=== PATIENT | male | born 1955 | race Caucasian/White ===

== ENCOUNTER 2020-01-26 12:43 | Inpatient (IN) | payer BC, MEDICARE ==
[2020-01-26] MEDS ORDERED: FUROSEMIDE 10 MG/ML 4 ML VIAL IV STA ×2 (13:06→18:27)
--- NOTE | 2020-01-26 13:12 | ED ---
General Adult HPI - General Chief complaint: Weakness Stated complaint: SOB Time Seen by Provider: 01/26/20 12:53 Source: patient, RN notes reviewed Mode of arrival: ambulatory Limitations: no limitations - History of Present Illness Initial comments: Patient is a pleasant 64-year-old male presenting to the emergency Department with complaints of fatigue. Symptoms have been present for the past month. Patient does have some leg edema. Patient does have some mild dyspnea. Patient feels somewhat generally weak throughout, no isolated area of weakness. No confusion. Patient did see his doctor today and was advised come the emergency department. Her pressure has been high at home, as high as 210/110 - Related Data Home Medications Medication Instructions Recorded Confirmed Cholecalciferol (Vitamin D3) 125 mcg PO DAILY 01/26/20 01/26/20 [Vitamin D3] Lisinopril [Zestril] 30 mg PO DAILY 01/26/20 01/26/20 Magnesium Oxide 400 mg PO DAILY 01/26/20 01/26/20 Tamsulosin HCl [Flomax] 0.4 mg PO HS 01/26/20 01/26/20 metFORMIN HCL ER [Glucophage Xr] 500 mg PO HS 01/26/20 01/26/20 Allergies Allergy/AdvReac Type Severity Reaction Status Date / Time Penicillins Allergy Rash/Hives Verified 01/26/20 14:10 Review of Systems ROS Statement: Those systems with pertinent positive or pertinent negative responses have been documented in the HPI. ROS Other: All systems not noted in ROS Statement are negative. Constitutional: Denies: fever Eyes: Denies: eye pain ENT: Denies: ear pain Respiratory: Reports: cough (Chest feels congested), dyspnea Cardiovascular: Denies: chest pain Endocrine: Reports: fatigue Gastrointestinal: Denies: abdominal pain Genitourinary: Denies: dysuria Musculoskeletal: Denies: back pain Skin: Denies: rash Neurological: Denies: weakness Past Medical History Past Medical History: Diabetes Mellitus, Hypertension History of Any Multi-Drug Resistant Organisms: None Reported Past Surgical History: No Surgical Hx Reported Past Psychological History: No Psychological Hx Reported Smoking Status: Former smoker Past Alcohol Use History: None Reported Past Drug Use History: None Reported General Exam Limitations: no limitations General appearance: alert, in no apparent distress Head exam: Present: normocephalic Eye exam: Present: normal appearance, PERRL Neck exam: Present: normal inspection Respiratory exam: Present: normal lung sounds bilaterally Cardiovascular Exam: Present: regular rate, normal rhythm GI/Abdominal exam: Present: soft. Absent: tenderness Extremities exam: Present: normal inspection, pedal edema (+1 bilateral). Absent: calf tenderness Back exam: Present: normal inspection Neurological exam: Present: alert Psychiatric exam: Present: normal affect, normal mood Skin exam: Present: normal color Course Vital Signs 01/26/20 01/26/20 12:45 14:14 Temperature 98.5 F Pulse Rate 92 65 Respiratory 16 16 Rate Blood Pressure 231/103 183/113 O2 Sat by Pulse 96 94 L Oximetry - Reevaluation(s) Reevaluation #1: 01/26/20 14:24 Chest x-ray is questionable for pneumonia. Patient does have mild elevation of white blood cell count and heart rate and therefore meets sepsis criteria. Blood culture and lactic acid will be ordered. IV antibiotics will be ordered. EKG Findings - EKG Comments: EKG Findings:: Sinus rhythm at 68. RI 126. QRS 136. QT 444. QTC 472. Normal axis. Right bundle branch block. No acute ST change. Medical Decision Making - Medical Decision Making Patient reevaluated and updated. Case discussed in detail Dr. Snowden, who will admit. He requests pro calcitonin level and cardiology consult. - Lab Data Result diagrams: 01/26/20 13:12 01/26/20 13:12 Lab Results 01/26/20 01/26/20 01/26/20 Range/Units 13:12 13:12 13:12 WBC 12.7 H (3.8-10.6) k/uL RBC 4.90 (4.30-5.90) m/uL Hgb 15.1 (13.0-17.5) gm/dL Hct 46.3 (39.0-53.0) % MCV 94.4 (80.0-100.0) fL MCH 30.8 (25.0-35.0) pg MCHC 32.7 (31.0-37.0) g/dL RDW 13.9 (11.5-15.5) % Plt Count 200 (150-450) k/uL Neutrophils % 89 % Lymphocytes % 5 % Monocytes % 5 % Eosinophils % 0 % Basophils % 0 % Neutrophils # 11.2 H (1.3-7.7) k/uL Lymphocytes # 0.6 L (1.0-4.8) k/uL Monocytes # 0.7 (0-1.0) k/uL Eosinophils # 0.0 (0-0.7) k/uL Basophils # 0.0 (0-0.2) k/uL PT 10.2 (9.0-12.0) sec INR 1.0 (<1.2) APTT 20.0 L (22.0-30.0) sec Sodium 138 (137-145) mmol/L Potassium 3.5 (3.5-5.1) mmol/L Chloride 103 (98-107) mmol/L Carbon Dioxide 26 (22-30) mmol/L Anion Gap 9 mmol/L BUN 23 H (9-20) mg/dL Creatinine 0.74 (0.66-1.25) mg/dL Est GFR (CKD-EPI)AfAm >90 (>60 ml/min/1.73 sqM) Est GFR (CKD-EPI)NonAf >90 (>60 ml/min/1.73 sqM) Glucose 381 H (74-99) mg/dL Calcium 9.2 (8.4-10.2) mg/dL Total Bilirubin 0.8 (0.2-1.3) mg/dL AST 26 (17-59) U/L ALT 33 (4-49) U/L Alkaline Phosphatase 53 (38-126) U/L Creatine Kinase 70 (55-170) U/L Troponin I (0.000-0.034) ng/mL NT-Pro-B Natriuret Pep pg/mL Total Protein 6.1 L (6.3-8.2) g/dL Albumin 3.9 (3.5-5.0) g/dL Urine Color Urine Appearance (Clear) Urine pH (5.0-8.0) Ur Specific Atlas (1.001-1.035) Urine Protein (Negative) Urine Glucose (UA) (Negative) Urine Ketones (Negative) Urine Blood (Negative) Urine Nitrite (Negative) Urine Bilirubin (Negative) Urine Urobilinogen (<2.0) mg/dL Ur Leukocyte Esterase (Negative) Urine RBC (0-5) /hpf Urine WBC (0-5) /hpf 07/16/20 07/16/20 07/16/20 Range/Units 13:12 13:12 13:32 WBC (3.8-10.6) k/uL RBC (4.30-5.90) m/uL Hgb (13.0-17.5) gm/dL Hct (39.0-53.0) % MCV (80.0-100.0) fL MCH (25.0-35.0) pg MCHC (31.0-37.0) g/dL RDW (11.5-15.5) % Plt Count (150-450) k/uL Neutrophils % % Lymphocytes % % Monocytes % % Eosinophils % % Basophils % % Neutrophils # (1.3-7.7) k/uL Lymphocytes # (1.0-4.8) k/uL Monocytes # (0-1.0) k/uL Eosinophils # (0-0.7) k/uL Basophils # (0-0.2) k/uL PT (9.0-12.0) sec INR (<1.2) APTT (22.0-30.0) sec Sodium (137-145) mmol/L Potassium (3.5-5.1) mmol/L Chloride (98-107) mmol/L Carbon Dioxide (22-30) mmol/L Anion Gap mmol/L BUN (9-20) mg/dL Creatinine (0.66-1.25) mg/dL Est GFR (CKD-EPI)AfAm (>60 ml/min/1.73 sqM) Est GFR (CKD-EPI)NonAf (>60 ml/min/1.73 sqM) Glucose (74-99) mg/dL Calcium (8.4-10.2) mg/dL Total Bilirubin (0.2-1.3) mg/dL AST (17-59) U/L ALT (4-49) U/L Alkaline Phosphatase (38-126) U/L Creatine Kinase (55-170) U/L Troponin I 0.031 (0.000-0.034) ng/mL NT-Pro-B Natriuret Pep 955 pg/mL Total Protein (6.3-8.2) g/dL Albumin (3.5-5.0) g/dL Urine Color Light Yellow Urine Appearance Clear (Clear) Urine pH 7.0 (5.0-8.0) Ur Specific Atlas 1.023 (1.001-1.035) Urine Protein 2+ H (Negative) Urine Glucose (UA) 4+ H (Negative) Urine Ketones Negative (Negative) Urine Blood Small H (Negative) Urine Nitrite Negative (Negative) Urine Bilirubin Negative (Negative) Urine Urobilinogen <2.0 (<2.0) mg/dL Ur Leukocyte Esterase Negative (Negative) Urine RBC 1 (0-5) /hpf Urine WBC 1 (0-5) /hpf - Radiology Data Radiology results: image reviewed (Chest x-ray shows questionable infiltrate) Critical Care Time Critical Care Time: Yes Total Critical Care Time: 32 Disposition Clinical Impression: Hypertensive urgency, Hyperglycemia, Pneumonia, Sepsis Disposition: ADMITTED IP TO THIS HOSP Is patient prescribed a controlled substance at d/c from ED?: No Referrals: Arely Snowden DO [Primary Care Provider] - 1-2 days Decision Time: 14:24
[2020-01-26 13:36] LABS: Basophils % (A) 0 %; Eosinophils % (A) 0 %; HCT 46.3 % (39.0-53.0); HGB 15.1 gm/dL (13.0-17.5); Lymphocytes # (A) 0.6 k/uL (1.0-4.8); Lymphocytes % (A) 5 %; MCH 30.8 pg (25.0-35.0); MCHC 32.7 g/dL (31.0-37.0); MCV 94.4 fL (80.0-100.0); Mean Platelet Volume 7.4; Monocytes # (A) 0.7 k/uL (0-1.0); Monocytes % (A) 5 %; Neutrophils # (A) 11.2 k/uL (1.3-7.7); Neutrophils % (A) 89 %; Platelet Count 200 k/uL (150-450); RDW 13.9 % (11.5-15.5); WBC 12.7 k/uL (3.8-10.6)
[2020-01-26] MEDS ORDERED: NITROGLYCERIN OINT 1 INCH/GM PACKET TOPICAL STA (13:44)
[2020-01-26 13:50] LABS: Prothrombin Time 10.2 sec (9.0-12.0)
[2020-01-26 13:56] LABS: ALT 33 U/L (4-49); AST 26 U/L (17-59); African American GFR (CKD) >90 (>60 ml/min/1.73 sqM); Albumin 3.9 g/dL (3.5-5.0); Alkaline Phosphatase 53 U/L (38-126); Anion Gap 9 mmol/L; Blood Urea Nitrogen 23 mg/dL (9-20); Calcium 9.2 mg/dL (8.4-10.2); Carbon Dioxide 26 mmol/L (22-30); Chloride 103 mmol/L (98-107); Creatine Kinase 70 U/L (55-170); Glucose 381 mg/dL (74-99); Non-African American GFR(CKD) >90 (>60 ml/min/1.73 sqM); Potassium 3.5 mmol/L (3.5-5.1); Sodium 138 mmol/L (137-145); Total Bilirubin 0.8 mg/dL (0.2-1.3); Total Protein 6.1 g/dL (6.3-8.2)
[2020-01-26 14:04] LABS: Appearance,Urine Clear (Clear); Bilirubin,Urine Negative (Negative); Blood,Urine Small (Negative); Color,Urine Light Yellow; Glucose,Urine (UA) 4+ (Negative); Ketones,Urine Negative (Negative); Leukocyte Esterase,Urine Negative (Negative); Nitrite,Urine Negative (Negative); Protein,Urine 2+ (Negative); RBC,Urine 1 /hpf (0-5); Specific Gravity,Urine 1.023 (1.001-1.035); Urobilinogen,Urine <2.0 mg/dL (<2.0); WBC,Urine 1 /hpf (0-5)
--- NOTE | 2020-01-26 14:09 | XR ---
EXAMINATION TYPE: XR chest 2V DATE OF EXAM: 01/26/2020 COMPARISON: NONE HISTORY: Difficulty breathing, shortness of breath TECHNIQUE: Frontal and lateral views of the chest are obtained. FINDINGS: There is questionable minimal patchy bilateral density, pleural effusion, or pneumothorax seen. The cardiac silhouette size is within normal limits. The osseous structures are intact. Aort a is dense. IMPRESSION: Correlate for pneumonia
[2020-01-26] MEDS ORDERED: ENALAPRILAT 1.25 MG/ML 1 ML VIAL IVP STA (14:33)
[2020-01-26] MEDS ORDERED: PNEUMONIA PROTOCOL UTILIZED 1 EACH MISC PO PRN (14:34)
[2020-01-26] MEDS ORDERED: AZITHROMYCIN 500 MG in SODIUM CHLORIDE 0.9% 250 ML IVPB STA (14:34)
[2020-01-26 15:10] LABS: Glucose,Whole Blood 342 mg/dL (75-99)
[2020-01-26] MEDS: INSULIN ASPART (NovoLOG) 100 UNIT/ML VIAL SQ SCH ×2 (16:25→21:42)
[2020-01-26 16:30] LABS: Glucose,Whole Blood 373 mg/dL (75-99)
[2020-01-26] MEDS: ENALAPRILAT 1.25 MG/ML 1 ML VIAL IVP PRN (16:35)
[2020-01-26] MEDS ORDERED: hydrALAZINE HCL 20 MG/ML 1 ML VIAL IVP STA (18:27)
[2020-01-26 20:27] LABS: Glucose,Whole Blood 214 mg/dL (75-99)
[2020-01-27] MEDS: ENALAPRILAT 1.25 MG/ML 1 ML VIAL IVP PRN ×2 (00:30→20:46)
[2020-01-27 06:01] LABS: Glucose,Whole Blood 224 mg/dL (75-99)
[2020-01-27] MEDS: INSULIN ASPART (NovoLOG) 100 UNIT/ML VIAL SQ SCH ×4 (06:59→19:49)
--- NOTE | 2020-01-27 08:04 | XR ---
EXAMINATION TYPE: XR chest 2V DATE OF EXAM: 01/27/2020 COMPARISON: 01/26/2020 INDICATION: Pneumonia TECHNIQUE: Frontal and lateral views of the chest are obtained. FINDINGS: The heart size is normal. The pulmonary vasculature is normal. Minimal increased lung markings are in the lower lung bonner. Suspicious focal consolidations are no t evident. IMPRESSION: 1. Minimal stable nonspecific lung markings 2. Exam appears stable from comparison.
[2020-01-27] MEDS ORDERED: METOPROLOL TARTRATE 25 MG TAB PO SCH (09:00)
[2020-01-27 09:17] LABS: Basophils % (A) 0 %; Eosinophils % (A) 0 %; HGB 15.5 gm/dL (13.0-17.5); Lymphocytes # (A) 0.8 k/uL (1.0-4.8); Lymphocytes % (A) 6 %; MCH 30.6 pg (25.0-35.0); MCV 92.7 fL (80.0-100.0); Mean Platelet Volume 7.3; Monocytes # (A) 0.8 k/uL (0-1.0); Monocytes % (A) 6 %; Neutrophils # (A) 11.9 k/uL (1.3-7.7); Neutrophils % (A) 87 %; Platelet Count 221 k/uL (150-450); RBC 5.07 m/uL (4.30-5.90); RDW 13.7 % (11.5-15.5); WBC 13.6 k/uL (3.8-10.6)
[2020-01-27 09:25] LABS: African American GFR (CKD) >90 (>60 ml/min/1.73 sqM); Anion Gap 12 mmol/L; Blood Urea Nitrogen 23 mg/dL (9-20); Calcium 8.7 mg/dL (8.4-10.2); Carbon Dioxide 29 mmol/L (22-30); Chloride 98 mmol/L (98-107); Glucose 310 mg/dL (74-99); Non-African American GFR(CKD) >90 (>60 ml/min/1.73 sqM); Sodium 139 mmol/L (137-145)
[2020-01-27 09:32] LABS: Potassium 2.5 mmol/L (3.5-5.1)
[2020-01-27] MEDS ORDERED: Potassium Replacement Protocol 1 EACH MISC MISCELLANE PRN (09:50)
[2020-01-27] MEDS: hydrALAZINE HCL 50 MG TAB PO SCH ×3 (09:52→21:49)
[2020-01-27] MEDS: lisinopriL 20 MG TAB PO SCH ×2 (09:52→19:47)
[2020-01-27] MEDS: amLODIPine 5 MG TAB PO SCH ×2 (09:52→19:47)
[2020-01-27] MEDS: AZITHROMYCIN 500 MG TAB PO SCH (09:52)
[2020-01-27] MEDS ORDERED: POTASSIUM CHLORIDE 20 MEQ in WATER FOR INJECTION 1 100ML.BAG IVPB SCH (10:00)
[2020-01-27] MEDS: POTASSIUM CHLORIDE ER 20 MEQ TAB.ER PO SCH ×8 (10:17→21:49)
[2020-01-27 11:34] VITALS: BMI 27.3
[2020-01-27 12:07] LABS: Glucose,Whole Blood 281 mg/dL (75-99)
--- NOTE | 2020-01-27 13:45 | ECHOF ---
Referral Reason:hypertension MEASUREMENTS -------- HEIGHT: 180.3 cm WEIGHT: 88.5 kg BP: 180/97 RVIDd: 3.3 cm (< 3.3) IVSd: 1.6 cm (0.6 - 1.1) LVIDd: 4.0 cm (3.9 - 5.3) LVPWd: 1.3 cm (0.6 - 1.1) IVSs: 2.0 cm LVIDs: 2.5 cm LVPWs: 2.1 cm LAESV Index (A-L): 23.95 ml/m Ao Diam: 3.7 cm (2.0 - 3.7) AV Cusp: 2.3 cm (1.5 - 2.6) MV EXCURSION: 13.189 mm (> 18.000) MV EF SLOPE: 69 mm/s (70 - 150) EPSS: 1.2 cm MV E Roger: 0.95 m/s MV DecT: 248 ms MV A Roger: 1.30 m/s MV E/A Ratio: 0.73 RAP: 5.00 mmHg RVSP: 22.32 mmHg FINDINGS -------- Sinus rhythm. This was a technically difficult study with suboptimal views. The left ventricular size is normal. There is moderate concentric left ventricular hypertrophy. O verall left ventricular systolic function is normal with, an EF between 55 - 60 %. The diastolic fi lling pattern is normal for the age of the patient 12.75. The right ventricle is normal in size. Normal LA size by volume 22+/-6 ml/m2. The right atrial size is normal. xx ml of Lumason was utilized for enhancement of images. Interatrial and interventricular septum intact. There is mild aortic valve sclerosis. There is no evidence of aortic regurgitation. There is no e vidence of aortic stenosis. The mitral valve is normal. Mild mitral regurgitation is present. The tricuspid valve appears structurally normal. Mild tricuspid regurgitation present. Right vent ricular systolic pressure is normal at < 35 mmHg. The right ventricular systolic pressure, as measu red by Doppler, is 22.32mmHg. There is no pulmonic regurgitation present. The aortic root size is normal. IVC Not well visulized. There is no pericardial effusion. CONCLUSIONS -------- 1. There is moderate concentric left ventricular hypertrophy. 2. Overall left ventricular systolic function is normal with, an EF between 55 - 60 %. 3. The diastolic filling pattern is normal for the age of the patient 12.75 4. Normal LA size by volume 22+/-6 ml/m2. 5. There is mild aortic valve sclerosis. 6. Mild mitral regurgitation is present. 7. Mild tricuspid regurgitation present. SMOKING PIPE MOUNTER: Awa Kurtz RDCS
[2020-01-27 16:48] LABS: Glucose,Whole Blood 281 mg/dL (75-99)
[2020-01-27 18:21] LABS: Hemoglobin A1C 7.8 % (4.0-6.0)
--- NOTE | 2020-01-27 18:50 | CONS ---
CONSULTATION This is a 64-year-old gentleman, a patient of Dr. Arely Snowden, who has been admitted to the hospital with accelerated hypertension. Apparently this gentleman has type 2 diabetes and also hypertension, but of late his blood pressure control has been suboptimal. He also has benign prostatic hypertrophy. He came into the emergency room with complaints of fatigue, lack of energy, some shortness of breath, and he was found to have accelerated blood pressure of 210/110. He saw his primary care physician, who advised him to go to the emergency room. At the time of my evaluation, his blood pressure is still elevated but definitely better. He is resting comfortably. Does not have any headache, chest pain, shortness of breath or palpitations. He tells me that his blood sugar control has also been suboptimal. He is not able to exercise much. He does not have much energy and has fatigue. PAST MEDICAL HISTORY: 1. Hypertension. 2. Type 2 diabetes. 3. No evidence of any prior surgeries. 4. No evidence of any prior myocardial infarction, CVA or any stress testing. ALLERGIES: PENICILLIN. MEDICATIONS: Vitamin D supplement, Zestril 30 mg daily, magnesium supplements, Flomax 0.4 mg daily, and metformin 500 mg daily. PHYSICAL EXAMINATION: On examination, blood pressure was 170/80. Pulse rate was about 70 per minute, regular. HEENT unremarkable. Fundus was not examined by me. Neck is supple. There is no JVD. I do not hear a carotid bruit. Heart exam reveals S1, S2. There is a short systolic murmur. Lungs reveal decent air entry. Abdomen is soft, nontender. Lower extremities reveal diminished pulses. Central nervous system is normal. EKG revealed sinus mechanism, right bundle. No other acute changes. LABORATORY DATA: Laboratory data revealed that his potassium was low this morning. His initial troponin level was unremarkable. IMPRESSION: 1. Accelerated hypertension. 2. Uncontrolled diabetes. 3. No evidence of any documented coronary artery disease in the past. RECOMMENDATIONS: I am recommending that we optimize his blood pressure first. I will check a hemoglobin A1c also. Amlodipine 5 mg b.i.d., metoprolol 25 mg daily, hydralazine 50 mg t.i.d., and also try lisinopril 20 mg daily. Obtain echocardiogram to assess LV function. Based on these findings, I will make further recommendations. We will also correct the potassium level. I discussed my thoughts in detail with the patient. Thank you very much for the consult. ERICK / CARON: [id number] /
[2020-01-27 19:46] LABS: Glucose,Whole Blood 324 mg/dL (75-99)
[2020-01-27] MEDS: traZODone HCL 50 MG TAB PO PRN (21:49)
--- NOTE | 2020-01-27 23:39 | P.HPIM ---
History of Present Illness H&P Date: 01/27/20 Chief Complaint: malaise, fatigue Eitan Quezada is a 64 yo M with PMH of HTN, T2DM who presented to the ED on the recommendation of his PCP with hypertensive emergency. He notes he has been feeling increasing fatigued and malaised over the past few days, not like himself and less exercise tolerance. Pt has been noting shortness of breath with ambulation. He denies any chest pain, palpitations or orthopnea. He was seen at PCP office with these concerns and found to have accelerated hypertension and was recommended to come to the hospital. On presentation his BP was 231/103, WBC 12k, lactic 3.3, renal function normal. EKG and trop normal. CXR with bilateral infiltrate. Pt was started on abx and given hydralazine and lasix with some improvement in his BP. Review of Systems All systems: negative Constitutional: Reports malaise, Reports weakness, Denies chills, Denies fever Eyes: denies blurred vision, denies pain Ears, nose, mouth and throat: Denies headache, Denies sore throat Cardiovascular: Denies chest pain, Denies shortness of breath Respiratory: Reports as per HPI, Reports cough, Reports dyspnea Gastrointestinal: Denies abdominal pain, Denies diarrhea, Denies nausea, Denies vomiting Musculoskeletal: Denies myalgias Integumentary: Denies pruritus, Denies rash Neurological: Denies numbness, Denies weakness Psychiatric: Denies anxiety, Denies depression Endocrine: Denies fatigue, Denies weight change Past Medical History Past Medical History: Diabetes Mellitus, Hypertension Additional Past Medical History / Comment(s): Enlarged prostate History of Any Multi-Drug Resistant Organisms: None Reported Past Surgical History: No Surgical Hx Reported Past Anesthesia/Blood Transfusion Reactions: No Reported Reaction Past Psychological History: No Psychological Hx Reported Smoking Status: Former smoker Past Alcohol Use History: None Reported Past Drug Use History: None Reported Medications and Allergies Home Medications Medication Instructions Recorded Confirmed Type Cholecalciferol (Vitamin D3) 125 mcg PO DAILY 01/26/20 01/26/20 History [Vitamin D3] Lisinopril [Zestril] 30 mg PO DAILY 01/26/20 01/26/20 History Magnesium Oxide 400 mg PO DAILY 01/26/20 01/26/20 History Tamsulosin HCl [Flomax] 0.4 mg PO HS 01/26/20 01/26/20 History metFORMIN HCL ER [Glucophage Xr] 500 mg PO HS 01/26/20 01/26/20 History Allergies Allergy/AdvReac Type Severity Reaction Status Date / Time Penicillins Allergy Rash/Hives Verified 01/26/20 14:10 Physical Exam Vitals: Vital Signs Temp Pulse Resp BP Pulse Ox 01/27/20 23:09 61 16 01/27/20 23:08 98.1 F 61 16 180/88 94 L 01/27/20 20:44 201/96 01/27/20 20:00 67 18 01/27/20 19:42 98.3 F 67 18 206/93 96 01/27/20 15:43 70 18 01/27/20 15:16 98.6 F 70 18 200/93 92 L 01/27/20 11:52 62 16 01/27/20 11:26 62 16 173/85 90 L 01/27/20 08:00 98.4 F 85 16 219/91 95 01/27/20 04:00 55 L 18 180/97 94 L 01/27/20 00:00 64 18 185/86 94 L Intake and Output 01/27/20 01/27/20 01/28/20 14:59 22:59 06:59 Intake Total 480 240 Output Total 450 1400 Balance 30 -1160 Intake: Oral 480 240 Output: Urine 450 1400 Other: Voiding Method Toilet Toilet Toilet Urinal Urinal Urinal Weight 88.9 kg General: well nourished, well developed, NAD. Vitals reviewed Eyes: PERRL, EOMI, conjunctiva normal HENT: normocephalic, mucus membranes moist Neck: supple, no JVD Lungs: normal respiratory effort, no wheezes or rales CV: Regular rate and rhythm, no murmur. Peripheral pulses 2+ Abdomen: soft, nondistended, no organomegaly Lymph: no cervical or axillary LAD Skin: warm and dry. Neuro: A&Ox3, normal mood and affect Results CBC & Chem 7: 01/27/20 08:26 01/27/20 18:22 Labs: Abnormal Lab Results - Last 24 Hours (Table) 01/27/20 01/27/20 01/27/20 Range/Units 06:00 08:26 08:26 WBC 13.6 H (3.8-10.6) k/uL Neutrophils # 11.9 H (1.3-7.7) k/uL Lymphocytes # 0.8 L (1.0-4.8) k/uL Potassium 2.5 L* (3.5-5.1) mmol/L BUN 23 H (9-20) mg/dL Glucose 310 H (74-99) mg/dL POC Glucose (mg/dL) 224 H (75-99) mg/dL Hemoglobin A1c (4.0-6.0) % 01/27/20 01/27/20 01/27/20 Range/Units 08:26 12:06 16:47 WBC (3.8-10.6) k/uL Neutrophils # (1.3-7.7) k/uL Lymphocytes # (1.0-4.8) k/uL Potassium (3.5-5.1) mmol/L BUN (9-20) mg/dL Glucose (74-99) mg/dL POC Glucose (mg/dL) 281 H 281 H (75-99) mg/dL Hemoglobin A1c 7.8 H (4.0-6.0) % 01/27/20 01/27/20 Range/Units 18:22 19:44 WBC (3.8-10.6) k/uL Neutrophils # (1.3-7.7) k/uL Lymphocytes # (1.0-4.8) k/uL Potassium 2.8 L (3.5-5.1) mmol/L BUN (9-20) mg/dL Glucose (74-99) mg/dL POC Glucose (mg/dL) 324 H (75-99) mg/dL Hemoglobin A1c (4.0-6.0) % Microbiology - Last 24 Hours (Table) 01/26/20 14:55 Blood Culture - Preliminary Blood No Growth after 24 hours Thrombosis Risk Factor Assmnt - Choose All That Apply Each Risk Factor Represents 2 Points: Age 61-74 years Thrombosis Risk Factor Assessment Total Risk Factor Score: 2 Thrombosis Risk Factor Assessment Level: Low Risk Assessment and Plan (1) Hypertensive emergency Current Visit: Yes Status: Acute Code(s): I16.1 - HYPERTENSIVE EMERGENCY SNOMED Code(s): 671026814310252 (2) Essential hypertension Current Visit: Yes Status: Acute Code(s): I10 - ESSENTIAL (PRIMARY) HYPERTENSION SNOMED Code(s): 64653630 (3) Community acquired pneumonia Current Visit: Yes Status: Acute Code(s): J18.9 - PNEUMONIA, UNSPECIFIED ORGANISM SNOMED Code(s): 548477687 (4) Type 2 diabetes mellitus Current Visit: Yes Status: Acute Code(s): E11.9 - TYPE 2 DIABETES MELLITUS WITHOUT COMPLICATIONS SNOMED Code(s): 91382796 Plan: 1. Hypertensive emergency. Likely exacerbated by pneumonia. Cardiology consult, start norvasc, lasix, hydralazine. Echo scheduled 2. CAP. Rocephin and azithromycin 3. T2DM. Obtain A1c. Accucheck, sliding scale
[2020-01-28 06:27] LABS: Glucose,Whole Blood 217 mg/dL (75-99)
[2020-01-28] MEDS: INSULIN ASPART (NovoLOG) 100 UNIT/ML VIAL SQ SCH ×4 (06:35→20:53)
[2020-01-28 08:08] LABS: African American GFR (CKD) >90 (>60 ml/min/1.73 sqM); Anion Gap 9 mmol/L; Blood Urea Nitrogen 24 mg/dL (9-20); Calcium 9.2 mg/dL (8.4-10.2); Carbon Dioxide 27 mmol/L (22-30); Chloride 103 mmol/L (98-107); Glucose 211 mg/dL (74-99); Non-African American GFR(CKD) >90 (>60 ml/min/1.73 sqM); Potassium 3.4 mmol/L (3.5-5.1); Sodium 139 mmol/L (137-145)
[2020-01-28] MEDS: METOPROLOL TARTRATE 25 MG TAB PO SCH ×3 (09:11→21:58)
[2020-01-28] MEDS: AZITHROMYCIN 500 MG TAB PO SCH (09:11)
[2020-01-28] MEDS: lisinopriL 20 MG TAB PO SCH (09:11)
[2020-01-28] MEDS: hydroCHLOROthiazide 25 MG TAB PO SCH (09:11)
[2020-01-28] MEDS: hydrALAZINE HCL 50 MG TAB PO SCH ×3 (09:12→21:58)
[2020-01-28] MEDS: amLODIPine 5 MG TAB PO SCH ×2 (09:12→19:51)
[2020-01-28] MEDS: POTASSIUM CHLORIDE ER 20 MEQ TAB.ER PO SCH ×2 (09:25→10:17)
[2020-01-28 11:43] LABS: Glucose,Whole Blood 285 mg/dL (75-99)
[2020-01-28] MEDS: ENALAPRILAT 1.25 MG/ML 1 ML VIAL IVP PRN (12:36)
--- NOTE | 2020-01-28 16:12 | PN ---
PROGRESS NOTE This gentleman has history of type 2 diabetes, uncontrolled hypertension. His blood pressure is better controlled but not quite optimal. He is hypokalemic. We are supplementing potassium. I am recommending we increase lisinopril to 40 mg daily, add hydrochlorothiazide 25 mg daily and metoprolol tartrate 25 mg t.i.d. and see how he does with this combination. Prognosis remains guarded. S1-S2 heard normally. Heart sounds are distant. The lungs are clear. Abdomen and lower extremity exam unchanged. Prognosis remains guarded. We will continue blood pressure control. Echocardiogram revealed fairly well preserved left ventricular systolic function and this was reviewed with the patient. At some point in time after he recovers and gets stronger and BP control is optimized, we should perform a stress test as an outpatient. Echo revealed ejection fraction of 55% with moderate concentric LVH and there is no evidence of any significant pulmonary hypertension. MMODL / IJN: [id number] /
[2020-01-28 16:49] LABS: Glucose,Whole Blood 225 mg/dL (75-99)
[2020-01-28 20:36] LABS: Glucose,Whole Blood 149 mg/dL (75-99)
[2020-01-28] MEDS: traZODone HCL 50 MG TAB PO PRN (21:58)
--- NOTE | 2020-01-29 00:05 | P.PN ---
Subjective Progress Note Date: 01/28/20 Principal diagnosis: HTN urgency and CAP Mr. Quezada is a 64-year-old male with a past medical history of hypertension, diabetes mellitus sent in by his PCP for concerns of hypertensive emergency. Patient has been feeling increasingly fatigued along with mild difficulty in breathing so he is sent to the ED for further management. In the emergency room patient was found to have a blood pressure of 231/103. He also had chest x-ray done showing bilateral patchy densities and so being treated for committee acquired pneumonia as well. On 01/28/2020 -patient is lying in bed appears to be resting comfortably. Patient states that he still continues to feel tired and that he does not have much energy. He complains of mild difficulty in breathing. Patient denies having any chest pain or palpitations. No abdominal pain nausea vomiting or diarrhea. No dysuria or hematuria. Currently his blood pressure is under better control, cardiology adjusting his medications. On reviewing his labs sodium 139, potassium 3.4, creatinine 0.74, HbA1c 7.8. Active Medications Amlodipine Besylate (Norvasc) 5 mg PO BID [facility] Last Admin: 01/28/20 19:51 Dose: 5 mg Documented by: Azithromycin (Zithromax) 500 mg PO DAILY [facility] Last Admin: 01/28/20 09:11 Dose: 500 mg Documented by: Enalaprilat (Vasotec) 1.25 mg IVP Q4HR PRN PRN Reason: Blood Pressure - High Last Admin: 01/28/20 12:36 Dose: 1.25 mg Documented by: Hydralazine HCl (Apresoline) 50 mg PO TID [facility] Last Admin: 01/28/20 21:58 Dose: 50 mg Documented by: Hydrochlorothiazide (Hydrodiuril) 25 mg PO QAM [facility] Last Admin: 01/28/20 09:11 Dose: 25 mg Documented by: Ceftriaxone Sodium 1 gm/ (Sodium Chloride) 50 mls @ 100 mls/hr IVPB Q24HR [facility] Stop: 01/30/20 09:01 Last Admin: 01/28/20 09:10 Dose: 100 mls/hr Documented by: Insulin Aspart (Novolog) 0 unit SQ ACHS [facility]; Protocol Last Admin: 01/28/20 20:53 Dose: 1 unit Documented by: Lisinopril (Zestril) 40 mg PO DAILY [facility] Last Admin: 01/28/20 09:11 Dose: 40 mg Documented by: Metoprolol Tartrate (Lopressor) 25 mg PO TID [facility] Last Admin: 01/28/20 21:58 Dose: 25 mg Documented by: Miscellaneous Information (Pneumonia Protocol Utilized) 1 each PO ONCE PRN PRN Reason: Per Protocol Miscellaneous Information (Potassium Per Protocol) 1 each MISCELLANE DAILY PRN; Protocol PRN Reason: Per Protocol Sodium Chloride (Saline Flush) 10 ml IV BID [facility] Last Admin: 01/28/20 19:51 Dose: 10 ml Documented by: Trazodone HCl (Desyrel) 50 mg PO HS PRN PRN Reason: Insomnia Last Admin: 01/28/20 21:58 Dose: 50 mg Documented by: Objective - Vital Signs Vital signs: Vital Signs Temp 98 F 01/28/20 16:00 Pulse 96 01/28/20 16:00 Resp 18 01/28/20 16:00 BP 195/92 01/28/20 16:00 Pulse Ox 96 01/28/20 16:00 Intake & Output 01/27/20 01/28/20 01/28/20 18:59 06:59 18:59 Intake Total 720 600 840 Output Total 1850 900 Balance -1130 600 -60 Weight 88.9 kg 89.1 kg Intake: Oral 720 600 840 Output: Urine 1850 900 Other: Voiding Method Toilet Toilet Toilet Urinal Urinal Urinal # Voids 2 - Exam General: well nourished, well developed. Eyes: PERRL, EOMI, conjunctiva normal HENT: normocephalic, mucus membranes moist Neck: supple, no JVD Lungs: Bilateral ronchi, no wheezing or crackles. CVS: Regular rate and rhythm, no murmur. Peripheral pulses 2+ Abdomen: soft, nondistended, no organomegaly Skin: warm and dry. Neuro: A&Ox3, normal mood and affect - Labs CBC & Chem 7: 01/27/20 08:26 01/28/20 07:37 Labs: Abnormal Lab Results - Last 24 Hours (Table) 01/27/20 01/27/20 01/27/20 Range/Units 08:26 18:22 19:44 Potassium 2.8 L (3.5-5.1) mmol/L BUN (9-20) mg/dL Glucose (74-99) mg/dL POC Glucose (mg/dL) 324 H (75-99) mg/dL Hemoglobin A1c 7.8 H (4.0-6.0) % 01/28/20 01/28/20 01/28/20 Range/Units 06:25 07:37 11:41 Potassium 3.4 L (3.5-5.1) mmol/L BUN 24 H (9-20) mg/dL Glucose 211 H (74-99) mg/dL POC Glucose (mg/dL) 217 H 285 H (75-99) mg/dL Hemoglobin A1c (4.0-6.0) % 01/28/20 Range/Units 16:48 Potassium (3.5-5.1) mmol/L BUN (9-20) mg/dL Glucose (74-99) mg/dL POC Glucose (mg/dL) 225 H (75-99) mg/dL Hemoglobin A1c (4.0-6.0) % Microbiology - Last 24 Hours (Table) 01/26/20 14:55 Blood Culture - Preliminary Blood No Growth after 48 hours Assessment and Plan Assessment: ASSESSMENT Hypertensive emergency Committee acquired pneumonia Type 2 diabetes mellitus Enlarged prostate Former smoker PLAN: Patient's blood pressure is under much better control with the current medication regimen, cardiology on board and adjusting his blood pressure medications. Continue with ceftriaxone and Zithromax for community-acquired pneumonia. Will adjust the dose of insulin depending upon his blood sugars. Continue with the current medication regimen. Further recommendations to follow depending on the progress of the patient.
[2020-01-29 06:13] LABS: Glucose,Whole Blood 168 mg/dL (75-99)
[2020-01-29] MEDS: INSULIN ASPART (NovoLOG) 100 UNIT/ML VIAL SQ SCH ×4 (06:24→20:43)
[2020-01-29 08:15] LABS: African American GFR (CKD) >90 (>60 ml/min/1.73 sqM); Anion Gap 10 mmol/L; Blood Urea Nitrogen 27 mg/dL (9-20); Calcium 9.3 mg/dL (8.4-10.2); Carbon Dioxide 26 mmol/L (22-30); Chloride 100 mmol/L (98-107); Glucose 185 mg/dL (74-99); Non-African American GFR(CKD) >90 (>60 ml/min/1.73 sqM); Sodium 136 mmol/L (137-145)
[2020-01-29] MEDS: amLODIPine 5 MG TAB PO SCH ×2 (08:19→20:43)
[2020-01-29] MEDS: METOPROLOL TARTRATE 25 MG TAB PO SCH ×3 (08:19→20:43)
[2020-01-29] MEDS: ENOXAPARIN 40 MG/0.4 ML SYRINGE SQ SCH ×2 (08:19→09:27)
[2020-01-29] MEDS: hydrALAZINE HCL 50 MG TAB PO SCH ×3 (08:19→23:07)
[2020-01-29] MEDS: lisinopriL 20 MG TAB PO SCH (08:19)
[2020-01-29] MEDS: AZITHROMYCIN 500 MG TAB PO SCH (08:19)
[2020-01-29] MEDS: hydroCHLOROthiazide 25 MG TAB PO SCH (08:19)
[2020-01-29 09:20] LABS: Basophils % (A) 0 %; Eosinophils % (A) 0 %; HCT 48.8 % (39.0-53.0); HGB 16.9 gm/dL (13.0-17.5); Lymphocytes % (A) 6 %; MCH 32.3 pg (25.0-35.0); MCHC 34.6 g/dL (31.0-37.0); MCV 93.4 fL (80.0-100.0); Mean Platelet Volume 7.5; Monocytes # (A) 0.8 k/uL (0-1.0); Monocytes % (A) 5 %; Neutrophils # (A) 14.5 k/uL (1.3-7.7); Neutrophils % (A) 88 %; Platelet Count 258 k/uL (150-450); RBC 5.23 m/uL (4.30-5.90); RDW 13.9 % (11.5-15.5); WBC 16.5 k/uL (3.8-10.6)
[2020-01-29] MEDS ORDERED: Potassium Replacement Protocol 1 EACH MISC MISCELLANE PRN ×2 (10:11→15:32)
[2020-01-29 11:19] LABS: Glucose,Whole Blood 259 mg/dL (75-99)
[2020-01-29] MEDS: POTASSIUM CHLORIDE ER 20 MEQ TAB.ER PO SCH ×5 (11:33→17:41)
--- NOTE | 2020-01-29 13:32 | PN ---
PROGRESS NOTE Mr. Quezada feels better ambulating. No chest pain. Blood pressure control is improved. Sugar control is also improving. I am advising that we continue current medical regimen, increase activity and he can be discharged and I will see him in the office in 2 weeks. Advised to get into a walking program to improve his condition and optimize blood sugar control as well. Blood pressure seems to be under reasonable control. We will continue the same. MMODL / IJN: [id number] /
--- NOTE | 2020-01-29 15:07 | P.DS ---
Providers Date of admission: 01/26/20 14:34 Expected date of discharge: 01/29/20 Attending physician: Matt Snowden MD Consults: 01/26/20 14:34 Consult Physician Routine Consulting Provider: Deirdre Jorgensen Consult Reason/Comments: htn urgency, Do you want consulting provider notified?: Yes Primary care physician: [facility] Hospital Course: Mr. Quezada is a 64-year-old male with a past medical history of hypertension, diabetes mellitus sent in by his PCP for concerns of hypertensive emergency. Patient has been feeling increasingly fatigued along with mild difficulty in breathing so he is sent to the ED for further management. In the emergency room patient was found to have a blood pressure of 231/103. He also had chest x-ray done showing bilateral patchy densities and so being treated for community acquired pneumonia as well. Hospital course - as the patient's blood pressure was too high, cardiology services have been consulted and the patient has been started on Lopressor, hydrochlorothiazide, Norvasc and his dose of lisinopril has been increased to 40 mg daily. With these medications patient's blood pressure remained within normal limits. He was cleared by cardiology to be discharged home. Patient responded to ceftriaxone and Zithromax, his breathing has improved and he is not feeling fatigued anymore. Patient states that his energy levels are back to normal. He denies having any difficulty in breathing or chest pain or cough. He has been tested negative for valles virus. Patient's labs from this morning have been reviewed. He has a low potassium at 3. Replace his potassium. Vital Signs - 8 hr 01/29/20 01/29/20 08:00 12:30 Temperature 98.3 F Pulse Rate [ 66 62 Pulse Oximetery ] Respiratory 18 18 Rate Blood Pressure 144/66 153/73 [Left Arm] O2 Sat by Pulse 96 94 L Oximetry - Exam General: well nourished, well developed. Eyes: PERRL, EOMI, conjunctiva normal HENT: normocephalic, mucus membranes moist Neck: supple, no JVD Lungs: Bilateral breath sounds normal, no wheezing or crackles. CVS: Regular rate and rhythm, no murmur. Peripheral pulses 2+ Abdomen: soft, nondistended, no organomegaly Skin: warm and dry. Neuro: A&Ox3, normal mood and affect DISCHARGE DIAGNOSIS Hypertensive emergency - resolved Community acquired pneumonia Hypokalemia Type 2 diabetes mellitus Enlarged prostate Former smoker PLAN: Patient is advised to complete his antibiotic course for 3 more days with Ceftin. He is being discharged on new blood pressure medications. Advised compliance with low salt diet. Advised to follow-up with his PCP in 2-3 days. More than 35 minutes spent towards the discharge of the patient. Patient Condition at Discharge: Fair Plan - Discharge Summary Discharge Rx Participant: Yes New Discharge Prescriptions: New hydrALAZINE HCL [Apresoline] 50 mg PO TID 30 Days #90 tab Hydrochlorothiazide [Hydrodiuril] 25 mg PO QAM 30 Days #30 tab Metoprolol Tartrate [Lopressor] 25 mg PO BID 30 Days #60 tab amLODIPine [Norvasc] 5 mg PO BID 30 Days #60 tab Lisinopril [Zestril] 40 mg PO DAILY 30 Days #60 tab Cefuroxime Axetil [Ceftin] 500 mg PO BID 3 Days #6 tab Continue Cholecalciferol (Vitamin D3) [Vitamin D3] 125 mcg PO DAILY metFORMIN HCL ER [Glucophage Xr] 500 mg PO HS Tamsulosin HCl [Flomax] 0.4 mg PO HS Magnesium Oxide 400 mg PO DAILY Discontinued Lisinopril [Zestril] 30 mg PO DAILY Discharge Medication List Cholecalciferol (Vitamin D3) [Vitamin D3] 125 mcg PO DAILY 01/26/20 [History] Magnesium Oxide 400 mg PO DAILY 01/26/20 [History] Tamsulosin HCl [Flomax] 0.4 mg PO HS 01/26/20 [History] metFORMIN HCL ER [Glucophage Xr] 500 mg PO HS 01/26/20 [History] Cefuroxime Axetil [Ceftin] 500 mg PO BID 3 Days #6 tab 01/29/20 [Rx] Hydrochlorothiazide [Hydrodiuril] 25 mg PO QAM 30 Days #30 tab 01/29/20 [Rx] Lisinopril [Zestril] 40 mg PO DAILY 30 Days #60 tab 01/29/20 [Rx] Metoprolol Tartrate [Lopressor] 25 mg PO BID 30 Days #60 tab 01/29/20 [Rx] amLODIPine [Norvasc] 5 mg PO BID 30 Days #60 tab 01/29/20 [Rx] hydrALAZINE HCL [Apresoline] 50 mg PO TID 30 Days #90 tab 01/29/20 [Rx] Follow up Appointment(s)/Referral(s): Arely Snowden DO [Primary Care Provider] - 1-2 days Discharge Disposition: HOME SELF-CARE
[2020-01-29 16:51] LABS: Glucose,Whole Blood 233 mg/dL (75-99)
[2020-01-29 20:08] LABS: Glucose,Whole Blood 281 mg/dL (75-99)
[2020-01-29] MEDS: POTASSIUM CHLORIDE 10 MEQ in WATER FOR INJECTION 1 100ML.BAG IVPB SCH ×3 (21:02→23:08)
[2020-01-29] MEDS: traZODone HCL 50 MG TAB PO PRN (23:08)
[2020-01-30] MEDS: POTASSIUM CHLORIDE 10 MEQ in WATER FOR INJECTION 1 100ML.BAG IVPB SCH ×3 (00:11→02:22)
[2020-01-30 06:17] LABS: Glucose,Whole Blood 204 mg/dL (75-99)
[2020-01-30] MEDS: INSULIN ASPART (NovoLOG) 100 UNIT/ML VIAL SQ SCH ×2 (06:24→12:23)
[2020-01-30 06:40] LABS: African American GFR (CKD) >90 (>60 ml/min/1.73 sqM); Anion Gap 5 mmol/L; Blood Urea Nitrogen 24 mg/dL (9-20); Calcium 8.3 mg/dL (8.4-10.2); Carbon Dioxide 27 mmol/L (22-30); Chloride 103 mmol/L (98-107); Glucose 190 mg/dL (74-99); Non-African American GFR(CKD) >90 (>60 ml/min/1.73 sqM); Sodium 135 mmol/L (137-145)
[2020-01-30] MEDS: POTASSIUM CHLORIDE ER 20 MEQ TAB.ER PO SCH ×4 (07:07→12:22)
[2020-01-30 08:24] VITALS: RESP 16; TEMP 97.9
[2020-01-30] MEDS: amLODIPine 5 MG TAB PO SCH (08:24)
[2020-01-30] MEDS: lisinopriL 20 MG TAB PO SCH (08:24)
[2020-01-30] MEDS: hydrALAZINE HCL 50 MG TAB PO SCH (08:24)
[2020-01-30] MEDS: AZITHROMYCIN 500 MG TAB PO SCH (08:25)
[2020-01-30] MEDS: METOPROLOL TARTRATE 25 MG TAB PO SCH (08:25)
[2020-01-30] MEDS: ENOXAPARIN 40 MG/0.4 ML SYRINGE SQ SCH (08:25)
[2020-01-30 10:40] LABS: Potassium 3.2 mmol/L (3.5-5.1)
[2020-01-30 11:12] VITALS: BP 177/80; PULSE 73
[2020-01-30 11:46] LABS: Glucose,Whole Blood 238 mg/dL (75-99)
[2020-01-30] MEDS ORDERED: POTASSIUM CHLORIDE ER 20 MEQ TAB.ER PO STA (12:01)
--- NOTE | 2020-01-30 12:11 | P.PN ---
Subjective This is Alison Ramirez PA-C scribing on behalf of Dr. Gilliland The patient was interviewed and examined by Dr. Gilliland HPI/interval history Patient is a 64-year-old male with a history of hypertension and diabetes who presented with complaints of fatigue and shortness of breath. He was recently on steroids. His blood pressure was in the 200s over 100s. He was also found to be hypokalemic. His antihypertensive medications have been adjusted. Blood pressure remains elevated in the 160s and 170s systolic. Potassium is still low at 3.2. Patient was seen and examined by Dr. Gilliland. He denies any symptoms of chest pain, no shortness of breath no dizziness. EXAMINATION Patient is afebrile, pulse in the 70s, respirations 16, blood pressure 177/80, oxygen saturation 96% on room air Patient seen and examined by Dr. Gilliland Lungs clear to auscultation bilaterally, no wheezing rhonchi or crackles Heart is regular, no audible murmurs No elevated JVD No carotid bruits Abdomen soft and nontender to palpation extremities warm no edema REVIEW OF LABS, ECG Echocardiogram showed EF 55-60%, moderate concentric LVH WBC 16.5, hemoglobin 16.9, platelets 258, potassium 3.2, BUN 24, creatinine 0.68 IMPRESSION / ASSESSMENT: #1 Accelerated hypertension, blood pressure remains elevated #2 hypokalemia #3 diabetes PLAN: Rule out Conn syndrome, check renin and aldosterone After drawing labs, will add spironolactone Increase hydralazine to 100 mg 3 times a day Objective - Vital Signs Vital signs: Vital Signs Temp 97.9 F 01/30/20 08:20 Pulse 73 01/30/20 11:00 Resp 16 01/30/20 11:00 BP 177/80 01/30/20 11:00 Pulse Ox 96 01/30/20 11:00 Intake & Output 01/29/20 01/30/20 01/30/20 18:59 06:59 18:59 Intake Total 1550 1260 240 Output Total 950 700 Balance 600 560 240 Weight 89.5 kg Intake: Intake, IV Titration 50 60 Amount Potassium Chloride 10 meq 60 In Water For Injection 1 100ml.bag @ 100 mls/hr IVPB Q1HR [facility] Rx#: [id number] cefTRIAXone 1 gm In 50 Sodium Chloride 0.9% 50 ml @ 100 mls/hr IVPB Q24HR [facility] Rx#:[id number] Oral 1500 1200 240 Output: Urine 950 700 Other: Voiding Method Toilet Toilet Urinal Urinal # Voids 1 - Labs CBC & Chem 7: 01/29/20 07:47 01/30/20 10:11 Labs: Abnormal Lab Results - Last 24 Hours (Table) 01/29/20 01/29/20 01/29/20 Range/Units 14:49 16:50 18:37 Sodium (137-145) mmol/L Potassium 2.6 L* 2.4 L* (3.5-5.1) mmol/L BUN (9-20) mg/dL Glucose (74-99) mg/dL POC Glucose (mg/dL) 233 H (75-99) mg/dL Calcium (8.4-10.2) mg/dL 01/29/20 01/30/20 01/30/20 Range/Units 20:05 06:12 06:16 Sodium 135 L (137-145) mmol/L Potassium 3.0 L (3.5-5.1) mmol/L BUN 24 H (9-20) mg/dL Glucose 190 H (74-99) mg/dL POC Glucose (mg/dL) 281 H 204 H (75-99) mg/dL Calcium 8.3 L (8.4-10.2) mg/dL 01/30/20 01/30/20 Range/Units 10:11 11:45 Sodium (137-145) mmol/L Potassium 3.2 L (3.5-5.1) mmol/L BUN (9-20) mg/dL Glucose (74-99) mg/dL POC Glucose (mg/dL) 238 H (75-99) mg/dL Calcium (8.4-10.2) mg/dL Microbiology - Last 24 Hours (Table) 01/26/20 14:55 Blood Culture - Preliminary Blood No Growth after 72 hours
--- NOTE | 2020-01-30 15:44 | P.DS ---
Providers Date of admission: 01/26/20 14:34 Expected date of discharge: 01/30/20 Attending physician: Matt Snowden MD Consults: 01/26/20 14:34 Consult Physician Routine Consulting Provider: Deirdre Jorgensen Consult Reason/Comments: htn urgency, Do you want consulting provider notified?: Yes Primary care physician: [facility] Course: Final diagnoses (1) Hypertensive emergency, possibly exacerbated by pneumonia Current Visit: Yes Status: Acute Code(s): I16.1 - HYPERTENSIVE EMERGENCY SNOMED Code(s): 639683116403127 (2) Essential hypertension Current Visit: Yes Status: Acute Code(s): I10 - ESSENTIAL (PRIMARY) HYPERTENSION SNOMED Code(s): 38576764 (3) Community acquired pneumonia Current Visit: Yes Status: Acute Code(s): J18.9 - PNEUMONIA, UNSPECIFIED ORGANISM SNOMED Code(s): 993315552 (4) Type 2 diabetes mellitus Current Visit: Yes Status: Acute Code(s): E11.9 - TYPE 2 DIABETES MELLITUS WITHOUT COMPLICATIONS SNOMED Code(s): 94037550 (5) former smoker Hospital course:Eitan Quezada is a 64 yo M with PMH of HTN, T2DM who presented to the ED on the recommendation of his PCP with hypertensive emergency. He notes he has been feeling increasing fatigued and malaised over the past few days, not like himself and less exercise tolerance. Pt has been noting shortness of breath with ambulation. He denies any chest pain, palpitations or orthopnea. He was seen at PCP office with these concerns and found to have accelerated hypertension and was recommended to come to the hospital. On presentation his BP was 231/103, WBC 12k, lactic 3.3, renal function normal. EKG and trop normal. CXR with bilateral infiltrate. Pt was started on abx and given hydralazine and lasix with some improvement in his BP. Hydrochlorothiazide discontinued, hypokalemic, received supplementation. Hypertensive, hydralazine increased. Patient will be DC'd home pending final DC recommendations and clearance from cardiology. The impression and plan of care has been dictated as directed. : I performed a history and examination of this patient, discussed the same with the dictator. I agree with the dictator's note ,documented as a scribe. Any additional findings or plans will be noted. Patient Condition at Discharge: Stable Plan - Discharge Summary Discharge Rx Participant: Yes New Discharge Prescriptions: New Metoprolol Tartrate [Lopressor] 25 mg PO BID 30 Days #60 tab amLODIPine [Norvasc] 5 mg PO BID 30 Days #60 tab Lisinopril [Zestril] 40 mg PO DAILY 30 Days #60 tab Cefuroxime Axetil [Ceftin] 500 mg PO BID 3 Days #6 tab Potassium Chloride ER [K-Dur 20] 40 meq PO DAILY #60 tab hydrALAZINE HCL [Apresoline] 100 mg PO TID #180 tab Continue Cholecalciferol (Vitamin D3) [Vitamin D3] 125 mcg PO DAILY metFORMIN HCL ER [Glucophage Xr] 500 mg PO HS Tamsulosin HCl [Flomax] 0.4 mg PO HS Magnesium Oxide 400 mg PO DAILY Discontinued Lisinopril [Zestril] 30 mg PO DAILY Discharge Medication List Cholecalciferol (Vitamin D3) [Vitamin D3] 125 mcg PO DAILY 01/26/20 [History] Magnesium Oxide 400 mg PO DAILY 01/26/20 [History] Tamsulosin HCl [Flomax] 0.4 mg PO HS 01/26/20 [History] metFORMIN HCL ER [Glucophage Xr] 500 mg PO HS 01/26/20 [History] Cefuroxime Axetil [Ceftin] 500 mg PO BID 3 Days #6 tab 01/29/20 [Rx] Lisinopril [Zestril] 40 mg PO DAILY 30 Days #60 tab 01/29/20 [Rx] Metoprolol Tartrate [Lopressor] 25 mg PO BID 30 Days #60 tab 01/29/20 [Rx] amLODIPine [Norvasc] 5 mg PO BID 30 Days #60 tab 01/29/20 [Rx] Potassium Chloride ER [K-Dur 20] 40 meq PO DAILY #60 tab 01/30/20 [Rx] hydrALAZINE HCL [Apresoline] 100 mg PO TID #180 tab 01/30/20 [Rx] Follow up Appointment(s)/Referral(s): Arely Snowden DO [Primary Care Provider] - 02/03/20 10:00 am Ambulatory/Diagnostic Orders: Complete Blood Count w/diff [LAB.AMB] Time Frame: 3 Days, Location: None Selected Patient Instructions/Handouts: Sepsis (GEN), Community Acquired Pneumonia (DC), Hypertensive Crisis (DC) Discharge Disposition: HOME SELF-CARE
[2020-01-30] MEDS ORDERED: hydrALAZINE HCL 50 MG TAB PO SCH (16:00)
== END 2020-01-30 16:12 | disposition home or self-care (01) | DRG 194 ==
LOC: EC 12:43 → 3SCARD 14:34
PROVIDERS: ADMIT Family Medicine; ATTEND Family Medicine
DX: J18.9 Pneumonia, unspecified organism (principal); I16.1 Hypertensive emergency; N40.0 Benign prostatic hyperplasia without lower urinary tract symptoms; I10 Essential (primary) hypertension; E11.65 Type 2 diabetes mellitus with hyperglycemia; E87.6 Hypokalemia; G47.00 Insomnia, unspecified; Z79.84 Long term (current) use of oral hypoglycemic drugs; Z79.899 Other long term (current) drug therapy; Z87.891 Personal history of nicotine dependence; Z88.0 Allergy status to penicillin; Z20.828 Contact with and (suspected) exposure to other viral communicable diseases
CPT/HCPCS: 36415; 71046; 80048; 80053; 81001; 82088; 82550; 83036; 83605; 83735; 83835; 83880; 84132; 84145; 84244; 84484; 85025; 85610; 85730; 87040; 93005; 93306; 96365; 96367; 96375; 96376; 99291

== ENCOUNTER 2020-02-18 11:26 | Inpatient (IN) | payer BC, MEDICARE ==
--- NOTE | 2020-02-18 11:58 | ED ---
General Adult HPI - General Chief complaint: Weakness Stated complaint: Weakness Time Seen by Provider: 02/18/20 11:32 Source: patient, RN notes reviewed Mode of arrival: wheelchair Limitations: no limitations - History of Present Illness Initial comments: Patient is a pleasant 64-year-old male presenting to the emergency department with weakness. Symptoms have progressed over the past several days. Patient was in the hospital a couple of weeks ago with hypertension and pneumonia. Patient did see his doctor today and was advised to come to emergency department. Patient states weakness seems to be equal between his legs and arms. Weakness does not seem to be worse in the proximal versus distal extremities. Weakness has progressively worsened. Patient needs to be assisted to stand up. Patient does need assistance with walking. No headache or confusion or speech problems. No history of similar symptoms previously. - Related Data Home Medications Medication Instructions Recorded Confirmed Cholecalciferol (Vitamin D3) 125 mcg PO DAILY 01/26/20 01/26/20 [Vitamin D3] Magnesium Oxide 400 mg PO DAILY 01/26/20 01/26/20 Tamsulosin HCl [Flomax] 0.4 mg PO HS 01/26/20 01/26/20 metFORMIN HCL ER [Glucophage Xr] 500 mg PO HS 01/26/20 01/26/20 Previous Rx's Medication Instructions Recorded Cefuroxime Axetil [Ceftin] 500 mg PO BID 3 Days #6 tab 01/29/20 Metoprolol Tartrate [Lopressor] 25 mg PO BID 30 Days #60 tab 01/29/20 amLODIPine [Norvasc] 5 mg PO BID 30 Days #60 tab 01/29/20 lisinopriL [Zestril] 40 mg PO DAILY 30 Days #60 tab 01/29/20 Potassium Chloride ER [K-Dur 20] 40 meq PO DAILY #60 tab 01/30/20 hydrALAZINE HCL [Apresoline] 100 mg PO TID #180 tab 01/30/20 Allergies Allergy/AdvReac Type Severity Reaction Status Date / Time Penicillins Allergy Rash/Hives Verified 02/18/20 11:42 Review of Systems ROS Statement: Those systems with pertinent positive or pertinent negative responses have been documented in the HPI. ROS Other: All systems not noted in ROS Statement are negative. Constitutional: Denies: fever Eyes: Denies: eye pain ENT: Denies: ear pain Respiratory: Denies: cough, dyspnea Cardiovascular: Denies: chest pain Endocrine: Denies: fatigue Gastrointestinal: Denies: abdominal pain Genitourinary: Denies: dysuria Musculoskeletal: Denies: back pain Skin: Denies: rash, lesions Neurological: Reports: as per HPI, weakness, abnormal gait. Denies: headache, paresthesias Past Medical History Past Medical History: Diabetes Mellitus, Hypertension Additional Past Medical History / Comment(s): Enlarged prostate History of Any Multi-Drug Resistant Organisms: None Reported Past Surgical History: No Surgical Hx Reported Past Anesthesia/Blood Transfusion Reactions: No Reported Reaction Past Psychological History: No Psychological Hx Reported Smoking Status: Former smoker Past Alcohol Use History: None Reported Past Drug Use History: None Reported General Exam Limitations: no limitations General appearance: alert, in no apparent distress Head exam: Present: atraumatic, normocephalic Eye exam: Present: normal appearance, PERRL, EOMI. Absent: nystagmus ENT exam: Present: normal oropharynx Neck exam: Present: normal inspection. Absent: tenderness Respiratory exam: Present: normal lung sounds bilaterally. Absent: respiratory distress Cardiovascular Exam: Present: regular rate, normal rhythm GI/Abdominal exam: Present: soft. Absent: tenderness Extremities exam: Present: normal inspection Neurological exam: Present: alert, oriented X3 Expanded Neurological exam: Present: protecting the airway Patient oriented to: Present: person, place, time Speech: Present: fluid speech Cranial nerves: EOM's Intact: Normal, Facial Sensation: Normal Sensory exam: Upper Extremity Light Touch: Normal, Lower Extremity Light Touch: Normal Motor strength exam: RUE: 3, LUE: 3, RLE: 3, LLE: 3 DTR: Patellar (R): 1+, Patellar (L): 1+ Eye Response: (4) open spontaneously Motor Response: (6) obeys commands Verbal Response: (5) oriented Psychiatric exam: Present: normal affect, normal mood Skin exam: Present: normal color Course Vital Signs 02/18/20 02/18/20 11:35 13:27 Temperature 98.3 F Pulse Rate 82 Respiratory 18 Rate Blood Pressure 164/84 167/102 O2 Sat by Pulse 97 Oximetry EKG Findings - EKG Comments: EKG Findings:: Sinus bradycardia 58. NE 128. QRS 132. QTC 437. QT 446. Normal axis. Right bundle branch block. Nonspecific ST-T. Medical Decision Making - Medical Decision Making Patient presented with symptoms concerning for possible Guillain-Rivas. Patient was found to be family hypokalemic which tensely could be the cause of weakness. Potassium is being replaced. Case was discussed in detail with neur ology, Dr. Tristan who is in agreement and will consult. Case also discussed with Dr. quarles, covering for Dr. Snowden, who will admit. Dr. Snowden was also updated. - Lab Data Result diagrams: 02/18/20 12:04 02/18/20 12:04 Lab Results 02/18/20 02/18/20 02/18/20 Range/Units 12:04 12:04 12:04 WBC 12.5 H (3.8-10.6) k/uL RBC 4.46 (4.30-5.90) m/uL Hgb 14.1 (13.0-17.5) gm/dL Hct 40.0 (39.0-53.0) % MCV 89.8 (80.0-100.0) fL MCH 31.6 (25.0-35.0) pg MCHC 35.2 (31.0-37.0) g/dL RDW 13.7 (11.5-15.5) % Plt Count 147 L (150-450) k/uL Neutrophils % 88 % Lymphocytes % 5 % Monocytes % 7 % Eosinophils % 0 % Basophils % 0 % Neutrophils # 11.0 H (1.3-7.7) k/uL Lymphocytes # 0.6 L (1.0-4.8) k/uL Monocytes # 0.8 (0-1.0) k/uL Eosinophils # 0.0 (0-0.7) k/uL Basophils # 0.0 (0-0.2) k/uL PT 10.6 (9.0-12.0) sec INR 1.0 (<1.2) APTT 19.4 L (22.0-30.0) sec Sodium 135 L (137-145) mmol/L Potassium 2.7 L* (3.5-5.1) mmol/L Chloride 99 (98-107) mmol/L Carbon Dioxide 27 (22-30) mmol/L Anion Gap 9 mmol/L BUN 32 H (9-20) mg/dL Creatinine 0.67 (0.66-1.25) mg/dL Est GFR (CKD-EPI)AfAm >90 (>60 ml/min/1.73 sqM) Est GFR (CKD-EPI)NonAf >90 (>60 ml/min/1.73 sqM) Glucose 262 H (74-99) mg/dL Calcium 8.8 (8.4-10.2) mg/dL Phosphorus 2.3 L (2.5-4.5) mg/dL Magnesium 1.8 (1.6-2.3) mg/dL Total Bilirubin 1.2 (0.2-1.3) mg/dL AST 40 (17-59) U/L ALT 34 (4-49) U/L Alkaline Phosphatase 37 L (38-126) U/L Creatine Kinase 54 L (55-170) U/L Total Protein 5.7 L (6.3-8.2) g/dL Albumin 3.6 (3.5-5.0) g/dL TSH 0.017 L (0.465-4.680) mIU/L Urine Color Urine Appearance (Clear) Urine pH (5.0-8.0) Ur Specific [place] (1.001-1.035) Urine Protein (Negative) Urine Glucose (UA) (Negative) Urine Ketones (Negative) Urine Blood (Negative) Urine Nitrite (Negative) Urine Bilirubin (Negative) Urine Urobilinogen (<2.0) mg/dL Ur Leukocyte Esterase (Negative) Urine RBC (0-5) /hpf Urine WBC (0-5) /hpf Hyaline Casts (0-2) /lpf Urine Mucus (None) /hpf 02/18/20 Range/Units 12:11 WBC (3.8-10.6) k/uL RBC (4.30-5.90) m/uL Hgb (13.0-17.5) gm/dL Hct (39.0-53.0) % MCV (80.0-100.0) fL MCH (25.0-35.0) pg MCHC (31.0-37.0) g/dL RDW (11.5-15.5) % Plt Count (150-450) k/uL Neutrophils % % Lymphocytes % % Monocytes % % Eosinophils % % Basophils % % Neutrophils # (1.3-7.7) k/uL Lymphocytes # (1.0-4.8) k/uL Monocytes # (0-1.0) k/uL Eosinophils # (0-0.7) k/uL Basophils # (0-0.2) k/uL PT (9.0-12.0) sec INR (<1.2) APTT (22.0-30.0) sec Sodium (137-145) mmol/L Potassium (3.5-5.1) mmol/L Chloride (98-107) mmol/L Carbon Dioxide (22-30) mmol/L Anion Gap mmol/L BUN (9-20) mg/dL Creatinine (0.66-1.25) mg/dL Est GFR (CKD-EPI)AfAm (>60 ml/min/1.73 sqM) Est GFR (CKD-EPI)NonAf (>60 ml/min/1.73 sqM) Glucose (74-99) mg/dL Calcium (8.4-10.2) mg/dL Phosphorus (2.5-4.5) mg/dL Magnesium (1.6-2.3) mg/dL Total Bilirubin (0.2-1.3) mg/dL AST (17-59) U/L ALT (4-49) U/L Alkaline Phosphatase (38-126) U/L Creatine Kinase (55-170) U/L Total Protein (6.3-8.2) g/dL Albumin (3.5-5.0) g/dL TSH (0.465-4.680) mIU/L Urine Color Yellow Urine Appearance Clear (Clear) Urine pH 6.5 (5.0-8.0) Ur Specific [place] 1.025 (1.001-1.035) Urine Protein 3+ H (Negative) Urine Glucose (UA) 4+ H (Negative) Urine Ketones Trace H (Negative) Urine Blood Moderate H (Negative) Urine Nitrite Negative (Negative) Urine Bilirubin Negative (Negative) Urine Urobilinogen <2.0 (<2.0) mg/dL Ur Leukocyte Esterase Negative (Negative) Urine RBC 2 (0-5) /hpf Urine WBC 2 (0-5) /hpf Hyaline Casts 5 H (0-2) /lpf Urine Mucus Rare H (None) /hpf - Radiology Data Radiology results: image reviewed (Two-view chest x-ray shows no acute process. Computed tomography scan of the brain shows somewhat limited assessment posterior fossa secondary to artifact. No obvious hemorrhage or mass effect. Degenerative and nonspecific white matter changes. Subcutaneous nodules likely sebaceous cysts.) Critical Care Time Critical Care Time: Yes Total Critical Care Time: 32 Disposition Clinical Impression: Muscle weakness, Hypokalemia Disposition: ADMITTED IP TO THIS [facility] Condition: Serious Is patient prescribed a controlled substance at d/c from ED?: No Referrals: Matt Snowden MD [Primary Care Provider] - 1-2 days Decision Time: 13:36
[2020-02-18 12:26] LABS: Appearance,Urine Clear (Clear); Bilirubin,Urine Negative (Negative); Blood,Urine Moderate (Negative); Color,Urine Yellow; Glucose,Urine (UA) 4+ (Negative); Hyaline Casts,Urine 5 /lpf (0-2); Ketones,Urine Trace (Negative); Leukocyte Esterase,Urine Negative (Negative); Mucus,Urine Rare /hpf; Nitrite,Urine Negative (Negative); PH, Urine 6.5 (5.0-8.0); Protein,Urine 3+ (Negative); RBC,Urine 2 /hpf (0-5); Specific Gravity,Urine 1.025 (1.001-1.035); Urobilinogen,Urine <2.0 mg/dL (<2.0); WBC,Urine 2 /hpf (0-5)
--- NOTE | 2020-02-18 12:33 | XR ---
EXAMINATION TYPE: XR chest 2V DATE OF EXAM: 02/18/2020 COMPARISON: 01/27/2020 TECHNIQUE: PA and lateral views submitted. HISTORY: Limb weakness FINDINGS: The lungs are clear and there is no pneumothorax, pleural effusion, or focal pneumonia. Arthropathy of the AC joints. No overt failure. Heart size normal. Hypertrophic and degenerative changes of the spine. IMPRESSION: 1. No acute process.
--- NOTE | 2020-02-18 12:35 | CT ---
EXAMINATION TYPE: CT brain wo con DATE OF EXAM: 02/18/2020 COMPARISON: HISTORY: Weakness CT DLP: 1176.4 mGycm Automated exposure control for dose reduction was used. FINDINGS: Exam severely limited with regard to the posterior fossa due to noted. Artifact. Remaining portion th e brain demonstrates mild generalized degenerative change. Low-attenuation the white matter is nonspe cific but most typical remote microvascular ischemia. There is no midline shift or mass effect. No ac samish hemorrhage within the visualized portions of the brain. Calvarium is intact. Numerous subcutaneou s nodules are seen and represent sebaceous cysts other etiologies not excluded correlate clinically. IMPRESSION: 1. LIMITED ASSESSMENT OF POSTERIOR ARE FOSSA DUE TO SEVERE ARTIFACT. NO OBVIOUS ACUTE INTRACRANIAL HE MORRHAGE OR MASS EFFECT. 2. DEGENERATIVE AND NONSPECIFIC WHITE MATTER CHANGES MOST TYPICAL REMOTE MICROVASCULAR ISCHEMIA. 3. NUMEROUS SUBCUTANEOUS SOFT TISSUE NODULES POSSIBLY RELATED TO SEBACEOUS CYST CORRELATE CLINICALLY.
[2020-02-18 12:44] LABS: Prothrombin Time 10.6 sec (9.0-12.0)
[2020-02-18 12:45] LABS: ALT 34 U/L (4-49); AST 40 U/L (17-59); African American GFR (CKD) >90 (>60 ml/min/1.73 sqM); Albumin 3.6 g/dL (3.5-5.0); Alkaline Phosphatase 37 U/L (38-126); Anion Gap 9 mmol/L; Blood Urea Nitrogen 32 mg/dL (9-20); Calcium 8.8 mg/dL (8.4-10.2); Carbon Dioxide 27 mmol/L (22-30); Chloride 99 mmol/L (98-107); Creatine Kinase 54 U/L (55-170); Glucose 262 mg/dL (74-99); Magnesium 1.8 mg/dL (1.6-2.3); Non-African American GFR(CKD) >90 (>60 ml/min/1.73 sqM); Phosphorus 2.3 mg/dL (2.5-4.5); Sodium 135 mmol/L (137-145); Total Bilirubin 1.2 mg/dL (0.2-1.3); Total Protein 5.7 g/dL (6.3-8.2)
[2020-02-18 12:46] LABS: Partial Thromboplastin Time 19.4 sec (22.0-30.0)
[2020-02-18 12:55] LABS: Potassium 2.7 mmol/L (3.5-5.1)
[2020-02-18] MEDS ORDERED: POTASSIUM CHLORIDE ER 20 MEQ TAB.ER PO STA (12:59)
[2020-02-18] MEDS ORDERED: POTASSIUM CHLORIDE 20 MEQ in WATER FOR INJECTION 1 100ML.BAG IVPB STA (12:59)
[2020-02-18 13:04] LABS: Basophils % (A) 0 %; Eosinophils % (A) 0 %; HGB 14.1 gm/dL (13.0-17.5); Lymphocytes # (A) 0.6 k/uL (1.0-4.8); Lymphocytes % (A) 5 %; MCH 31.6 pg (25.0-35.0); MCHC 35.2 g/dL (31.0-37.0); MCV 89.8 fL (80.0-100.0); Mean Platelet Volume 7.7; Monocytes # (A) 0.8 k/uL (0-1.0); Monocytes % (A) 7 %; Neutrophils % (A) 88 %; Platelet Count 147 k/uL (150-450); RBC 4.46 m/uL (4.30-5.90); RDW 13.7 % (11.5-15.5); WBC 12.5 k/uL (3.8-10.6)
[2020-02-18] MEDS ORDERED: METOPROLOL SUCCINATE (ER) 25 MG TAB.ER.24H PO STA (13:26)
[2020-02-18] MEDS ORDERED: hydrALAZINE HCL 50 MG TAB PO STA (13:26)
[2020-02-18] MEDS ORDERED: amLODIPine 5 MG TAB PO STA (13:26)
[2020-02-18] MEDS ORDERED: lisinopriL 20 MG TAB PO STA (13:26)
[2020-02-18] MEDS ORDERED: NALOXONE 0.4 MG/ML 1 ML VIAL IV PRN (13:37)
[2020-02-18] MEDS: 0.9% NACL WITH KCL 20 MEQ/L 1,000 ML IV SCH (15:30)
--- NOTE | 2020-02-18 15:33 | P.HPIM ---
History of Present Illness H&P Date: 02/18/20 Chief Complaint: Weakness of lower extremities Covering for Dr. Snowden over the weekend Mr. Quezada is a 64-year-old male with a past medical history of hypertension, diabetes mellitus, enlarged prostate, persistent hypokalemia 17 by his primary care physician Dr. Snowden for ongoing lower extremity weakness. Patient states that for the past 4-5 weeks he has been having lower extremity weakness that is progressively getting worse. Patient is hard of hearing, so the history is also supported by his was at the bedside. She mentions that the patient had pneumonia 4-5 he weeks back and since then started to have this hypokalemia and weakness. She mentions that it is more towards the end of the day. Patient denies having any difficulty in breathing. His weakness is mostly in his both lower extremities. He has a history of falls in the past and his right upper extremity is slightly weak than his left upper extremity. Patient denies having any headaches. No double vision reported. No difficulty in speech/swallowing. mentions that he had an episode of hematuria this morning. Patient denies having any orthopnea or PND. The lower extremity swelling has been worsening since being discharged from the hospital. Patient's mentions that she has been getting his potassium supplements as prescribed. In the emergency room patient, his blood pressure was 164 by ID for, heart rate of 82, saturating at 97% on room air. He had blood work done showing potassium level of 2.7., TSH of 0.017, phosphorus of 2.3. Urine analysis is showing 3+ pr otein with trace ketones and moderate blood. Negative for leukocyte esterase. He also had a computed tomography scan of the brain showing no obvious acute intra-cranial hemorrhage or mass effect along with remote microvascular ischemia. Review of Systems REVIEW OF SYSTEMS: PSYCH: No anxiety or depression NEURO: As per HPI VASCULAR: Lower extremity swelling HEMATOLOGIC: Recent history of pneumonia 5 weeks back RESPIRATORY: No cough, No SOB, No chest discomfort. INTEGUMENT: no rashes OPHTHALMOLOGIC: No blurry vision and no eye discharge : One episode of hematuria as per his CARDIAC: No chest pain , shortness of breath , paroxysmal nocturnal dyspnea MUSCULOSKELETAL : Generalized weakness GI: No abdominal pain, Nausea or vomiting. No constipation or diarrhea. Past Medical History Past Medical History: Diabetes Mellitus, Hypertension Additional Past Medical History / Comment(s): Enlarged prostate History of Any Multi-Drug Resistant Organisms: None Reported Past Surgical History: No Surgical Hx Reported Past Anesthesia/Blood Transfusion Reactions: No Reported Reaction Past Psychological History: No Psychological Hx Reported Smoking Status: Never smoker Past Alcohol Use History: None Reported Past Drug Use History: None Reported Medications and Allergies Home Medications Medication Instructions Recorded Confirmed Type Tamsulosin HCl [Flomax] 0.4 mg PO HS 01/26/20 02/18/20 History Metoprolol Tartrate [Lopressor] 25 mg PO BID 30 Days #60 tab 01/29/20 02/18/20 Rx amLODIPine [Norvasc] 5 mg PO BID 30 Days #60 tab 01/29/20 02/18/20 Rx Potassium Chloride ER [K-Dur 20] 40 meq PO DAILY #60 tab 01/30/20 02/18/20 Rx hydrALAZINE HCL [Apresoline] 100 mg PO TID #180 tab 01/30/20 02/18/20 Rx Magnesium Oxide 400 mg PO DAILY 02/18/20 02/18/20 History hydroCHLOROthiazide [Hydrodiuril] 25 mg PO DAILY 02/18/20 02/18/20 History lisinopriL [Zestril] 20 mg PO DAILY 02/18/20 02/18/20 History metFORMIN HCL [metFORMIN HCL ER] 500 mg PO BID 02/18/20 02/18/20 History traZODone HCL 50 mg PO HS PRN 02/18/20 02/18/20 History Allergies Allergy/AdvReac Type Severity Reaction Status Date / Time Penicillins Allergy Rash/Hives Verified 02/18/20 15:34 Physical Exam Vitals: Vital Signs Temp Pulse Pulse Resp BP BP Pulse Ox 02/18/20 14:22 98.2 F 67 18 151/67 97 02/18/20 14:17 177/86 02/18/20 13:46 61 18 188/92 98 02/18/20 13:27 167/102 02/18/20 11:35 98.3 F 82 18 164/84 97 Intake and Output 02/18/20 02/18/20 02/18/20 06:59 14:59 22:59 Output Total 150 Balance -150 Output: Urine 150 Other: # Voids 1 Weight 88.451 kg GENERAL EXAM GEN. APPEARANCE: alert, in no apparent distress HEAD EXAM: Atraumatic normocephalic. EYE EXAM: Pupils equal and reactive to light. No pallor. No icterus. ENT EXAM: normal exam, mucous membranes moist NECK EXAM: normal inspection. No thyromegaly. RESPIRATORY EXAM: Bilateral breath sounds are positive. Decreased at the lower lung bases. CARDIOVASCULAR EXAM: S1-S2 heard. GI/ABDOMINAL EXAM: Abdomen is soft nontender. Normal bowel sounds. No guarding or rigidity. EXTREMITIES EXAM: Bilateral pitting edema up to the knee joint NEUROLOGICAL EXAM: alert, oriented X3, strength is 2 out of 5 in his lower ext remities with pitting edema bilaterally. Upper extremity strength- right side 2 out of 5, left 3 out of 5 PSYCHIATRIC EXAM: normal affect, normal mood SKIN EXAM: No rashes Results CBC & Chem 7: 02/18/20 12:04 02/20/20 06:00 Labs: Abnormal Lab Results - Last 24 Hours (Table) 02/18/20 02/18/20 02/18/20 Range/Units 12:04 12:04 12:04 WBC 12.5 H (3.8-10.6) k/uL Plt Count 147 L (150-450) k/uL Neutrophils # 11.0 H (1.3-7.7) k/uL Lymphocytes # 0.6 L (1.0-4.8) k/uL APTT 19.4 L (22.0-30.0) sec Sodium 135 L (137-145) mmol/L Potassium 2.7 L* (3.5-5.1) mmol/L BUN 32 H (9-20) mg/dL Glucose 262 H (74-99) mg/dL Phosphorus 2.3 L (2.5-4.5) mg/dL Alkaline Phosphatase 37 L (38-126) U/L Creatine Kinase 54 L (55-170) U/L Total Protein 5.7 L (6.3-8.2) g/dL TSH 0.017 L (0.465-4.680) mIU/L Urine Protein (Negative) Urine Glucose (UA) (Negative) Urine Ketones (Negative) Urine Blood (Negative) Hyaline Casts (0-2) /lpf Urine Mucus (None) /hpf 02/18/20 Range/Units 12:11 WBC (3.8-10.6) k/uL Plt Count (150-450) k/uL Neutrophils # (1.3-7.7) k/uL Lymphocytes # (1.0-4.8) k/uL APTT (22.0-30.0) sec Sodium (137-145) mmol/L Potassium (3.5-5.1) mmol/L BUN (9-20) mg/dL Glucose (74-99) mg/dL Phosphorus (2.5-4.5) mg/dL Alkaline Phosphatase (38-126) U/L Creatine Kinase (55-170) U/L Total Protein (6.3-8.2) g/dL TSH (0.465-4.680) mIU/L Urine Protein 3+ H (Negative) Urine Glucose (UA) 4+ H (Negative) Urine Ketones Trace H (Negative) Urine Blood Moderate H (Negative) Hyaline Casts 5 H (0-2) /lpf Urine Mucus Rare H (None) /hpf Thrombosis Risk Factor Assmnt - Choose All That Apply Any of the Below Risk Factors Present?: Yes Each Factor Represents 1 point: Obesity (BMI >25), Swollen legs (current) Other Risk Factors: Yes Each Risk Factor Represents 2 Points: Age 61-74 years Other congenital or acquired thrombophilia - If yes, enter type in comment: No Thrombosis Risk Factor Assessment Total Risk Factor Score: 4 Thrombosis Risk Factor Assessment Level: Moderate Risk Assessment and Plan Assessment: ASSESSMENT Bilateral lower extremity weakness Hypokalemia Hypophosphatemia Hyperglycemia Hematuria Leukocytosis PLAN: Patient has ongoing lower extremity weakness with low potassium levels. Possible etiologies further lower extremity weaknesses are multiple like hypokalemia, hypophosphatemia,? Guillain-Rivas syndrome,? Myasthenia gravis. We will replace electrolytes. Neurology currently on board and having to telemedicine conversation now. Will consult nephrology for ongoing hypokalemia. In view of his hematuria will consult urology. Will order a 2-D echo for estimation ejection fraction of the patient has bilateral lower extremity weakness. Cardiology has been consulted. The treatment plan was discussed in detail with the patient and his at bedside. We'll continue with fall precautions. Further recommendations to follow depending on the progress of the patient.
[2020-02-18 16:57] LABS: Glucose,Whole Blood 293 mg/dL (75-99)
--- NOTE | 2020-02-18 18:18 | P.CNNES ---
History of Present Illness Consult date: 02/18/20 Reason for Consult: lower extremity weakness History of Present Illness: the patient is a 64-year-old male who is seen in neurologic co nsultation on February 18, 2020, via teleneurology. His is present at the bedside, at the time of the evaluation. The patient reports that he was in the hospital for approximately 3 weeks ago with pneumonia and hypokalemia. In addition, there were some slight weakness of extremities. The hypokalemia was corrected and the patient was discharged home. Since his discharge, the patient's weakness has been getting progressively worse. The weakness is predominantly proximal. The patient is unable to arise from the toilet. He is unable to get himself up from the bed. Once he is standing, with his knees locked, he is able to ambulate. The patient reports that he is able to roll over in the bed. He is unable to sit up from a supine position, without assistance. The patient denies muscle pain. He does report a tingly sensation in his feet. He denies loss of sensation. He denies difficulty with bowel and bladder control. Today, he has noticed mild constipation. The patient denies difficulty breathing, at rest. He is able to breathe while laying flat in the bed. The patient does report difficulty breathing when he is "moving around". The patient denies a history of similar symptoms. There is no difficulty with speech or swallowing. No headache. Past Medical History Past Medical History: Diabetes Mellitus, Hypertension Additional Past Medical History / Comment(s): Enlarged prostate History of Any Multi-Drug Resistant Organisms: None Reported Past Surgical History: No Surgical Hx Reported Past Anesthesia/Blood Transfusion Reactions: No Reported Reaction Past Psychological History: No Psychological Hx Reported Smoking Status: Never smoker Past Alcohol Use History: None Reported Past Drug Use History: None Reported Medications and Allergies Home Medications Medication Instructions Recorded Confirmed Type Tamsulosin HCl [Flomax] 0.4 mg PO HS 01/26/20 02/18/20 History Metoprolol Tartrate [Lopressor] 25 mg PO BID 30 Days #60 tab 01/29/20 02/18/20 Rx amLODIPine [Norvasc] 5 mg PO BID 30 Days #60 tab 01/29/20 02/18/20 Rx Potassium Chloride ER [K-Dur 20] 40 meq PO DAILY #60 tab 01/30/20 02/18/20 Rx hydrALAZINE HCL [Apresoline] 100 mg PO TID #180 tab 01/30/20 02/18/20 Rx Magnesium Oxide 400 mg PO DAILY 02/18/20 02/18/20 History hydroCHLOROthiazide [Hydrodiuril] 25 mg PO DAILY 02/18/20 02/18/20 History lisinopriL [Zestril] 20 mg PO DAILY 02/18/20 02/18/20 History metFORMIN HCL [metFORMIN HCL ER] 500 mg PO BID 02/18/20 02/18/20 History traZODone HCL 50 mg PO HS PRN 02/18/20 02/18/20 History Allergies Allergy/AdvReac Type Severity Reaction Status Date / Time Penicillins Allergy Rash/Hives Verified 02/18/20 15:34 Physical Examination - Vital Signs Vital Signs: Vital Signs Temp Pulse Pulse Resp BP BP Pulse Ox 02/18/20 15:00 67 18 02/18/20 14:22 98.2 F 67 18 151/67 97 02/18/20 14:17 177/86 02/18/20 13:46 61 18 188/92 98 02/18/20 13:27 167/102 02/18/20 11:35 98.3 F 82 18 164/84 97 Intake and Output 02/18/20 02/18/20 02/18/20 06:59 14:59 22:59 Output Total 150 150 Balance -150 -150 Output: Urine 150 150 Other: Voiding Method Urinal # Voids 1 1 Weight 88.451 kg Gen.: The patient is reclining in the bed. He is well-nourished, well-developed and in no acute distress. HEENT: Head is atraumatic, normocephalic. Fundus not visualized. There is no scleral icterus. Mucous membranes are moist. Neck: Patient is able to flex his head/neck without difficulty. Strength is full Extremities: There is 3+ pitting edema of the bilateral lower extremities. Neurological examination Mental status: The patient is awake, alert and oriented 3. His speech is clear. There is no dysarthria or aphasia. Cranial nerves: Pupils are equal, round and reactive to light. Visual bonner are full to confrontation. Extraocular movements are intact. There is no nystagmus. Facial sensation is intact. There is no facial asymmetry. Hearing is grossly intact. Shoulder shrug is symmetric. Tongue protrudes midline. Motor: [employer] strength is 5/5 bilaterally. Left deltoid, biceps and triceps strength 5/5. Right deltoid 0/5. Right biceps and triceps 2/5. Bilateral hip flexor strength 3/5. Bilateral ankle plantar and dorsiflexors 5/5. Sensation: Intact to light touch Coordination: Left finger to nose testing is intact. It cannot be performed on the right secondary to weakness. [id number] testing cannot be performed secondary to weakness. Deep tendon reflexes: Absent throughout Results - Laboratory Findings CBC and BMP: 02/18/20 12:04 02/18/20 12:04 Abnormal Lab Findings: Abnormal Labs 02/18/20 02/18/20 02/18/20 12:04 12:04 12:04 WBC 12.5 H Plt Count 147 L Neutrophils # 11.0 H Lymphocytes # 0.6 L APTT 19.4 L Sodium 135 L Potassium 2.7 L* BUN 32 H Glucose 262 H POC Glucose (mg/dL) Phosphorus 2.3 L Alkaline Phosphatase 37 L Creatine Kinase 54 L Total Protein 5.7 L TSH 0.017 L Urine Protein Urine Glucose (UA) Urine Ketones Urine Blood Hyaline Casts Urine Mucus 02/18/20 02/18/20 12:11 16:55 WBC Plt Count Neutrophils # Lymphocytes # APTT Sodium Potassium BUN Glucose POC Glucose (mg/dL) 293 H Phosphorus Alkaline Phosphatase Creatine Kinase Total Protein TSH Urine Protein 3+ H Urine Glucose (UA) 4+ H Urine Ketones Trace H Urine Blood Moderate H Hyaline Casts 5 H Urine Mucus Rare H Assessment and Plan Assessment: 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 Hypokalemia 3. Recent pneumonia 4. Leukocytosis Plan: 1. Agree with correction of hypokalemia 2. Will check labs for other etiologies of myopathy 3. Physical therapy consultation 4. Treatment of myopathy will depend in etiology Time with Patient: Greater than 30 (spent 45 minutes with patient via teleneurology)
[2020-02-18] MEDS ORDERED: traZODone HCL 50 MG TAB PO PRN (19:33)
[2020-02-18 19:58] LABS: Glucose,Whole Blood 340 mg/dL (75-99)
[2020-02-18] MEDS: METOPROLOL TARTRATE 25 MG TAB PO SCH (20:39)
[2020-02-18] MEDS: amLODIPine 5 MG TAB PO SCH (20:39)
[2020-02-18] MEDS: POTASSIUM CHLORIDE ER 20 MEQ TAB.ER PO SCH (20:39)
[2020-02-18] MEDS: TAMSULOSIN 0.4 MG CAP.ER.24H PO SCH (20:39)
[2020-02-18] MEDS: hydrALAZINE HCL 50 MG TAB PO SCH (22:52)
[2020-02-19 06:22] LABS: Glucose,Whole Blood 247 mg/dL (75-99)
[2020-02-19 06:57] LABS: ALT 91 U/L (4-49); AST 54 U/L (17-59); African American GFR (CKD) >90 (>60 ml/min/1.73 sqM); Albumin 2.7 g/dL (3.5-5.0); Alkaline Phosphatase 43 U/L (38-126); Anion Gap 3 mmol/L; Blood Urea Nitrogen 23 mg/dL (9-20); Calcium 7.9 mg/dL (8.4-10.2); Carbon Dioxide 30 mmol/L (22-30); Chloride 105 mmol/L (98-107); Creatine Kinase 31 U/L (55-170); Glucose 219 mg/dL (74-99); Non-African American GFR(CKD) >90 (>60 ml/min/1.73 sqM); Potassium 2.8 mmol/L (3.5-5.1); Sodium 138 mmol/L (137-145); Total Bilirubin 0.7 mg/dL (0.2-1.3); Total Protein 4.5 g/dL (6.3-8.2)
[2020-02-19] MEDS: PANTOPRAZOLE 40 MG/10 ML VIAL IV SCH (08:10)
[2020-02-19] MEDS: METOPROLOL TARTRATE 25 MG TAB PO SCH ×2 (08:11→21:29)
[2020-02-19] MEDS: ENOXAPARIN 40 MG/0.4 ML SYRINGE SQ SCH (08:11)
[2020-02-19] MEDS: hydrALAZINE HCL 50 MG TAB PO SCH ×3 (08:11→21:24)
[2020-02-19] MEDS: MAGNESIUM OXIDE 400 MG TAB PO SCH (08:11)
[2020-02-19] MEDS: POTASSIUM CHLORIDE ER 20 MEQ TAB.ER PO SCH ×2 (08:11→21:24)
[2020-02-19] MEDS: INSULIN ASPART (NovoLOG) 100 UNIT/ML VIAL SQ SCH ×4 (08:11→21:25)
[2020-02-19] MEDS: amLODIPine 5 MG TAB PO SCH ×2 (08:11→21:25)
--- NOTE | 2020-02-19 08:54 | P.CRDCN ---
History of Present Illness Consult date: 02/19/20 Chief complaint: Lower extremities weakness/swelling History of present illness: This is a pleasant 64-year-old gentleman who is known to her service from before with a past medical history significant for diabetes and hypertension presented to the hospital complaining of bilateral lower extremities weakness. The patient was seen by our service in January 2024 uncontrolled blood pressure. At that point an echocardiogram was performed and revealed normal left ventricle systolic function was evidence of hypertensive heart disease and moderate concentric left ventricular hypertrophy. At that point the patient also was discharged in stable medical condition. During that admission the patient was hypokalemic and the potassium was corrected before the patient was discharged home. This time the patient presented back to the hospital complaining of weakness in the lower extremities and also bilateral lower extremities edema. No symptoms of shortness of breath or chest pain or chest discomfort. No dizziness or lightheadedness or syncope. The potassium again was no and he is receiving potassium. The patient was seen already by the neurology service and he is in process of getting workup regarding the lower extremity weakness. On physical examination the patient does have mild bilateral lower except his edema. Otherwise he does of clear breathing sounds bilaterally and regular rate and rhythm. The EKG showed sinus rhythm with RBBB and nonspecific changes. Past Medical History Past Medical History: Diabetes Mellitus, Hypertension Additional Past Medical History / Comment(s): Enlarged prostate History of Any Multi-Drug Resistant Organisms: None Reported Past Surgical History: No Surgical Hx Reported Past Anesthesia/Blood Transfusion Reactions: No Reported Reaction Past Psychological History: No Psychological Hx Reported Smoking Status: Never smoker Past Alcohol Use History: None Reported Past Drug Use History: None Reported Medications and Allergies Home Medications Medication Instructions Recorded Confirmed Type Tamsulosin HCl [Flomax] 0.4 mg PO HS 01/26/20 02/18/20 History Metoprolol Tartrate [Lopressor] 25 mg PO BID 30 Days #60 tab 01/29/20 02/18/20 Rx amLODIPine [Norvasc] 5 mg PO BID 30 Days #60 tab 01/29/20 02/18/20 Rx Potassium Chloride ER [K-Dur 20] 40 meq PO DAILY #60 tab 01/30/20 02/18/20 Rx hydrALAZINE HCL [Apresoline] 100 mg PO TID #180 tab 01/30/20 02/18/20 Rx Magnesium Oxide 400 mg PO DAILY 02/18/20 02/18/20 History hydroCHLOROthiazide [Hydrodiuril] 25 mg PO DAILY 02/18/20 02/18/20 History lisinopriL [Zestril] 20 mg PO DAILY 02/18/20 02/18/20 History metFORMIN HCL [metFORMIN HCL ER] 500 mg PO BID 02/18/20 02/18/20 History traZODone HCL 50 mg PO HS PRN 02/18/20 02/18/20 History Allergies Allergy/AdvReac Type Severity Reaction Status Date / Time Penicillins Allergy Rash/Hives Verified 02/18/20 15:34 Physical Exam Vitals: Vital Signs Temp Pulse Pulse Resp BP BP Pulse Ox 02/19/20 08:00 98.4 F 59 L 18 165/73 95 02/19/20 04:00 98.6 F 52 L 18 126/69 96 02/19/20 00:00 98.1 F 55 L 20 138/81 96 02/18/20 21:28 98.6 F 60 18 154/79 96 02/18/20 15:00 67 18 02/18/20 14:22 98.2 F 67 18 151/67 97 02/18/20 14:17 177/86 02/18/20 13:46 61 18 188/92 98 02/18/20 13:27 167/102 02/18/20 11:35 98.3 F 82 18 164/84 97 Intake and Output 02/18/20 02/19/20 02/19/20 22:59 06:59 14:59 Output Total 650 250 Balance -650 -250 Output: Urine 650 250 Other: Voiding Method Urinal Urinal # Voids 2 - Constitutional General appearance: no acute distress - Respiratory Respiratory: bilateral: CTA - Cardiovascular Rhythm: regular Heart sounds: normal: S1, S2 Results 02/18/20 12:04 02/19/20 06:08 Cardiac Enzymes 02/18/20 02/19/20 Range/Units 12:04 06:08 AST 40 54 (17-59) U/L Coagulation 02/18/20 Range/Units 12:04 PT 10.6 (9.0-12.0) sec APTT 19.4 L (22.0-30.0) sec CBC 02/18/20 Range/Units 12:04 WBC 12.5 H (3.8-10.6) k/uL RBC 4.46 (4.30-5.90) m/uL Hgb 14.1 (13.0-17.5) gm/dL Hct 40.0 (39.0-53.0) % Plt Count 147 L (150-450) k/uL Comprehensive Metabolic Panel 02/18/20 02/19/20 Range/Units 12:04 06:08 Sodium 135 L 138 (137-145) mmol/L Potassium 2.7 L* 2.8 L (3.5-5.1) mmol/L Chloride 99 105 (98-107) mmol/L Carbon Dioxide 27 30 (22-30) mmol/L BUN 32 H 23 H (9-20) mg/dL Creatinine 0.67 0.60 L (0.66-1.25) mg/dL Glucose 262 H 219 H (74-99) mg/dL Calcium 8.8 7.9 L (8.4-10.2) mg/dL AST 40 54 (17-59) U/L ALT 34 91 H (4-49) U/L Alkaline Phosphatase 37 L 43 (38-126) U/L Total Protein 5.7 L 4.5 L (6.3-8.2) g/dL Albumin 3.6 2.7 L (3.5-5.0) g/dL Current Medications Generic Name Dose Route Start Last Admin Trade Name Freq PRN Reason Stop Dose Admin Amlodipine Besylate 5 mg 02/18/20 21:00 02/19/20 08:11 Norvasc PO 5 mg BID [facility] Administration Enoxaparin Sodium 40 mg 02/19/20 09:00 02/19/20 08:11 Lovenox SQ 40 mg DAILY [facility] Administration Hydralazine HCl 100 mg 02/18/20 22:00 02/19/20 08:11 Apresoline PO 100 mg TID [facility] Administration Potassium Chloride/Sodium Chloride 1,000 mls @ 50 mls/hr 02/18/20 14:00 02/18/20 15:30 Ns-Kcl 20 Meq/L Iv Solution IV 50 mls/hr .Q20H [facility] Administration Insulin Aspart 0 unit 02/19/20 07:30 02/19/20 08:11 Novolog SQ 4 unit ACHS CL[facility]ENCE Administration Protocol Lisinopril 30 mg 02/19/20 09:00 Zestril PO DAILY CL[facility] Magnesium Oxide 400 mg 02/19/20 09:00 02/19/20 08:11 Mag-Ox PO 400 mg DAILY CL[facility] Administration Metoprolol Tartrate 25 mg 02/18/20 21:00 02/19/20 08:11 Lopressor PO 25 mg BID [facility] Administration Naloxone HCl 0.2 mg 02/18/20 13:37 Narcan IV Q2M PRN Opioid Reversal Pantoprazole Sodium 40 mg 02/19/20 09:00 02/19/20 08:10 Protonix IV 40 mg DAILY [facility] Administration Potassium Chloride 20 meq 02/18/20 21:00 02/19/20 08:11 K-Dur 20 PO 20 meq BID CL[facility] Administration Tamsulosin HCl 0.4 mg 02/18/20 21:00 02/18/20 20:39 Flomax PO 0.4 mg HS [facility] Administration Trazodone HCl 50 mg 02/18/20 19:33 Desyrel PO HS PRN Insomnia Intake and Output 02/18/20 02/19/20 02/19/20 22:59 06:59 14:59 Output Total 650 250 Balance -650 -250 Output: Urine 650 250 Other: Voiding Method Urinal Urinal # Voids 2 02/18/20 12:04 02/19/20 06:08 Assessment and Plan Assessment: Assessment #1 hypokalemia of unknown etiology #2 lower extremities weakness could be secondary to hypokalemia #3 bilateral lower extremities edema #4 uncontrolled blood pressure #5 diabetes type 2 Plan #1 increase the dose of lisinopril to 30 mg by mouth daily #2 start the patient on Aldactone to manage the blood pressure as well as hypokalemia #3 recent echo showed normal LV function was moderate LVH and hypertensive heart disease #4 continue monitor the blood pressure as well as continue monitor the electroly milton #5 follow-up with the patient
[2020-02-19 08:58] LABS: C Reactive Protein <5.0 mg/L (<10.0)
[2020-02-19] MEDS ORDERED: lisinopriL 20 MG TAB PO SCH (09:00)
[2020-02-19] MEDS ORDERED: POTASSIUM CHLORIDE ER 20 MEQ TAB.ER PO SCH (09:00)
[2020-02-19] MEDS ORDERED: lisinopriL 10 MG TAB PO SCH (09:00)
[2020-02-19] MEDS ORDERED: lisinopriL 10 MG TAB PO ONE (09:15)
--- NOTE | 2020-02-19 09:43 | P.NPCON ---
History of Present Illness - Reason for Consult hypokalemia - History of Present Illness Reason for consultation: Hypokalemia History of present illness: Patient is a 64-year-old male seen in consultation for hypokalemia. Patient has long-standing history of high blood pressure. Patient says he was admitted here about 2 weeks ago for pneumonia. He presented to the hospital due to lower extremity as well as right upper extremity weakness. Patient states he can't even lift his legs up and also some part-time lifting his right arm up. Patient's potassium level was 2.7 on admission and is 2.8 this morning. Patient's blood pressure has been fairly controlled. His blood in the systolic 120s to 160s this admission. He does admit to swelling in his ankles. No vomiting or diarrhea. Oral intake is fair. No chest pain or shortness of breath. Denies family history of renal disease. Patient is unsure of the medications he was taking at home. He denies use of nonsteroidals. I do see hydrochlorothiazide as well as potassium supplementation his home medications. No headache. No syncopal episodes. No abdominal pain. Vital signs are stable. General: The patient appeared well nourished and normally developed. HEENT: Head exam is unremarkable. Neck is without jugular venous distension. LUNGS: Lungs are clear to auscultation and percussion. Breath sounds decreased. HEART: Rate and Rhythm are regular. First and second heart sounds normal. No murmurs, rubs or gallops. ABDOMEN: Soft, nontender. EXTREMITITES: 1+ edema in the ankles noted. Past Medical History Past Medical History: Diabetes Mellitus, Hypertension Additional Past Medical History / Comment(s): Enlarged prostate History of Any Multi-Drug Resistant Organisms: None Reported Past Surgical History: No Surgical Hx Reported Past Anesthesia/Blood Transfusion Reactions: No Reported Reaction Past Psychological History: No Psychological Hx Reported Smoking Status: Never smoker Past Alcohol Use History: None Reported Past Drug Use History: None Reported Medications and Allergies Home Medications Medication Instructions Recorded Confirmed Type Tamsulosin HCl [Flomax] 0.4 mg PO HS 01/26/20 02/18/20 History Metoprolol Tartrate [Lopressor] 25 mg PO BID 30 Days #60 tab 01/29/20 02/18/20 Rx amLODIPine [Norvasc] 5 mg PO BID 30 Days #60 tab 01/29/20 02/18/20 Rx Potassium Chloride ER [K-Dur 20] 40 meq PO DAILY #60 tab 01/30/20 02/18/20 Rx hydrALAZINE HCL [Apresoline] 100 mg PO TID #180 tab 01/30/20 02/18/20 Rx Magnesium Oxide 400 mg PO DAILY 02/18/20 02/18/20 History hydroCHLOROthiazide [Hydrodiuril] 25 mg PO DAILY 02/18/20 02/18/20 History lisinopriL [Zestril] 20 mg PO DAILY 02/18/20 02/18/20 History metFORMIN HCL [metFORMIN HCL ER] 500 mg PO BID 02/18/20 02/18/20 History traZODone HCL 50 mg PO HS PRN 02/18/20 02/18/20 History Allergies Allergy/AdvReac Type Severity Reaction Status Date / Time Penicillins Allergy Rash/Hives Verified 02/18/20 15:34 Physical Exam Vitals: Vital Signs Temp Pulse Pulse Resp BP BP Pulse Ox 02/19/20 08:00 98.4 F 59 L 18 165/73 95 02/19/20 04:00 98.6 F 52 L 18 126/69 96 02/19/20 00:00 98.1 F 55 L 20 138/81 96 02/18/20 21:28 98.6 F 60 18 154/79 96 02/18/20 15:00 67 18 02/18/20 14:22 98.2 F 67 18 151/67 97 02/18/20 14:17 177/86 02/18/20 13:46 61 18 188/92 98 02/18/20 13:27 167/102 02/18/20 11:35 98.3 F 82 18 164/84 97 Intake and Output 02/18/20 02/19/20 02/19/20 22:59 06:59 14:59 Output Total 650 250 Balance -650 -250 Output: Urine 650 250 Other: Voiding Method Urinal Urinal # Voids 2 Results - Lab Results Most recent lab results Calcium 7.9 mg/dL (8.4-10.2) L 02/19/20 06:08 Phosphorus 2.3 mg/dL (2.5-4.5) L 02/18/20 12:04 Magnesium 1.8 mg/dL (1.6-2.3) 02/18/20 12:04 02/18/20 12:04 02/19/20 06:08 Assessment and Plan Plan: Assessment: 1. Hypertension with hypokalemia. There is concern for underlying hyperaldosteronism. Blood pressure is stable on current medications. 2. 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 Magnesium normal. 3. Lower extremity weakness possibly due to hypokalemia. ? Underlying neurological illness. Plan: Check plasma renin and aldosterone levels. Check a.m. cortisol level. Replace potassium. 80 mEq today. Recheck potassium level this evening. Check plasma metanephrines. Dose of lisinopril increased and Aldactone added today. Thank you for the consultation. I will continue to follow the patient with you during his hospital stay.
[2020-02-19] MEDS ORDERED: POTASSIUM CHLORIDE ER 20 MEQ TAB.ER PO STA ×2 (09:44→18:44)
[2020-02-19] MEDS: SPIRONOLACTONE 25 MG TAB PO SCH (10:21)
[2020-02-19 12:15] LABS: Glucose,Whole Blood 151 mg/dL (75-99)
--- NOTE | 2020-02-19 12:33 | P.GSCN ---
History of Present Illness Consult date: 02/19/20 Reason for Consult: Hematuria Requesting physician: Priscilla Guerrero History of present illness: The patient is a 64-year-old white male admitted with a several week history of progressive lower extremity weakness. He takes tamsulosin for BPH, and states that with that he voids well. He denies any prior history of UTIs or urolithiasis. He denies dysuria and hematuria. Yesterday, he was voiding into a urinal and felt discomfort as the edge of the urinal against his urethral meatus. He noted 1-2 drops of blood following that. This bleeding has resolved and he states that he has not experienced hematuria at any time. Review of Systems - Constitutional Reports weakness - Cardiovascular Denies chest pain - Respiratory Denies dyspnea - Genitourinary Denies dysuria, Denies hematuria Past Medical History Past Medical History: Diabetes Mellitus, Hypertension Additional Past Medical History / Comment(s): Enlarged prostate History of Any Multi-Drug Resistant Organisms: None Reported Past Surgical History: No Surgical Hx Reported Past Anesthesia/Blood Transfusion Reactions: No Reported Reaction Past Psychological History: No Psychological Hx Reported Smoking Status: Never smoker Past Alcohol Use History: None Reported Past Drug Use History: None Reported Medications and Allergies Home Medications Medication Instructions Recorded Confirmed Type Tamsulosin HCl [Flomax] 0.4 mg PO HS 01/26/20 02/18/20 History Metoprolol Tartrate [Lopressor] 25 mg PO BID 30 Days #60 tab 01/29/20 02/18/20 Rx amLODIPine [Norvasc] 5 mg PO BID 30 Days #60 tab 01/29/20 02/18/20 Rx Potassium Chloride ER [K-Dur 20] 40 meq PO DAILY #60 tab 01/30/20 02/18/20 Rx hydrALAZINE HCL [Apresoline] 100 mg PO TID #180 tab 01/30/20 02/18/20 Rx Magnesium Oxide 400 mg PO DAILY 02/18/20 02/18/20 History hydroCHLOROthiazide [Hydrodiuril] 25 mg PO DAILY 02/18/20 02/18/20 History lisinopriL [Zestril] 20 mg PO DAILY 02/18/20 02/18/20 History metFORMIN HCL [metFORMIN HCL ER] 500 mg PO BID 02/18/20 02/18/20 History traZODone HCL 50 mg PO HS PRN 02/18/20 02/18/20 History Allergies Allergy/AdvReac Type Severity Reaction Status Date / Time Penicillins Allergy Rash/Hives Verified 02/18/20 15:34 Surgical - Exam Vital Signs Temp Pulse Resp BP Pulse Ox 98.3 F 82 18 164/84 97 02/18/20 11:35 02/18/20 11:35 02/18/20 11:35 02/18/20 11:35 02/18/20 11:35 - General well developed, well nourished, no distress - Respiratory normal respiratory effort - Abdomen Abdomen: soft, non tender, no guarding, no rigid, no rebound - Genitourinary other (The penis is uncircumcised. The foreskin appears normal. Slight inflammation is noted surrounding the urethral meatus. The testes are normal.) - Rectum Rectum: normal sphincter tone, no masses, other (The prostate is mildly enlarged and smooth.) - Psychiatric oriented to time, oriented to person, oriented to place, speech is normal, memory intact Results - Labs 02/18/20 12:04 02/19/20 06:08 Abnormal Lab Results - Last 24 Hours (Table) 02/18/20 02/18/20 02/18/20 Range/Units 12:04 12:04 12:04 WBC 12.5 H (3.8-10.6) k/uL Plt Count 147 L (150-450) k/uL Neutrophils # 11.0 H (1.3-7.7) k/uL Lymphocytes # 0.6 L (1.0-4.8) k/uL APTT 19.4 L (22.0-30.0) sec Sodium 135 L (137-145) mmol/L Potassium 2.7 L* (3.5-5.1) mmol/L BUN 32 H (9-20) mg/dL Glucose 262 H (74-99) mg/dL POC Glucose (mg/dL) (75-99) mg/dL Phosphorus 2.3 L (2.5-4.5) mg/dL Alkaline Phosphatase 37 L (38-126) U/L Creatine Kinase 54 L (55-170) U/L Total Protein 5.7 L (6.3-8.2) g/dL TSH 0.017 L (0.465-4.680) mIU/L Urine Protein (Negative) Urine Glucose (UA) (Negative) Urine Ketones (Negative) Urine Blood (Negative) Hyaline Casts (0-2) /lpf Urine Mucus (None) /hpf 02/18/20 02/18/20 02/18/20 Range/Units 12:11 16:55 19:57 WBC (3.8-10.6) k/uL Plt Count (150-450) k/uL Neutrophils # (1.3-7.7) k/uL Lymphocytes # (1.0-4.8) k/uL APTT (22.0-30.0) sec Sodium (137-145) mmol/L Potassium (3.5-5.1) mmol/L BUN (9-20) mg/dL Glucose (74-99) mg/dL POC Glucose (mg/dL) 293 H 340 H (75-99) mg/dL Phosphorus (2.5-4.5) mg/dL Alkaline Phosphatase (38-126) U/L Creatine Kinase (55-170) U/L Total Protein (6.3-8.2) g/dL TSH (0.465-4.680) mIU/L Urine Protein 3+ H (Negative) Urine Glucose (UA) 4+ H (Negative) Urine Ketones Trace H (Negative) Urine Blood Moderate H (Negative) Hyaline Casts 5 H (0-2) /lpf Urine Mucus Rare H (None) /hpf 02/19/20 Range/Units 06:20 WBC (3.8-10.6) k/uL Plt Count (150-450) k/uL Neutrophils # (1.3-7.7) k/uL Lymphocytes # (1.0-4.8) k/uL APTT (22.0-30.0) sec Sodium (137-145) mmol/L Potassium (3.5-5.1) mmol/L BUN (9-20) mg/dL Glucose (74-99) mg/dL POC Glucose (mg/dL) 247 H (75-99) mg/dL Phosphorus (2.5-4.5) mg/dL Alkaline Phosphatase (38-126) U/L Creatine Kinase (55-170) U/L Total Protein (6.3-8.2) g/dL TSH (0.465-4.680) mIU/L Urine Protein (Negative) Urine Glucose (UA) (Negative) Urine Ketones (Negative) Urine Blood (Negative) Hyaline Casts (0-2) /lpf Urine Mucus (None) /hpf Diabetes panel 02/18/20 Range/Units 12:04 Sodium 135 L (137-145) mmol/L Potassium 2.7 L* (3.5-5.1) mmol/L Chloride 99 (98-107) mmol/L Carbon Dioxide 27 (22-30) mmol/L BUN 32 H (9-20) mg/dL Creatinine 0.67 (0.66-1.25) mg/dL Glucose 262 H (74-99) mg/dL Calcium 8.8 (8.4-10.2) mg/dL AST 40 (17-59) U/L ALT 34 (4-49) U/L Alkaline Phosphatase 37 L (38-126) U/L Total Protein 5.7 L (6.3-8.2) g/dL Albumin 3.6 (3.5-5.0) g/dL Thyroid panel 02/18/20 Range/Units 12:04 TSH 0.017 L (0.465-4.680) mIU/L Calcium panel 02/18/20 Range/Units 12:04 Calcium 8.8 (8.4-10.2) mg/dL Phosphorus 2.3 L (2.5-4.5) mg/dL Albumin 3.6 (3.5-5.0) g/dL Pituitary panel 02/18/20 Range/Units 12:04 Sodium 135 L (137-145) mmol/L Potassium 2.7 L* (3.5-5.1) mmol/L Chloride 99 (98-107) mmol/L Carbon Dioxide 27 (22-30) mmol/L BUN 32 H (9-20) mg/dL Creatinine 0.67 (0.66-1.25) mg/dL Glucose 262 H (74-99) mg/dL Calcium 8.8 (8.4-10.2) mg/dL TSH 0.017 L (0.465-4.680) mIU/L Adrenal panel 02/18/20 Range/Units 12:04 Sodium 135 L (137-145) mmol/L Potassium 2.7 L* (3.5-5.1) mmol/L Chloride 99 (98-107) mmol/L Carbon Dioxide 27 (22-30) mmol/L BUN 32 H (9-20) mg/dL Creatinine 0.67 (0.66-1.25) mg/dL Glucose 262 H (74-99) mg/dL Calcium 8.8 (8.4-10.2) mg/dL Total Bilirubin 1.2 (0.2-1.3) mg/dL AST 40 (17-59) U/L ALT 34 (4-49) U/L Alkaline Phosphatase 37 L (38-126) U/L Total Protein 5.7 L (6.3-8.2) g/dL Albumin 3.6 (3.5-5.0) g/dL Assessment and Plan (1) Gross hematuria Current Visit: Yes Status: Acute Code(s): R31.0 - GROSS HEMATURIA SNOMED Code(s): 819529343 Plan: The patient's urologic history is significant only for BPH, for which he takes tamsulosin. The only time he has ever noted any urinary bleeding was from the urethral meatus yesterday after the meatus came into contact with the sharp edge of the urinal. This minor injury is self-limited and requires no further evaluation or treatment. Urinalysis yesterday showed 2 rbc's/hpf, and it is unclear whether this specimen was obtained before or after the injury. In any case, this is not a degree of hematuria that would prompt a formal evaluation, though he should be monitored for microhematuria in the future. Please notify me if I can be of any further assistance.
[2020-02-19] MEDS: 0.9% NACL WITH KCL 20 MEQ/L 1,000 ML IV SCH (13:02)
--- NOTE | 2020-02-19 14:43 | US ---
EXAMINATION TYPE: US venous doppler duplex LE BI DATE OF EXAM: 02/19/2020 7:45 AM COMPARISON: NONE CLINICAL HISTORY: Bilateral LE swelling . SIDE PERFORMED: Bilateral TECHNIQUE: The lower extremity deep venous system is examined utilizing real time linear array sonog keith with graded compression, doppler sonography and color-flow sonography. VESSELS IMAGED: External Iliac Vein (EIV) Common Femoral Vein Deep Femoral Vein Greater Saphenous Vein * Femoral Vein Popliteal Vein Small Saphenous Vein * Proximal Calf Veins (* superficial vessels) Right Leg: Negative for DVT. There is normal flow, compressibility, vascular waveforms. Left Leg: Negative for DVT. There is normal flow, compressibility, vascular waveforms. IMPRESSION: No DVT of the bilateral lower extremities.
--- NOTE | 2020-02-19 15:51 | P.PN ---
Subjective Progress Note Date: 02/19/20 Principal diagnosis: Persistent Hypokalemia Mr. Quezada is a 64-year-old male with a past medical history of hypertension, diabetes mellitus, enlarged prostate, persistent hypokalemia 17 by his primary care physician Dr. Snowden for ongoing lower extremity weakness. Patient states that for the past 4-5 weeks he has been having lower extremity weakness that is progressively getting worse. Patient is hard of hearing, so the history is also supported by his was at the bedside. She mentions that the patient had pneumonia 4-5 he weeks back and since then started to have this hypokalemia and weakness. She mentions that it is more towards the end of the day. Patient de nies having any difficulty in breathing. His weakness is mostly in his both lower extremities. He has a history of falls in the past and his right upper extremity is slightly weak than his left upper extremity. Patient denies having any headaches. No double vision reported. No difficulty in speech/swallowing. mentions that he had an episode of hematuria this morning. Patient denies having any orthopnea or PND. The lower extremity swelling has been worsening since being discharged from the hospital. Patient's mentions that she has been getting his potassium supplements as prescribed. In the emergency room patient, his blood pressure was 164 by ID for, heart rate of 82, saturating at 97% on room air. He had blood work done showing potassium level of 2.7., TSH of 0.017, phosphorus of 2.3. Urine analysis is showing 3+ protein with trace ketones and moderate blood. Negative for leukocyte esterase. He also had a computed tomography scan of the brain showing no obvious acute intra-cranial hemorrhage or mass effect along with remote microvascular ischemia. On 02/19/2020- patient is lying comfortably in the bed. He states that his weakness is slightly better compared to yesterday. Patient has been getting potassium replacements. He still has significant weakness in his lower extremities as compared to his upper extremities. Patient denies having any headaches or double vision. Denies having any difficulty in swallowing or choking sensation. Patient denies having any difficulty in breathing. He states he has small bouts of cough when he feels that he might be choking. Denies having any productive cough. No abdominal pain nausea vomiting or diarrhea. No dysuria or hematuria. Patient's labs from this morning showed potassium of 2.8, blood sugars have been running a little on the higher side. Active Medications Amlodipine Besylate (Norvasc) 5 mg PO BID [facility] Last Admin: 02/19/20 08:11 Dose: 5 mg Documented by: Enoxaparin Sodium (Lovenox) 40 mg SQ DAILY [facility] Last Admin: 02/19/20 08:11 Dose: 40 mg Documented by: Hydralazine HCl (Apresoline) 100 mg PO TID [facility] Last Admin: 02/19/20 15:39 Dose: 100 mg Documented by: Potassium Chloride/Sodium Chloride (Ns-Kcl 20 Meq/L Iv Solution) 1,000 mls @ 50 mls/hr IV .Q20H [facility] Last Admin: 02/19/20 13:02 Dose: 50 mls/hr Documented by: Insulin Aspart (Novolog) 0 unit SQ ACHS [facility]; Protocol Last Admin: 02/19/20 13:02 Dose: 1 unit Documented by: Lisinopril (Zestril) 30 mg PO DAILY [facility] Magnesium Oxide (Mag-Ox) 400 mg PO DAILY [facility] Last Admin: 02/19/20 08:11 Dose: 400 mg Documented by: Metoprolol Tartrate (Lopressor) 25 mg PO BID [facility] Last Admin: 02/19/20 08:11 Dose: 25 mg Documented by: Naloxone HCl (Narcan) 0.2 mg IV Q2M PRN PRN Reason: Opioid Reversal Pantoprazole Sodium (Protonix) 40 mg IV DAILY [facility] Last Admin: 02/19/20 08:10 Dose: 40 mg Documented by: Potassium Chloride (K-Dur 20) 20 meq PO BID [facility] Last Admin: 02/19/20 08:11 Dose: 20 meq Documented by: Spironolactone (Aldactone) 25 mg PO DAILY [facility] Last Admin: 02/19/20 10:21 Dose: 25 mg Documented by: Tamsulosin HCl (Flomax) 0.4 mg PO HS [facility] Last Admin: 02/18/20 20:39 Dose: 0.4 mg Documented by: Trazodone HCl (Desyrel) 50 mg PO HS PRN PRN Reason: Insomnia Objective - Vital Signs Vital signs: Vital Signs Temp 98.6 F 02/19/20 15:11 Pulse 78 02/19/20 15:11 Resp 16 02/19/20 15:11 BP 177/102 02/19/20 15:11 Pulse Ox 96 02/19/20 15:11 Intake & Output 02/18/20 02/19/20 02/19/20 18:59 06:59 18:59 Intake Total 720 Output Total 300 750 150 Balance -300 -750 570 Weight 88.451 kg Intake: Oral 720 Output: Urine 300 750 150 Other: Voiding Method Urinal Urinal Urinal # Voids 1 2 - Exam GEN. APPEARANCE: alert, in no apparent distress HEAD EXAM: Atraumatic normocephalic. EYE EXAM: Pupils equal and reactive to light. No pallor. No icterus. ENT EXAM: normal exam, mucous membranes moist NECK EXAM: normal inspection. No thyromegaly. RESPIRATORY EXAM: Bilateral breath sounds are positive. Decreased at the lower lung bases. CARDIOVASCULAR EXAM: S1-S2 heard. GI/ABDOMINAL EXAM: Abdomen is soft nontender. Normal bowel sounds. No guarding or rigidity. EXTREMITIES EXAM: Bilateral pitting edema up to the knee joint NEUROLOGICAL EXAM: alert, oriented X3, strength is 2 out of 5 in his lower extremities with pitting edema bilaterally. Upper extremity strength- right side 2 out of 5, left 3 out of 5 PSYCHIATRIC EXAM: normal affect, normal mood SKIN EXAM: No rashes - Labs CBC & Chem 7: 02/18/20 12:04 02/20/20 06:00 Labs: Abnormal Lab Results - Last 24 Hours (Table) 02/18/20 02/18/20 02/19/20 Range/Units 16:55 19:57 06:08 Potassium 2.8 L (3.5-5.1) mmol/L BUN 23 H (9-20) mg/dL Creatinine 0.60 L (0.66-1.25) mg/dL Glucose 219 H (74-99) mg/dL POC Glucose (mg/dL) 293 H 340 H (75-99) mg/dL Calcium 7.9 L (8.4-10.2) mg/dL ALT 91 H (4-49) U/L Creatine Kinase 31 L (55-170) U/L Total Protein 4.5 L (6.3-8.2) g/dL Albumin 2.7 L (3.5-5.0) g/dL 02/19/20 02/19/20 Range/Units 06:20 12:14 Potassium (3.5-5.1) mmol/L BUN (9-20) mg/dL Creatinine (0.66-1.25) mg/dL Glucose (74-99) mg/dL POC Glucose (mg/dL) 247 H 151 H (75-99) mg/dL Calcium (8.4-10.2) mg/dL ALT (4-49) U/L Creatine Kinase (55-170) U/L Total Protein (6.3-8.2) g/dL Albumin (3.5-5.0) g/dL Assessment and Plan Assessment: ASSESSMENT Bilateral lower extremity weakness Hypokalemia Hypophosphatemia Hyperglycemia Hematuria Leukocytosis PLAN: Patient has ongoing lower extremity weakness with low potassium levels. Possible etiologies further lower extremity weaknesses are multiple like hypokalemia, hypophosphatemia,? Guillain-Rivas syndrome,? Myasthenia gravis. We will replace electrolytes. Neurology currently on board and evaluated the patient via telemedicine- ordered DARLENE , CRP, CPK, HIV, Lyme, RF factor, Acetylcholine esterase binding antibodies. Nephrology, Dr. Blake has evaluated the patient and ordered aldosterone, metanephrine, renin levels. As per urology no acute urological intervention needed, could be traumatic hematuria. Venous Doppler of bilateral lower extremity is negative for DVT. Cardiology Dr. Piña evaluated the patient and following him for blood pressure management. The treatment plan was discussed in detail with the patient at bedside. We'll continue with fall precautions. Dr. Snowden to follow him from tomorrow.
--- NOTE | 2020-02-19 15:58 | P.PN ---
Subjective Progress Note Date: 02/19/20 The patient is seen in neurologic follow-up on February 19, 2020, via teleneurology. The patient is seated on the edge of the bed. He reports still being unable to lift his legs. He denies muscle pain. Objective - Vital Signs Vital signs: Vital Signs Temp 98.6 F 02/19/20 15:11 Pulse 78 02/19/20 15:11 Resp 16 02/19/20 15:11 BP 136/73 02/19/20 15:46 Pulse Ox 96 02/19/20 15:11 Intake & Output 02/18/20 02/19/20 02/19/20 18:59 06:59 18:59 Intake Total 960 Output Total 300 750 150 Balance -300 -750 810 Weight 88.451 kg Intake: Oral 960 Output: Urine 300 750 150 Other: Voiding Method Urinal Urinal Urinal # Voids 1 2 - Exam Gen.: The patient is seated on the edge of the bed. He is in no acute distress. Cranial nerves: 2-12 intact as tested Motor: Right quadriceps strength 3/5. Left quadriceps strength 5/5. Bilateral hamstring strength 5/5. Bilateral ankle plantar and dorsiflexors 5/5. Bilateral hip abductors and abductors 5/5. Right triceps 2/5. Left triceps 3/5. Right deltoid 0/5. Bilateral supervisor dog license officer strength 5/5. Bilateral biceps strength 3/5. Sensation: Grossly intact to light touch throughout. Deep tendon reflexes: 2+/4+ at the bilateral biceps. Right patellar reflex is absent. Left patellar reflex 2+/4+. Achilles reflexes are absent bilaterally. Plantar responses are flexor bilaterally. - Labs CBC & Chem 7: 02/18/20 12:04 02/19/20 06:08 Labs: Abnormal Lab Results - Last 24 Hours (Table) 02/18/20 02/18/20 02/19/20 Range/Units 16:55 19:57 06:08 Potassium 2.8 L (3.5-5.1) mmol/L BUN 23 H (9-20) mg/dL Creatinine 0.60 L (0.66-1.25) mg/dL Glucose 219 H (74-99) mg/dL POC Glucose (mg/dL) 293 H 340 H (75-99) mg/dL Calcium 7.9 L (8.4-10.2) mg/dL ALT 91 H (4-49) U/L Creatine Kinase 31 L (55-170) U/L Total Protein 4.5 L (6.3-8.2) g/dL Albumin 2.7 L (3.5-5.0) g/dL 02/19/20 02/19/20 Range/Units 06:20 12:14 Potassium (3.5-5.1) mmol/L BUN (9-20) mg/dL Creatinine (0.66-1.25) mg/dL Glucose (74-99) mg/dL POC Glucose (mg/dL) 247 H 151 H (75-99) mg/dL Calcium (8.4-10.2) mg/dL ALT (4-49) U/L Creatine Kinase (55-170) U/L Total Protein (6.3-8.2) g/dL Albumin (3.5-5.0) g/dL Assessment and Plan Assessment: 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 Hypokalemia 3. Recent pneumonia 4. Leukocytosis As of today, 02/29/2020: CPK is 31, TSH is low at 0.017. Sodium is 138. Potassium remains low at 2.8. Plan: 1. Agree with correction of hypokalemia 2. Will check labs for other etiologies of myopathy 3. Physical therapy consultation 4. Treatment of myopathy will depend in etiology Time with Patient: Less than 30 (spent 25 minutes with patient via teleneurology)
[2020-02-19 17:05] LABS: Glucose,Whole Blood 164 mg/dL (75-99)
[2020-02-19 20:34] LABS: Glucose,Whole Blood 218 mg/dL (75-99)
[2020-02-19] MEDS: TAMSULOSIN 0.4 MG CAP.ER.24H PO SCH (21:24)
[2020-02-20 01:54] LABS: African American GFR (CKD) >90 (>60 ml/min/1.73 sqM); Anion Gap 2 mmol/L; Blood Urea Nitrogen 19 mg/dL (9-20); Carbon Dioxide 26 mmol/L (22-30); Chloride 109 mmol/L (98-107); Glucose 132 mg/dL (74-99); Non-African American GFR(CKD) >90 (>60 ml/min/1.73 sqM); Potassium 3.6 mmol/L (3.5-5.1); Sodium 137 mmol/L (137-145)
[2020-02-20] MEDS: 0.9% NACL WITH KCL 20 MEQ/L 1,000 ML IV SCH (06:20)
[2020-02-20 06:30] LABS: Glucose,Whole Blood 141 mg/dL (75-99)
[2020-02-20 06:52] LABS: African American GFR (CKD) >90 (>60 ml/min/1.73 sqM); Anion Gap 1 mmol/L; Blood Urea Nitrogen 18 mg/dL (9-20); Calcium 7.8 mg/dL (8.4-10.2); Carbon Dioxide 26 mmol/L (22-30); Chloride 110 mmol/L (98-107); Glucose 134 mg/dL (74-99); Magnesium 1.7 mg/dL (1.6-2.3); Non-African American GFR(CKD) >90 (>60 ml/min/1.73 sqM); Potassium 3.7 mmol/L (3.5-5.1); Sodium 137 mmol/L (137-145)
[2020-02-20] MEDS: INSULIN ASPART (NovoLOG) 100 UNIT/ML VIAL SQ SCH ×4 (06:53→21:14)
[2020-02-20] MEDS: ENOXAPARIN 40 MG/0.4 ML SYRINGE SQ SCH (08:09)
[2020-02-20] MEDS: METOPROLOL TARTRATE 25 MG TAB PO SCH (08:10)
[2020-02-20] MEDS: hydrALAZINE HCL 50 MG TAB PO SCH ×3 (08:10→21:14)
[2020-02-20] MEDS: amLODIPine 5 MG TAB PO SCH (08:11)
[2020-02-20] MEDS: MAGNESIUM OXIDE 400 MG TAB PO SCH (08:11)
[2020-02-20] MEDS: PANTOPRAZOLE 40 MG/10 ML VIAL IV SCH (08:11)
[2020-02-20] MEDS: POTASSIUM CHLORIDE ER 20 MEQ TAB.ER PO SCH ×2 (08:11→19:59)
[2020-02-20] MEDS: SPIRONOLACTONE 25 MG TAB PO SCH (08:11)
[2020-02-20] MEDS ORDERED: lisinopriL 10 MG TAB PO SCH (09:00)
--- NOTE | 2020-02-20 11:00 | ECHOF ---
Referral Reason:lower extremities edema MEASUREMENTS -------- HEIGHT: 162.6 cm WEIGHT: 81.6 kg BP: FINDINGS -------- Sinus rhythm. Echo done 01/27/20: Limited Study for extremities edema. Overall left ventricular systolic function is normal with, an EF between 55 - 60 %. There is no pericardial effusion. CONCLUSIONS -------- 1. Echo done 01/27/20: Limited Study for extremities edema. 2. Overall left ventricular systolic function is normal with, an EF between 55 - 60 %. LOG SKIDDER: Sparkle Cornelius RDCS
--- NOTE | 2020-02-20 11:14 | P.PN ---
Subjective patient is seen in follow-up for hypertension and hypokalemia. Potassium level improved. Blood pressure also improved but still on the higher side. Continues to have weakness in his extremities. Vital signs are stable. General: The patient appeared well nourished and normally developed. HEENT: Head exam is unremarkable. Neck is without jugular venous distension. LUNGS: Lungs are clear to auscultation and percussion. Breath sounds decreased. HEART: Rate and Rhythm are regular. ABDOMEN: soft, nontender. EXTREMITITES: No edema. Objective - Vital Signs Vital signs: Vital Signs Temp 98.5 F 02/20/20 04:00 Pulse 88 02/20/20 08:00 Resp 18 02/20/20 08:00 BP 153/70 02/20/20 08:00 Pulse Ox 95 02/20/20 04:00 Intake & Output 02/19/20 02/20/20 02/20/20 18:59 06:59 18:59 Intake Total 960 850 240 Output Total 650 850 Balance 310 0 240 Intake: Intake, IV Titration 400 Amount 0.9% NaCl with KCl 20 Meq 400 /l 1,000 ml @ 50 mls/hr IV .Q20H [facility] Rx#: [id number] Oral 960 450 240 Output: Urine 650 850 Other: Voiding Method Urinal Urinal # Voids 1 - Labs CBC & Chem 7: 02/18/20 12:04 02/20/20 06:00 Labs: Abnormal Lab Results - Last 24 Hours (Table) 02/19/20 02/19/20 02/19/20 Range/Units 12:14 16:53 17:03 Potassium 3.3 L (3.5-5.1) mmol/L Chloride (98-107) mmol/L Creatinine (0.66-1.25) mg/dL Glucose (74-99) mg/dL POC Glucose (mg/dL) 151 H 164 H (75-99) mg/dL Calcium (8.4-10.2) mg/dL 02/19/20 02/20/20 02/20/20 Range/Units 20:32 01:40 06:00 Potassium (3.5-5.1) mmol/L Chloride 109 H 110 H (98-107) mmol/L Creatinine 0.60 L 0.57 L (0.66-1.25) mg/dL Glucose 132 H 134 H (74-99) mg/dL POC Glucose (mg/dL) 218 H (75-99) mg/dL Calcium 8.0 L 7.8 L (8.4-10.2) mg/dL 02/20/20 Range/Units 06:28 Potassium (3.5-5.1) mmol/L Chloride (98-107) mmol/L Creatinine (0.66-1.25) mg/dL Glucose (74-99) mg/dL POC Glucose (mg/dL) 141 H (75-99) mg/dL Calcium (8.4-10.2) mg/dL Assessment and Plan Plan: Assessment: 1. Hypertension with hypokalemia. There is concern for underlying hyperaldosteronism. morning cortisol level normal. 2. 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 Magnesium normal. better. 3. Lower extremity weakness possibly due to hypokalemia. ? Underlying neurological illness. Plan: follow-up plasma renin and aldosterone levels. follow-up plasma metanephrines. dose of lisinopril increased today. if blood pressure remains persistently above systolic 140, will increase amlodipine to 10 mg daily.
[2020-02-20 12:02] LABS: Rheumatoid Factor, Qnt 8 IU/mL (0-15)
[2020-02-20 12:06] LABS: Glucose,Whole Blood 272 mg/dL (75-99)
--- NOTE | 2020-02-20 12:24 | PN ---
PROGRESS NOTE Mr. Quezada is a 64-year-old male with known history of hypertension who presented with symptoms of progressive fatigue with lack of energy. He was hypertensive and hypokalemic on presentation. He has history of diabetes. He continues to be feeling fatigued with some lack of energy. He has a cough that appears to be an BIJAN inhibitor cough. He has continuous peripheral edema. He has no dizziness or palpitation. He underwent an echocardiogram today that showed normal systolic function. He has no PND, no orthopnea. He continued to be in sinus mechanism. He continues to be on amlodipine 5 mg twice a day, hydralazine 100 mg 3 times a day, lisinopril 30 mg daily, metoprolol tartrate 25 mg twice a day, spironolactone 25 mg daily. PHYSICAL EXAMINATION: Blood pressure 153/70 with a heart rate in the 80s. LUNGS: Clear. HEART: Regular rate and rhythm S1, S2. No S3 with a systolic murmur, no diastolic murmur, no rub. ABDOMEN: Soft, nontender positive bowel sounds. EXTREMITIES: +1 edema. LAB DATA: Revealed a potassium 3.7, BUN and creatinine of 18 and 0.57. Magnesium of 1.7. IMPRESSION: 1. Hypokalemia, improved. 2. Symptoms of fatigue with lack of energy, could be related to hypokalemia. 3. Hypertension. 4. Cough, appears to be BIJAN inhibitor cough. 5. Peripheral edema, could be related to amlodipine and apparently the patient had similar issues at home. RECOMMENDATION: I will stop the lisinopril, switch him to losartan. I will switch him to a carvedilol for better blood pressure control. Will decrease the amlodipine because of the peripheral edema and depending on his progress, further recommendation will be made. MMODL / IJN: [id number] /
[2020-02-20] MEDS: LOSARTAN 50 MG TAB PO SCH (12:37)
--- NOTE | 2020-02-20 15:37 | P.CONS ---
History of Present Illness - Chief Complaint Medical debility - History of Present Illness I had the opportunity see patient for inpatient rehab consultation with regard to medical debility. He was admitted to [facility] February 17 with lower extremity weakness of 4-5 weeks duration, hypokalemia. Seen by neurology, Dr. Thomas Alvarado. Seen by cardiology for LVH. Seen by Dr. Blake for hypokalemia. Seen by Dr. Stallings for BPH and difficulty passing urine. Venous Doppler negative for DVT right or left. Head CT with degenerative change and multiple subcutaneous nodules consistent with cysts. Chest x-ray negative. PT reports maximal assistance for bed mobility and moderate assistance to sit. OT reports moderate assistance for upper dressing to person total assistance for lower dressing and toileting and maximal to total assistance to person for bathing. Two-person assistance functional mobility and transfer. Previous functional history as elicited patient: 64 showed right-handed white male who is lives and 2 floor home with . Patient retired. Reports that they share the cooking, laundry, driving. He is independent with standing shower and gait without device. PMD Dr. Snowden. Denies tobacco or alcohol. Family history father with diabetes. Review of Systems Review of systems: ENT: Denies sneezes or discharge. Eyes: Denies discharge or photophobia. Cardiac: Denies chest pain or palpitation. Pulmonary: Denies cough or shortness of breath. Gastrointestinal: Denies nausea, emesis, constipation, diarrhea. Genitourinary: Some difficulty completely voiding urine. Musculoskeletal: Denies muscle or bone aches. Neurologic: At least mild generalized weakness. Endocrine: Denies shakes or sweats. Oncology: Denies cancers. Dermatologic: Denies rash, itching, pruritus. ALLERGY/immunology: Denies sneezes, rashes. Past Medical History Past Medical History: Diabetes Mellitus, Hypertension Additional Past Medical History / Comment(s): Enlarged prostate History of Any Multi-Drug Resistant Organisms: None Reported Past Surgical History: No Surgical Hx Reported Past Anesthesia/Blood Transfusion Reactions: No Reported Reaction Past Psychological History: No Psychological Hx Reported Smoking Status: Never smoker Past Alcohol Use History: None Reported Past Drug Use History: None Reported Medications and Allergies Home Medications Medication Instructions Recorded Confirmed Type Tamsulosin HCl [Flomax] 0.4 mg PO HS 01/26/20 02/18/20 History Metoprolol Tartrate [Lopressor] 25 mg PO BID 30 Days #60 tab 01/29/20 02/18/20 Rx amLODIPine [Norvasc] 5 mg PO BID 30 Days #60 tab 01/29/20 02/18/20 Rx Potassium Chloride ER [K-Dur 20] 40 meq PO DAILY #60 tab 01/30/20 02/18/20 Rx hydrALAZINE HCL [Apresoline] 100 mg PO TID #180 tab 01/30/20 02/18/20 Rx Magnesium Oxide 400 mg PO DAILY 02/18/20 02/18/20 History hydroCHLOROthiazide [Hydrodiuril] 25 mg PO DAILY 02/18/20 02/18/20 History lisinopriL [Zestril] 20 mg PO DAILY 02/18/20 02/18/20 History metFORMIN HCL [metFORMIN HCL ER] 500 mg PO BID 02/18/20 02/18/20 History traZODone HCL 50 mg PO HS PRN 02/18/20 02/18/20 History Allergies Allergy/AdvReac Type Severity Reaction Status Date / Time Penicillins Allergy Rash/Hives Verified 02/18/20 15:34 Physical Exam Vitals: Vital Signs Temp Pulse Resp BP Pulse Ox 02/20/20 12:00 75 139/75 96 02/20/20 08:00 88 18 153/70 02/20/20 04:00 98.5 F 70 16 163/93 95 02/19/20 23:42 98.4 F 69 16 141/80 96 02/19/20 20:00 98.2 F 71 16 178/80 95 02/19/20 15:46 136/73 Intake and Output 02/20/20 02/20/20 02/20/20 06:59 14:59 22:59 Intake Total 850 480 Output Total 700 200 Balance 150 280 Intake: Intake, IV Titration 400 Amount 0.9% NaCl with KCl 20 Meq 400 /l 1,000 ml @ 50 mls/hr IV .Q20H [facility] Rx#: [id number] Oral 450 480 Output: Urine 700 200 Other: Voiding Method Urinal # Voids 1 1 Skin: Atrophic, intact. General: Medium build and comfortable appearance. Head: Normocephalic, atraumatic. Eyes: Symmetric. Pupils equal round. Ears: Symmetric. Hearing within normal limits. Mouth: Clear. Neck: Supple. Carotid without bruit. Cardiac: Regular rate and rhythm. Lungs: Clear anteriorly and posteriorly. Abdomen: Soft active nontender. Extremities: Normal tone. Neurological: Mental status: Alert, cooperative, pleasant. Cranial nerves: Symmetric facial tone and trapezius. Motor: Demonstrated active movement arms at least but declined to elevate them or move legs. Sensation: Intact throughout. DTRs: Symmetric and equal throughout. Mobility: Patient resistant to exam as I interrupted micturition. Results CBC & Chem 7: 02/18/20 12:04 02/20/20 06:00 Labs: Abnormal Lab Results - Last 24 Hours (Table) 02/19/20 02/19/20 02/19/20 Range/Units 16:53 17:03 20:32 Potassium 3.3 L (3.5-5.1) mmol/L Chloride (98-107) mmol/L Creatinine (0.66-1.25) mg/dL Glucose (74-99) mg/dL POC Glucose (mg/dL) 164 H 218 H (75-99) mg/dL Calcium (8.4-10.2) mg/dL 02/20/20 02/20/20 02/20/20 Range/Units 01:40 06:00 06:28 Potassium (3.5-5.1) mmol/L Chloride 109 H 110 H (98-107) mmol/L Creatinine 0.60 L 0.57 L (0.66-1.25) mg/dL Glucose 132 H 134 H (74-99) mg/dL POC Glucose (mg/dL) 141 H (75-99) mg/dL Calcium 8.0 L 7.8 L (8.4-10.2) mg/dL 02/20/20 Range/Units 12:03 Potassium (3.5-5.1) mmol/L Chloride (98-107) mmol/L Creatinine (0.66-1.25) mg/dL Glucose (74-99) mg/dL POC Glucose (mg/dL) 272 H (75-99) mg/dL Calcium (8.4-10.2) mg/dL Assessment and Plan (1) Hypokalemia Current Visit: Yes Status: Acute Code(s): E87.6 - HYPOKALEMIA SNOMED Code(s): 01180410 (2) Muscle weakness Current Visit: Yes Status: Acute Code(s): M62.81 - MUSCLE WEAKNESS (GENERALIZED) SNOMED Code(s): 14570497 Plan: Impression: 1. Medical debility. 2. Lower extremity weakness. 3. Hypokalemia. 4. LVH. 5. Hypertension. 6. Diabetes. Comments and plan: At this time PT and OT are ongoing with patient currently two-person assist. Rehab prognosis guarded related to this.
[2020-02-20 15:55] LABS: HIV 2 AB Non-Reactive (Non-Reactive); HIV AB P24 Non-Reactive (Non-Reactive); HIV P24 AG Non-Reactive (Non-Reactive)
[2020-02-20] MEDS: carvediloL 12.5 MG TAB PO SCH (16:26)
[2020-02-20 17:19] LABS: Glucose,Whole Blood 255 mg/dL (75-99)
[2020-02-20 17:45] LABS: T4, Free (Free Thyroxine) 1.21 ng/dL (0.78-2.19)
--- NOTE | 2020-02-20 17:52 | XR ---
EXAMINATION TYPE: XR shoulder limited RT, XR humerus RT DATE OF EXAM: 02/20/2020 CLINICAL HISTORY: Pain after fall injury. TECHNIQUE: Single frontal view right shoulder and 2 views right humerus.. COMPARISON: None. FINDINGS: Osseous structures are demineralized. There is no acute fracture/dislocation evident in the right shoulder. Moderate narrowing with mild spurring acromioclavicular joint. The glenohumeral padilla nt maintained. Visualized ribs are intact and unremarkable. Right humerus images show no acute fracture mid to distal aspect. Overlying soft tissue is unremarkab le. IMPRESSION: There is no acute fracture or dislocation in the right humerus or shoulder.
--- NOTE | 2020-02-20 19:04 | P.PN ---
Subjective Progress Note Date: 02/20/20 Principal diagnosis: Myopathy Patient was seen at bedside and he stated that he has history of diabetes, hypertension and for the past 4 weeks he noticed that he's feeling tired, cough with clear sputum, shortness of breath with no fever. He also noticed he's having generalized weakness. He felt his weakness is throughout but mostly proximal than distal. He does not notice any worsening of the weakness or improvement with that the activity. He feels agitated in the morning he somewhat his strength is the best. He does have blurry vision out of both eyes. But no diplopia no ptosis. No dysphagia. No twitching of any of his muscles. The last 2 weeks he has been dependent on his . Recently the only medication that was which was amlodipine switched to was no pill since the patient was having swelling of his lower extremities. He went to his primary care physician's office and he had an CXR and was told he has some scar tissue. Objective - Vital Signs Vital signs: Vital Signs Temp 98.5 F 02/20/20 04:00 Pulse 88 02/20/20 08:00 Resp 18 02/20/20 08:00 BP 153/70 02/20/20 08:00 Pulse Ox 95 02/20/20 04:00 Intake & Output 02/19/20 02/20/20 02/20/20 18:59 06:59 18:59 Intake Total 960 850 240 Output Total 650 850 Balance 310 0 240 Intake: Intake, IV Titration 400 Amount 0.9% NaCl with KCl 20 Meq 400 /l 1,000 ml @ 50 mls/hr IV .Q20H [facility] Rx#: [id number] Oral 960 450 240 Output: Urine 650 850 Other: Voiding Method Urinal Urinal # Voids 1 - Exam Gen.: The patient is lying in bed in acute distress from right upper extremity pain. Higher mental Function: The patient is awake, alert, oriented to self, place and time. Follows commands. No aphasia or neglect. Cranial nerves: The pupils are round, equal (3mm bilaterally) and reactive to light. EOM intact and no nystagmus. No ptosis bilaterally. Visual filed are full to confrontation throughout. Normal facial sensation to touch. No facial weakness noted throughout. No dyarthria noted. Shoulder shrug and head turning strength is 5/5. Tongue is midline and moves side to side without difficulty. No tongue fasciulation. Motor: Gait is defered. Strength Left upper extremity: Arm abduction: 4+ to 5-, adduction 3+ to 4-, arm external rotation 4+ to 5-, arm internal rotation 4+/5-, forearm extension 5, forearm flexion 4+, wrist extension and flexion 4+. Hand muscles 2-3 Right upper extremity strength could not be assessed because of patient's pain. Bilateral lower extremities: hip flexion 3+ to 4-, hip extension: 4+ to 5-, hip abduction 4+, hip adduction 4-, knee extension 5-, knee flexion 4+, ankle dorsiflexion 4+, ankle plantarflexion 5- ankle eversion 4- and inversion 5. There is atrophy of first dorsal interosseous bilaterally. Sensation: Grossly intact to light touch throughout. Reflexes: Could not assess right upper extremity because of patient pain. Left upper extremity: Biceps and triceps are 0, brachioradialis 1+. Patellar: right 0, left 1+. Ankle 0 bilaterally. Plantar is mute bilaterally. - Labs CBC & Chem 7: 02/18/20 12:04 02/20/20 06:00 Labs: Abnormal Lab Results - Last 24 Hours (Table) 02/19/20 02/19/20 02/19/20 Range/Units 12:14 16:53 17:03 Potassium 3.3 L (3.5-5.1) mmol/L Chloride (98-107) mmol/L Creatinine (0.66-1.25) mg/dL Glucose (74-99) mg/dL POC Glucose (mg/dL) 151 H 164 H (75-99) mg/dL Calcium (8.4-10.2) mg/dL 02/19/20 02/20/20 02/20/20 Range/Units 20:32 01:40 06:00 Potassium (3.5-5.1) mmol/L Chloride 109 H 110 H (98-107) mmol/L Creatinine 0.60 L 0.57 L (0.66-1.25) mg/dL Glucose 132 H 134 H (74-99) mg/dL POC Glucose (mg/dL) 218 H (75-99) mg/dL Calcium 8.0 L 7.8 L (8.4-10.2) mg/dL 02/20/20 Range/Units 06:28 Potassium (3.5-5.1) mmol/L Chloride (98-107) mmol/L Creatinine (0.66-1.25) mg/dL Glucose (74-99) mg/dL POC Glucose (mg/dL) 141 H (75-99) mg/dL Calcium (8.4-10.2) mg/dL Assessment and Plan Assessment: 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 Hypokalemia 3. Recent pneumonia 4. Leukocytosis Plan: CK: Initially 54. On repeated was 31. Potassium initially was 2.7 on presentation on 02/18/2020 then the next day to repeat it was 2.8. With correction it's back to normal last was 3.7 on 02/20/20. TSH is 0.017 on 02/18/2020. I'll repeat the TSH with reflex. Calcium initially was 8.8 on presentation. Last repeated calcium 7.8 on 02/20/2020. Recommend getting ionized calcium. Albumin initially was 3.6. Repeated on 02/19/2000 2.7. Phosphorus on 02/18/2020 is 2.3 CRP is less than 5 Magnesium has been within normal range ranging between 1.7-1.8. Liver function tests are normal. White blood cell on 02/18/20 of 12.5 and the neutrophils is 11.0. Pending Acetylcholine receptor antibody, HIV 1 and 2 antibody, Lyme antibody, rheumatoid factor. Ordered X-ray of right shoulder and arm since patient said he had multiple episodes of falls and was in pain. Will check labs for other etiologies of myopathy Physical therapy consultation Treatment of myopathy will depend in etiology Primary team ordered the MRI lumbar spine as well as an 2D echo. Thomas Alvarado MD Neuro-hospitalist Time with Patient: Greater than 30
[2020-02-20] MEDS: TAMSULOSIN 0.4 MG CAP.ER.24H PO SCH (19:59)
[2020-02-20 20:52] LABS: Glucose,Whole Blood 206 mg/dL (75-99)
[2020-02-20] MEDS ORDERED: lisinopriL 20 MG TAB PO SCH (21:00)
--- NOTE | 2020-02-20 21:29 | P.PN ---
Subjective Progress Note Date: 02/20/20 Pt's hypokalemia is corrected this am and neuro workup has so far been negative. He continues to complain of generalized weakness worst in the bilateral proximal lower extremities that limits his ambulation. MRI pending. Objective - Vital Signs Vital signs: Vital Signs Temp 98.1 F 02/20/20 19:54 Pulse 67 02/20/20 19:54 Resp 16 02/20/20 19:54 BP 158/83 02/20/20 19:54 Pulse Ox 95 02/20/20 19:54 Intake & Output 02/20/20 02/20/20 02/21/20 06:59 18:59 06:59 Intake Total 850 720 Output Total 850 200 Balance 0 520 Intake: Intake, IV Titration 400 Amount 0.9% NaCl with KCl 20 Meq 400 /l 1,000 ml @ 50 mls/hr IV .Q20H [facility] Rx#: [id number] Oral 450 720 Output: Urine 850 200 Other: Voiding Method Urinal # Voids 1 1 - Exam Gen: well developed white male in NAD CV: RRR, no murmur Lungs: normal effort, clear throughout Abd: soft, nontender Neuro: alert and oriented x3. Str 3/5 bilateral LE. Str 4/5 bilateral UE. Reflexes 1+ patellar - Labs CBC & Chem 7: 02/18/20 12:04 02/20/20 06:00 Labs: Abnormal Lab Results - Last 24 Hours (Table) 02/20/20 02/20/20 02/20/20 Range/Units 01:40 01:40 06:00 Chloride 109 H 110 H (98-107) mmol/L Creatinine 0.60 L 0.57 L (0.66-1.25) mg/dL Glucose 132 H 134 H (74-99) mg/dL POC Glucose (mg/dL) (75-99) mg/dL Calcium 8.0 L 7.8 L (8.4-10.2) mg/dL TSH 0.143 L (0.465-4.680) mIU/L 02/20/20 02/20/20 02/20/20 Range/Units 06:28 12:03 17:07 Chloride (98-107) mmol/L Creatinine (0.66-1.25) mg/dL Glucose (74-99) mg/dL POC Glucose (mg/dL) 141 H 272 H 255 H (75-99) mg/dL Calcium (8.4-10.2) mg/dL TSH (0.465-4.680) mIU/L 02/20/20 Range/Units 20:51 Chloride (98-107) mmol/L Creatinine (0.66-1.25) mg/dL Glucose (74-99) mg/dL POC Glucose (mg/dL) 206 H (75-99) mg/dL Calcium (8.4-10.2) mg/dL TSH (0.465-4.680) mIU/L Assessment and Plan (1) Myopathy Current Visit: Yes Status: Acute Code(s): G72.9 - MYOPATHY, UNSPECIFIED SNOMED Code(s): 007091691 (2) Hypokalemia Current Visit: Yes Status: Acute Code(s): E87.6 - HYPOKALEMIA SNOMED Code(s): 57208903 (3) Muscle weakness Current Visit: Yes Status: Acute Code(s): M62.81 - MUSCLE WEAKNESS (GENERALIZED) SNOMED Code(s): 22702541 (4) Essential hypertension Current Visit: No Status: Acute Code(s): I10 - ESSENTIAL (PRIMARY) HYPE RTENSION SNOMED Code(s): 61197874 (5) Type 2 diabetes mellitus Current Visit: No Status: Acute Code(s): E11.9 - TYPE 2 DIABETES MELLITUS WITHOUT COMPLICATIONS SNOMED Code(s): 60509252 (6) Low TSH level Current Visit: Yes Status: Acute Code(s): R79.89 - OTHER SPECIFIED ABNORMAL FINDINGS OF BLOOD CHEMISTRY SNOMED Code(s): 378021729 Plan: Continue neuro workup. MRI lumbar spine pending. PT recommending IPR. PM&R consulted
[2020-02-21] MEDS: 0.9% NACL WITH KCL 20 MEQ/L 1,000 ML IV SCH (00:39)
[2020-02-21 06:24] LABS: Glucose,Whole Blood 155 mg/dL (75-99)
[2020-02-21] MEDS: carvediloL 12.5 MG TAB PO SCH ×2 (06:55→17:28)
[2020-02-21] MEDS: PANTOPRAZOLE 40 MG TABLET PO SCH (06:55)
[2020-02-21] MEDS: INSULIN ASPART (NovoLOG) 100 UNIT/ML VIAL SQ SCH ×4 (06:55→21:11)
[2020-02-21 07:54] LABS: Ionized Calcium 5.1 mg/dL (4.5-5.3)
[2020-02-21 08:02] LABS: African American GFR (CKD) >90 (>60 ml/min/1.73 sqM); Anion Gap 4 mmol/L; Blood Urea Nitrogen 15 mg/dL (9-20); Calcium 8.7 mg/dL (8.4-10.2); Carbon Dioxide 26 mmol/L (22-30); Chloride 111 mmol/L (98-107); Glucose 146 mg/dL (74-99); Magnesium 1.8 mg/dL (1.6-2.3); Non-African American GFR(CKD) >90 (>60 ml/min/1.73 sqM); Phosphorus 1.6 mg/dL (2.5-4.5); Potassium 4.3 mmol/L (3.5-5.1); Sodium 141 mmol/L (137-145)
[2020-02-21] MEDS ORDERED: amLODIPine 5 MG TAB PO SCH (09:00)
[2020-02-21] MEDS: ENOXAPARIN 40 MG/0.4 ML SYRINGE SQ SCH (09:03)
[2020-02-21] MEDS: LOSARTAN 50 MG TAB PO SCH (09:04)
[2020-02-21] MEDS: hydrALAZINE HCL 50 MG TAB PO SCH ×3 (09:04→21:10)
[2020-02-21] MEDS: MAGNESIUM OXIDE 400 MG TAB PO SCH (09:04)
[2020-02-21] MEDS: SPIRONOLACTONE 25 MG TAB PO SCH (09:04)
[2020-02-21] MEDS: POTASSIUM CHLORIDE ER 20 MEQ TAB.ER PO SCH (09:08)
--- NOTE | 2020-02-21 10:56 | P.PN ---
Subjective Progress Note Date: 02/21/20 The supplement 64-year-old gentleman with a history of hypertension who presented with symptoms progressive fatigue with lack of energy and weakness. For times multifocal Presentation. He does have a history of diabetes. He continues to feel fatigued with some lack of energy and complains of some dizzin ess when he is up walking. He complained of a dry cough that appeared to be BIJAN inhibitor related and he was switched to an ARB. Complaining of some peripheral edema and his amlodipine was decreased. Echocardiogram is admission showed normal systolic function. She is currently on amlodipine 5 mg by mouth daily, carvedilol 12.5 mg by mouth twice a day, hydralazine 100 mg by mouth 3 times a day, losartan 100 mg by mouth daily, potassium chloride for any milliequivalents by mouth twice a day and Aldactone 25 mg by mouth daily. Blood pressure remains elevated 170s to 180s/80s. Labs today show potassium 4.3, BUN 15, creatinine 0.71. He continues to feel quite weak with some dizziness. Overall he feels his cough is improving slightly. Continues have lower extremity edema and is unable to tell if this is improved. Objective - Vital Signs Vital signs: Vital Signs Temp 98.4 F 02/21/20 04:00 Pulse 72 02/21/20 06:48 Resp 18 02/21/20 04:00 BP 174/87 02/21/20 06:48 Pulse Ox 96 02/21/20 04:00 Intake & Output 02/20/20 02/21/20 02/21/20 18:59 06:59 18:59 Intake Total 720 240 Output Total 200 1500 500 Balance 520 -1500 -260 Intake: Oral 720 240 Output: Urine 200 1500 500 Other: Voiding Method Urinal # Voids 1 1 # Bowel Movements 1 - Exam PHYSICAL EXAMINATION: HEENT: Head is atraumatic, normocephalic. Pupils equal, round. Neck is supple. There is no elevated jugular venous pressure. HEART EXAMINATION: Heart sounds regular, S1 and S2 with a systolic murmur. CHEST EXAMINATION: Lungs are clear to auscultation and precussion. No chest wall tenderness is noted on palpation or with deep breathing. ABDOMEN: Soft, nontender. Bowel sounds are heard. No organomegaly noted. EXTREMITIES: 2+ peripheral pulses with evidence of 1+ peripheral edema and no calf tenderness noted. NEUROLOGIC patient is awake, alert and oriented x3. - Labs CBC & Chem 7: 02/18/20 12:04 02/21/20 07:24 Labs: Abnormal Lab Results - Last 24 Hours (Table) 02/20/20 02/20/20 02/20/20 Range/Units 01:40 12:03 17:07 Chloride (98-107) mmol/L Glucose (74-99) mg/dL POC Glucose (mg/dL) 272 H 255 H (75-99) mg/dL Phosphorus (2.5-4.5) mg/dL TSH 0.143 L (0.465-4.680) mIU/L 02/20/20 02/21/20 02/21/20 Range/Units 20:51 06:22 07:24 Chloride 111 H (98-107) mmol/L Glucose 146 H (74-99) mg/dL POC Glucose (mg/dL) 206 H 155 H (75-99) mg/dL Phosphorus 1.6 L (2.5-4.5) mg/dL TSH (0.465-4.680) mIU/L Assessment and Plan Assessment: #1 hypokalemia, improved #2 symptoms of fatigue with lack of energy, could be related to hypokalemia #3 hypertension #4 cough, appears to be BIJAN inhibitor cough, improving #5 peripheral edema, could be related to amlodipine, patient had similar issues in the past Plan: From cardiology's perspective, blood pressure remains suboptimally controlled we will increase carvedilol to 25 mg by mouth twice a day. Potassium is steadily climbing we will decrease patient's potassium supplementation. We will continue to monitor the blood pressure, electrolytes and renal function. Further recommendations to follow. ORTHO ASSISTANT note has been reviewed, I agree with a documented findings and plan of care. Patient was seen and examined.
[2020-02-21] MEDS ORDERED: Phosphorus Replacement Protoco 1 EACH MISC MISCELLANE PRN (11:09)
--- NOTE | 2020-02-21 12:19 | P.PN ---
Subjective Patient is seen in follow-up for hypertension and hypokalemia. Potassium level now normal. Blood pressure stable. Continues to have weakness in his extremities. Vital signs are stable. General: The patient appeared well nourished and normally developed. HEENT: Head exam is unremarkable. Neck is without jugular venous distension. LUNGS: Lungs are clear to auscultation and percussion. Breath sounds decreased. HEART: Rate and Rhythm are regular. ABDOMEN: soft, nontender. EXTREMITITES: No edema. Objective - Vital Signs Vital signs: Vital Signs Temp 98.2 F 02/21/20 08:25 Pulse 65 02/21/20 08:25 Resp 18 02/21/20 08:25 BP 149/78 02/21/20 08:25 Pulse Ox 96 02/21/20 08:25 Intake & Output 02/20/20 02/21/20 02/21/20 18:59 06:59 18:59 Intake Total 720 240 Output Total 200 1500 1300 Balance 520 -1500 -1060 Intake: Oral 720 240 Output: Urine 200 1500 1300 Other: Voiding Method Urinal # Voids 1 1 # Bowel Movements 1 - Labs CBC & Chem 7: 02/18/20 12:04 02/21/20 07:24 Labs: Abnormal Lab Results - Last 24 Hours (Table) 02/20/20 02/20/20 02/20/20 Range/Units 01:40 17:07 20:51 Chloride (98-107) mmol/L Glucose (74-99) mg/dL POC Glucose (mg/dL) 255 H 206 H (75-99) mg/dL Phosphorus (2.5-4.5) mg/dL TSH 0.143 L (0.465-4.680) mIU/L 02/21/20 02/21/20 Range/Units 06:22 07:24 Chloride 111 H (98-107) mmol/L Glucose 146 H (74-99) mg/dL POC Glucose (mg/dL) 155 H (75-99) mg/dL Phosphorus 1.6 L (2.5-4.5) mg/dL TSH (0.465-4.680) mIU/L Assessment and Plan Plan: Assessment: 1. Hypertension with hypokalemia. There is concern for underlying hyperaldosteronism. Morning cortisol level normal. 2. 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 Magnesium normal. better. 3. Lower extremity weakness possibly due to hypokalemia. ? Underlying neurolo gical illness. 4. Hypophosphatemia from poor intake. Plan: follow-up plasma renin and aldosterone levels. follow-up plasma metanephrines. Increase amlodipine to 5 mg twice daily. Replace phosphorus. Hep-Lock IV fluids.
[2020-02-21 12:33] LABS: Glucose,Whole Blood 156 mg/dL (75-99)
--- NOTE | 2020-02-21 13:37 | P.DS ---
Providers Date of admission: 02/20/20 13:40 Expected date of discharge: 02/21/20 Attending physician: Matt Snowden MD Consults: 02/18/20 11:58 Consult Physician Urgent Consulting Provider: Aixa Tristan Consult Reason/Comments: weakness, evaluate for guillain-barre Do you want consulting provider notified?: Yes 02/18/20 15:48 Consult Physician Urgent Consulting Provider: Asa Blake Consult Reason/Comments: low K+ Do you want consulting provider notified?: Yes 02/18/20 15:54 Consult Physician Stat Consulting Provider: Moris Bailey Consult Reason/Comments: Blood in the urine Do you want consulting provider notified?: Yes 02/19/20 07:47 Consult Physician Routine Consulting Provider: Eddi Malagon Consult Reason/Comments: known to cardiology Do you want consulting provider notified?: Yes 02/20/20 11:47 Consult Physician Routine Consulting Provider: Saul Bob Consult Reason/Comments: eval for inpatient rehab Do you want consulting provider notified?: Yes Primary care physician: Matt Snowden MD - Discharge Diagnosis(es) (1) Myopathy Current Visit: Yes Status: Acute (2) Hypokalemia Current Visit: Yes Status: Acute (3) Muscle weakness Current Visit: Yes Status: Acute (4) Essential hypertension Current Visit: No Status: Acute (5) Type 2 diabetes mellitus Current Visit: No Status: Acute (6) Low TSH level Current Visit: Yes Status: Acute Hospital Course: Mr. Quezada is a 64-year-old male with a past medical history of hypertension, diabetes mellitus, enlarged prostate, persistent hypokalemia sent by his primary care physician Dr. Snowden for ongoing lower extremity weakness. Patient states that for the past 4-5 weeks he has been having lower extremity weakness that is progressively getting worse. Patient is hard of hearing, so the history is also supported by his was at the bedside. He was admitted last month with community acquired pneumonia and hypertensive urgency, at that time he was seen by cardiology and treated with antibiotics and his blood pressure controlled. He was somewhat weak at that time but his symptoms have progressed since discharge now to the point that he is unable to stand or walk and has been spending all day in bed. Patient denies having any difficulty in breathing. His weakness is mostly in his both lower extremities. He does complain of some mild blurry vision. No difficulty in speech/swallowing. Patient denies having any orthopnea or PND. The lower extremity swelling has been worsening since being discharged from the hospital. Patient's mentions that she has been getting his potassium supplements as prescribed. On presentation he was hypertensive saturating at 97% on room air. He had blood work done showing potassium level of 2.7., TSH of 0.017 with normal T4, phosphorus of 2.3. Urine analysis is showing 3+ protein with trace ketones and moderate blood. Negative for leukocyte esterase. He also had a computed tomography scan of the brain showing no obvious acute intra-cranial hemorrhage or mass effect along with remote microvascular ischemia. Pt was admitted to medicine and evaluated by Neurology and Nephrology. His hypokalemia was corrected without any improvement in his symptoms. Neurology ordered cortisol and rheumatoid factor levels which were negative as well as anti-Ach receptor ab and HIV testing which are still pending. Per discussion with Neurology, recommending higher level of care to pursue further testing. Pt will be transferred to [facility] for further evaluation and management. Patient Condition at Discharge: Serious Plan - Discharge Summary New Discharge Prescriptions: New Spironolactone [Aldactone] 25 mg PO DAILY #30 tab carvediloL [Coreg*] 12.5 mg PO BID-W/MEALS #60 tab Losartan [Cozaar] 100 mg PO DAILY #30 tab Continue Tamsulosin HCl [Flomax] 0.4 mg PO HS amLODIPine [Norvasc] 5 mg PO BID 30 Days #60 tab hydrALAZINE HCL [Apresoline] 100 mg PO TID #180 tab metFORMIN HCL [metFORMIN HCL ER] 500 mg PO BID traZODone HCL 50 mg PO HS PRN PRN Reason: Insomnia Magnesium Oxide 400 mg PO DAILY Discontinued Metoprolol Tartrate [Lopressor] 25 mg PO BID 30 Days #60 tab Potassium Chloride ER [K-Dur 20] 40 meq PO DAILY #60 tab hydroCHLOROthiazide [Hydrodiuril] 25 mg PO DAILY lisinopriL [Zestril] 20 mg PO DAILY Discharge Medication List Tamsulosin HCl [Flomax] 0.4 mg PO HS 01/26/20 [History] amLODIPine [Norvasc] 5 mg PO BID 30 Days #60 tab 01/29/20 [Rx] hydrALAZINE HCL [Apresoline] 100 mg PO TID #180 tab 01/30/20 [Rx] Magnesium Oxide 400 mg PO DAILY 02/18/20 [History] metFORMIN HCL [metFORMIN HCL ER] 500 mg PO BID 02/18/20 [History] traZODone HCL 50 mg PO HS PRN 02/18/20 [History] Losartan [Cozaar] 100 mg PO DAILY #30 tab 02/21/20 [Rx] Spironolactone [Aldactone] 25 mg PO DAILY #30 tab 02/21/20 [Rx] carvediloL [Coreg*] 12.5 mg PO BID-W/MEALS #60 tab 02/21/20 [Rx] Follow up Appointment(s)/Referral(s): Matt Snowden MD [Primary Care Provider] - 1-2 days Discharge Disposition: OTHER INSTITUTION NOT DEFINED Plan of Treatment: to inpatient rehab Pending Studies Pending Results: anti-Ach receptor ab, HIV, lyme
--- NOTE | 2020-02-21 14:35 | MR ---
EXAMINATION TYPE: MR lumbar spine wo/w con DATE OF EXAM: 02/21/2020 COMPARISON: NONE HISTORY: Lower extremity weakness TECHNIQUE: Multiplanar, multisequence images of the lumbar spine is performed without and with IV contrast, util izing 9 mL intravenous Gadavist FINDINGS: Sagittal images of the lumbar spine show vertebral body height to appear satisfactory. Alig nment somewhat straightened with multilevel grade 1 retrolisthesis. Multilevel disc desiccation and d isc space narrowing with fairly moderate to advanced findings along with disc desiccation L3-L4 and L 4-L5 levels. Moderate multilevel anterior spurring. The conus medullaris is somewhat low in position in the mid L2 level without abnormal signal. The bone marrow signal intensity shows some heterogenei ty without suspicious enhancement. Annular tears with increased posterior signal L3-L4 and L5-S1 leve ls. Axial images at T12-L1 level show tiny left paracentral disc protrusion mildly effacing anterolateral thecal sac. Axial images at L1-L2 level mild broad disc bulge with left paracentral disc protrusion component mil dly effacing anterior thecal sac. Axial images at L2-L3 level show mild broad disc bulge without spinal canal is preserved. Axial images at L3-L4 level show moderate to severe broad disc bulge with focal central disc protrusi on effacing anterior thecal sac and [id number] facet degenerative changes bilaterally with liga mentum flavum hypertrophy effacing right greater than left posterolateral thecal sac. Findings most p rominent on axial image 18. There is [id number] bilateral anterior inferior neural foraminal na rrowing. Axial images at L4-L5 level show moderate right greater than left facet degenerative changes bilatera lly. There is 10 mm thin-walled cyst probable synovial cyst right aspect axial image 11. There is mod erate to advanced broad disc bulge with central disc protrusion component effacing the anterior and p osterior lateral thecal sac on axial image 10. There is severe right and moderate left-sided neural f oraminal narrowing. Encroachment along inferior right L4 nerve present sagittal image 13. Axial images at the L5-S1 level shows moderate to advanced facet degenerative changes encroaching agueda ng the left lateral spinal canal axial image 5. There is mild broad disc bulge with left foraminal di sc protrusion component. Bilateral neural foramina remain patent. There is 9 mm round T1 hyperintense and T2 hypointense renal lesion medially upper pole right kidney on axial image 35 consistent with hemorrhagic cyst. There is probable simple appearing thin-walled cy st lower pole left kidney. Paraspinal muscle bulk is preserved. Prominent retroperitoneal fat is note d bilaterally. Postcontrast images show nonspecific enhancement of a few lumbosacral nerve roots with out suspicious clumping. IMPRESSION: Multilevel degenerative changes in the lumbar spine as detailed above, most prominent spi nal canal effacement of stenosis is at L3-L4 and L4-L5 levels.
[2020-02-21 16:56] LABS: Glucose,Whole Blood 300 mg/dL (75-99)
--- NOTE | 2020-02-21 19:58 | P.PN ---
Subjective Principal diagnosis: Muscles weakness possibly myopathy Patient feels about the same today compared to yesterday. He denies any worse ihsan of his condition. States as long as he is in bed he is ok. Objective - Vital Signs Vital signs: Vital Signs Temp 98.1 F 02/21/20 15:40 Pulse 80 02/21/20 15:40 Resp 18 02/21/20 15:40 BP 146/77 02/21/20 15:40 Pulse Ox 94 L 02/21/20 15:40 Intake & Output 02/21/20 02/21/20 02/22/20 06:59 18:59 06:59 Intake Total 480 Output Total 1500 1850 Balance -1500 -1370 Intake: Oral 480 Output: Urine 1500 1850 Other: Voiding Method Urinal # Voids 1 # Bowel Movements 1 - Exam General.: The patient is lying in bed in mild acute distress from right upper extremity pain. Higher mental Function: The patient is awake, alert, oriented to self, place and time. Follows commands. No aphasia or neglect. Cranial nerves: The pupils are round, equal (3mm bilaterally) and reactive to light. EOM intact and no nystagmus. No ptosis bilaterally. Visual filed are full to confrontation throughout. Normal facial sensation to touch. No facial weakness noted throughout. No dyarthria noted. Shoulder shrug and head turning strength is 5/5. Tongue is midline and moves side to side without difficulty. No tongue fasciulation. Motor: Gait is defered. Strength Left upper extremity: Arm abduction: 4+ to 5-, adduction 3+ to 4-, arm external rotation 4+ to 5-, arm internal rotation 4+/5-, forearm extension 5, forearm flexion 4+, wrist extension and flexion 4+. Hand muscles 2-3 Right upper extremity strength could not be assessed because of patient's pain. Bilateral lower extremities: hip flexion 3+ to 4-, hip extension: 4+ to 5-, hip abduction 4+, hip adduction 4-, knee extension 5-, knee flexion 4+, ankle dorsi flexion 4+, ankle plantarflexion 5- ankle eversion 4- and inversion 5. There is atrophy of first dorsal interosseous bilaterally. Sensation: Grossly intact to light touch throughout. Reflexes: Could not assess right upper extremity because of patient pain. Left upper extremity: Biceps and triceps are 0, brachioradialis 1+. Patellar: right 0, left 1+. Ankle 0 bilaterally. Plantar is mute bilaterally. - Labs CBC & Chem 7: 02/18/20 12:04 02/21/20 07:24 Labs: Abnormal Lab Results - Last 24 Hours (Table) 02/20/20 02/21/20 02/21/20 Range/Units 20:51 06:22 07:24 Chloride 111 H (98-107) mmol/L Glucose 146 H (74-99) mg/dL POC Glucose (mg/dL) 206 H 155 H (75-99) mg/dL Phosphorus 1.6 L (2.5-4.5) mg/dL 02/21/20 02/21/20 Range/Units 12:14 16:45 Chloride (98-107) mmol/L Glucose (74-99) mg/dL POC Glucose (mg/dL) 156 H 300 H (75-99) mg/dL Phosphorus (2.5-4.5) mg/dL Assessment and Plan Assessment: Patient has 4 week history of weakness of bilateral upper and lower extremities and felt it was proximal > distal. Feels his weakness has progressively been worsening. He does not have ptosis or diplopia and not fatigueable. Denies any sensory changes. He had hypokalemia on two different admissions. 1. 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 Does not seem consistent with Guillain-Rivas syndrome. 2. Hypokalemia 3. Recent pneumonia 4. Leukocytosis Plan: CK: Initially 54. On repeated was 31. Potassium initially was 2.7 on presentation on 02/18/2020 then the next day to repeat it was 2.8. With correction it's back to normal last was 4.3 on 02/21/2020. TSH is 0.017 on 02/18/2020. Repeat is 0.143 with free T4: 1.21 (normal). Calcium initially was 8.8 on presentation. Last repeated calcium 7.8 on 02/20/2020. Ionized calcium:5.1 Albumin initially was 3.6. Repeated on 02/19/2000 2.7. Phosphorus on 02/18/2020 is 2.3 CRP is less than 5 Magnesium has been within normal range ranging between 1.7-1.8. Liver function tests are normal. White blood cell on 02/18/20 of 12.5 and the neutrophils is 11.0. DARLENE: Negative RF: 8 (normal). Pending Acetylcholine receptor antibody, HIV 1 and 2 antibody, Lyme antibody. MRI lumbar spine as well as an 2D echo Physical therapy. Treatment of myopathy will depend in etiology I recommend patient to be transfered to tertiary facility where patient can get EMG as inpatient which will help with his condition of whether its truly a myopathy Thomas Alvarado MD Neuro-hospitalist Time with Patient: Less than 30
[2020-02-21 20:03] LABS: Glucose,Whole Blood 217 mg/dL (75-99)
[2020-02-21] MEDS: amLODIPine 5 MG TAB PO SCH (21:11)
[2020-02-21] MEDS: TAMSULOSIN 0.4 MG CAP.ER.24H PO SCH (21:11)
[2020-02-22 06:12] LABS: Glucose,Whole Blood 152 mg/dL (75-99)
[2020-02-22] MEDS: carvediloL 12.5 MG TAB PO SCH ×2 (07:11→17:32)
[2020-02-22] MEDS: PANTOPRAZOLE 40 MG TABLET PO SCH (07:12)
[2020-02-22] MEDS: INSULIN ASPART (NovoLOG) 100 UNIT/ML VIAL SQ SCH ×3 (07:15→17:32)
[2020-02-22 07:20] LABS: African American GFR (CKD) >90 (>60 ml/min/1.73 sqM); Anion Gap 4 mmol/L; Blood Urea Nitrogen 18 mg/dL (9-20); Carbon Dioxide 25 mmol/L (22-30); Chloride 108 mmol/L (98-107); Glucose 136 mg/dL (74-99); Magnesium 1.8 mg/dL (1.6-2.3); Non-African American GFR(CKD) >90 (>60 ml/min/1.73 sqM); Potassium 4.4 mmol/L (3.5-5.1); Sodium 137 mmol/L (137-145)
[2020-02-22] MEDS ORDERED: POTASSIUM CHLORIDE ER 20 MEQ TAB.ER PO SCH (09:00)
[2020-02-22 09:14] VITALS: RESP 16
[2020-02-22] MEDS: LOSARTAN 50 MG TAB PO SCH (09:15)
[2020-02-22] MEDS: SPIRONOLACTONE 25 MG TAB PO SCH (09:15)
[2020-02-22] MEDS: hydrALAZINE HCL 50 MG TAB PO SCH ×2 (09:15→17:31)
[2020-02-22] MEDS: ENOXAPARIN 40 MG/0.4 ML SYRINGE SQ SCH (09:15)
[2020-02-22] MEDS: MAGNESIUM OXIDE 400 MG TAB PO SCH (09:15)
[2020-02-22] MEDS: amLODIPine 5 MG TAB PO SCH (09:15)
--- NOTE | 2020-02-22 11:42 | P.PN ---
Subjective Progress Note Date: 02/22/20 This is a pleasant 64-year-old gentleman with a history of hypertension who presented with symptoms progressive fatigue with lack of energy and weakness. For times multifocal Presentation. He does have a history of diabetes. He continues to feel fatigued with some lack of energy and complains of some di zziness when he is up walking. He complained of a dry cough that appeared to be BIJAN inhibitor related and he was switched to an ARB. Complaining of some peripheral edema and his amlodipine was decreased. Echocardiogram is admission showed normal systolic function. She is currently on amlodipine 5 mg by mouth daily, carvedilol 12.5 mg by mouth twice a day, hydralazine 100 mg by mouth 3 times a day, losartan 100 mg by mouth daily, potassium chloride for any milliequivalents by mouth twice a day and Aldactone 25 mg by mouth daily. Blood pressure remains elevated 170s to 180s/80s. Labs today show potassium 4.3, BUN 15, creatinine 0.71. He continues to feel quite weak with some dizziness. Overall he feels his cough is improving slightly. Continues have lower extremity edema and is unable to tell if this is improved. 02/22/2020 The patient was seen and examined resting comfortably in bed. He continues to feel significantly weak. Denies any dizziness but has not been up out of bed yet today. Blood pressure is much better controlled with a systolic blood pressure 130s to 140s and a diastolic blood pressure 70s to 80s. Potassium is stable at 4.4. We decreased his amlodipine to 5mg daily due to lower extremity edema. This has been increased again by nephrology. He continues on carvedilol 25 mg by mouth twice a day, hydralazine 100 mg by mouth 3 times a day, losartan 100 mg by mouth daily, and spironolactone 25 mg by mouth daily. He is anticipating transfer to [facility] sometime today for further neurological workup in regards to his weakness. Objective - Vital Signs Vital signs: Vital Signs Temp 98 F 02/22/20 09:10 Pulse 64 02/22/20 09:10 Resp 16 02/22/20 09:10 BP 138/70 02/22/20 09:10 Pulse Ox 95 02/22/20 09:10 Intake & Output 02/21/20 02/22/20 02/22/20 18:59 06:59 18:59 Intake Total 480 120 Output Total 1850 500 400 Balance -1370 -500 -280 Intake: Oral 480 120 Output: Urine 1850 500 400 Other: Voiding Method Urinal Urinal - Exam PHYSICAL EXAMINATION: HEENT: Head is atraumatic, normocephalic. Pupils equal, round. Neck is supple. There is no elevated jugular venous pressure. HEART EXAMINATION: Heart sounds regular, S1 and S2 with a systolic murmur. CHEST EXAMINATION: Lungs are clear to auscultation and precussion. No chest wall tenderness is noted on palpation or with deep breathing. ABDOMEN: Soft, nontender. Bowel sounds are heard. No organomegaly noted. EXTREMITIES: 2+ peripheral pulses with evidence of 1+ peripheral edema which appears to have improved since yesterday and no calf tenderness noted. Evidence of muscle wasting noted. NEUROLOGIC patient is awake, alert and oriented x3. Complains of significant generalized weakness. - Labs CBC & Chem 7: 02/18/20 12:04 02/22/20 06:22 Labs: Abnormal Lab Results - Last 24 Hours (Table) 02/21/20 02/21/20 02/21/20 Range/Units 12:14 16:45 20:01 Chloride (98-107) mmol/L Glucose (74-99) mg/dL POC Glucose (mg/dL) 156 H 300 H 217 H (75-99) mg/dL 02/22/20 02/22/20 Range/Units 06:10 06:22 Chloride 108 H (98-107) mmol/L Glucose 136 H (74-99) mg/dL POC Glucose (mg/dL) 152 H (75-99) mg/dL Assessment and Plan Assessment: #1 hypokalemia, improved #2 symptoms of fatigue with lack of energy, could be related to hypokalemia #3 hypertension #4 cough, appears to be BIJAN inhibitor cough, improving #5 peripheral edema, could be related to amlodipine, patient had similar issues in the past Plan: From cardiology's perspective, blood pressure is better controlled. We will plan for follow-up in the office once patient is discharged home from the [facility]. TRANSPORT OPERATIONS INSPECTOR note has been reviewed, I agree with a documented findings and plan of care. Patient was seen and examined.
[2020-02-22 12:03] LABS: Glucose,Whole Blood 170 mg/dL (75-99)
[2020-02-22 12:43] VITALS: PULSE 69
--- NOTE | 2020-02-22 14:45 | P.PN ---
Subjective Patient is seen in follow-up for hypertension and hypokalemia. Potassium level now normal. Blood pressure stable. Continues to have weakness in his extremities. No changes overnight. Vital signs are stable. General: The patient appeared well nourished and normally developed. HEENT: Head exam is unremarkable. Neck is without jugular venous distension. LUNGS: Lungs are clear to auscultation and percussion. Breath sounds decreased. HEART: Rate and Rhythm are regular. ABDOMEN: soft, nontender. EXTREMITITES: No edema. Objective - Vital Signs Vital signs: Vital Signs Temp 98 F 02/22/20 09:10 Pulse 69 02/22/20 12:10 Resp 16 02/22/20 12:10 BP 158/80 02/22/20 12:10 Pulse Ox 95 02/22/20 12:10 Intake & Output 02/21/20 02/22/20 02/22/20 18:59 06:59 18:59 Intake Total 480 240 Output Total 6325 512 7393 Balance -1370 500 1085 Intake: Oral 480 240 Output: Urine 5186 017 5947 Other: Voiding Method Urinal Urinal - Labs CBC & Chem 7: 02/18/20 12:04 02/22/20 06:22 Labs: Abnormal Lab Results - Last 24 Hours (Table) 02/21/20 02/21/20 02/22/20 Range/Units 16:45 20:01 06:10 Chloride (98-107) mmol/L Glucose (74-99) mg/dL POC Glucose (mg/dL) 300 H 217 H 152 H (75-99) mg/dL 02/22/20 02/22/20 Range/Units 06:22 11:50 Chloride 108 H (98-107) mmol/L Glucose 136 H (74-99) mg/dL POC Glucose (mg/dL) 170 H (75-99) mg/dL Assessment and Plan Plan: Assessment: 1. Hypertension with hypokalemia. There was concern for underlying hyperaldosteronism - serum aldosterone normal; PRA not elevated either. Morning cortisol level normal. 2. Hypokalemia secondary to diuretics. Magnesium normal. Resolved. 3. Lower extremity weakness possibly due to hypokalemia. ? Underlying neurological illness. 4. Hypophosphatemia from poor intake. S/p replacement. Plan: Follow-up plasma metanephrines. Maintain current anti-hypertensives. Check phosphorus level today. Potential transfer to tertiary care center for further neurological workup.
[2020-02-22 16:47] LABS: Glucose,Whole Blood 183 mg/dL (75-99)
[2020-02-22 16:53] VITALS: BP 145/78; TEMP 98.3
--- NOTE | 2020-02-22 17:38 | P.PN ---
Subjective Progress Note Date: 02/22/20 Principal diagnosis: Muscles weakness Again the patient was seen at bedside and he states that he feels about the same. He said as long as he is not on a bed he feels stable. Denies any difficulty swallowing. Denies any new neurological problems. Objective - Vital Signs Vital signs: Vital Signs Temp 98.3 F 02/22/20 16:20 Pulse 69 02/22/20 16:20 Resp 16 02/22/20 16:20 BP 145/78 02/22/20 16:20 Pulse Ox 97 02/22/20 16:20 Intake & Output 02/21/20 02/22/20 02/22/20 18:59 06:59 18:59 Intake Total 480 240 Output Total 3346 964 4235 Balance -1370 -500 -1085 Intake: Oral 480 240 Output: Urine 6383 759 9947 Other: Voiding Method Urinal Urinal - Exam General.: The patient is lying in bed in mild acute distress from right upper extremity pain. Higher mental Function: The patient is awake, alert, oriented to self, place and time. Follows commands. No aphasia or neglect. Cranial nerves: The pupils are round, equal (3mm bilaterally) and reactive to light. EOM intact and no nystagmus. No ptosis bilaterally. Visual filed are full to confrontation throughout. Normal facial sensation to touch. No facial weakness noted throughout. No dyarthria noted. Shoulder shrug and head turning strength is 5/5. Tongue is midline and moves side to side without difficulty. No tongue fasciulation. Motor: Gait is defered. Strength Left upper extremity: Arm abduction: 4+ to 5-, adduction 3+ to 4-, arm external rotation 4+ to 5-, arm internal rotation 4+/5-, forearm extension 5, forearm flexion 4+, wrist extension and flexion 4+. Hand muscles 2-3 Right upper extremity strength could not be assessed because of patient's pain. Bilateral lower extremities: hip flexion 3+ to 4-, hip extension: 4+ to 5-, hip abduction 4+, hip adduction 4-, knee extension 5-, knee flexion 4+, ankle dorsiflexion 4+, ankle plantarflexion 5- ankle eversion 4- and inversion 5. There is atrophy of first dorsal interosseous bilaterally. Sensation: Grossly intact to light touch throughout. Reflexes: Could not assess right upper extremity because of patient pain. Left upper extremity: Biceps and triceps are 0, brachioradialis 1+. Patellar: right 0, left 1+. Ankle 0 bilaterally. Plantar is mute bilaterally - Labs CBC & Chem 7: 02/18/20 12:04 02/22/20 06:22 Labs: Abnormal Lab Results - Last 24 Hours (Table) 02/21/20 02/22/20 02/22/20 Range/Units 20:01 06:10 06:22 Chloride 108 H (98-107) mmol/L Glucose 136 H (74-99) mg/dL POC Glucose (mg/dL) 217 H 152 H (75-99) mg/dL 02/22/20 02/22/20 Range/Units 11:50 16:40 Chloride (98-107) mmol/L Glucose (74-99) mg/dL POC Glucose (mg/dL) 170 H 183 H (75-99) mg/dL Assessment and Plan Assessment: Patient has 4 week history of weakness of bilateral upper and lower extremities and felt it was proximal > distal. Feels his weakness has progressively been worsening. He does not have ptosis or diplopia and not fatigueable. Denies any sensory changes. He had hypokalemia on two different admissions. 1. 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 2. Hypokalemia--resolved 3. Recent pneumonia 4. Leukocytosis Plan: CK: Initially 54. On repeated was 31. Potassium initially was 2.7 on presentation on 02/18/2020 then the next day to repeat it was 2.8. With correction it's back to normal last was 4.3 on 02/21/2020. TSH is 0.017 on 02/18/2020. Repeat is 0.143 with free T4: 1.21 (normal). Calcium initially was 8.8 on presentation. Last repeated calcium 7.8 on . Ionized calcium:5.1 Albumin initially was 3.6. Repeated on 02/19/2000 2.7. Phosphorus on 02/18/2020 is 2.3 CRP is less than 5 Magnesium has been within normal range ranging between 1.7-1.8. Liver function tests are normal. White blood cell on 02/18/20 of 12.5 and the neutrophils is 11.0. DARLENE: Negative RF: 8 (normal). HIV 1 and 2 antibody: non reactive. Lyme antibody: Negative Pending Acetylcholine receptor antibody MRI lumbar spine:Multilevel degenerative changes in the limbar spine, most prominent spinal canal effacement of stenosis is at L3-L4 and L4-L5 levels. 2D echo limited study: EG 55-60% Physical therapy. I recommend patient to be transfered to tertiary facility where patient can get EMG as inpatient which will help with his condition of whether its truly a myopathy vs polyradiculopathy Thomas Alvarado MD Neuro-hospitalist Time with Patient: Less than 30
[2020-02-24 13:31] LABS: Metanephrine, Free <25 pg/mL (< OR = 57); Normetanephrine, Free 83 pg/mL (< OR = 148); Total, Free (MN + NMN) 83 pg/mL (< OR = 205)
== END 2020-02-22 18:30 | disposition short-term general hospital (02) | DRG 641 ==
LOC: EC 11:26 → 1SOBS 13:37 → 3SCARD 16:27 → OBSVTOIN 02-20 13:40
PROVIDERS: ADMIT Family Medicine; ATTEND Family Medicine
DX: E87.6 Hypokalemia (principal); S37.39XA Other injury of urethra, initial encounter; E11.65 Type 2 diabetes mellitus with hyperglycemia; E83.39 Other disorders of phosphorus metabolism; G47.00 Insomnia, unspecified; H91.90 Unspecified hearing loss, unspecified ear; I11.9 Hypertensive heart disease without heart failure; I45.10 Unspecified right bundle-branch block; Z87.01 Personal history of pneumonia (recurrent); K59.00 Constipation, unspecified; N40.0 Benign prostatic hyperplasia without lower urinary tract symptoms; R31.0 Gross hematuria; T50.0X5A Adverse effect of mineralocorticoids and their antagonists, initial encounter; T50.2X5A Adverse effect of carbonic-anhydrase inhibitors, benzothiadiazides and other diuretics, initial encounter; G72.49 Other inflammatory and immune myopathies, not elsewhere classified; Z74.1 Need for assistance with personal care; Z88.0 Allergy status to penicillin; E26.9 Hyperaldosteronism, unspecified; E66.9 Obesity, unspecified; Z68.27 Body mass index [BMI] 27.0-27.9, adult; Z79.84 Long term (current) use of oral hypoglycemic drugs; Z79.899 Other long term (current) drug therapy; Z83.3 Family history of diabetes mellitus; Z87.891 Personal history of nicotine dependence; Z91.81 History of falling; R94.6 Abnormal results of thyroid function studies
CPT/HCPCS: 36415; 70450; 71046; 72158; 80048; 80053; 81001; 82088; 82330; 82533; 82550; 83519; 83735; 83835; 84100; 84132; 84244; 84439; 84443; 85025; 85610; 85652; 85730; 86038; 86140; 86431; 86618; 87390; 93005; 93308; 93970; 96365; 99291

== ENCOUNTER 2020-04-11 09:36 | Day surgery (SDC) | payer BC, MEDICARE ==
[2020-04-10 12:29] VITALS: BMI 26.0
[~2020-04-11 09:36] MED LIST: ALBUTEROL NEB (CONC) 2.5 MG/0.5 ML INHALATION ONE; ATROPINE SULFATE 0.4 MG/ML 1 ML VIAL IM ONE; LIDOCAINE 1% (10MG/ML) FOR IV START INTRADERMA PRN; LIDOCAINE 2% (PF) 20 MG/ML 5 ML VIAL INHALATION ONE; LIDOCAINE VISCOUS 300 MG/15 ML CUP MUCOUS MEM ONE; MIDAZOLAM 2 MG/2 ML VIAL IV PRN; SODIUM CHLORIDE 0.9% 1,000 ML IV SCH; fentaNYL (PF) 50 MCG/ML 2 ML AMP IV PRN
[2020-04-11 10:30] VITALS: RESP 16
[2020-04-11 10:40] LABS: Glucose,Whole Blood 162 mg/dL (75-99)
[2020-04-11] MEDS: LACTATED RINGERS 1,000 ML IV SCH ×2 (10:50→12:00)
--- NOTE | 2020-04-11 11:56 | CT ---
EXAMINATION TYPE: CT Chest paras Campos Protocol DATE OF EXAM: 04/11/2020 COMPARISON: Chest x-ray February 18, 2020. HISTORY: Preprocedural CT DLP: 528 mGycm Automated exposure control for dose reduction was used. CT thorax without contrast with full inspirat ion and expiration images. FINDINGS: Exam is for bronchoscopy planning and not for diagnostic purposes. [id number] linear scarring b ilaterally is redemonstrated. Right hilar fullness noted. Coronary artery calcifications seen. 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 Occasional colonic diverticula. Multilevel spurring in the spine. There is additional anterior inferior left upper lobe 1.5 cm nodule axial image 21. There is dermal-based low dense lesion anterior left chest axilla image 24 at nearly 2.0 cm long axis. IMPRESSION: As above.
[2020-04-11] MEDS ORDERED: GLYCOPYRROLATE 0.2 MG/ML 2 ML VIAL ONE (12:02)
[2020-04-11] MEDS ORDERED: LIDOCAINE 1% INJ 10MG/ML (20 ML MDV) ONE (12:02)
[2020-04-11] MEDS ORDERED: SUCCINYLCHOLINE CHLORIDE 100 MG/5 ML SYR IV ONE (12:02)
[2020-04-11] MEDS ORDERED: PROPOFOL 10 MG/ML 20 ML VIAL IV ONE (12:02)
[2020-04-11 13:21] VITALS: TEMP 97.4
[2020-04-11 13:39] LABS: Glucose,Whole Blood 143 mg/dL (75-99)
--- NOTE | 2020-04-11 13:49 | XR ---
EXAMINATION TYPE: XR chest 1V portable DATE OF EXAM: 04/11/2020 COMPARISON: Chest CT earlier today. Chest x-ray February 18, 2020. HISTORY: Postbronchoscopy. TECHNIQUE: Single AP portable frontal upright view of the chest is obtained. FINDINGS: There is no pneumothorax after recent bronchoscopy. Low lung volumes redemonstrated. Sligh tly more prominent left basilar opacity favors atelectatic change. Cardiac silhouette size is stabl e and within normal limits. The osseous structures are intact. IMPRESSION: As above.
[2020-04-11 14:29] VITALS: BP 159/84; PULSE 54
[2020-04-11 18:12] LABS: Appearance,BF Bloody; Color,BF Red; Nucleated Cells, Body Fluid 67 /uL
[2020-04-11 18:13] LABS: RBC, Body Fluid 115800 /uL
[2020-04-11 20:37] LABS: Mononuclear WBC,Body Fluid 42 %; Polynuclear WBC,Body Fluid 58 %; Total Cells Counted,Body Fluid 50
--- NOTE | 2020-04-12 04:21 | PCN ---
PROCEDURE NOTE PULMONARY/CRITICAL CARE PROCEDURE NOTE: PROCEDURE: Navigational bronchoscopy. PREOPERATIVE DIAGNOSIS: Rule out lung cancer. POSTOPERATIVE DIAGNOSIS: Rule out lung cancer. OPERATORS: Dr. Alvarado, Dr. Suggs and Leandra Cruz. DESCRIPTION OF PROCEDURE: The patient's procedure was done endoscopy suite #1 under general anesthesia. Anesthesia services provided general anesthesia with informed consent and universal timeout. The patient was sedated and anesthetized as per anesthesia protocol. Once the patient was properly anesthetized, the bronchoscope was inserted through the bronchoscope adapter connected to the endotracheal tube. There were 2 lesions noted of significance. One was in the right upper lobe and one was in the left upper lobe. We attempted under the [employer] navigational system to assess the lesion in the left upper lobe. Unfortunately, the equipment malfunctioned and we were not able to do biopsies of the left upper lobe lesion using the navigational system. Subsequent to that, we went after lesions in the right upper lobe. 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 We did brushes, endobronchial and transbronchial biopsies as well as washes in the right upper lobe. There was some minimal bleeding. The blood was probably less than 5 mL. The patient tolerated the procedure well. Once all the sampling had been performed and once we ensured hemostasis, the bronchoscope was withdrawn. There was no immediate complication. The patient will be recovered in the recovery area. Additional recommendations and suggestions are forthcoming. Specimens were sent to the laboratory for analysis. All the specimens were from the right upper lobe. No additional recommendations are made. MMODL / IJN: [id number] /
== END 2020-04-11 14:53 | disposition home or self-care (01) ==
LOC: ORWHC2ENDO 09:36
PROVIDERS: ATTEND Internal Medicine Critical Care Medicine
DX: C34.11 Malignant neoplasm of upper lobe, right bronchus or lung (principal); J18.9 Pneumonia, unspecified organism; I10 Essential (primary) hypertension; E11.42 Type 2 diabetes mellitus with diabetic polyneuropathy; M51.36 Other intervertebral disc degeneration, lumbar region; N40.0 Benign prostatic hyperplasia without lower urinary tract symptoms; M62.81 Muscle weakness (generalized); E66.9 Obesity, unspecified; Z68.25 Body mass index [BMI] 25.0-25.9, adult; Z99.3 Dependence on wheelchair; M50.10 Cervical disc disorder with radiculopathy, unspecified cervical region; G56.20 Lesion of ulnar nerve, unspecified upper limb; Z83.3 Family history of diabetes mellitus; Z82.49 Family history of ischemic heart disease and other diseases of the circulatory system; Z79.4 Long term (current) use of insulin; Z79.899 Other long term (current) drug therapy; Z88.0 Allergy status to penicillin
CPT/HCPCS: 31625; 88104; 88108; 88305; 89050; 71045; 71250; 31623; 31624; 31627; J2001; J0330; J2704; 88341; 88342

== ENCOUNTER 2020-04-25 13:27 | Inpatient (IN) | payer BC, MEDICARE ==
--- NOTE | 2020-04-25 14:34 | ED ---
General Adult HPI - General Source: patient, EMS, RN notes reviewed, old records reviewed Mode of arrival: EMS Limitations: no limitations <Sanjay Fan - Last Filed: 04/25/20 15:09> <Andres Dickerson - Last Filed: 04/25/20 16:14> - General Chief complaint: Recheck/Abnormal Lab/Rx Stated complaint: Abnormal Labs Time Seen by Provider: 04/25/20 13:35 - History of Present Illness Initial comments: This is a 64-year-old male who has a past medical history significant for metastatic lung cancer. Patient has left-sided weakness secondary to cancer per the . Patient comes in today because she's been feeling weak and lightheaded. Patient went in to see his oncologist and they charlette labs and told him that his potassium was critically low and sent him to the hospital. He did not have a value or the lab printout for the potassium. Patient denies any chest pain shortness of breath or difficulty breathing. Patient denies any recent fever chills per patient denies any headache. Patient denies any syncopal episode. Patient denies any abdominal pain patient denies nausea vomiting diarrhea. (Sanjay Fan) - Related Data Home Medications Medication Instructions Recorded Confirmed Tamsulosin HCl [Flomax] 0.4 mg PO HS 01/26/20 04/11/20 Insulin Glargine [Lantus] 20 unit SQ HS 04/10/20 04/11/20 Losartan [Cozaar] 100 mg PO QAM 04/10/20 04/11/20 Sennosides [Senna] 8.6 mg PO BID 04/10/20 04/11/20 Previous Rx's Medication Instructions Recorded amLODIPine [Norvasc] 5 mg PO BID 30 Days #60 tab 01/29/20 carvediloL [Coreg*] 12.5 mg PO BID-W/MEALS #60 tab 02/21/20 Allergies Allergy/AdvReac Type Severity Reaction Status Date / Time Penicillins Allergy Rash/Hives Verified 04/25/20 13:33 Review of Systems ROS Other: All systems not noted in ROS Statement are negative. <Sanjay Fan - Last Filed: 04/25/20 15:09> ROS Other: All systems not noted in ROS Statement are negative. <Andres Dickerson - Last Filed: 04/25/20 16:14> ROS Statement: Those systems with pertinent positive or pertinent negative responses have been documented in the HPI. Past Medical History Past Medical History: Diabetes Mellitus, Hearing Disorder / Deafness, Hyperlipidemia, Hypertension, Osteoarthritis (OA), Sleep Apnea/CPAP/BIPAP Additional Past Medical History / Comment(s): Enlarged prostate. I have a disease, not sure of the name but causes numbness, tingling and weakness in legs and arms, use a wheelcahir. No CPAP use. Tinnitus. History of Any Multi-Drug Resistant Organisms: None Reported Past Surgical History: No Surgical Hx Reported Additional Past Surgical History / Comment(s): "Had some muscle taken out of left thigh area for testing". Past Anesthesia/Blood Transfusion Reactions: No Reported Reaction Past Psychological History: No Psychological Hx Reported Smoking Status: Never smoker Past Alcohol Use History: None Reported Past Drug Use History: None Reported - Past Family History Mother Family Medical History: No Reported History <Sanjay Fan - Last Filed: 04/25/20 15:09> General Exam Limitations: no limitations <Sanjay Fan - Last Filed: 04/25/20 15:09> - General Exam Comments Initial Comments: GENERAL: Patient is well-developed and well-nourished. Patient is nontoxic and well- hydrated and is in mild distress. ENT: Neck is soft and supple. No significant lymphadenopathy is noted. Oropharynx is clear. Moist mucous membranes. Neck has full range of motion without eliciting any pain. EYES: The sclera were anicteric and conjunctiva were pink and moist. Extraocular mo vements were intact and pupils were equal round and reactive to light. Eyelids were unremarkable. PULMONARY: Unlabored respirations. Good breath sounds bilaterally. No audible rales rhonchi or wheezing was noted. CARDIOVASCULAR: There is a regular rate and rhythm without any murmurs gallops or rubs. ABDOMEN: Soft and nontender with normal bowel sounds. No palpable organomegaly was noted. There is no palpable pulsatile mass. SKIN: Skin is clear with no lesions or rashes and otherwise unremarkable. NEUROLOGIC: Patient is alert and oriented x3. Cranial nerves II through XII are grossly intact. Patient has significant left leg weakness patient's right leg is weak but not as significant as left. MUSCULOSKELETAL: Normal extremities with adequate strength and full range of motion. LYMPHATICS: No significant lymphadenopathy is noted PSYCHIATRIC: Normal psychiatric evaluation. (Sanjay Fan) Course Vital Signs 04/25/20 04/25/20 04/25/20 13:32 13:33 13:43 Temperature 98.1 F Pulse Rate 58 L Pulse Rate [ 54 L Apical] Respiratory 16 Rate Blood Pressure 162/76 O2 Sat by Pulse 96 95 Oximetry 04/25/20 04/25/20 04/25/20 14:00 14:30 16:02 Temperature Pulse Rate 55 L 60 51 L Pulse Rate [ Apical] Respiratory 17 17 16 Rate Blood Pressure 157/94 153/79 174/74 O2 Sat by Pulse 94 L 96 96 Oximetry Medical Decision Making - Lab Data Result diagrams: 04/25/20 14:33 <Sanjay Fan - Last Filed: 04/25/20 15:09> - Lab Data Result diagrams: 04/25/20 14:33 04/25/20 14:33 <Andres Dickerson - Last Filed: 04/25/20 16:14> - Medical Decision Making EKG shows sinus bradycardia at a rate of 54 bpm patient is having an occasional PAC WA interval is 142 QRS is 144 QT interval 558 QTC is 510. There is some slight ST segment depression in the precordial leads Dr. Dickerson be taking over the care of this patient at 3 PM (Sanjay Fan) Patient reexamined and reevaluated by myself, Dr. Dickerson. Patient resting com fortably in bed. Patient and family updated on results and plan. Case was less than detail with Dr. Newsome, who will admit his patient. (Andres Dickerson) - Lab Data Lab Results 04/25/20 04/25/20 04/25/20 Range/Units 14:33 14:33 14:33 WBC 14.9 H (3.8-10.6) k/uL RBC 4.46 (4.30-5.90) m/uL Hgb 14.1 (13.0-17.5) gm/dL Hct 41.9 (39.0-53.0) % MCV 94.0 (80.0-100.0) fL MCH 31.7 (25.0-35.0) pg MCHC 33.7 (31.0-37.0) g/dL RDW 14.3 (11.5-15.5) % Plt Count 111 L (150-450) k/uL Neutrophils % 91 % Lymphocytes % 3 % Monocytes % 5 % Eosinophils % 0 % Basophils % 0 % Neutrophils # 13.6 H (1.3-7.7) k/uL Lymphocytes # 0.5 L (1.0-4.8) k/uL Monocytes # 0.7 (0-1.0) k/uL Eosinophils # 0.1 (0-0.7) k/uL Basophils # 0.0 (0-0.2) k/uL Sodium 137 (137-145) mmol/L Potassium 1.8 L* (3.5-5.1) mmol/L Chloride 90 L (98-107) mmol/L Carbon Dioxide 41 H* (22-30) mmol/L Anion Gap 6 mmol/L BUN 36 H (9-20) mg/dL Creatinine 0.52 L (0.66-1.25) mg/dL Est GFR (CKD-EPI)AfAm >90 (>60 ml/min/1.73 sqM) Est GFR (CKD-EPI)NonAf >90 (>60 ml/min/1.73 sqM) Glucose 281 H (74-99) mg/dL Calcium 8.0 L (8.4-10.2) mg/dL Magnesium 1.7 (1.6-2.3) mg/dL Total Bilirubin 1.2 (0.2-1.3) mg/dL AST 39 (17-59) U/L ALT 67 H (4-49) U/L Alkaline Phosphatase 110 (38-126) U/L Troponin I 0.098 H* (0.000-0.034) ng/mL Total Protein 5.0 L (6.3-8.2) g/dL Albumin 2.8 L (3.5-5.0) g/dL Disposition <Sanjay Fan - Last Filed: 04/25/20 15:09> Is patient prescribed a controlled substance at d/c from ED?: No Decision Time: 16:14 <Andres Dickerson - Last Filed: 04/25/20 16:14> Clinical Impression: Hypokalemia Disposition: ADMITTED IP TO THIS HOSP Condition: Serious Referrals: Matt Snowden MD [Primary Care Provider] - 1-2 days
[2020-04-25 14:51] LABS: Basophils % (A) 0 %; Eosinophils # (A) 0.1 k/uL (0-0.7); Eosinophils % (A) 0 %; HCT 41.9 % (39.0-53.0); HGB 14.1 gm/dL (13.0-17.5); Lymphocytes # (A) 0.5 k/uL (1.0-4.8); Lymphocytes % (A) 3 %; MCH 31.7 pg (25.0-35.0); MCHC 33.7 g/dL (31.0-37.0); Mean Platelet Volume 8.7; Monocytes # (A) 0.7 k/uL (0-1.0); Monocytes % (A) 5 %; Neutrophils # (A) 13.6 k/uL (1.3-7.7); Neutrophils % (A) 91 %; Platelet Count 111 k/uL (150-450); RBC 4.46 m/uL (4.30-5.90); RDW 14.3 % (11.5-15.5); WBC 14.9 k/uL (3.8-10.6)
[2020-04-25 14:59] LABS: ALT 67 U/L (4-49); AST 39 U/L (17-59); African American GFR (CKD) >90 (>60 ml/min/1.73 sqM); Albumin 2.8 g/dL (3.5-5.0); Alkaline Phosphatase 110 U/L (38-126); Blood Urea Nitrogen 36 mg/dL (9-20); Chloride 90 mmol/L (98-107); Glucose 281 mg/dL (74-99); Magnesium 1.7 mg/dL (1.6-2.3); Non-African American GFR(CKD) >90 (>60 ml/min/1.73 sqM); Sodium 137 mmol/L (137-145); Total Bilirubin 1.2 mg/dL (0.2-1.3)
[2020-04-25 15:22] LABS: Anion Gap 6 mmol/L
[2020-04-25 15:28] LABS: Carbon Dioxide 41 mmol/L (22-30); Potassium 1.8 mmol/L (3.5-5.1)
[2020-04-25] MEDS ORDERED: POTASSIUM CHLORIDE ER 20 MEQ TAB.ER PO STA ×3 (15:32→23:04)
[2020-04-25] MEDS ORDERED: POTASSIUM CHLORIDE 20 MEQ in WATER FOR INJECTION 1 100ML.BAG IVPB STA (15:34)
[2020-04-25] MEDS ORDERED: Potassium Replacement Protocol 1 EACH MISC MISCELLANE PRN (16:09)
[2020-04-25] MEDS ORDERED: NALOXONE 0.4 MG/ML 1 ML VIAL IV PRN (16:16)
[2020-04-25] MEDS ORDERED: HYDROcodone/APAP 5-325MG 1 EACH TAB PO PRN (18:52)
[2020-04-25 20:22] LABS: Glucose,Whole Blood 386 mg/dL (75-99)
[2020-04-25] MEDS: carvediloL 12.5 MG TAB PO SCH (20:26)
[2020-04-25] MEDS: TAMSULOSIN 0.4 MG CAP.ER.24H PO SCH (20:26)
[2020-04-25] MEDS: 0.9% NACL WITH KCL 20 MEQ/L 1,000 ML IV SCH (20:26)
[2020-04-25] MEDS: INSULIN DETEMIR (LEVEMIR) 100 UNIT/ML SYR SQ SCH (20:27)
[2020-04-25] MEDS: INSULIN ASPART (NovoLOG) 100 UNIT/ML VIAL SQ SCH (20:27)
[2020-04-26] MEDS: POTASSIUM CHLORIDE ER 20 MEQ TAB.ER PO SCH ×5 (02:23→12:31)
[2020-04-26 06:03] LABS: Glucose,Whole Blood 209 mg/dL (75-99)
[2020-04-26] MEDS: SENNOSIDES 8.6 MG TAB PO SCH ×2 (06:42→17:06)
[2020-04-26] MEDS: carvediloL 12.5 MG TAB PO SCH ×2 (06:42→17:09)
[2020-04-26] MEDS: INSULIN ASPART (NovoLOG) 100 UNIT/ML VIAL SQ SCH ×4 (06:42→20:52)
[2020-04-26] MEDS ORDERED: carvediloL 12.5 MG TAB PO SCH (07:30)
[2020-04-26] MEDS: LOSARTAN 50 MG TAB PO SCH (08:04)
[2020-04-26] MEDS: amLODIPine 5 MG TAB PO SCH (08:04)
[2020-04-26 08:56] LABS: African American GFR (CKD) >90 (>60 ml/min/1.73 sqM); Blood Urea Nitrogen 29 mg/dL (9-20); Chloride 99 mmol/L (98-107); Glucose 101 mg/dL (74-99); Magnesium 1.8 mg/dL (1.6-2.3); Non-African American GFR(CKD) >90 (>60 ml/min/1.73 sqM); Potassium 2.8 mmol/L (3.5-5.1); Sodium 144 mmol/L (137-145)
[2020-04-26 09:06] LABS: Anion Gap 3 mmol/L
[2020-04-26 09:07] LABS: Carbon Dioxide 42 mmol/L (22-30)
[2020-04-26] MEDS: MAGNESIUM SULFATE-D5W PMX 1 GM in DEXTROSE/WATER 1 100ML.BAG IVPB SCH ×2 (09:30→10:27)
--- NOTE | 2020-04-26 09:33 | ECHOF ---
Referral Reason:Abnormal troponin MEASUREMENTS -------- HEIGHT: 180.3 cm WEIGHT: 71.2 kg BP: 151/78 IVSd: 1.4 cm (0.6 - 1.1) LVIDd: 4.7 cm (3.9 - 5.3) LVPWd: 1.3 cm (0.6 - 1.1) IVSs: 1.2 cm LVIDs: 2.7 cm LVPWs: 1.4 cm Ao Diam: 3.1 cm (2.0 - 3.7) AV Cusp: 2.0 cm (1.5 - 2.6) LA Diam: 3.8 cm (2.7 - 3.8) MV EXCURSION: 18.742 mm (> 18.000) MV EF SLOPE: 51 mm/s (70 - 150) EPSS: 1.8 cm MV E Roger: 0.86 m/s MV DecT: 285 ms MV A Roger: 0.83 m/s MV E/A Ratio: 1.05 RAP: 5.00 mmHg RVSP: 8.27 mmHg FINDINGS -------- Sinus rhythm. This was a technically difficult study with suboptimal views. The left ventricular size is normal. There is mild concentric left ventricular hypertrophy. Overa ll left ventricular systolic function is normal with, an EF between 55 - 60 %. The RV was not well visualized. The left atrial size is normal. The right atrium was not well visualized. Lumason used The aortic valve was not well visualized. The mitral valve was not well visualized. There is trace mitral regurgitation. The tricuspid valve was not well visualized. Trace tricuspid regurgitation present. Right ventric ular systolic pressure is normal at < 35 mmHg. The pulmonic valve was not well visualized. The aortic root size is normal. IVC Not well visulized. There is no pericardial effusion. CONCLUSIONS -------- 1. This was a technically difficult study with suboptimal views. 2. There is mild concentric left ventricular hypertrophy. 3. Overall left ventricular systolic function is normal with, an EF between 55 - 60 %. 4. There is trace mitral regurgitation. 5. Trace tricuspid regurgitation present. 6. There is no pericardial effusion. ALARM INSTALLER: Franchesca Klein RDCS
[2020-04-26] MEDS: SPIRONOLACTONE 25 MG TAB PO SCH (10:27)
--- NOTE | 2020-04-26 11:15 | P.CONS ---
History of Present Illness - Reason for Consult Consult date: 04/26/20 wound care - History of Present Illness this is a 64-year-old patient with a history of metastatic lung cancer with left-sided weakness secondary to cancer.diabetes mellitus, high cholesterol, hypertension, steoporosis arthritis, BPH. ppatient has been in and out of the hospital for the last few months. He has developed a stage II pressure injury to the right and left gluteus. He has been seen by home care who was giving him a special dressing that'll correctly 3 weeks to get. Patient is unsure of the name of the dressing that he was utilizing. Patient has tenderness to the site. He does not use any offloading devices such as a Roho cushion or an overlay for his hospital bed. Review of Systems Review Of Systems: Constitutional: No fever, no chills, no night sweats. No weight change. No weakness, fatigue or lethargy. No daytime sleepiness. Integumentary:reports wounds, no lesions. No rash or pruritus. No unusual bruising. No change in hair or nails. Past Medical History Past Medical History: Diabetes Mellitus, Hearing Disorder / Deafness, Hyperlipidemia, Hypertension, Osteoarthritis (OA) Additional Past Medical History / Comment(s): Enlarged prostate. I have a disease, not sure of the name but causes numbness, tingling and weakness in legs and arms, use a wheelcahir. No CPAP use. Tinnitus. History of Any Multi-Drug Resistant Organisms: None Reported Past Surgical History: No Surgical Hx Reported Additional Past Surgical History / Comment(s): "Had some muscle taken out of left thigh area for testing". Past Anesthesia/Blood Transfusion Reactions: No Reported Reaction Past Psychological History: No Psychological Hx Reported Smoking Status: Never smoker Past Alcohol Use History: None Reported Past Drug Use History: None Reported - Past Family History Mother Family Medical History: No Reported History Medications and Allergies Home Medications Medication Instructions Recorded Confirmed Type Tamsulosin HCl [Flomax] 0.4 mg PO HS 01/26/20 04/25/20 History Insulin Glargine [Lantus] 20 unit SQ HS 04/10/20 04/25/20 History Sennosides [Senna] 8.6 mg PO AC-BID 04/10/20 04/25/20 History Losartan Potassium 100 mg PO DAILY 04/25/20 04/25/20 History amLODIPine [Norvasc] 5 mg PO DAILY 04/25/20 04/25/20 History carvediloL [Coreg*] 12.5 mg PO AC-BID 04/25/20 04/25/20 History Allergies Allergy/AdvReac Type Severity Reaction Status Date / Time Penicillins Allergy Rash/Hives Verified 04/25/20 16:25 Physical Exam Vitals: Vital Signs Temp Pulse Pulse Pulse Resp BP BP 04/26/20 08:00 97.8 F 59 L 15 116/69 04/26/20 04:00 60 20 151/78 04/26/20 00:00 63 18 154/74 04/25/20 20:00 97.9 F 66 20 133/70 04/25/20 17:00 73 20 152/95 04/25/20 16:48 48 L 19 161/82 04/25/20 16:30 52 L 18 179/87 04/25/20 16:02 51 L 16 174/74 04/25/20 16:00 66 18 136/76 04/25/20 15:30 68 20 153/86 04/25/20 14:30 60 17 153/79 04/25/20 14:00 55 L 17 157/94 04/25/20 13:43 54 L 04/25/20 13:33 98.1 F 58 L 16 162/76 04/25/20 13:32 Pulse Ox 04/26/20 08:00 95 04/26/20 04:00 92 L 04/26/20 00:00 94 L 04/25/20 20:00 94 L 04/25/20 17:00 96 04/25/20 16:48 95 04/25/20 16:30 98 04/25/20 16:02 96 04/25/20 16:00 96 04/25/20 15:30 96 04/25/20 14:30 96 04/25/20 14:00 94 L 04/25/20 13:43 04/25/20 13:33 95 04/25/20 13:32 96 Intake and Output 04/25/20 04/26/20 04/26/20 22:59 06:59 14:59 Intake Total 400 100 Output Total 300 Balance 400 -300 100 Intake: Oral 400 100 Output: Urine 300 Other: Voiding Method Urinal Urinal Urinal # Voids 2 2 # Bowel Movements 1 Weight 90 kg 71.5 kg Physical exam: General Appearance: Alert, cooperative, no distress, appears stated age. Skin: lleft gluteus is a full-thickness pressure ulcer stage II with fat layer exposure measuring approximately 0.4 x 0.6 x 0.2 cm with granulation seen throughout wound bed, minimal slough, wound edge appears to be attached to the wound base. The periwound shows erythema and maceration, ight gluteus ulcerations of full-thickness pressure ulcer stage II with fat layer exposure measuring approximately 0.3 x 0.4 x 0.1 cm granulation seen within the wound bed. Minimal slough noted, wound edge appears attached to the wound base. Periwound shows erythema and maceration.all other Skin color, texture, tugor normal, no rashes or lesions. Neurologic: Alert oriented x3 Results CBC & Chem 7: 04/25/20 14:33 04/26/20 08:12 Labs: Abnormal Lab Results - Last 24 Hours (Table) 04/25/20 04/25/20 04/25/20 Range/Units 14:33 14:33 14:33 WBC 14.9 H (3.8-10.6) k/uL Plt Count 111 L (150-450) k/uL Neutrophils # 13.6 H (1.3-7.7) k/uL Lymphocytes # 0.5 L (1.0-4.8) k/uL Potassium 1.8 L* (3.5-5.1) mmol/L Chloride 90 L (98-107) mmol/L Carbon Dioxide 41 H* (22-30) mmol/L BUN 36 H (9-20) mg/dL Creatinine 0.52 L (0.66-1.25) mg/dL Glucose 281 H (74-99) mg/dL POC Glucose (mg/dL) (75-99) mg/dL Calcium 8.0 L (8.4-10.2) mg/dL ALT 67 H (4-49) U/L Troponin I 0.098 H* (0.000-0.034) ng/mL Total Protein 5.0 L (6.3-8.2) g/dL Albumin 2.8 L (3.5-5.0) g/dL 04/25/20 04/25/20 04/25/20 Range/Units 18:58 18:58 20:21 WBC (3.8-10.6) k/uL Plt Count (150-450) k/uL Neutrophils # (1.3-7.7) k/uL Lymphocytes # (1.0-4.8) k/uL Potassium 2.2 L* (3.5-5.1) mmol/L Chloride (98-107) mmol/L Carbon Dioxide (22-30) mmol/L BUN (9-20) mg/dL Creatinine (0.66-1.25) mg/dL Glucose (74-99) mg/dL POC Glucose (mg/dL) 386 H (75-99) mg/dL Calcium (8.4-10.2) mg/dL ALT (4-49) U/L Troponin I 0.090 H* (0.000-0.034) ng/mL Total Protein (6.3-8.2) g/dL Albumin (3.5-5.0) g/dL 04/25/20 04/25/20 04/26/20 Range/Units 22:04 22:04 06:02 WBC (3.8-10.6) k/uL Plt Count (150-450) k/uL Neutrophils # (1.3-7.7) k/uL Lymphocytes # (1.0-4.8) k/uL Potassium 2.2 L* (3.5-5.1) mmol/L Chloride (98-107) mmol/L Carbon Dioxide (22-30) mmol/L BUN (9-20) mg/dL Creatinine (0.66-1.25) mg/dL Glucose (74-99) mg/dL POC Glucose (mg/dL) 209 H (75-99) mg/dL Calcium (8.4-10.2) mg/dL ALT (4-49) U/L Troponin I 0.087 H* (0.000-0.034) ng/mL Total Protein (6.3-8.2) g/dL Albumin (3.5-5.0) g/dL 04/26/20 Range/Units 08:12 WBC (3.8-10.6) k/uL Plt Count (150-450) k/uL Neutrophils # (1.3-7.7) k/uL Lymphocytes # (1.0-4.8) k/uL Potassium 2.8 L (3.5-5.1) mmol/L Chloride (98-107) mmol/L Carbon Dioxide 42 H* (22-30) mmol/L BUN 29 H (9-20) mg/dL Creatinine 0.39 L (0.66-1.25) mg/dL Glucose 101 H (74-99) mg/dL POC Glucose (mg/dL) (75-99) mg/dL Calcium 8.0 L (8.4-10.2) mg/dL ALT (4-49) U/L Troponin I (0.000-0.034) ng/mL Total Protein (6.3-8.2) g/dL Albumin (3.5-5.0) g/dL Assessment and Plan (1) Pressure ulcer of sacral region, stage 2 Current Visit: Yes Status: Acute Code(s): L89.152 - PRESSURE ULCER OF SACRAL REGION, STAGE 2 SNOMED Code(s): 188847148 (2) Diabetes mellitus with skin ulcer Current Visit: Yes Status: Acute Code(s): E11.622 - TYPE 2 DIABETES MELLITUS WITH OTHER SKIN ULCER; L98.499 - NON-PRESSURE CHRONIC ULCER OF SKIN OF SITES W UNSP SEVERITY SNOMED Code(s): 51765287 Plan: apply honey alginate, family moistened gauze, foam border gauze. Change Thursday. Utilize [facility] for appropriate services. May consider a overlay mattress for at home. Patient would benefit from a Roho cushion.. Insurance may cover this since he is wheelchair-bound however if they do not he may purchase from [employer]. Discussed with patient outpatient wound care however at this time he is not ready for that. Information was given. Thank you kindly for the consultation any questions contact the wound care center DNP note has been reviewed and discussed with Dr. Shaffer and the impression and plan of care has been directed as dictated.
--- NOTE | 2020-04-26 11:29 | P.CRDCN ---
History of Present Illness Consult date: 04/26/20 History of present illness: CHIEF COMPLAINT: Hypokalemia HISTORY OF PRESENT ILLNESS: This is a 64-year old male with a past medical history significant for hypertension, hyperlipidemia, diabetes mellitus, and recently diagnosed lung cancer. Patient was supposed to have an appointment in the office with Dr. Zamora but states he is unable to make it to the office. We have been asked to see the patient in consultation for hypokalemia. Patient was previously seen by cardiology earlier in the year and had low potassium levels at that time. He was started on Aldactone. He states his PCP took him off this medication but is is unable to recall why. He currently denies chest pain or pressure. Denies shortness of breath. DIAGNOSTICS: EKG reveals sinus rhythm with T-wave inversions V1 through V3 similar to previous EKG. QT prolongation. Echocardiogram reveals EF 55-60%, trace mitral regurgitation, and trace tricuspid regurgitation. Laboratory data: WBC 14.9. Hemoglobin 14.1. Platelet count 111. Sodium 144. Potassium 2.8. BUN 29. Creatinine 0.39. Magnesium 1.8. Troponin 0.098. 0.090. 0.087. Current home cardiac medications include Coreg 12.5 mg twice a day, Norvasc 5 mg daily, losartan 100 mg daily REVIEW OF SYSTEMS: At the time of my exam: CONSTITUTIONAL: Denies fever or chills. HEENT: Denies blurred vision, vision changes, or eye pain. Denies hemoptysis CARDIOVASCULAR: Denies chest pain, orthopnea, PND or palpitations RESPIRATORY: No shortness of breath. GASTROINTESTINAL: Denies abdominal pain. Denies nausea or vomiting. HEMATOLOGIC: Denies bleeding disorders. GENITOURINARY: Denies any blood in urine. SKIN: Denies pruitis. Denies rash. PHYSICAL EXAM: VITAL SIGNS: Reviewed. GENERAL: Well-developed in no acute distress. HEENT: Head is normocephalic. Pupils are equal, round. Sclerae anicteric. Mucous membranes of the mouth are moist. Neck supple. No JVD or thyromegaly LUNGS: Respirations even and unlabored. Lungs essentially clear to auscultation bilaterally. HEART: Regular rate and rhythm. S1 and S2 heard. ABDOMEN: Soft. Nondistended. Nontender. EXTREMITIES: Normal range of motion. No clubbing or cyanosis. Peripheral pulses intact. No lower extremity edema NEUROLOGIC: Awake and alert. Oriented x 3. ASSESSMENT: Hypokalemia Abnormal troponin, no evidence of acute coronary syndrome Recent diagnosis of lung cancer Hypertension PLAN: Replace potassium per protocol IV magnesium x 2 grams Add aldactone 25mg daily Further recommendations pending patient course Nurse practitioner note has been reviewed by physician. Signing provider agrees with the documented findings, assessment, and plan of care. Past Medical History Past Medical History: Diabetes Mellitus, Hearing Disorder / Deafness, Hyperl ipidemia, Hypertension, Osteoarthritis (OA) Additional Past Medical History / Comment(s): Enlarged prostate. I have a disease, not sure of the name but causes numbness, tingling and weakness in legs and arms, use a wheelcahir. No CPAP use. Tinnitus. History of Any Multi-Drug Resistant Organisms: None Reported Past Surgical History: No Surgical Hx Reported Additional Past Surgical History / Comment(s): "Had some muscle taken out of left thigh area for testing". Past Anesthesia/Blood Transfusion Reactions: No Reported Reaction Past Psychological History: No Psychological Hx Reported Smoking Status: Never smoker Past Alcohol Use History: None Reported Past Drug Use History: None Reported - Past Family History Mother Family Medical History: No Reported History Medications and Allergies Home Medications Medication Instructions Recorded Confirmed Type Tamsulosin HCl [Flomax] 0.4 mg PO HS 01/26/20 04/25/20 History Insulin Glargine [Lantus] 20 unit SQ HS 04/10/20 04/25/20 History Sennosides [Senna] 8.6 mg PO AC-BID 04/10/20 04/25/20 History Losartan Potassium 100 mg PO DAILY 04/25/20 04/25/20 History amLODIPine [Norvasc] 5 mg PO DAILY 04/25/20 04/25/20 History carvediloL [Coreg*] 12.5 mg PO AC-BID 04/25/20 04/25/20 History Allergies Allergy/AdvReac Type Severity Reaction Status Date / Time Penicillins Allergy Rash/Hives Verified 04/25/20 16:25 Physical Exam Vitals: Vital Signs Temp Pulse Pulse Pulse Resp BP BP 04/26/20 08:00 97.8 F 59 L 15 116/69 04/26/20 04:00 60 20 151/78 04/26/20 00:00 63 18 154/74 04/25/20 20:00 97.9 F 66 20 133/70 04/25/20 17:00 73 20 152/95 04/25/20 16:48 48 L 19 161/82 04/25/20 16:30 52 L 18 179/87 04/25/20 16:02 51 L 16 174/74 04/25/20 16:00 66 18 136/76 04/25/20 15:30 68 20 153/86 04/25/20 14:30 60 17 153/79 04/25/20 14:00 55 L 17 157/94 04/25/20 13:43 54 L 04/25/20 13:33 98.1 F 58 L 16 162/76 04/25/20 13:32 Pulse Ox 04/26/20 08:00 95 04/26/20 04:00 92 L 04/26/20 00:00 94 L 04/25/20 20:00 94 L 04/25/20 17:00 96 04/25/20 16:48 95 04/25/20 16:30 98 04/25/20 16:02 96 04/25/20 16:00 96 04/25/20 15:30 96 04/25/20 14:30 96 04/25/20 14:00 94 L 04/25/20 13:43 04/25/20 13:33 95 04/25/20 13:32 96 Intake and Output 04/25/20 04/26/20 04/26/20 22:59 06:59 14:59 Intake Total 400 100 Output Total 300 Balance 400 -300 100 Intake: Oral 400 100 Output: Urine 300 Other: Voiding Method Urinal Urinal Urinal # Voids 2 2 # Bowel Movements 1 Weight 90 kg 71.5 kg Results 04/25/20 14:33 04/26/20 08:12 Cardiac Enzymes 04/25/20 04/25/20 04/25/20 Range/Units 14:33 14:33 18:58 AST 39 (17-59) U/L Troponin I 0.098 H* 0.090 H* (0.000-0.034) ng/mL 04/25/20 Range/Units 22:04 AST (17-59) U/L Troponin I 0.087 H* (0.000-0.034) ng/mL CBC 04/25/20 Range/Units 14:33 WBC 14.9 H (3.8-10.6) k/uL RBC 4.46 (4.30-5.90) m/uL Hgb 14.1 (13.0-17.5) gm/dL Hct 41.9 (39.0-53.0) % Plt Count 111 L (150-450) k/uL Comprehensive Metabolic Panel 04/25/20 04/25/20 04/25/20 Range/Units 14:33 18:58 22:04 Sodium 137 (137-145) mmol/L Potassium 1.8 L* 2.2 L* 2.2 L* (3.5-5.1) mmol/L Chloride 90 L (98-107) mmol/L Carbon Dioxide 41 H* (22-30) mmol/L BUN 36 H (9-20) mg/dL Creatinine 0.52 L (0.66-1.25) mg/dL Glucose 281 H (74-99) mg/dL Calcium 8.0 L (8.4-10.2) mg/dL AST 39 (17-59) U/L ALT 67 H (4-49) U/L Alkaline Phosphatase 110 (38-126) U/L Total Protein 5.0 L (6.3-8.2) g/dL Albumin 2.8 L (3.5-5.0) g/dL 04/26/20 Range/Units 08:12 Sodium 144 (137-145) mmol/L Potassium 2.8 L (3.5-5.1) mmol/L Chloride 99 (98-107) mmol/L Carbon Dioxide 42 H* (22-30) mmol/L BUN 29 H (9-20) mg/dL Creatinine 0.39 L (0.66-1.25) mg/dL Glucose 101 H (74-99) mg/dL Calcium 8.0 L (8.4-10.2) mg/dL AST (17-59) U/L ALT (4-49) U/L Alkaline Phosphatase (38-126) U/L Total Protein (6.3-8.2) g/dL Albumin (3.5-5.0) g/dL Current Medications Generic Name Dose Route Start Last Admin Trade Name Freq PRN Reason Stop Dose Admin Hydrocodone Bitart/Acetaminophen 1 each 04/25/20 18:52 Hydrocodone/Apap 5-325mg 1 Each Tab PO Q6HR PRN Pain Amlodipine Besylate 5 mg 04/26/20 09:00 04/26/20 08:04 Amlodipine 5 Mg Tab PO 5 mg DAILY CLARENCE Administration Carvedilol 12.5 mg 04/25/20 18:52 04/26/20 06:42 Carvedilol 12.5 Mg Tab PO 12.5 mg AC-BID CLARENCE Administration Potassium Chloride/Sodium Chloride 1,000 mls @ 50 mls/hr 04/25/20 17:00 04/25/20 20:26 Ns-Kcl 20 Meq/L Iv Solution IV 50 mls/hr .Q20H CLARENCE Administration Insulin Aspart 0 unit 04/25/20 21:00 04/26/20 06:42 Insulin Aspart (Novolog) 100 Unit/Ml Vial SQ 3 unit ACHS CLARENCE Administration Protocol Insulin Detemir 20 unit 04/25/20 21:00 04/25/20 20:27 Insulin Detemir (Levemir) 100 Unit/Ml Syr SQ 20 unit HS CLARENCE Administration Losartan Potassium 100 mg 04/26/20 09:00 04/26/20 08:04 Losartan 50 Mg Tab PO 100 mg DAILY CLARENCE Administration Miscellaneous Information 1 each 04/25/20 16:09 Potassium Replacement Protocol 1 Each Misc MISCELLANE DAILY PRN Per Protocol Protocol Naloxone HCl 0.2 mg 04/25/20 16:16 Naloxone 0.4 Mg/Ml 1 Ml Vial IV Q2M PRN Opioid Reversal Potassium Chloride 20 meq 04/26/20 10:00 04/26/20 10:27 Potassium Chloride Er 20 Meq Tab.Er PO 04/26/20 12:01 20 meq Q1HR CLARENCE Administration Protocol Senna 8.6 mg 04/26/20 07:30 04/26/20 06:42 Sennosides 8.6 Mg Tab PO 8.6 mg AC-BID CL[facility]ENCE Administration Spironolactone 25 mg 04/26/20 10:00 04/26/20 10:27 Spironolactone 25 Mg Tab PO 25 mg DAILY CLARENCE Administration Tamsulosin HCl 0.4 mg 04/25/20 21:00 04/25/20 20:26 Tamsulosin 0.4 Mg Cap.Er.24h PO 0.4 mg HS CLARENCE Administration Intake and Output 1004/26/20 04/26/20 22:59 06:59 14:59 Intake Total 400 100 Output Total 300 Balance 400 -300 100 Intake: Oral 400 100 Output: Urine 300 Other: Voiding Method Urinal Urinal Urinal # Voids 2 2 # Bowel Movements 1 Weight 90 kg 71.5 kg 04/25/20 14:33 04/26/20 08:12
[2020-04-26 12:07] LABS: Glucose,Whole Blood 163 mg/dL (75-99)
--- NOTE | 2020-04-26 13:37 | P.CNPUL ---
History of Present Illness Consult date: 04/26/20 Requesting physician: Matt Snowden Reason for consult: abnormal CXR/CT Chief complaint: Generalized weakness History of present illness: This a very pleasant 64-year-old gentleman with a known history of diabetes mellitus, hyperlipidemia, hypertension, obstructive sleep apnea utilizing CPAP in the outpatient setting, hearing disorder. He is a lifelong nonsmoker. 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 He has not started any treatment yet. He has been seen by medical and radiation oncology. He was seen yesterday at the oncology office and lab work revealed a critical low sodium and he was referred to the emergency room. He was having complaints of generalized weakness and fatigue. Potassium level here was 1.8. He is seen today in consultation on the selective care unit. He is currently sitting up at the bedside. Awake and alert in no acute distress. He is still complaining of generalized weakness and fatigue. Still some shortness of breath on exertion. His potassium has been corrected to 2.8 currently. He has some lower extremity edema. 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 He had previously had a muscle biopsy due to his weakness prior to his diagnosis of small cell lung cancer. Currently receiving 0.9 chasity l saline with 20 mEq of Jennifer Ciel at 50 MLS per hour. He is on Aldactone. Echocardiogram revealed preserved left ventricular systolic function. EKG revealed sinus bradycardia with a right bundle branch block. Denies any shortness of breath. Maintaining O2 saturations in the mid 90s on room air. Review of Systems REVIEW OF SYSTEMS: CONSTITUTIONAL: Increasing generalized weakness more so on the left side. Denies any recent significant weight loss or weight gain. EYES: Denies change in vision. EARS, NOSE, MOUTH, THROAT: Denies headaches, denies sore throat. CARDIOVASCULAR: Denies chest pain, palpitations or syncopal episodes. RESPIRATORY: Denies shortness of breath, cough, congestion or hemoptysis. GASTROINTESTINAL: Denies change in appetite, denies abdominal pain GENITOURINARY: Denies hematuria, denies infections. MUSKULOSKELETAL: Denies pain, denies swelling. INTEGUMENTARY: Denies rash, denies eczema. NEUROLOGICAL: Denies recent memory loss, no recent seizure activity. PSYCHIATRIC: Denies anxiety, denies depression. HEMATOLOGIC/LYMPHATIC: Denies anemia, denies enlarged lymph nodes. Past Medical History Past Medical History: Diabetes Mellitus, Hearing Disorder / Deafness, Hyperlipidemia, Hypertension, Osteoarthritis (OA) Additional Past Medical History / Comment(s): Enlarged prostate. I have a disease, not sure of the name but causes numbness, tingling and weakness in legs and arms, use a wheelcahir. No CPAP use. Tinnitus. History of Any Multi-Drug Resistant Organisms: None Reported Past Surgical History: No Surgical Hx Reported Additional Past Surgical History / Comment(s): "Had some muscle taken out of left thigh area for testing". Past Anesthesia/Blood Transfusion Reactions: No Reported Reaction Past Psychological History: No Psychological Hx Reported Smoking Status: Never smoker Past Alcohol Use History: None Reported Past Drug Use History: None Reported - Past Family History Mother Family Medical History: No Reported History Medications and Allergies Home Medications Medication Instructions Recorded Confirmed Type Tamsulosin HCl [Flomax] 0.4 mg PO HS 01/26/20 04/25/20 History Insulin Glargine [Lantus] 20 unit SQ HS 04/10/20 04/25/20 History Sennosides [Senna] 8.6 mg PO AC-BID 04/10/20 04/25/20 History Losartan Potassium 100 mg PO DAILY 04/25/20 04/25/20 History amLODIPine [Norvasc] 5 mg PO DAILY 04/25/20 04/25/20 History carvediloL [Coreg*] 12.5 mg PO AC-BID 04/25/20 04/25/20 History Allergies Allergy/AdvReac Type Severity Reaction Status Date / Time Penicillins Allergy Rash/Hives Verified 04/25/20 16:25 Physical Exam Vitals: Vital Signs Temp Pulse Pulse Pulse Resp BP BP 04/26/20 08:00 97.8 F 59 L 15 116/69 04/26/20 04:00 60 20 151/78 04/26/20 00:00 63 18 154/74 04/25/20 20:00 97.9 F 66 20 133/70 04/25/20 17:00 73 20 152/95 04/25/20 16:48 48 L 19 161/82 04/25/20 16:30 52 L 18 179/87 04/25/20 16:02 51 L 16 174/74 04/25/20 16:00 66 18 136/76 04/25/20 15:30 68 20 153/86 04/25/20 14:30 60 17 153/79 04/25/20 14:00 55 L 17 157/94 04/25/20 13:43 54 L 04/25/20 13:33 98.1 F 58 L 16 162/76 04/25/20 13:32 Pulse Ox 04/26/20 08:00 95 04/26/20 04:00 92 L 04/26/20 00:00 94 L 04/25/20 20:00 94 L 04/25/20 17:00 96 04/25/20 16:48 95 04/25/20 16:30 98 04/25/20 16:02 96 04/25/20 16:00 96 04/25/20 15:30 96 04/25/20 14:30 96 04/25/20 14:00 94 L 04/25/20 13:43 04/25/20 13:33 95 04/25/20 13:32 96 Intake and Output 04/25/20 04/26/20 04/26/20 22:59 06:59 14:59 Intake Total 400 100 Output Total 300 Balance 400 -300 100 Intake: Oral 400 100 Output: Urine 300 Other: Voiding Method Urinal Urinal Urinal # Voids 2 2 0 # Bowel Movements 0 Weight 90 kg 71.5 kg GENERAL EXAM: Alert, active, 64 showed gentleman, on room air, resting comfortably in bed. HEAD: Normocephalic. EYES: Normal reaction of pupils, equal size. NOSE: Clear with pink turbinates. THROAT: No erythema or exudates. NECK: No masses, no JVD. CHEST: No chest wall deformity. LUNGS: Equal air entry with no crackles, wheeze, rhonchi or dullness. CVS: S1 and S2 normal with no audible murmur, regular rhythm. ABDOMEN: No hepatosplenomegaly, normal bowel sounds, no guarding or rigidity. SPINE: No scoliosis or deformity SKIN: No rashes CENTRAL NERVOUS SYSTEM: No focal deficits, tone is normal in all 4 extremities. EXTREMITIES: There is no peripheral edema. No clubbing, no cyanosis. Dora pheral pulses are intact. Results - Laboratory Findings CBC and BMP: 04/25/20 14:33 04/26/20 08:12 Abnormal lab findings: Abnormal Labs 04/25/20 04/25/20 04/25/20 14:33 14:33 14:33 WBC 14.9 H Plt Count 111 L Neutrophils # 13.6 H Lymphocytes # 0.5 L Potassium 1.8 L* Chloride 90 L Carbon Dioxide 41 H* BUN 36 H Creatinine 0.52 L Glucose 281 H POC Glucose (mg/dL) Calcium 8.0 L ALT 67 H Troponin I 0.098 H* Total Protein 5.0 L Albumin 2.8 L 04/25/20 04/25/20 04/25/20 18:58 18:58 20:21 WBC Plt Count Neutrophils # Lymphocytes # Potassium 2.2 L* Chloride Carbon Dioxide BUN Creatinine Glucose POC Glucose (mg/dL) 386 H Calcium ALT Troponin I 0.090 H* Total Protein Albumin 04/25/20 04/25/20 04/26/20 22:04 22:04 06:02 WBC Plt Count Neutrophils # Lymphocytes # Potassium 2.2 L* Chloride Carbon Dioxide BUN Creatinine Glucose POC Glucose (mg/dL) 209 H Calcium ALT Troponin I 0.087 H* Total Protein Albumin 04/26/20 04/26/20 08:12 12:05 WBC Plt Count Neutrophils # Lymphocytes # Potassium 2.8 L Chloride Carbon Dioxide 42 H* BUN 29 H Creatinine 0.39 L Glucose 101 H POC Glucose (mg/dL) 163 H Calcium 8.0 L ALT Troponin I Total Protein Albumin Assessment and Plan Assessment: 1 Generalized weakness and fatigue secondary to recurrent hypokalemia 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 Rachel Green from the pulmonary standpoint Obtain a chest x-ray Replace potassium Nephrology consult Oncology is following We will continue to follow and make further recommendations based on his c linical status I, the cosigning physician, performed a history & physical examination of the patient. Lungs sounds are clear. Maintaining good O2 saturations in the 90s on room air. I discussed the assessment and plan of care with my nurse practitioner, Mikayla Suggs. I attest to the above consultation as dictated by her. Time with Patient: Greater than 30
[2020-04-26 14:26] VITALS: BMI 21.9
[2020-04-26] MEDS: 0.9% NACL WITH KCL 20 MEQ/L 1,000 ML IV SCH (17:09)
[2020-04-26 17:14] LABS: Glucose,Whole Blood 215 mg/dL (75-99)
--- NOTE | 2020-04-26 18:42 | P.CONS ---
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 He developed significant generalized weakness to the point where he could not move at all. He was transferred to [facility], diagnosed with paraneoplastic syndrome, Eaton-Lambert syndrome. Brain MRI was negative. CT of the chest 03/08/20 revealed a 3.6 cm right suprahilar mass, 2.2 cm right hilar node and a 2.2 cm right pretracheal node. Staging PET scan 03/13/20 showed suspicious uptake in all the aformentioned areas, left and right adrenal gland did show some thickening and slightly increased uptake. 04/11/20 navigational bronchoscopy with transbronchial biopsy was positive for small cell lung cancer, CT scan that same day revealed a new 1.5 cm left upper lobe lesion. Patient has adapted fairly well to not having use of his lower extremities, he states that he still maintains sensation for bowels and bladder. No difficulty breathing, hemoptysis, pain. Pending insurance approval to start treatment. Review of Systems 14 point review of systems is negative except as stated in HPI Past Medical History Past Medical History: Cancer, Diabetes Mellitus, Hearing Disorder / Deafness, Hyperlipidemia, Hypertension, Osteoarthritis (OA) Additional Past Medical History / Comment(s): Enlarged prostate. I have a disease, not sure of the name but causes numbness, tingling and weakness in legs and arms, use a wheelcahir. No CPAP use. Tinnitus. History of Any Multi-Drug Resistant Organisms: None Reported Past Surgical History: No Surgical Hx Reported Additional Past Surgical History / Comment(s): "Had some muscle taken out of left thigh area for testing". Past Anesthesia/Blood Transfusion Reactions: No Reported Reaction Past Psychological History: No Psychological Hx Reported Smoking Status: Never smoker Past Alcohol Use History: None Reported Past Drug Use History: None Reported - Past Family History Mother Family Medical History: No Reported History Medications and Allergies Home Medications Medication Instructions Recorded Confirmed Type Tamsulosin HCl [Flomax] 0.4 mg PO HS 01/26/20 04/25/20 History Insulin Glargine [Lantus] 20 unit SQ HS 04/10/20 04/25/20 History Sennosides [Senna] 8.6 mg PO AC-BID 04/10/20 04/25/20 History Losartan Potassium 100 mg PO DAILY 04/25/20 04/25/20 History amLODIPine [Norvasc] 5 mg PO DAILY 04/25/20 04/25/20 History carvediloL [Coreg*] 12.5 mg PO AC-BID 04/25/20 04/25/20 History Allergies Allergy/AdvReac Type Severity Reaction Status Date / Time Penicillins Allergy Rash/Hives Verified 04/25/20 16:25 Physical Exam Vitals: Vital Signs Temp Pulse Pulse Pulse Resp BP BP 04/26/20 04:00 60 20 151/78 04/26/20 00:00 63 18 154/74 04/25/20 20:00 97.9 F 66 20 133/70 04/25/20 17:00 73 20 152/95 04/25/20 16:48 48 L 19 161/82 04/25/20 16:30 52 L 18 179/87 04/25/20 16:02 51 L 16 174/74 04/25/20 16:00 66 18 136/76 04/25/20 15:30 68 20 153/86 04/25/20 14:30 60 17 153/79 04/25/20 14:00 55 L 17 157/94 04/25/20 13:43 54 L 04/25/20 13:33 98.1 F 58 L 16 162/76 04/25/20 13:32 Pulse Ox 04/26/20 04:00 92 L 04/26/20 00:00 94 L 04/25/20 20:00 94 L 04/25/20 17:00 96 04/25/20 16:48 95 04/25/20 16:30 98 04/25/20 16:02 96 04/25/20 16:00 96 04/25/20 15:30 96 04/25/20 14:30 96 04/25/20 14:00 94 L 04/25/20 13:43 04/25/20 13:33 95 04/25/20 13:32 96 Intake and Output 04/25/20 04/26/20 04/26/20 22:59 06:59 14:59 Intake Total 400 Output Total 300 Balance 400 -300 Intake: Oral 400 Output: Urine 300 Other: Voiding Method Urinal Urinal # Voids 2 2 Weight 90 kg 71.5 kg - Constitutional General appearance: cooperative, no acute distress, obese - EENT Eyes: anicteric sclerae, EOMI ENT: hearing grossly normal, normal oropharynx - Neck Neck: no lymphadenopathy - Respiratory Respiratory: bilateral: CTA - Cardiovascular Rhythm: regular Heart sounds: normal: S1, S2 Abnormal Heart Sounds: no systolic murmur, no diastolic murmur, no rub, no S3 Gallop, no S4 Gallop, no click, no other leg Peripheral Edema: bilateral: Trace - Gastrointestinal General gastrointestinal: no absent bowel sounds, no decreased bowel sounds, no distended, no hepatomegaly, no hyperactive bowel sounds, normal bowel sounds, no organomegaly, no rigid, no scaphoid, soft, no splenomegaly, no tenderness, no umbilical hernia, no ventral hernia - Integumentary Integumentary: normal - Neurologic BLE 0 strength Neurologic: CNII-XII intact - Musculoskeletal BLE weakness - Psychiatric Psychiatric: A&O x's 3, appropriate affect, intact judgment & insight Results CBC & Chem 7: 04/25/20 14:33 04/26/20 08:12 Labs: Abnormal Lab Results - Last 24 Hours (Table) 04/25/20 04/25/20 04/25/20 Range/Units 14:33 14:33 14:33 WBC 14.9 H (3.8-10.6) k/uL Plt Count 111 L (150-450) k/uL Neutrophils # 13.6 H (1.3-7.7) k/uL Lymphocytes # 0.5 L (1.0-4.8) k/uL Potassium 1.8 L* (3.5-5.1) mmol/L Chloride 90 L (98-107) mmol/L Carbon Dioxide 41 H* (22-30) mmol/L BUN 36 H (9-20) mg/dL Creatinine 0.52 L (0.66-1.25) mg/dL Glucose 281 H (74-99) mg/dL POC Glucose (mg/dL) (75-99) mg/dL Calcium 8.0 L (8.4-10.2) mg/dL ALT 67 H (4-49) U/L Troponin I 0.098 H* (0.000-0.034) ng/mL Total Protein 5.0 L (6.3-8.2) g/dL Albumin 2.8 L (3.5-5.0) g/dL 04/25/20 04/25/20 04/25/20 Range/Units 18:58 18:58 20:21 WBC (3.8-10.6) k/uL Plt Count (150-450) k/uL Neutrophils # (1.3-7.7) k/uL Lymphocytes # (1.0-4.8) k/uL Potassium 2.2 L* (3.5-5.1) mmol/L Chloride (98-107) mmol/L Carbon Dioxide (22-30) mmol/L BUN (9-20) mg/dL Creatinine (0.66-1.25) mg/dL Glucose (74-99) mg/dL POC Glucose (mg/dL) 386 H (75-99) mg/dL Calcium (8.4-10.2) mg/dL ALT (4-49) U/L Troponin I 0.090 H* (0.000-0.034) ng/mL Total Protein (6.3-8.2) g/dL Albumin (3.5-5.0) g/dL 04/25/20 04/25/20 04/26/20 Range/Units 22:04 22:04 06:02 WBC (3.8-10.6) k/uL Plt Count (150-450) k/uL Neutrophils # (1.3-7.7) k/uL Lymphocytes # (1.0-4.8) k/uL Potassium 2.2 L* (3.5-5.1) mmol/L Chloride (98-107) mmol/L Carbon Dioxide (22-30) mmol/L BUN (9-20) mg/dL Creatinine (0.66-1.25) mg/dL Glucose (74-99) mg/dL POC Glucose (mg/dL) 209 H (75-99) mg/dL Calcium (8.4-10.2) mg/dL ALT (4-49) U/L Troponin I 0.087 H* (0.000-0.034) ng/mL Total Protein (6.3-8.2) g/dL Albumin (3.5-5.0) g/dL Assessment and Plan (1) Hypokalemia Narrative/Plan: Paraneoplastic syndrome. Patient is being supplemented. Cardiology and Nephrology consulted. Current Visit: Yes Status: Acute Priority: High Code(s): E87.6 - HYPOKALEMIA SNOMED Code(s): 17235138 (2) Small cell lung cancer Narrative/Plan: Pending insurance approval to get patient started as soon as possible. He will be contacted with appointment date and time. Current Visit: Yes Status: Acute Priority: High Code(s): C34.90 - MA LIGNANT NEOPLASM OF UNSP PART OF UNSP BRONCHUS OR LUNG SNOMED Code(s): 25 9237212 Plan: Doctor attests: I performed a history and physical examination of this patient, developed impression and plan of care, discussed with dictator. I agree with dictators note, documented as a scribe.
[2020-04-26 20:43] LABS: Glucose,Whole Blood 295 mg/dL (75-99)
[2020-04-26] MEDS: TAMSULOSIN 0.4 MG CAP.ER.24H PO SCH (20:52)
[2020-04-26] MEDS: INSULIN DETEMIR (LEVEMIR) 100 UNIT/ML SYR SQ SCH (20:52)
--- NOTE | 2020-04-26 22:18 | P.HPIM ---
History of Present Illness H&P Date: 04/26/20 Chief Complaint: hypokalemia Eitan Quezada is a 64 yo M with PMH of recently diagnosed small cell lung cancer, HTN, CAD who presented to the ED on the recommendation of his Oncologist after outpatient labs were noted to show hypokalemia. He does feel has been more tired lately, weakness is stable and continues to have limited use of his lower extremities and requiring assistance around the house. He denies fever, chills, chest pain or shortness of breath. He is waiting on insurance auth to start chemotherapy and is eager to begin. On presentation his vitals were stable, labs with WBC 14k, potassium 1.8, bicarb 41, trop 0.098. Review of Systems All systems: negative Constitutional: Reports weakness, Denies chills, Denies fever Eyes: denies blurred vision, denies pain Ears, nose, mouth and throat: Denies headache, Denies sore throat Cardiovascular: Denies chest pain, Denies shortness of breath Respiratory: Denies cough Gastrointestinal: Denies abdominal pain, Denies diarrhea, Denies nausea, Denies vomiting Musculoskeletal: Denies myalgias Integumentary: Denies pruritus, Denies rash Neurological: Reports confusion, Denies numbness, Denies weakness Psychiatric: Denies anxiety, Denies depression Endocrine: Denies fatigue, Denies weight change Past Medical History Past Medical History: Cancer, Diabetes Mellitus, Hearing Disorder / Deafness, Hyperlipidemia, Hypertension, Osteoarthritis (OA) Additional Past Medical History / Comment(s): Enlarged prostate. I have a disease, not sure of the name but causes numbness, tingling and weakness in legs and arms, use a wheelcahir. No CPAP use. Tinnitus. History of Any Multi-Drug Resistant Organisms: None Reported Past Surgical History: No Surgical Hx Reported Additional Past Surgical History / Comment(s): "Had some muscle taken out of left thigh area for testing". Past Anesthesia/Blood Transfusion Reactions: No Reported Reaction Past Psychological History: No Psychological Hx Reported Smoking Status: Never smoker Past Alcohol Use History: None Reported Past Drug Use History: None Reported - Past Family History Mother Family Medical History: No Reported History Medications and Allergies Home Medications Medication Instructions Recorded Confirmed Type Tamsulosin HCl [Flomax] 0.4 mg PO HS 01/26/20 04/25/20 History Insulin Glargine [Lantus] 20 unit SQ HS 04/10/20 04/25/20 History Sennosides [Senna] 8.6 mg PO AC-BID 04/10/20 04/25/20 History Losartan Potassium 100 mg PO DAILY 04/25/20 04/25/20 History amLODIPine [Norvasc] 5 mg PO DAILY 04/25/20 04/25/20 History carvediloL [Coreg*] 12.5 mg PO AC-BID 04/25/20 04/25/20 History Allergies Allergy/AdvReac Type Severity Reaction Status Date / Time Penicillins Allergy Rash/Hives Verified 04/25/20 16:25 Physical Exam Vitals: Vital Signs Temp Pulse Resp BP Pulse Ox 04/26/20 16:00 98.2 F 64 18 131/71 94 L 04/26/20 12:00 98 F 53 L 16 147/75 97 04/26/20 08:00 97.8 F 59 L 15 116/69 95 04/26/20 04:00 60 20 151/78 92 L 04/26/20 00:00 63 18 154/74 94 L Intake and Output 04/26/20 04/26/20 04/26/20 06:59 14:59 22:59 Intake Total 100 120 Output Total 300 1210 Balance -300 100 -1090 Intake: Oral 100 120 Output: Urine 300 1210 Other: Voiding Method Urinal Urinal # Voids 2 0 1 # Bowel Movements 0 1 Weight 71.5 kg 71.5 kg General: well nourished, well developed, NAD. Vitals reviewed Eyes: PERRL, EOMI, conjunctiva normal HENT: normocephalic, mucus membranes moist Neck: supple, no JVD Lungs: normal respiratory effort, no wheezes or rales CV: Regular rate and rhythm, no murmur. Peripheral pulses 2+. No edema Abdomen: soft, nondistended, no organomegaly Lymph: no cervical or axillary LAD Skin: warm and dry. Neuro: A&Ox3, normal mood and affect. Str 4/5 to plantar flexion, 3/5 hip flexion Results CBC & Chem 7: 04/25/20 14:33 04/26/20 08:12 Labs: Abnormal Lab Results - Last 24 Hours (Table) 04/25/20 04/25/20 04/26/20 Range/Units 22:04 22:04 06:02 Potassium 2.2 L* (3.5-5.1) mmol/L Carbon Dioxide (22-30) mmol/L BUN (9-20) mg/dL Creatinine (0.66-1.25) mg/dL Glucose (74-99) mg/dL POC Glucose (mg/dL) 209 H (75-99) mg/dL Calcium (8.4-10.2) mg/dL Troponin I 0.087 H* (0.000-0.034) ng/mL 04/26/20 04/26/20 04/26/20 Range/Units 08:12 12:05 17:04 Potassium 2.8 L (3.5-5.1) mmol/L Carbon Dioxide 42 H* (22-30) mmol/L BUN 29 H (9-20) mg/dL Creatinine 0.39 L (0.66-1.25) mg/dL Glucose 101 H (74-99) mg/dL POC Glucose (mg/dL) 163 H 215 H (75-99) mg/dL Calcium 8.0 L (8.4-10.2) mg/dL Troponin I (0.000-0.034) ng/mL 04/26/20 Range/Units 20:39 Potassium (3.5-5.1) mmol/L Carbon Dioxide (22-30) mmol/L BUN (9-20) mg/dL Creatinine (0.66-1.25) mg/dL Glucose (74-99) mg/dL POC Glucose (mg/dL) 295 H (75-99) mg/dL Calcium (8.4-10.2) mg/dL Troponin I (0.000-0.034) ng/mL Assessment and Plan (1) Elevated troponin Current Visit: Yes Status: Acute Code(s): R77.8 - OTHER SPECIFIED ABNORMALITIES OF PLASMA PROTEINS SNOMED Code(s): 401947597 (2) Diabetes mellitus with skin ulcer Current Visit: Yes Status: Acute Code(s): E11.622 - TYPE 2 DIABETES MELLITUS WITH OTHER SKIN ULCER; L98.499 - NON-PRESSURE CHRONIC ULCER OF SKIN OF SITES W UNSP SEVERITY SNOMED Code(s): 50339640 (3) Pressure ulcer of sacral region, stage 2 Current Visit: Yes Status: Acute Code(s): L89.152 - PRESSURE ULCER OF SACRAL REGION, STAGE 2 SNOMED Code(s): 080420907 (4) Small cell lung cancer Current Visit: Yes Status: Acute Priority: High Code(s): C34.90 - MALIGNANT NEOPLASM OF UNSP PART OF UNSP BRONCHUS OR LUNG SNOMED Code(s): 827067057 (5) Essential hypertension Current Visit: No Status: Acute Code(s): I10 - ESSENTIAL (PRIMARY) HYPERTENSION SNOMED Code(s): 57761283 (6) Muscle weakness Current Visit: No Status: Acute Code(s): M62.81 - MUSCLE WEAKNESS (GENERALIZED) SNOMED Code(s): 72066501 (7) Myopathy Current Visit: No Status: Acute Code(s): G72.9 - MYOPATHY, UNSPECIFIED SNOMED Code(s): 413033302 Plan: 1. Severe hypokallemia. Secondary to lung cancer. Admit and treat with IV and PO potassium. Nephrology consult 2. Small cell carcinoma. Oncology consulted 3. Elevated troponin. Suspect demand ischemia. Continue to trend. Cardiology consult 4. HTN. Contineu coreg, norvasc, cozaar 5. T2DM with skin ulcer. Consult wound team. Continue lantus, sliding scale insulin
[2020-04-27] MEDS: amLODIPine 5 MG TAB PO SCH (03:49)
[2020-04-27 06:21] LABS: Glucose,Whole Blood 216 mg/dL (75-99)
[2020-04-27] MEDS: SENNOSIDES 8.6 MG TAB PO SCH ×2 (06:46→17:22)
[2020-04-27] MEDS: INSULIN ASPART (NovoLOG) 100 UNIT/ML VIAL SQ SCH ×4 (06:46→20:10)
[2020-04-27] MEDS: carvediloL 12.5 MG TAB PO SCH ×2 (06:46→17:22)
[2020-04-27 08:44] LABS: Potassium 3.1 mmol/L (3.5-5.1)
[2020-04-27] MEDS: SPIRONOLACTONE 25 MG TAB PO SCH (08:59)
[2020-04-27] MEDS: LOSARTAN 50 MG TAB PO SCH (08:59)
[2020-04-27] MEDS ORDERED: Potassium Replacement Protocol 1 EACH MISC MISCELLANE PRN (10:50)
--- NOTE | 2020-04-27 11:34 | P.DS ---
Providers Date of admission: 04/25/20 16:16 Expected date of discharge: 04/27/20 Attending physician: Matt Snowden MD Consults: 04/25/20 16:16 Consult Physician Urgent Consulting Provider: Ron Nevarez Consult Reason/Comments: Oncological care Do you want consulting provider notified?: Yes Consult Physician Urgent Consulting Provider: Deirdre Jorgensen Consult Reason/Comments: Cardiac evaluation and treatment Do you want consulting provider notified?: Yes 04/25/20 16:25 Consult Physician Urgent Consulting Provider: Lewis Alvarado Consult Reason/Comments: lung ca, hypokalemia Do you want consulting provider notified?: Yes Consult Physician Urgent Consulting Provider: Deirdre Jorgensen Consult Reason/Comments: Hypokalemia Do you want consulting provider notified?: Yes 04/26/20 11:23 Consult Physician Urgent Consulting Provider: Ness Quach Consult Reason/Comments: chronic hypokalemia Do you want consulting provider notified?: Yes Primary care physician: Matt Snowden MD Hospital Course: Final Diagnoses: Severe hypokalemia, possibly secondary to lung CA Small cell lung cancer, recent diagnosis Current Visit: Yes Status: Acute Priority: High Code(s): C34.90 - MALIGNANT NEOPLASM OF UNSP PART OF UNSP BRONCHUS OR LUNG SNOMED Code(s): 576664359 Elevated troponin Current Visit: Yes Status: Acute Code(s): R77.8 - OTHER SPECIFIED ABNORMALITIES OF PLASMA PROTEINS SNOMED Code(s): 161913008 Essential hypertension Current Visit: No Status: Acute Code(s): I10 - ESSENTIAL (PRIMARY) HYPERTENSION SNOMED Code(s): 49016094 Diabetes mellitus with skin ulcer Current Visit: Yes Status: Acute Code(s): E11.622 - TYPE 2 DIABETES MELLITUS WITH OTHER SKIN ULCER; L98.499 - NON-PRESSURE CHRONIC ULCER OF SKIN OF SITES W UNSP SEVERITY SNOMED Code(s): 07286861 Pressure ulcer of sacral region, stage 2 Current Visit: Yes Status: Acute Code(s): L89.152 - PRESSURE ULCER OF SACRAL REGION, STAGE 2 SNOMED Code(s): 501581851 Muscle weakness Current Visit: No Status: Acute Code(s): M62.81 - MUSCLE WEAKNESS (GE NERALIZED) SNOMED Code(s): 65124355 Myopathy Current Visit: No Status: Acute Code(s): G72.9 - MYOPATHY, UNSPECIFIED SNOMED Code(s): 291593507 stage II pressure ulcer of buttocks Hospital course:Eitan Quezada is a 64 yo M with PMH of recently diagnosed small cell lung cancer, HTN, CAD who presented to the ED on the recommendation of his Oncologist after outpatient labs were noted to show hypokalemia. He does feel has been more tired lately, weakness is stable and continues to have limited use of his lower extremities and requiring assistance around the house. He denies fever, chills, chest pain or shortness of breath. He is waiting on insurance auth to start chemotherapy and is eager to begin. On presentation his vitals were stable, labs with WBC 14k, potassium 1.8, bicarb 41, trop 0.098. Significant clinical improvement. Cleared by all consults for discharge. Patient states he has an appointment with oncology on Thursday. Currently receiving potassium supplementation per replacement protocol. Patient will be discharged home today in a stable condition with guarded prognosis pending normal potassium upon recheck. The impression and plan of care has been dictated as directed. : I performed a history and examination of this patient, discussed the same with the dictator. I agree with the dictator's note ,documented as a scribe. Any additional findings or plans will be noted. Patient Condition at Discharge: Stable Plan - Discharge Summary New Discharge Prescriptions: New Potassium Chloride ER [K-Dur 20] 20 meq PO BID #60 tab Spironolactone [Aldactone] 25 mg PO DAILY #30 tab Continue Tamsulosin HCl [Flomax] 0.4 mg PO HS Insulin Glargine [Lantus] 20 unit SQ HS Sennosides [Senna] 8.6 mg PO AC-BID carvediloL [Coreg*] 12.5 mg PO AC-BID amLODIPine [Norvasc] 5 mg PO DAILY Losartan Potassium 100 mg PO DAILY Discharge Medication List Tamsulosin HCl [Flomax] 0.4 mg PO HS 01/26/20 [History] Insulin Glargine [Lantus] 20 unit SQ HS 04/10/20 [History] Sennosides [Senna] 8.6 mg PO AC-BID 04/10/20 [History] Losartan Potassium 100 mg PO DAILY 10/14/20 [History] amLODIPine [Norvasc] 5 mg PO DAILY 04/25/20 [History] carvediloL [Coreg*] 12.5 mg PO AC-BID 04/25/20 [History] Potassium Chloride ER [K-Dur 20] 20 meq PO BID #60 tab 04/27/20 [Rx] Spironolactone [Aldactone] 25 mg PO DAILY #30 tab 04/27/20 [Rx] Follow up Appointment(s)/Referral(s): Ron Nevarez MD [STAFF PHYSICIAN] - 04/30/20 (As previously scheduled) Matt Snowden MD [Primary Care Provider] - 3 Days (Please schedule follow-up prior to discharge) [facility] [NON-STAFF] - As Needed Ambulatory/Diagnostic Orders: Complete Blood Count w/diff [LAB.AMB] Time Frame: 3 Days, Location: None Selected Activity/Diet/Wound Care/Special Instructions: Pending normal potassium after replacement. Roho cushion for siting in wheelchair. Insurance may cover otherwise purchase from [employer].
[2020-04-27] MEDS: POTASSIUM CHLORIDE ER 20 MEQ TAB.ER PO SCH ×5 (11:39→20:59)
--- NOTE | 2020-04-27 12:03 | P.PN ---
Subjective This is a pleasant 64-year-old male past medical history significant for hypertension, dyslipidemia, diabetes mellitus and carcinoma of the lung. He is seen and examined resting comfortably laying flat in bed in no acute distress. He states overall he feels generally weak. He has no chest pain, dizziness, shortness of breath or palpitations. Blood pressure 117/67 heart rate 66 afebrile maintaining oxygen saturation on room air. Laboratory data reviewed, potassium 3.1 and magnesium 2.0. Currently maintained on amlodipine 5 mg daily, carvedilol 12.5 mg twice a day, losartan 100 mg daily and Aldactone 25 mg daily. GENERAL: Well-appearing, well-nourished and in no acute distress. NECK: Supple without JVD or thyromegaly. LUNGS: Breath sounds clear to auscultation bilaterally. Respiration equal and unlabored. No wheezes, rales or rhonchi. HEART: Regular rate and rhythm without murmurs, rubs or gallops. S1 and S2 heard. EXTREMITIES: Normal range of motion, no edema. No clubbing or cyanosis. Peripheral pulses intact. ASSESSMENT Hypokalemia Hypertension Diabetes mellitus Recent diagnosis of lung cancer PLAN Continue to replace potassium per protocol. Otherwise stable for discharge from a cardiac perspective. Nurse Practitioner note has been reviewed, I agree with a documented findings and plan of care. Patient was seen and examined. Objective - Vital Signs Vital signs: Vital Signs Temp 96.2 F L 04/27/20 08:30 Pulse 66 04/27/20 08:30 Resp 18 04/27/20 08:30 BP 117/67 04/27/20 08:30 Pulse Ox 92 L 04/27/20 08:30 Intake & Output 04/26/20 04/27/20 04/27/20 18:59 06:59 18:59 Intake Total 220 Output Total 1000 1110 Balance -780 -1110 Weight 71.5 kg 70.5 kg Intake: Oral 220 Output: Urine 1000 1110 Other: Voiding Method Urinal Urinal Urinal # Voids 0 4 # Bowel Movements 1 - Labs CBC & Chem 7: 04/25/20 14:33 04/27/20 07:36 Labs: Abnormal Lab Results - Last 24 Hours (Table) 04/26/20 04/26/20 04/26/20 Range/Units 12:05 17:04 20:39 Potassium (3.5-5.1) mmol/L POC Glucose (mg/dL) 163 H 215 H 295 H (75-99) mg/dL 04/27/20 04/27/20 Range/Units 06:20 07:36 Potassium 3.1 L (3.5-5.1) mmol/L POC Glucose (mg/dL) 216 H (75-99) mg/dL
[2020-04-27 12:18] LABS: Glucose,Whole Blood 247 mg/dL (75-99)
--- NOTE | 2020-04-27 12:33 | P.PN ---
Subjective Progress Note Date: 04/27/20 Principal diagnosis: Hypokalemia, generalized weakness This a very pleasant 64-year-old gentleman with a known history of diabetes mellitus, hyperlipidemia, hypertension, obstructive sleep apnea utilizing CPAP in the outpatient setting, hearing disorder. He is a lifelong nonsmoker. 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 He has not started any treatment yet. He has been seen by medical and radiation oncology. He was seen yesterday at the oncology office and lab work revealed a critical low sodium and he was referred to the emergency room. He was having complaints of generalized weakness and fatigue. Potassium level here was 1.8. He is seen today in consultation on the selective care unit. He is currently sitting up at the bedside. Awake and alert in no acute distress. He is still complaining of generalized weakness and fatigue. Still some shortness of breath on exertion. His potassium has been corrected to 2.8 currently. He has some lower extremity edema. 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 He had previously had a muscle biopsy due to his weakness prior to his diagnosis of small cell lung cancer. Currently receiving 0.9 normal saline with 20 mEq of Jennifer Ciel at 50 MLS per hour. He is on Aldactone. Echocardiogram revealed preserved left ventricular systolic function. EKG revealed sinus bradycardia with a right bundle branch block. Denies any shortness of breath. Maintaining O2 saturations in the mid 90s on room air. The patient is seen today 04/27/2020 in follow-up on the selective care unit. He is currently awake and alert in no acute distress. Resting quite comfortably in bed. No worsening shortness of breath, cough or congestion. He is feeling a bit stronger today compared to yesterday. Maintaining good O2 saturations in the 90s on room air. He's afebrile. Maintaining sinus rhythm. Current potassium 3.1. Remains on potassium supplement. Objective - Vital Signs Vital signs: Vital Signs Temp 96.2 F L 04/27/20 08:30 Pulse 68 04/27/20 11:15 Resp 18 04/27/20 11:15 BP 185/89 04/27/20 11:15 Pulse Ox 93 L 04/27/20 11:15 Intake & Output 04/26/20 04/27/2020 18:59 06:59 18:59 Intake Total 220 240 Output Total 1000 1110 350 Balance -780 -1110 -110 Weight 71.5 kg 70.5 kg Intake: Oral 220 240 Output: Urine 1000 1110 350 Other: Voiding Method Urinal Urinal Urinal # Voids 0 4 # Bowel Movements 1 - Exam GENERAL EXAM: Alert, active, 64-year-old gentleman, on room air, resting comfort ably in bed. HEAD: Normocephalic. EYES: Normal reaction of pupils, equal size. NOSE: Clear with pink turbinates. THROAT: No erythema or exudates. NECK: No masses, no JVD. CHEST: No chest wall deformity. LUNGS: Equal air entry with no crackles, wheeze, rhonchi or dullness. CVS: S1 and S2 normal with no audible murmur, regular rhythm. ABDOMEN: No hepatosplenomegaly, normal bowel sounds, no guarding or rigidity. SPINE: No scoliosis or deformity SKIN: No rashes CENTRAL NERVOUS SYSTEM: No focal deficits, tone is normal in all 4 extremities. EXTREMITIES: There is no peripheral edema. No clubbing, no cyanosis. Peripheral pulses are intact. 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 Rachel Green from the pulmonary standpoint Replace potassium per nephrology Cleared for discharge once potassium corrected I, the cosigning physician, performed a history & physical examination of the patient. Lungs sounds are clear. Maintaining good O2 saturations in the 90s on room air. I discussed the assessment and plan of care with my nurse practitioner, Mikayla Suggs. I attest to the above consultation as dictated by her.
[2020-04-27] MEDS: 0.9% NACL WITH KCL 20 MEQ/L 1,000 ML IV SCH (16:16)
[2020-04-27 16:58] LABS: Glucose,Whole Blood 368 mg/dL (75-99)
[2020-04-27] MEDS ORDERED: cloNIDine HCL 0.1 MG TAB PO STA (17:16)
[2020-04-27 19:48] LABS: Glucose,Whole Blood 440 mg/dL (75-99)
[2020-04-27] MEDS: TAMSULOSIN 0.4 MG CAP.ER.24H PO SCH (20:09)
[2020-04-27] MEDS: INSULIN DETEMIR (LEVEMIR) 100 UNIT/ML SYR SQ SCH (20:10)
--- NOTE | 2020-04-27 22:01 | CONS ---
CONSULTATION REASON FOR CONSULT: Hypokalemia. HISTORY OF PRESENT ILLNESS: Patient is a 64-year-old male who has a history of small-cell lung cancer, recently diagnosed, and needs to start chemotherapy. He was admitted to the hospital, as he was noted to have abnormal labs as outpatient. His potassium was 1.8 and his serum bicarb was 41. The patient stated he has not had any diarrhea, nausea or vomiting. He has not started any chemotherapy yet. Home medications included Aldactone. I do not see any loop diuretics or thiazide diuretics. Patient was on potassium supplementation prior to admission. He states that he has had low potassium levels previously as well sometime in January. No history of increased intake of licorice. The patient has diabetes and blood sugars have been running high. His serum creatinine is 0.39. He has significant metabolic alkalosis. Previous bicarb was about 25 in February of 2020. Currently patient is maintained on angiotensin receptor blockers, Aldactone and potassium supplementation. PAST MEDICAL HISTORY: Past medical history is significant for recent diagnosis of lung cancer, history of diabetes, history of hypertension, coronary artery disease, hearing loss, hyperlipidemia, osteoarthritis and large prostate. SOCIAL HISTORY: Negative for smoking, drug abuse or alcohol abuse. MEDICATIONS: Medications prior to admission included Flomax, insulin, Senna, losartan, Norvasc, Coreg. ALLERGIES: ALLERGIES include PENICILLIN, which causes rash and hives. PHYSICAL EXAMINATION: Patient is comfortable, awake. He is not in any acute distress. Alert, oriented x3. Blood pressure is 117/67, heart rate 66 per minute. He is afebrile. EXAMINATION OF THE HEART: S1 and S2. EXAMINATION OF LUNGS: Bilateral breath sounds are heard. ABDOMEN: Soft, non-tender, obese. Examination of lower extremities shows no significant edema. [employer] exam is grossly intact. ASSESSMENT: 1. Severe hypokalemia without use of diuretics and no history of vomiting. No history of licorice intake. Blood pressure has been on the higher side. His potassium has improved post replacement. However, he has significant unprovoked hypokalemia. Need to rule out renal losses. I will check a random urine potassium and check aldosterone and renal levels as well, although this may be inaccurate, as patient is already on Aldactone. 2. Metabolic alkalosis associated with severe hypokalemia and possibly an element of contraction alkalosis. BUN was higher, currently. Patient did get IV fluids initially. 3. History of benign prostatic hypertrophy, maintained on Flomax. 4. Hypertension, maintained on Cozaar and Norvasc along with Aldactone. 5. Recent diagnosis of lung cancer, which needs chemotherapy. PLAN: Continue potassium replacement. Check random urine potassium. Check renal and aldosterone levels. I will increase the dose of Aldactone once the labs are drawn. Patient will need followup as outpatient. Thank you for this consultation. Will continue to follow the patient with you during his hospitalization. MMSTEFL / CARON: [id number] /
[2020-04-28] MEDS ORDERED: amLODIPine 5 MG TAB PO STA (00:07)
[2020-04-28 06:25] LABS: Glucose,Whole Blood 279 mg/dL (75-99)
[2020-04-28] MEDS: 0.9% NACL WITH KCL 20 MEQ/L 1,000 ML IV SCH (06:26)
[2020-04-28] MEDS: INSULIN ASPART (NovoLOG) 100 UNIT/ML VIAL SQ SCH ×2 (06:38→12:42)
[2020-04-28] MEDS: carvediloL 12.5 MG TAB PO SCH ×2 (06:38→17:03)
[2020-04-28] MEDS: SENNOSIDES 8.6 MG TAB PO SCH ×2 (06:43→17:03)
[2020-04-28] MEDS: LOSARTAN 50 MG TAB PO SCH (08:45)
[2020-04-28] MEDS: SPIRONOLACTONE 25 MG TAB PO SCH (08:45)
[2020-04-28] MEDS: POTASSIUM CHLORIDE ER 20 MEQ TAB.ER PO SCH ×2 (08:46→12:41)
[2020-04-28] MEDS: amLODIPine 5 MG TAB PO SCH (08:46)
--- NOTE | 2020-04-28 10:00 | P.PN ---
Subjective Progress Note Date: 04/28/20 Principal diagnosis: This is a 64-year-old male seen in consultation because of hypokalemia and metabolic alkalosis. The cause of hypokalemia not clear and this has been noted at least in February [address] Blake saw him at the time. The alkalosis though is new. Extensive workup at that time included serum cortisol, serum metanephrines, renin and aldosterone levels were normal. On this admission a urine potassium is 32, he was at the time on Aldactone, therefore suggesting losses in spite of Aldactone His metabolic alkalosis somewhat new. There is no history of taking any steroids or diuretics. He was recently diagnosed with lung cancer. No nausea vomiting. His blood sugar was somewhat high, in the 200-400 range This morning is feeling fine his potassium is improved, was 1.8 on 04/25/2020 and slowly has gone up to 3.4. His current medications include losartan, potassium chloride by mouth and spironolactone 25 mg Objective - Vital Signs Vital signs: Vital Signs Temp 97.0 F L 04/28/20 08:00 Pulse 76 04/28/20 08:00 Resp 16 04/28/20 08:00 BP 152/81 04/28/20 08:00 Pulse Ox 97 04/28/20 08:00 Intake & Output 04/27/20 04/28/20 04/28/20 18:59 06:59 18:59 Intake Total 780 Output Total 350 850 600 Balance 430 -850 -600 Weight 76.5 kg Intake: Oral 780 Output: Urine 350 850 600 Other: Voiding Method Urinal Urinal Urinal # Voids 2 On examination is awake alert oriented comfortable HEENT exam no JVP neck is supple no facial asymmetry Lungs are clear to auscultation good air entry bilaterally Heart sounds are unremarkable for any murmur rub gallop Abdomen soft nontender Extremity exam was significant for 1+ edema Neurologically awake alert oriented - Labs CBC & Chem 7: 04/25/20 14:33 04/28/20 07:49 Labs: Abnormal Lab Results - Last 24 Hours (Table) 04/27/20 04/27/20 04/27/20 Range/Units 12:07 16:05 16:50 Potassium 3.1 L (3.5-5.1) mmol/L POC Glucose (mg/dL) 247 H 368 H (75-99) mg/dL 04/27/20 04/28/20 04/28/20 Range/Units 19:46 06:23 07:49 Potassium 3.4 L (3.5-5.1) mmol/L POC Glucose (mg/dL) 440 H 279 H (75-99) mg/dL Assessment and Plan Assessment: Impression 1. Hypokalemia cause not very clear. Urinary leak suggested with the urine potassium of 30 to in spite of being on Aldactone. Previous workup in February 2020 was unremarkable with normal serum cortisol, serum metanephrines, plasma AND RENIN LEVEL. No diuretic screen available. Magnesium level is normal. Alkalosis somewhat new therefore Bartter's syndrome is unlikely as well as blood pressure is high. 2. Hypertension not controlled 3. Edema, possibly related to amlodipine, 3+ protein noted on 02/18/2020 rule out nephrotic syndrome. Echocardiogram shows ejection fraction 55% otherwise unremarkable right ventricular pressure is 35 4. Recent carcinoma of the lung Recommendation 1. Increase Aldactone to 50 twice a day. 2. Potassium replacement 20 twice a day orally. 3. Maintain losartan 4. If necessary we can use nonsteroidals but for right now will watch.
[2020-04-28 11:47] LABS: Glucose,Whole Blood 257 mg/dL (75-99)
--- NOTE | 2020-04-28 13:31 | P.PN ---
Subjective Progress Note Date: 04/28/20 Principal diagnosis: Hypokalemia, generalized weakness This a very pleasant 64-year-old gentleman with a known history of diabetes mellitus, hyperlipidemia, hypertension, obstructive sleep apnea utilizing CPAP in the outpatient setting, hearing disorder. He is a lifelong nonsmoker. 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 He has not started any treatment yet. He has been seen by medical and radiation oncology. He was seen yesterday at the oncology office and lab work revealed a critical low sodium and he was referred to the emergency room. He was having complaints of generalized weakness and fatigue. Potassium level here was 1.8. He is seen today in consultation on the selective care unit. He is currently sitting up at the bedside. Awake and alert in no acute distress. He is still complaining of generalized weakness and fatigue. Still some shortness of breath on exertion. His potassium has been corrected to 2.8 currently. He has some lower extremity edema. 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 He had previously had a muscle biopsy due to his weakness prior to his diagnosis of small cell lung cancer. Currently receiving 0.9 normal saline with 20 mEq of Jennifer Ciel at 50 MLS per hour. He is on Aldactone. Echocardiogram revealed preserved left ventricular systolic function. EKG revealed sinus bradycardia with a right bundle branch block. Denies any shortness of breath. Maintaining O2 saturations in the mid 90s on room air. The patient is seen today 04/27/2020 in follow-up on the selective care unit. He is currently awake and alert in no acute distress. Resting quite comfortably in bed. No worsening shortness of breath, cough or congestion. He is feeling a bit stronger today compared to yesterday. Maintaining good O2 saturations in the 90s on room air. He's afebrile. Maintaining sinus rhythm. Current potassium 3.1. Remains on potassium supplement. The patient is seen today 04/28/2020 in follow-up on the selective care unit. He is currently sitting up at the bedside. Awake and alert in no acute distress. Feeling quite a bit better today. Stronger. Maintaining good O2 saturations in the 90s on room air. He's afebrile. Hemodynamically stable. Potassium 3.3. Continued on Aldactone and potassium supplements. Objective - Vital Signs Vital signs: Vital Signs Temp 97.0 F L 04/28/20 08:00 Pulse 76 04/28/20 08:00 Resp 16 04/28/20 08:00 BP 152/81 04/28/20 08:00 Pulse Ox 97 04/28/20 08:00 Intake & Output 04/27/20 04/28/20 04/28/20 18:59 06:59 18:59 Intake Total 780 120 Output Total 350 850 600 Balance 430 -850 -480 Weight 76.5 kg Intake: Oral 780 120 Output: Urine 350 850 600 Other: Voiding Method Urinal Urinal Urinal # Voids 2 - Exam GENERAL EXAM: Alert, active, 64-year-old gentleman, on room air, resting comfortably in bed. HEAD: Normocephalic. EYES: Normal reaction of pupils, equal size. NOSE: Clear with pink turbinates. THROAT: No erythema or exudates. NECK: No masses, no JVD. CHEST: No chest wall deformity. LUNGS: Equal air entry with no crackles, wheeze, rhonchi or dullness. CVS: S1 and S2 normal with no audible murmur, regular rhythm. ABDOMEN: No hepatosplenomegaly, normal bowel sounds, no guarding or rigidity. SPINE: No scoliosis or deformity SKIN: No rashes CENTRAL NERVOUS SYSTEM: No focal deficits, tone is normal in all 4 extremities. EXTREMITIES: There is no peripheral edema. No clubbing, no cyanosis. Peripheral pulses are intact. 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 Rachel Green from the pulmonary standpoint Replace potassium, continue Aldactone, per nephrology Cleared for discharge once cleared medically I, the cosigning physician, performed a history & physical examination of the patient. Lungs sounds are clear. Maintaining good O2 saturations in the 90s on room air. I discussed the assessment and plan of care with my nurse practitioner, Mikayla Suggs. I attest to the above consultation as dictated by her.
[2020-04-28] MEDS ORDERED: POTASSIUM CHLORIDE ER 20 MEQ TAB.ER PO STA (16:18)
[2020-04-28 18:22] VITALS: BP 200/92; PULSE 68; RESP 16; TEMP 97
[2020-04-28] MEDS ORDERED: SPIRONOLACTONE 25 MG TAB PO SCH (21:00)
[2020-04-28] MEDS ORDERED: POTASSIUM CHLORIDE ER 20 MEQ TAB.ER PO SCH (21:00)
--- NOTE | 2020-04-28 23:21 | P.DS ---
Providers Date of admission: 04/25/20 16:16 Attending physician: Matt Snowden MD Consults: 04/25/20 16:16 Consult Physician Urgent Consulting Provider: Ron Nevarez Consult Reason/Comments: Oncological care Do you want consulting provider notified?: Yes Consult Physician Urgent Consulting Provider: Deirdre Jorgensen Consult Reason/Comments: Cardiac evaluation and treatment Do you want consulting provider notified?: Yes 04/25/20 16:25 Consult Physician Urgent Consulting Provider: Lewis Alvarado Consult Reason/Comments: lung ca, hypokalemia Do you want consulting provider notified?: Yes Consult Physician Urgent Consulting Provider: Deirdre Jorgensen Consult Reason/Comments: Hypokalemia Do you want consulting provider notified?: Yes 04/26/20 11:23 Consult Physician Urgent Consulting Provider: Ness Quach Consult Reason/Comments: chronic hypokalemia Do you want consulting provider notified?: Yes Primary care physician: Matt Snowden MD Hospital Course: On-call hospitalist covering for Dr. Snowden starting today 04/28 Diagnoses: Severe hypokalemia on admission, normal upon discharge Small cell lung cancer, follow-up with Dr. 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 Presents because his oncologist Dr. Farah found him to be hypokalemic and referred him to the hospital An on presentation his potassium was 1.8, his been corrected and currently is 3.4. Magnesium was 1.7 on admission and currently is 2.0. Also on the presentation he has high troponin, his been evaluated by puller over and cleared him for discharge. Patient currently no chest pain or dyspnea. Pulmonary team also were following the patient and also the phone who is stable from yesterday and cleared for discharge once his potassium is been corrected. Nephrology team evaluated the patient and today they placed him on potassium chloride 20 mEq twice a day. Today patient is fully awake and oriented, he denies any symptoms and he states and a little much better " I feel great" he denies any other symptoms no chest pain or dyspnea or headaches, no new weakness or numbness. No change in urine or bowel habits, no abdominal pain or nausea vomiting and he is tolerating diet well. These have weakness in his lower extremity for myopathy and his been going on for more than 5 months as per patient. Patient refused physical therapy evaluation and refused to go to rehab stating that whenever he goes to rehab he got weaker. Also he has sacral pressure ulcers and he says that his take care of him. Also his help with all his medication. Patient glucose was slightly elevated to 16-247 this morning, patient states he does not want to increase his home dose of Levemir 20 units at bedtime, he thinks his sugar is high because of the diet here but once he goes back home he'll be controlled, he says he checks his sugar 5 times a day and maneuvers high his , and with extra dose of insulin. Patient has an follow-up appointment with Dr. Farah on this thursday and he intends to follow up with that appointment where medical to decide whether to go for chemotherapy or radiotherapy. Also he has an appointment with his PCP Dr. Snowden on this 05/01 at 2 PM, he has all his appointments and his form . Patient was cleared for discharge by all consult is occluding cardiology, pulmonary and nephrology Patient will be discharged on potassium chloride 20 mEq twice a day and increase dose of spironolactone to 50 mg daily as per glove wrapper recommendation. The patient has close follow-up appointment with his PCP and oncologist and others, CT discharge instructions His potassium upon discharge was 3.3 and 3.4 and his been provided with supplements 2 Problems and management plan were discussed with the patient and he verbalized understanding and acceptance Patient was found stable and can be discharged home however he needs follow-up as an outpatient. Patient was instructed to follow up with PCP within one week and patient agrees. The patient has an appointment with his PCP Dr. Snowden on this thursday and his oncologist Dr. Farah on this thursday and he has the appointment information and he tends to follow-up Gen: patient is a AAOx3, no distress CVS: S1-S2, RRR, no murmur Lungs: B/L CTA, no wheezing Abdomen: soft, no distention, no tenderness, positive bowel sounds Extremity: no leg edema or induration Neuro: Fully awake and oriented 3, cranial nerves are grossly intact, motor and sensation examined in the upper extremity is normal. Patient has chronic paraplegia and is bedridden Time spent more than 35 minutes Patient Condition at Discharge: Stable Plan - Discharge Summary New Discharge Prescriptions: New Spironolactone [Aldactone] 50 mg PO BID #120 tab Potassium Chloride ER [K-Dur 20] 20 meq PO BID #60 tab.er.prt Continue Tamsulosin HCl [Flomax] 0.4 mg PO HS Insulin Glargine [Lantus] 20 unit SQ HS Sennosides [Senna] 8.6 mg PO AC-BID carvediloL [Coreg*] 12.5 mg PO AC-BID amLODIPine [Norvasc] 5 mg PO DAILY Losartan Potassium 100 mg PO DAILY Discharge Medication List Tamsulosin HCl [Flomax] 0.4 mg PO HS 01/26/20 [History] Insulin Glargine [Lantus] 20 unit SQ HS 04/10/20 [History] Sennosides [Senna] 8.6 mg PO AC-BID 04/10/20 [History] Losartan Potassium 100 mg PO DAILY 04/25/20 [History] amLODIPine [Norvasc] 5 mg PO DAILY 04/25/20 [History] carvediloL [Coreg*] 12.5 mg PO AC-BID 04/25/20 [History] Potassium Chloride ER [K-Dur 20] 20 meq PO BID #60 tab.er.prt 04/28/20 [Rx] Spironolactone [Aldactone] 50 mg PO BID #120 tab 04/28/20 [Rx] Follow up Appointment(s)/Referral(s): Ron Nevarez MD [STAFF PHYSICIAN] - 04/30/20 (As previously scheduled) Seema Zamora MD [STAFF PHYSICIAN] - 05/10/20 10:15 am Matt Snowden MD [Primary Care Provider] - 05/01/20 11:00 am (wwe recommend to check your potassium and magnesium level with your doctor ) Theron Martin MD [STAFF PHYSICIAN] - 05/08/20 (Call office to be seen by Thursday ) [facility] [NON-STAFF] - As Needed Ambulatory/Diagnostic Orders: Complete Blood Count w/diff [LAB.AMB] Time Frame: 3 Days, Location: None Selected Patient Instructions/Handouts: Hypokalemia (DC) Activity/Diet/Wound Care/Special Instructions: Roho cushion for siting in wheelchair. Insurance may cover otherwise purchase from [employer] resume previous diet , we encourage consuming more fruit and vegetable as they are rich in potassium and magnesium eg orange and banana activity is limited till you see your doctor Discharge Disposition: HOME SELF-CARE Plan of Treatment: HAVE BLOOD DRAWN ON THURSDAY, April BMP
[2020-04-29] MEDS ORDERED: SPIRONOLACTONE 25 MG TAB PO SCH (09:00)
== END 2020-04-28 17:32 | disposition home or self-care (01) | DRG 641 ==
LOC: EC 13:27 → 3SCARD 16:16
PROVIDERS: ADMIT Family Medicine; ATTEND Family Medicine
DX: E87.6 Hypokalemia (principal); C34.12 Malignant neoplasm of upper lobe, left bronchus or lung; G70.80 Lambert-Eaton syndrome, unspecified; G82.20 Paraplegia, unspecified; E11.65 Type 2 diabetes mellitus with hyperglycemia; E11.622 Type 2 diabetes mellitus with other skin ulcer; E78.00 Pure hypercholesterolemia, unspecified; E78.5 Hyperlipidemia, unspecified; E87.3 Alkalosis; G13.0 Paraneoplastic neuromyopathy and neuropathy; Z74.01 Bed confinement status; H91.90 Unspecified hearing loss, unspecified ear; I10 Essential (primary) hypertension; I25.10 Atherosclerotic heart disease of native coronary artery without angina pectoris; I45.10 Unspecified right bundle-branch block; L89.152 Pressure ulcer of sacral region, stage 2; L89.302 Pressure ulcer of unspecified buttock, stage 2; L98.499 Non-pressure chronic ulcer of skin of other sites with unspecified severity; N40.0 Benign prostatic hyperplasia without lower urinary tract symptoms; Z79.4 Long term (current) use of insulin; Z79.899 Other long term (current) drug therapy; Z87.01 Personal history of pneumonia (recurrent); R00.1 Bradycardia, unspecified; R79.89 Other specified abnormal findings of blood chemistry; G72.9 Myopathy, unspecified; N25.89 Other disorders resulting from impaired renal tubular function; H93.19 Tinnitus, unspecified ear; Z88.0 Allergy status to penicillin
CPT/HCPCS: 36415; 80048; 80053; 82088; 83735; 84132; 84133; 84244; 84484; 85025; 93005; 93306; 96365; 99285

== ENCOUNTER 2020-05-10 12:57 | Inpatient (IN) | payer BC, MEDICARE ==
--- NOTE | 2020-05-10 13:14 | ED ---
Weakness HPI - General Chief complaint: Weakness Stated complaint: cancer pt- weakness, DANISH Time Seen by Provider: 05/10/20 13:00 Source: patient Mode of arrival: wheelchair - History of Present Illness Initial comments: Patient is a 64-year-old male with past history of also lung cancer who presents emergency Department with reported weakness and difficulty breathing. The pat dieter was recently diagnosed and he received his first chemo treatment last Thursday. He is scheduled to receive chemo every third week. His oncologist is Dr. Farah. arrives majority of history. She states that since the patient's chemo injection he's gotten progressively worse. She has noted bruising to his upper extremities. He has had poor oral intake and as of today began having some increased respirations. Denies cough or no chest pain. Denies fevers or chills. No lower extremity edema. He denies headache or visual changes. Denies abdominal pain. He did have a Neulasta injection and was scheduled to have repeat laboratory studies today. - Related Data Home Medications Medication Instructions Recorded Confirmed Tamsulosin HCl [Flomax] 0.4 mg PO HS 01/26/20 05/10/20 Insulin Glargine [Lantus] 20 unit SQ HS 04/10/20 05/10/20 Sennosides [Senna] 8.6 mg PO AC-BID 04/10/20 05/10/20 Losartan Potassium 100 mg PO DAILY 04/25/20 05/10/20 amLODIPine [Norvasc] 5 mg PO DAILY 04/25/20 05/10/20 carvediloL [Coreg*] 12.5 mg PO AC-BID 04/25/20 05/10/20 Fluconazole [Diflucan] See Taper PO DIRECTED 05/10/20 05/10/20 Mouth Compound Mix 5 ml PO QID 05/10/20 05/10/20 Potassium Chloride ER [K-Dur 20] 40 meq PO BID 05/10/20 05/10/20 polyethylene glycoL 3350 [Miralax] 17 gm PO DAILY PRN 05/10/20 05/10/20 Previous Rx's Medication Instructions Recorded Spironolactone [Aldactone] 50 mg PO BID #120 tab 04/28/20 Allergies Allergy/AdvReac Type Severity Reaction Status Date / Time Penicillins Allergy Rash/Hives Verified 05/10/20 14:42 Review of Systems ROS Statement: Those systems with pertinent positive or pertinent negative responses have been documented in the HPI. ROS Other: All systems not noted in ROS Statement are negative. Past Medical History Past Medical History: Cancer, Diabetes Mellitus, Hearing Disorder / Deafness, Hyperlipidemia, Hypertension, Osteoarthritis (OA) Additional Past Medical History / Comment(s): Enlarged prostate. I have a disease, not sure of the name but causes numbness, tingling and weakness in legs and arms, use a wheelcahir. No CPAP use. Tinnitus. Lung CA 04/2020 History of Any Multi-Drug Resistant Organisms: None Reported Past Surgical History: No Surgical Hx Reported Additional Past Surgical History / Comment(s): "Had some muscle taken out of left thigh area for testing". Lung biopsy Past Anesthesia/Blood Transfusion Reactions: No Reported Reaction Past Psychological History: No Psychological Hx Reported Smoking Status: Never smoker Past Alcohol Use History: None Reported Past Drug Use History: None Reported - Past Family History Mother Family Medical History: No Reported History General Exam General appearance: alert, in no apparent distress Head exam: Present: atraumatic, normocephalic, normal inspection Eye exam: Present: normal appearance, PERRL, EOMI. Absent: scleral icterus, conjunctival injection, periorbital swelling ENT exam: Present: normal exam, mucous membranes moist Neck exam: Present: normal inspection. Absent: tenderness, meningismus, lymphadenopathy Respiratory exam: Present: normal lung sounds bilaterally. Absent: respiratory distress, wheezes, rales, rhonchi, stridor Cardiovascular Exam: Present: normal rhythm, tachycardia, normal heart sounds. Absent: systolic murmur, diastolic murmur, rubs, gallop, clicks GI/Abdominal exam: Present: soft, normal bowel sounds. Absent: distended, tenderness, guarding, rebound, rigid Extremities exam: Present: normal inspection, full ROM, normal capillary refill. Absent: tenderness, pedal edema, joint swelling, calf tenderness Back exam: Present: normal inspection Neurological exam: Present: alert, oriented X3, CN II-XII intact Psychiatric exam: Present: normal affect, normal mood Skin exam: Present: warm, dry, intact, normal color. Absent: rash Course Vital Signs 05/10/20 05/10/20 05/10/20 12:59 15:38 16:40 Temperature 100 F H Pulse Rate 109 H 101 H 99 Respiratory 20 18 18 Rate Blood Pressure 106/69 104/71 93/61 O2 Sat by Pulse 97 92 L 97 Oximetry 05/10/20 18:01 Temperature 99.5 F Pulse Rate 104 H Respiratory 18 Rate Blood Pressure 108/71 O2 Sat by Pulse 95 Oximetry EKG Findings - EKG Comments: EKG Findings:: EKG demonstrates sinus tachycardia with a rate of 102. RI interval 122. QRS 114. QTC of 450. No acute ST segment elevations or depressions Medical Decision Making - Medical Decision Making Upon arrival patient is placed into room 6. There are history and physical exam was performed. IV is established. Patient given 2 L bolus of normal saline. Laboratory studies were conducted. Lab studies are remarkable for a pancytopenia. Glucose is only 68. Lactic acid 2.2. CTA was performed of the patient's chest due to tachycardia and shortness of breath which demonstrates enlarging pulmonary mass with a new left suprahilar mass with areas cavitation. I recommended hospital admission. Patient was admitted to Dr. Candelario Hematology and pulmonology will be on consult. Patient remained in stable condition awaiting a bed on the floor - Lab Data Result diagrams: 05/14/20 08:29 05/14/20 14:27 Lab Results 05/10/20 05/10/20 05/10/20 Range/Units 13:51 13:51 13:51 WBC 0.8 L* (3.8-10.6) k/uL RBC 3.19 L (4.30-5.90) m/uL Hgb 10.5 L D (13.0-17.5) gm/dL Hct 31.6 L (39.0-53.0) % MCV 98.9 (80.0-100.0) fL MCH 32.9 (25.0-35.0) pg MCHC 33.3 (31.0-37.0) g/dL RDW 13.7 (11.5-15.5) % Plt Count 36 L D (150-450) k/uL Differential Comment Manual Slide Review Performed Large Platelets Present PT 10.8 (9.0-12.0) sec INR 1.1 (<1.2) APTT 22.6 (22.0-30.0) sec D-Dimer 2.44 H (<0.60) mg/L FEU Sodium (137-145) mmol/L Potassium (3.5-5.1) mmol/L Chloride (98-107) mmol/L Carbon Dioxide (22-30) mmol/L Anion Gap mmol/L BUN (9-20) mg/dL Creatinine (0.66-1.25) mg/dL Est GFR (CKD-EPI)AfAm (>60 ml/min/1.73 sqM) Est GFR (CKD-EPI)NonAf (>60 ml/min/1.73 sqM) Glucose (74-99) mg/dL POC Glucose (mg/dL) (75-99) mg/dL POC Glu Founder / Ceo ID Lactic Ac Sepsis Rflx Plasma Lactic Acid Paulo (0.7-2.0) mmol/L Calcium (8.4-10.2) mg/dL Phosphorus (2.5-4.5) mg/dL Magnesium (1.6-2.3) mg/dL Total Bilirubin (0.2-1.3) mg/dL AST (17-59) U/L ALT (4-49) U/L Alkaline Phosphatase (38-126) U/L Creatine Kinase (55-170) U/L Troponin I (0.000-0.034) ng/mL NT-Pro-B Natriuret Pep pg/mL Total Protein (6.3-8.2) g/dL Albumin (3.5-5.0) g/dL Urine Color Yellow Urine Appearance Cloudy (Clear) Urine pH 8.0 (5.0-8.0) Ur Specific Friendship 1.028 (1.001-1.035) Urine Protein 1+ H (Negative) Urine Glucose (UA) Negative (Negative) Urine Ketones Negative (Negative) Urine Blood Large H (Negative) Urine Nitrite Negative (Negative) Urine Bilirubin Negative (Negative) Urine Urobilinogen 2.0 (<2.0) mg/dL Ur Leukocyte Esterase Moderate H (Negative) Urine RBC 18 H (0-5) /hpf Urine WBC 38 H (0-5) /hpf Ur Squamous Epith Cells 1 (0-4) /hpf Amorphous Sediment Rare H (None) /hpf Urine Bacteria Moderate H (None) /hpf Urine Mucus Occasional H (None) /hpf 05/10/20 05/10/20 05/10/20 Range/Units 13:51 13:51 13:51 WBC (3.8-10.6) k/uL RBC (4.30-5.90) m/uL Hgb (13.0-17.5) gm/dL Hct (39.0-53.0) % MCV (80.0-100.0) fL MCH (25.0-35.0) pg MCHC (31.0-37.0) g/dL RDW (11.5-15.5) % Plt Count (150-450) k/uL Differential Comment Manual Slide Review Large Platelets PT (9.0-12.0) sec INR (<1.2) APTT (22.0-30.0) sec D-Dimer (<0.60) mg/L FEU Sodium 134 L (137-145) mmol/L Potassium 4.8 (3.5-5.1) mmol/L Chloride 101 (98-107) mmol/L Carbon Dioxide 25 (22-30) mmol/L Anion Gap 8 mmol/L BUN 25 H (9-20) mg/dL Creatinine 0.62 L (0.66-1.25) mg/dL Est GFR (CKD-EPI)AfAm >90 (>60 ml/min/1.73 sqM) Est GFR (CKD-EPI)NonAf >90 (>60 ml/min/1.73 sqM) Glucose 68 L (74-99) mg/dL POC Glucose (mg/dL) (75-99) mg/dL POC Glu Founder / Ceo ID Lactic Ac Sepsis Rflx Plasma Lactic Acid Paulo 2.2 H* (0.7-2.0) mmol/L Calcium 7.9 L (8.4-10.2) mg/dL Phosphorus 1.0 L* (2.5-4.5) mg/dL Magnesium 1.8 (1.6-2.3) mg/dL Total Bilirubin 0.7 (0.2-1.3) mg/dL AST 26 (17-59) U/L ALT 47 (4-49) U/L Alkaline Phosphatase 145 H (38-126) U/L Creatine Kinase 22 L (55-170) U/L Troponin I 0.016 (0.000-0.034) ng/mL NT-Pro-B Natriuret Pep pg/mL Total Protein 4.8 L (6.3-8.2) g/dL Albumin 2.4 L (3.5-5.0) g/dL Urine Color Urine Appearance (Clear) Urine pH (5.0-8.0) Ur Specific Friendship (1.001-1.035) Urine Protein (Negative) Urine Glucose (UA) (Negative) Urine Ketones (Negative) Urine Blood (Negative) Urine Nitrite (Negative) Urine Bilirubin (Negative) Urine Urobilinogen (<2.0) mg/dL Ur Leukocyte Esterase (Negative) Urine RBC (0-5) /hpf Urine WBC (0-5) /hpf Ur Squamous Epith Cells (0-4) /hpf Amorphous Sediment (None) /hpf Urine Bacteria (None) /hpf Urine Mucus (None) /hpf 05/10/20 05/10/20 05/10/20 Range/Units 13:51 14:25 15:53 WBC (3.8-10.6) k/uL RBC (4.30-5.90) m/uL Hgb (13.0-17.5) gm/dL Hct (39.0-53.0) % MCV (80.0-100.0) fL MCH (25.0-35.0) pg MCHC (31.0-37.0) g/dL RDW (11.5-15.5) % Plt Count (150-450) k/uL Differential Comment Manual Slide Review Large Platelets PT (9.0-12.0) sec INR (<1.2) APTT (22.0-30.0) sec D-Dimer (<0.60) mg/L FEU Sodium (137-145) mmol/L Potassium (3.5-5.1) mmol/L Chloride (98-107) mmol/L Carbon Dioxide (22-30) mmol/L Anion Gap mmol/L BUN (9-20) mg/dL Creatinine (0.66-1.25) mg/dL Est GFR (CKD-EPI)AfAm (>60 ml/min/1.73 sqM) Est GFR (CKD-EPI)NonAf (>60 ml/min/1.73 sqM) Glucose (74-99) mg/dL POC Glucose (mg/dL) 95 (75-99) mg/dL POC Glu Founder / Ceo ID Lauren Crane Lactic Ac Sepsis Rflx Y Plasma Lactic Acid Paulo (0.7-2.0) mmol/L Calcium (8.4-10.2) mg/dL Phosphorus (2.5-4.5) mg/dL Magnesium (1.6-2.3) mg/dL Total Bilirubin (0.2-1.3) mg/dL AST (17-59) U/L ALT (4-49) U/L Alkaline Phosphatase (38-126) U/L Creatine Kinase (55-170) U/L Troponin I (0.000-0.034) ng/mL NT-Pro-B Natriuret Pep 4530 pg/mL Total Protein (6.3-8.2) g/dL Albumin (3.5-5.0) g/dL Urine Color Urine Appearance (Clear) Urine pH (5.0-8.0) Ur Specific Friendship (1.001-1.035) Urine Protein (Negative) Urine Glucose (UA) (Negative) Urine Ketones (Negative) Urine Blood (Negative) Urine Nitrite (Negative) Urine Bilirubin (Negative) Urine Urobilinogen (<2.0) mg/dL Ur Leukocyte Esterase (Negative) Urine RBC (0-5) /hpf Urine WBC (0-5) /hpf Ur Squamous Epith Cells (0-4) /hpf Amorphous Sediment (None) /hpf Urine Bacteria (None) /hpf Urine Mucus (None) /hpf Disposition Clinical Impression: Weakness, Chemotherapy induced neutropenia, Cavitary lesion of lung, Pancytopenia, Small cell lung cancer Disposition: ADMITTED IP TO THIS [facility] Condition: Serious Is patient prescribed a controlled substance at d/c from ED?: No Decision to Admit Reason: Admit from EC Decision Date: 05/10/20 Decision Time: 16:09
[2020-05-10] MEDS ORDERED: SODIUM CHLORIDE 0.9% 1,000 ML IV STA (13:29)
[2020-05-10 14:04] LABS: HCT 31.6 % (39.0-53.0); MCH 32.9 pg (25.0-35.0); MCHC 33.3 g/dL (31.0-37.0); MCV 98.9 fL (80.0-100.0); Mean Platelet Volume 10.4; RBC 3.19 m/uL (4.30-5.90); RDW 13.7 % (11.5-15.5)
[2020-05-10 14:16] LABS: HGB 10.5 gm/dL (13.0-17.5); WBC 0.8 k/uL (3.8-10.6)
[2020-05-10 14:22] LABS: INR 1.1 (<1.2); Partial Thromboplastin Time 22.6 sec (22.0-30.0); Prothrombin Time 10.8 sec (9.0-12.0)
[2020-05-10 14:24] LABS: ALT 47 U/L (4-49); AST 26 U/L (17-59); African American GFR (CKD) >90 (>60 ml/min/1.73 sqM); Albumin 2.4 g/dL (3.5-5.0); Alkaline Phosphatase 145 U/L (38-126); Anion Gap 8 mmol/L; Blood Urea Nitrogen 25 mg/dL (9-20); Calcium 7.9 mg/dL (8.4-10.2); Carbon Dioxide 25 mmol/L (22-30); Chloride 101 mmol/L (98-107); Creatine Kinase 22 U/L (55-170); Glucose 68 mg/dL (74-99); Magnesium 1.8 mg/dL (1.6-2.3); Non-African American GFR(CKD) >90 (>60 ml/min/1.73 sqM); Potassium 4.8 mmol/L (3.5-5.1); Sodium 134 mmol/L (137-145); Total Bilirubin 0.7 mg/dL (0.2-1.3); Total Protein 4.8 g/dL (6.3-8.2)
[2020-05-10 14:31] LABS: Large Platelets Present
[2020-05-10 14:32] LABS: Platelet Count 36 k/uL (150-450)
[2020-05-10 14:34] LABS: D-Dimer 2.44 mg/L FEU (<0.60)
[2020-05-10] MEDS ORDERED: DEXTROSE 50% SYRINGE 50 ML IVP STA ×2 (14:41→14:42)
--- NOTE | 2020-05-10 14:41 | XR ---
EXAMINATION TYPE: XR chest 2V DATE OF EXAM: 05/10/2020 CLINICAL HISTORY: Weakness. TECHNIQUE: Frontal and lateral view of the chest. COMPARISON: 04/11/2020 chest radiograph FINDINGS: Low lung volumes. The cardiomediastinal silhouette is not significantly changed. There is subsegmental atelectasis of the left midlung. Small right pleural effusion. No pneumothorax. IMPRESSION: 1. Small right pleural effusion. 2. Left basilar subsegmental atelectasis.
--- NOTE | 2020-05-10 15:25 | CT ---
EXAMINATION TYPE: CT chest angio for PE DATE OF EXAM: 05/10/2020 COMPARISON: Radiograph same day and PET/CT 03/13/2020 HISTORY: Shortness of breath. History of lung cancer. TECHNIQUE: Contiguous axial scanning of the performed with IV Contrast, patient injected with 100 mL of Isovue 370. Delayed images through the kidneys were obtained. Coronal/sagittal reconstructions per formed. CT DLP: 456.7 mGycm Automated exposure control for dose reduction was used. FINDINGS: Heart upper limits of normal in size without pericardial effusion. No flattening of the interventricu lar septum or reflux of contrast into the hepatic veins. Ascending aorta ectatic at 3.6 cm. Conventional arch vessel branching anatomy. Right tracheobronchial angle mass slightly larger at 6.0 x 3.5 cm versus 5.5 x 3.4 cm on 03/13/2020. There has been development of new contiguous right hilar mass measuring 3.2 x 2.6 cm. Also new left suprahilar medial upper lobe masslike opacity measuring 6.9 x 2.0 cm with areas of inte rnal cavitation. Trace pleural effusions. Prominent posterior basilar atelectasis within the lower lobes. The patient is free breathing during the scan. No large central pulmonary embolus. Remaining pulmonar y arterial branches are nondiagnostic and emboli cannot be excluded elsewhere. Borderline enlarged ca liber to the main right and left pulmonary arteries measuring up to 2.6 cm and be seen with pulmonary arterial hypertension. Visualized upper abdomen shows no gross abnormality. Bones: Bridging anterior plate spondylosis could reflect DISH or ankylosing spondylitis and should be correlated clinically. IMPRESSION: 1. THE PATIENT WAS FREE BREATHING DURING THE SCAN. NO LARGE CENTRAL PULMONARY EMBOLUS. THE LOBAR AND REMAINING BRANCHES OF THE PULMONARY ARTERIES ARE NONDIAGNOSTIC AND EMBOLI CANNOT BE EXCLUDED HERE. 2. Further correlation with patient's oncologic history is recommended. Right tracheobronchial angle mass is larger at 6.0 cm versus 5.5 cm and there is new contiguous hilar extension measuring 3.2 cm. 3. Also new is a 6.9 x 2.0 cm left suprahilar mass/consolidation with areas of cavitation. Neoplastic progression is possible. However, given that the changes have developed over the last 2 months, cons ider cavitary pneumonia and atypical mycobacterial/fungal infections as possibilities. 4. Trace pleural effusions are new. Prominent dependent areas of atelectasis.
[2020-05-10 15:54] LABS: Glucose,Whole Blood 95 mg/dL (75-99)
[2020-05-10 15:57] LABS: Amorphous Sediment,Urine Rare /hpf; Appearance,Urine Cloudy (Clear); Bacteria,Urine Moderate /hpf; Bilirubin,Urine Negative (Negative); Blood,Urine Large (Negative); Color,Urine Yellow; Glucose,Urine (UA) Negative (Negative); Ketones,Urine Negative (Negative); Leukocyte Esterase,Urine Moderate (Negative); Mucus,Urine Occasional /hpf; Nitrite,Urine Negative (Negative); Protein,Urine 1+ (Negative); RBC,Urine 18 /hpf (0-5); Specific Gravity,Urine 1.028 (1.001-1.035); Squamous Epithelial Cell,Urine 1 /hpf (0-4); WBC,Urine 38 /hpf (0-5)
[2020-05-10] MEDS ORDERED: NALOXONE 0.4 MG/ML 1 ML VIAL IV PRN (16:10)
[2020-05-10] MEDS ORDERED: VANCOMYCIN IV PER PHARMACY 1 EACH MISC MISCELLANE PRN (16:17)
[2020-05-10] MEDS ORDERED: LEVOFLOXACIN 750MG-D5W PMX 750 MG in DEXTROSE/WATER 1 150ML.BAG IVPB STA (16:17)
[2020-05-10] MEDS ORDERED: SODIUM CHLORIDE 0.9% 1,000 ML IV ONE (16:49)
[2020-05-10] MEDS ORDERED: VANCOMYCIN 1,500 MG in SODIUM CHLORIDE 0.9% 250 ML IVPB ONE (17:00)
[2020-05-10] MEDS: SODIUM CHLORIDE 0.9% 1,000 ML IV SCH (17:51)
[2020-05-10 18:08] LABS: Glucose,Whole Blood 79 mg/dL (75-99)
[2020-05-10 18:53] LABS: Glucose,Whole Blood 98 mg/dL (75-99)
[2020-05-10] MEDS ORDERED: polyethylene glycoL 3350 17 GM POWD.PACK PO PRN (20:22)
[2020-05-10 20:32] LABS: Glucose,Whole Blood 132 mg/dL (75-99)
[2020-05-10] MEDS: TAMSULOSIN 0.4 MG CAP.ER.24H PO SCH (20:59)
[2020-05-10] MEDS: POTASSIUM CHLORIDE ER 20 MEQ TAB.ER PO SCH (20:59)
[2020-05-10] MEDS: SPIRONOLACTONE 25 MG TAB PO SCH (20:59)
[2020-05-10] MEDS: INSULIN ASPART (NovoLOG) 100 UNIT/ML VIAL SQ SCH (21:01)
[2020-05-11] MEDS: VANCOMYCIN 1,250 MG in SODIUM CHLORIDE 0.9% 250 ML IVPB SCH ×3 (03:40→20:09)
[2020-05-11] MEDS: SODIUM CHLORIDE 0.9% 1,000 ML IV SCH ×2 (03:42→14:50)
[2020-05-11] MEDS: carvediloL 12.5 MG TAB PO SCH ×2 (06:06→17:53)
[2020-05-11 06:17] LABS: Glucose,Whole Blood 86 mg/dL (75-99)
[2020-05-11] MEDS: INSULIN ASPART (NovoLOG) 100 UNIT/ML VIAL SQ SCH ×4 (06:18→22:10)
[2020-05-11 07:56] LABS: HCT 26.8 % (39.0-53.0); MCH 32.2 pg (25.0-35.0); MCHC 31.8 g/dL (31.0-37.0); MCV 101.1 fL (80.0-100.0); Macrocytosis Slight; Mean Platelet Volume 13.2; RBC 2.66 m/uL (4.30-5.90); RDW 14.2 % (11.5-15.5); WBC 2.1 k/uL (3.8-10.6)
[2020-05-11 07:57] LABS: HGB 8.5 gm/dL (13.0-17.5); Platelet Count 30 k/uL (150-450)
[2020-05-11 08:11] LABS: African American GFR (CKD) >90 (>60 ml/min/1.73 sqM); Anion Gap 4 mmol/L; Blood Urea Nitrogen 24 mg/dL (9-20); Calcium 7.1 mg/dL (8.4-10.2); Carbon Dioxide 20 mmol/L (22-30); Chloride 110 mmol/L (98-107); Glucose 89 mg/dL (74-99); Non-African American GFR(CKD) >90 (>60 ml/min/1.73 sqM); Potassium 4.6 mmol/L (3.5-5.1); Sodium 134 mmol/L (137-145)
[2020-05-11] MEDS: SPIRONOLACTONE 25 MG TAB PO SCH ×2 (08:33→20:06)
[2020-05-11] MEDS: POTASSIUM CHLORIDE ER 20 MEQ TAB.ER PO SCH ×2 (08:33→20:07)
[2020-05-11] MEDS ORDERED: ENOXAPARIN 40 MG/0.4 ML SYRINGE SQ SCH (09:00)
[2020-05-11 09:02] LABS: Band Neutrophils % 15 %; Lymphocytes # (M) 0.19 k/uL (1.0-4.8); Metamyelocytes # (M) 0.21 k/uL (0); Metamyelocytes % 10 %; Monocytes # (M) 0.13 k/uL (0-1.0); Myelocytes # (M) 0.15 k/uL (0); Myelocytes % 7 %; Neutrophils % (M) 54 %; Nucleated Red Blood Cells 0 /100 WBC (0-0); Promyelocytes # (M) 0.02 k/uL (0); Promyelocytes % 1 %; Total Cells Counted 200
[2020-05-11 09:03] LABS: Large Platelets Present; Poikilocytosis (M) Present
[2020-05-11] MEDS ORDERED: FUROSEMIDE 10 MG/ML 4 ML VIAL ONE (09:36)
[2020-05-11] MEDS: FUROSEMIDE 10 MG/ML 4 ML VIAL IV SCH ×2 (09:56→18:41)
--- NOTE | 2020-05-11 10:28 | XR ---
EXAMINATION TYPE: XR chest 1V DATE OF EXAM: 05/11/2020 CLINICAL HISTORY: Cough and edema. TECHNIQUE: Single AP portable upright view of the chest is obtained. COMPARISON: Chest x-ray and CTA chest from one day earlier FINDINGS: Persistent trace fluid in the right fissure with right lung atelectasis and/or infiltrate. Right hilar mass seen better on CT versus x-ray. There is left central mass or masslike consolidatio n silhouetting portion of thoracic aorta. Worsening left infrahilar consolidation is present. Persist ent low lung volumes. No pleural effusion or pneumothorax bilaterally. Cardiac silhouette size stable and upper limits of normal. High riding humeral head consistent with chronic rotator cuff tear noted . IMPRESSION: Low lung volumes redemonstrated. Persistent perihilar masses or masslike consolidation. P ersistent small right mid lung pleural fluid collection with associated atelectasis and/or infiltrate . Worsening left infrahilar acute infiltrate.
[2020-05-11] MEDS ORDERED: CEFEPIME 2 GM in SODIUM CHLORIDE 0.9% 100 ML IVPB ONE (10:45)
--- NOTE | 2020-05-11 11:38 | US ---
EXAMINATION TYPE: US venous doppler duplex LE BI DATE OF EXAM: 05/11/2020 11:27 AM COMPARISON: US bilateral February 19, 2020 CLINICAL HISTORY: rule out DVT. Bilateral LE swelling; HX of lung masses - on chemo. SIDE PERFORMED: Bilateral TECHNIQUE: The lower extremity deep venous system is examined utilizing real time linear array sonog keith with graded compression, doppler sonography and color-flow sonography. VESSELS IMAGED: Common Femoral Vein Deep Femoral Vein Greater Saphenous Vein * Femoral Vein Popliteal Vein Small Saphenous Vein * Proximal Calf Veins (* superficial vessels) Tech findings reported RNGlo, at exam's end. Right Leg: is Positive for non occluding DVT right CFV, upper Deep Femoral Vein, mid Femoral Vein. Left Leg: Thickened valve/wall echoes noted at upper Femoral Vein valve site, but left leg is patent with Color Flow and deep vein system compresses. Moderate subcutaneous edema noted distally in the right lower extremity on today's images. IMPRESSION: New partially occlusive acute DVT in the right lower extremity as detailed above.
--- NOTE | 2020-05-11 11:40 | P.CONS ---
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 CT scan of chest done on 03/08/2020 revealed 3.6 cm right suprahilar mass,2.2 cm right hilar node and 2.2 cm right pretracheal node. On 03/13/2020,PET scan revealed suspicious uptake in right suprahilar mass,right hilar and pretracheal node,left adrenal gland showed fat containing mass with symmetric uptake,SUV 6.3 and symmetric uptake of 5.3 in right adrenal gland thickening. On 04/11/2020,he underwent navigavitional bronchoscopy,transbronchial biopsy was positive for SCLCA,CT scan same day revealed a new 1.5 cm SAVANA lesion. He is very weak,significant generalized muscle weakness. He received Cycle one of Carboplatin and Etoposide with Neulasta on 04/30-05/02. He presented to the hospital on 05/10 with worsening weakness, lethargy. Overnight flash pulmonary edema. CTA negative for PE, Lower extremity doppler Urinalysis in office on 05/09 positive with culture and sensitivity resulted. On Abx with coverage Review of Systems ROS unobtainable: due to mental status Past Medical History Past Medical History: Cancer, Diabetes Mellitus, Hearing Disorder / Deafness, Hyperlipidemia, Hypertension, Osteoarthritis (OA) Additional Past Medical History / Comment(s): Enlarged prostate. I have a disease, not sure of the name but causes numbness, tingling and weakness in legs and arms, use a wheelcahir. No CPAP use. Tinnitus. Lung CA 04/2020 History of Any Multi-Drug Resistant Organisms: None Reported Past Surgical History: No Surgical Hx Reported Additional Past Surgical History / Comment(s): "Had some muscle taken out of left thigh area for testing". Lung biopsy Past Anesthesia/Blood Transfusion Reactions: No Reported Reaction Past Psychological History: No Psychological Hx Reported Smoking Status: Never smoker Past Alcohol Use History: None Reported Past Drug Use History: None Reported - Past Family History Mother Family Medical History: No Reported History Medications and Allergies Home Medications Medication Instructions Recorded Confirmed Type Tamsulosin HCl [Flomax] 0.4 mg PO HS 01/26/20 05/10/20 History Insulin Glargine [Lantus] 20 unit SQ HS 04/10/20 05/10/20 History Sennosides [Senna] 8.6 mg PO AC-BID 04/10/20 05/10/20 History Losartan Potassium 100 mg PO DAILY 04/25/20 05/10/20 History amLODIPine [Norvasc] 5 mg PO DAILY 04/25/20 05/10/20 History carvediloL [Coreg*] 12.5 mg PO AC-BID 04/25/20 05/10/20 History Spironolactone [Aldactone] 50 mg PO BID #120 tab 04/28/20 05/10/20 Rx Fluconazole [Diflucan] See Taper PO DIRECTED 05/10/20 05/10/20 History Mouth Compound Mix 5 ml PO QID 05/10/20 05/10/20 History Potassium Chloride ER [K-Dur 20] 40 meq PO BID 05/10/20 05/10/20 History polyethylene glycoL 3350 [Miralax] 17 gm PO DAILY PRN 05/10/20 05/10/20 History Allergies Allergy/AdvReac Type Severity Reaction Status Date / Time Penicillins Allergy Rash/Hives Verified 05/10/20 14:42 Physical Exam Vitals: Vital Signs Temp Pulse Pulse Resp BP BP Pulse Ox 05/11/20 10:24 93 L 05/11/20 08:37 93 L 05/11/20 08:30 98 F 99 20 111/65 92 L 05/11/20 04:00 98.2 F 92 18 98/58 93 L 05/10/20 23:55 91 18 05/10/20 23:53 98.0 F 91 18 90/52 97 05/10/20 20:00 98.3 F 97 18 88/54 93 L 05/10/20 19:00 98.2 F 108 H 22 114/66 93 L 05/10/20 18:01 99.5 F 104 H 18 108/71 95 05/10/20 16:40 99 18 93/61 97 05/10/20 15:38 101 H 18 104/71 92 L 05/10/20 12:59 100 F H 109 H 20 106/69 97 Intake and Output 05/10/20 05/11/20 05/11/20 22:59 06:59 14:59 Intake Total 800 Output Total 401 100 500 Balance -401 700 -500 Intake: IV 800 0.9 800 Output: Urine 400 100 500 Stool 1 Other: Voiding Method Urinal Urinal # Voids 1 1 Weight 79.379 kg 90 kg General: Lethargic weak, comfortable appearance. Head: Normocephalic, atraumatic. Eyes: Symmetric. Pupils equal round. Ears: Symmetric. EAGLE Mouth: Dry Neck: Supple. Cardiac: Tachy Lungs: Diminished Abdomen: Soft active nontender. Extremities: Atrophy to muscular tone. + BLE edema Neurological: Mental status: cooperative, pleasant. Cranial nerves: Symmetric facial Motor: does not elevate them or move legs. Mobility: Wheelchair at baseline Results CBC & Chem 7: 05/11/20 20:00 05/11/20 07:30 Labs: Abnormal Lab Results - Last 24 Hours (Table) 05/10/20 05/10/20 05/10/20 Range/Units 13:51 13:51 13:51 WBC 0.8 L* (3.8-10.6) k/uL RBC 3.19 L (4.30-5.90) m/uL Hgb 10.5 L D (13.0-17.5) gm/dL Hct 31.6 L (39.0-53.0) % MCV (80.0-100.0) fL Plt Count 36 L D (150-450) k/uL Lymphocytes # (Manual) (1.0-4.8) k/uL Metamyelocytes # (Man) (0) k/uL Myelocytes # (Manual) (0) k/uL Promyelocytes # (Man) (0) k/uL D-Dimer 2.44 H (<0.60) mg/L FEU Sodium (137-145) mmol/L Chloride (98-107) mmol/L Carbon Dioxide (22-30) mmol/L BUN (9-20) mg/dL Creatinine (0.66-1.25) mg/dL Glucose (74-99) mg/dL POC Glucose (mg/dL) (75-99) mg/dL Plasma Lactic Acid Paulo (0.7-2.0) mmol/L Calcium (8.4-10.2) mg/dL Phosphorus (2.5-4.5) mg/dL Alkaline Phosphatase (38-126) U/L Creatine Kinase (55-170) U/L Total Protein (6.3-8.2) g/dL Albumin (3.5-5.0) g/dL Urine Protein 1+ H (Negative) Urine Blood Large H (Negative) Ur Leukocyte Esterase Moderate H (Negative) Urine RBC 18 H (0-5) /hpf Urine WBC 38 H (0-5) /hpf Amorphous Sediment Rare H (None) /hpf Urine Bacteria Moderate H (None) /hpf Urine Mucus Occasional H (None) /hpf 05/10/20 05/10/20 05/10/20 Range/Units 13:51 13:51 20:30 WBC (3.8-10.6) k/uL RBC (4.30-5.90) m/uL Hgb (13.0-17.5) gm/dL Hct (39.0-53.0) % MCV (80.0-100.0) fL Plt Count (150-450) k/uL Lymphocytes # (Manual) (1.0-4.8) k/uL Metamyelocytes # (Man) (0) k/uL Myelocytes # (Manual) (0) k/uL Promyelocytes # (Man) (0) k/uL D-Dimer (<0.60) mg/L FEU Sodium 134 L (137-145) mmol/L Chloride (98-107) mmol/L Carbon Dioxide (22-30) mmol/L BUN 25 H (9-20) mg/dL Creatinine 0.62 L (0.66-1.25) mg/dL Glucose 68 L (74-99) mg/dL POC Glucose (mg/dL) 132 H (75-99) mg/dL Plasma Lactic Acid Paulo 2.2 H* (0.7-2.0) mmol/L Calcium 7.9 L (8.4-10.2) mg/dL Phosphorus 1.0 L* (2.5-4.5) mg/dL Alkaline Phosphatase 145 H (38-126) U/L Creatine Kinase 22 L (55-170) U/L Total Protein 4.8 L (6.3-8.2) g/dL Albumin 2.4 L (3.5-5.0) g/dL Urine Protein (Negative) Urine Blood (Negative) Ur Leukocyte Esterase (Negative) Urine RBC (0-5) /hpf Urine WBC (0-5) /hpf Amorphous Sediment (None) /hpf Urine Bacteria (None) /hpf Urine Mucus (None) /hpf 05/11/20 05/11/20 Range/Units 07:30 07:30 WBC 2.1 L (3.8-10.6) k/uL RBC 2.66 L (4.30-5.90) m/uL Hgb 8.5 L D (13.0-17.5) gm/dL Hct 26.8 L (39.0-53.0) % MCV 101.1 H (80.0-100.0) fL Plt Count 30 L (150-450) k/uL Lymphocytes # (Manual) 0.19 L (1.0-4.8) k/uL Metamyelocytes # (Man) 0.21 H (0) k/uL Myelocytes # (Manual) 0.15 H (0) k/uL Promyelocytes # (Man) 0.02 H (0) k/uL D-Dimer (<0.60) mg/L FEU Sodium 134 L (137-145) mmol/L Chloride 110 H (98-107) mmol/L Carbon Dioxide 20 L (22-30) mmol/L BUN 24 H (9-20) mg/dL Creatinine 0.61 L (0.66-1.25) mg/dL Glucose (74-99) mg/dL POC Glucose (mg/dL) (75-99) mg/dL Plasma Lactic Acid Paulo (0.7-2.0) mmol/L Calcium 7.1 L (8.4-10.2) mg/dL Phosphorus (2.5-4.5) mg/dL Alkaline Phosphatase (38-126) U/L Creatine Kinase (55-170) U/L Total Protein (6.3-8.2) g/dL Albumin (3.5-5.0) g/dL Urine Protein (Negative) Urine Blood (Negative) Ur Leukocyte Esterase (Negative) Urine RBC (0-5) /hpf Urine WBC (0-5) /hpf Amorphous Sediment (None) /hpf Urine Bacteria (None) /hpf Urine Mucus (None) /hpf Microbiology - Last 24 Hours (Table) 05/10/20 16:20 Blood Culture Gram Stain - Preliminary Blood 05/10/20 16:20 Blood Culture - Final Blood 05/10/20 13:51 Urine Culture - Preliminary Urine,Voided CT scan - chest: report reviewed Venous US: report reviewed Assessment and Plan (1) Right leg DVT Current Visit: Yes Status: Acute Code(s): I82.401 - ACUTE EMBOLISM AND THOMBOS UNSP DEEP VEINS OF R LOW EXTREM SNOMED Code(s): 450973827 (2) Pancytopenia Current Visit: Yes Status: Acute Code(s): D61.818 - OTHER PANCYTOPENIA SNOMED Code(s): 447096611 (3) Small cell lung cancer Current Visit: Yes Status: Acute Priority: High Code(s): C34.90 - MALIGNANT NEOPLASM OF UNSP PART OF UNSP BRONCHUS OR LUNG SNOMED Code(s): 433469870 (4) Weakness Current Visit: Yes Status: Acute Code(s): R53.1 - WEAKNESS SNOMED Code(s): 22576015 Plan: Assessment and recommendations: Limited Stage Small Cell Lung Cancer: - Status Post cycle one Carbo/ALIGNER-16 (04/30-05/02) with Neulasta - On Hold for acute issues below Acute Right Lower Extremity DVT: - With thrombocytopenia less than 50K we are unable to anti-coagulate at this time. - Platelet transfusion for temporary increase in platelet greater than 50K, plan IVC filter. May start heparin drip if greater than 50K, no bolus. - The problem lies after recovery of this hospitalization, patient will likely continue treatment and will fall below 50K possibly in future, a filter will be needed in anticipation of future thrombocytopenia. - He did have recent hospitalization as well, where heparin prophylaxis was given. Although unlikely must consider the low probability of heparin induced thrombocytopenia with acute DVTs. Most likely related to dev of chemo and consumption from sepsis. UTI/Bacteremia: - IV antibiotics Physician attest: I have completed the full history and physical and agree with above dictation, dictated as a scribe. Addendum: - Discussed with Pulmonary plan for IVC and one hour post platelets 45K, will transfuse one unit Plt
[2020-05-11 11:54] LABS: Glucose,Whole Blood 171 mg/dL (75-99)
--- NOTE | 2020-05-11 12:16 | P.CONS ---
History of Present Illness - Reason for Consult Consult date: 05/11/20 wound care - History of Present Illness this is a 64-year-old pleasant gentleman with a history of metastatic lung cancer left-sided weakness secondary to cancer diabetes mellitus cholesterol hypertension BPH. Patient has developed a stage II pressure ulcer to the right and left gluteus. He has been seen home care who has been providing dressings for the site. Patient was seen approximately 2 weeks ago in hospital were honey alginate was ordered. Patient was tolerating well without any difficulties. Review of Systems Review Of Systems: Constitutional: No fever, no chills, no night sweats. No weight change. No weakness, fatigue or lethargy. No daytime sleepiness. Integumentary:reports wounds, no lesions. No rash or pruritus. No unusual bruising. No change in hair or nails. Past Medical History Past Medical History: Cancer, Diabetes Mellitus, Hearing Disorder / Deafness, Hyperlipidemia, Hypertension, Osteoarthritis (OA) Additional Past Medical History / Comment(s): Enlarged prostate. I have a disease, not sure of the name but causes numbness, tingling and weakness in legs and arms, use a wheelcahir. No CPAP use. Tinnitus. Lung CA 04/2020 History of Any Multi-Drug Resistant Organisms: None Reported Past Surgical History: No Surgical Hx Reported Additional Past Surgical History / Comment(s): "Had some muscle taken out of left thigh area for testing". Lung biopsy Past Anesthesia/Blood Transfusion Reactions: No Reported Reaction Past Psychological History: No Psychological Hx Reported Smoking Status: Never smoker Past Alcohol Use History: None Reported Past Drug Use History: None Reported - Past Family History Mother Family Medical History: No Reported History Medications and Allergies Home Medications Medication Instructions Recorded Confirmed Type Tamsulosin HCl [Flomax] 0.4 mg PO HS 01/26/20 05/10/20 History Insulin Glargine [Lantus] 20 unit SQ HS 04/10/20 05/10/20 History Sennosides [Senna] 8.6 mg PO AC-BID 04/10/20 05/10/20 History Losartan Potassium 100 mg PO DAILY 04/25/20 05/10/20 History amLODIPine [Norvasc] 5 mg PO DAILY 04/25/20 05/10/20 History carvediloL [Coreg*] 12.5 mg PO AC-BID 04/25/20 05/10/20 History Spironolactone [Aldactone] 50 mg PO BID #120 tab 04/28/20 05/10/20 Rx Fluconazole [Diflucan] See Taper PO DIRECTED 05/10/20 05/10/20 History Mouth Compound Mix 5 ml PO QID 05/10/20 05/10/20 History Potassium Chloride ER [K-Dur 20] 40 meq PO BID 05/10/20 05/10/20 History polyethylene glycoL 3350 [Miralax] 17 gm PO DAILY PRN 05/10/20 05/10/20 History Allergies Allergy/AdvReac Type Severity Reaction Status Date / Time Penicillins Allergy Rash/Hives Verified 05/10/20 14:42 Physical Exam Vitals: Vital Signs Temp Pulse Pulse Resp BP BP Pulse Ox 05/11/20 11:46 98 F 96 17 104/66 97 05/11/20 10:24 93 L 05/11/20 08:37 93 L 05/11/20 08:30 98 F 99 20 111/65 92 L 05/11/20 04:00 98.2 F 92 18 98/58 93 L 05/10/20 23:55 91 18 05/10/20 23:53 98.0 F 91 18 90/52 97 05/10/20 20:00 98.3 F 97 18 88/54 93 L 05/10/20 19:00 98.2 F 108 H 22 114/66 93 L 05/10/20 18:01 99.5 F 104 H 18 108/71 95 05/10/20 16:40 99 18 93/61 97 05/10/20 15:38 101 H 18 104/71 92 L 05/10/20 12:59 100 F H 109 H 20 106/69 97 Intake and Output 05/10/20 05/11/20 05/11/20 22:59 06:59 14:59 Intake Total 800 240 Output Total 401 100 500 Balance -401 700 -260 Intake: IV 800 0.9 800 Oral 240 Output: Urine 400 100 500 Stool 1 Other: Voiding Method Urinal Urinal Indwelling Catheter # Voids 1 1 Weight 79.379 kg 90 kg Physical exam: General Appearance: Alert, cooperative, no distress, appears stated age. Skin: left gluteus ulceration full-thickness pressure ulcer stage II with fat layer exposure measuring approximately 0.4 x 0.6 x 0.2 cm with granulation seen throughout the wound bed. Minimal slough. Wound edges appears to be attached to the wound base. periwound Shows erythema and maceration right gluteus ulceration full-thickness pressure ulcer stage II with fat layer exposure measuring proximal 0.3 x 0.4 x 0.1 cm granulation seen within the wound bed minimal slough noted wound edges appear to be attached wound base. all other Skin color, texture, tugor normal, no rashes or lesions. Neurologic: Alert oriented x3 Results CBC & Chem 7: 05/11/20 07:30 05/11/20 07:30 Labs: Abnormal Lab Results - Last 24 Hours (Table) 05/10/20 05/10/20 05/10/20 Range/Units 13:51 13:51 13:51 WBC 0.8 L* (3.8-10.6) k/uL RBC 3.19 L (4.30-5.90) m/uL Hgb 10.5 L D (13.0-17.5) gm/dL Hct 31.6 L (39.0-53.0) % MCV (80.0-100.0) fL Plt Count 36 L D (150-450) k/uL Lymphocytes # (Manual) (1.0-4.8) k/uL Metamyelocytes # (Man) (0) k/uL Myelocytes # (Manual) (0) k/uL Promyelocytes # (Man) (0) k/uL D-Dimer 2.44 H (<0.60) mg/L FEU Sodium (137-145) mmol/L Chloride (98-107) mmol/L Carbon Dioxide (22-30) mmol/L BUN (9-20) mg/dL Creatinine (0.66-1.25) mg/dL Glucose (74-99) mg/dL POC Glucose (mg/dL) (75-99) mg/dL Plasma Lactic Acid Paulo (0.7-2.0) mmol/L Calcium (8.4-10.2) mg/dL Phosphorus (2.5-4.5) mg/dL Alkaline Phosphatase (38-126) U/L Creatine Kinase (55-170) U/L Total Protein (6.3-8.2) g/dL Albumin (3.5-5.0) g/dL Urine Protein 1+ H (Negative) Urine Blood Large H (Negative) Ur Leukocyte Esterase Moderate H (Negative) Urine RBC 18 H (0-5) /hpf Urine WBC 38 H (0-5) /hpf Amorphous Sediment Rare H (None) /hpf Urine Bacteria Moderate H (None) /hpf Urine Mucus Occasional H (None) /hpf 05/10/20 05/10/20 05/10/20 Range/Units 13:51 13:51 20:30 WBC (3.8-10.6) k/uL RBC (4.30-5.90) m/uL Hgb (13.0-17.5) gm/dL Hct (39.0-53.0) % MCV (80.0-100.0) fL Plt Count (150-450) k/uL Lymphocytes # (Manual) (1.0-4.8) k/uL Metamyelocytes # (Man) (0) k/uL Myelocytes # (Manual) (0) k/uL Promyelocytes # (Man) (0) k/uL D-Dimer (<0.60) mg/L FEU Sodium 134 L (137-145) mmol/L Chloride (98-107) mmol/L Carbon Dioxide (22-30) mmol/L BUN 25 H (9-20) mg/dL Creatinine 0.62 L (0.66-1.25) mg/dL Glucose 68 L (74-99) mg/dL POC Glucose (mg/dL) 132 H (75-99) mg/dL Plasma Lactic Acid Paulo 2.2 H* (0.7-2.0) mmol/L Calcium 7.9 L (8.4-10.2) mg/dL Phosphorus 1.0 L* (2.5-4.5) mg/dL Alkaline Phosphatase 145 H (38-126) U/L Creatine Kinase 22 L (55-170) U/L Total Protein 4.8 L (6.3-8.2) g/dL Albumin 2.4 L (3.5-5.0) g/dL Urine Protein (Negative) Urine Blood (Negative) Ur Leukocyte Esterase (Negative) Urine RBC (0-5) /hpf Urine WBC (0-5) /hpf Amorphous Sediment (None) /hpf Urine Bacteria (None) /hpf Urine Mucus (None) /hpf 05/11/20 05/11/20 05/11/20 Range/Units 07:30 07:30 11:51 WBC 2.1 L (3.8-10.6) k/uL RBC 2.66 L (4.30-5.90) m/uL Hgb 8.5 L D (13.0-17.5) gm/dL Hct 26.8 L (39.0-53.0) % MCV 101.1 H (80.0-100.0) fL Plt Count 30 L (150-450) k/uL Lymphocytes # (Manual) 0.19 L (1.0-4.8) k/uL Metamyelocytes # (Man) 0.21 H (0) k/uL Myelocytes # (Manual) 0.15 H (0) k/uL Promyelocytes # (Man) 0.02 H (0) k/uL D-Dimer (<0.60) mg/L FEU Sodium 134 L (137-145) mmol/L Chloride 110 H (98-107) mmol/L Carbon Dioxide 20 L (22-30) mmol/L BUN 24 H (9-20) mg/dL Creatinine 0.61 L (0.66-1.25) mg/dL Glucose (74-99) mg/dL POC Glucose (mg/dL) 171 H (75-99) mg/dL Plasma Lactic Acid Paulo (0.7-2.0) mmol/L Calcium 7.1 L (8.4-10.2) mg/dL Phosphorus (2.5-4.5) mg/dL Alkaline Phosphatase (38-126) U/L Creatine Kinase (55-170) U/L Total Protein (6.3-8.2) g/dL Albumin (3.5-5.0) g/dL Urine Protein (Negative) Urine Blood (Negative) Ur Leukocyte Esterase (Negative) Urine RBC (0-5) /hpf Urine WBC (0-5) /hpf Amorphous Sediment (None) /hpf Urine Bacteria (None) /hpf Urine Mucus (None) /hpf Microbiology - Last 24 Hours (Table) 05/10/20 16:20 Blood Culture Gram Stain - Preliminary Blood 05/10/20 16:20 Blood Culture - Final Blood 05/10/20 13:51 Urine Culture - Preliminary Urine,Voided Assessment and Plan (1) Type 2 diabetes mellitus with other skin ulcer Current Visit: Yes Status: Acute Code(s): E11.622 - TYPE 2 DIABETES MELLITUS WITH OTHER SKIN ULCER; L98.499 - NON-PRESSURE CHRONIC ULCER OF SKIN OF SITES W UNSP SEVERITY SNOMED Code(s): 052932205 (2) Pressure ulcer of sacral region, stage 2 Current Visit: No Status: Acute Code(s): L89.152 - PRESSURE ULCER OF SACRAL REGION, STAGE 2 SNOMED Code(s): 511233481 Plan: apply honey alginate, saline moistened gauze, foam border gauze. Change Thursday. utilize Citrucel given for appropriate surface. Consider overlay mattress for at home. Patient was instructed to utilize a Roho cushion. Thank you for the consultation any questions please contact [facility] note has been reviewed and discussed with Dr. Shaffer and the impression and plan of care has been directed as dictated.
[2020-05-11 12:30] LABS: Reticulocyte % 0.5 % (0.5-2.0)
[2020-05-11 12:44] LABS: Magnesium 1.7 mg/dL (1.6-2.3); Phosphorus 1.3 mg/dL (2.5-4.5)
[2020-05-11 13:01] LABS: INR 1.1 (<1.2); Prothrombin Time 11.6 sec (9.0-12.0)
[2020-05-11] MEDS: FILGRASTIM-SNDZ 300 MCG/0.5 ML SYRINGE SQ SCH (13:09)
[2020-05-11] MEDS ORDERED: HEPARIN SODIUM,PORCINE 5,000 UNIT/ML 1 ML VIAL IV PRN (14:25)
[2020-05-11] MEDS ORDERED: HEPARIN SOD,PORK IN 0.45% NACL 25,000 UNIT in 0.45% NACL 1 250ML.BAG IV SCH (14:30)
--- NOTE | 2020-05-11 14:59 | P.CNPUL ---
History of Present Illness Consult date: 05/11/20 Reason for consult: dyspnea History of present illness: This is a 64-year-old male patient with a recent diagnosis of small cell lung cancer who is currently on a combination of chemotherapy including carboplatin and MEAL COOK-16. Diagnosis established on 04/11/2020 and the patient underwent a navigational bronchoscopy of the left upper lobe mass that confirmed the diagnosis. PET scan revealed suspicious uptake in the right supra hilar area and the patient has a right suprahilar mass, right hilar mass, pretracheal lymph nodes, left adrenal gland showed a mass with increased uptake in addition to uptake within the right adrenal gland. 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 The patient came in yesterday to the hospital with further weakness, generalized body weakness post systemic chemotherapy and received his first cycle of systemic chemotherapy around 5 days ago. He had an outpatient urinalysis and urine culture that was done on 05/07/2020 and was positive for Klebsiella pneumoniae. His blood cultures also showing gram-negative bacillus. The patient had a white cell count of 0.8 at time of admission and this morning his white cell count is at 2.1 with an absolute neutrophil count of 1.4K. The patient was started on IV cefepime. Earlier this morning he was having some worsening shortness of breath. He was felt to be in fluid overload and he was given a dose of Lasix 40 mg and following that he producing adequate amount of urine output. He has increased lower extremity edema and Doppler of the lower extremity be obtained. CAT scan of the chest that was repeated in the emergency department was consistent with small cell lung cancer, metastatic. Review of Systems Constitutional: Reports fatigue, Reports lethargy, Reports poor appetite, Reports weakness, Reports weight loss Eyes: denies as per HPI, denies blurred vision, denies bulging eye, denies decreased vision, denies diplopia, denies discharge, denies dry eye, denies irritation, denies itching, denies pain, denies photophobia, denies loss of peripheral vision, denies loss of vision, denies tunnel vision/blind spots Ears: deny: decreased hearing, ear discharge, earache, tinnitus Ears, nose, mouth and throat: Denies headache, Denies sore throat Breasts: absent: as per HPI, gynecomastia Cardiovascular: Reports decreased exercise tolerance, Reports dyspnea on exertion Respiratory: Reports dyspnea Gastrointestinal: Reports as per HPI Genitourinary: Reports as per HPI Musculoskeletal: Reports as per HPI Musculoskeletal: bilateral: ankle swelling, absent: ankle pain, ankle stiffness Integumentary: Reports as per HPI Neurological: Reports motor disturbance, Reports weakness Psychiatric: Reports as per HPI Endocrine: Reports as per HPI Hematologic/Lymphatic: Reports as per HPI Allergic/Immunologic: Reports as per HPI Past Medical History Past Medical History: Cancer, Diabetes Mellitus, Hearing Disorder / Deafness, Hyperlipidemia, Hypertension, Osteoarthritis (OA) Additional Past Medical History / Comment(s): Small cell lung cancer, Eaton Lamert Syndrome, BPH , JAIME and he is not using CPAP History of Any Multi-Drug Resistant Organisms: None Reported Past Surgical History: No Surgical Hx Reported Additional Past Surgical History / Comment(s): "Had some muscle taken out of left thigh area for testing". Lung biopsy Past Anesthesia/Blood Transfusion Reactions: No Reported Reaction Past Psychological History: No Psychological Hx Reported Smoking Status: Never smoker Past Alcohol Use History: None Reported Past Drug Use History: None Reported - Past Family History Mother Family Medical History: No Reported History Medications and Allergies Home Medications Medication Instructions Recorded Confirmed Type Tamsulosin HCl [Flomax] 0.4 mg PO HS 01/26/20 05/10/20 History Insulin Glargine [Lantus] 20 unit SQ HS 04/10/20 05/10/20 History Sennosides [Senna] 8.6 mg PO AC-BID 04/10/20 05/10/20 History Losartan Potassium 100 mg PO DAILY 04/25/20 05/10/20 History amLODIPine [Norvasc] 5 mg PO DAILY 04/25/20 05/10/20 History carvediloL [Coreg*] 12.5 mg PO AC-BID 04/25/20 05/10/20 History Spironolactone [Aldactone] 50 mg PO BID #120 tab 04/28/20 05/10/20 Rx Fluconazole [Diflucan] See Taper PO DIRECTED 05/10/20 05/10/20 History Mouth Compound Mix 5 ml PO QID 05/10/20 05/10/20 History Potassium Chloride ER [K-Dur 20] 40 meq PO BID 05/10/20 05/10/20 History polyethylene glycoL 3350 [Miralax] 17 gm PO DAILY PRN 05/10/20 05/10/20 History Allergies Allergy/AdvReac Type Severity Reaction Status Date / Time Penicillins Allergy Rash/Hives Verified 05/10/20 14:42 Physical Exam Vitals: Vital Signs Temp Pulse Pulse Resp BP BP Pulse Ox 05/11/20 11:46 98 F 96 17 104/66 97 05/11/20 10:24 93 L 05/11/20 08:37 93 L 05/11/20 08:30 98 F 99 20 111/65 92 L 05/11/20 04:00 98.2 F 92 18 98/58 93 L 05/10/20 23:55 91 18 05/10/20 23:53 98.0 F 91 18 90/52 97 05/10/20 20:00 98.3 F 97 18 88/54 93 L 05/10/20 19:00 98.2 F 108 H 22 114/66 93 L 05/10/20 18:01 99.5 F 104 H 18 108/71 95 05/10/20 16:40 99 18 93/61 97 05/10/20 15:38 101 H 18 104/71 92 L Intake and Output 05/10/20 05/11/20 05/11/20 22:59 06:59 14:59 Intake Total 800 480 Output Total 401 100 500 Balance -401 700 -20 Intake: IV 800 0.9 800 Oral 480 Output: Urine 400 100 500 Stool 1 Other: Voiding Method Urinal Urinal Indwelling Catheter # Voids 1 1 # Bowel Movements 1 Weight 79.379 kg 90 kg General: Lethargic weak, comfortable appearance. Head: Normocephalic, atraumatic. Eyes: Symmetric. Pupils equal round. Ears: Symmetric. JAMUL Mouth: Dry Neck: Neck was supple and without jugular venous distension, thyromegaly, or carotid bruits. Carotids were easily palpable bilaterally. There was no adenopathy. Cardiac: Cardiac exam revealed the PMI to be normally situated and sized. The rhythm was regular and no extrasystoles were noted during several minutes of auscultation. The first and second heart sounds were normal and physiologic splitting of the second heart sound was noted. There were no murmurs, rubs, clicks, or gallops. Lungs: Lungs are diminished bilaterally without that is significant wheezes overall currently crackles. Abdomen:Abdominal exam revealed normal bowel sounds. The abdomen was soft, non- tender, and without masses, organomegaly, or appreciable enlargement of the abdominal aorta. Extremities: Atrophy to muscular tone. The patient is +1 pitting edema lower extremities bilaterally. No cyanosis or clubbing. Neurological: Mental status: cooperative, pleasant. Cranial nerves: Symmetric facial Motor: does not elevate them or move legs. Mobility: Wheelchair at baseline Results - Laboratory Findings CBC and BMP: 05/11/20 07:30 05/11/20 07:30 PT/INR, D-dimer PT 11.6 sec (9.0-12.0) 05/11/20 12:02 INR 1.1 (<1.2) 05/11/20 12:02 D-Dimer 2.44 mg/L FEU (<0.60) H 05/10/20 13:51 Abnormal lab findings: Abnormal Labs 05/10/20 05/10/20 05/10/20 13:51 13:51 13:51 WBC 0.8 L* RBC 3.19 L Hgb 10.5 L D Hct 31.6 L MCV Plt Count 36 L D Lymphocytes # (Manual) Metamyelocytes # (Man) Myelocytes # (Manual) Promyelocytes # (Man) Fibrinogen D-Dimer 2.44 H Sodium Chloride Carbon Dioxide BUN Creatinine Glucose POC Glucose (mg/dL) Plasma Lactic Acid Paulo Calcium Phosphorus Alkaline Phosphatase Lactate Dehydrogenase Creatine Kinase Total Protein Albumin Urine Protein 1+ H Urine Blood Large H Ur Leukocyte Esterase Moderate H Urine RBC 18 H Urine WBC 38 H Amorphous Sediment Rare H Urine Bacteria Moderate H Urine Mucus Occasional H 05/10/20 05/10/20 05/10/20 13:51 13:51 20:30 WBC RBC Hgb Hct MCV Plt Count Lymphocytes # (Manual) Metamyelocytes # (Man) Myelocytes # (Manual) Promyelocytes # (Man) Fibrinogen D-Dimer Sodium 134 L Chloride Carbon Dioxide BUN 25 H Creatinine 0.62 L Glucose 68 L POC Glucose (mg/dL) 132 H Plasma Lactic Acid Paulo 2.2 H* Calcium 7.9 L Phosphorus 1.0 L* Alkaline Phosphatase 145 H Lactate Dehydrogenase Creatine Kinase 22 L Total Protein 4.8 L Albumin 2.4 L Urine Protein Urine Blood Ur Leukocyte Esterase Urine RBC Urine WBC Amorphous Sediment Urine Bacteria Urine Mucus 05/11/20 05/11/20 05/11/20 07:30 07:30 11:51 WBC 2.1 L RBC 2.66 L Hgb 8.5 L D Hct 26.8 L MCV 101.1 H Plt Count 30 L Lymphocytes # (Manual) 0.19 L Metamyelocytes # (Man) 0.21 H Myelocytes # (Manual) 0.15 H Promyelocytes # (Man) 0.02 H Fibrinogen D-Dimer Sodium 134 L Chloride 110 H Carbon Dioxide 20 L BUN 24 H Creatinine 0.61 L Glucose POC Glucose (mg/dL) 171 H Plasma Lactic Acid Paulo Calcium 7.1 L Phosphorus Alkaline Phosphatase Lactate Dehydrogenase Creatine Kinase Total Protein Albumin Urine Protein Urine Blood Ur Leukocyte Esterase Urine RBC Urine WBC Amorphous Sediment Urine Bacteria Urine Mucus 05/11/20 05/11/20 12:02 12:02 WBC RBC Hgb Hct MCV Plt Count Lymphocytes # (Manual) Metamyelocytes # (Man) Myelocytes # (Manual) Promyelocytes # (Man) Fibrinogen 717 H D-Dimer Sodium Chloride Carbon Dioxide BUN Creatinine Glucose POC Glucose (mg/dL) Plasma Lactic Acid Paulo Calcium Phosphorus 1.3 L Alkaline Phosphatase Lactate Dehydrogenase 829 H Creatine Kinase Total Protein Albumin Urine Protein Urine Blood Ur Leukocyte Esterase Urine RBC Urine WBC Amorphous Sediment Urine Bacteria Urine Mucus - Diagnostic Findings Chest x-ray: image reviewed CT scan - chest: image reviewed Assessment and Plan Plan: 1 septic shock likely secondary to underlying UTI. The patient is has a Klebsiella pneumonia UTI and gram-negative bacillus in the blood awaiting final cultures. 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 Proceed with IV cefepime 2 g every 12 hours May discontinue the vancomycin Agree on gentle diuresis 40 mg every 12 hours of IV Lasix and this may be tapered off as of tomorrow Filgrastim regarding the neutropenia Prognosis poor baseline above-mentioned comorbidities and metastatic small cell lung cancer. We'll continue to follow.
[2020-05-11 17:16] LABS: Glucose,Whole Blood 199 mg/dL (75-99)
[2020-05-11] MEDS: TAMSULOSIN 0.4 MG CAP.ER.24H PO SCH (20:08)
[2020-05-11 20:25] LABS: HCT 26.2 % (39.0-53.0); HGB 8.5 gm/dL (13.0-17.5); MCHC 32.6 g/dL (31.0-37.0); MCV 101.3 fL (80.0-100.0); Macrocytosis Slight; Mean Platelet Volume 11.3; RBC 2.59 m/uL (4.30-5.90); WBC 4.1 k/uL (3.8-10.6)
[2020-05-11 20:27] LABS: Glucose,Whole Blood 275 mg/dL (75-99)
[2020-05-11 20:39] LABS: Platelet Count 45 k/uL (150-450)
[2020-05-11 20:53] LABS: % Iron Saturation 14.17 (15.00-50.00)
[2020-05-11] MEDS ORDERED: CEFEPIME 2 GM in SODIUM CHLORIDE 0.9% 100 ML IVPB SCH (21:00)
[2020-05-11 21:26] LABS: Ferritin 3935.2 ng/mL (22.0-322.0)
[2020-05-11] MEDS: FONDAPARINUX 2.5 MG/0.5 ML SYRINGE SQ SCH (23:19)
--- NOTE | 2020-05-11 23:44 | P.HPIM ---
History of Present Illness H&P Date: 05/11/20 Chief Complaint: weakness, shortness of breath Eitan Quezada is a 64 yo M with history of recently diagnosed small cell lung cancer with related lambert-eaton syndrome who presented to the hospital with worsening weakness, malaise and shortness of breath. He is approx 7 days s/p his first cycle of carboplatin and etoposide and feels his symptoms have worsened since that time. He has continued to experience severe weakness over the past few months. On presentation he was tachycardic and febrile, WBC 0.8k, Hgb 10.5, plt 36. CTA performed showed no PE and interval enlargement of his hilar mass to 6 cm. He was started on vancomycin and IV fluids, this morning pt complains of continued wet cough and shortness of breath. Review of Systems All systems: negative Constitutional: Reports malaise, Reports weakness, Denies chills, Denies fever Eyes: denies blurred vision, denies pain Ears, nose, mouth and throat: Denies headache, Denies sore throat Cardiovascular: Denies chest pain, Denies shortness of breath Respiratory: Reports cough, Reports cough with sputum, Reports dyspnea, Reports wheezing Gastrointestinal: Denies abdominal pain, Denies diarrhea, Denies nausea, Denies vomiting Musculoskeletal: Denies myalgias Integumentary: Denies pruritus, Denies rash Neurological: Reports numbness, Reports weakness Psychiatric: Denies anxiety, Denies depression Endocrine: Denies fatigue, Denies weight change Past Medical History Past Medical History: Cancer, Diabetes Mellitus, Hearing Disorder / Deafness, Hyperlipidemia, Hypertension, Osteoarthritis (OA) Additional Past Medical History / Comment(s): Enlarged prostate. I have a disease, not sure of the name but causes numbness, tingling and weakness in legs and arms, use a wheelcahir. No CPAP use. Tinnitus. Lung CA 04/2020 History of Any Multi-Drug Resistant Organisms: None Reported Past Surgical History: No Surgical Hx Reported Additional Past Surgical History / Comment(s): "Had some muscle taken out of left thigh area for testing". Lung biopsy Past Anesthesia/Blood Transfusion Reactions: No Reported Reaction Past Psychological History: No Psychological Hx Reported Smoking Status: Never smoker Past Alcohol Use History: None Reported Past Drug Use History: None Reported - Past Family History Mother Family Medical History: No Reported History Medications and Allergies Home Medications Medication Instructions Recorded Confirmed Type Tamsulosin HCl [Flomax] 0.4 mg PO HS 01/26/20 05/10/20 History Insulin Glargine [Lantus] 20 unit SQ HS 04/10/20 05/10/20 History Sennosides [Senna] 8.6 mg PO AC-BID 04/10/20 05/10/20 History Losartan Potassium 100 mg PO DAILY 04/25/20 05/10/20 History amLODIPine [Norvasc] 5 mg PO DAILY 04/25/20 05/10/20 History carvediloL [Coreg*] 12.5 mg PO AC-BID 04/25/20 05/10/20 History Spironolactone [Aldactone] 50 mg PO BID #120 tab 04/28/20 05/10/20 Rx Fluconazole [Diflucan] See Taper PO DIRECTED 05/10/20 05/10/20 History Mouth Compound Mix 5 ml PO QID 05/10/20 05/10/20 History Potassium Chloride ER [K-Dur 20] 40 meq PO BID 05/10/20 05/10/20 History polyethylene glycoL 3350 [Miralax] 17 gm PO DAILY PRN 05/10/20 05/10/20 History Allergies Allergy/AdvReac Type Severity Reaction Status Date / Time Penicillins Allergy Rash/Hives Verified 05/10/20 14:42 Physical Exam Vitals: Vital Signs Temp Pulse Pulse Resp BP BP Pulse Ox 05/11/20 19:39 98.3 F 92 17 107/60 94 L 05/11/20 18:23 98.5 F 110 H 20 135/79 95 05/11/20 17:53 98.5 F 102 H 18 126/72 05/11/20 17:43 98.3 F 18 127/74 94 L 05/11/20 16:35 18 05/11/20 16:32 98.5 F 98 18 103/56 94 L 05/11/20 11:46 98 F 96 17 104/66 97 05/11/20 10:24 93 L 05/11/20 08:37 93 L 05/11/20 08:30 98 F 99 20 111/65 92 L 05/11/20 04:00 98.2 F 92 18 98/58 93 L 05/10/20 23:55 91 18 05/10/20 23:53 98.0 F 91 18 90/52 97 Intake and Output 05/11/20 05/11/20 05/12/20 14:59 22:59 06:59 Intake Total 840 240 Output Total 500 1000 540 Balance 340 -760 -540 Intake: IV 360 0.9 10 Cefepime 2 gm In Sodium 100 Chloride 0.9% 100 ml @ 200 mls/hr IVPB ONCE ONE Rx#:[id number] Vancomycin 1,250 mg In 250 Sodium Chloride 0.9% 250 ml @ 125 mls/hr IVPB Q8H [facility] Rx#:[id number] Oral 480 240 Blood Product 0 Platelet Pheresis Pas 0 Psoralen Unit [id number] Output: Urine 500 1000 540 Other: Voiding Method Indwelling Catheter Indwelling Catheter # Bowel Movements 1 1 General: well nourished, well developed, NAD. Vitals reviewed Eyes: PERRL, EOMI, conjunctiva normal HENT: normocephalic, mucus membranes moist Neck: supple, no JVD Lungs: Increased respiratory effort, no wheezes. Rales at bases CV: Regular rate and rhythm, no murmur. Peripheral pulses 2+. Bilateral LE with 2+ edema Abdomen: soft, nondistended, no organomegaly Lymph: no cervical or axillary LAD Skin: warm and dry. Neuro: A&Ox3, normal mood and affect Results CBC & Chem 7: 05/11/20 20:00 05/11/20 07:30 Labs: Abnormal Lab Results - Last 24 Hours (Table) 05/11/20 05/11/20 05/11/20 Range/Units 07:30 07:30 11:51 WBC 2.1 L (3.8-10.6) k/uL RBC 2.66 L (4.30-5.90) m/uL Hgb 8.5 L D (13.0-17.5) gm/dL Hct 26.8 L (39.0-53.0) % MCV 101.1 H (80.0-100.0) fL Plt Count 30 L (150-450) k/uL Lymphocytes # (Manual) 0.19 L (1.0-4.8) k/uL Metamyelocytes # (Man) 0.21 H (0) k/uL Myelocytes # (Manual) 0.15 H (0) k/uL Promyelocytes # (Man) 0.02 H (0) k/uL Fibrinogen (200-500) mg/dL Sodium 134 L (137-145) mmol/L Chloride 110 H (98-107) mmol/L Carbon Dioxide 20 L (22-30) mmol/L BUN 24 H (9-20) mg/dL Creatinine 0.61 L (0.66-1.25) mg/dL POC Glucose (mg/dL) 171 H (75-99) mg/dL Calcium 7.1 L (8.4-10.2) mg/dL Phosphorus (2.5-4.5) mg/dL Iron (65-175) ug/dL TIBC (228-460) ug/dL % Saturation (15.00-50.00) Ferritin (22.0-322.0) ng/mL Lactate Dehydrogenase (313-618) U/L Vitamin B12 (200.0-944.0) pg/mL 05/11/20 05/11/20 05/11/20 Range/Units 12:02 12:02 17:10 WBC (3.8-10.6) k/uL RBC (4.30-5.90) m/uL Hgb (13.0-17.5) gm/dL Hct (39.0-53.0) % MCV (80.0-100.0) fL Plt Count (150-450) k/uL Lymphocytes # (Manual) (1.0-4.8) k/uL Metamyelocytes # (Man) (0) k/uL Myelocytes # (Manual) (0) k/uL Promyelocytes # (Man) (0) k/uL Fibrinogen 717 H (200-500) mg/dL Sodium (137-145) mmol/L Chloride (98-107) mmol/L Carbon Dioxide (22-30) mmol/L BUN (9-20) mg/dL Creatinine (0.66-1.25) mg/dL POC Glucose (mg/dL) 199 H (75-99) mg/dL Calcium (8.4-10.2) mg/dL Phosphorus 1.3 L (2.5-4.5) mg/dL Iron 18 L (65-175) ug/dL TIBC 127 L (228-460) ug/dL % Saturation 14.17 L (15.00-50.00) Ferritin 3935.2 H (22.0-322.0) ng/mL Lactate Dehydrogenase 829 H (313-618) U/L Vitamin B12 2765.0 H (200.0-944.0) pg/mL 05/11/20 05/11/20 Range/Units 20:00 20:26 WBC (3.8-10.6) k/uL RBC 2.59 L (4.30-5.90) m/uL Hgb 8.5 L (13.0-17.5) gm/dL Hct 26.2 L (39.0-53.0) % MCV 101.3 H (80.0-100.0) fL Plt Count 45 L (150-450) k/uL Lymphocytes # (Manual) (1.0-4.8) k/uL Metamyelocytes # (Man) (0) k/uL Myelocytes # (Manual) (0) k/uL Promyelocytes # (Man) (0) k/uL Fibrinogen (200-500) mg/dL Sodium (137-145) mmol/L Chloride (98-107) mmol/L Carbon Dioxide (22-30) mmol/L BUN (9-20) mg/dL Creatinine (0.66-1.25) mg/dL POC Glucose (mg/dL) 275 H (75-99) mg/dL Calcium (8.4-10.2) mg/dL Phosphorus (2.5-4.5) mg/dL Iron (65-175) ug/dL TIBC (228-460) ug/dL % Saturation (15.00-50.00) Ferritin (22.0-322.0) ng/mL Lactate Dehydrogenase (313-618) U/L Vitamin B12 (200.0-944.0) pg/mL Microbiology - Last 24 Hours (Table) 05/10/20 16:20 Blood Culture Gram Stain - Preliminary Blood Blood Culture - Preliminary Pseudomonas spec 05/10/20 16:20 Blood Culture - Final Blood 05/10/20 13:51 Urine Culture - Preliminary Urine,Voided Thrombosis Risk Factor Assmnt - Choose All That Apply Any of the Below Risk Factors Present?: No Other Risk Factors: Yes Each Risk Factor Represents 2 Points: Age 61-74 years Other congenital or acquired thrombophilia - If yes, enter type in comment: No Thrombosis Risk Factor Assessment Total Risk Factor Score: 2 Thrombosis Risk Factor Assessment Level: Low Risk Assessment and Plan (1) Severe sepsis with acute organ dysfunction due to Pseudomonas species Current Visit: Yes Status: Acute Code(s): A41.52 - SEPSIS DUE TO PSEUDOMONAS; R65.20 - SEVERE SEPSIS WITHOUT SEPTIC SHOCK SNOMED Code(s): 728633786473142 (2) Lambert-Eaton myasthenic syndrome Current Visit: Yes Status: Acute Code(s): G70.80 - LAMBERT-EATON SYNDROME, UNSPECIFIED SNOMED Code(s): 47591288 (3) Cavitary lesion of lung Current Visit: Yes Status: Acute Code(s): J98.4 - OTHER DISORDERS OF LUNG SNOMED Code(s): 460824819 (4) Chemotherapy induced neutropenia Current Visit: Yes Status: Acute Code(s): D70.1 - AGRANULOCYTOSIS SECONDARY TO CANCER CHEMOTHERAPY; T45.1X5A - ADVERSE EFFECT OF ANTINEOPLASTIC AND IMMUNOSUP DRUGS, INIT SNOMED Code(s): 632679849 (5) Pancytopenia Current Visit: Yes Status: Acute Code(s): D61.818 - OTHER PANCYTOPENIA SNOMED Code(s): 519231832 (6) Right leg DVT Current Visit: Yes Status: Acute Code(s): I82.401 - ACUTE EMBOLISM AND THOMBOS UNSP DEEP VEINS OF R LOW EXTREM SNOMED Code(s): 871056457 (7) Small cell lung cancer Current Visit: Yes Status: Acute Priority: High Code(s): C34.90 - MALIGNANT NEOPLASM OF UNSP PART OF UNSP BRONCHUS OR LUNG SNOMED Code(s): 753781816 (8) Pressure ulcer of sacral region, stage 2 Current Visit: No Status: Acute Code(s): L89.152 - PRESSURE ULCER OF SACRAL REGION, STAGE 2 SNOMED Code(s): 983926458 (9) Type 2 diabetes mellitus Current Visit: No Status: Acute Code(s): E11.9 - TYPE 2 DIABETES MELLITUS WITHOUT COMPLICATIONS SNOMED Code(s): 26418039 Plan: 1. Severe sepsis due to pseudomonas. Start IV zosyn, follow blood cultures 2. Chemotherapy induced neutropenia. RLE DVT in light of thrombocytopenia. Oncology consulted, appreciate recommendations 3. Pulmonary edema. Secondary to chemotherapy, start IV lasix 40 mg bid 4. Small cell lung cancer. Lambert eaton syndrome 5. CAD. Continue coreg 5. T2DM. Continue accucheck, sliding scale
[2020-05-12] MEDS: SODIUM CHLORIDE 0.9% 1,000 ML IV SCH ×3 (01:43→22:02)
[2020-05-12] MEDS ORDERED: VANCOMYCIN TROUGH DUE 1 EACH MISC MISCELLANE ONE (03:00)
[2020-05-12] MEDS: PIPERACILLIN-TAZOBACTAM 3.375 GM in SODIUM CHLORIDE 0.9% 100 ML IVPB SCH ×3 (03:39→21:04)
[2020-05-12 04:13] LABS: HCT 26.4 % (39.0-53.0); HGB 8.6 gm/dL (13.0-17.5); MCH 33.1 pg (25.0-35.0); MCHC 32.7 g/dL (31.0-37.0); MCV 101.1 fL (80.0-100.0); Macrocytosis Slight; Mean Platelet Volume 11.6; RBC 2.61 m/uL (4.30-5.90); WBC 4.7 k/uL (3.8-10.6)
[2020-05-12 04:22] LABS: Platelet Count 44 k/uL (150-450)
[2020-05-12 04:28] LABS: African American GFR (CKD) >90 (>60 ml/min/1.73 sqM); Non-African American GFR(CKD) >90 (>60 ml/min/1.73 sqM)
[2020-05-12 05:15] LABS: Anion Gap 6 mmol/L; Blood Urea Nitrogen 27 mg/dL (9-20); Calcium 7.3 mg/dL (8.4-10.2); Carbon Dioxide 20 mmol/L (22-30); Chloride 110 mmol/L (98-107); Glucose 191 mg/dL (74-99); Magnesium 1.7 mg/dL (1.6-2.3); Potassium 3.4 mmol/L (3.5-5.1); Sodium 136 mmol/L (137-145)
[2020-05-12 05:30] LABS: Nucleated Red Blood Cells 0 /100 WBC (0-0)
[2020-05-12 05:34] LABS: Band Neutrophils % 29 %; Lymphocytes # (M) 0.19 k/uL (1.0-4.8); Metamyelocytes # (M) 0.14 k/uL (0); Metamyelocytes % 3 %; Monocytes # (M) 0.47 k/uL (0-1.0); Myelocytes # (M) 0.09 k/uL (0); Myelocytes % 2 %; Neutrophils % (M) 51 %
[2020-05-12 05:39] LABS: Blast Cells # (M) 0.09 k/uL (0); Total Cells Counted 200
[2020-05-12 05:40] LABS: Rouleaux Present; Tear Drop Cells Present
[2020-05-12 06:11] LABS: Glucose,Whole Blood 202 mg/dL (75-99)
[2020-05-12] MEDS: carvediloL 12.5 MG TAB PO SCH (06:31)
[2020-05-12] MEDS: INSULIN ASPART (NovoLOG) 100 UNIT/ML VIAL SQ SCH ×4 (06:31→21:44)
[2020-05-12] MEDS: POTASSIUM CHLORIDE ER 20 MEQ TAB.ER PO SCH ×2 (09:12→21:03)
[2020-05-12] MEDS: SPIRONOLACTONE 25 MG TAB PO SCH ×2 (09:15→21:03)
[2020-05-12] MEDS ORDERED: SODIUM CHLORIDE 0.9% 1,000 ML IV ONE (10:10)
--- NOTE | 2020-05-12 11:19 | P.GSCN ---
History of Present Illness Consult date: 05/12/20 History of present illness: Eitan is a 64-year-old male with a recent diagnosis of small cell lung cancer undergoing chemotherapy. He just recently underwent his first treatment and was found to be significantly thrombocytopenic. He came to the hospital with generalized weakness. He had an outpatient urinalysis which was positive for Klebsiella pneumonia on 05/07/2020 he also had blood cultures taken which showed gram-negative bacilli, resulting in Pseudomonas done on 05/10/2020. He had increasing edema of the lower extremities and was found to have acute thrombus in his right common femoral vein, deep and mid femoral vein on ultrasound. Given his thrombocytopenia, hematology was consult and recommended placement of a filter. The patient denies any fevers, chills, nausea, vomiting. Weakness seems to be his only complaint Review of Systems 14 point review of systems performed. Pertinent positives and negatives per the HPI Past Medical History Past Medical History: Cancer, Diabetes Mellitus, Hearing Disorder / Deafness, Hyperlipidemia, Hypertension, Osteoarthritis (OA) Additional Past Medical History / Comment(s): Enlarged prostate. I have a disease, not sure of the name but causes numbness, tingling and weakness in legs and arms, use a wheelcahir. No CPAP use. Tinnitus. Lung CA 04/2020 History of Any Multi-Drug Resistant Organisms: None Reported Past Surgical History: No Surgical Hx Reported Additional Past Surgical History / Comment(s): "Had some muscle taken out of lef t thigh area for testing". Lung biopsy Past Anesthesia/Blood Transfusion Reactions: No Reported Reaction Past Psychological History: No Psychological Hx Reported Smoking Status: Never smoker Past Alcohol Use History: None Reported Past Drug Use History: None Reported - Past Family History Mother Family Medical History: No Reported History Medications and Allergies Home Medications Medication Instructions Recorded Confirmed Type Tamsulosin HCl [Flomax] 0.4 mg PO HS 01/26/20 05/10/20 History Insulin Glargine [Lantus] 20 unit SQ HS 04/10/20 05/10/20 History Sennosides [Senna] 8.6 mg PO AC-BID 04/10/20 05/10/20 History Losartan Potassium 100 mg PO DAILY 04/25/20 05/10/20 History amLODIPine [Norvasc] 5 mg PO DAILY 04/25/20 05/10/20 History carvediloL [Coreg*] 12.5 mg PO AC-BID 04/25/20 05/10/20 History Spironolactone [Aldactone] 50 mg PO BID #120 tab 04/28/20 05/10/20 Rx Fluconazole [Diflucan] See Taper PO DIRECTED 05/10/20 05/10/20 History Mouth Compound Mix 5 ml PO QID 05/10/20 05/10/20 History Potassium Chloride ER [K-Dur 20] 40 meq PO BID 05/10/20 05/10/20 History polyethylene glycoL 3350 [Miralax] 17 gm PO DAILY PRN 05/10/20 05/10/20 History Allergies Allergy/AdvReac Type Severity Reaction Status Date / Time Penicillins Allergy Rash/Hives Verified 05/10/20 14:42 Surgical - Exam Vital Signs Temp Pulse Resp BP Pulse Ox 100 F H 109 H 20 106/69 97 05/10/20 12:59 05/10/20 12:59 05/10/20 12:59 05/10/20 12:59 05/10/20 12:59 Gen. is a pleasant cooperative male, chronically ill-appearing in no acute distress. HEENT is normocephalic, atraumatic, extraocular motion intact. Heart is regular in rate and rhythm at this time. Lungs with decreased breath sounds bilaterally but relatively clear. Abdomen soft, nontender nondistended. Extremity show no clubbing or cyanosis. There is mild bilateral lower extremity edema. Palpable radial pulses bilaterally. Normal capillary refill, lower extremity is warm and dry. Normal mood and affect. Cranial nerves II through XII grossly intact Results Ultrasound results and laboratories are reviewed - Labs 05/12/20 03:24 05/12/20 03:24 Abnormal Lab Results - Last 24 Hours (Table) 05/11/20 05/11/20 05/11/20 Range/Units 11:51 12:02 12:02 RBC (4.30-5.90) m/uL Hgb (13.0-17.5) gm/dL Hct (39.0-53.0) % MCV (80.0-100.0) fL Plt Count (150-450) k/uL Blast Cells % % Lymphocytes # (Manual) (1.0-4.8) k/uL Metamyelocytes # (Man) (0) k/uL Myelocytes # (Manual) (0) k/uL Blast Cells # (Man) (0) k/uL Fibrinogen 717 H (200-500) mg/dL Sodium (137-145) mmol/L Potassium (3.5-5.1) mmol/L Chloride (98-107) mmol/L Carbon Dioxide (22-30) mmol/L BUN (9-20) mg/dL Glucose (74-99) mg/dL POC Glucose (mg/dL) 171 H (75-99) mg/dL Calcium (8.4-10.2) mg/dL Phosphorus 1.3 L (2.5-4.5) mg/dL Iron 18 L (65-175) ug/dL TIBC 127 L (228-460) ug/dL % Saturation 14.17 L (15.00-50.00) Ferritin 3935.2 H (22.0-322.0) ng/mL Lactate Dehydrogenase 829 H (313-618) U/L Vitamin B12 2765.0 H (200.0-944.0) pg/mL 05/11/20 05/11/20 05/11/20 Range/Units 17:10 20:00 20:26 RBC 2.59 L (4.30-5.90) m/uL Hgb 8.5 L (13.0-17.5) gm/dL Hct 26.2 L (39.0-53.0) % MCV 101.3 H (80.0-100.0) fL Plt Count 45 L (150-450) k/uL Blast Cells % % Lymphocytes # (Manual) (1.0-4.8) k/uL Metamyelocytes # (Man) (0) k/uL Myelocytes # (Manual) (0) k/uL Blast Cells # (Man) (0) k/uL Fibrinogen (200-500) mg/dL Sodium (137-145) mmol/L Potassium (3.5-5.1) mmol/L Chloride (98-107) mmol/L Carbon Dioxide (22-30) mmol/L BUN (9-20) mg/dL Glucose (74-99) mg/dL POC Glucose (mg/dL) 199 H 275 H (75-99) mg/dL Calcium (8.4-10.2) mg/dL Phosphorus (2.5-4.5) mg/dL Iron (65-175) ug/dL TIBC (228-460) ug/dL % Saturation (15.00-50.00) Ferritin (22.0-322.0) ng/mL Lactate Dehydrogenase (313-618) U/L Vitamin B12 (200.0-944.0) pg/mL 05/12/20 05/12/20 05/12/20 Range/Units 03:24 03:24 06:09 RBC 2.61 L (4.30-5.90) m/uL Hgb 8.6 L (13.0-17.5) gm/dL Hct 26.4 L (39.0-53.0) % MCV 101.1 H (80.0-100.0) fL Plt Count 44 L (150-450) k/uL Blast Cells % 2 H* % Lymphocytes # (Manual) 0.19 L (1.0-4.8) k/uL Metamyelocytes # (Man) 0.14 H (0) k/uL Myelocytes # (Manual) 0.09 H (0) k/uL Blast Cells # (Man) 0.09 H (0) k/uL Fibrinogen (200-500) mg/dL Sodium 136 L (137-145) mmol/L Potassium 3.4 L (3.5-5.1) mmol/L Chloride 110 H (98-107) mmol/L Carbon Dioxide 20 L (22-30) mmol/L BUN 27 H (9-20) mg/dL Glucose 191 H (74-99) mg/dL POC Glucose (mg/dL) 202 H (75-99) mg/dL Calcium 7.3 L (8.4-10.2) mg/dL Phosphorus (2.5-4.5) mg/dL Iron (65-175) ug/dL TIBC (228-460) ug/dL % Saturation (15.00-50.00) Ferritin (22.0-322.0) ng/mL Lactate Dehydrogenase (313-618) U/L Vitamin B12 (200.0-944.0) pg/mL Microbiology - Last 24 Hours (Table) 05/10/20 13:51 Urine Culture - Preliminary Urine,Voided Gram Neg Bacilli 05/10/20 16:20 Blood Culture Gram Stain - Preliminary Blood Blood Culture - Preliminary Pseudomonas spec 05/10/20 16:20 Blood Culture - Final Blood Diabetes panel 05/12/20 Range/Units 03:24 Sodium 136 L (137-145) mmol/L Potassium 3.4 L (3.5-5.1) mmol/L Chloride 110 H (98-107) mmol/L Carbon Dioxide 20 L (22-30) mmol/L BUN 27 H (9-20) mg/dL Creatinine 0.87 (0.66-1.25) mg/dL Glucose 191 H (74-99) mg/dL Calcium 7.3 L (8.4-10.2) mg/dL Calcium panel 05/11/20 05/12/20 Range/Units 12:02 03:24 Calcium 7.3 L (8.4-10.2) mg/dL Phosphorus 1.3 L (2.5-4.5) mg/dL Pituitary panel 05/12/20 Range/Units 03:24 Sodium 136 L (137-145) mmol/L Potassium 3.4 L (3.5-5.1) mmol/L Chloride 110 H (98-107) mmol/L Carbon Dioxide 20 L (22-30) mmol/L BUN 27 H (9-20) mg/dL Creatinine 0.87 (0.66-1.25) mg/dL Glucose 191 H (74-99) mg/dL Calcium 7.3 L (8.4-10.2) mg/dL Adrenal panel 05/12/20 Range/Units 03:24 Sodium 136 L (137-145) mmol/L Potassium 3.4 L (3.5-5.1) mmol/L Chloride 110 H (98-107) mmol/L Carbon Dioxide 20 L (22-30) mmol/L BUN 27 H (9-20) mg/dL Creatinine 0.87 (0.66-1.25) mg/dL Glucose 191 H (74-99) mg/dL Calcium 7.3 L (8.4-10.2) mg/dL Assessment and Plan Assessment: #1 right lower extremity common, deep and mid femoral vein DVT #2 thrombocytopenia #3 Pseudomonas bacteremia #4 Klebsiella UTI Plan: Lungs his was had with the patient as well as with hematology and his primary care. I do agree that he would be best benefited by placement of a removable IVC filter although at this time I believe he would benefit from further antibiotics prior to placement given his Pseudomonas bacteremia. This was conveyed to infectious disease and hematology. It was also discussed with the patient. Given the fact she is inpatient, at this time we will be able to supplement his platelets as needed to adequately anticoagulate him but going forward he will need this filter placed. We will hopefully plan to do this early next week after appropriate antibiotics. Will discuss with infectious disease regarding timing.
[2020-05-12] MEDS: FUROSEMIDE 10 MG/ML 4 ML VIAL IV SCH ×2 (11:38→21:03)
[2020-05-12] MEDS: FILGRASTIM-SNDZ 300 MCG/0.5 ML SYRINGE SQ SCH (11:42)
[2020-05-12 12:15] LABS: Glucose,Whole Blood 278 mg/dL (75-99)
--- NOTE | 2020-05-12 12:58 | P.PN ---
Subjective Progress Note Date: 05/12/20 Principal diagnosis: Sepsis secondary to underlying UTI This is a 64-year-old male patient with a recent diagnosis of small cell lung cancer who is currently on a combination of chemotherapy including carboplatin and NOC TECHNICIAN-16. Diagnosis established on 04/11/2020 and the patient underwent a navigational bronchoscopy of the left upper lobe mass that confirmed the diagnosis. PET scan revealed suspicious uptake in the right supra hilar area and the patient has a right suprahilar mass, right hilar mass, pretracheal lymph nodes, left adrenal gland showed a mass with increased uptake in addition to uptake within the right adrenal gland. 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 The patient came in yesterday to the hospital with further weakness, generalized body weakness post systemic chemotherapy and received his first cycle of systemic chemotherapy around 5 days ago. He had an outpatient urinalysis and urine culture that was done on 05/07/2020 and was positive for Klebsiella pneumoniae. His blood cultures also showing gram-negative bacillus. The patient had a white cell count of 0.8 at time of admission and this morning his white cell count is at 2.1 with an absolute neutrophil count of 1.4K. The patient was started on IV cefepime. Earlier this morning he was having some worsening shortness of breath. He was felt to be in fluid overload and he was given a dose of Lasix 40 mg and following that he producing adequate amount of urine output. He has increased lower extremity edema and Doppler of the lower extremity be obtained. CAT scan of the chest that was repeated in the emergency department was consistent with small cell lung cancer, metastatic. The patient is seen today 05/12/2020 in follow-up on the selective care unit. He is currently sitting up in bed. Awake and alert in no acute distress. Maintaining O2 saturations in the 90s on 2 L/m per nasal cannula. She's afebrile. He's been somewhat hypotensive. Blood pressure 88/56 this morning. He did receive Coreg. White count 4.7. Hemoglobin 8.6. Platelet count 44,000. Blast cells 2. Glipizide 0.19. Sodium 136. Potassium 3.4. Bicarb 20. Creatinine 0.87. Urine culture positive for gram-negative bacilli, sputum culture positive for pseudomonas species. Final results pending. Dopplers positive for right lower extremity DVT. He is currently on Zosyn. Continued on IV diuretics, Arixtra, Zarxio. 0.9 normal saline at 100 ML's per hour. Objective - Vital Signs Vital signs: Vital Signs Temp 98 F 05/12/20 08:20 Pulse 84 05/12/20 08:20 Resp 18 05/12/20 08:20 BP 103/59 05/12/20 09:28 Pulse Ox 97 05/12/20 08:20 Intake & Output 05/11/20 05/12/20 05/12/20 18:59 06:59 18:59 Intake Total 1080 260 516 Output Total 1500 815 Balance -420 -555 516 Weight 89.5 kg Intake: IV 360 160 0.9 10 160 Cefepime 2 gm In Sodium 100 Chloride 0.9% 100 ml @ 200 mls/hr IVPB ONCE ONE Rx#:[id number] Vancomycin 1,250 mg In 250 Sodium Chloride 0.9% 250 ml @ 125 mls/hr IVPB Q8H [facility] Rx#:[id number] Intake, IV Titration 100 Amount Piperacillin-Tazobactam 3 100 .375 gm In Sodium Chloride 0.9% 100 ml @ 25 mls/hr IVPB Q8H [facility] Rx#: [id number] Oral 720 240 Blood Product 0 276 Platelet Pheresis Pas 0 276 Psoralen Unit [id number] Platelet Pheresis Pas 0 Psoralen Unit [id number] Output: Urine 1500 815 Other: Voiding Method Indwelling Catheter Indwelling Catheter Indwelling Catheter # Bowel Movements 1 1 - Exam General: Very pleasant 64-year-old gentleman, currently on 2 L/m per nasal cannula, weak, pale Head: Normocephalic, atraumatic. Eyes: Symmetric. Pupils equal round. Ears: Symmetric. SHISHMAREF IRA Mouth: Dry Neck: Neck was supple and without jugular venous distension, thyromegaly, or carotid bruits. Carotids were easily palpable bilaterally. There was no adenopathy. Cardiac: Cardiac exam revealed the PMI to be normally situated and sized. The rhythm was regular and no extrasystoles were noted during several minutes of auscultation. The first and second heart sounds were normal and physiologic splitting of the second heart sound was noted. There were no murmurs, rubs, clicks, or gallops. Lungs: Lungs with crackles in the bilateral posterior bases Abdomen:Abdominal exam revealed normal bowel sounds. The abdomen was soft, non- tender, and without masses, organomegaly, or appreciable enlargement of the abdominal aorta. Extremities: Atrophy to muscular tone. The patient is +1 pitting edema lower extremities bilaterally. No cyanosis or clubbing. Neurological: Mental status: cooperative, pleasant. Cranial nerves: Symmetric facial Motor: does not elevate them or move legs. Mobility: Wheelchair at baseline - Labs CBC & Chem 7: 05/12/20 03:24 05/12/20 03:24 Labs: Abnormal Lab Results - Last 24 Hours (Table) 05/11/20 05/11/20 05/11/20 Range/Units 12:02 12:02 17:10 RBC (4.30-5.90) m/uL Hgb (13.0-17.5) gm/dL Hct (39.0-53.0) % MCV (80.0-100.0) fL Plt Count (150-450) k/uL Blast Cells % % Lymphocytes # (Manual) (1.0-4.8) k/uL Metamyelocytes # (Man) (0) k/uL Myelocytes # (Manual) (0) k/uL Blast Cells # (Man) (0) k/uL Fibrinogen 717 H (200-500) mg/dL Sodium (137-145) mmol/L Potassium (3.5-5.1) mmol/L Chloride (98-107) mmol/L Carbon Dioxide (22-30) mmol/L BUN (9-20) mg/dL Glucose (74-99) mg/dL POC Glucose (mg/dL) 199 H (75-99) mg/dL Calcium (8.4-10.2) mg/dL Iron 18 L (65-175) ug/dL TIBC 127 L (228-460) ug/dL % Saturation 14.17 L (15.00-50.00) Ferritin 3935.2 H (22.0-322.0) ng/mL Vitamin B12 2765.0 H (200.0-944.0) pg/mL 05/11/20 05/11/20 05/12/20 Range/Units 20:00 20:26 03:24 RBC 2.59 L (4.30-5.90) m/uL Hgb 8.5 L (13.0-17.5) gm/dL Hct 26.2 L (39.0-53.0) % MCV 101.3 H (80.0-100.0) fL Plt Count 45 L (150-450) k/uL Blast Cells % % Lymphocytes # (Manual) (1.0-4.8) k/uL Metamyelocytes # (Man) (0) k/uL Myelocytes # (Manual) (0) k/uL Blast Cells # (Man) (0) k/uL Fibrinogen (200-500) mg/dL Sodium 136 L (137-145) mmol/L Potassium 3.4 L (3.5-5.1) mmol/L Chloride 110 H (98-107) mmol/L Carbon Dioxide 20 L (22-30) mmol/L BUN 27 H (9-20) mg/dL Glucose 191 H (74-99) mg/dL POC Glucose (mg/dL) 275 H (75-99) mg/dL Calcium 7.3 L (8.4-10.2) mg/dL Iron (65-175) ug/dL TIBC (228-460) ug/dL % Saturation (15.00-50.00) Ferritin (22.0-322.0) ng/mL Vitamin B12 (200.0-944.0) pg/mL 05/12/20 05/12/20 05/12/20 Range/Units 03:24 06:09 12:10 RBC 2.61 L (4.30-5.90) m/uL Hgb 8.6 L (13.0-17.5) gm/dL Hct 26.4 L (39.0-53.0) % MCV 101.1 H (80.0-100.0) fL Plt Count 44 L (150-450) k/uL Blast Cells % 2 H* % Lymphocytes # (Manual) 0.19 L (1.0-4.8) k/uL Metamyelocytes # (Man) 0.14 H (0) k/uL Myelocytes # (Manual) 0.09 H (0) k/uL Blast Cells # (Man) 0.09 H (0) k/uL Fibrinogen (200-500) mg/dL Sodium (137-145) mmol/L Potassium (3.5-5.1) mmol/L Chloride (98-107) mmol/L Carbon Dioxide (22-30) mmol/L BUN (9-20) mg/dL Glucose (74-99) mg/dL POC Glucose (mg/dL) 202 H 278 H (75-99) mg/dL Calcium (8.4-10.2) mg/dL Iron (65-175) ug/dL TIBC (228-460) ug/dL % Saturation (15.00-50.00) Ferritin (22.0-322.0) ng/mL Vitamin B12 (200.0-944.0) pg/mL Microbiology - Last 24 Hours (Table) 05/10/20 13:51 Urine Culture - Preliminary Urine,Voided Gram Neg Bacilli 05/10/20 16:20 Blood Culture Gram Stain - Preliminary Blood Blood Culture - Preliminary Pseudomonas spec 05/10/20 16:20 Blood Culture - Final Blood Assessment and Plan Assessment: 1 septic shock likely secondary to underlying Klebsiella pneumonia UTI and gram- negative bacillus in the blood awaiting final cultures. 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 Scott Plan is for IVC filter placement today Initiated on Arixtra On Zarxio On Zosyn Received platelets yesterday and again today Continue hydration We will give additional liter of fluid for hypotension Discontinue Coreg We will continue to follow and make further recommendations based on his clinical status I, the cosigning physician, performed a history & physical examination of the patient. Lungs sounds crackles in the bilateral posterior bases Maintaining good O2 saturations in the 90s on 2 L/m per nasal cannula. I discussed the assessment and plan of care with my nurse practitioner, Mikayla Suggs. I attest to the above note as dictated by her.
--- NOTE | 2020-05-12 14:23 | P.CRDCN ---
History of Present Illness Consult date: 05/12/20 Consult reason: shortness of breath History of present illness: The patient is a 64-year-old male with an extensive past medical history including small cell lung carcinoma, who presented to the hospital with increased shortness of breath. He was found to be in acute hypoxic respiratory failure secondary to septicemia. Blood cultures show pseudomonas and urine cultures show Klebsiella. He is currently undergoing chemotherapy. On interview this morning, he has resting comfortably in bed he has slightly labored, however he states his breathing has significantly improved. He does feel overall weak and malaise. He denies any chest pain, chest pressure, heart racing or fluttering, or dizzy while lying in bed. The patient was initially on 100 mL per hour fluids, however according to nursing staff he developed flash pulmonary edema overnight. IV fluids were then KVO. His blood pressure subsequently dropped and was in the high 80s systolic at the time of my examination. DIAGNOSTICS: EKG shows sinus tachycardia with incomplete right bundle-branch block Chest x-ray shows small right pleural effusion with left basilar subsegmental atelectasis Chest CT shows a right tracheobronchial angle mass measuring 6 x 5.5 cm. possible sub-Esther mass versus cavitary pneumonia noted. Trace pleural effusions. WBC 4.7, hemoglobin 8.6, hematocrit 26.4, platelet 44, sodium 136, potassium 3.4, BUN 27, creatinine 0.87, magnesium 1.7, BNP 2765 PAST MEDICAL HISTORY: Lung cancer, diabetes mellitus, hyperlipidemia, hypertension, osteoarthritis, Eaton-Lambert syndrome, BPH, JAIME REVIEW OF SYSTEMS: No fever or chills. Positive cough No diaphoresis. Patient denies headache, dizziness, blurred vision, double vision. Patient denies any stomach discomfort. No nausea, vomiting. No hematochezia. No hematemesis. Denies any black stools or blood in his stools. Denies dysuria or hematuria. No muscle weakness or numbness. Positive shortness of breath. No chest pain or chest pressure. PHYSICAL EXAMINATION: This is a 64-year-old male in mild respiratory distress at the time of my examination. HEENT: Head is atraumatic, normocephalic. Pupils are equal, round. Sclerae anicteric. Conjunctivae are clear. Mucous membranes of the mouth are moist. Neck is supple. There is no jugular venous distention. No carotid bruit is heard. CHEST EXAMINATION: Diminished lung sounds bilaterally. No chest wall tenderness is noted on palpation or with deep breathing. Mildly labored. HEART EXAMINATION: Heart regular rate and rhythm. Diminished heart sounds, No murmurs, gallops or rub. ABDOMEN: Soft, nontender. Bowel sounds are heard. No organomegaly noted. EXTREMITIES: 3+ peripheral edema and no calf tenderness noted. NEUROLOGIC EXAMINATION: Patient is awake, alert and oriented x3. FINAL ASSESSMENT AND PLAN: #1 septic shock, secondary to Pseudomonas and Klebsiella infection #2 shortness of breath, secondary to small cell lung cancer and pneumonia #3 hypertension #4 hyperlipidemia #5 pancytopenia, secondary to chemotherapy #6 obstructive sleep apnea, uses CPAP at home #7 hypokalemia #8 anemia #9 elevated BNP PLAN: We will order an echocardiogram to assess LV function and rule out pericardial fluid due to diminished heart sounds. Continue Aldactone at this time for hypokalemia. Temporarily hold furosemide due to hypotension. Defer septicemia management to pulmonary and attending group. Past Medical History Past Medical History: Cancer, Diabetes Mellitus, Hearing Disorder / Deafness, Hyperlipidemia, Hypertension, Osteoarthritis (OA) Additional Past Medical History / Comment(s): Enlarged prostate. I have a disease, not sure of the name but causes numbness, tingling and weakness in legs and arms, use a wheelcahir. No CPAP use. Tinnitus. Lung CA 04/2020 History of Any Multi-Drug Resistant Organisms: None Reported Past Surgical History: No Surgical Hx Reported Additional Past Surgical History / Comment(s): "Had some muscle taken out of left thigh area for testing". Lung biopsy Past Anesthesia/Blood Transfusion Reactions: No Reported Reaction Past Psychological History: No Psychological Hx Reported Smoking Status: Never smoker Past Alcohol Use History: None Reported Past Drug Use History: None Reported - Past Family History Mother Family Medical History: No Reported History Medications and Allergies Home Medications Medication Instructions Recorded Confirmed Type Tamsulosin HCl [Flomax] 0.4 mg PO HS 01/26/20 05/10/20 History Insulin Glargine [Lantus] 20 unit SQ HS 04/10/20 05/10/20 History Sennosides [Senna] 8.6 mg PO AC-BID 04/10/20 05/10/20 History Losartan Potassium 100 mg PO DAILY 04/25/20 05/10/20 History amLODIPine [Norvasc] 5 mg PO DAILY 04/25/20 05/10/20 History carvediloL [Coreg*] 12.5 mg PO AC-BID 04/25/20 05/10/20 History Spironolactone [Aldactone] 50 mg PO BID #120 tab 04/28/20 05/10/20 Rx Fluconazole [Diflucan] See Taper PO DIRECTED 05/10/20 05/10/20 History Mouth Compound Mix 5 ml PO QID 05/10/20 05/10/20 History Potassium Chloride ER [K-Dur ] 40 meq PO BID 05/10/20 05/10/20 History polyethylene glycoL 3350 [Miralax] 17 gm PO DAILY PRN 05/10/20 05/10/20 History Allergies Allergy/AdvReac Type Severity Reaction Status Date / Time Penicillins Allergy Rash/Hives Verified 05/10/20 14:42 Physical Exam Vitals: Vital Signs Temp Pulse Pulse Resp BP BP BP 05/12/20 13:09 98 F 78 18 115/68 05/12/20 12:39 97.9 F 80 19 118/74 05/12/20 12:29 98 F 84 18 120/72 05/12/20 12:00 98 F 83 18 121/75 05/12/20 10:07 98 F 81 18 121/75 05/12/20 09:28 103/59 05/12/20 08:20 98 F 84 18 88/56 05/12/20 04:00 97.8 F 79 18 107/65 05/12/20 00:00 98.0 F 86 18 123/65 05/11/20 20:00 98.3 F 86 18 103/66 05/11/20 19:39 98.3 F 92 17 107/60 05/11/20 18:23 98.5 F 110 H 20 135/79 05/11/20 17:53 98.5 F 102 H 18 126/72 05/11/20 17:43 98.3 F 18 127/74 05/11/20 16:35 18 05/11/20 16:32 98.5 F 98 18 103/56 Pulse Ox 05/12/20 13:09 05/12/20 12:39 05/12/20 12:29 05/12/20 12:00 97 05/12/20 10:07 05/12/20 09:28 05/12/20 08:20 97 05/12/20 04:00 95 05/12/20 00:00 96 05/11/20 20:00 96 05/11/20 19:39 94 L 05/11/20 18:23 95 05/11/20 17:53 05/11/20 17:43 94 L 05/11/20 16:35 05/11/20 16:32 94 L Intake and Output 05/11/20 05/12/20 05/12/20 22:59 06:59 14:59 Intake Total 240 260 516 Output Total 1000 815 Balance -760 -555 516 Intake: IV 160 0.9 160 Intake, IV Titration 100 Amount Piperacillin-Tazobactam 3 100 .375 gm In Sodium Chloride 0.9% 100 ml @ 25 mls/hr IVPB Q8H [facility] Rx#: [id number] Oral 240 240 Blood Product 0 276 Platelet Pheresis Pas 0 276 Psoralen Unit [id number] Platelet Pheresis Pas 0 Psoralen Unit [id number] Output: Urine 1000 815 Other: Voiding Method Indwelling Catheter Indwelling Catheter Indwelling Catheter # Bowel Movements 1 Weight 89.5 kg Results 05/12/20 03:24 05/12/20 03:24 CBC 05/11/20 05/12/20 Range/Units 20:00 03:24 WBC 4.1 4.7 (3.8-10.6) k/uL RBC 2.59 L 2.61 L (4.30-5.90) m/uL Hgb 8.5 L 8.6 L (13.0-17.5) gm/dL Hct 26.2 L 26.4 L (39.0-53.0) % Plt Count 45 L 44 L (150-450) k/uL Comprehensive Metabolic Panel 05/12/20 Range/Units 03:24 Sodium 136 L (137-145) mmol/L Potassium 3.4 L (3.5-5.1) mmol/L Chloride 110 H (98-107) mmol/L Carbon Dioxide 20 L (22-30) mmol/L BUN 27 H (9-20) mg/dL Creatinine 0.87 (0.66-1.25) mg/dL Glucose 191 H (74-99) mg/dL Calcium 7.3 L (8.4-10.2) mg/dL Current Medications Generic Name Dose Route Start Last Admin Trade Name Freq PRN Reason Stop Dose Admin Hydrocodone Bitart/Acetaminophen 1 each 05/10/20 20:24 Hydrocodone/Apap 5-325mg 1 Each Tab PO Q4HR PRN Pain Filgrastim-Sndz 300 mcg 05/11/20 12:00 05/12/20 11:42 Filgrastim-Sndz 300 Mcg/0.5 Ml Syringe SQ 300 mcg DAILY@1200 [facility] Administration Fondaparinux 7.5 mg 05/11/20 22:30 05/11/20 23:19 Fondaparinux 2.5 Mg/0.5 Ml Syringe SQ 7.5 mg DAILY@2100 [facility] Administration Furosemide 40 mg 05/11/20 09:45 05/12/20 11:38 Furosemide 10 Mg/Ml 4 Ml Vial IV 40 mg Q12HR [facility] Administration Sodium Chloride 1,000 mls @ 100 mls/hr 05/10/20 16:15 05/12/20 11:34 Saline 0.9% IV 100 mls/hr .Q10H [facility] Administration Piperacillin Sod/Tazobactam 100 mls @ 25 mls/hr 05/12/20 04:00 05/12/20 11:42 Sod 3.375 gm/ Sodium Chloride IVPB 25 mls/hr Q8H [facility] Administration Insulin Aspart 0 unit 05/10/20 21:00 05/12/20 13:17 Insulin Aspart (Novolog) 100 Unit/Ml Vial SQ 4 unit ACHS [facility] Administration Protocol Naloxone HCl 0.2 mg 05/10/20 16:10 Naloxone 0.4 Mg/Ml 1 Ml Vial IV Q2M PRN Opioid Reversal Polyethylene Glycol 17 gm 05/10/20 20:22 Polyethylene Glycol 3350 17 Gm Powd.Pack PO DAILY PRN Constipation Potassium Chloride 40 meq 05/10/20 21:00 05/12/20 09:12 Potassium Chloride Er 20 Meq Tab.Er PO 40 meq BID [facility] Administration Spironolactone 50 mg 05/10/20 21:00 05/12/20 09:15 Spironolactone 25 Mg Tab PO 50 mg BID [facility] Administration Tamsulosin HCl 0.4 mg 05/10/20 21:00 05/11/20 20:08 Tamsulosin 0.4 Mg Cap.Er.24h PO 0.4 mg HS [facility] Administration Intake and Output 05/11/20 05/12/20 05/12/20 22:59 06:59 14:59 Intake Total 240 260 516 Output Total 1000 815 Balance -760 -522 516 Intake: IV 160 0.9 160 Intake, IV Titration 100 Amount Piperacillin-Tazobactam 3 100 .375 gm In Sodium Chloride 0.9% 100 ml @ 25 mls/hr IVPB Q8H [facility] Rx#: [id number] Oral 240 240 Blood Product 0 276 Platelet Pheresis Pas 0 276 Psoralen Unit [id number] Platelet Pheresis Pas 0 Psoralen Unit [id number] Output: Urine 1000 815 Other: Voiding Method Indwelling Catheter Indwelling Catheter Indwelling Catheter # Bowel Movements 1 Weight 89.5 kg 05/12/20 03:24 05/12/20 03:24
[2020-05-12] MEDS ORDERED: DEXTROSE 5% IN WATER 250 ML with AMIODARONE 300 MG IV ONE (14:59)
[2020-05-12 17:16] LABS: Glucose,Whole Blood 290 mg/dL (75-99)
--- NOTE | 2020-05-12 17:37 | PN ---
PROGRESS NOTE DATE OF SERVICE: May 12, 2020. CHIEF COMPLAINT: Weak and short of breath. Eitan is seen today as a followup. He remains very weak. He is short of breath. He complains also of some sores in his mouth. No nausea or vomiting. No melena or hematochezia, hematuria or hemoptysis. CURRENT MEDICATION: Includes [place] 5/25 every 4 hours as needed, amiodarone IV drip, 300 mcg subcu daily, Arixtra 7.5 mg daily, Lasix 40 mg IV every 8-12 hours, Zosyn 3.375 g IV piggyback every 8 hours. MiraLAX as needed for constipation. K-Dur 40 mEq b.i.d. sodium chloride at 100 mL/h. Aldactone 50 mg b.i.d., Flomax 0.5 mg a day. PHYSICAL EXAMINATION: He is alert and oriented x3. He appears short of breath and very tired. His vital signs are temperature 98.0. He has been afebrile. Pulse 78 and regular, respiration 18, blood pressure 115/68. HEENT: Normocephalic, atraumatic. Oral mucosa revealed evidence of thrush and mucositis on his tongue. NECK: Supple. CHEST equal expansion bilaterally. LUNGS reveal bilateral crackles and decreased breath sounds in lung bases. HEART is tachy and regular. ABDOMEN: Soft. No tenderness. EXTREMITIES revealed 3+ edema. SKIN: Multiple bruises noted on his upper and lower extremities. LABORATORY DATA: From today, WBC are 4.7, hemoglobin 8.6, hematocrit 26.4, platelets are 44. Sodium 137, potassium 4.3, chloride 110, CO2 is 22, BUN is 27, creatinine 0.8. IMPRESSION: 1. Small cell lung carcinoma, recently diagnosed. The patient was started on systemic treatment with carboplatin and etoposide on 04/30/2020. He has 1 cycle of systemic treatment so far. 2. Pancytopenia secondary to recent chemotherapy. His white cells and neutrophils has recovered. 3. Oral mucositis secondary to recent chemotherapy. 4. Deep venous thrombosis with hypercoagulable state secondary to underlying malignancy. 5. 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 6. Septic shock with Klebsiella pneumoniae urinary tract infection and gram negative bacilli in the blood. RECOMMENDATION: 1. Continue broad-spectrum antibiotic. He is on Zosyn. 2. In regard to his DVT, he is currently on Arixtra. Will continue with that or low- molecular weight heparin since there is a less likelihood of heparin-induced thrombocytopenia with it. 3. Monitor blood count very closely. 4. Add oral nystatin swish and swallow. 5. Discontinue granulocyte colony-stimulating factor. 6. Overall prognosis is very guarded. I did discuss that in details with the patient and his at bedside. Thank you very much. MMODL / IJN: [id number] /
[2020-05-12] MEDS: NYSTATIN 100,000 UNIT/ML SUSP 500,000 UNIT/5 ML CUP PO SCH ×2 (17:40→21:03)
[2020-05-12] MEDS: MAGNESIUM SULFATE-D5W PMX 1 GM in DEXTROSE/WATER 1 100ML.BAG IVPB SCH ×2 (17:53→18:55)
[2020-05-12] MEDS: MAG HYDROX/AL HYDROX/SIMETH 30 ML, LIDOCAINE VISCOUS 30 ML, diphenhydrAMINE ELIXIR 75 M... PO SCH ×8 (18:31→21:07)
[2020-05-12] MEDS: TAMSULOSIN 0.4 MG CAP.ER.24H PO SCH (21:03)
[2020-05-12] MEDS: FONDAPARINUX 2.5 MG/0.5 ML SYRINGE SQ SCH (21:04)
[2020-05-12 21:05] LABS: Glucose,Whole Blood 343 mg/dL (75-99)
[2020-05-12] MEDS ORDERED: AMIODARONE 360 MG in DEXTROSE 5% IN WATER 200 ML IV ONE ×2 (21:45)
[2020-05-12] MEDS: METOPROLOL TARTRATE 50 MG TAB PO SCH (21:57)
[2020-05-13] MEDS: AMIODARONE 300 MG in DEXTROSE 5% IN WATER 250 ML IV SCH ×4 (03:23→12:59)
[2020-05-13] MEDS: PIPERACILLIN-TAZOBACTAM 3.375 GM in SODIUM CHLORIDE 0.9% 100 ML IVPB SCH ×3 (03:26→21:27)
[2020-05-13 06:08] LABS: Glucose,Whole Blood 220 mg/dL (75-99)
[2020-05-13] MEDS: INSULIN ASPART (NovoLOG) 100 UNIT/ML VIAL SQ SCH ×4 (06:28→21:26)
[2020-05-13 08:07] LABS: Calcium 7.2 mg/dL (8.4-10.2); Potassium 3.1 mmol/L (3.5-5.1)
[2020-05-13] MEDS: SPIRONOLACTONE 25 MG TAB PO SCH ×2 (08:21→21:24)
[2020-05-13] MEDS: POTASSIUM CHLORIDE ER 20 MEQ TAB.ER PO SCH ×4 (08:21→21:25)
[2020-05-13] MEDS: METOPROLOL TARTRATE 50 MG TAB PO SCH ×2 (08:21→21:28)
[2020-05-13] MEDS: NYSTATIN 100,000 UNIT/ML SUSP 500,000 UNIT/5 ML CUP PO SCH ×4 (08:21→21:29)
[2020-05-13] MEDS: SODIUM CHLORIDE 0.9% 1,000 ML IV SCH ×2 (08:25→17:29)
[2020-05-13 08:53] LABS: HGB 9.1 gm/dL (13.0-17.5); MCHC 31.3 g/dL (31.0-37.0); MCV 102.2 fL (80.0-100.0); Macrocytosis Slight; Mean Platelet Volume 12.5; RBC 2.84 m/uL (4.30-5.90); RDW 14.2 % (11.5-15.5); WBC 15.3 k/uL (3.8-10.6)
[2020-05-13] MEDS: FUROSEMIDE 10 MG/ML 4 ML VIAL IV SCH (10:15)
[2020-05-13] MEDS: MAG HYDROX/AL HYDROX/SIMETH 30 ML, LIDOCAINE VISCOUS 30 ML, diphenhydrAMINE ELIXIR 75 M... PO SCH ×12 (10:16→23:29)
[2020-05-13 11:09] LABS: Band Neutrophils % 8 %; Lymphocytes # (M) 1.22 k/uL (1.0-4.8); Metamyelocytes # (M) 0.46 k/uL (0); Metamyelocytes % 3 %; Monocytes # (M) 0.46 k/uL (0-1.0); Myelocytes # (M) 0.77 k/uL (0); Myelocytes % 5 %; Neutrophils % (M) 75 %; Nucleated Red Blood Cells 0 /100 WBC (0-0); Total Cells Counted 200
[2020-05-13 11:14] LABS: Large Platelets Present
[2020-05-13 11:15] LABS: Platelet Count 69 k/uL (150-450)
--- NOTE | 2020-05-13 11:15 | P.PN ---
Subjective Progress Note Date: 05/13/20 The patient was interviewed and examined resting in bed. He feels as though his shortness of breath has been stable. He denies any chest pain or chest pressure. He states he cannot feel his heart race or flutter. GENERAL: Ill-appearing, frail. NECK: Supple without JVD or thyromegaly. LUNGS: Breath sounds diminished auscultation bilaterally. Respirations mildly labored.. No wheezes, rales or rhonchi. HEART: Irregular rate and rhythm without murmurs, rubs or gallops. S1 and S2 heard. EXTREMITIES: Limited range of motion. +3 bilateral pitting edema. No clubbing or cyanosis. Peripheral pulses intact and strong. VITALS: Blood pressure 93/69, 96% on 5 L nasal cannula, respiratory rate 19, temperature 97.4F TELEMETRY: Persistent atrial fibrillation with RVR. Average resting rates in the 120s to 140s LABS: WBC 15.3, hemoglobin 9.1, hematocrit 29.0, sodium 137, potassium 3.1, BUN 33, creatinine 1.08, magnesium 2.0, TSH less than 0.015 IMPRESSION: #1 septic shock, secondary to Pseudomonas and Klebsiella infection #2 shortness of breath, secondary to small cell lung cancer and pneumonia #3 hypertension #4 hyperlipidemia #5 elevated BNP #6 obstructive sleep apnea, uses CPAP at home #7 hypokalemia #8 anemia #9 paroxysmal atrial fibrillation with RVR, on amiodarone drip #10 acute DVT in right lower extremity, on Arixtra #11 abnormal TSH, free T4 pending PLAN: Continue amiodarone drip and oral metoprolol. Thyroid management per primary care team. Continue electrolyte supplementation. Prognosis is guarded. Objective - Vital Signs Vital signs: Vital Signs Temp 97.4 F L 05/13/20 08:10 Pulse 148 H 05/13/20 08:10 Resp 19 05/13/20 08:10 BP 93/69 05/13/20 08:10 Pulse Ox 96 05/13/20 08:10 Intake & Output 05/12/20 05/13/20 05/13/20 19:59 06:59 18:59 Intake Total 100 Output Total Balance 100 Weight Intake: Intake, IV Titration Amount Magnesium Sulfate-D5w Pmx 1 gm In Dextrose/Water 1 100ml.bag @ 100 mls/hr IVPB Q1H [facility] Rx#: [id number] Piperacillin-Tazobactam 3 .375 gm In Sodium Chloride 0.9% 100 ml @ 25 mls/hr IVPB Q8H [facility] Rx#: [id number] Oral 100 Blood Product Platelet Pheresis Pas Psoralen Unit [id number] Platelet Pheresis Pas Psoralen Unit [id number] Output: Urine Uretheral (Todd) Stool Other: Voiding Method # Bowel Movements - Labs CBC & Chem 7: 05/13/20 06:39 05/13/20 06:39 Labs: Abnormal Lab Results - Last 24 Hours (Table) 05/12/20 05/12/20 05/12/20 Range/Units 12:10 17:11 21:03 WBC (3.8-10.6) k/uL RBC (4.30-5.90) m/uL Hgb (13.0-17.5) gm/dL Hct (39.0-53.0) % MCV (80.0-100.0) fL Potassium (3.5-5.1) mmol/L Chloride (98-107) mmol/L Carbon Dioxide (22-30) mmol/L BUN (9-20) mg/dL Glucose (74-99) mg/dL POC Glucose (mg/dL) 278 H 290 H 343 H (75-99) mg/dL Calcium (8.4-10.2) mg/dL TSH (0.465-4.680) mIU/L 05/13/20 05/13/20 05/13/20 Range/Units 06:04 06:39 06:39 WBC 15.3 H (3.8-10.6) k/uL RBC 2.84 L (4.30-5.90) m/uL Hgb 9.1 L (13.0-17.5) gm/dL Hct 29.0 L (39.0-53.0) % MCV 102.2 H (80.0-100.0) fL Potassium 3.1 L (3.5-5.1) mmol/L Chloride 110 H (98-107) mmol/L Carbon Dioxide 19 L (22-30) mmol/L BUN 33 H (9-20) mg/dL Glucose 216 H (74-99) mg/dL POC Glucose (mg/dL) 220 H (75-99) mg/dL Calcium 7.2 L (8.4-10.2) mg/dL TSH (0.465-4.680) mIU/L 05/13/20 Range/Units 06:39 WBC (3.8-10.6) k/uL RBC (4.30-5.90) m/uL Hgb (13.0-17.5) gm/dL Hct (39.0-53.0) % MCV (80.0-100.0) fL Potassium (3.5-5.1) mmol/L Chloride (98-107) mmol/L Carbon Dioxide (22-30) mmol/L BUN (9-20) mg/dL Glucose (74-99) mg/dL POC Glucose (mg/dL) (75-99) mg/dL Calcium (8.4-10.2) mg/dL TSH <0.015 L (0.465-4.680) mIU/L Microbiology - Last 24 Hours (Table) 05/10/20 13:51 Urine Culture - Final Urine,Voided Klebsiella pneumoniae 05/10/20 16:20 Blood Culture Gram Stain - Final Blood Blood Culture - Final Pseudomonas aeruginosa 05/11/20 12:02 Blood Culture - Preliminary Blood No Growth after 24 hours
[2020-05-13 11:19] LABS: T4, Free (Free Thyroxine) 1.77 ng/dL (0.78-2.19)
[2020-05-13] MEDS ORDERED: Potassium Replacement Protocol 1 EACH MISC MISCELLANE PRN (11:28)
[2020-05-13 12:13] LABS: Glucose,Whole Blood 336 mg/dL (75-99)
--- NOTE | 2020-05-13 12:35 | P.PN ---
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 Diagnosis established on 04/11/2020 and the patient underwent a navigational bronchoscopy of the left upper lobe mass that confirmed the diagnosis. PET scan revealed suspicious uptake in the right supra hilar area and the patient has a right suprahilar mass, right hilar mass, pretracheal lymph nodes, left adrenal gland showed a mass with increased uptake in addition to uptake within the right adrenal gland. The patient was also diagnosed having generalized muscle weakness and based on further investigation was done 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 The patient came in yesterday to the hospital with further weakness, generalized body weakness post systemic chemotherapy and received his first cycle of systemic chemotherapy around 5 days ago. He had an outpatient urinalysis and urine culture that was done on 05/07/2020 and was positive for Klebsiella pneumoniae. His blood cultures also showing gram-negative bacillus. The patient had a white cell count of 0.8 at time of admission and this morning his white cell count is at 2.1 with an absolute neutrophil count of 1.4K. The patient was started on IV cefepime. Earlier this morning he was having some worsening shortness of breath. He was felt to be in fluid overload and he was given a dose of Lasix 40 mg and following that he producing adequate amount of urine output. He has increased lower extremity edema and Doppler of the lower extremity be obtained. CAT scan of the chest that was repeated in the emergency department was consistent with small cell lung cancer, metastatic. The patient is seen today 05/12/2020 in follow-up on the selective care unit. He is currently sitting up in bed. Awake and alert in no acute distress. Maintaining O2 saturations in the 90s on 2 L/m per nasal cannula. She's afebrile. He's been somewhat hypotensive. Blood pressure 88/56 this morning. He did receive Coreg. White count 4.7. Hemoglobin 8.6. Platelet count 44,000. Blast cells 2. Glipizide 0.19. Sodium 136. Potassium 3.4. Bicarb 20. Creatinine 0.87. Urine culture positive for gram-negative bacilli, sputum culture positive for pseudomonas species. Final results pending. Dopplers positive for right lower extremity DVT. He is currently on Zosyn. Continued on IV diuretics, Arixtra, Zarxio. 0.9 normal saline at 100 ML's per hour. Patient is seen today in 05/13/2020 in follow-up on the selective care unit. He is currently resting comfortably in bed. A bit more weak and fatigued today compared to yesterday. He did have ongoing issues with atrial fibrillation with rapid ventricular response. He is on amiodarone at 0.5 mg per minute. Anticoag ulated with Arixtra. 0.9 normal saline at 100 MLS per hour. He is on 4 L/m per nasal cannula to maintain O2 saturations in the 90s. White count 15.3. Hemoglobin 9.1. Platelet count 69,000. Sodium 137. Potassium 3.1. Creatinine 1.08. TSH 0.015. Free T4 1 0.77. He is status post 2 units of platelets this admission thus far. He remains on Zosyn. Objective - Vital Signs Vital signs: Vital Signs Temp 97.4 F L 05/13/20 08:10 Pulse 148 H 05/13/20 08:10 Resp 19 05/13/20 08:10 BP 93/69 05/13/20 08:10 Pulse Ox 96 05/13/20 08:10 Intake & Output 05/12/20 05/13/20 05/13/20 19:59 06:59 18:59 Intake Total 100 Output Total Balance 100 Weight Intake: Intake, IV Titration Amount Magnesium Sulfate-D5w Pmx 1 gm In Dextrose/Water 1 100ml.bag @ 100 mls/hr IVPB Q1H [facility] Rx#: [id number] Piperacillin-Tazobactam 3 .375 gm In Sodium Chloride 0.9% 100 ml @ 25 mls/hr IVPB Q8H [facility] Rx#: [id number] Oral 100 Blood Product Platelet Pheresis Pas Psoralen Unit [id number] Platelet Pheresis Pas Psoralen Unit [id number] Output: Urine Uretheral (Todd) Stool Other: Voiding Method # Bowel Movements - Exam General: Very pleasant 64-year-old gentleman, weak, fatigued, currently on 5 L/m per nasal cannula Head: Normocephalic, atraumatic. Eyes: Symmetric. Pupils equal round. Ears: Symmetric. CHER-AE HEIGHTS Mouth: Dry Neck: Neck was supple and without jugular venous distension, thyromegaly, or carotid bruits. Carotids were easily palpable bilaterally. There was no adenopathy. Cardiac: Cardiac exam revealed the PMI to be normally situated and sized. The rhythm was irregular and no extrasystoles were noted during several minutes of auscultation. The first and second heart sounds were normal and physiologic splitting of the second heart sound was noted. There were no murmurs, rubs, clicks, or gallops. Lungs: Lungs with crackles in the bilateral posterior bases Abdomen:Abdominal exam revealed normal bowel sounds. The abdomen was soft, non- tender, and without masses, organomegaly, or appreciable enlargement of the abdominal aorta. Extremities: Atrophy to muscular tone. The patient is +1 pitting edema lower extremities bilaterally. No cyanosis or clubbing. Neurological: Mental status: cooperative, pleasant. Cranial nerves: Symmetric facial Motor: does not elevate them or move legs. Mobility: Wheelchair at baseline - Labs CBC & Chem 7: 05/13/20 06:39 05/13/20 06:39 Labs: Abnormal Lab Results - Last 24 Hours (Table) 05/12/20 05/12/20 05/13/20 Range/Units 17:11 21:03 06:04 WBC (3.8-10.6) k/uL RBC (4.30-5.90) m/uL Hgb (13.0-17.5) gm/dL Hct (39.0-53.0) % MCV (80.0-100.0) fL Plt Count (150-450) k/uL Neutrophils # (Manual) (1.3-7.7) k/uL Metamyelocytes # (Man) (0) k/uL Myelocytes # (Manual) (0) k/uL Potassium (3.5-5.1) mmol/L Chloride (98-107) mmol/L Carbon Dioxide (22-30) mmol/L BUN (9-20) mg/dL Glucose (74-99) mg/dL POC Glucose (mg/dL) 290 H 343 H 220 H (75-99) mg/dL Calcium (8.4-10.2) mg/dL TSH (0.465-4.680) mIU/L 05/13/20 05/13/20 05/13/20 Range/Units 06:39 06:39 06:39 WBC 15.3 H (3.8-10.6) k/uL RBC 2.84 L (4.30-5.90) m/uL Hgb 9.1 L (13.0-17.5) gm/dL Hct 29.0 L (39.0-53.0) % MCV 102.2 H (80.0-100.0) fL Plt Count 69 L D (150-450) k/uL Neutrophils # (Manual) 12.60 H (1.3-7.7) k/uL Metamyelocytes # (Man) 0.46 H (0) k/uL Myelocytes # (Manual) 0.77 H (0) k/uL Potassium 3.1 L (3.5-5.1) mmol/L Chloride 110 H (98-107) mmol/L Carbon Dioxide 19 L (22-30) mmol/L BUN 33 H (9-20) mg/dL Glucose 216 H (74-99) mg/dL POC Glucose (mg/dL) (75-99) mg/dL Calcium 7.2 L (8.4-10.2) mg/dL TSH <0.015 L (0.465-4.680) mIU/L 05/13/20 Range/Units 12:05 WBC (3.8-10.6) k/uL RBC (4.30-5.90) m/uL Hgb (13.0-17.5) gm/dL Hct (39.0-53.0) % MCV (80.0-100.0) fL Plt Count (150-450) k/uL Neutrophils # (Manual) (1.3-7.7) k/uL Metamyelocytes # (Man) (0) k/uL Myelocytes # (Manual) (0) k/uL Potassium (3.5-5.1) mmol/L Chloride (98-107) mmol/L Carbon Dioxide (22-30) mmol/L BUN (9-20) mg/dL Glucose (74-99) mg/dL POC Glucose (mg/dL) 336 H (75-99) mg/dL Calcium (8.4-10.2) mg/dL TSH (0.465-4.680) mIU/L Microbiology - Last 24 Hours (Table) 05/10/20 13:51 Urine Culture - Final Urine,Voided Klebsiella pneumoniae 05/10/20 16:20 Blood Culture Gram Stain - Final Blood Blood Culture - Final Pseudomonas aeruginosa 05/11/20 12:02 Blood Culture - Preliminary Blood No Growth after 24 hours Assessment and Plan Assessment: 1 septic shock likely secondary to underlying Klebsiella pneumonia UTI and pseudomonas aeruginosa in the blood awaiting final cultures. 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 Tyler thornton with RVR, currently on amiodarone at 0.5 mg/m Plan is for IVC filter placement possibly tomorrow Continued on Arixtra On Zosyn Received platelets 2 Prognosis remains guarded Titrate down the FiO2 as tolerated Chest x-ray in the a.m. We will continue to follow and make further recommendations based on his clinical status I, the cosigning physician, performed a history & physical examination of the patient. Lungs sounds crackles in the bilateral posterior bases Maintaining good O2 saturations in the 90s on 5 L/m per nasal cannula. I discussed the assessment and plan of care with my nurse practitioner, Mikayla Suggs. I attest to the above note as dictated by her.
[2020-05-13] MEDS ORDERED: POTASSIUM CHLORIDE ER 20 MEQ TAB.ER PO STA (14:29)
[2020-05-13 17:14] LABS: Glucose,Whole Blood 215 mg/dL (75-99)
[2020-05-13 20:50] LABS: Glucose,Whole Blood 167 mg/dL (75-99)
[2020-05-13] MEDS: TAMSULOSIN 0.4 MG CAP.ER.24H PO SCH (21:25)
[2020-05-13] MEDS: FONDAPARINUX 2.5 MG/0.5 ML SYRINGE SQ SCH (21:27)
--- NOTE | 2020-05-14 00:56 | P.PN ---
Subjective Progress Note Date: 05/12/20 Eitan Quezada is a 64 yo M with history of recently diagnosed small cell lung cancer with related lambert-eaton syndrome who presented to the hospital with worsening weakness, malaise and shortness of breath. He is approx 7 days s/p his first cycle of carboplatin and etoposide and feels his symptoms have worsened since that time. He has continued to experience severe weakness over the past few months. On presentation he was tachycardic and febrile, WBC 0.8k, Hgb 10.5, plt 36. CTA performed showed no PE and interval enlargement of his hilar mass to 6 cm. He was started on vancomycin and IV fluids, this morning pt complains of continued wet cough and shortness of breath. 05/12/2020 Patient is currently lying in the bed awake alert and appears to be in no mild distress. On oxygen at 2 L via nasal cannula. Patient has been afebrile. No fever no chills. Patient is hypotensive with blood pressure in upper 80s. Heart rate is elevated. Patient was started on amiodarone drip. Cardiology is following Urine culture showed Klebsiella pneumonia and blood culture showed Pseudomonas aeruginosa. Patient is being continued antibiotics no formal Zosyn. Pulmonary is on board. Laboratory data showed WBC 4.7, hemoglobin 8.6, platelets 44 Sodium 136, potassium 3.4, bicarb 20 and BUN 27 creatinine 0.87 Magnesium 1.7 Objective - Vital Signs Vital signs: Vital Signs Temp 98 F 05/12/20 13:09 Pulse 78 05/12/20 13:09 Resp 18 05/12/20 13:09 BP 115/68 05/12/20 13:09 Pulse Ox 97 05/12/20 12:00 Intake & Output 05/11/20 05/12/20 05/12/20 18:59 06:59 18:59 Intake Total 9310 372 2409 Output Total 0346 815 700 Balance -420 -555 375 Weight 89.5 kg Intake: IV 360 160 0.9 10 160 Cefepime 2 gm In Sodium 100 Chloride 0.9% 100 ml @ 200 mls/hr IVPB ONCE [facility] Rx#:[id number] Vancomycin 1,250 mg In 250 Sodium Chloride 0.9% 250 ml @ 125 mls/hr IVPB Q8H [facility] Rx#:[id number] Intake, IV Titration 100 Amount Piperacillin-Tazobactam 3 100 .375 gm In Sodium Chloride 0.9% 100 ml @ 25 mls/hr IVPB Q8H [facility] Rx#: [id number] Oral 720 440 Blood Product 0 635 Platelet Pheresis Pas 0 276 Psoralen Unit [id number] Platelet Pheresis Pas 359 Psoralen Unit [id number] Output: Urine 1500 815 700 Other: Voiding Method Indwelling Catheter Indwelling Catheter Indwelling Catheter # Bowel Movements 1 1 - Exam General: well nourished, well developed, NAD. Vitals reviewed Eyes: PERRL, EOMI, conjunctiva normal HENT: normocephalic, mucus membranes moist Neck: supple, no JVD Lungs: Increased respiratory effort, no wheezes. Rales at bases CV: Regular rate and rhythm, no murmur. Peripheral pulses 2+. Bilateral LE with 2+ edema Abdomen: soft, nondistended, no organomegaly Lymph: no cervical or axillary LAD Skin: warm and dry. Neuro: A&Ox3, normal mood and affect - Labs CBC & Chem 7: 05/13/20 06:39 05/13/20 06:39 Labs: Abnormal Lab Results - Last 24 Hours (Table) 05/11/20 05/11/20 05/11/20 Range/Units 12:02 17:10 20:00 RBC 2.59 L (4.30-5.90) m/uL Hgb 8.5 L (13.0-17.5) gm/dL Hct 26.2 L (39.0-53.0) % MCV 101.3 H (80.0-100.0) fL Plt Count 45 L (150-450) k/uL Blast Cells % % Lymphocytes # (Manual) (1.0-4.8) k/uL Metamyelocytes # (Man) (0) k/uL Myelocytes # (Manual) (0) k/uL Blast Cells # (Man) (0) k/uL Sodium (137-145) mmol/L Potassium (3.5-5.1) mmol/L Chloride (98-107) mmol/L Carbon Dioxide (22-30) mmol/L BUN (9-20) mg/dL Glucose (74-99) mg/dL POC Glucose (mg/dL) 199 H (75-99) mg/dL Calcium (8.4-10.2) mg/dL Iron 18 L (65-175) ug/dL TIBC 127 L (228-460) ug/dL % Saturation 14.17 L (15.00-50.00) Ferritin 3935.2 H (22.0-322.0) ng/mL Vitamin B12 2765.0 H (200.0-944.0) pg/mL 05/11/20 05/12/20 05/12/20 Range/Units 20:26 03:24 03:24 RBC 2.61 L (4.30-5.90) m/uL Hgb 8.6 L (13.0-17.5) gm/dL Hct 26.4 L (39.0-53.0) % MCV 101.1 H (80.0-100.0) fL Plt Count 44 L (150-450) k/uL Blast Cells % 2 H* % Lymphocytes # (Manual) 0.19 L (1.0-4.8) k/uL Metamyelocytes # (Man) 0.14 H (0) k/uL Myelocytes # (Manual) 0.09 H (0) k/uL Blast Cells # (Man) 0.09 H (0) k/uL Sodium 136 L (137-145) mmol/L Potassium 3.4 L (3.5-5.1) mmol/L Chloride 110 H (98-107) mmol/L Carbon Dioxide 20 L (22-30) mmol/L BUN 27 H (9-20) mg/dL Glucose 191 H (74-99) mg/dL POC Glucose (mg/dL) 275 H (75-99) mg/dL Calcium 7.3 L (8.4-10.2) mg/dL Iron (65-175) ug/dL TIBC (228-460) ug/dL % Saturation (15.00-50.00) Ferritin (22.0-322.0) ng/mL Vitamin B12 (200.0-944.0) pg/mL 05/12/20 05/12/20 Range/Units 06:09 12:10 RBC (4.30-5.90) m/uL Hgb (13.0-17.5) gm/dL Hct (39.0-53.0) % MCV (80.0-100.0) fL Plt Count (150-450) k/uL Blast Cells % % Lymphocytes # (Manual) (1.0-4.8) k/uL Metamyelocytes # (Man) (0) k/uL Myelocytes # (Manual) (0) k/uL Blast Cells # (Man) (0) k/uL Sodium (137-145) mmol/L Potassium (3.5-5.1) mmol/L Chloride (98-107) mmol/L Carbon Dioxide (22-30) mmol/L BUN (9-20) mg/dL Glucose (74-99) mg/dL POC Glucose (mg/dL) 202 H 278 H (75-99) mg/dL Calcium (8.4-10.2) mg/dL Iron (65-175) ug/dL TIBC (228-460) ug/dL % Saturation (15.00-50.00) Ferritin (22.0-322.0) ng/mL Vitamin B12 (200.0-944.0) pg/mL Microbiology - Last 24 Hours (Table) 05/11/20 12:02 Blood Culture - Preliminary Blood No Growth after 24 hours 05/10/20 13:51 Urine Culture - Preliminary Urine,Voided Gram Neg Bacilli 05/10/20 16:20 Blood Culture Gram Stain - Preliminary Blood Blood Culture - Preliminary Pseudomonas spec Assessment and Plan Assessment: 1. Septic shock due to Klebsiella pneumonia UTI and Pseudomonas bacteremia. 2. Chemotherapy induced neutropenia. RLE DVT in light of thrombocytopenia. Oncology consulted, appreciate recommendations 3. Pulmonary edema. Secondary to chemotherapy, start IV lasix 40 mg bid 4. Small cell lung cancer. Lambert eaton syndrome 5. CAD. Continue coreg 5. T2DM. Continue accucheck, sliding scale 6. Obstructive sleep apnea not on CPAP at home Hypertension Hyperlipidemia Plan: Patient is being continued on antibiotics will hold Zosyn. Patient is still hypotensive with increased irregular heart rate. Patient was started on amiodarone as per cardiology. Plan for IVC filter placement. Currently on Arixtra. Currently on IV hydration and follow-up closely. Prognosis guarded. Time with Patient: Greater than 30
--- NOTE | 2020-05-14 01:00 | P.PN ---
Subjective Progress Note Date: 05/13/20 Principal diagnosis: Septic shock due to Klebsiella pneumonia UTI and Pseudomonas bacteremia. Eitan Quezada is a 64 yo M with history of recently diagnosed small cell lung cancer with related lambert-eaton syndrome who presented to the hospital with worsening weakness, malaise and shortness of breath. He is approx 7 days s/p his first cycle of carboplatin and etoposide and feels his symptoms have worsened since that time. He has continued to experience severe weakness over the past few months. On presentation he was tachycardic and febrile, WBC 0.8k, Hgb 10.5, plt 36. CTA performed showed no PE and interval enlargement of his hilar mass to 6 cm. He was started on vancomycin and IV fluids, this morning pt complains of continued wet cough and shortness of breath. 05/12/2020 Patient is currently lying in the bed awake alert and appears to be in no mild distress. On oxygen at 2 L via nasal cannula. Patient has been afebrile. No fever no chills. Patient is hypotensive with blood pressure in upper 80s. Heart rate is elevated. Patient was started on amiodarone drip. Cardiology is following Urine culture showed Klebsiella pneumonia and blood culture showed Pseudomonas aeruginosa. Patient is being continued antibiotics no formal Zosyn. Pulmonary is on board. Laboratory data showed WBC 4.7, hemoglobin 8.6, platelets 44 Sodium 136, potassium 3.4, bicarb 20 and BUN 27 creatinine 0.87 Magnesium 1.7 05/13/2020 Patient seems to be more awake and oriented today. No apparent distress today. No complaints of chest pain. Shortness of breath did improve compared to yesterday. Patient was started on amiodarone drip due to atrial flutter. Otherwise patient is being continued on antibiotics in the form of Zosyn. Laboratory data showed WBC 15.3, hemoglobin 9.1 and platelets 69,000 Sodium 137, potassium 3.1 and BUN 33 and creatinine 1.08 TSH less than 0.015 and free T4 level is 1.77 within normal limits. Potassium was replaced. Patient is being continued on Arixtra for anticoagulation. Current medications reviewed. Objective - Vital Signs Vital signs: Vital Signs Temp 97.4 F L 05/13/20 08:10 Pulse 138 H 05/13/20 16:30 Resp 18 05/13/20 16:30 BP 102/51 05/13/20 16:30 Pulse Ox 93 L 05/13/20 16:30 Intake & Output 05/13/20 05/13/20 05/14/20 06:59 18:59 06:59 Intake Total 1458 Output Total 700 Balance 758 Weight Intake: Intake, IV Titration 1040 Amount Amiodarone 300 mg In 240 Dextrose 5% in Water 250 ml @ 0.5 MG/MIN 25 mls/hr IV .Q10H [facility] Rx#: [id number] Magnesium Sulfate-D5w Pmx 1 gm In Dextrose/Water 1 100ml.bag @ 100 mls/hr IVPB Q1H [facility] Rx#: [id number] Piperacillin-Tazobactam 3 100 .375 gm In Sodium Chloride 0.9% 100 ml @ 25 mls/hr IVPB Q8H [facility] Rx#: [id number] Sodium Chloride 0.9% 1, 700 000 ml @ 100 mls/hr IV . Q10H [facility] Rx#:[id number] Oral 418 Output: Urine 700 Uretheral (Todd) Stool Other: Voiding Method Indwelling Catheter # Bowel Movements 1 - Exam General: well nourished, well developed, NAD. Vitals reviewed Eyes: PERRL, EOMI, conjunctiva normal HENT: normocephalic, mucus membranes moist Neck: supple, no JVD Lungs: Increased respiratory effort, no wheezes. Rales at bases CV: Regular rate and rhythm, no murmur. Peripheral pulses 2+. Bilateral LE with 2+ edema Abdomen: soft, nondistended, no organomegaly Lymph: no cervical or axillary LAD Skin: warm and dry. Neuro: A&Ox3, normal mood and affect - Labs CBC & Chem 7: 05/13/20 06:39 05/13/20 06:39 Labs: Abnormal Lab Results - Last 24 Hours (Table) 05/13/20 05/13/20 05/13/20 Range/Units 06:04 06:39 06:39 WBC 15.3 H (3.8-10.6) k/uL RBC 2.84 L (4.30-5.90) m/uL Hgb 9.1 L (13.0-17.5) gm/dL Hct 29.0 L (39.0-53.0) % MCV 102.2 H (80.0-100.0) fL Plt Count 69 L D (150-450) k/uL Neutrophils # (Manual) 12.60 H (1.3-7.7) k/uL Metamyelocytes # (Man) 0.46 H (0) k/uL Myelocytes # (Manual) 0.77 H (0) k/uL Potassium 3.1 L (3.5-5.1) mmol/L Chloride 110 H (98-107) mmol/L Carbon Dioxide 19 L (22-30) mmol/L BUN 33 H (9-20) mg/dL Glucose 216 H (74-99) mg/dL POC Glucose (mg/dL) 220 H (75-99) mg/dL Calcium 7.2 L (8.4-10.2) mg/dL TSH (0.465-4.680) mIU/L 05/13/20 05/13/20 05/13/20 Range/Units 06:39 12:05 17:09 WBC (3.8-10.6) k/uL RBC (4.30-5.90) m/uL Hgb (13.0-17.5) gm/dL Hct (39.0-53.0) % MCV (80.0-100.0) fL Plt Count (150-450) k/uL Neutrophils # (Manual) (1.3-7.7) k/uL Metamyelocytes # (Man) (0) k/uL Myelocytes # (Manual) (0) k/uL Potassium (3.5-5.1) mmol/L Chloride (98-107) mmol/L Carbon Dioxide (22-30) mmol/L BUN (9-20) mg/dL Glucose (74-99) mg/dL POC Glucose (mg/dL) 336 H 215 H (75-99) mg/dL Calcium (8.4-10.2) mg/dL TSH <0.015 L (0.465-4.680) mIU/L 05/13/20 Range/Units 20:49 WBC (3.8-10.6) k/uL RBC (4.30-5.90) m/uL Hgb (13.0-17.5) gm/dL Hct (39.0-53.0) % MCV (80.0-100.0) fL Plt Count (150-450) k/uL Neutrophils # (Manual) (1.3-7.7) k/uL Metamyelocytes # (Man) (0) k/uL Myelocytes # (Manual) (0) k/uL Potassium (3.5-5.1) mmol/L Chloride (98-107) mmol/L Carbon Dioxide (22-30) mmol/L BUN (9-20) mg/dL Glucose (74-99) mg/dL POC Glucose (mg/dL) 167 H (75-99) mg/dL Calcium (8.4-10.2) mg/dL TSH (0.465-4.680) mIU/L Microbiology - Last 24 Hours (Table) 05/11/20 12:02 Blood Culture - Preliminary Blood No Growth after 48 hours 05/10/20 13:51 Urine Culture - Final Urine,Voided Klebsiella pneumoniae 05/10/20 16:20 Blood Culture Gram Stain - Final Blood Blood Culture - Final Pseudomonas aeruginosa Assessment and Plan Assessment: 1. Septic shock due to Klebsiella pneumonia UTI and Pseudomonas bacteremia. 1. Atrial flutter 2. Chemotherapy induced neutropenia. RLE DVT in light of thrombocytopenia. Oncology consulted, appreciate recommendations 3. Pulmonary edema. Secondary to chemotherapy, start IV lasix 40 mg bid 4. Small cell lung cancer. Lambert eaton syndrome 5. CAD. Continue coreg 5. T2DM. Continue accucheck, sliding scale 6. Obstructive sleep apnea not on CPAP at home Hypertension Hyperlipidemia Plan: Patient is being continued on antibiotics will hold Zosyn. Patient is still hypotensive with increased irregular heart rate. Patient was started on amiodarone as per cardiology. Plan for IVC filter placement. Currently on Arixtra. Currently on IV hydration and follow-up closely. Prognosis guarded. Time with Patient: Greater than 30
[2020-05-14 06:15] LABS: Glucose,Whole Blood 174 mg/dL (75-99)
--- NOTE | 2020-05-14 07:31 | XR ---
EXAMINATION TYPE: XR chest 1V portable DATE OF EXAM: 05/14/2020 CLINICAL HISTORY: Pneumonia in lung cancer progress study. TECHNIQUE: Single AP portable upright view of the chest is obtained. COMPARISON: Chest x-ray from 3 days earlier and older studies. CTA chest 4 days ago and older studies . FINDINGS: Improved aeration right midlung. Right hilar mass seen better on CT versus x-ray. There is left central mass or masslike consolidation silhouetting portion of thoracic aorta redemonstrated. P ersistent left infrahilar consolidation with air bronchograms is present. Persistent low lung volumes . Tiny left pleural effusion is suspected. Cardiac silhouette size stable and upper limits of normal. High riding right humeral head consistent with chronic rotator cuff tear noted. IMPRESSION: Low lung volumes redemonstrated. Persistent perihilar masses or masslike consolidation. New small to tiny left pleural effusion. Persistent left infrahilar acute infiltrate. Improved aerati on lateral right midlung otherwise no significant change from most recent x-ray.
[2020-05-14] MEDS: INSULIN ASPART (NovoLOG) 100 UNIT/ML VIAL SQ SCH ×4 (08:03→21:18)
[2020-05-14] MEDS: POTASSIUM CHLORIDE ER 20 MEQ TAB.ER PO SCH (08:24)
[2020-05-14] MEDS: METOPROLOL TARTRATE 50 MG TAB PO SCH ×2 (08:25→20:23)
[2020-05-14] MEDS: SPIRONOLACTONE 25 MG TAB PO SCH (08:25)
[2020-05-14] MEDS: MAG HYDROX/AL HYDROX/SIMETH 30 ML, LIDOCAINE VISCOUS 30 ML, diphenhydrAMINE ELIXIR 75 M... PO SCH ×12 (08:25→20:25)
[2020-05-14] MEDS: NYSTATIN 100,000 UNIT/ML SUSP 500,000 UNIT/5 ML CUP PO SCH ×4 (08:25→20:23)
[2020-05-14 09:06] LABS: HCT 31.6 % (39.0-53.0); HGB 9.5 gm/dL (13.0-17.5); Hypochromasia Marked; MCH 31.6 pg (25.0-35.0); MCHC 29.9 g/dL (31.0-37.0); MCV 105.5 fL (80.0-100.0); Macrocytosis Moderate; Mean Platelet Volume 11.7; Platelet Count 110 k/uL (150-450); WBC 37.1 k/uL (3.8-10.6)
[2020-05-14 09:09] LABS: Calcium 7.7 mg/dL (8.4-10.2); Potassium 5.7 mmol/L (3.5-5.1)
[2020-05-14 09:50] LABS: Nucleated Red Blood Cells 0 /100 WBC (0-0)
[2020-05-14 09:53] LABS: Band Neutrophils % 7 %; Blast Cells # (M) 1.11 k/uL (0); Lymphocytes # (M) 1.86 k/uL (1.0-4.8); Metamyelocytes # (M) 3.71 k/uL (0); Metamyelocytes % 10 %; Monocytes # (M) 1.11 k/uL (0-1.0); Myelocytes # (M) 4.08 k/uL (0); Myelocytes % 11 %; Neutrophils % (M) 62 %; Promyelocytes # (M) 0.37 k/uL (0); Promyelocytes % 1 %; Total Cells Counted 200
[2020-05-14 09:54] LABS: Poikilocytosis (M) Present
[2020-05-14] MEDS: SODIUM CHLORIDE 0.9% 1,000 ML IV SCH ×2 (10:46→16:48)
[2020-05-14] MEDS ORDERED: DILTIAZEM DRIP BOLUS FROM BAG 1 MG SOLN IV ONE (10:47)
[2020-05-14] MEDS: PIPERACILLIN-TAZOBACTAM 3.375 GM in SODIUM CHLORIDE 0.9% 100 ML IVPB SCH ×3 (10:47→20:19)
[2020-05-14] MEDS: HYDROcodone/APAP 5-325MG 1 EACH TAB PO PRN (11:19)
[2020-05-14] MEDS: DILTIAZEM 125 MG in SODIUM CHLORIDE 0.9% 100 ML IV SCH (11:23)
--- NOTE | 2020-05-14 11:58 | P.PN ---
Subjective Progress Note Date: 05/14/20 Principal diagnosis: DVT of right lower extremity The patient was seen and examined at the bedside. He states his breathing overall has improved, however he lays back it does worsen. He denies any chest pain or shortness of breath at this time. He has bilateral lower extremity swelling, however denies any pain in the lower extremities at this time. Blood cultures on 05/10/2020 showed Pseudomonas and urinalysis showed Klebsiella pneumonia in 05/07/2020. He is currently being treated with Zosyn. His repeat blood culture is pending, preliminary shows no growth for 48 hours. He Remains afebrile. Objective - Vital Signs Vital signs: Vital Signs Temp 97.8 F 05/14/20 11:14 Pulse 125 H 05/14/20 11:14 Resp 20 05/14/20 11:14 BP 108/70 05/14/20 11:25 Pulse Ox 96 05/14/20 11:14 Intake & Output 05/13/20 05/14/20 05/14/20 18:59 06:59 18:59 Intake Total 1458 212.917 100 Output Total 700 203 Balance 758 9.917 100 Weight 95.5 kg Intake: Intake, IV Titration 1040 212.917 Amount Amiodarone 300 mg In 240 212.917 Dextrose 5% in Water 250 ml @ 0.5 MG/MIN 25 mls/hr IV .Q10H [facility] Rx#: [id number] Piperacillin-Tazobactam 3 100 .375 gm In Sodium Chloride 0.9% 100 ml @ 25 mls/hr IVPB Q8H [facility] Rx#: [id number] Sodium Chloride 0.9% 1, 700 000 ml @ 100 mls/hr IV . Q10H [facility] Rx#:[id number] Oral 418 100 Output: Urine 700 200 Stool 3 Other: Voiding Method Indwelling Catheter Indwelling Catheter Indwelling Catheter # Bowel Movements 1 1 - Exam General appearance: The patient is alert, oriented, in no acute distress. Chronically ill appearing. HET: Head is normocephalic and atraumatic. Neck: Supple without lymphadenopathy. Trachea midline. Heart: S1 S2. Regular rate and rhythm. Lungs: Clear to auscultation. Abdomen: Soft, nontender, nondistended with bowel sounds. Extremities: Pale, no rashes, clubbing or cyanosis. Bilateral lower extremity pitting edema, without redness or warmth. Neurological: No focal deficits. Strength and sensation are grossly intact. - Labs CBC & Chem 7: 05/14/20 08:29 05/14/20 08:29 Labs: Abnormal Lab Results - Last 24 Hours (Table) 05/13/20 05/13/20 05/13/20 Range/Units 12:05 17:09 20:49 WBC (3.8-10.6) k/uL RBC (4.30-5.90) m/uL Hgb (13.0-17.5) gm/dL Hct (39.0-53.0) % MCV (80.0-100.0) fL MCHC (31.0-37.0) g/dL Plt Count (150-450) k/uL Blast Cells % % Neutrophils # (Manual) (1.3-7.7) k/uL Monocytes # (Manual) (0-1.0) k/uL Metamyelocytes # (Man) (0) k/uL Myelocytes # (Manual) (0) k/uL Promyelocytes # (Man) (0) k/uL Blast Cells # (Man) (0) k/uL Potassium (3.5-5.1) mmol/L Chloride (98-107) mmol/L Carbon Dioxide (22-30) mmol/L BUN (9-20) mg/dL Glucose (74-99) mg/dL POC Glucose (mg/dL) 336 H 215 H 167 H (75-99) mg/dL Calcium (8.4-10.2) mg/dL 05/14/20 05/14/20 05/14/20 Range/Units 06:13 08:29 08:29 WBC 37.1 H (3.8-10.6) k/uL RBC 3.00 L (4.30-5.90) m/uL Hgb 9.5 L (13.0-17.5) gm/dL Hct 31.6 L (39.0-53.0) % MCV 105.5 H (80.0-100.0) fL MCHC 29.9 L (31.0-37.0) g/dL Plt Count 110 L D (150-450) k/uL Blast Cells % 3 H* % Neutrophils # (Manual) 25.50 H (1.3-7.7) k/uL Monocytes # (Manual) 1.11 H (0-1.0) k/uL Metamyelocytes # (Man) 3.71 H (0) k/uL Myelocytes # (Manual) 4.08 H (0) k/uL Promyelocytes # (Man) 0.37 H (0) k/uL Blast Cells # (Man) 1.11 H (0) k/uL Potassium 5.7 H (3.5-5.1) mmol/L Chloride 115 H (98-107) mmol/L Carbon Dioxide 18 L (22-30) mmol/L BUN 38 H (9-20) mg/dL Glucose 189 H (74-99) mg/dL POC Glucose (mg/dL) 174 H (75-99) mg/dL Calcium 7.7 L (8.4-10.2) mg/dL Microbiology - Last 24 Hours (Table) 05/11/20 12:02 Blood Culture - Preliminary Blood No Growth after 48 hours Assessment and Plan Assessment: #1 right lower extremity common, deep and mid femoral vein DVT #2 thrombocytopenia #3 Pseudomonas bacteremia #4 Klebsiella UTI Plan: The patient is being followed by oncology as well as his primary care. There have been discussions regarding possible consideration for hospice care. The patient's is coming in this afternoon for further discussion with oncology. Patient is tentatively scheduled for IVC filter tomorrow. Patient agrees at this time that he would like to proceed with procedure if stable. Nothing by mouth after midnight. Hold Arixtra 24 hours prior to surgery. Await final blood culture results. Further recommendations to follow. The impression and plan of care has been dictated as directed. Dr. Todd I performed a history and examination of this patient, discussed the same with the dictator. I agree with the dictator's note ,documented as a scribe. Any additional findings or plans will be noted.
[2020-05-14 12:04] LABS: Glucose,Whole Blood 206 mg/dL (75-99)
--- NOTE | 2020-05-14 12:17 | P.PN ---
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 He is approx 7 days s/p his first cycle of carboplatin and etoposide and feels his symptoms have worsened since that time. He has continued to experience severe weakness over the past few months. On presentation he was tachycardic and febrile, WBC 0.8k, Hgb 10.5, plt 36. CTA performed showed no PE and interval enlargement of his hilar mass to 6 cm. He was started on vancomycin and IV fluids, this morning pt complains of continued wet cough and shortness of breath. Complains of just generalized weakness, weak cough,shortness of breath. Maintaining O2 sats in the 90s on 5 L nasal cannula. Afebrile. Objective - Vital Signs Vital signs: Vital Signs Temp 97.8 F 05/14/20 04:00 Pulse 144 H 05/14/20 04:00 Resp 18 05/14/20 04:00 BP 127/92 05/14/20 04:00 Pulse Ox 93 L 05/14/20 04:00 Intake & Output 05/13/20 05/14/20 05/14/20 18:59 06:59 18:59 Intake Total 1458 212.917 Output Total 700 203 Balance 758 9.917 Weight 95.5 kg Intake: Intake, IV Titration 1040 212.917 Amount Amiodarone 300 mg In 240 212.917 Dextrose 5% in Water 250 ml @ 0.5 MG/MIN 25 mls/hr IV .Q10H [facility] Rx#: [id number] Piperacillin-Tazobactam 3 100 .375 gm In Sodium Chloride 0.9% 100 ml @ 25 mls/hr IVPB Q8H [facility] Rx#: [id number] Sodium Chloride 0.9% 1, 700 000 ml @ 100 mls/hr IV . Q10H [facility] Rx#:[id number] Oral 418 Output: Urine 700 200 Stool 3 Other: Voiding Method Indwelling Catheter Indwelling Catheter # Bowel Movements 1 1 - Exam General: well nourished, well developed, NAD. Vitals reviewed Eyes: PERRL, EOMI, conjunctiva normal HENT: normocephalic, mucus membranes moist Neck: supple, no JVD Lungs: Increased respiratory effort, no wheezes. Rales at bases CV: Regular rate and rhythm, no murmur. Tachycardic ,Peripheral pulses 2+. Bilateral LE with 2+ edema Abdomen: soft, nondistended, no organomegaly Lymph: no cervical or axillary LAD Skin: warm and dry. Neuro: A&Ox3, normal mood and affect Microbiology 05/11/20 12:02 Blood Blood Culture - Preliminary No Growth after 48 hours 05/10/20 13:51 Urine,Voided Urine Culture - Final Klebsiella pneumoniae 05/10/20 16:20 Blood Blood Culture Gram Stain - Final 05/10/20 16:20 Blood Blood Culture - Final Pseudomonas aeruginosa 05/10/20 16:20 Blood Blood Culture - Final - Labs CBC & Chem 7: 05/14/20 08:29 05/14/20 08:29 Labs: Abnormal Lab Results - Last 24 Hours (Table) 05/13/20 05/13/20 05/13/20 Range/Units 06:39 06:39 06:39 WBC 15.3 H (3.8-10.6) k/uL RBC 2.84 L (4.30-5.90) m/uL Hgb 9.1 L (13.0-17.5) gm/dL Hct 29.0 L (39.0-53.0) % MCV 102.2 H (80.0-100.0) fL Plt Count 69 L D (150-450) k/uL Neutrophils # (Manual) 12.60 H (1.3-7.7) k/uL Metamyelocytes # (Man) 0.46 H (0) k/uL Myelocytes # (Manual) 0.77 H (0) k/uL Potassium 3.1 L (3.5-5.1) mmol/L Chloride 110 H (98-107) mmol/L Carbon Dioxide 19 L (22-30) mmol/L BUN 33 H (9-20) mg/dL Glucose 216 H (74-99) mg/dL POC Glucose (mg/dL) (75-99) mg/dL Calcium 7.2 L (8.4-10.2) mg/dL TSH <0.015 L (0.465-4.680) mIU/L 05/13/20 05/13/2020 Range/Units 12:05 17:09 20:49 WBC (3.8-10.6) k/uL RBC (4.30-5.90) m/uL Hgb (13.0-17.5) gm/dL Hct (39.0-53.0) % MCV (80.0-100.0) fL Plt Count (150-450) k/uL Neutrophils # (Manual) (1.3-7.7) k/uL Metamyelocytes # (Man) (0) k/uL Myelocytes # (Manual) (0) k/uL Potassium (3.5-5.1) mmol/L Chloride (98-107) mmol/L Carbon Dioxide (22-30) mmol/L BUN (9-20) mg/dL Glucose (74-99) mg/dL POC Glucose (mg/dL) 336 H 215 H 167 H (75-99) mg/dL Calcium (8.4-10.2) mg/dL TSH (0.465-4.680) mIU/L 05/14/20 Range/Units 06:13 WBC (3.8-10.6) k/uL RBC (4.30-5.90) m/uL Hgb (13.0-17.5) gm/dL Hct (39.0-53.0) % MCV (80.0-100.0) fL Plt Count (150-450) k/uL Neutrophils # (Manual) (1.3-7.7) k/uL Metamyelocytes # (Man) (0) k/uL Myelocytes # (Manual) (0) k/uL Potassium (3.5-5.1) mmol/L Chloride (98-107) mmol/L Carbon Dioxide (22-30) mmol/L BUN (9-20) mg/dL Glucose (74-99) mg/dL POC Glucose (mg/dL) 174 H (75-99) mg/dL Calcium (8.4-10.2) mg/dL TSH (0.465-4.680) mIU/L Microbiology - Last 24 Hours (Table) 05/11/20 12:02 Blood Culture - Preliminary Blood No Growth after 48 hours 05/10/20 13:51 Urine Culture - Final Urine,Voided Klebsiella pneumoniae Assessment and Plan Assessment: (1) Severe sepsis with acute organ dysfunction due to acute UTI with Klebsiella pneumoniae, bacteremia with pseudomonas aeruginosa Current Visit: Yes Status: Acute Code(s): A41.52 - SEPSIS DUE TO PSEUDOMONAS; R65.20 - SEVERE SEPSIS WITHOUT SEPTIC SHOCK SNOMED Code(s): 383003965940885 (2) Lambert-Eaton myasthenic syndrome Current Visit: Yes Status: Acute Code(s): G70.80 - LAMBERT-EATON SYNDROME, UNSPECIFIED SNOMED Code(s): 08017167 (3) Cavitary lesion of lung Current Visit: Yes Status: Acute Code(s): J98.4 - OTHER DISORDERS OF LUNG SNOMED Code(s): 917887628 (4) Chemotherapy induced neutropenia Current Visit: Yes Status: Acute Code(s): D70.1 - AGRANULOCYTOSIS SECONDARY TO CANCER CHEMOTHERAPY; T45.1X5A - ADVERSE EFFECT OF ANTINEOPLASTIC AND IMMUNOSUP DRUGS, INIT SNOMED Code(s): 573810484 (5) Pancytopenia Current Visit: Yes Status: Acute Code(s): D61.818 - OTHER PANCYTOPENIA SNOMED Code(s): 302467663 (6) Right leg DVT, IVC filter pending, anticoagulated currently on Arixtra Current Visit: Yes Status: Acute Code(s): I82.401 - ACUTE EMBOLISM AND THOMBOS UNSP DEEP VEINS OF R LOW EXTREM SNOMED Code(s): 995181181 (7) Small cell lung cancer Current Visit: Yes Status: Acute Priority: High Code(s): C34.90 - MALIGNANT NEOPLASM OF UNSP PART OF UNSP BRONCHUS OR LUNG SNOMED Code(s): 460819906 (8) Pressure ulcer of sacral region, stage 2 Current Visit: No Status: Acute Code(s): L89.152 - PRESSURE ULCER OF SACRAL REGION, STAGE 2 SNOMED Code(s): 082828927 (9) Type 2 diabetes mellitus Current Visit: No Status: Acute Code(s): E11.9 - TYPE 2 DIABETES MELLITUS WITHOUT COMPLICATIONS SNOMED Code(s): 89093445 (10) hyperkalemic, recheck pending (11) pulmonary edema secondary to chemotherapy (12) CAD (13) A. fib with RVR, new onset Plan: Continue on current medication regime ,monitoring and symptomatic treatment. Labs suggesting hyperkalemia today, patient received potassium this morning. Aldactone and potassium discontinued, repeat levels pending. Antiarrhythmics as per cardiology. Maintain IV fluid hydration. Continue on IV antibiotics of Zosyn, repeat blood cultures in progress. Scheduled for IVC filter tomorrow. Significant weakness. Patient discussing proceeding with chemotherapy versus hospice and will discuss with when she arrives. Prognosis guarded given multiple complex medical issues. The impression and plan of care has been dictated as directed. : I performed a history and examination of this patient, discussed the same with the dictator. I agree with the dictator's note ,documented as a scribe. Any additional findings or plans will be noted.
--- NOTE | 2020-05-14 14:20 | P.PN ---
Subjective Progress Note Date: 05/14/20 HISTORY OF PRESENT ILLNESS: Patient examined this morning at the bedside. Patient denies chest pain or pressure. He denies shortness of breath at the time of examination but states she becomes short of breath with mild exertion or when he is laid flat. Patient's potassium is 5.7 today. Unfortunately, he did receive his potassium supplement this morning per nursing. Patient remains in A. fib with RVR. Heart rate in the 130s. PHYSICAL EXAM: VITAL SIGNS: Reviewed. GENERAL: Well-developed in no acute distress. NECK: Supple. No JVD or thyromegaly LUNGS: Respirations even and unlabored. Lungs diminished bilaterally. HEART: Irregular rate and rhythm. S1 and S2 heard. EXTREMITIES: Normal range of motion. No clubbing or cyanosis. Peripheral pulses intact. 2-3+ bilateral lower extremity edema ASSESSMENT: Septic shock, secondary to underlying Klebsiella pneumonia UTI and pseudomonas aeruginosa in the blood Metastatic small cell lung cancer Hyperkalemia Paroxysmal atrial fibrillation with RVR Acute DVT of right lower extremity, on Arixtra Obstructive sleep apnea Hypertension Hyperlipidemia PLAN: Discontinue scheduled potassium supplementation secondary to hyperkalemia Discontinue Aldactone secondary to hyperkalemia Repeat potassium level at 1400 Cardizem 10 mg IV 1. Begin Cardizem drip at 5 mg an hour Monitor heart rate Nurse practitioner note has been reviewed by physician. Signing provider agrees with the documented findings, assessment, and plan of care. Objective - Vital Signs Vital signs: Vital Signs Temp 97.8 F 05/14/20 11:14 Pulse 125 H 05/14/20 11:14 Resp 20 05/14/20 11:14 BP 108/70 05/14/20 11:25 Pulse Ox 96 05/14/20 11:14 Intake & Output 05/13/20 05/14/20 05/14/20 18:59 06:59 18:59 Intake Total 1458 212.917 100 Output Total 700 203 Balance 758 9.917 100 Weight 95.5 kg Intake: Intake, IV Titration 1040 212.917 Amount Amiodarone 300 mg In 240 212.917 Dextrose 5% in Water 250 ml @ 0.5 MG/MIN 25 mls/hr IV .Q10H [facility] Rx#: [id number] Piperacillin-Tazobactam 3 100 .375 gm In Sodium Chloride 0.9% 100 ml @ 25 mls/hr IVPB Q8H [facility] Rx#: [id number] Sodium Chloride 0.9% 1, 700 000 ml @ 100 mls/hr IV . Q10H [facility] Rx#:[id number] Oral 418 100 Output: Urine 700 200 Stool 3 Other: Voiding Method Indwelling Catheter Indwelling Catheter Indwelling Catheter # Bowel Movements 1 1 - Labs CBC & Chem 7: 05/14/20 08:29 05/14/20 08:29 Labs: Abnormal Lab Results - Last 24 Hours (Table) 05/13/20 05/13/20 05/14/20 Range/Units 17:09 20:49 06:13 WBC (3.8-10.6) k/uL RBC (4.30-5.90) m/uL Hgb (13.0-17.5) gm/dL Hct (39.0-53.0) % MCV (80.0-100.0) fL MCHC (31.0-37.0) g/dL Plt Count (150-450) k/uL Blast Cells % % Neutrophils # (Manual) (1.3-7.7) k/uL Monocytes # (Manual) (0-1.0) k/uL Metamyelocytes # (Man) (0) k/uL Myelocytes # (Manual) (0) k/uL Promyelocytes # (Man) (0) k/uL Blast Cells # (Man) (0) k/uL Potassium (3.5-5.1) mmol/L Chloride (98-107) mmol/L Carbon Dioxide (22-30) mmol/L BUN (9-20) mg/dL Glucose (74-99) mg/dL POC Glucose (mg/dL) 215 H 167 H 174 H (75-99) mg/dL Calcium (8.4-10.2) mg/dL 05/14/20 05/14/20 05/14/20 Range/Units 08:29 08:29 11:56 WBC 37.1 H (3.8-10.6) k/uL RBC 3.00 L (4.30-5.90) m/uL Hgb 9.5 L (13.0-17.5) gm/dL Hct 31.6 L (39.0-53.0) % MCV 105.5 H (80.0-100.0) fL MCHC 29.9 L (31.0-37.0) g/dL Plt Count 110 L D (150-450) k/uL Blast Cells % 3 H* % Neutrophils # (Manual) 25.50 H (1.3-7.7) k/uL Monocytes # (Manual) 1.11 H (0-1.0) k/uL Metamyelocytes # (Man) 3.71 H (0) k/uL Myelocytes # (Manual) 4.08 H (0) k/uL Promyelocytes # (Man) 0.37 H (0) k/uL Blast Cells # (Man) 1.11 H (0) k/uL Potassium 5.7 H (3.5-5.1) mmol/L Chloride 115 H (98-107) mmol/L Carbon Dioxide 18 L (22-30) mmol/L BUN 38 H (9-20) mg/dL Glucose 189 H (74-99) mg/dL POC Glucose (mg/dL) 206 H (75-99) mg/dL Calcium 7.7 L (8.4-10.2) mg/dL Microbiology - Last 24 Hours (Table) 05/11/20 12:02 Blood Culture - Preliminary Blood No Growth after 48 hours
--- NOTE | 2020-05-14 15:29 | P.PN ---
Subjective Progress Note Date: 05/14/20 Principal diagnosis: Sepsis secondary to underlying urinary tract infection This is a 64-year-old male patient with a recent diagnosis of small cell lung cancer who is currently on a combination of chemotherapy including carboplatin and RADAR ENGINEER-16. Diagnosis established on 04/11/2020 and the patient underwent a navigational bronchoscopy of the left upper lobe mass that confirmed the diagnosis. PET scan revealed suspicious uptake in the right supra hilar area and the patient has a right suprahilar mass, right hilar mass, pretracheal lymph nodes, left adrenal gland showed a mass with increased uptake in addition to uptake within the right adrenal gland. 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 The patient came in yesterday to the hospital with further weakness, generalized body weakness post systemic chemotherapy and received his first cycle of systemic chemotherapy around 5 days ago. He had an outpatient urinalysis and urine culture that was done on 05/07/2020 and was positive for Klebsiella pneumoniae. His blood cultures also showing gram-negative bacillus. The patient had a white cell count of 0.8 at time of admission and this morning his white cell count is at 2.1 with an absolute neutrophil count of 1.4K. The patient was started on IV cefepime. Earlier this morning he was having some worsening shortness of breath. He was felt to be in fluid overload and he was given a dose of Lasix 40 mg and following that he producing adequate amount of urine output. He has increased lower extremity edema and Doppler of the lower extremity be obtained. CAT scan of the chest that was repeated in the emergency department was consistent with small cell lung cancer, metastatic. The patient is seen today 05/12/2020 in follow-up on the selective care unit. He is currently sitting up in bed. Awake and alert in no acute distress. Maintaining O2 saturations in the 90s on 2 L/m per nasal cannula. She's afebrile. He's been somewhat hypotensive. Blood pressure 88/56 this morning. He did receive Coreg. White count 4.7. Hemoglobin 8.6. Platelet count 44,000. Blast cells 2. Glipizide 0.19. Sodium 136. Potassium 3.4. Bicarb 20. Crea tinine 0.87. Urine culture positive for gram-negative bacilli, sputum culture positive for pseudomonas species. Final results pending. Dopplers positive for right lower extremity DVT. He is currently on Zosyn. Continued on IV diuretics, Arixtra, Zarxio. 0.9 normal saline at 100 ML's per hour. Patient is seen today in 05/13/2020 in follow-up on the selective care unit. He is currently resting comfortably in bed. A bit more weak and fatigued today compared to yesterday. He did have ongoing issues with atrial fibrillation with rapid ventricular response. He is on amiodarone at 0.5 mg per minute. Anticoagulated with Arixtra. 0.9 normal saline at 100 MLS per hour. He is on 4 L/m per nasal cannula to maintain O2 saturations in the 90s. White count 15.3. Hemoglobin 9.1. Platelet count 69,000. Sodium 137. Potassium 3.1. Creatinine 1.08. TSH 0.015. Free T4 1 0.77. He is status post 2 units of platelets this admission thus far. He remains on Zosyn. On 05/14/2020 patient seen in follow-up on selective care unit. Patient is awake and alert, in no acute distress, 5 L of oxygen pulse ox of 96%, does get short of breath with exertion, but has been afebrile. He remains very weak, but breathing comfortably at rest, no hemoptysis, no chest pain, he is on antibiotics in the form of Zosyn for Klebsiella pneumonia in the urine, and pseudomonas aeruginosa in the blood cultures, complains of nausea, but no vomiting, no abdominal pain. Continues to be in A. fib with RVR, and he is being started on Cardizem infusion per cardiology, platelet count is 110, patient is on Arixtra per hematology. He also received 2 units of platelets last Thursday and last Thursday. White blood cell count is significantly decreased on today's labs, up to 37.1, hemoglobin is 9.5, sodium is 139, potassium is 5.7, chloride is 1:15, CO2 is 18, BUN is 38 and creatinine is 1.24. He is receiving IV hydration with 0.9 normal saline at a rate of 100 ML per hour, does have some generalized swelling. He's had no nausea or vomiting, no altered mentation, he is answering questions appropriately. His follow-up blood culture has shown no growth at the 72 hour dennis Objective - Vital Signs Vital signs: Vital Signs Temp 97.8 F 05/14/20 11:14 Pulse 125 H 05/14/20 11:14 Resp 20 05/14/20 11:14 BP 108/70 05/14/20 11:25 Pulse Ox 96 05/14/20 11:14 Intake & Output 05/13/20 05/14/20 05/14/20 18:59 06:59 18:59 Intake Total 1458 212.917 100 Output Total 700 203 Balance 758 9.917 100 Weight 95.5 kg 95.5 kg Intake: Intake, IV Titration 1040 212.917 Amount Amiodarone 300 mg In 240 212.917 Dextrose 5% in Water 250 ml @ 0.5 MG/MIN 25 mls/hr IV .Q10H [facility] Rx#: [id number] Piperacillin-Tazobactam 3 100 .375 gm In Sodium Chloride 0.9% 100 ml @ 25 mls/hr IVPB Q8H [facility] Rx#: [id number] Sodium Chloride 0.9% 1, 700 000 ml @ 100 mls/hr IV . Q10H [facility] Rx#:[id number] Oral 418 100 Output: Urine 700 200 Stool 3 Other: Voiding Method Indwelling Catheter Indwelling Catheter Indwelling Catheter # Bowel Movements 1 1 - Exam GENERAL EXAM: Alert, very pleasant, 64-year-old white male, appears to be generally weak, he is on 5 L of oxygen satting 95-97%, resting in bed, appears to be comfortable in no apparent distress. HEAD: Normocephalic/atraumatic. EYES: Normal reaction of pupils, equal size. Conjunctiva pink, sclera white. NOSE: Clear with pink turbinates. THROAT: No erythema or exudates. NECK: No masses, no JVD, no thyroid enlargement, no adenopathy. CHEST: No chest wall deformity. Symmetrical expansion. LUNGS: Equal air entry with no crackles, wheeze, rhonchi or dullness. CVS: Irregular rate and rhythm, normal S1 and S2, no gallops, no murmurs, no rubs ABDOMEN: Soft, nontender. No hepatosplenomegaly, normal bowel sounds, no guarding or rigidity. EXTREMITIES: No clubbing, 1+ lower extremity edema, no cyanosis, 2+ pulses and upper and lower extremities. MUSCULOSKELETAL: Muscle strength and tone normal. SPINE: No scoliosis or deformity SKIN: No rashes CENTRAL NERVOUS SYSTEM: Alert and oriented -3. No focal deficits, tone is normal in all 4 extremities. PSYCHIATRIC: Alert and oriented -3. Appropriate affect. Intact judgment and insight. - Labs CBC & Chem 7: 05/14/20 08:29 05/14/20 14:27 Labs: Abnormal Lab Results - Last 24 Hours (Table) 05/13/20 05/13/20 05/14/20 Range/Units 17:09 20:49 06:13 WBC (3.8-10.6) k/uL RBC (4.30-5.90) m/uL Hgb (13.0-17.5) gm/dL Hct (39.0-53.0) % MCV (80.0-100.0) fL MCHC (31.0-37.0) g/dL Plt Count (150-450) k/uL Blast Cells % % Neutrophils # (Manual) (1.3-7.7) k/uL Monocytes # (Manual) (0-1.0) k/uL Metamyelocytes # (Man) (0) k/uL Myelocytes # (Manual) (0) k/uL Promyelocytes # (Man) (0) k/uL Blast Cells # (Man) (0) k/uL Potassium (3.5-5.1) mmol/L Chloride (98-107) mmol/L Carbon Dioxide (22-30) mmol/L BUN (9-20) mg/dL Glucose (74-99) mg/dL POC Glucose (mg/dL) 215 H 167 H 174 H (75-99) mg/dL Calcium (8.4-10.2) mg/dL 05/14/20 05/14/20 05/14/20 Range/Units 08:29 08:29 11:56 WBC 37.1 H (3.8-10.6) k/uL RBC 3.00 L (4.30-5.90) m/uL Hgb 9.5 L (13.0-17.5) gm/dL Hct 31.6 L (39.0-53.0) % MCV 105.5 H (80.0-100.0) fL MCHC 29.9 L (31.0-37.0) g/dL Plt Count 110 L D (150-450) k/uL Blast Cells % 3 H* % Neutrophils # (Manual) 25.50 H (1.3-7.7) k/uL Monocytes # (Manual) 1.11 H (0-1.0) k/uL Metamyelocytes # (Man) 3.71 H (0) k/uL Myelocytes # (Manual) 4.08 H (0) k/uL Promyelocytes # (Man) 0.37 H (0) k/uL Blast Cells # (Man) 1.11 H (0) k/uL Potassium 5.7 H (3.5-5.1) mmol/L Chloride 115 H (98-107) mmol/L Carbon Dioxide 18 L (22-30) mmol/L BUN 38 H (9-20) mg/dL Glucose 189 H (74-99) mg/dL POC Glucose (mg/dL) 206 H (75-99) mg/dL Calcium 7.7 L (8.4-10.2) mg/dL 05/14/20 Range/Units 14:27 WBC (3.8-10.6) k/uL RBC (4.30-5.90) m/uL Hgb (13.0-17.5) gm/dL Hct (39.0-53.0) % MCV (80.0-100.0) fL MCHC (31.0-37.0) g/dL Plt Count (150-450) k/uL Blast Cells % % Neutrophils # (Manual) (1.3-7.7) k/uL Monocytes # (Manual) (0-1.0) k/uL Metamyelocytes # (Man) (0) k/uL Myelocytes # (Manual) (0) k/uL Promyelocytes # (Man) (0) k/uL Blast Cells # (Man) (0) k/uL Potassium 5.7 H (3.5-5.1) mmol/L Chloride (98-107) mmol/L Carbon Dioxide (22-30) mmol/L BUN (9-20) mg/dL Glucose (74-99) mg/dL POC Glucose (mg/dL) (75-99) mg/dL Calcium (8.4-10.2) mg/dL Microbiology - Last 24 Hours (Table) 05/11/20 12:02 Blood Culture - Preliminary Blood No Growth after 72 hours Assessment and Plan Plan: Assessment: 1 septic shock likely secondary to underlying Klebsiella pneumonia UTI and pseudomonas aeruginosa in the blood awaiting final cultures. 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 fib with RVR 11 hyperkalemia, Aldactone and potassium supplements have been placed on hold Plan: Continue with Zosyn for antibiotic coverage, follow blood culture has shown no growth, cut back to IV fluids to 40 ML per hour, patient appears generally swollen, recurrent medications per cardiology, patient continues on Arixtra for anticoagulation. His been afebrile, remains generally weak, maintain aspiration precautions, overall prognosis is guarded. We'll continue to follow I performed a history & physical examination of the patient and discussed their management with my nurse practitioner, Leandra Cruz. I reviewed the nurse pr actitioner's note and agree with the documented findings and plan of care. Lung sounds are positive for diminished breath sounds The findings and the impression was discussed with the patient. I attest to the documentation by the nurse practitioner. Time with Patient: Less than 30
[2020-05-14 16:35] LABS: Glucose,Whole Blood 236 mg/dL (75-99)
--- NOTE | 2020-05-14 16:36 | P.PN ---
Subjective Progress Note Date: 05/14/20 Principal diagnosis: Sepsis Afebrile today, seen and evaluated. No acute distress. Maintaining oxygenation this am at 95% on 5L. Continues on antibiotics for bacteremia and UTI. Repeat cultures negative 48 hours. PLatlelts are improving and 110 today. He was started on arixtra for treatment of acute thrombosis in LE and a-fib eith RVR (cardio following and infusing cardizem gtt). He has no new complaints, with exception of his overall weakness Objective - Vital Signs Vital signs: Vital Signs Temp 97.8 F 05/14/20 11:14 Pulse 125 H 05/14/20 11:14 Resp 20 05/14/20 11:14 BP 108/70 05/14/20 11:25 Pulse Ox 96 05/14/20 11:14 Intake & Output 05/13/20 05/14/20 05/14/20 18:59 06:59 18:59 Intake Total 1458 212.917 100 Output Total 700 203 Balance 758 9.917 100 Weight 95.5 kg Intake: Intake, IV Titration 1040 212.917 Amount Amiodarone 300 mg In 240 212.917 Dextrose 5% in Water 250 ml @ 0.5 MG/MIN 25 mls/hr IV .Q10H [facility] Rx#: [id number] Piperacillin-Tazobactam 3 100 .375 gm In Sodium Chloride 0.9% 100 ml @ 25 mls/hr IVPB Q8H [facility] Rx#: [id number] Sodium Chloride 0.9% 1, 700 000 ml @ 100 mls/hr IV . Q10H [facility] Rx#:[id number] Oral 418 100 Output: Urine 700 200 Stool 3 Other: Voiding Method Indwelling Catheter Indwelling Catheter Indwelling Catheter # Bowel Movements 1 1 - Exam General: Lethargic weak, comfortable appearance. Head: Normocephalic, atraumatic. Eyes: Symmetric. Pupils equal round. Ears: Symmetric. PAIUTE-SHOSHONE Mouth: Dry Neck: Supple. Cardiac: Tachy Lungs: Diminished Abdomen: Soft active nontender. Extremities: Atrophy to muscular tone. + BLE edema Neurological: Mental status: cooperative, pleasant. Cranial nerves: Symmetric facial Motor: does not elevate them or move legs. Mobility: Wheelchair at baseline - Labs CBC & Chem 7: 05/14/20 08:29 05/14/20 14:27 Labs: Abnormal Lab Results - Last 24 Hours (Table) 05/13/20 05/13/20 05/14/20 Range/Units 17:09 20:49 06:13 WBC (3.8-10.6) k/uL RBC (4.30-5.90) m/uL Hgb (13.0-17.5) gm/dL Hct (39.0-53.0) % MCV (80.0-100.0) fL MCHC (31.0-37.0) g/dL Plt Count (150-450) k/uL Blast Cells % % Neutrophils # (Manual) (1.3-7.7) k/uL Monocytes # (Manual) (0-1.0) k/uL Metamyelocytes # (Man) (0) k/uL Myelocytes # (Manual) (0) k/uL Promyelocytes # (Man) (0) k/uL Blast Cells # (Man) (0) k/uL Potassium (3.5-5.1) mmol/L Chloride (98-107) mmol/L Carbon Dioxide (22-30) mmol/L BUN (9-20) mg/dL Glucose (74-99) mg/dL POC Glucose (mg/dL) 215 H 167 H 174 H (75-99) mg/dL Calcium (8.4-10.2) mg/dL 05/14/20 05/14/20 05/14/20 Range/Units 08:29 08:29 11:56 WBC 37.1 H (3.8-10.6) k/uL RBC 3.00 L (4.30-5.90) m/uL Hgb 9.5 L (13.0-17.5) gm/dL Hct 31.6 L (39.0-53.0) % MCV 105.5 H (80.0-100.0) fL MCHC 29.9 L (31.0-37.0) g/dL Plt Count 110 L D (150-450) k/uL Blast Cells % 3 H* % Neutrophils # (Manual) 25.50 H (1.3-7.7) k/uL Monocytes # (Manual) 1.11 H (0-1.0) k/uL Metamyelocytes # (Man) 3.71 H (0) k/uL Myelocytes # (Manual) 4.08 H (0) k/uL Promyelocytes # (Man) 0.37 H (0) k/uL Blast Cells # (Man) 1.11 H (0) k/uL Potassium 5.7 H (3.5-5.1) mmol/L Chloride 115 H (98-107) mmol/L Carbon Dioxide 18 L (22-30) mmol/L BUN 38 H (9-20) mg/dL Glucose 189 H (74-99) mg/dL POC Glucose (mg/dL) 206 H (75-99) mg/dL Calcium 7.7 L (8.4-10.2) mg/dL Microbiology - Last 24 Hours (Table) 05/11/20 12:02 Blood Culture - Preliminary Blood No Growth after 48 hours Assessment and Plan (1) Right leg DVT Current Visit: Yes Status: Acute Code(s): I82.401 - ACUTE EMBOLISM AND THOMBOS UNSP DEEP VEINS OF R LOW EXTREM SNOMED Code(s): 505835828 (2) Pancytopenia Current Visit: Yes Status: Acute Code(s): D61.818 - OTHER PANCYTOPENIA SNOMED Code(s): 053329022 (3) Small cell lung cancer Current Visit: Yes Status: Acute Priority: High Code(s): C34.90 - MALIGNANT NEOPLASM OF UNSP PART OF UNSP BRONCHUS OR LUNG SNOMED Code(s): 647155418 (4) Weakness Current Visit: Yes Status: Acute Code(s): R53.1 - WEAKNESS SNOMED Code(s): 97202340 Plan: Assessment and recommendations: Limited Stage Small Cell Lung Cancer: - Status Post cycle one Carbo/INTERNET MANAGER-16 (04/30-05/02) with Neulasta - On Hold for acute issues below Acute Right Lower Extremity DVT: - Continue Arixtra - IVC filter today UTI/Bacteremia: - BC negative at 72 hours - Continued on IV antibiotics Thrombocytopenia: - Improving - Monitor daily - Improving with treatment of underlying infection. - Heparin antibodies not detected at this time, can switch to DOAC po at discharge
[2020-05-14] MEDS: TAMSULOSIN 0.4 MG CAP.ER.24H PO SCH (20:23)
[2020-05-14] MEDS: FONDAPARINUX 2.5 MG/0.5 ML SYRINGE SQ SCH (20:25)
[2020-05-14 20:58] LABS: Glucose,Whole Blood 299 mg/dL (75-99)
[2020-05-15] MEDS: PIPERACILLIN-TAZOBACTAM 3.375 GM in SODIUM CHLORIDE 0.9% 100 ML IVPB SCH ×3 (04:53→20:59)
[2020-05-15] MEDS: DILTIAZEM 125 MG in SODIUM CHLORIDE 0.9% 100 ML IV SCH (05:49)
[2020-05-15 06:05] LABS: Glucose,Whole Blood 228 mg/dL (75-99)
[2020-05-15] MEDS: INSULIN ASPART (NovoLOG) 100 UNIT/ML VIAL SQ SCH ×4 (06:25→20:58)
[2020-05-15] MEDS: MAG HYDROX/AL HYDROX/SIMETH 30 ML, LIDOCAINE VISCOUS 30 ML, diphenhydrAMINE ELIXIR 75 M... PO SCH ×12 (08:00→21:00)
[2020-05-15] MEDS: METOPROLOL TARTRATE 50 MG TAB PO SCH ×2 (08:00→20:59)
[2020-05-15] MEDS: NYSTATIN 100,000 UNIT/ML SUSP 500,000 UNIT/5 ML CUP PO SCH ×4 (08:00→21:00)
[2020-05-15] MEDS: SODIUM CHLORIDE 0.9% 1,000 ML IV SCH (08:01)
[2020-05-15 08:06] LABS: HCT 30.2 % (39.0-53.0); HGB 9.1 gm/dL (13.0-17.5); Hypochromasia Marked; MCH 31.8 pg (25.0-35.0); Macrocytosis Moderate; Platelet Count 117 k/uL (150-450); RBC 2.85 m/uL (4.30-5.90); RDW 14.7 % (11.5-15.5)
[2020-05-15 08:15] LABS: Albumin 2.1 g/dL (3.5-5.0); Calcium 7.7 mg/dL (8.4-10.2); Total Bilirubin 0.4 mg/dL (0.2-1.3); Total Protein 4.5 g/dL (6.3-8.2)
[2020-05-15 08:26] LABS: WBC 39.4 k/uL (3.8-10.6)
[2020-05-15] MEDS ORDERED: SPIRONOLACTONE 25 MG TAB PO SCH (09:00)
[2020-05-15] MEDS ORDERED: IV FLUID CONTINUATION 1,000 ML IV ONE (10:00)
[2020-05-15] MEDS ORDERED: LIDOCAINE 1% INJ 10MG/ML (20 ML MDV) SQ ONE (10:05)
--- NOTE | 2020-05-15 10:26 | P.OP ---
Date of Procedure: 05/15/20 Preoperative Diagnosis: Pulmonary embolus, right lower extremity DVT, metastatic small cell lung CA Postoperative Diagnosis: Same Procedure(s) Performed: IVC filter placement via left ultrasound guided femoral access, IVC venogram Anesthesia: local Surgeon: Vel Selby Estimated Blood Loss (ml): 5 Pathology: none sent Condition: stable Disposition: floor Indications for Procedure: 64-year-old gentleman with history of metastatic small cell lung cancer and recent acute DVT and bilateral PE with high risk for recurrence and poor candidate for oral anticoagulation presents today for IVC filter placement. 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 He presents today for such procedure. Description of Procedure: After written and informed consent was obtained the patient all risks benefits and competitions were described the patient is brought to the Knotting Machine Operator laid in supine position. The area of the groins were prepped and draped in usual sterile fashion. Local anesthetic was utilized to infuse over the left common femoral vein and utilizing ultrasound guidance the vein was visualized under be patent without any thrombus and was cannulated with a multipurpose needle under direct visualization. A guidewire was placed. 5-Malian sheath was then placed and iliofemoral venogram was obtained demonstrating good intra-luminal access without any evidence of thrombus. A and 035 Glidewire was then placed into the IVC and followed with the Cook to rule out deployment sheath. IVC venogram was then obtained demonstrating good visualization of the renal veins. The Tulip IVC filter was then deployed in normal fashion below the renal veins at approximately the L2-L3 vertebra level. Final venogram was obtained demonstrate good approximation of the filter. All guidewires and catheters were then removed the sheath was removed and pressure was held for hemostasis. The patient all procedure well and was sent back to his room for recovery.
[2020-05-15 11:13] LABS: Band Neutrophils % 6 %; Lymphocytes # (M) 1.18 k/uL (1.0-4.8); Metamyelocytes # (M) 1.58 k/uL (0); Metamyelocytes % 4 %; Monocytes # (M) 1.18 k/uL (0-1.0); Myelocytes # (M) 3.94 k/uL (0); Myelocytes % 10 %; Neutrophils % (M) 73 %
[2020-05-15 11:14] LABS: Blast Cells # (M) 0.79 k/uL (0); Nucleated Red Blood Cells 0 /100 WBC (0-0); Poikilocytosis (M) Present; Total Cells Counted 200; Toxic Granulation Present
--- NOTE | 2020-05-15 12:09 | IR ---
Fluoroscopy HISTORY: Filter placement 1.1 minutes fluoroscopy time supplied to the referring clinician. 50 intraoperative C-arm images doc ument the procedure. See dictated report from vascular surgery.
[2020-05-15 12:20] LABS: Glucose,Whole Blood 224 mg/dL (75-99)
--- NOTE | 2020-05-15 13:55 | P.PN ---
Subjective Progress Note Date: 05/15/20 this is a 64-year-old gentleman with recent diagnosis of small cell lung cancer who is currently on a comminution of chemotherapy. Patient initially presented to the hospital with symptoms of weakness, he had an outpatient urinalysis and urine culture that was done prior to coming to the hospital which was positive for Klebsiella. His blood cultures are showing gram-negative bacillus. Patient was seen and examined on the telemetry unit this morning, awake and alert, in no acute distress. He continues to be very very weak according to the patient.blood pressure 118/70 with a heart rate in the 90s, 99% on 5 L of oxygen. white blood cell count 39.4, hemoglobin 9.1, platelet count 117. Sodium 139, potassium 5.0, BUN 40, creatinine 1.3.patient did receive 2 units of platelets last Thursday and last Thursday. Objective - Vital Signs Vital signs: Vital Signs Temp 97.9 F 05/15/20 12:00 Pulse 114 H 05/15/20 12:00 Resp 20 05/15/20 12:00 BP 118/76 05/15/20 12:00 Pulse Ox 99 05/15/20 12:00 Intake & Output 05/14/20 05/15/20 05/15/20 18:59 06:59 18:59 Intake Total 200 92.167 20 Output Total 401 Balance 200 -308.833 20 Weight 95.5 kg 95 kg Intake: IV 20 Intake, IV Titration 92.167 Amount Diltiazem 125 mg In 92.167 Sodium Chloride 0.9% 100 ml @ 5 MG/HR 5 mls/hr IV .Q24H [facility] Rx#:[id number] Oral 200 Output: Urine 400 Stool 1 Other: Voiding Method Indwelling Catheter Indwelling Catheter Indwelling Catheter # Bowel Movements 2 - Exam GENERAL EXAM: Alert, very pleasant, 64-year-old white male, appears to be generally weak, he is on 5 L of oxygen [id number]%, resting in bed, appears to be comfortable in no apparent distress. HEAD: Normocephalic/atraumatic. EYES: Normal reaction of pupils, equal size. Conjunctiva pink, sclera white. NOSE: Clear with pink turbinates. THROAT: No erythema or exudates. NECK: No masses, no JVD, no thyroid enlargement, no adenopathy. CHEST: No chest wall deformity. Symmetrical expansion. LUNGS: Equal air entry with no crackles, wheeze, rhonchi or dullness. CVS: Irregular rate and rhythm, normal S1 and S2, no gallops, no murmurs, no rubs ABDOMEN: Soft, nontender. No hepatosplenomegaly, normal bowel sounds, no guarding or rigidity. EXTREMITIES: No clubbing, 1+ lower extremity edema, no cyanosis, 2+ pulses and upper and lower extremities. MUSCULOSKELETAL: Muscle strength and tone normal. SPINE: No scoliosis or deformity SKIN: No rashes CENTRAL NERVOUS SYSTEM: Alert and oriented -3. No focal deficits, tone is normal in all 4 extremities. PSYCHIATRIC: Alert and oriented -3. Appropriate affect. Intact judgment and i nsight. - Labs CBC & Chem 7: 05/15/20 06:56 05/15/20 06:56 Labs: Abnormal Lab Results - Last 24 Hours (Table) 05/14/20 05/14/20 05/14/20 Range/Units 14:27 16:33 20:56 WBC (3.8-10.6) k/uL RBC (4.30-5.90) m/uL Hgb (13.0-17.5) gm/dL Hct (39.0-53.0) % MCV (80.0-100.0) fL MCHC (31.0-37.0) g/dL Plt Count (150-450) k/uL Blast Cells % % Neutrophils # (Manual) (1.3-7.7) k/uL Monocytes # (Manual) (0-1.0) k/uL Metamyelocytes # (Man) (0) k/uL Myelocytes # (Manual) (0) k/uL Blast Cells # (Man) (0) k/uL Potassium 5.7 H (3.5-5.1) mmol/L Chloride (98-107) mmol/L Carbon Dioxide (22-30) mmol/L BUN (9-20) mg/dL Creatinine (0.66-1.25) mg/dL Glucose (74-99) mg/dL POC Glucose (mg/dL) 236 H 299 H (75-99) mg/dL Calcium (8.4-10.2) mg/dL ALT (4-49) U/L Alkaline Phosphatase (38-126) U/L Total Protein (6.3-8.2) g/dL Albumin (3.5-5.0) g/dL 05/15/20 05/15/20 05/15/20 Range/Units 06:03 06:56 06:56 WBC 39.4 H (3.8-10.6) k/uL RBC 2.85 L (4.30-5.90) m/uL Hgb 9.1 L (13.0-17.5) gm/dL Hct 30.2 L (39.0-53.0) % MCV 106.0 H (80.0-100.0) fL MCHC 30.0 L (31.0-37.0) g/dL Plt Count 117 L (150-450) k/uL Blast Cells % 2 H* % Neutrophils # (Manual) 31.10 H (1.3-7.7) k/uL Monocytes # (Manual) 1.18 H (0-1.0) k/uL Metamyelocytes # (Man) 1.58 H (0) k/uL Myelocytes # (Manual) 3.94 H (0) k/uL Blast Cells # (Man) 0.79 H (0) k/uL Potassium (3.5-5.1) mmol/L Chloride 113 H (98-107) mmol/L Carbon Dioxide 20 L (22-30) mmol/L BUN 40 H (9-20) mg/dL Creatinine 1.32 H (0.66-1.25) mg/dL Glucose 216 H (74-99) mg/dL POC Glucose (mg/dL) 228 H (75-99) mg/dL Calcium 7.7 L (8.4-10.2) mg/dL ALT 56 H (4-49) U/L Alkaline Phosphatase 219 H (38-126) U/L Total Protein 4.5 L (6.3-8.2) g/dL Albumin 2.1 L (3.5-5.0) g/dL 05/15/20 Range/Units 12:19 WBC (3.8-10.6) k/uL RBC (4.30-5.90) m/uL Hgb (13.0-17.5) gm/dL Hct (39.0-53.0) % MCV (80.0-100.0) fL MCHC (31.0-37.0) g/dL Plt Count (150-450) k/uL Blast Cells % % Neutrophils # (Manual) (1.3-7.7) k/uL Monocytes # (Manual) (0-1.0) k/uL Metamyelocytes # (Man) (0) k/uL Myelocytes # (Manual) (0) k/uL Blast Cells # (Man) (0) k/uL Potassium (3.5-5.1) mmol/L Chloride (98-107) mmol/L Carbon Dioxide (22-30) mmol/L BUN (9-20) mg/dL Creatinine (0.66-1.25) mg/dL Glucose (74-99) mg/dL POC Glucose (mg/dL) 224 H (75-99) mg/dL Calcium (8.4-10.2) mg/dL ALT (4-49) U/L Alkaline Phosphatase (38-126) U/L Total Protein (6.3-8.2) g/dL Albumin (3.5-5.0) g/dL Microbiology - Last 24 Hours (Table) 05/11/20 12:02 Blood Culture - Preliminary Blood No Growth after 72 hours Assessment and Plan Plan: assessment and plan #1 septic shock, secondary to underlying Klebsiella pneumonia UTI, and pseudomonas aeruginosa in the blood #2 metastatic small cell lung cancer #3 positive DVT of the right lower extremity #4 obstructive sleep apnea #5 hypertension #6 hyperlipidemia #7 pancytopenia secondary to chemotherapy #8paroxysmal atrial fibrillation Plan Patient continues to be in atrial fibrillation this morning, heart rate in the 110-118 range. We'll increase the dose of beta suly, if the heart rate comes under better control, we will discontinue the Cardizem. DNP note has been reviewed, I agree with a documented findings and plan of care. Patient was seen and examined.
--- NOTE | 2020-05-15 14:38 | P.PN ---
Subjective Progress Note Date: 05/15/20 Principal diagnosis: Sepsis Now Status Post IVC filter today Objective - Vital Signs Vital signs: Vital Signs Temp 97.9 F 05/15/20 12:00 Pulse 114 H 05/15/20 12:00 Resp 20 05/15/20 12:00 BP 118/76 05/15/20 12:00 Pulse Ox 99 05/15/20 12:00 Intake & Output 05/14/20 05/15/20 05/15/20 18:59 06:59 18:59 Intake Total 200 92.167 20 Output Total 401 Balance 200 -308.833 20 Weight 95.5 kg 95 kg Intake: IV 20 Intake, IV Titration 92.167 Amount Diltiazem 125 mg In 92.167 Sodium Chloride 0.9% 100 ml @ 5 MG/HR 5 mls/hr IV .Q24H [facility] Rx#:[id number] Oral 200 Output: Urine 400 Stool 1 Other: Voiding Method Indwelling Catheter Indwelling Catheter Indwelling Catheter # Bowel Movements 2 - Exam General: Lethargic weak, comfortable appearance. Head: Normocephalic, atraumatic. Eyes: Symmetric. Pupils equal round. Ears: Symmetric. [place] Mouth: Dry Neck: Supple. Cardiac: Tachy Lungs: Diminished Abdomen: Soft active nontender. Extremities: Atrophy to muscular tone. + BLE edema Neurological: Mental status: cooperative, pleasant. Cranial nerves: Symmetric facial Motor: does not elevate them or move legs. Mobility: Wheelchair at baseline - Labs CBC & Chem 7: 05/15/20 06:56 05/15/20 06:56 Labs: Abnormal Lab Results - Last 24 Hours (Table) 05/14/20 05/14/20 05/14/20 Range/Units 14:27 16:33 20:56 WBC (3.8-10.6) k/uL RBC (4.30-5.90) m/uL Hgb (13.0-17.5) gm/dL Hct (39.0-53.0) % MCV (80.0-100.0) fL MCHC (31.0-37.0) g/dL Plt Count (150-450) k/uL Blast Cells % % Neutrophils # (Manual) (1.3-7.7) k/uL Monocytes # (Manual) (0-1.0) k/uL Metamyelocytes # (Man) (0) k/uL Myelocytes # (Manual) (0) k/uL Blast Cells # (Man) (0) k/uL Potassium 5.7 H (3.5-5.1) mmol/L Chloride (98-107) mmol/L Carbon Dioxide (22-30) mmol/L BUN (9-20) mg/dL Creatinine (0.66-1.25) mg/dL Glucose (74-99) mg/dL POC Glucose (mg/dL) 236 H 299 H (75-99) mg/dL Calcium (8.4-10.2) mg/dL ALT (4-49) U/L Alkaline Phosphatase (38-126) U/L Total Protein (6.3-8.2) g/dL Albumin (3.5-5.0) g/dL 05/15/20 05/15/20 05/15/20 Range/Units 06:03 06:56 06:56 WBC 39.4 H (3.8-10.6) k/uL RBC 2.85 L (4.30-5.90) m/uL Hgb 9.1 L (13.0-17.5) gm/dL Hct 30.2 L (39.0-53.0) % MCV 106.0 H (80.0-100.0) fL MCHC 30.0 L (31.0-37.0) g/dL Plt Count 117 L (150-450) k/uL Blast Cells % 2 H* % Neutrophils # (Manual) 31.10 H (1.3-7.7) k/uL Monocytes # (Manual) 1.18 H (0-1.0) k/uL Metamyelocytes # (Man) 1.58 H (0) k/uL Myelocytes # (Manual) 3.94 H (0) k/uL Blast Cells # (Man) 0.79 H (0) k/uL Potassium (3.5-5.1) mmol/L Chloride 113 H (98-107) mmol/L Carbon Dioxide 20 L (22-30) mmol/L BUN 40 H (9-20) mg/dL Creatinine 1.32 H (0.66-1.25) mg/dL Glucose 216 H (74-99) mg/dL POC Glucose (mg/dL) 228 H (75-99) mg/dL Calcium 7.7 L (8.4-10.2) mg/dL ALT 56 H (4-49) U/L Alkaline Phosphatase 219 H (38-126) U/L Total Protein 4.5 L (6.3-8.2) g/dL Albumin 2.1 L (3.5-5.0) g/dL 05/15/20 Range/Units 12:19 WBC (3.8-10.6) k/uL RBC (4.30-5.90) m/uL Hgb (13.0-17.5) gm/dL Hct (39.0-53.0) % MCV (80.0-100.0) fL MCHC (31.0-37.0) g/dL Plt Count (150-450) k/uL Blast Cells % % Neutrophils # (Manual) (1.3-7.7) k/uL Monocytes # (Manual) (0-1.0) k/uL Metamyelocytes # (Man) (0) k/uL Myelocytes # (Manual) (0) k/uL Blast Cells # (Man) (0) k/uL Potassium (3.5-5.1) mmol/L Chloride (98-107) mmol/L Carbon Dioxide (22-30) mmol/L BUN (9-20) mg/dL Creatinine (0.66-1.25) mg/dL Glucose (74-99) mg/dL POC Glucose (mg/dL) 224 H (75-99) mg/dL Calcium (8.4-10.2) mg/dL ALT (4-49) U/L Alkaline Phosphatase (38-126) U/L Total Protein (6.3-8.2) g/dL Albumin (3.5-5.0) g/dL Microbiology - Last 24 Hours (Table) 05/11/20 12:02 Blood Culture - Preliminary Blood No Growth after 96 hours Assessment and Plan (1) Right leg DVT Current Visit: Yes Status: Acute Code(s): I82.401 - ACUTE EMBOLISM AND THOMBOS UNSP DEEP VEINS OF R LOW EXTREM SNOMED Code(s): 690565755 (2) Pancytopenia Current Visit: Yes Status: Acute Code(s): D61.818 - OTHER PANCYTOPENIA SNOMED Code(s): 825969172 (3) Small cell lung cancer Current Visit: Yes Status: Acute Priority: High Code(s): C34.90 - MALIGNANT NEOPLASM OF UNSP PART OF UNSP BRONCHUS OR LUNG SNOMED Code(s): 852505921 (4) Weakness Current Visit: Yes Status: Acute Code(s): R53.1 - WEAKNESS SNOMED Code(s): 27372857 Plan: Assessment and recommendations: Limited Stage Small Cell Lung Cancer: - Status Post cycle one Carbo/CHEMIST INSTRUMENTATION-16 (04/30-05/02) with Neulasta - On Hold for acute issues below Acute Right Lower Extremity DVT: - Continue Arixtra - Status Post IVC filter today UTI/Bacteremia: - BC negative at 72 hours - Continued on IV antibiotics Thrombocytopenia: Stable 117K - Improving - Monitor daily - Improving with treatment of underlying infection. - Heparin antibodies not detected at this time, can switch to DOAC po at disc xiomara Physician Attest: I have completed the full history and physical and agree with above dictation, dictated as a scribe
--- NOTE | 2020-05-15 16:22 | P.PN ---
Subjective Progress Note Date: 05/15/20 Principal diagnosis: Sepsis secondary to underlying urinary tract infection This is a 64-year-old male patient with a recent diagnosis of small cell lung cancer who is currently on a combination of chemotherapy including carboplatin and SIEBEL SOLUTION ARCHITECT-16. Diagnosis established on 04/11/2020 and the patient underwent a navigational bronchoscopy of the left upper lobe mass that confirmed the diagnosis. PET scan revealed suspicious uptake in the right supra hilar area and the patient has a right suprahilar mass, right hilar mass, pretracheal lymph nodes, left adrenal gland showed a mass with increased uptake in addition to uptake within the right adrenal gland. The patient was also diagnosed having generalized muscle weakness and based on further investigation was done [facility] the patient was possibly suspected to have a paraneoplastic syndrome, Eaton Lambert, as the patient was very weak and quite debilitated with his underlying lung cancer and he was having significant amount of muscle weakness. The patient came in yesterday to the hospital with further weakness, generalized body weakness post systemic chemotherapy and received his first cycle of systemic chemotherapy around 5 days ago. He had an outpatient urinalysis and urine culture that was done on 05/07/2020 and was positive for Klebsiella pneumoniae. His blood cultures also showing gram-negative bacillus. The patient had a white cell count of 0.8 at time of admission and this morning his white cell count is at 2.1 with an absolute neutrophil count of 1.4K. The patient was started on IV cefepime. Earlier this morning he was having some worsening shortness of breath. He was felt to be in fluid overload and he was given a dose of Lasix 40 mg and following that he producing adequate amount of urine output. He has increased lower extremity edema and Doppler of the lower extremity be obtained. CAT scan of the chest that was repeated in the emergency department was consistent with small cell lung cancer, metastatic. The patient is seen today 05/12/2020 in follow-up on the selective care unit. He is currently sitting up in bed. Awake and alert in no acute distress. Maintaining O2 saturations in the 90s on 2 L/m per nasal cannula. She's afebrile. He's been somewhat hypotensive. Blood pressure 88/56 this morning. He did receive Coreg. White count 4.7. Hemoglobin 8.6. Platelet count 44,000. Blast cells 2. Glipizide 0.19. Sodium 136. Potassium 3.4. Bicarb 20. Crea tinine 0.87. Urine culture positive for gram-negative bacilli, sputum culture positive for pseudomonas species. Final results pending. Dopplers positive for right lower extremity DVT. He is currently on Zosyn. Continued on IV diuretics, Arixtra, Zarxio. 0.9 normal saline at 100 ML's per hour. Patient is seen today in 05/13/2020 in follow-up on the selective care unit. He is currently resting comfortably in bed. A bit more weak and fatigued today compared to yesterday. He did have ongoing issues with atrial fibrillation with rapid ventricular response. He is on amiodarone at 0.5 mg per minute. Anticoagulated with Arixtra. 0.9 normal saline at 100 MLS per hour. He is on 4 L/m per nasal cannula to maintain O2 saturations in the 90s. White count 15.3. Hemoglobin 9.1. Platelet count 69,000. Sodium 137. Potassium 3.1. Creatinine 1.08. TSH 0.015. Free T4 1 0.77. He is status post 2 units of platelets this admission thus far. He remains on Zosyn. On 05/14/2020 patient seen in follow-up on selective care unit. Patient is awake and alert, in no acute distress, 5 L of oxygen pulse ox of 96%, does get short of breath with exertion, but has been afebrile. He remains very weak, but breathing comfortably at rest, no hemoptysis, no chest pain, he is on antibiotics in the form of Zosyn for Klebsiella pneumonia in the urine, and pseudomonas aeruginosa in the blood cultures, complains of nausea, but no vomiting, no abdominal pain. Continues to be in A. fib with RVR, and he is being started on Cardizem infusion per cardiology, platelet count is 110, patient is on Arixtra per hematology. He also received 2 units of platelets last Thursday and last Thursday. White blood cell count is significantly decreased on today's labs, up to 37.1, hemoglobin is 9.5, sodium is 139, potassium is 5.7, chloride is 1:15, CO2 is 18, BUN is 38 and creatinine is 1.24. He is receiving IV hydration with 0.9 normal saline at a rate of 100 ML per hour, does have some generalized swelling. He's had no nausea or vomiting, no altered mentation, he is answering questions appropriately. His follow-up blood culture has shown no growth at the 72 hour dennis. On 05/15/2020 patient seen in follow-up on selective care unit, he is resting in bed, he is weak, but no acute distress, breathing comfortably, he does have a weak cough, nonproductive, no altered mentation, his is at the bedside, she is assisting him with his lunch. He denies any chest pain, no hemoptysis, vital signs are stable, he continues on Zosyn for Klebsiella pneumonia in the urine, and pseudomonas aeruginosa and the blood cultures. He is currently on 5 L of oxygen pulse ox of 99%, his had no fevers in the last 24 hours. Follow blood culture has shown no growth at the 96 hour dennis. Patient had a IVC filter placed today by vascular surgery. Today's labs have been reviewed, white blood cell count is 39.4, hemoglobin is 9.1, sodium is 139, potassium is 5.0, chloride is 113, CO2 is 20, BUN is 40 and creatinine is 1.32. Patient has had no nausea vomiting or diarrhea. Remains on Cardizem drip at 5 mg per hour for A. fib with RVR rate control, cardiology is following. Hematology/oncology is following, patient remains on Arixtra for anticoagulation. Objective - Vital Signs Vital signs: Vital Signs Temp 97.9 F 05/15/20 12:00 Pulse 114 H 05/15/20 12:00 Resp 20 05/15/20 12:00 BP 118/76 05/15/20 12:00 Pulse Ox 99 05/15/20 12:00 Intake & Output 05/14/20 05/15/20 05/15/20 18:59 06:59 18:59 Intake Total 200 92.167 260 Output Total 401 Balance 200 -308.833 260 Weight 95.5 kg 95 kg Intake: IV 20 Intake, IV Titration 92.167 Amount Diltiazem 125 mg In 92.167 Sodium Chloride 0.9% 100 ml @ 5 MG/HR 5 mls/hr IV .Q24H [facility] Rx#:[id number] Oral 200 240 Output: Urine 400 Stool 1 Other: Voiding Method Indwelling Catheter Indwelling Catheter Indwelling Catheter # Voids 0 # Bowel Movements 2 0 - Exam GENERAL EXAM: Alert, very pleasant, 64-year-old white male, appears to be generally weak, he is on 5 L of oxygen satting 95-97%, resting in bed, appears to be comfortable in no apparent distress. HEAD: Normocephalic/atraumatic. EYES: Normal reaction of pupils, equal size. Conjunctiva pink, sclera white. NOSE: Clear with pink turbinates. THROAT: No erythema or exudates. NECK: No masses, no JVD, no thyroid enlargement, no adenopathy. CHEST: No chest wall deformity. Symmetrical expansion. LUNGS: Equal air entry with no crackles, wheeze, rhonchi or dullness. CVS: Irregular rate and rhythm, normal S1 and S2, no gallops, no murmurs, no rubs ABDOMEN: Soft, nontender. No hepatosplenomegaly, normal bowel sounds, no guarding or rigidity. EXTREMITIES: No clubbing, 1+ lower extremity edema, no cyanosis, 2+ pulses and upper and lower extremities. MUSCULOSKELETAL: Muscle strength and tone normal. SPINE: No scoliosis or deformity SKIN: No rashes CENTRAL NERVOUS SYSTEM: Alert and oriented -3. No focal deficits, tone is normal in all 4 extremities. PSYCHIATRIC: Alert and oriented -3. Appropriate affect. Intact judgment and insight. - Labs CBC & Chem 7: 05/15/20 06:56 05/15/20 06:56 Labs: Abnormal Lab Results - Last 24 Hours (Table) 05/14/20 05/14/20 05/15/20 Range/Units 16:33 20:56 06:03 WBC (3.8-10.6) k/uL RBC (4.30-5.90) m/uL Hgb (13.0-17.5) gm/dL Hct (39.0-53.0) % MCV (80.0-100.0) fL MCHC (31.0-37.0) g/dL Plt Count (150-450) k/uL Blast Cells % % Neutrophils # (Manual) (1.3-7.7) k/uL Monocytes # (Manual) (0-1.0) k/uL Metamyelocytes # (Man) (0) k/uL Myelocytes # (Manual) (0) k/uL Blast Cells # (Man) (0) k/uL Chloride (98-107) mmol/L Carbon Dioxide (22-30) mmol/L BUN (9-20) mg/dL Creatinine (0.66-1.25) mg/dL Glucose (74-99) mg/dL POC Glucose (mg/dL) 236 H 299 H 228 H (75-99) mg/dL Calcium (8.4-10.2) mg/dL ALT (4-49) U/L Alkaline Phosphatase (38-126) U/L Total Protein (6.3-8.2) g/dL Albumin (3.5-5.0) g/dL 05/15/20 05/15/20 05/15/20 Range/Units 06:56 06:56 12:19 WBC 39.4 H (3.8-10.6) k/uL RBC 2.85 L (4.30-5.90) m/uL Hgb 9.1 L (13.0-17.5) gm/dL Hct 30.2 L (39.0-53.0) % MCV 106.0 H (80.0-100.0) fL MCHC 30.0 L (31.0-37.0) g/dL Plt Count 117 L (150-450) k/uL Blast Cells % 2 H* % Neutrophils # (Manual) 31.10 H (1.3-7.7) k/uL Monocytes # (Manual) 1.18 H (0-1.0) k/uL Metamyelocytes # (Man) 1.58 H (0) k/uL Myelocytes # (Manual) 3.94 H (0) k/uL Blast Cells # (Man) 0.79 H (0) k/uL Chloride 113 H (98-107) mmol/L Carbon Dioxide 20 L (22-30) mmol/L BUN 40 H (9-20) mg/dL Creatinine 1.32 H (0.66-1.25) mg/dL Glucose 216 H (74-99) mg/dL POC Glucose (mg/dL) 224 H (75-99) mg/dL Calcium 7.7 L (8.4-10.2) mg/dL ALT 56 H (4-49) U/L Alkaline Phosphatase 219 H (38-126) U/L Total Protein 4.5 L (6.3-8.2) g/dL Albumin 2.1 L (3.5-5.0) g/dL Microbiology - Last 24 Hours (Table) 05/11/20 12:02 Blood Culture - Preliminary Blood No Growth after 96 hours Assessment and Plan Plan: Assessment: 1 septic shock likely secondary to underlying Klebsiella pneumonia UTI and pseudomonas aeruginosa in the blood 2 metastatic small cell lung cancer received first session of systemic chemotherapy earlier this week with a combination of carboplatinum and SIEBEL SOLUTION ARCHITECT-16 3 Eaton-Lambert syndrome, 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 fib with RVR 11 hyperkalemia, Aldactone and potassium supplements have been placed on hold Plan: Continue current antibiotic coverage, maintain aspiration precautions, and supportive treatment, follow blood cultures have been negative, anticoagulation per hematology. Weaning FiO2, encourage deep breathing and coughing, heart rate control medications per cardiology. Overall prognosis is very guarded. Follow- up CBC and BMP in the morning I performed a history & physical examination of the patient and discussed their management with my nurse practitioner, Leandra Cruz. I reviewed the nurse practitioner's note and agree with the documented findings and plan of care. Lung sounds are positive for diminished breath sounds The findings and the impression was discussed with the patient. I attest to the documentation by the nurse practitioner. Time with Patient: Less than 30
[2020-05-15 17:22] LABS: Glucose,Whole Blood 246 mg/dL (75-99)
[2020-05-15 20:46] LABS: Glucose,Whole Blood 256 mg/dL (75-99)
[2020-05-15] MEDS: FONDAPARINUX 2.5 MG/0.5 ML SYRINGE SQ SCH (20:58)
[2020-05-15] MEDS: TAMSULOSIN 0.4 MG CAP.ER.24H PO SCH (20:59)
[2020-05-15] MEDS: HYDROcodone/APAP 5-325MG 1 EACH TAB PO PRN (20:59)
[2020-05-15] MEDS ORDERED: FUROSEMIDE 10 MG/ML 4 ML VIAL IV STA (22:48)
--- NOTE | 2020-05-15 22:51 | P.PN ---
Subjective Progress Note Date: 05/15/20 Principal diagnosis: sepsis Eitan Quezada is a 64 yo M with history of recently diagnosed small cell lung cancer with related lambert-eaton syndrome who presented to the hospital with worsening weakness, malaise and shortness of breath. He is approx 7 days s/p his first cycle of carboplatin and etoposide and feels his symptoms have worsened since that time. He has continued to experience severe weakness over the past few months. On presentation he was tachycardic and febrile, WBC 0.8k, Hgb 10.5, plt 36. CTA performed showed no PE and interval enlargement of his hilar mass to 6 cm. 05/15: He continues to complain of orthopnea today, reports minimal cough and denies shortness of breath while upright. He continues on zosyn for pseudomonas bacteremia and remains on arixtra for DVT. Pt for IVC filter with vascular surgery today Objective - Vital Signs Vital signs: Vital Signs Temp 97.7 F 05/15/20 16:56 Pulse 134 H 05/15/20 20:44 Resp 17 05/15/20 20:28 BP 142/87 05/15/20 20:28 Pulse Ox 98 05/15/20 20:28 Intake & Output 05/15/20 05/15/20 05/16/20 06:59 18:59 06:59 Intake Total 92.167 260 Output Total 401 400 Balance -308.833 260 -400 Weight 95 kg Intake: IV 20 Intake, IV Titration 92.167 Amount Diltiazem 125 mg In 92.167 Sodium Chloride 0.9% 100 ml @ 5 MG/HR 5 mls/hr IV .Q24H [facility] Rx#:[id number] Oral 240 Output: Urine 400 400 Stool 1 Other: Voiding Method Indwelling Catheter Indwelling Catheter Indwelling Catheter # Voids 0 # Bowel Movements 0 - Exam General: well nourished, well developed, NAD. Vitals reviewed Lungs: normal respiratory effort, no wheezes. Crackles at bases CV: Irregular. no murmur. 2+ edema terence Abdomen: soft, nondistended, no organomegaly Skin: warm and dry. - Labs CBC & Chem 7: 05/15/20 06:56 05/15/20 06:56 Labs: Abnormal Lab Results - Last 24 Hours (Table) 05/15/20 05/15/20 05/15/20 Range/Units 06:03 06:56 06:56 WBC 39.4 H (3.8-10.6) k/uL RBC 2.85 L (4.30-5.90) m/uL Hgb 9.1 L (13.0-17.5) gm/dL Hct 30.2 L (39.0-53.0) % MCV 106.0 H (80.0-100.0) fL MCHC 30.0 L (31.0-37.0) g/dL Plt Count 117 L (150-450) k/uL Blast Cells % 2 H* % Neutrophils # (Manual) 31.10 H (1.3-7.7) k/uL Monocytes # (Manual) 1.18 H (0-1.0) k/uL Metamyelocytes # (Man) 1.58 H (0) k/uL Myelocytes # (Manual) 3.94 H (0) k/uL Blast Cells # (Man) 0.79 H (0) k/uL Chloride 113 H (98-107) mmol/L Carbon Dioxide 20 L (22-30) mmol/L BUN 40 H (9-20) mg/dL Creatinine 1.32 H (0.66-1.25) mg/dL Glucose 216 H (74-99) mg/dL POC Glucose (mg/dL) 228 H (75-99) mg/dL Calcium 7.7 L (8.4-10.2) mg/dL ALT 56 H (4-49) U/L Alkaline Phosphatase 219 H (38-126) U/L Total Protein 4.5 L (6.3-8.2) g/dL Albumin 2.1 L (3.5-5.0) g/dL 05/15/20 05/15/20 05/15/20 Range/Units 12:19 17:21 20:45 WBC (3.8-10.6) k/uL RBC (4.30-5.90) m/uL Hgb (13.0-17.5) gm/dL Hct (39.0-53.0) % MCV (80.0-100.0) fL MCHC (31.0-37.0) g/dL Plt Count (150-450) k/uL Blast Cells % % Neutrophils # (Manual) (1.3-7.7) k/uL Monocytes # (Manual) (0-1.0) k/uL Metamyelocytes # (Man) (0) k/uL Myelocytes # (Manual) (0) k/uL Blast Cells # (Man) (0) k/uL Chloride (98-107) mmol/L Carbon Dioxide (22-30) mmol/L BUN (9-20) mg/dL Creatinine (0.66-1.25) mg/dL Glucose (74-99) mg/dL POC Glucose (mg/dL) 224 H 246 H 256 H (75-99) mg/dL Calcium (8.4-10.2) mg/dL ALT (4-49) U/L Alkaline Phosphatase (38-126) U/L Total Protein (6.3-8.2) g/dL Albumin (3.5-5.0) g/dL Microbiology - Last 24 Hours (Table) 05/11/20 12:02 Blood Culture - Preliminary Blood No Growth after 96 hours Assessment and Plan (1) Severe sepsis with acute organ dysfunction due to Pseudomonas species Current Visit: Yes Status: Acute Code(s): A41.52 - SEPSIS DUE TO PSEUDOMONAS; R65.20 - SEVERE SEPSIS WITHOUT SEPTIC SHOCK SNOMED Code(s): 506857120207442 (2) Lambert-Eaton myasthenic syndrome Current Visit: Yes Status: Acute Code(s): G70.80 - LAMBERT-EATON SYNDROME, UNSPECIFIED SNOMED Code(s): 91939397 (3) Cavitary lesion of lung Current Visit: Yes Status: Acute Code(s): J98.4 - OTHER DISORDERS OF LUNG SNOMED Code(s): 708555938 (4) Chemotherapy induced neutropenia Current Visit: Yes Status: Acute Code(s): D70.1 - AGRANULOCYTOSIS SECONDARY TO CANCER CHEMOTHERAPY; T45.1X5A - ADVERSE EFFECT OF ANTINEOPLASTIC AND IMMUNOSUP DRUGS, INIT SNOMED Code(s): 514359101 (5) Pancytopenia Current Visit: Yes Status: Acute Code(s): D61.818 - OTHER PANCYTOPENIA SNOMED Code(s): 786977347 (6) Right leg DVT Current Visit: Yes Status: Acute Code(s): I82.401 - ACUTE EMBOLISM AND THOMBOS UNSP DEEP VEINS OF R LOW EXTREM SNOMED Code(s): 737372949 (7) Small cell lung cancer Current Visit: Yes Status: Acute Priority: High Code(s): C34.90 - MALIGNANT NEOPLASM OF UNSP PART OF UNSP BRONCHUS OR LUNG SNOMED Code(s): 845744512 (8) Pressure ulcer of sacral region, stage 2 Current Visit: No Status: Acute Code(s): L89.152 - PRESSURE ULCER OF SACRAL REGION, STAGE 2 SNOMED Code(s): 976864666 (9) Type 2 diabetes mellitus Current Visit: No Status: Acute Code(s): E11.9 - TYPE 2 DIABETES MELLITUS WITHOUT COMPLICATIONS SNOMED Code(s): 79604832 Plan: Continue with current medications and interventions. Continue zosyn for sepsis. Cardiology following, metoprolol started for a fib. Pt for IVC filter today, continue arixtra. Will repeat CXR and order IV lasix for fluid overload with continued orthopnea and dyspnea.
--- NOTE | 2020-05-15 23:06 | XR ---
EXAMINATION TYPE: XR chest 1V portable DATE OF EXAM: 05/15/2020 COMPARISON: May 14, 2020 HISTORY: Short of breath TECHNIQUE: FINDINGS: There is some infiltrate and atelectasis left lung base. There is no gross heart failure. T horacic aorta is atheromatous. There are chest leads. IMPRESSION: There is a mild infiltrate and atelectasis left lung base which is the same or slightly i ncreased compared to yesterday. No obvious heart failure.
[2020-05-16] MEDS: SODIUM CHLORIDE 0.9% 1,000 ML IV SCH (02:54)
[2020-05-16] MEDS: PIPERACILLIN-TAZOBACTAM 3.375 GM in SODIUM CHLORIDE 0.9% 100 ML IVPB SCH ×3 (03:46→20:44)
[2020-05-16] MEDS: DILTIAZEM 125 MG in SODIUM CHLORIDE 0.9% 100 ML IV SCH (03:46)
[2020-05-16 06:14] LABS: Glucose,Whole Blood 190 mg/dL (75-99)
[2020-05-16] MEDS: INSULIN ASPART (NovoLOG) 100 UNIT/ML VIAL SQ SCH ×4 (06:48→21:37)
[2020-05-16 07:48] LABS: HCT 29.7 % (39.0-53.0); HGB 9.3 gm/dL (13.0-17.5); Hypochromasia Moderate; MCH 32.6 pg (25.0-35.0); MCHC 31.3 g/dL (31.0-37.0); MCV 104.1 fL (80.0-100.0); Macrocytosis Slight; Mean Platelet Volume 10.3; Platelet Count 136 k/uL (150-450); RBC 2.85 m/uL (4.30-5.90); RDW 14.7 % (11.5-15.5); WBC 49.4 k/uL (3.8-10.6)
[2020-05-16 08:09] LABS: Calcium 7.6 mg/dL (8.4-10.2); Potassium 3.9 mmol/L (3.5-5.1)
[2020-05-16] MEDS: MAG HYDROX/AL HYDROX/SIMETH 30 ML, LIDOCAINE VISCOUS 30 ML, diphenhydrAMINE ELIXIR 75 M... PO SCH ×12 (09:17→20:43)
[2020-05-16] MEDS: METOPROLOL TARTRATE 50 MG TAB PO SCH ×2 (09:18→20:43)
[2020-05-16] MEDS: NYSTATIN 100,000 UNIT/ML SUSP 500,000 UNIT/5 ML CUP PO SCH ×4 (09:18→21:38)
[2020-05-16 10:50] LABS: Band Neutrophils % 6 %; Blast Cells # (M) 0.99 k/uL (0); Lymphocytes # (M) 1.98 k/uL (1.0-4.8); Metamyelocytes # (M) 1.48 k/uL (0); Metamyelocytes % 3 %; Monocytes # (M) 1.98 k/uL (0-1.0); Myelocytes # (M) 1.98 k/uL (0); Myelocytes % 4 %; Neutrophils % (M) 75 %; Nucleated Red Blood Cells 0 /100 WBC (0-0); Promyelocytes # (M) 2.47 k/uL (0); Promyelocytes % 5 %; Total Cells Counted 200
[2020-05-16 10:51] LABS: Anisocytosis (M) Present; Poikilocytosis (M) Present; Tear Drop Cells Present
--- NOTE | 2020-05-16 11:39 | P.PN ---
Subjective Progress Note Date: 05/16/20 Principal diagnosis: DVT of right lower extremity She was seen and examined at the bedside with Dr. Todd. Is status postop day #1 for IVC or placement. He denies any acute changes through the night. He denies any bleeding from his right groin. He has been afebrile through the night. Objective - Vital Signs Vital signs: Vital Signs Temp 97.5 F L 05/16/20 03:01 Pulse 105 H 05/16/20 03:01 Resp 18 05/16/20 03:01 BP 98/59 05/16/20 03:01 Pulse Ox 99 05/16/20 03:01 Intake & Output 05/15/20 05/16/20 05/16/20 18:59 06:59 18:59 Intake Total 260 109.75 Output Total 1800 Balance 260 -1690.25 Weight 95 kg Intake: IV 20 Intake, IV Titration 109.75 Amount Diltiazem 125 mg In 109.75 Sodium Chloride 0.9% 100 ml @ 5 MG/HR 5 mls/hr IV .Q24H [facility] Rx#:[id number] Oral 240 Output: Urine 1800 Uretheral (Todd) 800 Other: Voiding Method Indwelling Catheter Indwelling Catheter # Voids 0 # Bowel Movements 0 1 - Exam General appearance: The patient is alert, oriented, in no acute distress. Chronically ill appearing. HET: Head is normocephalic and atraumatic. Neck: Supple without lymphadenopathy. Trachea midline. Heart: S1 S2. Regular rate and rhythm. Lungs: Clear to auscultation. Extremities: Right and left groin without any active bleeding. Small amount of ecchymosis, no hematoma noted. Neurological: No focal deficits. Strength and sensation are grossly intact. - Labs CBC & Chem 7: 05/16/20 07:32 05/16/20 07:32 Labs: Abnormal Lab Results - Last 24 Hours (Table) 05/15/20 05/15/20 05/15/20 Range/Units 06:56 12:19 17:21 WBC 39.4 H (3.8-10.6) k/uL RBC (4.30-5.90) m/uL Hgb (13.0-17.5) gm/dL Hct (39.0-53.0) % MCV (80.0-100.0) fL Plt Count (150-450) k/uL Blast Cells % 2 H* % Neutrophils # (Manual) 31.10 H (1.3-7.7) k/uL Monocytes # (Manual) 1.18 H (0-1.0) k/uL Metamyelocytes # (Man) 1.58 H (0) k/uL Myelocytes # (Manual) 3.94 H (0) k/uL Blast Cells # (Man) 0.79 H (0) k/uL Chloride (98-107) mmol/L BUN (9-20) mg/dL Creatinine (0.66-1.25) mg/dL Glucose (74-99) mg/dL POC Glucose (mg/dL) 224 H 246 H (75-99) mg/dL Calcium (8.4-10.2) mg/dL 05/15/20 05/16/20 05/16/20 Range/Units 20:45 06:12 07:32 WBC 49.4 H (3.8-10.6) k/uL RBC 2.85 L (4.30-5.90) m/uL Hgb 9.3 L (13.0-17.5) gm/dL Hct 29.7 L (39.0-53.0) % MCV 104.1 H (80.0-100.0) fL Plt Count 136 L (150-450) k/uL Blast Cells % % Neutrophils # (Manual) (1.3-7.7) k/uL Monocytes # (Manual) (0-1.0) k/uL Metamyelocytes # (Man) (0) k/uL Myelocytes # (Manual) (0) k/uL Blast Cells # (Man) (0) k/uL Chloride (98-107) mmol/L BUN (9-20) mg/dL Creatinine (0.66-1.25) mg/dL Glucose (74-99) mg/dL POC Glucose (mg/dL) 256 H 190 H (75-99) mg/dL Calcium (8.4-10.2) mg/dL 05/16/20 Range/Units 07:32 WBC (3.8-10.6) k/uL RBC (4.30-5.90) m/uL Hgb (13.0-17.5) gm/dL Hct (39.0-53.0) % MCV (80.0-100.0) fL Plt Count (150-450) k/uL Blast Cells % % Neutrophils # (Manual) (1.3-7.7) k/uL Monocytes # (Manual) (0-1.0) k/uL Metamyelocytes # (Man) (0) k/uL Myelocytes # (Manual) (0) k/uL Blast Cells # (Man) (0) k/uL Chloride 113 H (98-107) mmol/L BUN 40 H (9-20) mg/dL Creatinine 1.27 H (0.66-1.25) mg/dL Glucose 167 H (74-99) mg/dL POC Glucose (mg/dL) (75-99) mg/dL Calcium 7.6 L (8.4-10.2) mg/dL Microbiology - Last 24 Hours (Table) 05/11/20 12:02 Blood Culture - Preliminary Blood No Growth after 96 hours Assessment and Plan Assessment: #1 right lower extremity common, deep and mid femoral vein DVT #2 postop day #1 for IVC filter placement #3 thrombocytopenia #4 Pseudomonas bacteremia #5 Klebsiella UTI #6 metastatic small cell lung cancer Plan: The patient underwent a IVC filter placement yesterday without any complications. There are no further indications for any vascular surgical intervention at this time. Patient is recommended to follow up with Dr. Selby in 4 weeks. We will sign off at this time. The impression and plan of care has been dictated as directed. Dr. Todd I performed a history and examination of this patient, discussed the same with the dictator. I agree with the dictator's note ,documented as a scribe. Any additional findings or plans will be noted.
[2020-05-16 12:07] LABS: Glucose,Whole Blood 231 mg/dL (75-99)
--- NOTE | 2020-05-16 13:23 | P.PN ---
Subjective Progress Note Date: 05/16/20 Principal diagnosis: Sepsis secondary to underlying UTI This is a 64-year-old male patient with a recent diagnosis of small cell lung cancer who is currently on a combination of chemotherapy including carboplatin and HEAD TRACK COACH-16. Diagnosis established on 04/11/2020 and the patient underwent a navigational bronchoscopy of the left upper lobe mass that confirmed the diagnosis. PET scan revealed suspicious uptake in the right supra hilar area and the patient has a right suprahilar mass, right hilar mass, pretracheal lymph nodes, left adrenal gland showed a mass with increased uptake in addition to uptake within the right adrenal gland. 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 The patient came in yesterday to the hospital with further weakness, generalized body weakness post systemic chemotherapy and received his first cycle of systemic chemotherapy around 5 days ago. He had an outpatient urinalysis and urine culture that was done on 05/07/2020 and was positive for Klebsiella pneumoniae. His blood cultures also showing gram-negative bacillus. The patient had a white cell count of 0.8 at time of admission and this morning his white cell count is at 2.1 with an absolute neutrophil count of 1.4K. The patient was started on IV cefepime. Earlier this morning he was having some worsening shortness of breath. He was felt to be in fluid overload and he was given a dose of Lasix 40 mg and following that he producing adequate amount of urine output. He has increased lower extremity edema and Doppler of the lower extremity be obtained. CAT scan of the chest that was repeated in the emergency department was consistent with small cell lung cancer, metastatic. The patient is seen today 05/12/2020 in follow-up on the selective care unit. He is currently sitting up in bed. Awake and alert in no acute distress. Maintaining O2 saturations in the 90s on 2 L/m per nasal cannula. She's afebrile. He's been somewhat hypotensive. Blood pressure 88/56 this morning. He did receive Coreg. White count 4.7. Hemoglobin 8.6. Platelet count 44,000. Blast cells 2. Glipizide 0.19. Sodium 136. Potassium 3.4. Bicarb 20. Creatinine 0.87. Urine culture positive for gram-negative bacilli, sputum culture positive for pseudomonas species. Final results pending. Dopplers positive for right lower extremity DVT. He is currently on Zosyn. Continued on IV diuretics, Arixtra, Zarxio. 0.9 normal saline at 100 ML's per hour. Patient is seen today in 05/13/2020 in follow-up on the selective care unit. He is currently resting comfortably in bed. A bit more weak and fatigued today compared to yesterday. He did have ongoing issues with atrial fibrillation with rapid ventricular response. He is on amiodarone at 0.5 mg per minute. Anticoag ulated with Arixtra. 0.9 normal saline at 100 MLS per hour. He is on 4 L/m per nasal cannula to maintain O2 saturations in the 90s. White count 15.3. Hemoglobin 9.1. Platelet count 69,000. Sodium 137. Potassium 3.1. Creatinine 1.08. TSH 0.015. Free T4 1 0.77. He is status post 2 units of platelets this admission thus far. He remains on Zosyn. On 05/14/2020 patient seen in follow-up on selective care unit. Patient is awake and alert, in no acute distress, 5 L of oxygen pulse ox of 96%, does get short of breath with exertion, but has been afebrile. He remains very weak, but breathing comfortably at rest, no hemoptysis, no chest pain, he is on antibiotics in the form of Zosyn for Klebsiella pneumonia in the urine, and pseudomonas aeruginosa in the blood cultures, complains of nausea, but no vomiting, no abdominal pain. Continues to be in A. fib with RVR, and he is being started on Cardizem infusion per cardiology, platelet count is 110, patient is on Arixtra per hematology. He also received 2 units of platelets last Thursday and last Thursday. White blood cell count is significantly decreased on today's labs, up to 37.1, hemoglobin is 9.5, sodium is 139, potassium is 5.7, chloride is 1:15, CO2 is 18, BUN is 38 and creatinine is 1.24. He is receiving IV hydration with 0.9 normal saline at a rate of 100 ML per hour, does have some generalized swelling. He's had no nausea or vomiting, no altered mentation, he is answering questions appropriately. His follow-up blood culture has shown no growth at the 72 hour dennis. On 05/15/2020 patient seen in follow-up on selective care unit, he is resting in bed, he is weak, but no acute distress, breathing comfortably, he does have a weak cough, nonproductive, no altered mentation, his is at the bedside, she is assisting him with his lunch. He denies any chest pain, no hemoptysis, vital signs are stable, he continues on Zosyn for Klebsiella pneumonia in the urine, and pseudomonas aeruginosa and the blood cultures. He is currently on 5 L of oxygen pulse ox of 99%, his had no fevers in the last 24 hours. Follow blood culture has shown no growth at the 96 hour dennis. Patient had a IVC filter placed today by vascular surgery. Today's labs have been reviewed, white blood cell count is 39.4, hemoglobin is 9.1, sodium is 139, potassium is 5.0, chloride is 113, CO2 is 20, BUN is 40 and creatinine is 1.32. Patient has had no nausea vomiting or diarrhea. Remains on Cardizem drip at 5 mg per hour for A. fib with RVR rate control, cardiology is following. Hematology/oncology is following, patient remains on Arixtra for anticoagulation. The patient is seen today 05/16/2020 in follow-up on the selective care unit. He is currently awake and alert. He remains quite weak. Continues with a loose nonproductive cough. He is maintaining O2 saturations up to 99% on 5 L/m per nasal cannula. He is afebrile. He remains tachycardic. He is status post 2 units of platelets this admission. Current platelet count 136,000. Hemoglobin 9.3. White count 49.4. Blast cells 2. Neutrophils 40. Sodium 139. Potassium 3.9. Creatinine 1.27. He remains on Arixtra. Continued on a Cardizem drip at 5 mg per hour. Antibiotics in the form of Zosyn. Objective - Vital Signs Vital signs: Vital Signs Temp 97.4 F L 05/16/20 09:15 Pulse 121 H 05/16/20 09:15 Resp 20 05/16/20 09:15 BP 132/86 05/16/20 09:15 Pulse Ox 99 05/16/20 09:15 Intake & Output 05/15/20 05/16/20 05/16/20 18:59 06:59 18:59 Intake Total 260 109.75 Output Total 1800 1100 Balance 260 -1690.25 -1100 Weight 95 kg Intake: IV 20 Intake, IV Titration 109.75 Amount Diltiazem 125 mg In 109.75 Sodium Chloride 0.9% 100 ml @ 5 MG/HR 5 mls/hr IV .Q24H [facility] Rx#:[id number] Oral 240 Output: Urine 1800 1100 Uretheral (Todd) 800 700 Other: Voiding Method Indwelling Catheter Indwelling Catheter Indwelling Catheter # Voids 0 # Bowel Movements 0 1 - Exam General: Very pleasant 64-year-old gentleman, pale, weak, fatigued, currently on 5 L/m per nasal cannula with O2 saturation 99%. Head: Normocephalic, atraumatic. Eyes: Symmetric. Pupils equal round. Ears: Symmetric. EYAK Mouth: Dry Neck: Neck was supple and without jugular venous distension, thyromegaly, or carotid bruits. Carotids were easily palpable bilaterally. There was no adenopathy. Cardiac: Cardiac exam revealed the PMI to be normally situated and sized. The rhythm was irregular and no extrasystoles were noted during several minutes of auscultation. The first and second heart sounds were normal and physiologic splitting of the second heart sound was noted. There were no murmurs, rubs, clicks, or gallops. Lungs: Lungs with crackles in the bilateral posterior bases Abdomen:Abdominal exam revealed normal bowel sounds. The abdomen was soft, non- tender, and without masses, organomegaly, or appreciable enlargement of the abdominal aorta. Extremities: Atrophy to muscular tone. The patient is +1 pitting edema lower extremities bilaterally. No cyanosis or clubbing. Neurological: Mental status: cooperative, pleasant. Cranial nerves: Symmetric facial Motor: does not elevate them or move legs. Mobility: Wheelchair at baseline - Labs CBC & Chem 7: 05/16/20 07:32 05/16/20 07:32 Labs: Abnormal Lab Results - Last 24 Hours (Table) 05/15/20 05/15/20 05/16/20 Range/Units 17:21 20:45 06:12 WBC (3.8-10.6) k/uL RBC (4.30-5.90) m/uL Hgb (13.0-17.5) gm/dL Hct (39.0-53.0) % MCV (80.0-100.0) fL Plt Count (150-450) k/uL Blast Cells % % Neutrophils # (Manual) (1.3-7.7) k/uL Monocytes # (Manual) (0-1.0) k/uL Metamyelocytes # (Man) (0) k/uL Myelocytes # (Manual) (0) k/uL Promyelocytes # (Man) (0) k/uL Blast Cells # (Man) (0) k/uL Chloride (98-107) mmol/L BUN (9-20) mg/dL Creatinine (0.66-1.25) mg/dL Glucose (74-99) mg/dL POC Glucose (mg/dL) 246 H 256 H 190 H (75-99) mg/dL Calcium (8.4-10.2) mg/dL 05/16/20 05/16/20 05/16/20 Range/Units 07:32 07:32 12:06 WBC 49.4 H (3.8-10.6) k/uL RBC 2.85 L (4.30-5.90) m/uL Hgb 9.3 L (13.0-17.5) gm/dL Hct 29.7 L (39.0-53.0) % MCV 104.1 H (80.0-100.0) fL Plt Count 136 L (150-450) k/uL Blast Cells % 2 H* % Neutrophils # (Manual) 40.00 H (1.3-7.7) k/uL Monocytes # (Manual) 1.98 H (0-1.0) k/uL Metamyelocytes # (Man) 1.48 H (0) k/uL Myelocytes # (Manual) 1.98 H (0) k/uL Promyelocytes # (Man) 2.47 H (0) k/uL Blast Cells # (Man) 0.99 H (0) k/uL Chloride 113 H (98-107) mmol/L BUN 40 H (9-20) mg/dL Creatinine 1.27 H (0.66-1.25) mg/dL Glucose 167 H (74-99) mg/dL POC Glucose (mg/dL) 231 H (75-99) mg/dL Calcium 7.6 L (8.4-10.2) mg/dL Microbiology - Last 24 Hours (Table) 05/11/20 12:02 Blood Culture - Preliminary Blood No Growth after 96 hours Assessment and Plan Assessment: 1 septic shock likely secondary to underlying Klebsiella pneumonia UTI and pseudomonas aeruginosa in the blood. 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 Ramos Labs reviewed Currently on Cardizem drip at 5 mg per hour IVC filter placement 05/15/2020 Continued on Arixtra On Zosyn Received platelets 2 Prognosis remains guarded Titrate down the FiO2 as tolerated We will continue to follow and make further recommendations based on his clinical status I, the cosigning physician, performed a history & physical examination of the patient. Lungs sounds crackles in the bilateral posterior bases Maintaining good O2 saturations in the 90s on 5 L/m per nasal cannula. I discussed the assessment and plan of care with my nurse practitioner, Mikayla Suggs. I attest to the above note as dictated by her.
--- NOTE | 2020-05-16 13:25 | P.PN ---
Subjective Progress Note Date: 05/16/20 this is a 64-year-old gentleman with recent diagnosis of small cell lung cancer who is currently on a comminution of chemotherapy. Patient initially presented to the hospital with symptoms of weakness, he had an outpatient urinalysis and urine culture that was done prior to coming to the hospital which was positive for Klebsiella. His blood cultures are showing gram-negative bacillus. Patient was seen and examined on the telemetry unit this morning, awake and alert, in no acute distress. He continues to be very very weak according to the patient.blood pressure 118/70 with a heart rate in the 90s, 99% on 5 L of oxygen. white blood cell count 39.4, hemoglobin 9.1, platelet count 117. Sodium 139, potassium 5.0, BUN 40, creatinine 1.3.patient did receive 2 units of platelets last Thursday and last Thursday. 05/16/2020 Patient seen and examined this morning, still feels quite weak, but does state that he is feeling a little bit better than yesterday. His heart rate currently is around 100. Blood pressure 132/80 99% on 5 L of oxygen. White blood cell count 49.4, hemoglobin 9.3, platelet count 136. Sodium 139, potassium 3.9, BUN 40, creatinine 1.2. Objective - Vital Signs Vital signs: Vital Signs Temp 97.4 F L 05/16/20 09:15 Pulse 121 H 05/16/20 09:15 Resp 20 05/16/20 09:15 BP 132/86 05/16/20 09:15 Pulse Ox 99 05/16/20 09:15 Intake & Output 05/15/20 05/16/20 05/16/20 18:59 06:59 18:59 Intake Total 260 109.75 236 Output Total 1800 1100 Balance 260 -1690.25 -864 Weight 95 kg Intake: IV 20 Intake, IV Titration 109.75 Amount Diltiazem 125 mg In 109.75 Sodium Chloride 0.9% 100 ml @ 5 MG/HR 5 mls/hr IV .Q24H [facility] Rx#:[id number] Oral 240 236 Output: Urine 1800 1100 Uretheral (Todd) 800 700 Other: Voiding Method Indwelling Catheter Indwelling Catheter Indwelling Catheter # Voids 0 # Bowel Movements 0 1 - Exam GENERAL EXAM: Alert, very pleasant, 64-year-old white male, appears to be generally weak, he is on 5 L of oxygen [id number] resting in bed, appears to be comfortable in no apparent distress. HEAD: Normocephalic/atraumatic. EYES: Normal reaction of pupils, equal size. Conjunctiva pink, sclera white. NOSE: Clear with pink turbinates. THROAT: No erythema or exudates. NECK: No masses, no JVD, no thyroid enlargement, no adenopathy. CHEST: No chest wall deformity. Symmetrical expansion. LUNGS: Equal air entry with no crackles, wheeze, rhonchi or dullness. CVS: Irregular rate and rhythm, normal S1 and S2, no gallops, no murmurs, no rubs ABDOMEN: Soft, nontender. No hepatosplenomegaly, normal bowel sounds, no guarding or rigidity. EXTREMITIES: No clubbing, 1+ lower extremity edema, no cyanosis, 2+ pulses and upper and lower extremities. MUSCULOSKELETAL: Muscle strength and tone normal. SPINE: No scoliosis or deformity SKIN: No rashes CENTRAL NERVOUS SYSTEM: Alert and oriented -3. No focal deficits, tone is normal in all 4 extremities. PSYCHIATRIC: Alert and oriented -3. Appropriate affect. Intact judgment and insight. - Labs CBC & Chem 7: 05/16/20 07:32 05/16/20 07:32 Labs: Abnormal Lab Results - Last 24 Hours (Table) 05/15/20 05/15/20 05/16/20 Range/Units 17:21 20:45 06:12 WBC (3.8-10.6) k/uL RBC (4.30-5.90) m/uL Hgb (13.0-17.5) gm/dL Hct (39.0-53.0) % MCV (80.0-100.0) fL Plt Count (150-450) k/uL Blast Cells % % Neutrophils # (Manual) (1.3-7.7) k/uL Monocytes # (Manual) (0-1.0) k/uL Metamyelocytes # (Man) (0) k/uL Myelocytes # (Manual) (0) k/uL Promyelocytes # (Man) (0) k/uL Blast Cells # (Man) (0) k/uL Chloride (98-107) mmol/L BUN (9-20) mg/dL Creatinine (0.66-1.25) mg/dL Glucose (74-99) mg/dL POC Glucose (mg/dL) 246 H 256 H 190 H (75-99) mg/dL Calcium (8.4-10.2) mg/dL 05/16/20 05/16/20 05/16/20 Range/Units 07:32 07:32 12:06 WBC 49.4 H (3.8-10.6) k/uL RBC 2.85 L (4.30-5.90) m/uL Hgb 9.3 L (13.0-17.5) gm/dL Hct 29.7 L (39.0-53.0) % MCV 104.1 H (80.0-100.0) fL Plt Count 136 L (150-450) k/uL Blast Cells % 2 H* % Neutrophils # (Manual) 40.00 H (1.3-7.7) k/uL Monocytes # (Manual) 1.98 H (0-1.0) k/uL Metamyelocytes # (Man) 1.48 H (0) k/uL Myelocytes # (Manual) 1.98 H (0) k/uL Promyelocytes # (Man) 2.47 H (0) k/uL Blast Cells # (Man) 0.99 H (0) k/uL Chloride 113 H (98-107) mmol/L BUN 40 H (9-20) mg/dL Creatinine 1.27 H (0.66-1.25) mg/dL Glucose 167 H (74-99) mg/dL POC Glucose (mg/dL) 231 H (75-99) mg/dL Calcium 7.6 L (8.4-10.2) mg/dL Microbiology - Last 24 Hours (Table) 05/11/20 12:02 Blood Culture - Preliminary Blood No Growth after 96 hours Assessment and Plan Plan: assessment and plan #1 septic shock, secondary to underlying Klebsiella pneumonia UTI, and pseudomonas aeruginosa in the blood #2 metastatic small cell lung cancer #3 positive DVT of the right lower extremity #4 obstructive sleep apnea #5 hypertension #6 hyperlipidemia #7 pancytopenia secondary to chemotherapy #8paroxysmal atrial fibrillation Plan Patient continues to be in atrial fibrillation this morning, heart rate in the 100-108 range. Continue beta suly at 100 mg twice a day along with the Cardizem drip at 5, if the heart rate becomes under study control we will disc ontinue the Cardizem. DNP note has been reviewed, I agree with a documented findings and plan of care. Patient was seen and examined.
--- NOTE | 2020-05-16 15:04 | P.PN ---
Subjective Progress Note Date: 05/16/20 Principal diagnosis: Sepsis remains afebrile, feeling better today CBC continues to improve. Objective - Vital Signs Vital signs: Vital Signs Temp 98.4 F 05/16/20 12:00 Pulse 99 05/16/20 12:00 Resp 20 05/16/20 12:00 BP 110/76 05/16/20 12:00 Pulse Ox 98 05/16/20 12:00 Intake & Output 05/15/20 05/16/20 05/16/20 18:59 06:59 18:59 Intake Total 260 109.75 236 Output Total 1800 1800 Balance 260 -1690.25 -1564 Weight 95 kg Intake: IV 20 Intake, IV Titration 109.75 Amount Diltiazem 125 mg In 109.75 Sodium Chloride 0.9% 100 ml @ 5 MG/HR 5 mls/hr IV .Q24H [facility] Rx#:[id number] Oral 240 236 Output: Urine 1800 1800 Uretheral (Todd) 800 1400 Other: Voiding Method Indwelling Catheter Indwelling Catheter Indwelling Catheter # Voids 0 # Bowel Movements 0 1 - Exam General: Lethargic weak, comfortable appearance. Head: Normocephalic, atraumatic. Eyes: Symmetric. Pupils equal round. Ears: Symmetric. YOMBA SHOSHONE Mouth: Dry Neck: Supple. Cardiac: Tachy Lungs: Diminished Abdomen: Soft active nontender. Extremities: Atrophy to muscular tone. + BLE edema Neurological: Mental status: cooperative, pleasant. Cranial nerves: Symmetric facial Motor: does not elevate them or move legs. Mobility: Wheelchair at baseline - Labs CBC & Chem 7: 05/16/20 07:32 05/16/20 07:32 Labs: Abnormal Lab Results - Last 24 Hours (Table) 05/15/20 05/15/20 05/16/20 Range/Units 17:21 20:45 06:12 WBC (3.8-10.6) k/uL RBC (4.30-5.90) m/uL Hgb (13.0-17.5) gm/dL Hct (39.0-53.0) % MCV (80.0-100.0) fL Plt Count (150-450) k/uL Blast Cells % % Neutrophils # (Manual) (1.3-7.7) k/uL Monocytes # (Manual) (0-1.0) k/uL Metamyelocytes # (Man) (0) k/uL Myelocytes # (Manual) (0) k/uL Promyelocytes # (Man) (0) k/uL Blast Cells # (Man) (0) k/uL Chloride (98-107) mmol/L BUN (9-20) mg/dL Creatinine (0.66-1.25) mg/dL Glucose (74-99) mg/dL POC Glucose (mg/dL) 246 H 256 H 190 H (75-99) mg/dL Calcium (8.4-10.2) mg/dL 05/16/20 05/16/20 05/16/20 Range/Units 07:32 07:32 12:06 WBC 49.4 H (3.8-10.6) k/uL RBC 2.85 L (4.30-5.90) m/uL Hgb 9.3 L (13.0-17.5) gm/dL Hct 29.7 L (39.0-53.0) % MCV 104.1 H (80.0-100.0) fL Plt Count 136 L (150-450) k/uL Blast Cells % 2 H* % Neutrophils # (Manual) 40.00 H (1.3-7.7) k/uL Monocytes # (Manual) 1.98 H (0-1.0) k/uL Metamyelocytes # (Man) 1.48 H (0) k/uL Myelocytes # (Manual) 1.98 H (0) k/uL Promyelocytes # (Man) 2.47 H (0) k/uL Blast Cells # (Man) 0.99 H (0) k/uL Chloride 113 H (98-107) mmol/L BUN 40 H (9-20) mg/dL Creatinine 1.27 H (0.66-1.25) mg/dL Glucose 167 H (74-99) mg/dL POC Glucose (mg/dL) 231 H (75-99) mg/dL Calcium 7.6 L (8.4-10.2) mg/dL Microbiology - Last 24 Hours (Table) 05/11/20 12:02 Blood Culture - Preliminary Blood No Growth after 120 hours Assessment and Plan (1) Right leg DVT Current Visit: Yes Status: Acute Code(s): I82.401 - ACUTE EMBOLISM AND THOMBOS UNSP DEEP VEINS OF R LOW EXTREM SNOMED Code(s): 660107510 (2) Pancytopenia Current Visit: Yes Status: Acute Code(s): D61.818 - OTHER PANCYTOPENIA SNOMED Code(s): 647548681 (3) Small cell lung cancer Current Visit: Yes Status: Acute Priority: High Code(s): C34.90 - MALIGNANT NEOPLASM OF UNSP PART OF UNSP BRONCHUS OR LUNG SNOMED Code(s): 296187959 (4) Weakness Current Visit: Yes Status: Acute Code(s): R53.1 - WEAKNESS SNOMED Code(s): 13675297 Plan: Assessment and recommendations: Limited Stage Small Cell Lung Cancer: - Status Post cycle one Carbo/[employer]CH[employer]ICIAN-16 (04/30-05/02) with Neulasta - On Hold for acute issues below Acute Right Lower Extremity DVT: - Switch to Eliquis - Status Post IVC filter 11.3.20 UTI/Bacteremia: - BC negative at 72 hours - Continued on IV antibiotics Thrombocytopenia: Stable 136K - Improving - Monitor daily - Improving with treatment of underlying infection. - Heparin antibodies not detected at this time, can switch to DOAC po at discharge
[2020-05-16] MEDS: FUROSEMIDE 10 MG/ML 4 ML VIAL IV SCH (16:25)
[2020-05-16 16:54] LABS: Glucose,Whole Blood 180 mg/dL (75-99)
[2020-05-16 20:27] LABS: Glucose,Whole Blood 166 mg/dL (75-99)
[2020-05-16] MEDS: APIXABAN 5 MG TAB PO SCH (20:42)
[2020-05-16] MEDS: TAMSULOSIN 0.4 MG CAP.ER.24H PO SCH (20:42)
--- NOTE | 2020-05-16 22:43 | P.PN ---
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 He is approx 7 days s/p his first cycle of carboplatin and etoposide and feels his symptoms have worsened since that time. He has continued to experience severe weakness over the past few months. On presentation he was tachycardic and febrile, WBC 0.8k, Hgb 10.5, plt 36. CTA performed showed no PE and interval enlargement of his hilar mass to 6 cm. 05/15: He continues to complain of orthopnea today, reports minimal cough and denies shortness of breath while upright. He continues on zosyn for pseudomonas bacteremia and remains on arixtra for DVT. Pt for IVC filter with vascular surgery today 05/16. He continues to complain today of orthopnea, overall unchanged from yesterday. His labs are stable from previous. He does continue on zosyn with repeat blood culture no growth at 72 hours. HR improved today and BP stable. Objective - Vital Signs Vital signs: Vital Signs Temp 98.5 F 05/16/20 15:29 Pulse 67 05/16/20 20:00 Resp 17 05/16/20 20:00 BP 123/69 05/16/20 20:00 Pulse Ox 100 05/16/20 20:00 Intake & Output 05/16/20 05/16/20 05/17/20 06:59 18:59 06:59 Intake Total 109.75 236 Output Total 1800 2600 Balance -1690.25 -2364 Weight 95 kg Intake: Intake, IV Titration 109.75 Amount Diltiazem 125 mg In 109.75 Sodium Chloride 0.9% 100 ml @ 5 MG/HR 5 mls/hr IV .Q24H [facility] Rx#:[id number] Oral 236 Output: Urine 1800 2600 Uretheral (Todd) 800 1400 Other: Voiding Method Indwelling Catheter Indwelling Catheter Indwelling Catheter # Bowel Movements 1 - Exam General: well nourished, well developed, NAD. Vitals reviewed Lungs: normal respiratory effort, no wheezes. Crackles at bases CV: Irregular. no murmur. 2+ edema terence Abdomen: soft, nondistended, no organomegaly Skin: warm and dry. - Labs CBC & Chem 7: 05/16/20 07:32 05/16/20 07:32 Labs: Abnormal Lab Results - Last 24 Hours (Table) 05/16/20 05/16/20 05/16/20 Range/Units 06:12 07:32 07:32 WBC 49.4 H (3.8-10.6) k/uL RBC 2.85 L (4.30-5.90) m/uL Hgb 9.3 L (13.0-17.5) gm/dL Hct 29.7 L (39.0-53.0) % MCV 104.1 H (80.0-100.0) fL Plt Count 136 L (150-450) k/uL Blast Cells % 2 H* % Neutrophils # (Manual) 40.00 H (1.3-7.7) k/uL Monocytes # (Manual) 1.98 H (0-1.0) k/uL Metamyelocytes # (Man) 1.48 H (0) k/uL Myelocytes # (Manual) 1.98 H (0) k/uL Promyelocytes # (Man) 2.47 H (0) k/uL Blast Cells # (Man) 0.99 H (0) k/uL Chloride 113 H (98-107) mmol/L BUN 40 H (9-20) mg/dL Creatinine 1.27 H (0.66-1.25) mg/dL Glucose 167 H (74-99) mg/dL POC Glucose (mg/dL) 190 H (75-99) mg/dL Calcium 7.6 L (8.4-10.2) mg/dL 05/16/20 05/16/20 05/16/20 Range/Units 12:06 16:52 20:25 WBC (3.8-10.6) k/uL RBC (4.30-5.90) m/uL Hgb (13.0-17.5) gm/dL Hct (39.0-53.0) % MCV (80.0-100.0) fL Plt Count (150-450) k/uL Blast Cells % % Neutrophils # (Manual) (1.3-7.7) k/uL Monocytes # (Manual) (0-1.0) k/uL Metamyelocytes # (Man) (0) k/uL Myelocytes # (Manual) (0) k/uL Promyelocytes # (Man) (0) k/uL Blast Cells # (Man) (0) k/uL Chloride (98-107) mmol/L BUN (9-20) mg/dL Creatinine (0.66-1.25) mg/dL Glucose (74-99) mg/dL POC Glucose (mg/dL) 231 H 180 H 166 H (75-99) mg/dL Calcium (8.4-10.2) mg/dL Microbiology - Last 24 Hours (Table) 05/11/20 12:02 Blood Culture - Preliminary Blood No Growth after 120 hours Assessment and Plan (1) Severe sepsis with acute organ dysfunction due to Pseudomonas species Current Visit: Yes Status: Acute Code(s): A41.52 - SEPSIS DUE TO PSEUDOMONAS; R65.20 - SEVERE SEPSIS WITHOUT SEPTIC SHOCK SNOMED Code(s): 288256596085615 (2) Lambert-Eaton myasthenic syndrome Current Visit: Yes Status: Acute Code(s): G70.80 - LAMBERT-EATON SYNDROME, UNSPECIFIED SNOMED Code(s): 98120697 (3) Cavitary lesion of lung Current Visit: Yes Status: Acute Code(s): J98.4 - OTHER DISORDERS OF LUNG SNOMED Code(s): 669892364 (4) Chemotherapy induced neutropenia Current Visit: Yes Status: Acute Code(s): D70.1 - AGRANULOCYTOSIS SECONDARY TO CANCER CHEMOTHERAPY; T45.1X5A - ADVERSE EFFECT OF ANTINEOPLASTIC AND IMMUNOSUP DRUGS, INIT SNOMED Code(s): 678478350 (5) Pancytopenia Current Visit: Yes Status: Acute Code(s): D61.818 - OTHER PANCYTOPENIA SNOMED Code(s): 610259026 (6) Right leg DVT Current Visit: Yes Status: Acute Code(s): I82.401 - ACUTE EMBOLISM AND THOMBOS UNSP DEEP VEINS OF R LOW EXTREM SNOMED Code(s): 791951918 (7) Small cell lung cancer Current Visit: Yes Status: Acute Priority: High Code(s): C34.90 - MALIGNANT NEOPLASM OF UNSP PART OF UNSP BRONCHUS OR LUNG SNOMED Code(s): 565020844 (8) Pressure ulcer of sacral region, stage 2 Current Visit: No Status: Acute Code(s): L89.152 - PRESSURE ULCER OF SACRAL REGION, STAGE 2 SNOMED Code(s): 860066161 (9) Type 2 diabetes mellitus Current Visit: No Status: Acute Code(s): E11.9 - TYPE 2 DIABETES MELLITUS WITHOUT COMPLICATIONS SNOMED Code(s): 21112990 Plan: Continue with current medications and interventions. Continue zosyn for sepsis. Cardiology following, continue lopressor and cardizem drip. Continue arixtra. Continue IV lasix daily for CHF
[2020-05-17] MEDS: SODIUM CHLORIDE 0.9% 1,000 ML IV SCH ×2 (03:44→23:30)
[2020-05-17] MEDS: PIPERACILLIN-TAZOBACTAM 3.375 GM in SODIUM CHLORIDE 0.9% 100 ML IVPB SCH ×3 (04:11→20:00)
[2020-05-17 06:08] LABS: Glucose,Whole Blood 261 mg/dL (75-99)
[2020-05-17] MEDS: INSULIN ASPART (NovoLOG) 100 UNIT/ML VIAL SQ SCH ×4 (06:38→20:09)
[2020-05-17] MEDS: FUROSEMIDE 10 MG/ML 4 ML VIAL IV SCH (08:01)
[2020-05-17] MEDS: METOPROLOL TARTRATE 50 MG TAB PO SCH ×2 (08:02→19:40)
[2020-05-17] MEDS: NYSTATIN 100,000 UNIT/ML SUSP 500,000 UNIT/5 ML CUP PO SCH ×4 (08:02→22:20)
[2020-05-17] MEDS: MAG HYDROX/AL HYDROX/SIMETH 30 ML, LIDOCAINE VISCOUS 30 ML, diphenhydrAMINE ELIXIR 75 M... PO SCH ×12 (08:02→22:19)
[2020-05-17] MEDS: APIXABAN 5 MG TAB PO SCH ×2 (08:02→21:26)
[2020-05-17 09:23] LABS: Albumin 2.2 g/dL (3.5-5.0); Calcium 7.5 mg/dL (8.4-10.2); Potassium 3.6 mmol/L (3.5-5.1); Total Bilirubin 0.5 mg/dL (0.2-1.3); Total Protein 4.6 g/dL (6.3-8.2)
[2020-05-17 09:51] LABS: HCT 32.6 % (39.0-53.0); HGB 9.9 gm/dL (13.0-17.5); Hypochromasia Marked; MCH 32.3 pg (25.0-35.0); MCHC 30.4 g/dL (31.0-37.0); MCV 106.3 fL (80.0-100.0); Macrocytosis Moderate; Platelet Count 173 k/uL (150-450); RBC 3.06 m/uL (4.30-5.90); RDW 14.6 % (11.5-15.5)
[2020-05-17 10:03] LABS: WBC 60.5 k/uL (3.8-10.6)
[2020-05-17 11:27] LABS: Band Neutrophils % 9 %; Lymphocytes # (M) 1.82 k/uL (1.0-4.8); Metamyelocytes # (M) 6.05 k/uL (0); Metamyelocytes % 10 %; Monocytes # (M) 2.42 k/uL (0-1.0); Myelocytes # (M) 5.45 k/uL (0); Myelocytes % 9 %; Neutrophils % (M) 66 %; Nucleated Red Blood Cells 0 /100 WBC (0-0); Total Cells Counted 200
[2020-05-17 11:28] LABS: Poikilocytosis (M) Present
[2020-05-17] MEDS: DILTIAZEM ORAL 30 MG TAB PO SCH ×2 (11:40→16:04)
[2020-05-17 11:51] LABS: Glucose,Whole Blood 280 mg/dL (75-99)
--- NOTE | 2020-05-17 12:53 | P.PN ---
Subjective Progress Note Date: 05/17/20 this is a 64-year-old gentleman with recent diagnosis of small cell lung cancer who is currently on a comminution of chemotherapy. Patient initially presented to the hospital with symptoms of weakness, he had an outpatient urinalysis and urine culture that was done prior to coming to the hospital which was positive for Klebsiella. His blood cultures are showing gram-negative bacillus. Patient was seen and examined on the telemetry unit this morning, awake and alert, in no acute distress. He continues to be very very weak according to the patient.blood pressure 118/70 with a heart rate in the 90s, 99% on 5 L of oxygen. white blood cell count 39.4, hemoglobin 9.1, platelet count 117. Sodium 139, potassium 5.0, BUN 40, creatinine 1.3.patient did receive 2 units of platelets last Thursday and last Thursday. 05/16/2020 Patient seen and examined this morning, still feels quite weak, but does state that he is feeling a little bit better than yesterday. His heart rate currently is around 100. Blood pressure 132/80 99% on 5 L of oxygen. White blood cell count 49.4, hemoglobin 9.3, platelet count 136. Sodium 139, potassium 3.9, BUN 40, creatinine 1.2. 05/17/2020 Patient was seen and examined this morning, overall feeling weak, he states he doesn't feel much better overall at all. Blood pressure 134/70, heart rate in the 90s to 1 teens, but the patient has not yet received his oral beta suly. He is 96% on 4 L of oxygen. Blood cell count 60.5, hemoglobin 9.9, platelet count 173, sodium 140, potassium 3.6, BUN 36, creatinine 1.2. Objective - Vital Signs Vital signs: Vital Signs Temp 97.5 F L 05/17/20 11:45 Pulse 115 H 05/17/20 11:45 Resp 20 05/17/20 11:45 BP 134/71 05/17/20 11:45 Pulse Ox 96 05/17/20 11:45 Intake & Output 05/16/20 05/17/20 05/17/20 18:59 06:59 18:59 Intake Total 236 190 Output Total 7948 4370 1000 Balance -7031 -4776 -810 Weight 95 kg 95 kg Intake: Intake, IV Titration 100 Amount Piperacillin-Tazobactam 3 100 .375 gm In Sodium Chloride 0.9% 100 ml @ 25 mls/hr IVPB Q8H [facility] Rx#: [id number] Oral 236 90 Output: Urine 2600 2675 1000 Uretheral (Todd) 1400 Other: Voiding Method Indwelling Catheter Indwelling Catheter Indwelling Catheter # Bowel Movements 1 - Exam GENERAL EXAM: Alert, very pleasant, 64-year-old white male, appears to be generally weak, he is on 5 L of oxygen [id number]%, resting in bed, appears to be comfortable in no apparent distress. HEAD: Normocephalic/atraumatic. EYES: Normal reaction of pupils, equal size. Conjunctiva pink, sclera white. NOSE: Clear with pink turbinates. THROAT: No erythema or exudates. NECK: No masses, no JVD, no thyroid enlargement, no adenopathy. CHEST: No chest wall deformity. Symmetrical expansion. LUNGS: Equal air entry with no crackles, wheeze, rhonchi or dullness. CVS: Irregular rate and rhythm, normal S1 and S2, no gallops, no murmurs, no rubs ABDOMEN: Soft, nontender. No hepatosplenomegaly, normal bowel sounds, no guarding or rigidity. EXTREMITIES: No clubbing, 1+ lower extremity edema, no cyanosis, 2+ pulses and upper and lower extremities. MUSCULOSKELETAL: Muscle strength and tone normal. SPINE: No scoliosis or deformity SKIN: No rashes CENTRAL NERVOUS SYSTEM: Alert and oriented -3. No focal deficits, tone is normal in all 4 extremities. PSYCHIATRIC: Alert and oriented -3. Appropriate affect. Intact judgment and insight. - Labs CBC & Chem 7: 05/17/20 08:48 05/17/20 08:40 Labs: Abnormal Lab Results - Last 24 Hours (Table) 05/16/20 05/16/20 05/17/20 Range/Units 16:52 20:25 06:07 WBC (3.8-10.6) k/uL RBC (4.30-5.90) m/uL Hgb (13.0-17.5) gm/dL Hct (39.0-53.0) % MCV (80.0-100.0) fL MCHC (31.0-37.0) g/dL Neutrophils # (Manual) (1.3-7.7) k/uL Monocytes # (Manual) (0-1.0) k/uL Metamyelocytes # (Man) (0) k/uL Myelocytes # (Manual) (0) k/uL Chloride (98-107) mmol/L Carbon Dioxide (22-30) mmol/L BUN (9-20) mg/dL Glucose (74-99) mg/dL POC Glucose (mg/dL) 180 H 166 H 261 H (75-99) mg/dL Calcium (8.4-10.2) mg/dL Alkaline Phosphatase (38-126) U/L Total Protein (6.3-8.2) g/dL Albumin (3.5-5.0) g/dL 05/17/20 05/17/20 05/17/20 Range/Units 08:40 08:48 11:41 WBC 60.5 H* (3.8-10.6) k/uL RBC 3.06 L (4.30-5.90) m/uL Hgb 9.9 L (13.0-17.5) gm/dL Hct 32.6 L (39.0-53.0) % MCV 106.3 H (80.0-100.0) fL MCHC 30.4 L (31.0-37.0) g/dL Neutrophils # (Manual) 45.30 H (1.3-7.7) k/uL Monocytes # (Manual) 2.42 H (0-1.0) k/uL Metamyelocytes # (Man) 6.05 H (0) k/uL Myelocytes # (Manual) 5.45 H (0) k/uL Chloride 115 H (98-107) mmol/L Carbon Dioxide 20 L (22-30) mmol/L BUN 36 H (9-20) mg/dL Glucose 237 H (74-99) mg/dL POC Glucose (mg/dL) 280 H (75-99) mg/dL Calcium 7.5 L (8.4-10.2) mg/dL Alkaline Phosphatase 189 H (38-126) U/L Total Protein 4.6 L (6.3-8.2) g/dL Albumin 2.2 L (3.5-5.0) g/dL Microbiology - Last 24 Hours (Table) 05/11/20 12:02 Blood Culture - Preliminary Blood No Growth after 120 hours Assessment and Plan Plan: assessment and plan #1 septic shock, secondary to underlying Klebsiella pneumonia UTI, and pseudomonas aeruginosa in the blood #2 metastatic small cell lung cancer #3 positive DVT of the right lower extremity #4 obstructive sleep apnea #5 hypertension #6 hyperlipidemia #7 pancytopenia secondary to chemotherapy #8paroxysmal atrial fibrillation Plan Patient continues to be in atrial fibrillation this morning, heart rate in the 100-108 range. We will continue the beta suly at 100 mg by mouth twice a day, discontinue the IV Cardizem drip and start the patient on oral verapamil. DNP note has been reviewed, I agree with a documented findings and plan of care. Patient was seen and examined.
[2020-05-17] MEDS ORDERED: VERAPAMIL 40 MG TAB PO SCH (13:00)
[2020-05-17 16:51] LABS: Glucose,Whole Blood 190 mg/dL (75-99)
[2020-05-17] MEDS ORDERED: DILTIAZEM ORAL 60 MG TAB PO STA (19:25)
[2020-05-17] MEDS: TAMSULOSIN 0.4 MG CAP.ER.24H PO SCH (19:59)
[2020-05-17 20:25] LABS: HCT 27.2 % (39.0-53.0); HGB 8.7 gm/dL (13.0-17.5); Hypochromasia Moderate; MCH 32.7 pg (25.0-35.0); MCHC 31.9 g/dL (31.0-37.0); MCV 102.5 fL (80.0-100.0); Macrocytosis Slight; Platelet Count 191 k/uL (150-450); RBC 2.65 m/uL (4.30-5.90); RDW 14.5 % (11.5-15.5)
--- NOTE | 2020-05-17 20:30 | P.PN ---
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 He is approx 7 days s/p his first cycle of carboplatin and etoposide and feels his symptoms have worsened since that time. He has continued to experience severe weakness over the past few months. On presentation he was tachycardic and febrile, WBC 0.8k, Hgb 10.5, plt 36. CTA performed showed no PE and interval enlargement of his hilar mass to 6 cm. 05/15: He continues to complain of orthopnea today, reports minimal cough and denies shortness of breath while upright. He continues on zosyn for pseudomonas bacteremia and remains on arixtra for DVT. Pt for IVC filter with vascular surgery today 05/16. He continues to complain today of orthopnea, overall unchanged from yesterday. His labs are stable from previous. He does continue on zosyn with repeat blood culture no growth at 72 hours. HR improved today and BP stable. 05/17: Pt diuresed well with IV lasix and feels his orthopnea is improved. He remains in atrial fibrillation and his IV cardizem was switched to oral verapamil per Cardiology. He remains on arixtra, he is having some oozing around his LUE IV catheter. His hemoglobin is stable at 9.9 and WBC is 60k with neutrophilia. Objective - Vital Signs Vital signs: Vital Signs Temp 97.6 F 05/17/20 19:46 Pulse 144 H 05/17/20 19:57 Resp 16 05/17/20 19:57 BP 108/60 05/17/20 19:46 Pulse Ox 99 05/17/20 19:46 Intake & Output 05/17/20 05/17/20 05/18/20 06:59 18:59 06:59 Intake Total 490 Output Total 2675 1999 Balance -2674 151 Weight 95 kg 95 kg Intake: Intake, IV Titration 100 Amount Piperacillin-Tazobactam 3 100 .375 gm In Sodium Chloride 0.9% 100 ml @ 25 mls/hr IVPB Q8H [facility] Rx#: [id number] Oral 390 Output: Urine 2675 1999 Other: Voiding Method Indwelling Catheter Indwelling Catheter Indwelling Catheter - Exam General: well nourished, well developed, NAD. Vitals reviewed Lungs: normal respiratory effort, no wheezes. Crackles at bases improved CV: Irregular. no murmur. 1+ edema terence Abdomen: soft, nondistended, no organomegaly Skin: warm and dry. - Labs CBC & Chem 7: 05/17/20 08:48 05/17/20 08:40 Labs: Abnormal Lab Results - Last 24 Hours (Table) 05/16/20 05/17/20 05/17/20 Range/Units 20:25 06:07 08:40 WBC (3.8-10.6) k/uL RBC (4.30-5.90) m/uL Hgb (13.0-17.5) gm/dL Hct (39.0-53.0) % MCV (80.0-100.0) fL MCHC (31.0-37.0) g/dL Neutrophils # (Manual) (1.3-7.7) k/uL Monocytes # (Manual) (0-1.0) k/uL Metamyelocytes # (Man) (0) k/uL Myelocytes # (Manual) (0) k/uL Chloride 115 H (98-107) mmol/L Carbon Dioxide 20 L (22-30) mmol/L BUN 36 H (9-20) mg/dL Glucose 237 H (74-99) mg/dL POC Glucose (mg/dL) 166 H 261 H (75-99) mg/dL Calcium 7.5 L (8.4-10.2) mg/dL Alkaline Phosphatase 189 H (38-126) U/L Total Protein 4.6 L (6.3-8.2) g/dL Albumin 2.2 L (3.5-5.0) g/dL 05/17/20 05/17/20 05/17/20 Range/Units 08:48 11:41 16:39 WBC 60.5 H* (3.8-10.6) k/uL RBC 3.06 L (4.30-5.90) m/uL Hgb 9.9 L (13.0-17.5) gm/dL Hct 32.6 L (39.0-53.0) % MCV 106.3 H (80.0-100.0) fL MCHC 30.4 L (31.0-37.0) g/dL Neutrophils # (Manual) 45.30 H (1.3-7.7) k/uL Monocytes # (Manual) 2.42 H (0-1.0) k/uL Metamyelocytes # (Man) 6.05 H (0) k/uL Myelocytes # (Manual) 5.45 H (0) k/uL Chloride (98-107) mmol/L Carbon Dioxide (22-30) mmol/L BUN (9-20) mg/dL Glucose (74-99) mg/dL POC Glucose (mg/dL) 280 H 190 H (75-99) mg/dL Calcium (8.4-10.2) mg/dL Alkaline Phosphatase (38-126) U/L Total Protein (6.3-8.2) g/dL Albumin (3.5-5.0) g/dL Microbiology - Last 24 Hours (Table) 05/11/20 12:02 Blood Culture - Final Blood No Growth after 144 hours Assessment and Plan (1) Severe sepsis with acute organ dysfunction due to Pseudomonas species Current Visit: Yes Status: Acute Code(s): A41.52 - SEPSIS DUE TO PSEUDOMONAS; R65.20 - SEVERE SEPSIS WITHOUT SEPTIC SHOCK SNOMED Code(s): 762188389194040 (2) Lambert-Eaton myasthenic syndrome Current Visit: Yes Status: Acute Code(s): G70.80 - LAMBERT-EATON SYNDROME, UNSPECIFIED SNOMED Code(s): 48301921 (3) Cavitary lesion of lung Current Visit: Yes Status: Acute Code(s): J98.4 - OTHER DISORDERS OF LUNG SNOMED Code(s): 757585695 (4) Chemotherapy induced neutropenia Current Visit: Yes Status: Acute Code(s): D70.1 - AGRANULOCYTOSIS SECONDARY TO CANCER CHEMOTHERAPY; T45.1X5A - ADVERSE EFFECT OF ANTINEOPLASTIC AND IMMUNOSUP DRUGS, INIT SNOMED Code(s): 697163314 (5) Pancytopenia Current Visit: Yes Status: Acute Code(s): D61.818 - OTHER PANCYTOPENIA SNOMED Code(s): 677956667 (6) Right leg DVT Current Visit: Yes Status: Acute Code(s): I82.401 - ACUTE EMBOLISM AND THOMBOS UNSP DEEP VEINS OF R LOW EXTREM SNOMED Code(s): 995942566 (7) Small cell lung cancer Current Visit: Yes Status: Acute Priority: High Code(s): C34.90 - MALIGNANT NEOPLASM OF UNSP PART OF UNSP BRONCHUS OR LUNG SNOMED Code(s): 907691951 (8) Pressure ulcer of sacral region, stage 2 Current Visit: No Status: Acute Code(s): L89.152 - PRESSURE ULCER OF SACRAL REGION, STAGE 2 SNOMED Code(s): 353761664 (9) Type 2 diabetes mellitus Current Visit: No Status: Acute Code(s): E11.9 - TYPE 2 DIABETES MELLITUS WITHOUT COMPLICATIONS SNOMED Code(s): 07088939 Plan: Switch IV lasix to PO starting tomorrow. Continue verapamil and arixtra. Continue remainder of current medications and treatments. Repeat BP negative, stop zosyn today. Discharge planning in progress next 24-48 hours
[2020-05-17 20:33] LABS: Glucose,Whole Blood 127 mg/dL (75-99)
[2020-05-17 20:39] LABS: WBC 57.9 k/uL (3.8-10.6)
[2020-05-17 21:21] LABS: Band Neutrophils % 14 %; Blast Cells # (M) 0.58 k/uL (0); Lymphocytes # (M) 1.74 k/uL (1.0-4.8); Metamyelocytes # (M) 4.63 k/uL (0); Metamyelocytes % 8 %; Monocytes # (M) 0.58 k/uL (0-1.0); Myelocytes # (M) 4.05 k/uL (0); Myelocytes % 7 %; Neutrophils % (M) 68 %; Nucleated Red Blood Cells 0 /100 WBC (0-0); Total Cells Counted 200
[2020-05-17] MEDS ORDERED: TRANEXAMIC ACID 1,000 MG/10 ML VIAL IRRIGATION ONE (21:23)
[2020-05-17] MEDS: HYDROcodone/APAP 5-325MG 1 EACH TAB PO PRN (22:18)
[2020-05-18] MEDS: INSULIN ASPART (NovoLOG) 100 UNIT/ML VIAL SQ SCH ×4 (06:27→22:19)
[2020-05-18 06:30] LABS: Glucose,Whole Blood 200 mg/dL (75-99)
[2020-05-18] MEDS: DILTIAZEM ORAL 30 MG TAB PO SCH ×2 (06:31→08:07)
[2020-05-18] MEDS: NYSTATIN 100,000 UNIT/ML SUSP 500,000 UNIT/5 ML CUP PO SCH ×4 (08:07→22:38)
[2020-05-18] MEDS: METOPROLOL TARTRATE 50 MG TAB PO SCH ×2 (08:07→22:23)
[2020-05-18] MEDS: MAG HYDROX/AL HYDROX/SIMETH 30 ML, LIDOCAINE VISCOUS 30 ML, diphenhydrAMINE ELIXIR 75 M... PO SCH ×12 (08:08→22:38)
[2020-05-18 09:00] LABS: Calcium 7.2 mg/dL (8.4-10.2)
[2020-05-18] MEDS ORDERED: FUROSEMIDE 40 MG TAB PO SCH (09:00)
[2020-05-18 09:25] LABS: HCT 26.5 % (39.0-53.0); HGB 8.1 gm/dL (13.0-17.5); Hypochromasia Moderate; MCH 31.4 pg (25.0-35.0); MCHC 30.5 g/dL (31.0-37.0); MCV 103.1 fL (80.0-100.0); Macrocytosis Slight; Mean Platelet Volume 10.7; Platelet Count 218 k/uL (150-450); RBC 2.57 m/uL (4.30-5.90); RDW 14.9 % (11.5-15.5)
[2020-05-18 09:26] LABS: WBC 55.1 k/uL (3.8-10.6)
[2020-05-18] MEDS ORDERED: DILTIAZEM ORAL 30 MG TAB PO STA ×2 (10:16→10:17)
[2020-05-18] MEDS ORDERED: FUROSEMIDE 20 MG TAB PO STA (11:24)
[2020-05-18 11:59] LABS: Glucose,Whole Blood 199 mg/dL (75-99)
[2020-05-18] MEDS ORDERED: Potassium Replacement Protocol 1 EACH MISC MISCELLANE PRN (12:22)
[2020-05-18] MEDS ORDERED: Magnesium Replacement Protocol 1 EACH MISC MISCELLANE PRN (12:23)
--- NOTE | 2020-05-18 12:44 | P.PN ---
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 He is approx 7 days s/p his first cycle of carboplatin and etoposide and feels his symptoms have worsened since that time. He has continued to experience severe weakness over the past few months. On presentation he was tachycardic and febrile, WBC 0.8k, Hgb 10.5, plt 36. CTA performed showed no PE and interval enlargement of his hilar mass to 6 cm. He was started on vancomycin and IV fluids, this morning pt complains of continued wet cough and shortness of breath. Complains of just generalized weakness, weak cough,shortness of breath. Maintaining O2 sats in the 90s on 5 L nasal cannula. Afebrile. 05/18/2020 Developed oozing around the skin tear on left forearm, Tranexamic acid applied, improving. Eliquis discontinued, patient has IVC filter. Hemoglobin dropped to 8.1. WBC trending down, 55.1,oncology following.Uncontrolled A. fib, on Cardizem. Telemetry reporting heart rates up into the 150s, currently in the 1 teens. Renal function improving, hypokalemia, potassium 3. Objective - Vital Signs Vital signs: Vital Signs Temp 98.1 F 05/18/20 07:56 Pulse 120 H 05/18/20 08:00 Resp 18 05/18/20 08:00 BP 120/72 05/18/20 07:56 Pulse Ox 96 05/18/20 07:56 Intake & Output 05/17/20 05/18/20 05/18/20 18:59 06:59 18:59 Intake Total 490 80 240 Output Total 2000 500 Balance -1510 -420 240 Weight 95 kg 95.5 kg Intake: IV 80 0.9 80 Intake, IV Titration 100 Amount Piperacillin-Tazobactam 3 100 .375 gm In Sodium Chloride 0.9% 100 ml @ 25 mls/hr IVPB Q8H [facility] Rx#: [id number] Oral 390 240 Output: Urine 2000 500 Other: Voiding Method Indwelling Catheter Indwelling Catheter Indwelling Catheter - Exam General: well nourished, well developed, NAD. Vitals reviewed Eyes: PERRL, EOMI, conjunctiva normal HENT: normocephalic, mucus membranes moist Neck: supple, no JVD Lungs: Increased respiratory effort, no wheezes. Bibasilar crackles CV: Regular rate and rhythm, no murmur. Tachycardic ,Peripheral pulses 2+. Bilateral LE edema improving Abdomen: soft, nondistended, no organomegaly Skin: warm and dry. Neuro: A&Ox3, normal mood and affect Microbiology 05/11/20 12:02 Blood Blood Culture - Final No Growth after 144 hours 05/10/20 13:51 Urine,Voided Urine Culture - Final Klebsiella pneumoniae 05/10/20 16:20 Blood Blood Culture Gram Stain - Final 05/10/20 16:20 Blood Blood Culture - Final Pseudomonas aeruginosa 05/10/20 16:20 Blood Blood Culture - Final - Labs CBC & Chem 7: 05/18/20 07:56 05/18/20 07:56 Labs: Abnormal Lab Results - Last 24 Hours (Table) 05/17/20 05/17/20 05/17/20 Range/Units 08:48 11:41 16:39 WBC (3.8-10.6) k/uL RBC (4.30-5.90) m/uL Hgb (13.0-17.5) gm/dL Hct (39.0-53.0) % MCV (80.0-100.0) fL MCHC (31.0-37.0) g/dL Blast Cells % % Neutrophils # (Manual) 45.30 H (1.3-7.7) k/uL Monocytes # (Manual) 2.42 H (0-1.0) k/uL Metamyelocytes # (Man) 6.05 H (0) k/uL Myelocytes # (Manual) 5.45 H (0) k/uL Blast Cells # (Man) (0) k/uL Potassium (3.5-5.1) mmol/L Chloride (98-107) mmol/L BUN (9-20) mg/dL Glucose (74-99) mg/dL POC Glucose (mg/dL) 280 H 190 H (75-99) mg/dL Calcium (8.4-10.2) mg/dL 05/17/20 05/17/20 05/18/20 Range/Units 20:02 20:04 06:18 WBC 57.9 H* (3.8-10.6) k/uL RBC 2.65 L (4.30-5.90) m/uL Hgb 8.7 L (13.0-17.5) gm/dL Hct 27.2 L (39.0-53.0) % MCV 102.5 H (80.0-100.0) fL MCHC (31.0-37.0) g/dL Blast Cells % 1 H* % Neutrophils # (Manual) 47.40 H (1.3-7.7) k/uL Monocytes # (Manual) (0-1.0) k/uL Metamyelocytes # (Man) 4.63 H (0) k/uL Myelocytes # (Manual) 4.05 H (0) k/uL Blast Cells # (Man) 0.58 H (0) k/uL Potassium (3.5-5.1) mmol/L Chloride (98-107) mmol/L BUN (9-20) mg/dL Glucose (74-99) mg/dL POC Glucose (mg/dL) 127 H 200 H (75-99) mg/dL Calcium (8.4-10.2) mg/dL 05/18/20 05/18/20 Range/Units 07:56 07:56 WBC 55.1 H* (3.8-10.6) k/uL RBC 2.57 L (4.30-5.90) m/uL Hgb 8.1 L (13.0-17.5) gm/dL Hct 26.5 L (39.0-53.0) % MCV 103.1 H (80.0-100.0) fL MCHC 30.5 L (31.0-37.0) g/dL Blast Cells % % Neutrophils # (Manual) (1.3-7.7) k/uL Monocytes # (Manual) (0-1.0) k/uL Metamyelocytes # (Man) (0) k/uL Myelocytes # (Manual) (0) k/uL Blast Cells # (Man) (0) k/uL Potassium 3.0 L (3.5-5.1) mmol/L Chloride 111 H (98-107) mmol/L BUN 35 H (9-20) mg/dL Glucose 102 H (74-99) mg/dL POC Glucose (mg/dL) (75-99) mg/dL Calcium 7.2 L (8.4-10.2) mg/dL Microbiology - Last 24 Hours (Table) 05/11/20 12:02 Blood Culture - Final Blood No Growth after 144 hours Assessment and Plan Assessment: (1) Severe sepsis with acute organ dysfunction due to acute UTI with Klebsiella pneumoniae, bacteremia with pseudomonas aeruginosa Current Visit: Yes Status: Acute Code(s): A41.52 - SEPSIS DUE TO PSEUDOMONAS; R65.20 - SEVERE SEPSIS WITHOUT SEPTIC SHOCK SNOMED Code(s): 557269946440987 (2) Lambert-Eaton myasthenic syndrome Current Visit: Yes Status: Acute Code(s): G70.80 - LAMBERT-EATON SYNDROME, UNSPECIFIED SNOMED Code(s): 67755423 (3) Cavitary lesion of lung Current Visit: Yes Status: Acute Code(s): J98.4 - OTHER DISORDERS OF LUNG SNOMED Code(s): 614337524 (4) Chemotherapy induced neutropenia Current Visit: Yes Status: Acute Code(s): D70.1 - AGRANULOCYTOSIS SECONDARY TO CANCER CHEMOTHERAPY; T45.1X5A - ADVERSE EFFECT OF ANTINEOPLASTIC AND IMMUNOSUP DRUGS, INIT SNOMED Code(s): 824061538 (5) Pancytopenia Current Visit: Yes Status: Acute Code(s): D61.818 - OTHER PANCYTOPENIA SNOMED Code(s): 078083542 (6) Right leg DVT, status post IVC filter placement Current Visit: Yes Status: Acute Code(s): I82.401 - ACUTE EMBOLISM AND THOMBOS UNSP DEEP VEINS OF R LOW EXTREM SNOMED Code(s): 755081445 (7) Small cell lung cancer Current Visit: Yes Status: Acute Priority: High Code(s): C34.90 - MALIGNANT NEOPLASM OF UNSP PART OF UNSP BRONCHUS OR LUNG SNOMED Code(s): 204678294 (8) Pressure ulcer of sacral region, stage 2 Current Visit: No Status: Acute Code(s): L89.152 - PRESSURE ULCER OF SACRAL REGION, STAGE 2 SNOMED Code(s): 595247968 (9) Type 2 diabetes mellitus Current Visit: No Status: Acute Code(s): E11.9 - TYPE 2 DIABETES MELLITUS WITHOUT COMPLICATIONS SNOMED Code(s): 62901564 (10) hypokalemia (11) pulmonary edema secondary to chemotherapy (12) CAD (13) A. fib with RVR, new onset. Plan: Continue on current medication regime ,monitoring and symptomatic treatment. Antiarrhythmics as per cardiology. Oral diuretics. Potassium supplements ordered, magnesium level ordered and pending. The impression and plan of care has been dictated as directed. : I performed a history and examination of this patient, discussed the same with the dictator. I agree with the dictator's note ,documented as a scribe. Any additional findings or plans will be noted.
[2020-05-18 12:54] LABS: Band Neutrophils % 6 %; Blast Cells # (M) 0.55 k/uL (0); Eosinophils # (M) 0.55 k/uL (0-0.7); Lymphocytes # (M) 1.65 k/uL (1.0-4.8); Metamyelocytes % 2 %; Myelocytes # (M) 4.96 k/uL (0); Myelocytes % 9 %; Neutrophils % (M) 76 %; Nucleated Red Blood Cells 0 /100 WBC (0-0); Total Cells Counted 200
--- NOTE | 2020-05-18 14:51 | P.PN ---
Subjective Progress Note Date: 05/18/20 HISTORY OF PRESENT ILLNESS: Patient examined this morning at the bedside. Patient denies chest pain or pressure. He denies shortness of breath at the time of examination. Patient remains in A. fib with RVR. Heart rate in the 140s. He has received his morning dose of metoprolol and Cardizem. PHYSICAL EXAM: VITAL SIGNS: Reviewed. GENERAL: Well-developed in no acute distress. NECK: Supple. No JVD or thyromegaly LUNGS: Respirations even and unlabored. Lungs diminished bilaterally. HEART: Irregular rate and rhythm. S1 and S2 heard. EXTREMITIES: Normal range of motion. No clubbing or cyanosis. Peripheral pulses intact. 2-3+ bilateral lower extremity edema ASSESSMENT: Septic shock, secondary to underlying Klebsiella pneumonia UTI and pseudomonas aeruginosa in the blood Metastatic small cell lung cancer Hyperkalemia Paroxysmal atrial fibrillation with RVR Acute DVT of right lower extremity Obstructive sleep apnea Hypertension Hyperlipidemia PLAN: Increase oral Lasix to 60 mg twice a day secondary to increased lower extremity edema Increase Cardizem to 60 mg 3 times a day for optimal heart rate control Continue additional cardiac medications Nurse practitioner note has been reviewed by physician. Signing provider agrees with the documented findings, assessment, and plan of care. Objective - Vital Signs Vital signs: Vital Signs Temp 97.8 F 05/18/20 11:30 Pulse 66 05/18/20 11:33 Resp 16 05/18/20 11:33 BP 120/70 05/18/20 11:30 Pulse Ox 95 05/18/20 11:30 Intake & Output 05/17/20 05/18/20 05/18/20 18:59 06:59 18:59 Intake Total 490 80 420 Output Total 2000 500 500 Balance -1510 -420 -80 Weight 95 kg 95.5 kg Intake: IV 80 0.9 80 Intake, IV Titration 100 Amount Piperacillin-Tazobactam 3 100 .375 gm In Sodium Chloride 0.9% 100 ml @ 25 mls/hr IVPB Q8H [facility] Rx#: [id number] Oral 390 420 Output: Urine 2000 500 500 Other: Voiding Method Indwelling Catheter Indwelling Catheter Indwelling Catheter - Labs CBC & Chem 7: 05/18/20 07:56 05/18/20 07:56 Labs: Abnormal Lab Results - Last 24 Hours (Table) 05/17/20 05/17/20 05/17/20 Range/Units 16:39 20:02 20:04 WBC 57.9 H* (3.8-10.6) k/uL RBC 2.65 L (4.30-5.90) m/uL Hgb 8.7 L (13.0-17.5) gm/dL Hct 27.2 L (39.0-53.0) % MCV 102.5 H (80.0-100.0) fL MCHC (31.0-37.0) g/dL Blast Cells % 1 H* % Neutrophils # (Manual) 47.40 H (1.3-7.7) k/uL Monocytes # (Manual) (0-1.0) k/uL Metamyelocytes # (Man) 4.63 H (0) k/uL Myelocytes # (Manual) 4.05 H (0) k/uL Blast Cells # (Man) 0.58 H (0) k/uL Potassium (3.5-5.1) mmol/L Chloride (98-107) mmol/L BUN (9-20) mg/dL Glucose (74-99) mg/dL POC Glucose (mg/dL) 190 H 127 H (75-99) mg/dL Calcium (8.4-10.2) mg/dL 05/18/20 05/18/20 05/18/20 Range/Units 06:18 07:56 07:56 WBC 55.1 H* (3.8-10.6) k/uL RBC 2.57 L (4.30-5.90) m/uL Hgb 8.1 L (13.0-17.5) gm/dL Hct 26.5 L (39.0-53.0) % MCV 103.1 H (80.0-100.0) fL MCHC 30.5 L (31.0-37.0) g/dL Blast Cells % 1 H* % Neutrophils # (Manual) 45.10 H (1.3-7.7) k/uL Monocytes # (Manual) 2.20 H (0-1.0) k/uL Metamyelocytes # (Man) 1.10 H (0) k/uL Myelocytes # (Manual) 4.96 H (0) k/uL Blast Cells # (Man) 0.55 H (0) k/uL Potassium 3.0 L (3.5-5.1) mmol/L Chloride 111 H (98-107) mmol/L BUN 35 H (9-20) mg/dL Glucose 102 H (74-99) mg/dL POC Glucose (mg/dL) 200 H (75-99) mg/dL Calcium 7.2 L (8.4-10.2) mg/dL 05/18/20 Range/Units 11:56 WBC (3.8-10.6) k/uL RBC (4.30-5.90) m/uL Hgb (13.0-17.5) gm/dL Hct (39.0-53.0) % MCV (80.0-100.0) fL MCHC (31.0-37.0) g/dL Blast Cells % % Neutrophils # (Manual) (1.3-7.7) k/uL Monocytes # (Manual) (0-1.0) k/uL Metamyelocytes # (Man) (0) k/uL Myelocytes # (Manual) (0) k/uL Blast Cells # (Man) (0) k/uL Potassium (3.5-5.1) mmol/L Chloride (98-107) mmol/L BUN (9-20) mg/dL Glucose (74-99) mg/dL POC Glucose (mg/dL) 199 H (75-99) mg/dL Calcium (8.4-10.2) mg/dL Microbiology - Last 24 Hours (Table) 05/11/20 12:02 Blood Culture - Final Blood No Growth after 144 hours
[2020-05-18] MEDS: DILTIAZEM ORAL 60 MG TAB PO SCH ×2 (16:01→22:20)
[2020-05-18] MEDS: POTASSIUM CHLORIDE ER 20 MEQ TAB.ER PO SCH ×2 (16:01→17:20)
[2020-05-18] MEDS: FUROSEMIDE 20 MG TAB PO SCH (16:01)
--- NOTE | 2020-05-18 16:32 | P.PN ---
Subjective Progress Note Date: 05/18/20 Principal diagnosis: Sepsis Afebrile, On RA this am, mild increased effort with exertion. WBC still increased 55K, Platelets have recovered and hemoglobin stable at 8.1 He is still appearing acutely ill Objective - Vital Signs Vital signs: Vital Signs Temp 97.8 F 05/18/20 11:30 Pulse 66 05/18/20 11:33 Resp 16 05/18/20 11:33 BP 120/70 05/18/20 11:30 Pulse Ox 95 05/18/20 11:30 Intake & Output 05/17/20 05/18/20 05/18/20 18:59 06:59 18:59 Intake Total 490 80 240 Output Total 2000 500 Balance -1510 -420 240 Weight 95 kg 95.5 kg Intake: IV 80 0.9 80 Intake, IV Titration 100 Amount Piperacillin-Tazobactam 3 100 .375 gm In Sodium Chloride 0.9% 100 ml @ 25 mls/hr IVPB Q8H [facility] Rx#: [id number] Oral 390 240 Output: Urine 2000 500 Other: Voiding Method Indwelling Catheter Indwelling Catheter Indwelling Catheter - Exam General: Lethargic weak, comfortable appearance. Head: Normocephalic, atraumatic. Eyes: Symmetric. Pupils equal round. Ears: Symmetric. [place] Mouth: Dry Neck: Supple. Cardiac: Tachy Lungs: Diminished Abdomen: Soft active nontender. Extremities: Atrophy to muscular tone. + BLE edema Neurological: Mental status: cooperative, pleasant. Cranial nerves: Symmetric facial Motor: does not elevate them or move legs. Mobility: Wheelchair at baseline - Labs CBC & Chem 7: 05/18/20 07:56 05/18/20 07:56 Labs: Abnormal Lab Results - Last 24 Hours (Table) 05/17/20 05/17/20 05/17/20 Range/Units 16:39 20:02 20:04 WBC 57.9 H* (3.8-10.6) k/uL RBC 2.65 L (4.30-5.90) m/uL Hgb 8.7 L (13.0-17.5) gm/dL Hct 27.2 L (39.0-53.0) % MCV 102.5 H (80.0-100.0) fL MCHC (31.0-37.0) g/dL Blast Cells % 1 H* % Neutrophils # (Manual) 47.40 H (1.3-7.7) k/uL Metamyelocytes # (Man) 4.63 H (0) k/uL Myelocytes # (Manual) 4.05 H (0) k/uL Blast Cells # (Man) 0.58 H (0) k/uL Potassium (3.5-5.1) mmol/L Chloride (98-107) mmol/L BUN (9-20) mg/dL Glucose (74-99) mg/dL POC Glucose (mg/dL) 190 H 127 H (75-99) mg/dL Calcium (8.4-10.2) mg/dL 05/18/20 05/18/20 05/18/20 Range/Units 06:18 07:56 07:56 WBC 55.1 H* (3.8-10.6) k/uL RBC 2.57 L (4.30-5.90) m/uL Hgb 8.1 L (13.0-17.5) gm/dL Hct 26.5 L (39.0-53.0) % MCV 103.1 H (80.0-100.0) fL MCHC 30.5 L (31.0-37.0) g/dL Blast Cells % % Neutrophils # (Manual) (1.3-7.7) k/uL Metamyelocytes # (Man) (0) k/uL Myelocytes # (Manual) (0) k/uL Blast Cells # (Man) (0) k/uL Potassium 3.0 L (3.5-5.1) mmol/L Chloride 111 H (98-107) mmol/L BUN 35 H (9-20) mg/dL Glucose 102 H (74-99) mg/dL POC Glucose (mg/dL) 200 H (75-99) mg/dL Calcium 7.2 L (8.4-10.2) mg/dL Microbiology - Last 24 Hours (Table) 05/11/20 12:02 Blood Culture - Final Blood No Growth after 144 hours Assessment and Plan (1) Right leg DVT Current Visit: Yes Status: Acute Code(s): I82.401 - ACUTE EMBOLISM AND THOMBOS UNSP DEEP VEINS OF R LOW EXTREM SNOMED Code(s): 488377507 (2) Pancytopenia Current Visit: Yes Status: Acute Code(s): D61.818 - OTHER PANCYTOPENIA SNOMED Code(s): 574267081 (3) Small cell lung cancer Current Visit: Yes Status: Acute Priority: High Code(s): C34.90 - MALIGNANT NEOPLASM OF UNSP PART OF UNSP BRONCHUS OR LUNG SNOMED Code(s): 115733721 (4) Weakness Current Visit: Yes Status: Acute Code(s): R53.1 - WEAKNESS SNOMED Code(s): 95925755 Plan: Assessment and recommendations: Limited Stage Small Cell Lung Cancer: - Status Post cycle 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 - Heparin antibodies not detected at this time, can switch to DOAC po at discharge - repeat DIC work-up Physician Attest: mI have completed the full history and physical and agree with above dictation, dictated as a scribe
[2020-05-18 16:59] LABS: Glucose,Whole Blood 212 mg/dL (75-99)
[2020-05-18 17:12] LABS: INR 1.1 (<1.2); Partial Thromboplastin Time 24.7 sec (22.0-30.0)
[2020-05-18 19:58] LABS: Glucose,Whole Blood 273 mg/dL (75-99)
[2020-05-18] MEDS: TAMSULOSIN 0.4 MG CAP.ER.24H PO SCH (22:20)
[2020-05-18] MEDS: INSULIN DETEMIR (LEVEMIR) 100 UNIT/ML SYR SQ SCH (22:23)
[2020-05-18 23:21] LABS: HCT 23.1 % (39.0-53.0); HGB 7.1 gm/dL (13.0-17.5); Hypochromasia Slight; MCH 31.4 pg (25.0-35.0); MCHC 30.7 g/dL (31.0-37.0); MCV 102.1 fL (80.0-100.0); Macrocytosis Slight; Mean Platelet Volume 9.3; Platelet Count 214 k/uL (150-450); RBC 2.26 m/uL (4.30-5.90); RDW 14.8 % (11.5-15.5)
[2020-05-19 01:05] LABS: Band Neutrophils % 22 %; Lymphocytes # (M) 0.94 k/uL (1.0-4.8); Metamyelocytes # (M) 1.88 k/uL (0); Metamyelocytes % 4 %; Monocytes # (M) 0.94 k/uL (0-1.0); Myelocytes # (M) 2.82 k/uL (0); Myelocytes % 6 %; Neutrophils % (M) 62 %
[2020-05-19 01:06] LABS: Blast Cells # (M) 0.94 k/uL (0); Nucleated Red Blood Cells 0 /100 WBC (0-0); Total Cells Counted 100
[2020-05-19 06:19] LABS: Glucose,Whole Blood 132 mg/dL (75-99)
[2020-05-19] MEDS: INSULIN ASPART (NovoLOG) 100 UNIT/ML VIAL SQ SCH ×4 (06:59→21:30)
[2020-05-19] MEDS: SODIUM CHLORIDE 0.9% 1,000 ML IV SCH (07:00)
[2020-05-19] MEDS: DILTIAZEM ORAL 60 MG TAB PO SCH ×3 (07:52→20:47)
[2020-05-19] MEDS: FUROSEMIDE 20 MG TAB PO SCH ×2 (07:52→14:40)
[2020-05-19] MEDS: METOPROLOL TARTRATE 50 MG TAB PO SCH ×2 (07:52→20:46)
[2020-05-19] MEDS: NYSTATIN 100,000 UNIT/ML SUSP 500,000 UNIT/5 ML CUP PO SCH ×5 (07:54→21:42)
[2020-05-19] MEDS: MAG HYDROX/AL HYDROX/SIMETH 30 ML, LIDOCAINE VISCOUS 30 ML, diphenhydrAMINE ELIXIR 75 M... PO SCH ×12 (07:54→21:42)
[2020-05-19 08:00] LABS: Partial Thromboplastin Time 23.1 sec (22.0-30.0); Prothrombin Time 10.6 sec (9.0-12.0)
[2020-05-19 08:01] LABS: Anisocytosis Slight; HCT 28.2 % (39.0-53.0); Hypochromasia Slight; MCH 30.7 pg (25.0-35.0); MCHC 30.5 g/dL (31.0-37.0); MCV 100.7 fL (80.0-100.0); Macrocytosis Slight; Mean Platelet Volume 9.8; Platelet Count 232 k/uL (150-450); RDW 16.4 % (11.5-15.5); WBC 48.4 k/uL (3.8-10.6)
[2020-05-19 08:08] LABS: HGB 8.6 gm/dL (13.0-17.5)
[2020-05-19 08:32] LABS: Calcium 7.1 mg/dL (8.4-10.2); Magnesium 1.8 mg/dL (1.6-2.3); Potassium 3.2 mmol/L (3.5-5.1)
[2020-05-19 09:01] LABS: HCT 29.4 % (39.0-53.0); HGB 9.4 gm/dL (13.0-17.5); Hypochromasia Slight; MCH 31.9 pg (25.0-35.0); MCV 99.4 fL (80.0-100.0); Macrocytosis Slight; Platelet Count 252 k/uL (150-450); RBC 2.95 m/uL (4.30-5.90); RDW 15.9 % (11.5-15.5)
[2020-05-19] MEDS ORDERED: DESMOPRESSIN ACETATE 27 MCG in SODIUM CHLORIDE 0.9% 50 ML IV ONE (11:22)
--- NOTE | 2020-05-19 11:34 | P.PN ---
Subjective Progress Note Date: 05/19/20 Principal diagnosis: Sepsis Speaking with RN this am she is concerned as today there is more Hematuria, epistaxis that does clot, and now blood BM. blood thinners were DC on 05/17 Coags are stable, Fibrinogen is high and renal and liver function stable. The etiology of his bleeding is unclear as bloodwork is not revealing obvious signs. I spoke to pharmacy and confirmed he did receive Arixtra 05/11-05/16, One dose Eliquis on 05/16pm and m and then DC due to bleeding. Will check Factor Xa, Factor VII, Fibringen antigen and repeat cbc and coags today. One dose of DDAVP now please. As this appears he has recovered from Bacteremia. Although hematuria likely related to hemorrhagic cystitis, will repeat Urinalysis and Culture. I will add PPI IV BID as now with bloody stools concern of potential stress ulcer. The picture does not give definitive proof of any coagulation problem. Objective - Vital Signs Vital signs: Vital Signs Temp 98.2 F 05/19/20 08:00 Pulse 109 H 05/19/20 08:00 Resp 16 05/19/20 08:00 BP 121/73 05/19/20 08:00 Pulse Ox 95 05/19/20 08:00 Intake & Output 05/18/20 05/19/20 05/19/20 18:59 06:59 18:59 Intake Total 540 310 100 Output Total 900 1175 1 Balance -360 -865 99 Weight 89 kg Intake: Oral 540 100 Blood Product 310 Rc As-1 Unit 310 [id number] Output: Urine 900 1175 Stool 1 Other: Voiding Method Indwelling Catheter Indwelling Catheter Indwelling Catheter # Bowel Movements 1 - Exam Telemedicine visit with patient and discussion with RN and Pharmacy. Patient fatigue, no acute distress. - Labs CBC & Chem 7: 05/19/20 08:00 05/19/20 06:43 Labs: Abnormal Lab Results - Last 24 Hours (Table) 05/18/20 05/18/20 05/18/20 Range/Units 07:56 11:56 16:51 WBC (3.8-10.6) k/uL RBC (4.30-5.90) m/uL Hgb (13.0-17.5) gm/dL Hct (39.0-53.0) % MCV (80.0-100.0) fL MCHC (31.0-37.0) g/dL RDW (11.5-15.5) % Blast Cells % 1 H* % Neutrophils # (Manual) 45.10 H (1.3-7.7) k/uL Lymphocytes # (Manual) (1.0-4.8) k/uL Monocytes # (Manual) 2.20 H (0-1.0) k/uL Metamyelocytes # (Man) 1.10 H (0) k/uL Myelocytes # (Manual) 4.96 H (0) k/uL Blast Cells # (Man) 0.55 H (0) k/uL Fibrinogen 595 H (200-500) mg/dL Potassium (3.5-5.1) mmol/L Chloride (98-107) mmol/L BUN (9-20) mg/dL POC Glucose (mg/dL) 199 H (75-99) mg/dL Calcium (8.4-10.2) mg/dL Lactate Dehydrogenase (313-618) U/L Crossmatch 05/18/20 05/18/20 05/18/20 Range/Units 16:51 16:58 19:56 WBC (3.8-10.6) k/uL RBC (4.30-5.90) m/uL Hgb (13.0-17.5) gm/dL Hct (39.0-53.0) % MCV (80.0-100.0) fL MCHC (31.0-37.0) g/dL RDW (11.5-15.5) % Blast Cells % % Neutrophils # (Manual) (1.3-7.7) k/uL Lymphocytes # (Manual) (1.0-4.8) k/uL Monocytes # (Manual) (0-1.0) k/uL Metamyelocytes # (Man) (0) k/uL Myelocytes # (Manual) (0) k/uL Blast Cells # (Man) (0) k/uL Fibrinogen (200-500) mg/dL Potassium (3.5-5.1) mmol/L Chloride (98-107) mmol/L BUN (9-20) mg/dL POC Glucose (mg/dL) 212 H 273 H (75-99) mg/dL Calcium (8.4-10.2) mg/dL Lactate Dehydrogenase 2060 H (313-618) U/L Crossmatch 05/18/20 05/19/20 05/19/20 Range/Units 22:12 01:46 06:17 WBC 47.0 H (3.8-10.6) k/uL RBC 2.26 L (4.30-5.90) m/uL Hgb 7.1 L (13.0-17.5) gm/dL Hct 23.1 L (39.0-53.0) % MCV 102.1 H (80.0-100.0) fL MCHC 30.7 L (31.0-37.0) g/dL RDW (11.5-15.5) % Blast Cells % 2 H* % Neutrophils # (Manual) 39.40 H (1.3-7.7) k/uL Lymphocytes # (Manual) 0.94 L (1.0-4.8) k/uL Monocytes # (Manual) (0-1.0) k/uL Metamyelocytes # (Man) 1.88 H (0) k/uL Myelocytes # (Manual) 2.82 H (0) k/uL Blast Cells # (Man) 0.94 H (0) k/uL Fibrinogen (200-500) mg/dL Potassium (3.5-5.1) mmol/L Chloride (98-107) mmol/L BUN (9-20) mg/dL POC Glucose (mg/dL) 132 H (75-99) mg/dL Calcium (8.4-10.2) mg/dL Lactate Dehydrogenase (313-618) U/L Crossmatch See Detail 05/19/20 05/19/20 05/19/20 Range/Units 06:43 06:43 08:00 WBC 48.4 H 51.7 H* (3.8-10.6) k/uL RBC 2.80 L 2.95 L (4.30-5.90) m/uL Hgb 8.6 L D 9.4 L (13.0-17.5) gm/dL Hct 28.2 L 29.4 L (39.0-53.0) % MCV 100.7 H (80.0-100.0) fL MCHC 30.5 L (31.0-37.0) g/dL RDW 16.4 H 15.9 H (11.5-15.5) % Blast Cells % % Neutrophils # (Manual) (1.3-7.7) k/uL Lymphocytes # (Manual) (1.0-4.8) k/uL Monocytes # (Manual) (0-1.0) k/uL Metamyelocytes # (Man) (0) k/uL Myelocytes # (Manual) (0) k/uL Blast Cells # (Man) (0) k/uL Fibrinogen (200-500) mg/dL Potassium 3.2 L (3.5-5.1) mmol/L Chloride 110 H (98-107) mmol/L BUN 31 H (9-20) mg/dL POC Glucose (mg/dL) (75-99) mg/dL Calcium 7.1 L (8.4-10.2) mg/dL Lactate Dehydrogenase 1938 H (313-618) U/L Crossmatch Assessment and Plan (1) Right leg DVT Current Visit: Yes Status: Acute Code(s): I82.401 - ACUTE EMBOLISM AND THOMBOS UNSP DEEP VEINS OF R LOW EXTREM SNOMED Code(s): 118556829 (2) Pancytopenia Current Visit: Yes Status: Acute Code(s): D61.818 - OTHER PANCYTOPENIA SNOMED Code(s): 297905862 (3) Small cell lung cancer Current Visit: Yes Status: Acute Priority: High Code(s): C34.90 - MALIGNANT NEOPLASM OF UNSP PART OF UNSP BRONCHUS OR LUNG SNOMED Code(s): 492680878 (4) Weakness Current Visit: Yes Status: Acute Code(s): R53.1 - WEAKNESS SNOMED Code(s): 72603185 Plan: Assessment and recommendations: Limited Stage Small Cell Lung Cancer: - Status Post cycle one 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 Coags are stable, Fibrinogen is high and renal and liver function stable. The etiology of his bleeding is unclear as bloodwork is not revealing obvious signs. I spoke to pharmacy and confirmed he did receive Arixtra 05/11-05/16, One dose Eliquis on 11/4pm and 115am and then DC due to bleeding. Will check Factor Xa, Factor VII, Fibringen antigen and repeat cbc and coags today. One dose of DDAVP now please. As this appears he has recovered from Bacteremia. Although hematuria likely related to hemorrhagic cystitis, will repeat Urinalysis and Culture. I will add PPI IV BID as now with bloody stools concern of potential stress ulcer. The picture does not give definitive proof of any coagulation problem. Serial CBC and Coags Add PPI Discussed with Primary team
[2020-05-19 11:52] LABS: D-Dimer 1.43 mg/L FEU (<0.60); Partial Thromboplastin Time 24.4 sec (22.0-30.0); Prothrombin Time 10.5 sec (9.0-12.0)
[2020-05-19 11:55] LABS: Glucose,Whole Blood 97 mg/dL (75-99)
[2020-05-19] MEDS: POTASSIUM CHLORIDE ER 20 MEQ TAB.ER PO SCH ×2 (12:06→14:38)
[2020-05-19 12:07] LABS: Albumin 1.9 g/dL (3.5-5.0); Bilirubin, Delta 0.3 mg/dL (0.0-0.2); Bilirubin,Unconjugated 0.1 mg/dL (0.0-1.1); Total Bilirubin 0.4 mg/dL (0.2-1.3)
[2020-05-19 12:35] LABS: Band Neutrophils % 11 %; Lymphocytes # (M) 1.94 k/uL (1.0-4.8); Metamyelocytes # (M) 5.32 k/uL (0); Metamyelocytes % 11 %; Monocytes # (M) 0.97 k/uL (0-1.0); Myelocytes # (M) 5.81 k/uL (0); Myelocytes % 12 %; Neutrophils % (M) 59 %; Nucleated Red Blood Cells 0 /100 WBC (0-0); Poikilocytosis (M) Present; Polychromasia Present; Promyelocytes # (M) 0.48 k/uL (0); Promyelocytes % 1 %; Total Cells Counted 100
[2020-05-19 12:38] LABS: Band Neutrophils % 8 %; Metamyelocytes % 6 %; Myelocytes % 6 %; Neutrophils % (M) 75 %; Nucleated Red Blood Cells 1 /100 WBC (0-0); Total Cells Counted 100
[2020-05-19 12:39] LABS: Blast Cells # (M) 0.51 k/uL (0); Lymphocytes # (M) 1.02 k/uL (1.0-4.8); Metamyelocytes # (M) 3.07 k/uL (0); Monocytes # (M) 1.02 k/uL (0-1.0); Myelocytes # (M) 3.07 k/uL (0); Poikilocytosis (M) Present; Polychromasia Present; WBC 51.2 k/uL (3.8-10.6)
[2020-05-19] MEDS: PANTOPRAZOLE 40 MG/10 ML VIAL IVP SCH ×2 (14:39→23:30)
[2020-05-19 15:04] LABS: Anisocytosis Slight; HCT 27.6 % (39.0-53.0); HGB 8.6 gm/dL (13.0-17.5); Hypochromasia Slight; MCH 31.3 pg (25.0-35.0); MCHC 31.1 g/dL (31.0-37.0); MCV 100.8 fL (80.0-100.0); Macrocytosis Slight; Mean Platelet Volume 9.3; Platelet Count 259 k/uL (150-450); RBC 2.74 m/uL (4.30-5.90); RDW 16.6 % (11.5-15.5)
--- NOTE | 2020-05-19 15:06 | P.PN ---
Subjective Progress Note Date: 05/19/20 HISTORY OF PRESENT ILLNESS: Patient examined this morning at the bedside. Patient denies chest pain or pressure. He denies shortness of breath at the time of examination. Patient remains in A. fib with heart rate 100-112. He is currently on oral Cardizem and metoprolol which will remain the same and monitor over the next 24 hours. If heart rate remains elevated, medication adjustments will be made tomorrow. PHYSICAL EXAM: VITAL SIGNS: Afebrile, heart rate 109, blood pressure 121/73, pulse ox 95% on room air. GENERAL: Well-developed in no acute distress. NECK: Supple. No JVD or thyromegaly LUNGS: Respirations even and unlabored. Lungs diminished bilaterally. HEART: Irregular rate and rhythm. S1 and S2 heard. EXTREMITIES: Normal range of motion. No clubbing or cyanosis. Peripheral pulses intact. 2-3+ bilateral lower extremity edema ASSESSMENT: Septic shock, secondary to underlying Klebsiella pneumonia UTI and pseudomonas aeruginosa in the blood Metastatic small cell lung cancer Hyperkalemia Paroxysmal atrial fibrillation with RVR Acute DVT of right lower extremity Obstructive sleep apnea Hypertension Hyperlipidemia PLAN: Continue Lasix to 60 mg twice a day oral secondary to increased lower extremity edema Continue Lopressor 100 mg twice daily and Cardizem 60 mg 3 times a day for optimal heart rate control Continue additional cardiac medications Nurse practitioner note has been reviewed by physician. Signing provider agrees with the documented findings, assessment, and plan of care. Objective - Vital Signs Vital signs: Vital Signs Temp 98.2 F 05/19/20 08:00 Pulse 109 H 05/19/20 08:00 Resp 16 05/19/20 08:00 BP 121/73 05/19/20 08:00 Pulse Ox 95 05/19/20 08:00 Intake & Output 05/18/20 05/19/20 05/19/20 18:59 06:59 18:59 Intake Total 540 310 100 Output Total 900 1175 1 Balance -360 -865 99 Weight 89 kg Intake: Oral 540 100 Blood Product 310 Rc As-1 Unit 310 [id number] Output: Urine 900 1175 Stool 1 Other: Voiding Method Indwelling Catheter Indwelling Catheter Indwelling Catheter # Bowel Movements 1 - Labs CBC & Chem 7: 05/19/20 08:00 05/19/20 06:43 Labs: Abnormal Lab Results - Last 24 Hours (Table) 05/18/20 05/18/20 05/18/20 Range/Units 07:56 11:56 16:51 WBC (3.8-10.6) k/uL RBC (4.30-5.90) m/uL Hgb (13.0-17.5) gm/dL Hct (39.0-53.0) % MCV (80.0-100.0) fL MCHC (31.0-37.0) g/dL RDW (11.5-15.5) % Blast Cells % 1 H* % Neutrophils # (Manual) 45.10 H (1.3-7.7) k/uL Lymphocytes # (Manual) (1.0-4.8) k/uL Monocytes # (Manual) 2.20 H (0-1.0) k/uL Metamyelocytes # (Man) 1.10 H (0) k/uL Myelocytes # (Manual) 4.96 H (0) k/uL Blast Cells # (Man) 0.55 H (0) k/uL Fibrinogen 595 H (200-500) mg/dL Potassium (3.5-5.1) mmol/L Chloride (98-107) mmol/L BUN (9-20) mg/dL POC Glucose (mg/dL) 199 H (75-99) mg/dL Calcium (8.4-10.2) mg/dL Lactate Dehydrogenase (313-618) U/L Crossmatch 05/18/20 05/18/20 05/18/20 Range/Units 16:51 16:58 19:56 WBC (3.8-10.6) k/uL RBC (4.30-5.90) m/uL Hgb (13.0-17.5) gm/dL Hct (39.0-53.0) % MCV (80.0-100.0) fL MCHC (31.0-37.0) g/dL RDW (11.5-15.5) % Blast Cells % % Neutrophils # (Manual) (1.3-7.7) k/uL Lymphocytes # (Manual) (1.0-4.8) k/uL Monocytes # (Manual) (0-1.0) k/uL Metamyelocytes # (Man) (0) k/uL Myelocytes # (Manual) (0) k/uL Blast Cells # (Man) (0) k/uL Fibrinogen (200-500) mg/dL Potassium (3.5-5.1) mmol/L Chloride (98-107) mmol/L BUN (9-20) mg/dL POC Glucose (mg/dL) 212 H 273 H (75-99) mg/dL Calcium (8.4-10.2) mg/dL Lactate Dehydrogenase 2060 H (313-618) U/L Crossmatch 05/18/20 05/19/20 05/19/20 Range/Units 22:12 01:46 06:17 WBC 47.0 H (3.8-10.6) k/uL RBC 2.26 L (4.30-5.90) m/uL Hgb 7.1 L (13.0-17.5) gm/dL Hct 23.1 L (39.0-53.0) % MCV 102.1 H (80.0-100.0) fL MCHC 30.7 L (31.0-37.0) g/dL RDW (11.5-15.5) % Blast Cells % 2 H* % Neutrophils # (Manual) 39.40 H (1.3-7.7) k/uL Lymphocytes # (Manual) 0.94 L (1.0-4.8) k/uL Monocytes # (Manual) (0-1.0) k/uL Metamyelocytes # (Man) 1.88 H (0) k/uL Myelocytes # (Manual) 2.82 H (0) k/uL Blast Cells # (Man) 0.94 H (0) k/uL Fibrinogen (200-500) mg/dL Potassium (3.5-5.1) mmol/L Chloride (98-107) mmol/L BUN (9-20) mg/dL POC Glucose (mg/dL) 132 H (75-99) mg/dL Calcium (8.4-10.2) mg/dL Lactate Dehydrogenase (313-618) U/L Crossmatch See Detail 05/19/20 05/19/20 05/19/20 Range/Units 06:43 06:43 08:00 WBC 48.4 H 51.7 H* (3.8-10.6) k/uL RBC 2.80 L 2.95 L (4.30-5.90) m/uL Hgb 8.6 L D 9.4 L (13.0-17.5) gm/dL Hct 28.2 L 29.4 L (39.0-53.0) % MCV 100.7 H (80.0-100.0) fL MCHC 30.5 L (31.0-37.0) g/dL RDW 16.4 H 15.9 H (11.5-15.5) % Blast Cells % % Neutrophils # (Manual) (1.3-7.7) k/uL Lymphocytes # (Manual) (1.0-4.8) k/uL Monocytes # (Manual) (0-1.0) k/uL Metamyelocytes # (Man) (0) k/uL Myelocytes # (Manual) (0) k/uL Blast Cells # (Man) (0) k/uL Fibrinogen (200-500) mg/dL Potassium 3.2 L (3.5-5.1) mmol/L Chloride 110 H (98-107) mmol/L BUN 31 H (9-20) mg/dL POC Glucose (mg/dL) (75-99) mg/dL Calcium 7.1 L (8.4-10.2) mg/dL Lactate Dehydrogenase 1938 H (313-618) U/L Crossmatch
[2020-05-19 15:12] LABS: WBC 54.1 k/uL (3.8-10.6)
[2020-05-19 16:40] LABS: C Reactive Protein 31.8 mg/L (<10.0)
[2020-05-19 17:05] LABS: Band Neutrophils % 7 %; Lymphocytes # (M) 2.16 k/uL (1.0-4.8); Metamyelocytes # (M) 3.25 k/uL (0); Metamyelocytes % 6 %; Monocytes # (M) 1.62 k/uL (0-1.0); Myelocytes # (M) 2.71 k/uL (0); Myelocytes % 5 %; Neutrophils % (M) 77 %; Nucleated Red Blood Cells 0 /100 WBC (0-0); Total Cells Counted 200
[2020-05-19 17:06] LABS: Glucose,Whole Blood 90 mg/dL (75-99)
[2020-05-19 17:07] LABS: Poikilocytosis (M) Present; Polychromasia Present
[2020-05-19] MEDS: FLUCONAZOLE 100 MG TAB PO SCH (17:36)
[2020-05-19 20:11] LABS: Glucose,Whole Blood 139 mg/dL (75-99)
[2020-05-19] MEDS: CEFEPIME 2 GM in SODIUM CHLORIDE 0.9% 100 ML IVPB SCH (20:46)
[2020-05-19] MEDS: INSULIN DETEMIR (LEVEMIR) 100 UNIT/ML SYR SQ SCH (20:47)
[2020-05-19] MEDS: TAMSULOSIN 0.4 MG CAP.ER.24H PO SCH (20:47)
[2020-05-19 22:06] LABS: Appearance,Urine Cloudy (Clear); Bilirubin,Urine Negative (Negative); Blood,Urine Large (Negative); Color,Urine Red; Glucose,Urine (UA) Negative (Negative); Ketones,Urine Negative (Negative); Leukocyte Esterase,Urine Small (Negative); Nitrite,Urine Negative (Negative); PH, Urine 5.5 (5.0-8.0); Protein,Urine 2+ (Negative); RBC,Urine >182 /hpf (0-5); Specific Gravity,Urine 1.013 (1.001-1.035); Urobilinogen,Urine <2.0 mg/dL (<2.0); WBC,Urine 110 /hpf (0-5)
[2020-05-19 22:44] LABS: Anisocytosis Slight; HCT 23.4 % (39.0-53.0); HGB 7.4 gm/dL (13.0-17.5); Hypochromasia Slight; MCH 30.9 pg (25.0-35.0); MCHC 31.5 g/dL (31.0-37.0); MCV 98.2 fL (80.0-100.0); Macrocytosis Slight; Mean Platelet Volume 8.9; Platelet Count 248 k/uL (150-450); RBC 2.38 m/uL (4.30-5.90); RDW 16.6 % (11.5-15.5); WBC 45.1 k/uL (3.8-10.6)
--- NOTE | 2020-05-19 23:22 | P.CONS ---
History of Present Illness - Reason for Consult Consult date: 05/19/20 Elevated WBC Requesting physician: Priscilla Guerrero - Chief Complaint Weakness x few days - History of Present Illness Patient is a 64 year male with a past medical history significant for lung cancer presenting to the ER at [facility] on 05/10/2020 for evaluation of generalized weakness and difficulty breathing in this patient who recently completed his chemotherapy, apparently the patient is progressively getting worse since his last chemo and he was noticed to have bruising in his upper extremities oral intake has been poor, on arrival to the ER the patient did have low-grade fever off 100 Fahrenheit and no fever has been recorded since then, patient on admission did have a leukopenia with a white count of 0.8 subsequently the patient has received Neulasta with the progressive increases in white count and was up to 60,000 on 05/17/2020, the patient white count seemed to have shown some upper and none were trained with a white count this morning of 51.2 subsequent recheck 54.1, patient did have a positive UA on admission which grew Klebsiella pneumoniae and the patient did have a positive blood culture with Pseudomonas aeruginosa repeat blood culture on 05/11/2020 has been negative, patient is currently off antibiotic therapy more likely cefepime falling off after 7 days, patient has also developed significant hematuria as well as bleeding per rectum patient is complaining of feeling weak and tired denies having any chest pain minimal cough nausea but no vomiting Review of Systems Positive point has been mentioned in the HPI rest of the systems are negative Past Medical History Past Medical History: Cancer, Diabetes Mellitus, Hearing Disorder / Deafness, Hyperlipidemia, Hypertension, Osteoarthritis (OA) Additional Past Medical History / Comment(s): Enlarged prostate. I have a disease, not sure of the name but causes numbness, tingling and weakness in legs and arms, use a wheelcahir. No CPAP use. Tinnitus. Lung CA 04/2020 History of Any Multi-Drug Resistant Organisms: None Reported Past Surgical History: No Surgical Hx Reported Additional Past Surgical History / Comment(s): "Had some muscle taken out of left thigh area for testing". Lung biopsy Past Anesthesia/Blood Transfusion Reactions: No Reported Reaction Past Psychological History: No Psychological Hx Reported Smoking Status: Never smoker Past Alcohol Use History: None Reported Past Drug Use History: None Reported - Past Family History Mother Family Medical History: No Reported History Medications and Allergies Home Medications Medication Instructions Recorded Confirmed Type Tamsulosin HCl [Flomax] 0.4 mg PO HS 01/26/20 05/10/20 History Insulin Glargine [Lantus] 20 unit SQ HS 04/10/20 05/10/20 History Sennosides [Senna] 8.6 mg PO AC-BID 04/10/20 05/10/20 History Losartan Potassium 100 mg PO DAILY 04/25/20 05/10/20 History amLODIPine [Norvasc] 5 mg PO DAILY 04/25/20 05/10/20 History carvediloL [Coreg*] 12.5 mg PO AC-BID 04/25/20 05/10/20 History Spironolactone [Aldactone] 50 mg PO BID #120 tab 04/28/20 05/10/20 Rx Fluconazole [Diflucan] See Taper PO DIRECTED 05/10/20 05/10/20 History Mouth Compound Mix 5 ml PO QID 05/10/20 05/10/20 History Potassium Chloride ER [K-Dur 20] 40 meq PO BID 05/10/20 05/10/20 History polyethylene glycoL 3350 [Miralax] 17 gm PO DAILY PRN 05/10/20 05/10/20 History Allergies Allergy/AdvReac Type Severity Reaction Status Date / Time Penicillins Allergy Rash/Hives Verified 05/10/20 14:42 Physical Exam Vitals: Vital Signs Temp Pulse Pulse Resp BP BP Pulse Ox 05/19/20 14:45 98.1 F 71 16 108/69 94 L 05/19/20 12:30 100/69 05/19/20 12:25 101/66 05/19/20 12:00 98.4 F 88 16 94/50 93 L 05/19/20 08:00 98.2 F 109 H 16 121/73 95 05/19/20 06:36 98.4 F 112 H 19 112/80 94 L 05/19/20 06:35 98.4 F 112 H 19 112/80 94 L 05/19/20 04:02 98.6 F 98 20 106/71 05/19/20 03:32 98.8 F 96 18 107/66 05/19/20 03:22 97.8 F 108 H 18 103/62 05/19/20 00:00 98.4 F 101 H 22 101/62 95 05/18/20 20:00 98.3 F 112 H 20 113/63 98 05/18/20 19:41 20 05/18/20 19:38 98.4 F 65 20 94/55 97 05/18/20 16:00 110 H 18 05/18/20 15:39 98.2 F 110 H 18 108/71 98 Intake and Output 05/19/20 05/19/20 05/19/20 06:59 14:59 22:59 Intake Total 310 210 Output Total 500 601 Balance -190 -391 Intake: Intake, IV Titration 110 Amount Desmopressin Acetate 27 50 mcg In Sodium Chloride 0. 9% 50 ml @ 200 mls/hr IV ONCE ONE Rx#:[id number] IV Fluid Continuation 1, 60 000 ml @ 0 mls/hr IV .STK -MED ONE Rx#:[id number] Oral 100 Blood Product 310 Rc As-1 Unit 310 [id number] Output: Urine 500 600 Stool 1 Other: Voiding Method Indwelling Catheter Indwelling Catheter # Bowel Movements 2 Weight 89 kg GENERAL DESCRIPTION: An elderly male lying in bed, no distress. No tachypnea or accessory muscle of respiration use. HEENT: Shows Pallor , no scleral icterus. Oral mucous membrane is dry. No pharyngeal erythema or thrush NECK: Trachea central, no thyromegaly. LUNGS: Unlabored breathing. Clear to auscultation anteriorly. No wheeze or crackle. HEART: S1, S2, regular rate and rhythm. No loud murmur ABDOMEN: Soft, no tenderness , guarding or rigidity, no organomegaly EXTREMITIES: No edema of feet. SKIN: Multiple skin bruises NEUROLOGICAL: The patient is awake, alert, oriented x3, mood and affect normal. Results CBC & Chem 7: 05/19/20 22:18 05/19/20 06:43 Labs: Abnormal Lab Results - Last 24 Hours (Table) 05/18/20 05/18/20 05/18/20 Range/Units 16:51 16:51 16:58 WBC (3.8-10.6) k/uL RBC (4.30-5.90) m/uL Hgb (13.0-17.5) gm/dL Hct (39.0-53.0) % MCV (80.0-100.0) fL MCHC (31.0-37.0) g/dL RDW (11.5-15.5) % Blast Cells % % Neutrophils # (Manual) (1.3-7.7) k/uL Lymphocytes # (Manual) (1.0-4.8) k/uL Monocytes # (Manual) (0-1.0) k/uL Metamyelocytes # (Man) (0) k/uL Myelocytes # (Manual) (0) k/uL Promyelocytes # (Man) (0) k/uL Blast Cells # (Man) (0) k/uL Nucleated RBCs (0-0) /100 WBC Fibrinogen 595 H (200-500) mg/dL D-Dimer (<0.60) mg/L FEU Potassium (3.5-5.1) mmol/L Chloride (98-107) mmol/L BUN (9-20) mg/dL POC Glucose (mg/dL) 212 H (75-99) mg/dL Calcium (8.4-10.2) mg/dL Delta Bilirubin (0.0-0.2) mg/dL Lactate Dehydrogenase 2060 H (313-618) U/L Total Protein (6.3-8.2) g/dL Albumin (3.5-5.0) g/dL Crossmatch 05/18/20 05/18/20 05/19/20 Range/Units 19:56 22:12 01:46 WBC 47.0 H (3.8-10.6) k/uL RBC 2.26 L (4.30-5.90) m/uL Hgb 7.1 L (13.0-17.5) gm/dL Hct 23.1 L (39.0-53.0) % MCV 102.1 H (80.0-100.0) fL MCHC 30.7 L (31.0-37.0) g/dL RDW (11.5-15.5) % Blast Cells % 2 H* % Neutrophils # (Manual) 39.40 H (1.3-7.7) k/uL Lymphocytes # (Manual) 0.94 L (1.0-4.8) k/uL Monocytes # (Manual) (0-1.0) k/uL Metamyelocytes # (Man) 1.88 H (0) k/uL Myelocytes # (Manual) 2.82 H (0) k/uL Promyelocytes # (Man) (0) k/uL Blast Cells # (Man) 0.94 H (0) k/uL Nucleated RBCs (0-0) /100 WBC Fibrinogen (200-500) mg/dL D-Dimer (<0.60) mg/L FEU Potassium (3.5-5.1) mmol/L Chloride (98-107) mmol/L BUN (9-20) mg/dL POC Glucose (mg/dL) 273 H (75-99) mg/dL Calcium (8.4-10.2) mg/dL Delta Bilirubin (0.0-0.2) mg/dL Lactate Dehydrogenase (313-618) U/L Total Protein (6.3-8.2) g/dL Albumin (3.5-5.0) g/dL Crossmatch See Detail 05/19/20 05/19/20 05/19/20 Range/Units 06:17 06:43 06:43 WBC 48.4 H (3.8-10.6) k/uL RBC 2.80 L (4.30-5.90) m/uL Hgb 8.6 L D (13.0-17.5) gm/dL Hct 28.2 L (39.0-53.0) % MCV 100.7 H (80.0-100.0) fL MCHC 30.5 L (31.0-37.0) g/dL RDW 16.4 H (11.5-15.5) % Blast Cells % % Neutrophils # (Manual) 33.80 H (1.3-7.7) k/uL Lymphocytes # (Manual) (1.0-4.8) k/uL Monocytes # (Manual) (0-1.0) k/uL Metamyelocytes # (Man) 5.32 H (0) k/uL Myelocytes # (Manual) 5.81 H (0) k/uL Promyelocytes # (Man) 0.48 H (0) k/uL Blast Cells # (Man) (0) k/uL Nucleated RBCs (0-0) /100 WBC Fibrinogen (200-500) mg/dL D-Dimer (<0.60) mg/L FEU Potassium 3.2 L (3.5-5.1) mmol/L Chloride 110 H (98-107) mmol/L BUN 31 H (9-20) mg/dL POC Glucose (mg/dL) 132 H (75-99) mg/dL Calcium 7.1 L (8.4-10.2) mg/dL Delta Bilirubin (0.0-0.2) mg/dL Lactate Dehydrogenase 1938 H (313-618) U/L Total Protein (6.3-8.2) g/dL Albumin (3.5-5.0) g/dL Crossmatch 05/19/20 05/19/20 05/19/20 Range/Units 08:00 11:09 11:09 WBC 51.2 H* (3.8-10.6) k/uL RBC 2.95 L (4.30-5.90) m/uL Hgb 9.4 L (13.0-17.5) gm/dL Hct 29.4 L (39.0-53.0) % MCV (80.0-100.0) fL MCHC (31.0-37.0) g/dL RDW 15.9 H (11.5-15.5) % Blast Cells % 1 H* % Neutrophils # (Manual) 42.40 H (1.3-7.7) k/uL Lymphocytes # (Manual) (1.0-4.8) k/uL Monocytes # (Manual) 1.02 H (0-1.0) k/uL Metamyelocytes # (Man) 3.07 H (0) k/uL Myelocytes # (Manual) 3.07 H (0) k/uL Promyelocytes # (Man) (0) k/uL Blast Cells # (Man) 0.51 H (0) k/uL Nucleated RBCs 1 H (0-0) /100 WBC Fibrinogen 527 H (200-500) mg/dL D-Dimer 1.43 H (<0.60) mg/L FEU Potassium (3.5-5.1) mmol/L Chloride (98-107) mmol/L BUN (9-20) mg/dL POC Glucose (mg/dL) (75-99) mg/dL Calcium (8.4-10.2) mg/dL Delta Bilirubin 0.3 H (0.0-0.2) mg/dL Lactate Dehydrogenase (313-618) U/L Total Protein 4.0 L (6.3-8.2) g/dL Albumin 1.9 L (3.5-5.0) g/dL Crossmatch 05/19/20 Range/Units 14:35 WBC (3.8-10.6) k/uL RBC 2.74 L (4.30-5.90) m/uL Hgb 8.6 L (13.0-17.5) gm/dL Hct 27.6 L (39.0-53.0) % MCV 100.8 H (80.0-100.0) fL MCHC (31.0-37.0) g/dL RDW 16.6 H (11.5-15.5) % Blast Cells % % Neutrophils # (Manual) (1.3-7.7) k/uL Lymphocytes # (Manual) (1.0-4.8) k/uL Monocytes # (Manual) (0-1.0) k/uL Metamyelocytes # (Man) (0) k/uL Myelocytes # (Manual) (0) k/uL Promyelocytes # (Man) (0) k/uL Blast Cells # (Man) (0) k/uL Nucleated RBCs (0-0) /100 WBC Fibrinogen (200-500) mg/dL D-Dimer (<0.60) mg/L FEU Potassium (3.5-5.1) mmol/L Chloride (98-107) mmol/L BUN (9-20) mg/dL POC Glucose (mg/dL) (75-99) mg/dL Calcium (8.4-10.2) mg/dL Delta Bilirubin (0.0-0.2) mg/dL Lactate Dehydrogenase (313-618) U/L Total Protein (6.3-8.2) g/dL Albumin (3.5-5.0) g/dL Crossmatch Assessment and Plan Assessment: 1- patient with leukocytosis which is likely multifactorial in this patient seems to have significant bleeding per rectum as well as hematuria and multiple bruises, could be reactive to active bleeding at multiple sites, however this patient also have Pseudomonas bacteremia for which she has received only one week of antibiotic therapy and may not have been enough, plus minus a component of oropharyngeal candidiasis contributing to this elevated white count 2-penicillin ALLERGY that limit the number of antibiotics safe to use (1) Leukocytosis Current Visit: Yes Status: Acute Code(s): D72.829 - ELEVATED WHITE BLOOD CELL COUNT, UNSPECIFIED SNOMED Code(s): 203630966 Plan: 1- blood cultures will be repeated , will also check UA culture and chest x-ray 2-we will start the patient on cefepime 2 g every 12 hours 3-Diflucan 200 mg by mouth daily We will follow on clinical condition and cultures to further adjust medication if needed Thank you for this consultation will follow this patient with you Time with Patient: Greater than 30
[2020-05-19 23:54] LABS: Band Neutrophils % 3 %; Lymphocytes # (M) 3.61 k/uL (1.0-4.8); Metamyelocytes # (M) 0.45 k/uL (0); Metamyelocytes % 1 %; Monocytes # (M) 3.16 k/uL (0-1.0); Myelocytes % 2 %; Neutrophils % (M) 77 %; Nucleated Red Blood Cells 0 /100 WBC (0-0); Polychromasia Present; Total Cells Counted 200
[2020-05-20 00:59] LABS: Anisocytosis Slight; HCT 22.4 % (39.0-53.0); Hypochromasia Slight; MCH 30.6 pg (25.0-35.0); MCHC 31.4 g/dL (31.0-37.0); MCV 97.7 fL (80.0-100.0); Mean Platelet Volume 8.6; Platelet Count 224 k/uL (150-450); RDW 16.6 % (11.5-15.5); WBC 42.6 k/uL (3.8-10.6)
[2020-05-20] MEDS ORDERED: FUROSEMIDE 10 MG/ML 4 ML VIAL IV STA (01:07)
[2020-05-20] MEDS: HYDROcodone/APAP 5-325MG 1 EACH TAB PO PRN ×3 (04:50→20:15)
[2020-05-20 06:06] LABS: Glucose,Whole Blood 152 mg/dL (75-99)
[2020-05-20] MEDS: INSULIN ASPART (NovoLOG) 100 UNIT/ML VIAL SQ SCH ×4 (06:34→21:00)
[2020-05-20] MEDS: SODIUM CHLORIDE 0.9% 1,000 ML IV SCH (06:53)
--- NOTE | 2020-05-20 07:34 | XR ---
EXAMINATION TYPE: XR chest 1V portable DATE OF EXAM: 05/20/2020 HISTORY: Shortness of breath. COMPARISON: 05/15/2020 TECHNIQUE: Single view of the chest is submitted. FINDINGS: Demonstrated are scattered senescent parenchymal change. Left lower lobe infiltrate persists. No significant change appreciated. The heart is stable. Hilar and mediastinal structures are within normal limits. Degenerative changes are seen of the dorsal spine. IMPRESSION: 1. Left lower lobe infiltrate persists. No significant change appreciated.
[2020-05-20 07:38] LABS: Anisocytosis Slight; HCT 31.3 % (39.0-53.0); MCH 30.3 pg (25.0-35.0); MCHC 31.4 g/dL (31.0-37.0); MCV 96.5 fL (80.0-100.0); Macrocytosis Slight; Mean Platelet Volume 8.8; Platelet Count 239 k/uL (150-450); Poikilocytosis Slight; RBC 3.24 m/uL (4.30-5.90); RDW 16.8 % (11.5-15.5); WBC 38.3 k/uL (3.8-10.6)
[2020-05-20] MEDS: NYSTATIN 100,000 UNIT/ML SUSP 500,000 UNIT/5 ML CUP PO SCH ×4 (08:00→20:19)
[2020-05-20] MEDS: MAG HYDROX/AL HYDROX/SIMETH 30 ML, LIDOCAINE VISCOUS 30 ML, diphenhydrAMINE ELIXIR 75 M... PO SCH ×12 (08:01→20:19)
[2020-05-20 08:02] LABS: HGB 9.8 gm/dL (13.0-17.5)
[2020-05-20] MEDS: METOPROLOL TARTRATE 50 MG TAB PO SCH ×2 (08:09→20:07)
[2020-05-20] MEDS: DILTIAZEM ORAL 60 MG TAB PO SCH ×3 (08:11→20:07)
[2020-05-20] MEDS: FUROSEMIDE 20 MG TAB PO SCH ×2 (08:12→15:42)
--- NOTE | 2020-05-20 08:12 | P.CONS ---
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 Patient recently completed chemotherapy for treatment of his malignancy. The patient was found to have DVT on presentation and is status post IVC filter placement. The patient has had issues with bleeding since presentation. Therefore complaints of gross hematuria and epistaxis. The patient subsequently also developed some bright red blood per rectum. He denies any abdominal pain, nausea or vomiting. Bleeding has been red in color and painless. He does report a history of hemorrhoidal disease in the past. He believes his last colonoscopy was approximately 6 years ago and normal per his recollection. He states his last bowel movement was brown in color and nonbloody. The patient had previously been started on anticoagulation therapy which was discontinueddue to the development of bleeding. Hemoglobin this morning 9.4 from 8.6 yesterday. Review of Systems REVIEW OF SYSTEMS: CONSTITUTIONAL: Denies any fevers, chills,the patient has been significantly fatigued. CARDIOVASCULAR: Denies any chest pain, palpitations high or low blood pressures, he is being treated for atrial fibrillation. RESPIRATORY: Denies any hemoptysis or cough continues to have some shortness of breath. GENITOURINARY: No dysuria with the patient has been having hematuria. MUSCULOSKELETAL: No focal weakness reported. SKIN: Denies any new rashes or lesions, jaundice or pallor. PSYCHIATRIC: Denies any depression or anxiety. NEUROLOGY: Denies headache, denies any new focal deficits. EARS/NOSE/THROAT: No recent hearing change, congestion, nasal discharge or sore throat. EYES: No pain in eyes, discharge or change in vision. GASTROINTESTINAL: As per HPI. Past Medical History Past Medical History: Cancer, Diabetes Mellitus, Hearing Disorder / Deafness, Hyperlipidemia, Hypertension, Osteoarthritis (OA) Additional Past Medical History / Comment(s): Enlarged prostate. I have a disease, not sure of the name but causes numbness, tingling and weakness in legs and arms, use a wheelcahir. No CPAP use. Tinnitus. Lung CA 04/2020 History of Any Multi-Drug Resistant Organisms: None Reported Past Surgical History: No Surgical Hx Reported Additional Past Surgical History / Comment(s): "Had some muscle taken out of left thigh area for testing". Lung biopsy Past Anesthesia/Blood Transfusion Reactions: No Reported Reaction Past Psychological History: No Psychological Hx Reported Smoking Status: Never smoker Past Alcohol Use History: None Reported Past Drug Use History: None Reported - Past Family History Mother Family Medical History: No Reported History Medications and Allergies Home Medications Medication Instructions Recorded Confirmed Type Tamsulosin HCl [Flomax] 0.4 mg PO HS 01/26/20 05/10/20 History Insulin Glargine [Lantus] 20 unit SQ HS 04/10/20 05/10/20 History Sennosides [Senna] 8.6 mg PO AC-BID 04/10/20 05/10/20 History Losartan Potassium 100 mg PO DAILY 04/25/20 05/10/20 History amLODIPine [Norvasc] 5 mg PO DAILY 04/25/20 05/10/20 History carvediloL [Coreg*] 12.5 mg PO AC-BID 04/25/20 05/10/20 History Spironolactone [Aldactone] 50 mg PO BID #120 tab 04/28/20 05/10/20 Rx Fluconazole [Diflucan] See Taper PO DIRECTED 05/10/20 05/10/20 History Mouth Compound Mix 5 ml PO QID 05/10/20 05/10/20 History Potassium Chloride ER [K-Dur 20] 40 meq PO BID 05/10/20 05/10/20 History polyethylene glycoL 3350 [Miralax] 17 gm PO DAILY PRN 05/10/20 05/10/20 History Allergies Allergy/AdvReac Type Severity Reaction Status Date / Time Penicillins Allergy Rash/Hives Verified 05/10/20 14:42 Physical Exam Vitals: Vital Signs Temp Pulse Pulse Resp BP BP Pulse Ox 05/19/20 08:00 98.2 F 109 H 16 121/73 95 05/19/20 06:36 98.4 F 112 H 19 112/80 94 L 05/19/20 06:35 98.4 F 112 H 19 112/80 94 L 05/19/20 04:02 98.6 F 98 20 106/71 05/19/20 03:32 98.8 F 96 18 107/66 05/19/20 03:22 97.8 F 108 H 18 103/62 05/19/20 00:00 98.4 F 101 H 22 101/62 95 05/18/20 20:00 98.3 F 112 H 20 113/63 98 05/18/20 19:41 20 05/18/20 19:38 98.4 F 65 20 94/55 97 05/18/20 16:00 110 H 18 05/18/20 15:39 98.2 F 110 H 18 108/71 98 Intake and Output 05/18/20 05/19/20 05/19/20 22:59 06:59 14:59 Intake Total 120 310 100 Output Total 1075 500 1 Balance -955 -190 99 Intake: Oral 120 100 Blood Product 310 Rc As-1 Unit 310 [id number] Output: Urine 1075 500 Stool 1 Other: Voiding Method Indwelling Catheter Indwelling Catheter Indwelling Catheter # Bowel Movements 1 Weight 89 kg On physical examination, patient appears comfortable in no apparent distress. HEAD: Normocephalic, atraumatic. EYES: No scleral icterus. No conjunctival injection. MOUTH: No lesions, tongue midline. NECK: Trachea midline, no gross abnormalities. ABDOMEN: Soft, nontender to palpation. Bowel sounds are positive. No org anomegaly. No guarding or rigidity. EXTREMITIES: No pedal edema. SKIN: No rashes, no jaundice. NEUROLOGIC: Alert and oriented x3. No focal deficits. Results CBC & Chem 7: 05/20/20 00:49 05/19/20 06:43 Labs: Abnormal Lab Results - Last 24 Hours (Table) 05/18/20 05/18/20 05/18/20 Range/Units 07:56 16:51 16:51 WBC (3.8-10.6) k/uL RBC (4.30-5.90) m/uL Hgb (13.0-17.5) gm/dL Hct (39.0-53.0) % MCV (80.0-100.0) fL MCHC (31.0-37.0) g/dL RDW (11.5-15.5) % Blast Cells % 1 H* % Neutrophils # (Manual) 45.10 H (1.3-7.7) k/uL Lymphocytes # (Manual) (1.0-4.8) k/uL Monocytes # (Manual) 2.20 H (0-1.0) k/uL Metamyelocytes # (Man) 1.10 H (0) k/uL Myelocytes # (Manual) 4.96 H (0) k/uL Blast Cells # (Man) 0.55 H (0) k/uL Fibrinogen 595 H (200-500) mg/dL D-Dimer (<0.60) mg/L FEU Potassium (3.5-5.1) mmol/L Chloride (98-107) mmol/L BUN (9-20) mg/dL POC Glucose (mg/dL) (75-99) mg/dL Calcium (8.4-10.2) mg/dL Delta Bilirubin (0.0-0.2) mg/dL Lactate Dehydrogenase 2060 H (313-618) U/L Total Protein (6.3-8.2) g/dL Albumin (3.5-5.0) g/dL Crossmatch 05/18/20 05/18/20 05/18/20 Range/Units 16:58 19:56 22:12 WBC 47.0 H (3.8-10.6) k/uL RBC 2.26 L (4.30-5.90) m/uL Hgb 7.1 L (13.0-17.5) gm/dL Hct 23.1 L (39.0-53.0) % MCV 102.1 H (80.0-100.0) fL MCHC 30.7 L (31.0-37.0) g/dL RDW (11.5-15.5) % Blast Cells % 2 H* % Neutrophils # (Manual) 39.40 H (1.3-7.7) k/uL Lymphocytes # (Manual) 0.94 L (1.0-4.8) k/uL Monocytes # (Manual) (0-1.0) k/uL Metamyelocytes # (Man) 1.88 H (0) k/uL Myelocytes # (Manual) 2.82 H (0) k/uL Blast Cells # (Man) 0.94 H (0) k/uL Fibrinogen (200-500) mg/dL D-Dimer (<0.60) mg/L FEU Potassium (3.5-5.1) mmol/L Chloride (98-107) mmol/L BUN (9-20) mg/dL POC Glucose (mg/dL) 212 H 273 H (75-99) mg/dL Calcium (8.4-10.2) mg/dL Delta Bilirubin (0.0-0.2) mg/dL Lactate Dehydrogenase (313-618) U/L Total Protein (6.3-8.2) g/dL Albumin (3.5-5.0) g/dL Crossmatch 05/19/20 05/19/20 05/19/20 Range/Units 01:46 06:17 06:43 WBC (3.8-10.6) k/uL RBC (4.30-5.90) m/uL Hgb (13.0-17.5) gm/dL Hct (39.0-53.0) % MCV (80.0-100.0) fL MCHC (31.0-37.0) g/dL RDW (11.5-15.5) % Blast Cells % % Neutrophils # (Manual) (1.3-7.7) k/uL Lymphocytes # (Manual) (1.0-4.8) k/uL Monocytes # (Manual) (0-1.0) k/uL Metamyelocytes # (Man) (0) k/uL Myelocytes # (Manual) (0) k/uL Blast Cells # (Man) (0) k/uL Fibrinogen (200-500) mg/dL D-Dimer (<0.60) mg/L FEU Potassium 3.2 L (3.5-5.1) mmol/L Chloride 110 H (98-107) mmol/L BUN 31 H (9-20) mg/dL POC Glucose (mg/dL) 132 H (75-99) mg/dL Calcium 7.1 L (8.4-10.2) mg/dL Delta Bilirubin (0.0-0.2) mg/dL Lactate Dehydrogenase 1938 H (313-618) U/L Total Protein (6.3-8.2) g/dL Albumin (3.5-5.0) g/dL Crossmatch See Detail 05/19/20 05/19/20 05/19/20 Range/Units 06:43 08:00 11:09 WBC 48.4 H 51.7 H* (3.8-10.6) k/uL RBC 2.80 L 2.95 L (4.30-5.90) m/uL Hgb 8.6 L D 9.4 L (13.0-17.5) gm/dL Hct 28.2 L 29.4 L (39.0-53.0) % MCV 100.7 H (80.0-100.0) fL MCHC 30.5 L (31.0-37.0) g/dL RDW 16.4 H 15.9 H (11.5-15.5) % Blast Cells % % Neutrophils # (Manual) (1.3-7.7) k/uL Lymphocytes # (Manual) (1.0-4.8) k/uL Monocytes # (Manual) (0-1.0) k/uL Metamyelocytes # (Man) (0) k/uL Myelocytes # (Manual) (0) k/uL Blast Cells # (Man) (0) k/uL Fibrinogen 527 H (200-500) mg/dL D-Dimer 1.43 H (<0.60) mg/L FEU Potassium (3.5-5.1) mmol/L Chloride (98-107) mmol/L BUN (9-20) mg/dL POC Glucose (mg/dL) (75-99) mg/dL Calcium (8.4-10.2) mg/dL Delta Bilirubin (0.0-0.2) mg/dL Lactate Dehydrogenase (313-618) U/L Total Protein (6.3-8.2) g/dL Albumin (3.5-5.0) g/dL Crossmatch 05/19/20 Range/Units 11:09 WBC (3.8-10.6) k/uL RBC (4.30-5.90) m/uL Hgb (13.0-17.5) gm/dL Hct (39.0-53.0) % MCV (80.0-100.0) fL MCHC (31.0-37.0) g/dL RDW (11.5-15.5) % Blast Cells % % Neutrophils # (Manual) (1.3-7.7) k/uL Lymphocytes # (Manual) (1.0-4.8) k/uL Monocytes # (Manual) (0-1.0) k/uL Metamyelocytes # (Man) (0) k/uL Myelocytes # (Manual) (0) k/uL Blast Cells # (Man) (0) k/uL Fibrinogen (200-500) mg/dL D-Dimer (<0.60) mg/L FEU Potassium (3.5-5.1) mmol/L Chloride (98-107) mmol/L BUN (9-20) mg/dL POC Glucose (mg/dL) (75-99) mg/dL Calcium (8.4-10.2) mg/dL Delta Bilirubin 0.3 H (0.0-0.2) mg/dL Lactate Dehydrogenase (313-618) U/L Total Protein 4.0 L (6.3-8.2) g/dL Albumin 1.9 L (3.5-5.0) g/dL Crossmatch Chest x-ray: report reviewed (no obvious heart failure on chest x-ray) Assessment and Plan (1) GI bleed Narrative/Plan: 64-year-old male with multiple medical comorbidities including small cell lung cancer recently treated with chemotherapy who presented for shortness of breath and weakness. Patient has been treated for a lower extremity DVT and is status post IVC filter placement. The patient had been on anticoagulation and developed epistaxis and hematuria and is now also having some painless bright red blood per rectum. He denies any abdominal pain. He does have a history of hemorrhoidal bleeding in the past. He believes his last colonoscopy was 6 years ago. The patient is status post administration of DDAVP. He is denying any dark colored vomitus or history of peptic ulcer disease. Unclear etiology of bleeding may be related to diverticula, AVM, hemorrhoidal bleeding or other etiology. Current Visit: Yes Status: Acute Code(s): K92.2 - GASTROINTESTINAL HEMORRHAGE, UNSPECIFIED SNOMED Code(s): 06501154 (2) Anemia associated with acute blood loss Narrative/Plan: patient has been having epistaxis, hematuria as well as GI bleeding. Current Visit: Yes Status: Acute Code(s): D62 - ACUTE POSTHEMORRHAGIC ANEMIA SNOMED Code(s): 083172628 (3) Right leg DVT Current Visit: Yes Status: Acute Code(s): I82.401 - ACUTE EMBOLISM AND THOMBOS UNSP DEEP VEINS OF R LOW EXTREM SNOMED Code(s): 475828696 (4) Small cell lung cancer Current Visit: Yes Status: Acute Priority: High Code(s): C34.90 - MALIGNANT NEOPLASM OF UNSP PART OF UNSP BRONCHUS OR LUNG SNOMED Code(s): 700644391 Plan: supportive care Continue to monitor CBC and transfuse as needed Continue Protonix therapy empirically Continue to monitor for signs or symptoms of GI bleeding Hematology/oncology following the patient Continue to hold any anticoagulation therapy Thank you for allowing us to participate in the care of the patient we will continue to follow
[2020-05-20] MEDS: FLUCONAZOLE 100 MG TAB PO SCH (08:13)
[2020-05-20] MEDS: CEFEPIME 2 GM in SODIUM CHLORIDE 0.9% 100 ML IVPB SCH ×2 (08:16→20:07)
[2020-05-20] MEDS: PANTOPRAZOLE 40 MG/10 ML VIAL IVP SCH ×2 (08:18→20:07)
[2020-05-20 10:00] LABS: ALT 30 U/L (4-49); AST 30 U/L (17-59); African American GFR (CKD) >90 (>60 ml/min/1.73 sqM); Albumin 2.1 g/dL (3.5-5.0); Alkaline Phosphatase 122 U/L (38-126); Anion Gap 5 mmol/L; Blood Urea Nitrogen 26 mg/dL (9-20); Calcium 7.1 mg/dL (8.4-10.2); Carbon Dioxide 27 mmol/L (22-30); Chloride 109 mmol/L (98-107); Glucose 139 mg/dL (74-99); Non-African American GFR(CKD) 78 (>60 ml/min/1.73 sqM); Sodium 141 mmol/L (137-145); Total Bilirubin 0.6 mg/dL (0.2-1.3); Total Protein 4.3 g/dL (6.3-8.2)
[2020-05-20 10:02] LABS: Band Neutrophils % 4 %; Lymphocytes # (M) 1.53 k/uL (1.0-4.8); Metamyelocytes # (M) 1.15 k/uL (0); Metamyelocytes % 3 %; Monocytes # (M) 1.53 k/uL (0-1.0); Myelocytes # (M) 1.53 k/uL (0); Myelocytes % 4 %; Neutrophils % (M) 83 %; Nucleated Red Blood Cells 0 /100 WBC (0-0); Total Cells Counted 200
[2020-05-20 10:03] LABS: Toxic Granulation Present
[2020-05-20 10:20] LABS: Partial Thromboplastin Time 24.1 sec (22.0-30.0); Prothrombin Time 10.4 sec (9.0-12.0)
[2020-05-20 12:21] LABS: Glucose,Whole Blood 206 mg/dL (75-99)
[2020-05-20] MEDS ORDERED: Potassium Replacement Protocol 1 EACH MISC MISCELLANE PRN (15:03)
[2020-05-20] MEDS: POTASSIUM CHLORIDE ER 20 MEQ TAB.ER PO SCH ×2 (15:42→17:08)
--- NOTE | 2020-05-20 16:42 | P.PN ---
Subjective Progress Note Date: 05/19/20 Principal diagnosis: Sepsis Covering for Dr. Snowden over the weekend Mr. 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 Patient recently completed his first cycle of carboplatin and elliptocyte and his symptoms have worsened since that time. At the time of admission patient had a CTA of the chest that was negative for PE and interval enlargement of hilar mass to 6 cm. Eventually urine cultures have been positive for Klebsiella pneumonia and his blood cultures were positive for Pseudomonas aeruginosa. Patient received cefepime. For the past couple of days patient has been overdosing blood, all his antiplatelet therapy and anticoagulations have been discontinued. Patient has IVC filter in place for DVT. On 05/19/2020 -as per the nursing staff report patient had 4 bloody bowel movements, having hematuria and also uptrending white count to 55. Patient also having atrial fibrillation with heart rate in 110s to 120s. Patient is chronically ill-appearing, he states that he feels feels weak and tired. Denies having any fevers chills or rigors. He complains of mild difficulty in breathin g. Patient states that he cannot move his limbs because of weakness. Patient has a Todd's catheter showing dark-colored urine. On reviewing the vitals patient temperature is 98, heart rate between 1 10-1 20s, blood pressure 102 x 65, saturating at 97% on room air. On reviewing the labs, patient had a white count of 48.4, hemoglobin 8.6, platelets 232. PT of 10.5, INR of 1.0, APTT of 24.4, fibrinogen 527, D-dimer 1.43. LDH of 1938. Active Medications Hydrocodone Bitart/Acetaminophen (Hydrocodone/Apap 5-325mg 1 Each Tab) 1 each PO Q4HR PRN PRN Reason: Pain Last Admin: 05/17/20 22:18 Dose: 1 each Documented by: Al Hydroxide/Mg Hydroxide 30 ml/ Lidocaine HCl 30 ml/Diphenhydramine HCl 75 mg/Nystatin 3,000,000 unit 0 ml PO TID [facility] Last Admin: 05/19/20 21:42 Dose: Not Given Documented by: Diltiazem HCl (Diltiazem Oral 60 Mg Tab) 60 mg PO TID [facility] Last Admin: 05/19/20 20:47 Dose: 60 mg Documented by: Fluconazole (Fluconazole 100 Mg Tab) 200 mg PO DAILY [facility] Last Admin: 05/19/20 17:36 Dose: 200 mg Documented by: Furosemide (Furosemide 20 Mg Tab) 60 mg PO BID@0900,1600 [facility] Last Admin: 05/19/20 14:40 Dose: 60 mg Documented by: Sodium Chloride (Saline 0.9%) 1,000 mls @ 40 mls/hr IV .Q24H [facility] Last Admin: 05/19/20 07:00 Dose: 40 mls/hr Documented by: Cefepime HCl 2 gm/ Sodium (Chloride) 100 mls @ 25 mls/hr IVPB Q12HR [facility] Last Admin: 05/19/20 20:46 Dose: 25 mls/hr Documented by: Insulin Aspart (Insulin Aspart (Novolog) 100 Unit/Ml Vial) 0 unit SQ ACHS [facility]; Protocol Last Admin: 05/19/20 17:23 Dose: Not Given Documented by: Insulin Detemir (Insulin Detemir (Levemir) 100 Unit/Ml Syr) 20 unit SQ HS [facility] Last Admin: 05/19/20 20:47 Dose: 20 unit Documented by: Metoprolol Tartrate (Metoprolol Tartrate 50 Mg Tab) 100 mg PO BID [facility] Last Admin: 05/19/20 20:46 Dose: 100 mg Documented by: Miscellaneous Information (Potassium Replacement Protocol 1 Each Misc) 1 each MISCELLANE DAILY PRN; Protocol PRN Reason: Per Protocol Miscellaneous Information (Potassium Replacement Protocol 1 Each Misc) 1 each MISCELLANE DAILY PRN; Protocol PRN Reason: Per Protocol Miscellaneous Information (Magnesium Replacement Protocol 1 Each Misc) 1 each MISCELLANE DAILY PRN; Protocol PRN Reason: Per Protocol Naloxone HCl (Naloxone 0.4 Mg/Ml 1 Ml Vial) 0.2 mg IV Q2M PRN PRN Reason: Opioid Reversal Nystatin (Nystatin 100,000 Unit/Ml Susp 500,000 Unit/5 Ml Cup) 500,000 unit PO QID [facility] Last Admin: 05/19/20 21:42 Dose: Not Given Documented by: Pantoprazole Sodium (Pantoprazole 40 Mg/10 Ml Vial) 40 mg IVP BID [facility] Last Admin: 05/19/20 14:39 Dose: 40 mg Documented by: Polyethylene Glycol (Polyethylene Glycol 3350 17 Gm Powd.Pack) 17 gm PO DAILY PRN PRN Reason: Constipation Tamsulosin HCl (Tamsulosin 0.4 Mg Cap.Er.24h) 0.4 mg PO HS [facility] Last Admin: 05/19/20 20:47 Dose: 0.4 mg Documented by: Objective - Vital Signs Vital signs: Vital Signs Temp 98.4 F 05/19/20 12:00 Pulse 88 05/19/20 12:00 Resp 16 05/19/20 12:00 BP 100/69 05/19/20 12:30 Pulse Ox 93 L 05/19/20 12:00 Intake & Output 05/18/20 05/19/20 05/19/20 18:59 06:59 18:59 Intake Total 540 310 210 Output Total 900 1175 601 Balance -360 -865 -391 Weight 89 kg Intake: Intake, IV Titration 110 Amount Desmopressin Acetate 27 50 mcg In Sodium Chloride 0. 9% 50 ml @ 200 mls/hr IV ONCE ONE Rx#:[id number] IV Fluid Continuation 1, 60 000 ml @ 0 mls/hr IV .STK -MED ONE Rx#:[id number] Oral 540 100 Blood Product 310 Rc As-1 Unit 310 [id number] Output: Urine 900 1175 600 Stool 1 Other: Voiding Method Indwelling Catheter Indwelling Catheter Indwelling Catheter # Bowel Movements 1 2 - Exam - Exam General: No acute distress. Chronically ill appearing. Eyes: PERRL, EOMI, conjunctiva normal HENT: normocephalic, mucus membranes moist Neck: supple, no JVD Lungs: Increased respiratory effort, no wheezes. Bibasilar crackles CVS: Regular rate and rhythm, no murmur. Tachycardic ,Peripheral pulses 2+. Bilateral LE edema Abdomen: soft, nondistended, no organomegaly, Todd's catheter dark-colored urine Skin: Petechiae over both arms Neuro: A&Ox3, normal mood and affect - Labs CBC & Chem 7: 05/20/20 06:54 05/20/20 06:54 Labs: Abnormal Lab Results - Last 24 Hours (Table) 05/18/20 05/18/20 05/18/20 Range/Units 16:51 16:51 16:58 WBC (3.8-10.6) k/uL RBC (4.30-5.90) m/uL Hgb (13.0-17.5) gm/dL Hct (39.0-53.0) % MCV (80.0-100.0) fL MCHC (31.0-37.0) g/dL RDW (11.5-15.5) % Blast Cells % % Neutrophils # (Manual) (1.3-7.7) k/uL Lymphocytes # (Manual) (1.0-4.8) k/uL Monocytes # (Manual) (0-1.0) k/uL Metamyelocytes # (Man) (0) k/uL Myelocytes # (Manual) (0) k/uL Promyelocytes # (Man) (0) k/uL Blast Cells # (Man) (0) k/uL Nucleated RBCs (0-0) /100 WBC Fibrinogen 595 H (200-500) mg/dL D-Dimer (<0.60) mg/L FEU Potassium (3.5-5.1) mmol/L Chloride (98-107) mmol/L BUN (9-20) mg/dL POC Glucose (mg/dL) 212 H (75-99) mg/dL Calcium (8.4-10.2) mg/dL Delta Bilirubin (0.0-0.2) mg/dL Lactate Dehydrogenase 2060 H (313-618) U/L Total Protein (6.3-8.2) g/dL Albumin (3.5-5.0) g/dL Crossmatch 05/18/20 05/18/20 05/19/20 Range/Units 19:56 22:12 01:46 WBC 47.0 H (3.8-10.6) k/uL RBC 2.26 L (4.30-5.90) m/uL Hgb 7.1 L (13.0-17.5) gm/dL Hct 23.1 L (39.0-53.0) % MCV 102.1 H (80.0-100.0) fL MCHC 30.7 L (31.0-37.0) g/dL RDW (11.5-15.5) % Blast Cells % 2 H* % Neutrophils # (Manual) 39.40 H (1.3-7.7) k/uL Lymphocytes # (Manual) 0.94 L (1.0-4.8) k/uL Monocytes # (Manual) (0-1.0) k/uL Metamyelocytes # (Man) 1.88 H (0) k/uL Myelocytes # (Manual) 2.82 H (0) k/uL Promyelocytes # (Man) (0) k/uL Blast Cells # (Man) 0.94 H (0) k/uL Nucleated RBCs (0-0) /100 WBC Fibrinogen (200-500) mg/dL D-Dimer (<0.60) mg/L FEU Potassium (3.5-5.1) mmol/L Chloride (98-107) mmol/L BUN (9-20) mg/dL POC Glucose (mg/dL) 273 H (75-99) mg/dL Calcium (8.4-10.2) mg/dL Delta Bilirubin (0.0-0.2) mg/dL Lactate Dehydrogenase (313-618) U/L Total Protein (6.3-8.2) g/dL Albumin (3.5-5.0) g/dL Crossmatch See Detail 05/19/20 05/19/20 05/19/20 Range/Units 06:17 06:43 06:43 WBC 48.4 H (3.8-10.6) k/uL RBC 2.80 L (4.30-5.90) m/uL Hgb 8.6 L D (13.0-17.5) gm/dL Hct 28.2 L (39.0-53.0) % MCV 100.7 H (80.0-100.0) fL MCHC 30.5 L (31.0-37.0) g/dL RDW 16.4 H (11.5-15.5) % Blast Cells % % Neutrophils # (Manual) 33.80 H (1.3-7.7) k/uL Lymphocytes # (Manual) (1.0-4.8) k/uL Monocytes # (Manual) (0-1.0) k/uL Metamyelocytes # (Man) 5.32 H (0) k/uL Myelocytes # (Manual) 5.81 H (0) k/uL Promyelocytes # (Man) 0.48 H (0) k/uL Blast Cells # (Man) (0) k/uL Nucleated RBCs (0-0) /100 WBC Fibrinogen (200-500) mg/dL D-Dimer (<0.60) mg/L FEU Potassium 3.2 L (3.5-5.1) mmol/L Chloride 110 H (98-107) mmol/L BUN 31 H (9-20) mg/dL POC Glucose (mg/dL) 132 H (75-99) mg/dL Calcium 7.1 L (8.4-10.2) mg/dL Delta Bilirubin (0.0-0.2) mg/dL Lactate Dehydrogenase 1938 H (313-618) U/L Total Protein (6.3-8.2) g/dL Albumin (3.5-5.0) g/dL Crossmatch 05/19/20 05/19/20 05/19/20 Range/Units 08:00 11:09 11:09 WBC 51.2 H* (3.8-10.6) k/uL RBC 2.95 L (4.30-5.90) m/uL Hgb 9.4 L (13.0-17.5) gm/dL Hct 29.4 L (39.0-53.0) % MCV (80.0-100.0) fL MCHC (31.0-37.0) g/dL RDW 15.9 H (11.5-15.5) % Blast Cells % 1 H* % Neutrophils # (Manual) 42.40 H (1.3-7.7) k/uL Lymphocytes # (Manual) (1.0-4.8) k/uL Monocytes # (Manual) 1.02 H (0-1.0) k/uL Metamyelocytes # (Man) 3.07 H (0) k/uL Myelocytes # (Manual) 3.07 H (0) k/uL Promyelocytes # (Man) (0) k/uL Blast Cells # (Man) 0.51 H (0) k/uL Nucleated RBCs 1 H (0-0) /100 WBC Fibrinogen 527 H (200-500) mg/dL D-Dimer 1.43 H (<0.60) mg/L FEU Potassium (3.5-5.1) mmol/L Chloride (98-107) mmol/L BUN (9-20) mg/dL POC Glucose (mg/dL) (75-99) mg/dL Calcium (8.4-10.2) mg/dL Delta Bilirubin 0.3 H (0.0-0.2) mg/dL Lactate Dehydrogenase (313-618) U/L Total Protein 4.0 L (6.3-8.2) g/dL Albumin 1.9 L (3.5-5.0) g/dL Crossmatch Assessment and Plan Assessment: ASSESSMENT Acute leukocytosis Acute blood loss anemia Hematuria Bleeding per rectum Epistaxis Right leg DVT Small cell lung cancer Creatinine Lambert-Eaton syndrome UTI with Klebsiella pneumonia Pseudomonas bacteremia Type 2 diabetes mellitus Hypertension Osteoarthritis PLAN: Patient has epistaxis, hematuria, bloody bowel movement, he has been off of anticoagulants and antiplatelets for the past couple of days. Patient received desmopressin. Patients with fibrinogen within normal limits, PT, APTT within normal limits. Platelets are within normal limits. We will repeat urine analysis and culture. Patient has been started on IV Protonix. Spoke with hematology and discussed the patient in detail with them. To continue with serial CPKs and coags. We will also go ahead and consult ID Dr. Rubin, spoke with him about the patient. Patient continues to be in atrial fibrillation and he is on Cardizem for rate control. Overall prognosis is poor. Patient's will be updated on his status. Further recommendations to follow depending on the progress of the patient.
--- NOTE | 2020-05-20 16:50 | P.PN ---
Subjective Progress Note Date: 05/20/20 Principal diagnosis: Sepsis Covering for Dr. Snowden over the weekend Mr. 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 Patient recently completed his first cycle of carboplatin and elliptocyte and his symptoms have worsened since that time. At the time of admission patient had a CTA of the chest that was negative for PE and interval enlargement of hilar mass to 6 cm. Eventually urine cultures have been positive for Klebsiella pneumonia and his blood cultures were positive for Pseudomonas aeruginosa. Patient received cefepime. For the past couple of days patient has been overdosing blood, all his antiplatelet therapy and anticoagulations have been discontinued. Patient has IVC filter in place for DVT. On 05/19/2020 -as per the nursing staff report patient had 4 bloody bowel movements, having hematuria and also uptrending white count to 55. Patient also having atrial fibrillation with heart rate in 110s to 120s. Patient is chronically ill-appearing, he states that he feels feels weak and tired. Denies having any fevers chills or rigors. He complains of mild difficulty in breathin g. Patient states that he cannot move his limbs because of weakness. Patient has a Todd's catheter showing dark-colored urine. On reviewing the vitals patient temperature is 98, heart rate between 1 10-1 20s, blood pressure 102 x 65, saturating at 97% on room air. On reviewing the labs, patient had a white count of 48.4, hemoglobin 8.6, platelets 232. PT of 10.5, INR of 1.0, APTT of 24.4, fibrinogen 527, D-dimer 1.43. LDH of 1938. On 05/20/2020 - patient states that he feels better today compared to yesterday. As per the nursing staff report, patient's Todd's catheter does not show blood any more. It is cleared colored urine. Patient had a bowel movement this morning and it was dark green in color. No blood in the stool. Patient is not bleeding from any other sites, no nosebleeds. Patient denies having any chest pain or palpitations. He complains of generalized weakness and fatigue. He also states that his appetite is poor. He denies having any fevers chills or rigors. No abdominal pain, nausea vomiting or diarrhea. On reviewing her vitals T-max is 98.5, heart rate in 100s to 110s, respiratory rate 16, blood pressure 1 22 x 86, saturating at 93% on room air. On reviewing his labs white count of 38.3, hemoglobin 9.8, platelets 239. Sodium 141, depression 3, chloride 109, bicarbonate 27. BUN is 26, creatinine is 1.0. Albumin is 2.1. Active Medications Hydrocodone Bitart/Acetaminophen (Hydrocodone/Apap 5-325mg 1 Each Tab) 1 each PO Q4HR PRN PRN Reason: Pain Last Admin: 05/20/20 11:20 Dose: 1 each Documented by: Al Hydroxide/Mg Hydroxide 30 ml/ Lidocaine HCl 30 ml/Diphenhydramine HCl 75 mg/Nystatin 3,000,000 unit 0 ml PO TID [facility] Last Admin: 05/20/20 15:34 Dose: Not Given Documented by: Diltiazem HCl (Diltiazem Oral 60 Mg Tab) 60 mg PO TID [facility] Last Admin: 05/20/20 15:42 Dose: 60 mg Documented by: Fluconazole (Fluconazole 100 Mg Tab) 200 mg PO DAILY [facility] Last Admin: 05/20/20 08:13 Dose: 200 mg Documented by: Furosemide (Furosemide 20 Mg Tab) 60 mg PO BID@0900,1600 [facility] Last Admin: 05/20/20 15:42 Dose: 60 mg Documented by: Sodium Chloride (Saline 0.9%) 1,000 mls @ 40 mls/hr IV .Q24H [facility] Last Admin: 05/20/20 06:53 Dose: Not Given Documented by: Cefepime HCl 2 gm/ Sodium (Chloride) 100 mls @ 25 mls/hr IVPB Q12HR [facility] Last Admin: 05/20/20 08:16 Dose: 25 mls/hr Documented by: Insulin Aspart (Insulin Aspart (Novolog) 100 Unit/Ml Vial) 0 unit SQ [facility]; Protocol Last Admin: 05/20/20 13:05 Dose: 3 unit Documented by: Insulin Detemir (Insulin Detemir (Levemir) 100 Unit/Ml Syr) 20 unit SQ HS [facility] Last Admin: 05/19/20 20:47 Dose: 20 unit Documented by: Metoprolol Tartrate (Metoprolol Tartrate 50 Mg Tab) 100 mg PO BID [facility] Last Admin: 05/20/20 08:09 Dose: 100 mg Documented by: Miscellaneous Information (Potassium Replacement Protocol 1 Each Misc) 1 each MISCELLANE DAILY PRN; Protocol PRN Reason: Per Protocol Miscellaneous Information (Potassium Replacement Protocol 1 Each Misc) 1 each MISCELLANE DAILY PRN; Protocol PRN Reason: Per Protocol Miscellaneous Information (Magnesium Replacement Protocol 1 Each Misc) 1 each MISCELLANE DAILY PRN; Protocol PRN Reason: Per Protocol Miscellaneous Information (Potassium Replacement Protocol 1 Each Misc) 1 each MISCELLANE DAILY PRN; Protocol PRN Reason: Per Protocol Naloxone HCl (Naloxone 0.4 Mg/Ml 1 Ml Vial) 0.2 mg IV Q2M PRN PRN Reason: Opioid Reversal Nystatin (Nystatin 100,000 Unit/Ml Susp 500,000 Unit/5 Ml Cup) 500,000 unit PO QID [facility] Last Admin: 05/20/20 15:34 Dose: Not Given Documented by: Pantoprazole Sodium (Pantoprazole 40 Mg/10 Ml Vial) 40 mg IVP BID [facility] Last Admin: 05/20/20 08:18 Dose: 40 mg Documented by: Polyethylene Glycol (Polyethylene Glycol 3350 17 Gm Powd.Pack) 17 gm PO DAILY PRN PRN Reason: Constipation Potassium Chloride (Potassium Chloride Er 20 Meq Tab.Er) 20 meq PO Q1HR [facility]; Protocol Stop: 05/20/20 17:01 Last Admin: 05/20/20 15:42 Dose: 20 meq Documented by: Tamsulosin HCl (Tamsulosin 0.4 Mg Cap.Er.24h) 0.4 mg PO [facility] Last Admin: 05/19/20 20:47 Dose: 0.4 mg Documented by: Objective - Vital Signs Vital signs: Vital Signs Temp 98.5 F 05/20/20 11:16 Pulse 110 H 05/20/20 12:00 Resp 16 05/20/20 12:00 BP 122/86 05/20/20 11:16 Pulse Ox 93 L 05/20/20 11:16 Intake & Output 05/19/20 05/20/20 05/20/20 18:59 06:59 18:59 Intake Total 210 310 310 Output Total 1326 1425 1 Balance -1116 -1115 309 Weight 91.5 kg Intake: Intake, IV Titration 110 Amount Desmopressin Acetate 27 50 mcg In Sodium Chloride 0. 9% 50 ml @ 200 mls/hr IV ONCE ONE Rx#:[id number] IV Fluid Continuation 1, 60 000 ml @ 0 mls/hr IV .STK -MED ONE Rx#:[id number] Oral 100 Blood Product 310 310 Rc As-1 Unit 0 310 [id number] Rc Pheresis As-3 Unit 310 [id number] Output: Urine 1325 1425 Stool 1 1 Other: Voiding Method Indwelling Catheter Indwelling Catheter Indwelling Catheter # Bowel Movements 2 2 1 - Exam - Exam General: No acute distress. Chronically ill appearing. Eyes: PERRL, EOMI, conjunctiva normal HENT: normocephalic, mucus membranes moist Neck: supple, no JVD Lungs: Increased respiratory effort, no wheezes. Bibasilar crackles CVS: Regular rate and rhythm, no murmur. Tachycardic ,Peripheral pulses 2+. Bilateral LE edema Abdomen: soft, nondistended, no organomegaly, Todd's catheter normal urine Skin: Petechiae over both arms Neuro: A&Ox3, normal mood and affect - Labs CBC & Chem 7: 05/20/20 06:54 05/20/20 06:54 Labs: Abnormal Lab Results - Last 24 Hours (Table) 05/19/20 05/19/20 05/19/20 Range/Units 01:46 14:35 16:18 WBC 54.1 H* (3.8-10.6) k/uL RBC 2.74 L (4.30-5.90) m/uL Hgb 8.6 L (13.0-17.5) gm/dL Hct 27.6 L (39.0-53.0) % MCV 100.8 H (80.0-100.0) fL RDW 16.6 H (11.5-15.5) % Blast Cells % % Neutrophils # (Manual) 45.40 H (1.3-7.7) k/uL Monocytes # (Manual) 1.62 H (0-1.0) k/uL Metamyelocytes # (Man) 3.25 H (0) k/uL Myelocytes # (Manual) 2.71 H (0) k/uL Blast Cells # (Man) (0) k/uL Potassium (3.5-5.1) mmol/L Chloride (98-107) mmol/L BUN (9-20) mg/dL Glucose (74-99) mg/dL POC Glucose (mg/dL) (75-99) mg/dL Calcium (8.4-10.2) mg/dL C-Reactive Protein 31.8 H (<10.0) mg/L Total Protein (6.3-8.2) g/dL Albumin (3.5-5.0) g/dL Urine Protein (Negative) Urine Blood (Negative) Ur Leukocyte Esterase (Negative) Urine RBC (0-5) /hpf Urine WBC (0-5) /hpf Urine WBC Clumps (None) /hpf Crossmatch See Detail 05/19/20 05/19/20 05/19/20 Range/Units 17:00 20:10 22:18 WBC 45.1 H (3.8-10.6) k/uL RBC 2.38 L (4.30-5.90) m/uL Hgb 7.4 L (13.0-17.5) gm/dL Hct 23.4 L (39.0-53.0) % MCV (80.0-100.0) fL RDW 16.6 H (11.5-15.5) % Blast Cells % 2 H* % Neutrophils # (Manual) 36.00 H (1.3-7.7) k/uL Monocytes # (Manual) 3.16 H (0-1.0) k/uL Metamyelocytes # (Man) 0.45 H (0) k/uL Myelocytes # (Manual) 0.90 H (0) k/uL Blast Cells # (Man) 0.90 H (0) k/uL Potassium (3.5-5.1) mmol/L Chloride (98-107) mmol/L BUN (9-20) mg/dL Glucose (74-99) mg/dL POC Glucose (mg/dL) 139 H (75-99) mg/dL Calcium (8.4-10.2) mg/dL C-Reactive Protein (<10.0) mg/L Total Protein (6.3-8.2) g/dL Albumin (3.5-5.0) g/dL Urine Protein 2+ H (Negative) Urine Blood Large H (Negative) Ur Leukocyte Esterase Small H (Negative) Urine RBC >182 H (0-5) /hpf Urine WBC 110 H (0-5) /hpf Urine WBC Clumps Occasional H (None) /hpf Crossmatch 05/20/20 05/20/20 05/20/20 Range/Units 00:49 06:04 06:54 WBC 42.6 H 38.3 H (3.8-10.6) k/uL RBC 2.30 L 3.24 L (4.30-5.90) m/uL Hgb 7.0 L 9.8 L D (13.0-17.5) gm/dL Hct 22.4 L 31.3 L (39.0-53.0) % MCV (80.0-100.0) fL RDW 16.6 H 16.8 H (11.5-15.5) % Blast Cells % % Neutrophils # (Manual) 33.30 H (1.3-7.7) k/uL Monocytes # (Manual) 1.53 H (0-1.0) k/uL Metamyelocytes # (Man) 1.15 H (0) k/uL Myelocytes # (Manual) 1.53 H (0) k/uL Blast Cells # (Man) (0) k/uL Potassium (3.5-5.1) mmol/L Chloride (98-107) mmol/L BUN (9-20) mg/dL Glucose (74-99) mg/dL POC Glucose (mg/dL) 152 H (75-99) mg/dL Calcium (8.4-10.2) mg/dL C-Reactive Protein (<10.0) mg/L Total Protein (6.3-8.2) g/dL Albumin (3.5-5.0) g/dL Urine Protein (Negative) Urine Blood (Negative) Ur Leukocyte Esterase (Negative) Urine RBC (0-5) /hpf Urine WBC (0-5) /hpf Urine WBC Clumps (None) /hpf Crossmatch 05/20/20 05/20/20 Range/Units 06:54 12:20 WBC (3.8-10.6) k/uL RBC (4.30-5.90) m/uL Hgb (13.0-17.5) gm/dL Hct (39.0-53.0) % MCV (80.0-100.0) fL RDW (11.5-15.5) % Blast Cells % % Neutrophils # (Manual) (1.3-7.7) k/uL Monocytes # (Manual) (0-1.0) k/uL Metamyelocytes # (Man) (0) k/uL Myelocytes # (Manual) (0) k/uL Blast Cells # (Man) (0) k/uL Potassium 3.0 L (3.5-5.1) mmol/L Chloride 109 H (98-107) mmol/L BUN 26 H (9-20) mg/dL Glucose 139 H (74-99) mg/dL POC Glucose (mg/dL) 206 H (75-99) mg/dL Calcium 7.1 L (8.4-10.2) mg/dL C-Reactive Protein (<10.0) mg/L Total Protein 4.3 L (6.3-8.2) g/dL Albumin 2.1 L (3.5-5.0) g/dL Urine Protein (Negative) Urine Blood (Negative) Ur Leukocyte Esterase (Negative) Urine RBC (0-5) /hpf Urine WBC (0-5) /hpf Urine WBC Clumps (None) /hpf Crossmatch Microbiology - Last 24 Hours (Table) 05/19/20 11:02 Stool Culture - Preliminary Stool 05/19/20 17:00 Urine Culture - Preliminary Urine,Clean Catch Assessment and Plan Assessment: ASSESSMENT Acute leukocytosis Acute blood loss anemia Hematuria Bleeding per rectum Epistaxis Right leg DVT Small cell lung cancer Creatinine Lambert-Eaton syndrome UTI with Klebsiella pneumonia Pseudomonas bacteremia Type 2 diabetes mellitus Hypertension Osteoarthritis PLAN: Patient received 3 units of PRBCs, 2 units of platelets in the past 24 hours. His hemoglobin has been stable around 9.8. We will continue to hold off all antiplatelets and anticoagulants. Patient does not have any more epistaxis, hematuria or bloody bowel movements. He received a dose of desmopressin yesterday. Continue to monitor PT, APTT and fibrinogen levels. Patient has been started on cefepime and Diflucan by Dr. Rubin yesterday. He continues to receive Lasix at 60 mg twice a day. Patient is on Cardizem for atrial fibrillation. Continue with IV Protonix. GI has been consulted, Dr. Torres following the patient. Multiple consultants times following the patient closely. Overall prognosis is guarded. The treatment plan was discussed with the patient and his at bedside today in detail. Further recommendations depending on the progress of the patient.
[2020-05-20 16:58] LABS: Glucose,Whole Blood 212 mg/dL (75-99)
--- NOTE | 2020-05-20 17:12 | P.PN ---
Subjective Progress Note Date: 05/20/20 Principal diagnosis: Sepsis Bleeding has improved, mood and alertness improved. Telemedicine visit today due to covid increase. Patient's at bedside, less hematuria, nose with occassion blood although scabby and picking. Blood counts continung to improve. Objective - Vital Signs Vital signs: Vital Signs Temp 98.2 F 05/20/20 15:38 Pulse 111 H 05/20/20 15:38 Resp 16 05/20/20 15:38 BP 105/67 05/20/20 15:38 Pulse Ox 95 05/20/20 15:38 Intake & Output 05/19/20 05/20/20 05/20/20 18:59 06:59 18:59 Intake Total 210 310 310 Output Total 1326 1425 851 Balance -1116 -1115 -541 Weight 91.5 kg Intake: Intake, IV Titration 110 Amount Desmopressin Acetate 27 50 mcg In Sodium Chloride 0. 9% 50 ml @ 200 mls/hr IV ONCE ONE Rx#:[id number] IV Fluid Continuation 1, 60 000 ml @ 0 mls/hr IV .STK -MED ONE Rx#:[id number] Oral 100 Blood Product 310 310 Rc As-1 Unit 0 310 [id number] Rc Pheresis As-3 Unit 310 [id number] Output: Urine 1325 1425 850 Stool 1 1 Other: Voiding Method Indwelling Catheter Indwelling Catheter Indwelling Catheter # Bowel Movements 2 2 1 - Exam Yellow to occassional pink in folet per nursing Patient more alert today Bandage on arm weeping less - Labs CBC & Chem 7: 05/20/20 06:54 05/20/20 06:54 Labs: Abnormal Lab Results - Last 24 Hours (Table) 05/19/20 05/19/20 05/19/20 Range/Units 01:46 14:35 17:00 WBC 54.1 H* (3.8-10.6) k/uL RBC (4.30-5.90) m/uL Hgb (13.0-17.5) gm/dL Hct (39.0-53.0) % RDW (11.5-15.5) % Blast Cells % % Neutrophils # (Manual) 45.40 H (1.3-7.7) k/uL Monocytes # (Manual) 1.62 H (0-1.0) k/uL Metamyelocytes # (Man) 3.25 H (0) k/uL Myelocytes # (Manual) 2.71 H (0) k/uL Blast Cells # (Man) (0) k/uL Potassium (3.5-5.1) mmol/L Chloride (98-107) mmol/L BUN (9-20) mg/dL Glucose (74-99) mg/dL POC Glucose (mg/dL) (75-99) mg/dL Calcium (8.4-10.2) mg/dL Total Protein (6.3-8.2) g/dL Albumin (3.5-5.0) g/dL Urine Protein 2+ H (Negative) Urine Blood Large H (Negative) Ur Leukocyte Esterase Small H (Negative) Urine RBC >182 H (0-5) /hpf Urine WBC 110 H (0-5) /hpf Urine WBC Clumps Occasional H (None) /hpf Stool Lactoferrin (NEGATIVE) Crossmatch See Detail 05/19/20 05/19/20 05/19/20 Range/Units 17:05 20:10 22:18 WBC 45.1 H (3.8-10.6) k/uL RBC 2.38 L (4.30-5.90) m/uL Hgb 7.4 L (13.0-17.5) gm/dL Hct 23.4 L (39.0-53.0) % RDW 16.6 H (11.5-15.5) % Blast Cells % 2 H* % Neutrophils # (Manual) 36.00 H (1.3-7.7) k/uL Monocytes # (Manual) 3.16 H (0-1.0) k/uL Metamyelocytes # (Man) 0.45 H (0) k/uL Myelocytes # (Manual) 0.90 H (0) k/uL Blast Cells # (Man) 0.90 H (0) k/uL Potassium (3.5-5.1) mmol/L Chloride (98-107) mmol/L BUN (9-20) mg/dL Glucose (74-99) mg/dL POC Glucose (mg/dL) 139 H (75-99) mg/dL Calcium (8.4-10.2) mg/dL Total Protein (6.3-8.2) g/dL Albumin (3.5-5.0) g/dL Urine Protein (Negative) Urine Blood (Negative) Ur Leukocyte Esterase (Negative) Urine RBC (0-5) /hpf Urine WBC (0-5) /hpf Urine WBC Clumps (None) /hpf Stool Lactoferrin POSITIVE A (NEGATIVE) Crossmatch 05/20/20 05/20/20 05/20/20 Range/Units 00:49 06:04 06:54 WBC 42.6 H 38.3 H (3.8-10.6) k/uL RBC 2.30 L 3.24 L (4.30-5.90) m/uL Hgb 7.0 L 9.8 L D (13.0-17.5) gm/dL Hct 22.4 L 31.3 L (39.0-53.0) % RDW 16.6 H 16.8 H (11.5-15.5) % Blast Cells % % Neutrophils # (Manual) 33.30 H (1.3-7.7) k/uL Monocytes # (Manual) 1.53 H (0-1.0) k/uL Metamyelocytes # (Man) 1.15 H (0) k/uL Myelocytes # (Manual) 1.53 H (0) k/uL Blast Cells # (Man) (0) k/uL Potassium (3.5-5.1) mmol/L Chloride (98-107) mmol/L BUN (9-20) mg/dL Glucose (74-99) mg/dL POC Glucose (mg/dL) 152 H (75-99) mg/dL Calcium (8.4-10.2) mg/dL Total Protein (6.3-8.2) g/dL Albumin (3.5-5.0) g/dL Urine Protein (Negative) Urine Blood (Negative) Ur Leukocyte Esterase (Negative) Urine RBC (0-5) /hpf Urine WBC (0-5) /hpf Urine WBC Clumps (None) /hpf Stool Lactoferrin (NEGATIVE) Crossmatch 05/20/20 05/20/20 Range/Units 06:54 12:20 WBC (3.8-10.6) k/uL RBC (4.30-5.90) m/uL Hgb (13.0-17.5) gm/dL Hct (39.0-53.0) % RDW (11.5-15.5) % Blast Cells % % Neutrophils # (Manual) (1.3-7.7) k/uL Monocytes # (Manual) (0-1.0) k/uL Metamyelocytes # (Man) (0) k/uL Myelocytes # (Manual) (0) k/uL Blast Cells # (Man) (0) k/uL Potassium 3.0 L (3.5-5.1) mmol/L Chloride 109 H (98-107) mmol/L BUN 26 H (9-20) mg/dL Glucose 139 H (74-99) mg/dL POC Glucose (mg/dL) 206 H (75-99) mg/dL Calcium 7.1 L (8.4-10.2) mg/dL Total Protein 4.3 L (6.3-8.2) g/dL Albumin 2.1 L (3.5-5.0) g/dL Urine Protein (Negative) Urine Blood (Negative) Ur Leukocyte Esterase (Negative) Urine RBC (0-5) /hpf Urine WBC (0-5) /hpf Urine WBC Clumps (None) /hpf Stool Lactoferrin (NEGATIVE) Crossmatch Microbiology - Last 24 Hours (Table) 05/19/20 11:02 Stool Culture - Preliminary Stool 05/19/20 17:00 Urine Culture - Preliminary Urine,Clean Catch Assessment and Plan (1) Right leg DVT Current Visit: Yes Status: Acute Code(s): I82.401 - ACUTE EMBOLISM AND THOMBOS UNSP DEEP VEINS OF R LOW EXTREM SNOMED Code(s): 502340701 (2) Pancytopenia Current Visit: Yes Status: Acute Code(s): D61.818 - OTHER PANCYTOPENIA SNOMED Code(s): 648574994 (3) Small cell lung cancer Current Visit: Yes Status: Acute Priority: High Code(s): C34.90 - MALIGNANT NEOPLASM OF UNSP PART OF UNSP BRONCHUS OR LUNG SNOMED Code(s): 631381101 (4) Weakness Current Visit: Yes Status: Acute Code(s): R53.1 - WEAKNESS SNOMED Code(s): 33695218 Plan: Assessment and recommendations: Limited Stage Small Cell Lung Cancer: - Status Post cycle one Carbo/POST SPLITTER-16 (04/30-05/02) with Neulasta - On Hold for acute issues below Acute Right Lower Extremity DVT: - Switch to Eliquis - Status Post IVC filter .09.29 UTI/Bacteremia: Afebrile >72 - Repeat BC negative at 72 hours - Continued on IV antibiotics Thrombocytopenia: Stable Recovered 218K - Improved Status Post DDAVP .05/19 PLan: Will wait for results of Factor Xa, Factor VII, Fibringen antigen and repeat cbc and coags today. Differentials for hematuria likely related to hemorrhagic cystitis, will repeat Urinalysis and Culture. I will add PPI IV BID as now with bloody stools concern of potential stress ulcer. The picture does not give definitive proof of any coagulation problem. Serial CBC and Coags Add PPI Discussed with patients at bedside and nursing. - Continue abx per ID - Continue PPI - COntinue supportive care - Recheck CBC and CMP with mag now to reassess rate of bleeding and electrolyte decreases Telemedicine Visit today with increased rate of COVID cases, discussed with patients who agreed to telephone call. Assessment assisted through RN and
[2020-05-20 19:09] LABS: Anisocytosis Slight; HCT 27.1 % (39.0-53.0); HGB 8.9 gm/dL (13.0-17.5); MCH 30.6 pg (25.0-35.0); MCHC 32.8 g/dL (31.0-37.0); MCV 93.2 fL (80.0-100.0); Mean Platelet Volume 8.5; Platelet Count 241 k/uL (150-450); Poikilocytosis Slight; RBC 2.91 m/uL (4.30-5.90); RDW 16.6 % (11.5-15.5); WBC 34.7 k/uL (3.8-10.6)
[2020-05-20 19:12] LABS: Calcium 7.2 mg/dL (8.4-10.2); Magnesium 1.6 mg/dL (1.6-2.3); Total Bilirubin 0.4 mg/dL (0.2-1.3); Total Protein 4.3 g/dL (6.3-8.2)
[2020-05-20 19:21] LABS: Potassium 2.7 mmol/L (3.5-5.1)
[2020-05-20 19:44] LABS: Band Neutrophils % 7 %; Lymphocytes # (M) 1.04 k/uL (1.0-4.8); Metamyelocytes # (M) 1.74 k/uL (0); Metamyelocytes % 5 %; Monocytes # (M) 0.35 k/uL (0-1.0); Myelocytes # (M) 1.39 k/uL (0); Myelocytes % 4 %; Neutrophils % (M) 81 %; Nucleated Red Blood Cells 0 /100 WBC (0-0); Polychromasia Present; Total Cells Counted 200
--- NOTE | 2020-05-20 19:58 | P.PN ---
Subjective Progress Note Date: 05/20/20 Principal diagnosis: GI bleed, anemia of acute blood loss the patient is seen sitting in bed with his bedside. No further GI bleeding with nonbloody bowel movement this morning. Urine output is clear. He is tolerating his diet with no abdominal pain. Objective - Vital Signs Vital signs: Vital Signs Temp 98.5 F 05/20/20 11:16 Pulse 110 H 05/20/20 11:16 Resp 16 05/20/20 11:16 BP 122/86 05/20/20 11:16 Pulse Ox 93 L 05/20/20 11:16 Intake & Output 05/19/20 05/20/20 05/20/20 18:59 06:59 18:59 Intake Total 210 310 310 Output Total 1326 1425 1 Balance -1116 -1115 309 Weight 91.5 kg Intake: Intake, IV Titration 110 Amount Desmopressin Acetate 27 50 mcg In Sodium Chloride 0. 9% 50 ml @ 200 mls/hr IV ONCE ONE Rx#:[id number] IV Fluid Continuation 1, 60 000 ml @ 0 mls/hr IV .STK -MED ONE Rx#:[id number] Oral 100 Blood Product 310 310 Rc As-1 Unit 0 310 [id number] Rc Pheresis As-3 Unit 310 [id number] Output: Urine 1325 1425 Stool 1 1 Other: Voiding Method Indwelling Catheter Indwelling Catheter Indwelling Catheter # Bowel Movements 2 2 - Exam On physical examination, patient appears comfortable in no apparent distress. HEAD: Normocephalic, atraumatic. EYES: No scleral icterus. No conjunctival injection. MOUTH: No lesions, tongue midline. NECK: Trachea midline, no gross abnormalities. ABDOMEN: Soft, nontender to palpation. Bowel sounds are positive. No organomegaly. No guarding or rigidity. EXTREMITIES: No pedal edema. SKIN: No rashes, no jaundice. NEUROLOGIC: Alert and oriented x3. No focal deficits. - Labs CBC & Chem 7: 05/20/20 18:17 05/20/20 18:17 Labs: Abnormal Lab Results - Last 24 Hours (Table) 05/19/20 05/19/20 05/19/20 Range/Units 01:46 06:43 08:00 WBC 51.2 H* (3.8-10.6) k/uL RBC (4.30-5.90) m/uL Hgb (13.0-17.5) gm/dL Hct (39.0-53.0) % MCV (80.0-100.0) fL RDW (11.5-15.5) % Blast Cells % 1 H* % Neutrophils # (Manual) 33.80 H 42.40 H (1.3-7.7) k/uL Monocytes # (Manual) 1.02 H (0-1.0) k/uL Metamyelocytes # (Man) 5.32 H 3.07 H (0) k/uL Myelocytes # (Manual) 5.81 H 3.07 H (0) k/uL Promyelocytes # (Man) 0.48 H (0) k/uL Blast Cells # (Man) 0.51 H (0) k/uL Nucleated RBCs 1 H (0-0) /100 WBC Fibrinogen (200-500) mg/dL D-Dimer (<0.60) mg/L FEU Potassium (3.5-5.1) mmol/L Chloride (98-107) mmol/L BUN (9-20) mg/dL Glucose (74-99) mg/dL POC Glucose (mg/dL) (75-99) mg/dL Calcium (8.4-10.2) mg/dL Delta Bilirubin (0.0-0.2) mg/dL C-Reactive Protein (<10.0) mg/L Total Protein (6.3-8.2) g/dL Albumin (3.5-5.0) g/dL Urine Protein (Negative) Urine Blood (Negative) Ur Leukocyte Esterase (Negative) Urine RBC (0-5) /hpf Urine WBC (0-5) /hpf Urine WBC Clumps (None) /hpf Crossmatch See Detail 05/19/20 05/19/20 05/19/20 Range/Units 11:09 11:09 14:35 WBC 54.1 H* (3.8-10.6) k/uL RBC 2.74 L (4.30-5.90) m/uL Hgb 8.6 L (13.0-17.5) gm/dL Hct 27.6 L (39.0-53.0) % MCV 100.8 H (80.0-100.0) fL RDW 16.6 H (11.5-15.5) % Blast Cells % % Neutrophils # (Manual) 45.40 H (1.3-7.7) k/uL Monocytes # (Manual) 1.62 H (0-1.0) k/uL Metamyelocytes # (Man) 3.25 H (0) k/uL Myelocytes # (Manual) 2.71 H (0) k/uL Promyelocytes # (Man) (0) k/uL Blast Cells # (Man) (0) k/uL Nucleated RBCs (0-0) /100 WBC Fibrinogen 527 H (200-500) mg/dL D-Dimer 1.43 H (<0.60) mg/L FEU Potassium (3.5-5.1) mmol/L Chloride (98-107) mmol/L BUN (9-20) mg/dL Glucose (74-99) mg/dL POC Glucose (mg/dL) (75-99) mg/dL Calcium (8.4-10.2) mg/dL Delta Bilirubin 0.3 H (0.0-0.2) mg/dL C-Reactive Protein (<10.0) mg/L Total Protein 4.0 L (6.3-8.2) g/dL Albumin 1.9 L (3.5-5.0) g/dL Urine Protein (Negative) Urine Blood (Negative) Ur Leukocyte Esterase (Negative) Urine RBC (0-5) /hpf Urine WBC (0-5) /hpf Urine WBC Clumps (None) /hpf Crossmatch 05/19/20 05/19/20 05/19/20 Range/Units 16:18 17:00 20:10 WBC (3.8-10.6) k/uL RBC (4.30-5.90) m/uL Hgb (13.0-17.5) gm/dL Hct (39.0-53.0) % MCV (80.0-100.0) fL RDW (11.5-15.5) % Blast Cells % % Neutrophils # (Manual) (1.3-7.7) k/uL Monocytes # (Manual) (0-1.0) k/uL Metamyelocytes # (Man) (0) k/uL Myelocytes # (Manual) (0) k/uL Promyelocytes # (Man) (0) k/uL Blast Cells # (Man) (0) k/uL Nucleated RBCs (0-0) /100 WBC Fibrinogen (200-500) mg/dL D-Dimer (<0.60) mg/L FEU Potassium (3.5-5.1) mmol/L Chloride (98-107) mmol/L BUN (9-20) mg/dL Glucose (74-99) mg/dL POC Glucose (mg/dL) 139 H (75-99) mg/dL Calcium (8.4-10.2) mg/dL Delta Bilirubin (0.0-0.2) mg/dL C-Reactive Protein 31.8 H (<10.0) mg/L Total Protein (6.3-8.2) g/dL Albumin (3.5-5.0) g/dL Urine Protein 2+ H (Negative) Urine Blood Large H (Negative) Ur Leukocyte Esterase Small H (Negative) Urine RBC >182 H (0-5) /hpf Urine WBC 110 H (0-5) /hpf Urine WBC Clumps Occasional H (None) /hpf Crossmatch 05/19/20 05/20/20 05/20/20 Range/Units 22:18 00:49 06:04 WBC 45.1 H 42.6 H (3.8-10.6) k/uL RBC 2.38 L 2.30 L (4.30-5.90) m/uL Hgb 7.4 L 7.0 L (13.0-17.5) gm/dL Hct 23.4 L 22.4 L (39.0-53.0) % MCV (80.0-100.0) fL RDW 16.6 H 16.6 H (11.5-15.5) % Blast Cells % 2 H* % Neutrophils # (Manual) 36.00 H (1.3-7.7) k/uL Monocytes # (Manual) 3.16 H (0-1.0) k/uL Metamyelocytes # (Man) 0.45 H (0) k/uL Myelocytes # (Manual) 0.90 H (0) k/uL Promyelocytes # (Man) (0) k/uL Blast Cells # (Man) 0.90 H (0) k/uL Nucleated RBCs (0-0) /100 WBC Fibrinogen (200-500) mg/dL D-Dimer (<0.60) mg/L FEU Potassium (3.5-5.1) mmol/L Chloride (98-107) mmol/L BUN (9-20) mg/dL Glucose (74-99) mg/dL POC Glucose (mg/dL) 152 H (75-99) mg/dL Calcium (8.4-10.2) mg/dL Delta Bilirubin (0.0-0.2) mg/dL C-Reactive Protein (<10.0) mg/L Total Protein (6.3-8.2) g/dL Albumin (3.5-5.0) g/dL Urine Protein (Negative) Urine Blood (Negative) Ur Leukocyte Esterase (Negative) Urine RBC (0-5) /hpf Urine WBC (0-5) /hpf Urine WBC Clumps (None) /hpf Crossmatch 05/20/20 05/20/20 Range/Units 06:54 06:54 WBC 38.3 H (3.8-10.6) k/uL RBC 3.24 L (4.30-5.90) m/uL Hgb 9.8 L D (13.0-17.5) gm/dL Hct 31.3 L (39.0-53.0) % MCV (80.0-100.0) fL RDW 16.8 H (11.5-15.5) % Blast Cells % % Neutrophils # (Manual) 33.30 H (1.3-7.7) k/uL Monocytes # (Manual) 1.53 H (0-1.0) k/uL Metamyelocytes # (Man) 1.15 H (0) k/uL Myelocytes # (Manual) 1.53 H (0) k/uL Promyelocytes # (Man) (0) k/uL Blast Cells # (Man) (0) k/uL Nucleated RBCs (0-0) /100 WBC Fibrinogen (200-500) mg/dL D-Dimer (<0.60) mg/L FEU Potassium 3.0 L (3.5-5.1) mmol/L Chloride 109 H (98-107) mmol/L BUN 26 H (9-20) mg/dL Glucose 139 H (74-99) mg/dL POC Glucose (mg/dL) (75-99) mg/dL Calcium 7.1 L (8.4-10.2) mg/dL Delta Bilirubin (0.0-0.2) mg/dL C-Reactive Protein (<10.0) mg/L Total Protein 4.3 L (6.3-8.2) g/dL Albumin 2.1 L (3.5-5.0) g/dL Urine Protein (Negative) Urine Blood (Negative) Ur Leukocyte Esterase (Negative) Urine RBC (0-5) /hpf Urine WBC (0-5) /hpf Urine WBC Clumps (None) /hpf Crossmatch Microbiology - Last 24 Hours (Table) 05/19/20 17:00 Urine Culture - Preliminary Urine,Clean Catch Assessment and Plan (1) GI bleed Narrative/Plan: 64-year-old male with multiple medical comorbidities including small cell lung cancer recently treated with chemotherapy who presented for shortness of breath and weakness. Patient has been treated for a lower extremity DVT and is status post IVC filter placement. The patient had been on anticoagulation and d eveloped epistaxis and hematuria and is now also having some painless bright red blood per rectum. He denies any abdominal pain. He does have a history of hemorrhoidal bleeding in the past. He believes his last colonoscopy was 6 years ago. The patient is status post administration of DDAVP. He is denying any dark colored vomitus or history of peptic ulcer disease. Unclear etiology of bleeding may be related to diverticula, AVM, hemorrhoidal bleeding or other etiology. bleeding appears to be slowing down with clear urine today and nonbloody bowel movement this morning. Current Visit: Yes Status: Acute Code(s): K92.2 - GASTROINTESTINAL HEMORRHAGE, UNSPECIFIED SNOMED Code(s): 10543284 (2) Anemia associated with acute blood loss Narrative/Plan: patient has been having epistaxis, hematuria as well as GI bleeding, All improved today. Current Visit: Yes Status: Acute Code(s): D62 - ACUTE POSTHEMORRHAGIC ANEMIA SNOMED Code(s): 920981975 (3) Right leg DVT Current Visit: Yes Status: Acute Code(s): I82.401 - ACUTE EMBOLISM AND THOMBOS UNSP DEEP VEINS OF R LOW EXTREM SNOMED Code(s): 847208529 (4) Small cell lung cancer Current Visit: Yes Status: Acute Priority: High Code(s): C34.90 - MALIGNANT NEOPLASM OF UNSP PART OF UNSP BRONCHUS OR LUNG SNOMED Code(s): 560890274 Plan: supportive care Continue to monitor CBC and transfuse as needed Continue Protonix therapy empirically Continue to monitor for signs or symptoms of GI bleeding Hematology/oncology following the patient Continue to hold any anticoagulation therapy Thank you for allowing us to participate in the care of the patient we will continue to follow
[2020-05-20 20:06] LABS: Glucose,Whole Blood 208 mg/dL (75-99)
[2020-05-20] MEDS: TAMSULOSIN 0.4 MG CAP.ER.24H PO SCH (20:07)
[2020-05-20] MEDS: POTASSIUM CHLORIDE 10 MEQ in WATER FOR INJECTION 1 100ML.BAG IVPB SCH ×4 (20:08→23:45)
[2020-05-20] MEDS: INSULIN DETEMIR (LEVEMIR) 100 UNIT/ML SYR SQ SCH (21:00)
[2020-05-21] MEDS: POTASSIUM CHLORIDE 10 MEQ in WATER FOR INJECTION 1 100ML.BAG IVPB SCH ×2 (00:15→01:45)
[2020-05-21 01:13] LABS: Anisocytosis Slight; HCT 26.4 % (39.0-53.0); HGB 8.9 gm/dL (13.0-17.5); MCH 31.5 pg (25.0-35.0); MCHC 33.7 g/dL (31.0-37.0); MCV 93.3 fL (80.0-100.0); Mean Platelet Volume 8.4; Platelet Count 218 k/uL (150-450); Poikilocytosis Slight; RBC 2.83 m/uL (4.30-5.90); RDW 16.3 % (11.5-15.5); WBC 34.5 k/uL (3.8-10.6)
[2020-05-21] MEDS: SODIUM CHLORIDE 0.9% 1,000 ML IV SCH ×2 (04:31→23:00)
--- NOTE | 2020-05-21 05:44 | PN ---
PROGRESS NOTE DATE OF SERVICE: 05/20/2020 REASON FOR FOLLOWUP: Leukocytosis, Pseudomonas bacteremia and a sacral pressure ulcer. INTERVAL HISTORY: The patient is currently afebrile. The patient is feeling better today. Breathing comfortably. Denies having any chest pain. Occasional cough. No nausea. No vomiting. No abdominal pain and no further bleeding per rectum. PHYSICAL EXAMINATION: Blood pressure is 105/67 with a pulse of 111, temperature 98.2. He is 95% on room air. General description is an elderly male lying in bed in no distress. RESPIRATORY SYSTEM: Unlabored breathing, clear to auscultation anteriorly. HEART: S1, S2. Regular rate and rhythm. ABDOMEN: Soft, no tenderness. Sacral area did have unstageable pressure ulcer with no necrotic tissue. LABS: Hemoglobin is 8.9, white count 34.7. BUN of 26, creatinine 1.08. Repeat urine is positive. Blood cultures pending. DIAGNOSTIC IMPRESSION AND PLAN: Patient with leukocytosis which is multifactorial in this patient with recent Pseudomonas bacteremia and Klebsiella urinary tract infection for which the patient received adequate antibiotic therapy. The patient overall clinical improvement on cefepime, Diflucan to continue. White count showing a downward trend and continue with supportive care. MMODL / IJN: [id number] /
[2020-05-21 06:16] LABS: Glucose,Whole Blood 168 mg/dL (75-99)
[2020-05-21] MEDS: INSULIN ASPART (NovoLOG) 100 UNIT/ML VIAL SQ SCH ×4 (06:56→21:42)
--- NOTE | 2020-05-21 08:01 | XR ---
EXAMINATION TYPE: XR chest 1V portable DATE OF EXAM: 05/21/2020 HISTORY: Shortness of breath. COMPARISON: 05/20/2020 TECHNIQUE: Single view of the chest is submitted. FINDINGS: Demonstrated are scattered senescent parenchymal change. Persistent patchy left lower lobe infiltrate unchanged from prior study. The heart is stable. Hilar and mediastinal structures are within normal limits. Degenerative changes are seen of the dorsal spine. IMPRESSION: 1. Persistent patchy left lower lobe infiltrate unchanged from prior study.
[2020-05-21] MEDS: MAG HYDROX/AL HYDROX/SIMETH 30 ML, LIDOCAINE VISCOUS 30 ML, diphenhydrAMINE ELIXIR 75 M... PO SCH ×12 (08:11→21:46)
[2020-05-21] MEDS: FLUCONAZOLE 100 MG TAB PO SCH (08:12)
[2020-05-21] MEDS: FUROSEMIDE 20 MG TAB PO SCH ×2 (08:12→16:45)
[2020-05-21] MEDS: NYSTATIN 100,000 UNIT/ML SUSP 500,000 UNIT/5 ML CUP PO SCH ×4 (08:13→21:46)
[2020-05-21] MEDS: DILTIAZEM ORAL 60 MG TAB PO SCH ×3 (08:13→22:58)
[2020-05-21] MEDS: METOPROLOL TARTRATE 50 MG TAB PO SCH ×2 (08:13→21:43)
[2020-05-21] MEDS: PANTOPRAZOLE 40 MG/10 ML VIAL IVP SCH ×2 (08:13→21:43)
[2020-05-21] MEDS: CEFEPIME 2 GM in SODIUM CHLORIDE 0.9% 100 ML IVPB SCH ×2 (08:14→21:49)
[2020-05-21 09:30] LABS: Anisocytosis Slight; HGB 8.7 gm/dL (13.0-17.5); Hypochromasia Slight; MCH 30.6 pg (25.0-35.0); MCHC 32.4 g/dL (31.0-37.0); MCV 94.5 fL (80.0-100.0); Mean Platelet Volume 8.2; Platelet Count 264 k/uL (150-450); Poikilocytosis Slight; RBC 2.86 m/uL (4.30-5.90); RDW 16.7 % (11.5-15.5); WBC 33.1 k/uL (3.8-10.6)
[2020-05-21 09:38] LABS: ALT 28 U/L (4-49); AST 41 U/L (17-59); African American GFR (CKD) >90 (>60 ml/min/1.73 sqM); Albumin 2.2 g/dL (3.5-5.0); Alkaline Phosphatase 110 U/L (38-126); Anion Gap 3 mmol/L; Blood Urea Nitrogen 24 mg/dL (9-20); Calcium 7.1 mg/dL (8.4-10.2); Carbon Dioxide 27 mmol/L (22-30); Chloride 108 mmol/L (98-107); Glucose 171 mg/dL (74-99); Non-African American GFR(CKD) >90 (>60 ml/min/1.73 sqM); Sodium 138 mmol/L (137-145); Total Bilirubin 0.8 mg/dL (0.2-1.3); Total Protein 4.7 g/dL (6.3-8.2)
[2020-05-21 09:48] LABS: Potassium 4.4 mmol/L (3.5-5.1)
[2020-05-21 11:10] LABS: Band Neutrophils % 3 %; Eosinophils # (M) 0.33 k/uL (0-0.7); Lymphocytes # (M) 1.66 k/uL (1.0-4.8); Metamyelocytes # (M) 0.99 k/uL (0); Metamyelocytes % 3 %; Monocytes # (M) 1.99 k/uL (0-1.0); Myelocytes # (M) 0.33 k/uL (0); Myelocytes % 1 %; Neutrophils % (M) 83 %; Nucleated Red Blood Cells 0 /100 WBC (0-0); Promyelocytes # (M) 0.33 k/uL (0); Promyelocytes % 1 %; Total Cells Counted 200; Toxic Granulation Present
[2020-05-21 11:11] LABS: Polychromasia Present
[2020-05-21] MEDS: HYDROcodone/APAP 5-325MG 1 EACH TAB PO PRN ×2 (11:35→22:59)
--- NOTE | 2020-05-21 11:58 | P.PN ---
Subjective Progress Note Date: 05/21/20 Principal diagnosis: Sepsis Hemoglobin is holding stable, No further bloody stool per patients overnight. afebrile, urine and blood culture repeats neg at this time. Objective - Vital Signs Vital signs: Vital Signs Temp 98.1 F 05/21/20 08:00 Pulse 154 H 05/21/20 08:00 Resp 20 05/21/20 08:00 BP 111/79 05/21/20 08:00 Pulse Ox 98 05/21/20 08:00 Intake & Output 05/20/20 05/21/20 05/21/20 18:59 06:59 18:59 Intake Total 310 700 240 Output Total 851 1525 750 Balance -541 -825 -510 Weight 89 kg Intake: Intake, IV Titration 700 Amount Cefepime 2 gm In Sodium 100 Chloride 0.9% 100 ml @ 25 mls/hr IVPB Q12HR [facility] Rx #:[id number] Potassium Chloride 10 meq 600 In Water For Injection 1 100ml.bag @ 100 mls/hr IVPB Q1HR [facility] Rx#: [id number] Oral 0 240 Blood Product 310 Rc As-1 Unit 310 [id number] Output: Urine 850 1525 750 Stool 1 Other: Voiding Method Indwelling Catheter Indwelling Catheter Indwelling Catheter # Bowel Movements 1 1 - Exam Yellow to occassional pink in lezama per nursing Patient more alert today Bandage on arm weeping less Mucus Membranes dry - Labs CBC & Chem 7: 05/21/20 09:08 05/21/20 09:08 Labs: Abnormal Lab Results - Last 24 Hours (Table) 05/19/20 05/19/20 05/20/20 Range/Units 06:53 17:05 12:20 WBC (3.8-10.6) k/uL RBC (4.30-5.90) m/uL Hgb (13.0-17.5) gm/dL Hct (39.0-53.0) % RDW (11.5-15.5) % Neutrophils # (Manual) (1.3-7.7) k/uL Monocytes # (Manual) (0-1.0) k/uL Metamyelocytes # (Man) (0) k/uL Myelocytes # (Manual) (0) k/uL Promyelocytes # (Man) (0) k/uL Haptoglobin 313.0 H (31.2-198.0) mg/dL Potassium (3.5-5.1) mmol/L Chloride (98-107) mmol/L BUN (9-20) mg/dL Glucose (74-99) mg/dL POC Glucose (mg/dL) 206 H (75-99) mg/dL Calcium (8.4-10.2) mg/dL Total Protein (6.3-8.2) g/dL Albumin (3.5-5.0) g/dL Stool Lactoferrin POSITIVE A (NEGATIVE) 05/20/20 05/20/20 05/20/20 Range/Units 16:56 18:17 18:17 WBC 34.7 H (3.8-10.6) k/uL RBC 2.91 L (4.30-5.90) m/uL Hgb 8.9 L (13.0-17.5) gm/dL Hct 27.1 L (39.0-53.0) % RDW 16.6 H (11.5-15.5) % Neutrophils # (Manual) 30.50 H (1.3-7.7) k/uL Monocytes # (Manual) (0-1.0) k/uL Metamyelocytes # (Man) 1.74 H (0) k/uL Myelocytes # (Manual) 1.39 H (0) k/uL Promyelocytes # (Man) (0) k/uL Haptoglobin (31.2-198.0) mg/dL Potassium 2.7 L* (3.5-5.1) mmol/L Chloride 109 H (98-107) mmol/L BUN 26 H (9-20) mg/dL Glucose 194 H (74-99) mg/dL POC Glucose (mg/dL) 212 H (75-99) mg/dL Calcium 7.2 L (8.4-10.2) mg/dL Total Protein 4.3 L (6.3-8.2) g/dL Albumin 2.0 L (3.5-5.0) g/dL Stool Lactoferrin (NEGATIVE) 05/20/20 05/21/20 05/21/20 Range/Units 20:03 00:38 06:14 WBC 34.5 H (3.8-10.6) k/uL RBC 2.83 L (4.30-5.90) m/uL Hgb 8.9 L (13.0-17.5) gm/dL Hct 26.4 L (39.0-53.0) % RDW 16.3 H (11.5-15.5) % Neutrophils # (Manual) (1.3-7.7) k/uL Monocytes # (Manual) (0-1.0) k/uL Metamyelocytes # (Man) (0) k/uL Myelocytes # (Manual) (0) k/uL Promyelocytes # (Man) (0) k/uL Haptoglobin (31.2-198.0) mg/dL Potassium (3.5-5.1) mmol/L Chloride (98-107) mmol/L BUN (9-20) mg/dL Glucose (74-99) mg/dL POC Glucose (mg/dL) 208 H 168 H (75-99) mg/dL Calcium (8.4-10.2) mg/dL Total Protein (6.3-8.2) g/dL Albumin (3.5-5.0) g/dL Stool Lactoferrin (NEGATIVE) 05/21/20 05/21/20 Range/Units 09:08 09:08 WBC 33.1 H (3.8-10.6) k/uL RBC 2.86 L (4.30-5.90) m/uL Hgb 8.7 L (13.0-17.5) gm/dL Hct 27.0 L (39.0-53.0) % RDW 16.7 H (11.5-15.5) % Neutrophils # (Manual) 28.40 H (1.3-7.7) k/uL Monocytes # (Manual) 1.99 H (0-1.0) k/uL Metamyelocytes # (Man) 0.99 H (0) k/uL Myelocytes # (Manual) 0.33 H (0) k/uL Promyelocytes # (Man) 0.33 H (0) k/uL Haptoglobin (31.2-198.0) mg/dL Potassium (3.5-5.1) mmol/L Chloride 108 H (98-107) mmol/L BUN 24 H (9-20) mg/dL Glucose 171 H (74-99) mg/dL POC Glucose (mg/dL) (75-99) mg/dL Calcium 7.1 L (8.4-10.2) mg/dL Total Protein 4.7 L (6.3-8.2) g/dL Albumin 2.2 L (3.5-5.0) g/dL Stool Lactoferrin (NEGATIVE) Microbiology - Last 24 Hours (Table) 05/19/20 17:00 Urine Culture - Final Urine,Clean Catch 05/20/20 06:54 Blood Culture - Preliminary Blood No Growth after 24 hours 05/19/20 22:18 Blood Culture - Preliminary Blood No Growth after 24 hours 05/19/20 11:02 Stool Culture - Preliminary Stool Assessment and Plan (1) Right leg DVT Current Visit: Yes Status: Acute Code(s): I82.401 - ACUTE EMBOLISM AND THOMBOS UNSP DEEP VEINS OF R LOW EXTREM SNOMED Code(s): 168489687 (2) Pancytopenia Current Visit: Yes Status: Acute Code(s): D61.818 - OTHER PANCYTOPENIA SNOMED Code(s): 469821660 (3) Small cell lung cancer Current Visit: Yes Status: Acute Priority: High Code(s): C34.90 - MALIGNANT NEOPLASM OF UNSP PART OF UNSP BRONCHUS OR LUNG SNOMED Code(s): 634669790 (4) Weakness Current Visit: Yes Status: Acute Code(s): R53.1 - WEAKNESS SNOMED Code(s): 13660577 Plan: Assessment and recommendations: Limited Stage Small Cell Lung Cancer: - Status Post cycle one Carbo/[employer]-16 (04/30-05/02) with Neulasta - On Hold for acute issues below Acute Right Lower Extremity DVT: - Switch to Eliquis - Status Post IVC filter 05.15.20 UTI/Bacteremia: Afebrile >72 - Repeat BC negative at 72 hours - Continued on IV antibiotics Thrombocytopenia: Stable Recovered 218K - Improved Status Post DDAVP .05/19 Will wait for results of Factor Xa, Factor VII, Fibringen antigen Plan: Differentials for hematuria likely related to hemorrhagic cystitis, repeat Urinalysis and Culture negative to date although abx have been re-initiated per ID - Continue on PPI IV BID improvement of bloody stools. Await GI evaluation. The picture does not give definitive proof of any coagulation problem. Serial CBC and Coags Discussed with patients and nursing. - Continue supportive care - Recheck CBC and CMP with mag now to reassess rate of bleeding and electrolyte decreases Telemedicine Visit today with increased rate of COVID cases, discussed with patients who agreed to telephone call. Assessment assisted through RN and . Total time spent with discussion of , review of new lab and diagnostics, and chart >17minutes
[2020-05-21 12:17] LABS: Glucose,Whole Blood 180 mg/dL (75-99)
--- NOTE | 2020-05-21 13:43 | P.GSCN ---
History of Present Illness Consult date: 05/21/20 History of present illness: CHIEF COMPLAINT: Sacral decubitus ulcer HISTORY OF PRESENT ILLNESS: This is a 64-year-old male with a known history of small cell lung cancer, Lambert Eaton syndrome, diabetes mellitus, hypertension and hyperlipidemia. He came into the hospital with worsening weakness, malaise and shortness of breath. Patient currently being treated for UTI with bacteremia, pulmonary edema, atrial fibrillation with rapid ventricular response no onset. He also has a right lower extremity DVT and had IVC filter placed during this admission. We have been consulted for a sacral decubitus ulcer. Her this is been ongoing for about 8 weeks. It had started small. The patient is bedridden and at the ulcer has worsened. There is eschar tissue pr esent. And patient will require debridement. PAST MEDICAL HISTORY: See list. PAST SURGICAL HISTORY: See list. MEDICATIONS: See list. ALLERGIES: See list. SOCIAL HISTORY: No illicit drug use. REVIEW OF SYSTEMS: CONSTITUTIONAL: Denies fever or chills. HEENT: Denies blurred vision, vision changes, or eye pain. Denies hemoptysis CARDIOVASCULAR: Denies chest pain or pressure. RESPIRATORY: No shortness of breath. GASTROINTESTINAL: See HPI for pertinent findings HEMATOLOGIC: Denies bleeding disorders. GENITOURINARY: Denies any blood in urine or increased urinary frequency. SKIN: Denies pruitis. Denies rash. PHYSICAL EXAM: VITAL SIGNS: Reviewed GENERAL: Well-developed in no acute distress. HEENT: No sclera icterus. Extraocular movements grossly intact. Moist buccal mucosa. Head is atraumatic, normocephalic. No nasal drainage. ABDOMEN: Soft. Nontender. Nondistended. NEUROLOGIC: Alert and oriented. Cranial nerves II through XII grossly intact. SKIN: Sacral decubitus ulcer about 5 inches in length and 3 inches in width. Ulcer is covered with eschar tissue LABORATORY DATA: WBC 33.1 hemoglobin 8.7 platelets 264 IMAGING: ASSESSMENT: 1. Sacral decubitus ulcer with eschar tissue 2. Small cell lung cancer 3. Lambert Eaton syndrome 4. Right lower extremity DVT status post IVC filter. On anticoagulation PLAN: -Patient scheduled for debridement of sacral ulcer on 05/23/[address] Cheatham Thank you for this consultation Physician Anesthesiologist Assistant note has been reviewed by physician. Signing provider agrees with the documented findings, assessment, and plan of care. Past Medical History Past Medical History: Cancer, Diabetes Mellitus, Hearing Disorder / Deafness, Hyperlipidemia, Hypertension, Osteoarthritis (OA) Additional Past Medical History / Comment(s): Enlarged prostate. I have a disease, not sure of the name but causes numbness, tingling and weakness in legs and arms, use a wheelcahir. No CPAP use. Tinnitus. Lung CA 04/2020 History of Any Multi-Drug Resistant Organisms: None Reported Past Surgical History: No Surgical Hx Reported Additional Past Surgical History / Comment(s): "Had some muscle taken out of left thigh area for testing". Lung biopsy Past Anesthesia/Blood Transfusion Reactions: No Reported Reaction Past Psychological History: No Psychological Hx Reported Smoking Status: Never smoker Past Alcohol Use History: None Reported Past Drug Use History: None Reported - Past Family History Mother Family Medical History: No Reported History Medications and Allergies Home Medications Medication Instructions Recorded Confirmed Type Tamsulosin HCl [Flomax] 0.4 mg PO HS 01/26/20 05/10/20 History Insulin Glargine [Lantus] 20 unit SQ HS 04/10/20 05/10/20 History Sennosides [Senna] 8.6 mg PO AC-BID 04/10/20 05/10/20 History Losartan Potassium 100 mg PO DAILY 04/25/20 05/10/20 History amLODIPine [Norvasc] 5 mg PO DAILY 04/25/20 05/10/20 History carvediloL [Coreg*] 12.5 mg PO AC-BID 04/25/20 05/10/20 History Spironolactone [Aldactone] 50 mg PO BID #120 tab 04/28/20 05/10/20 Rx Fluconazole [Diflucan] See Taper PO DIRECTED 05/10/20 05/10/20 History Mouth Compound Mix 5 ml PO QID 05/10/20 05/10/20 History Potassium Chloride ER [K-Dur 20] 40 meq PO BID 05/10/20 05/10/20 History polyethylene glycoL 3350 [Miralax] 17 gm PO DAILY PRN 05/10/20 05/10/20 History Allergies Allergy/AdvReac Type Severity Reaction Status Date / Time Penicillins Allergy Rash/Hives Verified 05/10/20 14:42 Surgical - Exam Vital Signs Temp Pulse Resp BP Pulse Ox 100 F H 109 H 20 106/69 97 05/10/20 12:59 05/10/20 12:59 05/10/20 12:59 05/10/20 12:59 05/10/20 12:59 Results - Labs 05/21/20 09:08 05/21/20 09:08 Abnormal Lab Results - Last 24 Hours (Table) 05/19/20 05/19/20 05/20/20 Range/Units 06:53 17:05 16:56 WBC (3.8-10.6) k/uL RBC (4.30-5.90) m/uL Hgb (13.0-17.5) gm/dL Hct (39.0-53.0) % RDW (11.5-15.5) % Neutrophils # (Manual) (1.3-7.7) k/uL Monocytes # (Manual) (0-1.0) k/uL Metamyelocytes # (Man) (0) k/uL Myelocytes # (Manual) (0) k/uL Promyelocytes # (Man) (0) k/uL Haptoglobin 313.0 H (31.2-198.0) mg/dL Potassium (3.5-5.1) mmol/L Chloride (98-107) mmol/L BUN (9-20) mg/dL Glucose (74-99) mg/dL POC Glucose (mg/dL) 212 H (75-99) mg/dL Calcium (8.4-10.2) mg/dL Total Protein (6.3-8.2) g/dL Albumin (3.5-5.0) g/dL Stool Lactoferrin POSITIVE A (NEGATIVE) 05/20/20 05/20/20 05/20/20 Range/Units 18:17 18:17 20:03 WBC 34.7 H (3.8-10.6) k/uL RBC 2.91 L (4.30-5.90) m/uL Hgb 8.9 L (13.0-17.5) gm/dL Hct 27.1 L (39.0-53.0) % RDW 16.6 H (11.5-15.5) % Neutrophils # (Manual) 30.50 H (1.3-7.7) k/uL Monocytes # (Manual) (0-1.0) k/uL Metamyelocytes # (Man) 1.74 H (0) k/uL Myelocytes # (Manual) 1.39 H (0) k/uL Promyelocytes # (Man) (0) k/uL Haptoglobin (31.2-198.0) mg/dL Potassium 2.7 L* (3.5-5.1) mmol/L Chloride 109 H (98-107) mmol/L BUN 26 H (9-20) mg/dL Glucose 194 H (74-99) mg/dL POC Glucose (mg/dL) 208 H (75-99) mg/dL Calcium 7.2 L (8.4-10.2) mg/dL Total Protein 4.3 L (6.3-8.2) g/dL Albumin 2.0 L (3.5-5.0) g/dL Stool Lactoferrin (NEGATIVE) 05/21/20 05/21/20 05/21/20 Range/Units 00:38 06:14 09:08 WBC 34.5 H (3.8-10.6) k/uL RBC 2.83 L (4.30-5.90) m/uL Hgb 8.9 L (13.0-17.5) gm/dL Hct 26.4 L (39.0-53.0) % RDW 16.3 H (11.5-15.5) % Neutrophils # (Manual) (1.3-7.7) k/uL Monocytes # (Manual) (0-1.0) k/uL Metamyelocytes # (Man) (0) k/uL Myelocytes # (Manual) (0) k/uL Promyelocytes # (Man) (0) k/uL Haptoglobin (31.2-198.0) mg/dL Potassium (3.5-5.1) mmol/L Chloride 108 H (98-107) mmol/L BUN 24 H (9-20) mg/dL Glucose 171 H (74-99) mg/dL POC Glucose (mg/dL) 168 H (75-99) mg/dL Calcium 7.1 L (8.4-10.2) mg/dL Total Protein 4.7 L (6.3-8.2) g/dL Albumin 2.2 L (3.5-5.0) g/dL Stool Lactoferrin (NEGATIVE) 05/21/20 05/21/20 Range/Units 09:08 11:58 WBC 33.1 H (3.8-10.6) k/uL RBC 2.86 L (4.30-5.90) m/uL Hgb 8.7 L (13.0-17.5) gm/dL Hct 27.0 L (39.0-53.0) % RDW 16.7 H (11.5-15.5) % Neutrophils # (Manual) 28.40 H (1.3-7.7) k/uL Monocytes # (Manual) 1.99 H (0-1.0) k/uL Metamyelocytes # (Man) 0.99 H (0) k/uL Myelocytes # (Manual) 0.33 H (0) k/uL Promyelocytes # (Man) 0.33 H (0) k/uL Haptoglobin (31.2-198.0) mg/dL Potassium (3.5-5.1) mmol/L Chloride (98-107) mmol/L BUN (9-20) mg/dL Glucose (74-99) mg/dL POC Glucose (mg/dL) 180 H (75-99) mg/dL Calcium (8.4-10.2) mg/dL Total Protein (6.3-8.2) g/dL Albumin (3.5-5.0) g/dL Stool Lactoferrin (NEGATIVE) Microbiology - Last 24 Hours (Table) 05/19/20 17:00 Urine Culture - Final Urine,Clean Catch 05/20/20 06:54 Blood Culture - Preliminary Blood No Growth after 24 hours 05/19/20 22:18 Blood Culture - Preliminary Blood No Growth after 24 hours 05/19/20 11:02 Stool Culture - Preliminary Stool Diabetes panel 05/20/20 05/21/20 Range/Units 18:17 09:08 Sodium 140 138 (137-145) mmol/L Potassium 2.7 L* 4.4 (3.5-5.1) mmol/L Chloride 109 H 108 H (98-107) mmol/L Carbon Dioxide 28 27 (22-30) mmol/L BUN 26 H 24 H (9-20) mg/dL Creatinine 1.08 0.80 (0.66-1.25) mg/dL Glucose 194 H 171 H (74-99) mg/dL Calcium 7.2 L 7.1 L (8.4-10.2) mg/dL AST 30 41 (17-59) U/L ALT 28 28 (4-49) U/L Alkaline Phosphatase 118 110 (38-126) U/L Total Protein 4.3 L 4.7 L (6.3-8.2) g/dL Albumin 2.0 L 2.2 L (3.5-5.0) g/dL Calcium panel 05/20/20 05/21/20 Range/Units 18:17 09:08 Calcium 7.2 L 7.1 L (8.4-10.2) mg/dL Albumin 2.0 L 2.2 L (3.5-5.0) g/dL Pituitary panel 05/20/20 05/21/20 Range/Units 18:17 09:08 Sodium 140 138 (137-145) mmol/L Potassium 2.7 L* 4.4 (3.5-5.1) mmol/L Chloride 109 H 108 H (98-107) mmol/L Carbon Dioxide 28 27 (22-30) mmol/L BUN 26 H 24 H (9-20) mg/dL Creatinine 1.08 0.80 (0.66-1.25) mg/dL Glucose 194 H 171 H (74-99) mg/dL Calcium 7.2 L 7.1 L (8.4-10.2) mg/dL Adrenal panel 05/20/20 05/21/20 Range/Units 18:17 09:08 Sodium 140 138 (137-145) mmol/L Potassium 2.7 L* 4.4 (3.5-5.1) mmol/L Chloride 109 H 108 H (98-107) mmol/L Carbon Dioxide 28 27 (22-30) mmol/L BUN 26 H 24 H (9-20) mg/dL Creatinine 1.08 0.80 (0.66-1.25) mg/dL Glucose 194 H 171 H (74-99) mg/dL Calcium 7.2 L 7.1 L (8.4-10.2) mg/dL Total Bilirubin 0.4 0.8 (0.2-1.3) mg/dL AST 30 41 (17-59) U/L ALT 28 28 (4-49) U/L Alkaline Phosphatase 118 110 (38-126) U/L Total Protein 4.3 L 4.7 L (6.3-8.2) g/dL Albumin 2.0 L 2.2 L (3.5-5.0) g/dL
--- NOTE | 2020-05-21 14:39 | P.PN ---
Subjective Progress Note Date: 05/21/20 Principal diagnosis: GI bleed, anemia of acute blood loss She was seen and examined at the bedside. His is also at the bedside with. He denies any further rectal bleeding that he knows of. States his last bowel movement was yesterday, his states there was no blood in the stool or rectal bleeding. He denies any abdominal pain, nausea, or vomiting. Objective - Vital Signs Vital signs: Vital Signs Temp 98.1 F 05/21/20 08:00 Pulse 154 H 05/21/20 08:00 Resp 20 05/21/20 08:00 BP 111/79 05/21/20 08:00 Pulse Ox 98 05/21/20 08:00 Intake & Output 05/20/20 05/21/20 05/21/20 18:59 06:59 18:59 Intake Total 310 700 240 Output Total 851 1525 Balance -541 -825 240 Weight 89 kg Intake: Intake, IV Titration 700 Amount Cefepime 2 gm In Sodium 100 Chloride 0.9% 100 ml @ 25 mls/hr IVPB Q12HR [facility] Rx #:[id number] Potassium Chloride 10 meq 600 In Water For Injection 1 100ml.bag @ 100 mls/hr IVPB Q1HR [facility] Rx#: [id number] Oral 0 240 Blood Product 310 Rc As-1 Unit 310 [id number] Output: Urine 850 1525 Stool 1 Other: Voiding Method Indwelling Catheter Indwelling Catheter # Bowel Movements 1 - Exam General appearance: The patient is alert, oriented, in no acute distress. HET: Head is normocephalic and atraumatic. Conjunctiva pink. Sclera anicteric. Neck: Supple without lymphadenopathy. Abdomen: Soft, nontender, nondistended with bowel sounds. No guarding or rigidity. Extremities: Normal skin color and turgor. Bilateral lower extremity edema. Neurological: No focal deficits. Alert and oriented 3. - Labs CBC & Chem 7: 05/21/20 09:08 05/21/20 09:08 Labs: Abnormal Lab Results - Last 24 Hours (Table) 05/19/20 05/20/20 05/20/20 Range/Units 17:05 06:54 06:54 WBC (3.8-10.6) k/uL RBC (4.30-5.90) m/uL Hgb (13.0-17.5) gm/dL Hct (39.0-53.0) % RDW (11.5-15.5) % Neutrophils # (Manual) 33.30 H (1.3-7.7) k/uL Monocytes # (Manual) 1.53 H (0-1.0) k/uL Metamyelocytes # (Man) 1.15 H (0) k/uL Myelocytes # (Manual) 1.53 H (0) k/uL Potassium 3.0 L (3.5-5.1) mmol/L Chloride 109 H (98-107) mmol/L BUN 26 H (9-20) mg/dL Glucose 139 H (74-99) mg/dL POC Glucose (mg/dL) (75-99) mg/dL Calcium 7.1 L (8.4-10.2) mg/dL Total Protein 4.3 L (6.3-8.2) g/dL Albumin 2.1 L (3.5-5.0) g/dL Stool Lactoferrin POSITIVE A (NEGATIVE) 05/20/20 05/20/20 05/20/20 Range/Units 12:20 16:56 18:17 WBC 34.7 H (3.8-10.6) k/uL RBC 2.91 L (4.30-5.90) m/uL Hgb 8.9 L (13.0-17.5) gm/dL Hct 27.1 L (39.0-53.0) % RDW 16.6 H (11.5-15.5) % Neutrophils # (Manual) 30.50 H (1.3-7.7) k/uL Monocytes # (Manual) (0-1.0) k/uL Metamyelocytes # (Man) 1.74 H (0) k/uL Myelocytes # (Manual) 1.39 H (0) k/uL Potassium (3.5-5.1) mmol/L Chloride (98-107) mmol/L BUN (9-20) mg/dL Glucose (74-99) mg/dL POC Glucose (mg/dL) 206 H 212 H (75-99) mg/dL Calcium (8.4-10.2) mg/dL Total Protein (6.3-8.2) g/dL Albumin (3.5-5.0) g/dL Stool Lactoferrin (NEGATIVE) 05/20/20 05/20/20 05/21/20 Range/Units 18:17 20:03 00:38 WBC 34.5 H (3.8-10.6) k/uL RBC 2.83 L (4.30-5.90) m/uL Hgb 8.9 L (13.0-17.5) gm/dL Hct 26.4 L (39.0-53.0) % RDW 16.3 H (11.5-15.5) % Neutrophils # (Manual) (1.3-7.7) k/uL Monocytes # (Manual) (0-1.0) k/uL Metamyelocytes # (Man) (0) k/uL Myelocytes # (Manual) (0) k/uL Potassium 2.7 L* (3.5-5.1) mmol/L Chloride 109 H (98-107) mmol/L BUN 26 H (9-20) mg/dL Glucose 194 H (74-99) mg/dL POC Glucose (mg/dL) 208 H (75-99) mg/dL Calcium 7.2 L (8.4-10.2) mg/dL Total Protein 4.3 L (6.3-8.2) g/dL Albumin 2.0 L (3.5-5.0) g/dL Stool Lactoferrin (NEGATIVE) 05/21/20 Range/Units 06:14 WBC (3.8-10.6) k/uL RBC (4.30-5.90) m/uL Hgb (13.0-17.5) gm/dL Hct (39.0-53.0) % RDW (11.5-15.5) % Neutrophils # (Manual) (1.3-7.7) k/uL Monocytes # (Manual) (0-1.0) k/uL Metamyelocytes # (Man) (0) k/uL Myelocytes # (Manual) (0) k/uL Potassium (3.5-5.1) mmol/L Chloride (98-107) mmol/L BUN (9-20) mg/dL Glucose (74-99) mg/dL POC Glucose (mg/dL) 168 H (75-99) mg/dL Calcium (8.4-10.2) mg/dL Total Protein (6.3-8.2) g/dL Albumin (3.5-5.0) g/dL Stool Lactoferrin (NEGATIVE) Microbiology - Last 24 Hours (Table) 05/20/20 06:54 Blood Culture - Preliminary Blood No Growth after 24 hours 05/19/20 22:18 Blood Culture - Preliminary Blood No Growth after 24 hours 05/19/20 11:02 Stool Culture - Preliminary Stool 05/19/20 17:00 Urine Culture - Preliminary Urine,Clean Catch Assessment and Plan (1) GI bleed Narrative/Plan: 64-year-old male with multiple medical comorbidities including small cell lung cancer recently treated with chemotherapy who presented for shortness of breath and weakness. Patient has been treated for a lower extremity DVT and is status post IVC filter placement. The patient had been on anticoagulation and developed epistaxis and hematuria and is now also having some painless bright red blood per rectum. He denies any abdominal pain. He does have a history of hemorrhoidal bleeding in the past. He believes his last colonoscopy was 6 years ago. The patient is status post administration of DDAVP. He is denying any dark colored vomitus or history of peptic ulcer disease. Unclear etiology of b leeding may be related to diverticula, AVM, hemorrhoidal bleeding or other etiology. bleeding appears to be slowing down with clear urine today and nonbloody bowel movement yesterday. Current Visit: Yes Status: Acute Code(s): K92.2 - GASTROINTESTINAL HEMORRHAGE, UNSPECIFIED SNOMED Code(s): 88652788 (2) Anemia associated with acute blood loss Narrative/Plan: Patient has been having epistaxis, hematuria as well as GI bleeding. All improved today Current Visit: Yes Status: Acute Code(s): D62 - ACUTE POSTHEMORRHAGIC ANEMIA SNOMED Code(s): 013200522 (3) Small cell lung cancer Current Visit: Yes Status: Acute Priority: High Code(s): C34.90 - MALIGNANT NEOPLASM OF UNSP PART OF UNSP BRONCHUS OR LUNG SNOMED Code(s): 494869498 (4) Right leg DVT Current Visit: Yes Status: Acute Code(s): I82.401 - ACUTE EMBOLISM AND THOMBOS UNSP DEEP VEINS OF R LOW EXTREM SNOMED Code(s): 006228704 Plan: supportive care Continue to monitor CBC and transfuse as needed Continue Protonix therapy empirically Continue to monitor for signs or symptoms of GI bleeding Hematology/oncology following the patient Continue to hold any anticoagulation therapy Thank you for allowing us to participate in the care of the patient we will continue to follow The impression and plan of care has been dictated as directed. I performed a history and examination of this patient, discussed the same with the dictator. I agree with the dictator's note ,documented as a scribe. Any additional findings or plans will be noted.
--- NOTE | 2020-05-21 14:52 | P.PN ---
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 He is approx 7 days s/p his first cycle of carboplatin and etoposide and feels his symptoms have worsened since that time. He has continued to experience severe weakness over the past few months. On presentation he was tachycardic and febrile, WBC 0.8k, Hgb 10.5, plt 36. CTA performed showed no PE and interval enlargement of his hilar mass to 6 cm. He was started on vancomycin and IV fluids, this morning pt complains of continued wet cough and shortness of breath. Complains of just generalized weakness, weak cough,shortness of breath. Maintaining O2 sats in the 90s on 5 L nasal cannula. Afebrile. 05/18/2020 Developed oozing around the skin tear on left forearm, Tranexamic acid applied, improving. Eliquis discontinued, patient has IVC filter. Hemoglobin dropped to 8.1. WBC trending down, 55.1,oncology following.Uncontrolled A. fib, on Cardizem. Telemetry reporting heart rates up into the 150s, currently in the 1 teens. Renal function improving, hypokalemia, potassium 3. 05/21/2020 transfused over the weekend, hemoglobin currently 8.7, platelets 264. No further bleeding, no bloody stools reported. Left forearm site weeping less, hematuria significantly improved. Maintained on cefepime,WBC trending down, 33.1. Afebrile. Repeat blood cultures reporting no growth at 24 hours, repeat urine cultures reporting no growth after 18 hours. Diuresing well on oral Lasix with 24-hour I&O reflecting a negative fluid balance .BUN and creatinine trending down to 24/0.8. Shortness of breath improving. Maintaining O2 sats in the 90s on room air. Telemetry reporting atrial fibrillation with uncontrolled heart rate, on oral Cardizem. Objective - Vital Signs Vital signs: Vital Signs Temp 98.1 F 05/21/20 08:00 Pulse 154 H 05/21/20 08:00 Resp 20 05/21/20 08:00 BP 111/79 05/21/20 08:00 Pulse Ox 98 05/21/20 08:00 Intake & Output 05/20/20 05/21/20 05/21/20 18:59 06:59 18:59 Intake Total 310 700 240 Output Total 851 1525 750 Balance -026 -823 -455 Weight 89 kg Intake: Intake, IV Titration 700 Amount Cefepime 2 gm In Sodium 100 Chloride 0.9% 100 ml @ 25 mls/hr IVPB Q12HR [facility] Rx #:[id number] Potassium Chloride 10 meq 600 In Water For Injection 1 100ml.bag @ 100 mls/hr IVPB Q1HR [facility] Rx#: [id number] Oral 0 240 Blood Product 310 Rc As-1 Unit 310 [id number] Output: Urine 850 1525 750 Stool 1 Other: Voiding Method Indwelling Catheter Indwelling Catheter Indwelling Catheter # Bowel Movements 1 - Exam General: Sitting up in bed, alert and oriented 3, NAD. Vitals reviewed Eyes: PERRL, EOMI, conjunctiva normal HENT: normocephalic, mucus membranes moist Neck: supple, no JVD Lungs: Increased respiratory effort, no wheezes. Bibasilar crackles CV: Regular rate and rhythm, no murmur. Tachycardic ,Peripheral pulses 2+. Improving bilateral LE edema, worse on the right lower extremity. Abdomen: soft, nondistended, no organomegaly, positive bowel sounds. Skin: warm and dry, sacral decubitus ulcer with eschar tissue, measurements as per nursing. ( reports worsening over the last 8 weeks), Neuro: Cranial nerves II through XII grossly intact, no focal deficits. Microbiology 05/19/20 17:00 Urine,Clean Catch Urine Culture - Final 05/20/20 06:54 Blood Blood Culture - Preliminary No Growth after 24 hours 05/19/20 22:18 Blood Blood Culture - Preliminary No Growth after 24 hours 05/19/20 11:02 Stool Stool Culture - Preliminary 05/11/20 12:02 Blood Blood Culture - Final No Growth after 144 hours 05/10/20 13:51 Urine,Voided Urine Culture - Final Klebsiella pneumoniae 05/10/20 16:20 Blood Blood Culture Gram Stain - Final 05/10/20 16:20 Blood Blood Culture - Final Pseudomonas aeruginosa 05/10/20 16:20 Blood Blood Culture - Final - Labs CBC & Chem 7: 05/21/20 09:08 05/21/20 09:08 Labs: Abnormal Lab Results - Last 24 Hours (Table) 05/19/20 05/19/20 05/20/20 Range/Units 06:53 17:05 12:20 WBC (3.8-10.6) k/uL RBC (4.30-5.90) m/uL Hgb (13.0-17.5) gm/dL Hct (39.0-53.0) % RDW (11.5-15.5) % Neutrophils # (Manual) (1.3-7.7) k/uL Monocytes # (Manual) (0-1.0) k/uL Metamyelocytes # (Man) (0) k/uL Myelocytes # (Manual) (0) k/uL Promyelocytes # (Man) (0) k/uL Haptoglobin 313.0 H (31.2-198.0) mg/dL Potassium (3.5-5.1) mmol/L Chloride (98-107) mmol/L BUN (9-20) mg/dL Glucose (74-99) mg/dL POC Glucose (mg/dL) 206 H (75-99) mg/dL Calcium (8.4-10.2) mg/dL Total Protein (6.3-8.2) g/dL Albumin (3.5-5.0) g/dL Stool Lactoferrin POSITIVE A (NEGATIVE) 05/20/20 05/20/20 05/20/20 Range/Units 16:56 18:17 18:17 WBC 34.7 H (3.8-10.6) k/uL RBC 2.91 L (4.30-5.90) m/uL Hgb 8.9 L (13.0-17.5) gm/dL Hct 27.1 L (39.0-53.0) % RDW 16.6 H (11.5-15.5) % Neutrophils # (Manual) 30.50 H (1.3-7.7) k/uL Monocytes # (Manual) (0-1.0) k/uL Metamyelocytes # (Man) 1.74 H (0) k/uL Myelocytes # (Manual) 1.39 H (0) k/uL Promyelocytes # (Man) (0) k/uL Haptoglobin (31.2-198.0) mg/dL Potassium 2.7 L* (3.5-5.1) mmol/L Chloride 109 H (98-107) mmol/L BUN 26 H (9-20) mg/dL Glucose 194 H (74-99) mg/dL POC Glucose (mg/dL) 212 H (75-99) mg/dL Calcium 7.2 L (8.4-10.2) mg/dL Total Protein 4.3 L (6.3-8.2) g/dL Albumin 2.0 L (3.5-5.0) g/dL Stool Lactoferrin (NEGATIVE) 05/20/20 05/21/20 05/21/20 Range/Units 20:03 00:38 06:14 WBC 34.5 H (3.8-10.6) k/uL RBC 2.83 L (4.30-5.90) m/uL Hgb 8.9 L (13.0-17.5) gm/dL Hct 26.4 L (39.0-53.0) % RDW 16.3 H (11.5-15.5) % Neutrophils # (Manual) (1.3-7.7) k/uL Monocytes # (Manual) (0-1.0) k/uL Metamyelocytes # (Man) (0) k/uL Myelocytes # (Manual) (0) k/uL Promyelocytes # (Man) (0) k/uL Haptoglobin (31.2-198.0) mg/dL Potassium (3.5-5.1) mmol/L Chloride (98-107) mmol/L BUN (9-20) mg/dL Glucose (74-99) mg/dL POC Glucose (mg/dL) 208 H 168 H (75-99) mg/dL Calcium (8.4-10.2) mg/dL Total Protein (6.3-8.2) g/dL Albumin (3.5-5.0) g/dL Stool Lactoferrin (NEGATIVE) 05/21/20 05/21/20 Range/Units 09:08 09:08 WBC 33.1 H (3.8-10.6) k/uL RBC 2.86 L (4.30-5.90) m/uL Hgb 8.7 L (13.0-17.5) gm/dL Hct 27.0 L (39.0-53.0) % RDW 16.7 H (11.5-15.5) % Neutrophils # (Manual) 28.40 H (1.3-7.7) k/uL Monocytes # (Manual) 1.99 H (0-1.0) k/uL Metamyelocytes # (Man) 0.99 H (0) k/uL Myelocytes # (Manual) 0.33 H (0) k/uL Promyelocytes # (Man) 0.33 H (0) k/uL Haptoglobin (31.2-198.0) mg/dL Potassium (3.5-5.1) mmol/L Chloride 108 H (98-107) mmol/L BUN 24 H (9-20) mg/dL Glucose 171 H (74-99) mg/dL POC Glucose (mg/dL) (75-99) mg/dL Calcium 7.1 L (8.4-10.2) mg/dL Total Protein 4.7 L (6.3-8.2) g/dL Albumin 2.2 L (3.5-5.0) g/dL Stool Lactoferrin (NEGATIVE) Microbiology - Last 24 Hours (Table) 05/19/20 17:00 Urine Culture - Final Urine,Clean Catch 05/20/20 06:54 Blood Culture - Preliminary Blood No Growth after 24 hours 05/19/20 22:18 Blood Culture - Preliminary Blood No Growth after 24 hours 05/19/20 11:02 Stool Culture - Preliminary Stool Assessment and Plan Assessment: (1) Severe sepsis with acute organ dysfunction due to acute UTI with Klebsiella pneumoniae, bacteremia with pseudomonas aeruginosa Current Visit: Yes Status: Acute Code(s): A41.52 - SEPSIS DUE TO PSEUDOMONAS; R65.20 - SEVERE SEPSIS WITHOUT SEPTIC SHOCK SNOMED Code(s): 600296662880491 (2) Lambert-Eaton myasthenic syndrome Current Visit: Yes Status: Acute Code(s): G70.80 - LAMBERT-EATON SYNDROME, UNSPECIFIED SNOMED Code(s): 71500575 (3) Cavitary lesion of lung Current Visit: Yes Status: Acute Code(s): J98.4 - OTHER DISORDERS OF LUNG SNOMED Code(s): 575151613 (4) Chemotherapy induced neutropenia Current Visit: Yes Status: Acute Code(s): D70.1 - AGRANULOCYTOSIS SECONDARY TO CANCER CHEMOTHERAPY; T45.1X5A - ADVERSE EFFECT OF ANTINEOPLASTIC AND IMMUNOSUP DRUGS, INIT SNOMED Code(s): 243430706 (5) Pancytopenia Current Visit: Yes Status: Acute Code(s): D61.818 - OTHER PANCYTOPENIA SNOMED Code(s): 691601606 (6) Right leg DVT, status post IVC filter placement Current Visit: Yes Status: Acute Code(s): I82.401 - ACUTE EMBOLISM AND THOMBOS UNSP DEEP VEINS OF R LOW EXTREM SNOMED Code(s): 073430808 (7) Small cell lung cancer Current Visit: Yes Status: Acute Priority: High Code(s): C34.90 - MALIGNANT NEOPLASM OF UNSP PART OF UNSP BRONCHUS OR LUNG SNOMED Code(s): 471698251 (8) Pressure ulcer of sacral region, stage 2 Current Visit: No Status: Acute Code(s): L89.152 - PRESSURE ULCER OF SACRAL REGION, STAGE 2 SNOMED Code(s): 596180546 (9) Type 2 diabetes mellitus Current Visit: No Status: Acute Code(s): E11.9 - TYPE 2 DIABETES MELLITUS WITHOUT COMPLICATIONS SNOMED Code(s): 85095465 (10) hypokalemia (11) pulmonary edema secondary to chemotherapy (12) CAD (13) A. fib with RVR, new onset. (14) sacral decubitus ulcer, present on admission, reports worsening over the last 8 weeks. Plan: Continue on current medication regime ,monitoring and symptomatic treatment. Remains off of Eliquis with IVC filter placement this admission , as per oncology. Antiarrhythmics as per cardiology .Continues on Oral diuretics. Sacral decubitus worsening, surgical consult in place regarding potential debridement. Discussed with both patient and at bedside, regarding continuing treatment, quality of life , hospice. Patient's wishes to discuss options with Dr. Farah. The impression and plan of care has been dictated as directed. : I performed a history and examination of this patient, discussed the same with the dictator. I agree with the dictator's note ,documented as a scribe. Any additional findings or plans will be noted.
[2020-05-21 16:59] LABS: Glucose,Whole Blood 158 mg/dL (75-99)
[2020-05-21 21:02] LABS: Glucose,Whole Blood 145 mg/dL (75-99)
[2020-05-21] MEDS: TAMSULOSIN 0.4 MG CAP.ER.24H PO SCH (21:43)
[2020-05-21] MEDS: INSULIN DETEMIR (LEVEMIR) 100 UNIT/ML SYR SQ SCH (21:44)
--- NOTE | 2020-05-22 03:39 | PN ---
PROGRESS NOTE DATE OF SERVICE: 05/21/2020 REASON FOR FOLLOWUP: Leukocytosis. INTERVAL HISTORY: The patient is currently afebrile. The patient is breathing more comfortably. The patient denies having any chest pain or cough. No nausea, no vomiting. No abdominal pain and no further bleeding per rectum. PHYSICAL EXAMINATION: Blood pressure 93/58 with a pulse of 94, temperature 97.5. He is 97% on room air. General description is an elderly male lying in bed in no distress. RESPIRATORY SYSTEM: Unlabored breathing, decreased breath sounds at the bases. No wheeze. HEART: S1, S2. Regular rate and rhythm. ABDOMEN: Soft. No tenderness. LABS: Hemoglobin 8.7, white count 33.1 creatinine 0.80. Blood culture and urine culture so far negative. DIAGNOSTIC IMPRESSION AND PLAN: Patient with leukocytosis, multifactorial in this patient who did have active bleeding per rectum. However, also have a Pseudomonas pneumonia and antibiotic exposure. The patient is currently responding to the cefepime and Diflucan to continue and monitor clinical course closely. MMODL / IJN: [id number] /
[2020-05-22 06:30] LABS: Glucose,Whole Blood 51 mg/dL (75-99)
[2020-05-22 06:51] LABS: Glucose,Whole Blood 69 mg/dL (75-99)
[2020-05-22] MEDS: INSULIN ASPART (NovoLOG) 100 UNIT/ML VIAL SQ SCH ×4 (06:53→21:46)
[2020-05-22] MEDS: CEFEPIME 2 GM in SODIUM CHLORIDE 0.9% 100 ML IVPB SCH ×2 (09:03→21:55)
[2020-05-22] MEDS: METOPROLOL TARTRATE 50 MG TAB PO SCH ×2 (09:04→21:33)
[2020-05-22] MEDS: PANTOPRAZOLE 40 MG/10 ML VIAL IVP SCH ×2 (09:04→21:36)
[2020-05-22] MEDS: NYSTATIN 100,000 UNIT/ML SUSP 500,000 UNIT/5 ML CUP PO SCH ×4 (09:05→23:00)
[2020-05-22] MEDS: DILTIAZEM ORAL 60 MG TAB PO SCH ×3 (09:05→22:59)
[2020-05-22] MEDS: FLUCONAZOLE 100 MG TAB PO SCH (09:05)
[2020-05-22] MEDS: FUROSEMIDE 20 MG TAB PO SCH ×2 (09:05→15:30)
[2020-05-22] MEDS: MAG HYDROX/AL HYDROX/SIMETH 30 ML, LIDOCAINE VISCOUS 30 ML, diphenhydrAMINE ELIXIR 75 M... PO SCH ×12 (09:06→21:47)
[2020-05-22 09:35] LABS: ALT 26 U/L (4-49); AST 27 U/L (17-59); African American GFR (CKD) >90 (>60 ml/min/1.73 sqM); Alkaline Phosphatase 100 U/L (38-126); Anion Gap 5 mmol/L; Blood Urea Nitrogen 24 mg/dL (9-20); Carbon Dioxide 30 mmol/L (22-30); Chloride 104 mmol/L (98-107); Glucose 68 mg/dL (74-99); Non-African American GFR(CKD) 81 (>60 ml/min/1.73 sqM); Potassium 2.8 mmol/L (3.5-5.1); Sodium 139 mmol/L (137-145); Total Bilirubin 0.4 mg/dL (0.2-1.3); Total Protein 4.2 g/dL (6.3-8.2)
[2020-05-22 10:00] LABS: Anisocytosis Slight; HCT 25.9 % (39.0-53.0); HGB 8.3 gm/dL (13.0-17.5); MCH 30.3 pg (25.0-35.0); MCHC 31.9 g/dL (31.0-37.0); MCV 95.1 fL (80.0-100.0); Mean Platelet Volume 8.5; Platelet Count 224 k/uL (150-450); RBC 2.72 m/uL (4.30-5.90); RDW 16.3 % (11.5-15.5)
[2020-05-22] MEDS ORDERED: Potassium Replacement Protocol 1 EACH MISC MISCELLANE PRN (10:19)
[2020-05-22] MEDS ORDERED: Magnesium Replacement Protocol 1 EACH MISC MISCELLANE PRN (10:26)
[2020-05-22 10:42] LABS: Band Neutrophils % 4 %; Metamyelocytes # (M) 0.75 k/uL (0); Metamyelocytes % 3 %; Myelocytes # (M) 1.25 k/uL (0); Myelocytes % 5 %; Neutrophils % (M) 78 %; Nucleated Red Blood Cells 0 /100 WBC (0-0); Total Cells Counted 200
--- NOTE | 2020-05-22 11:47 | P.PN ---
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 He is approx 7 days s/p his first cycle of carboplatin and etoposide and feels his symptoms have worsened since that time. He has continued to experience severe weakness over the past few months. On presentation he was tachycardic and febrile, WBC 0.8k, Hgb 10.5, plt 36. CTA performed showed no PE and interval enlargement of his hilar mass to 6 cm. He was started on vancomycin and IV fluids, this morning pt complains of continued wet cough and shortness of breath. Complains of just generalized weakness, weak cough,shortness of breath. Maintaining O2 sats in the 90s on 5 L nasal cannula. Afebrile. 05/18/2020 Developed oozing around the skin tear on left forearm, Tranexamic acid applied, improving. Eliquis discontinued, patient has IVC filter. Hemoglobin dropped to 8.1. WBC trending down, 55.1,oncology following.Uncontrolled A. fib, on Cardizem. Telemetry reporting heart rates up into the 150s, currently in the 1 teens. Renal function improving, hypokalemia, potassium 3. 05/21/2020 transfused over the weekend, hemoglobin currently 8.7, platelets 264. No further bleeding, no bloody stools reported. Left forearm site weeping less, hematuria significantly improved. Maintained on cefepime,WBC trending down, 33.1. Afebrile. Repeat blood cultures reporting no growth at 24 hours, repeat urine cultures reporting no growth after 18 hours. Diuresing well on oral Lasix with 24-hour I&O reflecting a negative fluid balance .BUN and creatinine trending down to 24/0.8. Shortness of breath improving. Maintaining O2 sats in the 90s on room air. Telemetry reporting atrial fibrillation with uncontrolled heart rate, on oral Cardizem. 05/22/2020 Evaluated by surgery yesterday with surgical debridement scheduled for tomorrow. Continues on cefepime and Diflucan. Afebrile, WBC continues trending down to 25. Hemoglobin and platelets down to 8.3 and 224.No further oozing from left forearm site this morning. Diuresing well on oral Lasix, creatinine 0.98. Potassium 2.8, magnesium level ordered. Uncontrolled A. fib with borderline hypotension this morning .Denies shortness of breath this morning, maintaining O2 sats in the mid to high 90s on room air. Objective - Vital Signs Vital signs: Vital Signs Temp 97.3 F L 05/22/20 04:00 Pulse 93 05/22/20 04:00 Resp 18 05/22/20 04:00 BP 100/64 05/22/20 04:00 Pulse Ox 94 L 05/22/20 04:00 Intake & Output 05/21/20 05/22/20 05/22/20 18:59 06:59 18:59 Intake Total 670 Output Total 750 0 350 Balance -80 -2049 Weight 88.7 kg Intake: IV 180 0.9 80 Cefepime 2 gm In Sodium 100 Chloride 0.9% 100 ml @ 25 mls/hr IVPB Q12HR [facility] Rx #:[id number] Oral 490 Output: Urine 750 2049 350 Other: Voiding Method Indwelling Catheter Indwelling Catheter # Bowel Movements 1 - Exam General: Sitting up in bed, alert and oriented 3, NAD. Vitals reviewed Eyes: PERRL, EOMI, conjunctiva normal HENT: normocephalic, mucus membranes moist Neck: supple, no JVD Lungs: Increased respiratory effort, no wheezes. Bibasilar crackles CV: Regular rate and rhythm, no murmur. Tachycardic ,Peripheral pulses 2+. Improving bilateral LE edema. Abdomen: soft, nondistended, no organomegaly, positive bowel sounds. Skin: warm and dry, sacral decubitus ulcer dressing clean dry and intact Neuro: Cranial nerves II through XII grossly intact, no focal deficits. Microbiology 05/20/20 06:54 Blood Blood Culture - Preliminary No Growth after 48 hours 05/19/20 22:18 Blood Blood Culture - Preliminary No Growth after 48 hours 05/19/20 17:00 Urine,Clean Catch Urine Culture - Final 05/19/20 11:02 Stool Stool Culture - Preliminary 05/11/20 12:02 Blood Blood Culture - Final No Growth after 144 hours 05/10/20 13:51 Urine,Voided Urine Culture - Final Klebsiella pneumoniae 05/10/20 16:20 Blood Blood Culture Gram Stain - Final 05/10/20 16:20 Blood Blood Culture - Final Pseudomonas aeruginosa 05/10/20 16:20 Blood Blood Culture - Final - Labs CBC & Chem 7: 05/22/20 07:53 05/22/20 07:53 Labs: Abnormal Lab Results - Last 24 Hours (Table) 05/19/20 05/21/20 05/21/20 Range/Units 06:53 09:08 09:08 WBC 33.1 H (3.8-10.6) k/uL RBC 2.86 L (4.30-5.90) m/uL Hgb 8.7 L (13.0-17.5) gm/dL Hct 27.0 L (39.0-53.0) % RDW 16.7 H (11.5-15.5) % Neutrophils # (Manual) 28.40 H (1.3-7.7) k/uL Monocytes # (Manual) 1.99 H (0-1.0) k/uL Metamyelocytes # (Man) 0.99 H (0) k/uL Myelocytes # (Manual) 0.33 H (0) k/uL Promyelocytes # (Man) 0.33 H (0) k/uL Haptoglobin 313.0 H (31.2-198.0) mg/dL Chloride 108 H (98-107) mmol/L BUN 24 H (9-20) mg/dL Glucose 171 H (74-99) mg/dL POC Glucose (mg/dL) (75-99) mg/dL Calcium 7.1 L (8.4-10.2) mg/dL Total Protein 4.7 L (6.3-8.2) g/dL Albumin 2.2 L (3.5-5.0) g/dL Procalcitonin (0.02-0.09) ng/mL 05/21/20 05/21/20 05/21/20 Range/Units 09:08 11:58 16:50 WBC (3.8-10.6) k/uL RBC (4.30-5.90) m/uL Hgb (13.0-17.5) gm/dL Hct (39.0-53.0) % RDW (11.5-15.5) % Neutrophils # (Manual) (1.3-7.7) k/uL Monocytes # (Manual) (0-1.0) k/uL Metamyelocytes # (Man) (0) k/uL Myelocytes # (Manual) (0) k/uL Promyelocytes # (Man) (0) k/uL Haptoglobin (31.2-198.0) mg/dL Chloride (98-107) mmol/L BUN (9-20) mg/dL Glucose (74-99) mg/dL POC Glucose (mg/dL) 180 H 158 H (75-99) mg/dL Calcium (8.4-10.2) mg/dL Total Protein (6.3-8.2) g/dL Albumin (3.5-5.0) g/dL Procalcitonin 0.37 H (0.02-0.09) ng/mL 05/21/20 05/22/20 05/22/20 Range/Units 20:59 06:28 06:48 WBC (3.8-10.6) k/uL RBC (4.30-5.90) m/uL Hgb (13.0-17.5) gm/dL Hct (39.0-53.0) % RDW (11.5-15.5) % Neutrophils # (Manual) (1.3-7.7) k/uL Monocytes # (Manual) (0-1.0) k/uL Metamyelocytes # (Man) (0) k/uL Myelocytes # (Manual) (0) k/uL Promyelocytes # (Man) (0) k/uL Haptoglobin (31.2-198.0) mg/dL Chloride (98-107) mmol/L BUN (9-20) mg/dL Glucose (74-99) mg/dL POC Glucose (mg/dL) 145 H 51 L 69 L (75-99) mg/dL Calcium (8.4-10.2) mg/dL Total Protein (6.3-8.2) g/dL Albumin (3.5-5.0) g/dL Procalcitonin (0.02-0.09) ng/mL Microbiology - Last 24 Hours (Table) 05/19/20 22:18 Blood Culture - Preliminary Blood No Growth after 48 hours 05/19/20 17:00 Urine Culture - Final Urine,Clean Catch 05/20/20 06:54 Blood Culture - Preliminary Blood No Growth after 24 hours Assessment and Plan Assessment: (1) Severe sepsis with acute organ dysfunction due to acute UTI with Klebsiella pneumoniae, bacteremia with pseudomonas aeruginosa Current Visit: Yes Status: Acute Code(s): A41.52 - SEPSIS DUE TO PSEUDOMONAS; R65.20 - SEVERE SEPSIS WITHOUT SEPTIC SHOCK SNOMED Code(s): 336849230358818 (2) Lambert-Eaton myasthenic syndrome Current Visit: Yes Status: Acute Code(s): G70.80 - LAMBERT-EATON SYNDROME, UNSPECIFIED SNOMED Code(s): 11426518 (3) Cavitary lesion of lung Current Visit: Yes Status: Acute Code(s): J98.4 - OTHER DISORDERS OF LUNG SNOMED Code(s): 103003507 (4) Chemotherapy induced neutropenia Current Visit: Yes Status: Acute Code(s): D70.1 - AGRANULOCYTOSIS SECONDARY TO CANCER CHEMOTHERAPY; T45.1X5A - ADVERSE EFFECT OF ANTINEOPLASTIC AND IMMUNOSUP DRUGS, INIT SNOMED Code(s): 902627769 (5) Pancytopenia Current Visit: Yes Status: Acute Code(s): D61.818 - OTHER PANCYTOPENIA SNOMED Code(s): 319395703 (6) Right leg DVT, status post IVC filter placement Current Visit: Yes Status: Acute Code(s): I82.401 - ACUTE EMBOLISM AND THOMBOS UNSP DEEP VEINS OF R LOW EXTREM SNOMED Code(s): 394811248 (7) Small cell lung cancer Current Visit: Yes Status: Acute Priority: High Code(s): C34.90 - MALIGNANT NEOPLASM OF UNSP PART OF UNSP BRONCHUS OR LUNG SNOMED Code(s): 749469529 (8) Pressure ulcer of sacral region, stage 2 Current Visit: No Status: Acute Code(s): L89.152 - PRESSURE ULCER OF SACRAL REGION, STAGE 2 SNOMED Code(s): 900464074 (9) Type 2 diabetes mellitus Current Visit: No Status: Acute Code(s): E11.9 - TYPE 2 DIABETES MELLITUS WITHOUT COMPLICATIONS SNOMED Code(s): 22432457 (10) hypokalemia (11) pulmonary edema secondary to chemotherapy (12) CAD (13) A. fib with RVR, new onset. (14) sacral decubitus ulcer, present on admission, reports worsening over the last 8 weeks. Refer to nursing measurements. Plan: Continue on current medication regime ,monitoring and symptomatic treatment. Potassium supplementation as per replacement protocol as ordered. Magnesium level ordered/pending. Wound debridement scheduled for tomorrow. Ma intain oral diuretics. Antiarrhythmics as per cardiology. If at bedside, updated. Discharge planning tentatively for later part of the week. The impression and plan of care has been dictated as directed. : I performed a history and examination of this patient, discussed the same with the dictator. I agree with the dictator's note ,documented as a scribe. Any additional findings or plans will be noted.
[2020-05-22 11:50] LABS: Glucose,Whole Blood 143 mg/dL (75-99)
--- NOTE | 2020-05-22 14:15 | P.PN ---
Subjective Progress Note Date: 05/22/20 CHIEF COMPLAINT: Sacral decubitus ulcer HISTORY OF PRESENT ILLNESS: Patient is lying comfortably. He has pillows propped under him to keep pressure off of the ulcer. Patient is afebrile. WBC 25 hemoglobin 8.3 PHYSICAL EXAM: VITAL SIGNS: Reviewed. GENERAL: Well-developed in no acute distress. HEENT: No sclera icterus. Extraocular movements grossly intact. Moist buccal mucosa. Head is atraumatic, normocephalic. ABDOMEN: Soft. Nondistended. Nontender. NEUROLOGIC: Alert and oriented. Cranial nerves II through XII grossly intact. SKIN: Sacral decubitus ulcer about 5 inches in length and 3 inches in width. Ulcer is covered with eschar tissue ASSESSMENT: 1. Sacral decubitus ulcer with eschar tissue 2. Small cell lung cancer 3. Lambert Eaton syndrome 4. Right lower extremity DVT status post IVC filter. PLAN: -Patient scheduled for debridement of sacral ulcer on 05/23/[address] Cheatham -Nothing by mouth after midnight Physician Trial Judge note has been reviewed by physician. Signing provider agrees with the documented findings, assessment, and plan of care. Objective - Vital Signs Vital signs: Vital Signs Temp 97.5 F L 05/22/20 08:50 Pulse 134 H 05/22/20 08:50 Resp 18 05/22/20 08:50 BP 141/60 05/22/20 08:50 Pulse Ox 97 05/22/20 08:50 Intake & Output 05/21/20 05/22/20 05/22/20 18:59 06:59 18:59 Intake Total 670 210 Output Total 750 0 350 Balance -80 -2049 -140 Weight 88.7 kg Intake: IV 180 0.9 80 Cefepime 2 gm In Sodium 100 Chloride 0.9% 100 ml @ 25 mls/hr IVPB Q12HR [facility] Rx #:[id number] Oral 490 210 Output: Urine 750 0 350 Other: Voiding Method Indwelling Catheter Indwelling Catheter Indwelling Catheter # Bowel Movements 1 - Labs CBC & Chem 7: 05/22/20 07:53 05/22/20 07:53 Labs: Abnormal Lab Results - Last 24 Hours (Table) 05/21/20 05/21/20 05/21/20 Range/Units 09:08 16:50 20:59 WBC (3.8-10.6) k/uL RBC (4.30-5.90) m/uL Hgb (13.0-17.5) gm/dL Hct (39.0-53.0) % RDW (11.5-15.5) % Neutrophils # (Manual) (1.3-7.7) k/uL Monocytes # (Manual) (0-1.0) k/uL Metamyelocytes # (Man) (0) k/uL Myelocytes # (Manual) (0) k/uL Potassium (3.5-5.1) mmol/L BUN (9-20) mg/dL Glucose (74-99) mg/dL POC Glucose (mg/dL) 158 H 145 H (75-99) mg/dL Calcium (8.4-10.2) mg/dL Magnesium (1.6-2.3) mg/dL Total Protein (6.3-8.2) g/dL Albumin (3.5-5.0) g/dL Procalcitonin 0.37 H (0.02-0.09) ng/mL 05/22/20 05/22/20 05/22/20 Range/Units 06:28 06:48 07:53 WBC 25.0 H (3.8-10.6) k/uL RBC 2.72 L (4.30-5.90) m/uL Hgb 8.3 L (13.0-17.5) gm/dL Hct 25.9 L (39.0-53.0) % RDW 16.3 H (11.5-15.5) % Neutrophils # (Manual) 20.50 H (1.3-7.7) k/uL Monocytes # (Manual) 2.00 H (0-1.0) k/uL Metamyelocytes # (Man) 0.75 H (0) k/uL Myelocytes # (Manual) 1.25 H (0) k/uL Potassium (3.5-5.1) mmol/L BUN (9-20) mg/dL Glucose (74-99) mg/dL POC Glucose (mg/dL) 51 L 69 L (75-99) mg/dL Calcium (8.4-10.2) mg/dL Magnesium (1.6-2.3) mg/dL Total Protein (6.3-8.2) g/dL Albumin (3.5-5.0) g/dL Procalcitonin (0.02-0.09) ng/mL 05/22/20 05/22/20 05/22/20 Range/Units 07:53 07:53 11:37 WBC (3.8-10.6) k/uL RBC (4.30-5.90) m/uL Hgb (13.0-17.5) gm/dL Hct (39.0-53.0) % RDW (11.5-15.5) % Neutrophils # (Manual) (1.3-7.7) k/uL Monocytes # (Manual) (0-1.0) k/uL Metamyelocytes # (Man) (0) k/uL Myelocytes # (Manual) (0) k/uL Potassium 2.8 L (3.5-5.1) mmol/L BUN 24 H (9-20) mg/dL Glucose 68 L (74-99) mg/dL POC Glucose (mg/dL) 143 H (75-99) mg/dL Calcium 7.0 L (8.4-10.2) mg/dL Magnesium 1.5 L (1.6-2.3) mg/dL Total Protein 4.2 L (6.3-8.2) g/dL Albumin 2.0 L (3.5-5.0) g/dL Procalcitonin (0.02-0.09) ng/mL Microbiology - Last 24 Hours (Table) 05/19/20 11:02 Stool Culture - Preliminary Stool 05/20/20 06:54 Blood Culture - Preliminary Blood No Growth after 48 hours 05/19/20 22:18 Blood Culture - Preliminary Blood No Growth after 48 hours 05/19/20 17:00 Urine Culture - Final Urine,Clean Catch
[2020-05-22] MEDS ORDERED: LIDOCAINE 1% (10MG/ML) FOR IV START INTRADERMA PRN (15:51)
[2020-05-22] MEDS ORDERED: ONDANSETRON 4 MG/2 ML VIAL IVP ONE (15:51)
[2020-05-22] MEDS ORDERED: DEXAMETHASONE SOD PHOSPHATE 4 MG/ML 1 ML VIAL IV ONE (15:51)
[2020-05-22 16:56] LABS: Glucose,Whole Blood 144 mg/dL (75-99)
[2020-05-22] MEDS: LACTATED RINGERS 1,000 ML IV SCH (17:39)
[2020-05-22 20:47] LABS: Glucose,Whole Blood 111 mg/dL (75-99)
[2020-05-22] MEDS: TAMSULOSIN 0.4 MG CAP.ER.24H PO SCH (21:34)
[2020-05-22] MEDS: INSULIN DETEMIR (LEVEMIR) 100 UNIT/ML SYR SQ SCH (21:36)
[2020-05-23 00:50] LABS: African American GFR (CKD) >90 (>60 ml/min/1.73 sqM); Anion Gap 6 mmol/L; Blood Urea Nitrogen 23 mg/dL (9-20); Carbon Dioxide 28 mmol/L (22-30); Chloride 102 mmol/L (98-107); Glucose 144 mg/dL (74-99); Magnesium 1.4 mg/dL (1.6-2.3); Non-African American GFR(CKD) 85 (>60 ml/min/1.73 sqM); Potassium 2.9 mmol/L (3.5-5.1); Sodium 136 mmol/L (137-145)
[2020-05-23] MEDS ORDERED: Potassium Replacement Protocol 1 EACH MISC MISCELLANE PRN ×2 (01:06→10:59)
[2020-05-23] MEDS ORDERED: Magnesium Replacement Protocol 1 EACH MISC MISCELLANE PRN (01:06)
[2020-05-23] MEDS: SODIUM CHLORIDE 0.9% 1,000 ML IV SCH (01:55)
[2020-05-23] MEDS: MAGNESIUM SULFATE-D5W PMX 1 GM in DEXTROSE/WATER 1 100ML.BAG IVPB SCH ×3 (01:57→04:43)
--- NOTE | 2020-05-23 02:19 | PN ---
PROGRESS NOTE DATE OF SERVICE: 05/22/2020 REASON FOR FOLLOWUP: Leukocytosis, Pseudomonas bacteremia and UTI. INTERVAL HISTORY: The patient is currently afebrile. The patient is breathing comfortably. The patient denies having any chest pain or shortness of breath. Occasional cough. No abdominal pain. No further bleeding per rectum and his hematuria has improved. PHYSICAL EXAMINATION: Blood pressure is 100/64 with a pulse of 95, temperature 98.6. He is 96% on room air. General description is an elderly male lying in bed in no distress. RESPIRATORY SYSTEM: Unlabored breathing, decreased breath sounds at the bases. No wheeze. Heart: S1, S2. Regular rate and rhythm. ABDOMEN: Soft, no tenderness. LABS: Hemoglobin is 8.3, white count 25,000, BUN of 24, creatinine 0.98. Blood culture repeat has been negative. DIAGNOSTIC IMPRESSION AND PLAN: Patient with elevated white count which is multifactorial in this patient who did have a component of Pseudomonas bacteremia and urinary tract infection. The patient is currently covered with cefepime and Diflucan. White count showing a downward trend to continue and monitor clinical course closely. MMODL / IJN: [id number] /
[2020-05-23] MEDS: POTASSIUM CHLORIDE ER 20 MEQ TAB.ER PO SCH ×5 (06:01→18:09)
[2020-05-23 06:34] LABS: Glucose,Whole Blood 146 mg/dL (75-99)
[2020-05-23] MEDS: INSULIN ASPART (NovoLOG) 100 UNIT/ML VIAL SQ SCH ×4 (06:54→21:27)
[2020-05-23] MEDS: NYSTATIN 100,000 UNIT/ML SUSP 500,000 UNIT/5 ML CUP PO SCH ×4 (08:41→21:25)
[2020-05-23] MEDS: METOPROLOL TARTRATE 50 MG TAB PO SCH ×2 (08:42→20:15)
[2020-05-23] MEDS: FLUCONAZOLE 100 MG TAB PO SCH (08:42)
[2020-05-23] MEDS: DILTIAZEM ORAL 60 MG TAB PO SCH ×3 (08:42→21:23)
[2020-05-23] MEDS: CEFEPIME 2 GM in SODIUM CHLORIDE 0.9% 100 ML IVPB SCH ×2 (08:43→21:28)
[2020-05-23] MEDS: FUROSEMIDE 20 MG TAB PO SCH ×2 (08:43→18:09)
[2020-05-23] MEDS: PANTOPRAZOLE 40 MG/10 ML VIAL IVP SCH ×2 (08:44→21:25)
[2020-05-23] MEDS: MAG HYDROX/AL HYDROX/SIMETH 30 ML, LIDOCAINE VISCOUS 30 ML, diphenhydrAMINE ELIXIR 75 M... PO SCH ×12 (08:58→21:25)
[2020-05-23 10:13] LABS: African American GFR (CKD) >90 (>60 ml/min/1.73 sqM); Anion Gap 5 mmol/L; Blood Urea Nitrogen 24 mg/dL (9-20); Calcium 7.1 mg/dL (8.4-10.2); Carbon Dioxide 33 mmol/L (22-30); Chloride 100 mmol/L (98-107); Glucose 83 mg/dL (74-99); Magnesium 2.1 mg/dL (1.6-2.3); Non-African American GFR(CKD) 82 (>60 ml/min/1.73 sqM); Potassium 2.8 mmol/L (3.5-5.1); Sodium 138 mmol/L (137-145)
[2020-05-23] MEDS ORDERED: POTASSIUM CHLORIDE 20 MEQ in WATER FOR INJECTION 1 100ML.BAG IVPB ONE (10:30)
--- NOTE | 2020-05-23 10:57 | P.PN ---
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 He is approx 7 days s/p his first cycle of carboplatin and etoposide and feels his symptoms have worsened since that time. He has continued to experience severe weakness over the past few months. On presentation he was tachycardic and febrile, WBC 0.8k, Hgb 10.5, plt 36. CTA performed showed no PE and interval enlargement of his hilar mass to 6 cm. He was started on vancomycin and IV fluids, this morning pt complains of continued wet cough and shortness of breath. Complains of just generalized weakness, weak cough,shortness of breath. Maintaining O2 sats in the 90s on 5 L nasal cannula. Afebrile. 05/18/2020 Developed oozing around the skin tear on left forearm, Tranexamic acid applied, improving. Eliquis discontinued, patient has IVC filter. Hemoglobin dropped to 8.1. WBC trending down, 55.1,oncology following.Uncontrolled A. fib, on Cardizem. Telemetry reporting heart rates up into the 150s, currently in the 1 teens. Renal function improving, hypokalemia, potassium 3. 05/21/2020 transfused over the weekend, hemoglobin currently 8.7, platelets 264. No further bleeding, no bloody stools reported. Left forearm site weeping less, hematuria significantly improved. Maintained on cefepime,WBC trending down, 33.1. Afebrile. Repeat blood cultures reporting no growth at 24 hours, repeat urine cultures reporting no growth after 18 hours. Diuresing well on oral Lasix with 24-hour I&O reflecting a negative fluid balance .BUN and creatinine trending down to 24/0.8. Shortness of breath improving. Maintaining O2 sats in the 90s on room air. Telemetry reporting atrial fibrillation with uncontrolled heart rate, on oral Cardizem. 05/22/2020 Evaluated by surgery yesterday with surgical debridement scheduled for tomorrow. Continues on cefepime and Diflucan. Afebrile, WBC continues trending down to 25. Hemoglobin and platelets down to 8.3 and 224.No further oozing from left forearm site this morning. Diuresing well on oral Lasix, creatinine 0.98. Potassium 2.8, magnesium level ordered. Uncontrolled A. fib with borderline hypotension this morning .Denies shortness of breath this morning, maintaining O2 sats in the mid to high 90s on room air. 05/23/20 This morning, denies pain, denies chest pain, palpitations or shortness of breath. A. fib controlled. Denies shortness of breath with lying flat. No further oozing from left forearm site. No further hematuria. CBC pending. Potassium 2.9, magnesium 1.4, supplements ordered. Objective - Vital Signs Vital signs: Vital Signs Temp 97.9 F 05/23/20 04:00 Pulse 90 05/23/20 04:00 Resp 18 05/23/20 04:00 BP 113/69 05/23/20 04:00 Pulse Ox 95 05/23/20 04:00 Intake & Output 05/22/20 05/23/20 05/23/20 18:59 06:59 18:59 Intake Total 420 Output Total 1850 1550 Balance -1430 -1550 Weight 88.7 kg 86 kg Intake: Oral 420 Output: Urine 1850 1550 Other: Voiding Method Indwelling Catheter Indwelling Catheter - Exam General: Sitting up in bed, alert and oriented 3, NAD. Vitals reviewed Eyes: PERRL, EOMI, conjunctiva normal HENT: normocephalic, mucus membranes dry Neck: supple, no JVD Lungs: Increased respiratory effort, no wheezes. Bibasilar crackles CV: Regular rate and rhythm, no murmur. Peripheral pulses 2+. Improving bilateral LE edema. Abdomen: soft, nondistended, no organomegaly, positive bowel sounds. Skin: warm and dry, sacral decubitus ulcer dressing clean dry and intact Neuro: Cranial nerves II through XII grossly intact, no focal deficits. Microbiology 05/20/20 06:54 Blood Blood Culture - Preliminary No Growth after 72 hours 05/19/20 22:18 Blood Blood Culture - Preliminary No Growth after 72 hours 05/19/20 11:02 Stool Stool Culture - Preliminary 05/19/20 17:00 Urine,Clean Catch Urine Culture - Final 05/11/20 12:02 Blood Blood Culture - Final No Growth after 144 hours 05/10/20 13:51 Urine,Voided Urine Culture - Final Klebsiella pneumoniae 05/10/20 16:20 Blood Blood Culture Gram Stain - Final 05/10/20 16:20 Blood Blood Culture - Final Pseudomonas aeruginosa 05/10/20 16:20 Blood Blood Culture - Final - Labs CBC & Chem 7: 05/22/20 07:53 05/23/20 08:44 Labs: Abnormal Lab Results - Last 24 Hours (Table) 05/22/20 05/22/20 05/22/20 Range/Units 07:53 07:53 11:37 WBC 25.0 H (3.8-10.6) k/uL RBC 2.72 L (4.30-5.90) m/uL Hgb 8.3 L (13.0-17.5) gm/dL Hct 25.9 L (39.0-53.0) % RDW 16.3 H (11.5-15.5) % Neutrophils # (Manual) 20.50 H (1.3-7.7) k/uL Monocytes # (Manual) 2.00 H (0-1.0) k/uL Metamyelocytes # (Man) 0.75 H (0) k/uL Myelocytes # (Manual) 1.25 H (0) k/uL Sodium (137-145) mmol/L Potassium (3.5-5.1) mmol/L BUN (9-20) mg/dL Glucose (74-99) mg/dL POC Glucose (mg/dL) 143 H (75-99) mg/dL Calcium (8.4-10.2) mg/dL Magnesium 1.5 L (1.6-2.3) mg/dL 05/22/20 05/22/20 05/23/20 Range/Units 16:45 20:46 00:03 WBC (3.8-10.6) k/uL RBC (4.30-5.90) m/uL Hgb (13.0-17.5) gm/dL Hct (39.0-53.0) % RDW (11.5-15.5) % Neutrophils # (Manual) (1.3-7.7) k/uL Monocytes # (Manual) (0-1.0) k/uL Metamyelocytes # (Man) (0) k/uL Myelocytes # (Manual) (0) k/uL Sodium 136 L (137-145) mmol/L Potassium 2.9 L (3.5-5.1) mmol/L BUN 23 H (9-20) mg/dL Glucose 144 H (74-99) mg/dL POC Glucose (mg/dL) 144 H 111 H (75-99) mg/dL Calcium 7.0 L (8.4-10.2) mg/dL Magnesium 1.4 L (1.6-2.3) mg/dL 05/23/20 Range/Units 06:32 WBC (3.8-10.6) k/uL RBC (4.30-5.90) m/uL Hgb (13.0-17.5) gm/dL Hct (39.0-53.0) % RDW (11.5-15.5) % Neutrophils # (Manual) (1.3-7.7) k/uL Monocytes # (Manual) (0-1.0) k/uL Metamyelocytes # (Man) (0) k/uL Myelocytes # (Manual) (0) k/uL Sodium (137-145) mmol/L Potassium (3.5-5.1) mmol/L BUN (9-20) mg/dL Glucose (74-99) mg/dL POC Glucose (mg/dL) 146 H (75-99) mg/dL Calcium (8.4-10.2) mg/dL Magnesium (1.6-2.3) mg/dL Microbiology - Last 24 Hours (Table) 05/20/20 06:54 Blood Culture - Preliminary Blood No Growth after 72 hours 05/19/20 22:18 Blood Culture - Preliminary Blood No Growth after 72 hours 05/19/20 11:02 Stool Culture - Preliminary Stool Assessment and Plan Assessment: (1) Severe sepsis with acute organ dysfunction due to acute UTI with Klebsiella pneumoniae, bacteremia with pseudomonas aeruginosa Current Visit: Yes Status: Acute Code(s): A41.52 - SEPSIS DUE TO PSEUDOMONAS; R65.20 - SEVERE SEPSIS WITHOUT SEPTIC SHOCK SNOMED Code(s): 762064158476062 (2) Lambert-Eaton myasthenic syndrome Current Visit: Yes Status: Acute Code(s): G70.80 - LAMBERT-EATON SYNDROME, UNSPECIFIED SNOMED Code(s): 78207042 (3) Cavitary lesion of lung Current Visit: Yes Status: Acute Code(s): J98.4 - OTHER DISORDERS OF LUNG SNOMED Code(s): 982796492 (4) Chemotherapy induced neutropenia Current Visit: Yes Status: Acute Code(s): D70.1 - AGRANULOCYTOSIS SECONDARY TO CANCER CHEMOTHERAPY; T45.1X5A - ADVERSE EFFECT OF ANTINEOPLASTIC AND IMMUNOSUP DRUGS, INIT SNOMED Code(s): 986896484 (5) Pancytopenia Current Visit: Yes Status: Acute Code(s): D61.818 - OTHER PANCYTOPENIA SNOMED Code(s): 476461555 (6) Right leg DVT, status post IVC filter placement Current Visit: Yes Status: Acute Code(s): I82.401 - ACUTE EMBOLISM AND THOMBOS UNSP DEEP VEINS OF R LOW EXTREM SNOMED Code(s): 776956675 (7) Small cell lung cancer Current Visit: Yes Status: Acute Priority: High Code(s): C34.90 - MALIGNANT NEOPLASM OF UNSP PART OF UNSP BRONCHUS OR LUNG SNOMED Code(s): 708227095 (8) Pressure ulcer of sacral region, stage 2 Current Visit: No Status: Acute Code(s): L89.152 - PRESSURE ULCER OF SACRAL REGION, STAGE 2 SNOMED Code(s): 045117156 (9) Type 2 diabetes mellitus Current Visit: No Status: Acute Code(s): E11.9 - TYPE 2 DIABETES MELLITUS WITHOUT COMPLICATIONS SNOMED Code(s): 82022631 (10) hypokalemia (11) pulmonary edema secondary to chemotherapy (12) CAD (13) A. fib with RVR, new onset. (14) sacral decubitus ulcer, present on admission, reports worsening over the last 8 weeks. Refer to nursing measurements. (15) hypomagnesemia Plan: Continue on current medication regime ,monitoring and symptomatic treatment. Potassium and magnesium supplementation now as ordered. Follow-up electrolyte levels post supplementation. Wound debridement pending for today. Oral diuretics with continued monitoring of renal function. The impression and plan of care has been dictated as directed. : I performed a history and examination of this patient, discussed the same with the dictator. I agree with the dictator's note ,documented as a scribe. Any additional findings or plans will be noted.
[2020-05-23] MEDS ORDERED: POTASSIUM CHLORIDE ER 20 MEQ TAB.ER PO SCH (11:00)
[2020-05-23 11:21] LABS: HCT 24.6 % (39.0-53.0); HGB 8.3 gm/dL (13.0-17.5); MCH 31.6 pg (25.0-35.0); MCHC 33.9 g/dL (31.0-37.0); MCV 93.2 fL (80.0-100.0); Mean Platelet Volume 7.8; Platelet Count 267 k/uL (150-450); RBC 2.64 m/uL (4.30-5.90); RDW 15.7 % (11.5-15.5); WBC 23.8 k/uL (3.8-10.6)
[2020-05-23 11:32] LABS: Magnesium 2.2 mg/dL (1.6-2.3); Potassium 2.9 mmol/L (3.5-5.1)
[2020-05-23 11:41] LABS: Glucose,Whole Blood 88 mg/dL (75-99)
[2020-05-23 12:23] LABS: Band Neutrophils % 2 %; Eosinophils # (M) 0.24 k/uL (0-0.7); Metamyelocytes # (M) 0.24 k/uL (0); Metamyelocytes % 1 %; Monocytes # (M) 0.48 k/uL (0-1.0); Myelocytes # (M) 0.24 k/uL (0); Myelocytes % 1 %; Neutrophils % (M) 87 %; Nucleated Red Blood Cells 0 /100 WBC (0-0); Total Cells Counted 200
[2020-05-23 12:24] LABS: Poikilocytosis (M) Present; Polychromasia Present
[2020-05-23] MEDS ORDERED: IV FLUID CONTINUATION 850 ML IV ONE (12:50)
[2020-05-23] MEDS ORDERED: ONDANSETRON 4 MG/2 ML VIAL ONE (13:08)
[2020-05-23] MEDS ORDERED: PROPOFOL 10 MG/ML 20 ML VIAL IV ONE (15:51)
[2020-05-23] MEDS ORDERED: PHENYLEPHRINE-0.9% NACL SYG 1 MG/10 ML SYRINGE ONE (15:51)
[2020-05-23] MEDS ORDERED: WATER FOR INJECTION, STERILE 10 ML VIAL IV ONE (15:51)
[2020-05-23] MEDS ORDERED: LIDOCAINE 1% INJ 10MG/ML (20 ML MDV) ONE (15:51)
[2020-05-23] MEDS ORDERED: ePHEDrine SULFATE/0.9% NACL/PF 50 MG/5 ML SYRINGE IV ONE (15:51)
[2020-05-23] MEDS ORDERED: fentaNYL (PF) 50 MCG/ML 2 ML AMP ONE (15:51)
[2020-05-23] MEDS ORDERED: IV FLUID CONTINUATION 1,000 ML IV ONE (15:58)
--- NOTE | 2020-05-23 16:49 | P.OP ---
Date of Procedure: 05/23/20 Preoperative Diagnosis: Decubitus ulcer Postoperative Diagnosis: Decubitus ulcer Procedure(s) Performed: Debridement of decubitus ulcer Anesthesia: ROSSY Surgeon: Mike Cheatham Estimated Blood Loss (ml): 30 Pathology: other (Decubitus ulcer) Condition: stable Disposition: PACU Description of Procedure: The patient's placed on the operative table in the supine position. He received general anesthesia. He was then placed in the lateral position. Patient's tachycardia was ulcer was then prepped and draped usual sterile fashion. The ulcer was then sharply debrided with a 11 blade and electrocautery. The Bovie hemostasis. The specimen measured 8 x 10 x 3 cm. Hemostasis was achieved. The wound was then packed with dry Kerlix.
[2020-05-23] MEDS: LACTATED RINGERS 1,000 ML IV SCH (18:04)
[2020-05-23 18:13] LABS: Glucose,Whole Blood 85 mg/dL (75-99)
[2020-05-23 19:21] LABS: Potassium 4.3 mmol/L (3.5-5.1)
[2020-05-23 20:11] LABS: Glucose,Whole Blood 145 mg/dL (75-99)
[2020-05-23] MEDS: HYDROcodone/APAP 5-325MG 1 EACH TAB PO PRN (21:23)
[2020-05-23] MEDS: TAMSULOSIN 0.4 MG CAP.ER.24H PO SCH (21:25)
[2020-05-23] MEDS: INSULIN DETEMIR (LEVEMIR) 100 UNIT/ML SYR SQ SCH (21:28)
--- NOTE | 2020-05-23 22:27 | PN ---
PROGRESS NOTE DATE OF SERVICE: 05/23/2020 REASON FOR FOLLOWUP: 1. Leukocytosis. 2. Sacral pressure ulcer. INTERVAL HISTORY: The patient is currently afebrile. The patient is breathing comfortably. He is status post debridement of his sacral wound. The patient tolerated the procedure. Pain is currently controlled. No chest pain. Occasional cough. No diarrhea. PHYSICAL EXAMINATION: Blood pressure is 97/51 with pulse of 120, temperature 98.3. He is 98% on 2 L nasal cannula. General description is an elderly male lying in bed in no distress. RESPIRATORY SYSTEM: Unlabored breathing with decreased breath sounds at the base. No wheeze. HEART: S1, S2. Regular rate and rhythm. ABDOMEN: Soft. No tenderness. EXTREMITIES: No edema of the feet. LABS: Hemoglobin 8.8, white count 23.8. DIAGNOSTIC IMPRESSION AND PLAN: Patient with elevated white count which is multifactorial in this patient who initially did have a pseudomonas bacteremia and klebsiella UTI and subsequently did have hematuria and bleeding per rectum, possibly reactive. White count is showing a downward trend, covered with cefepime and diflucan; to continue and monitor clinical course closely. MMODL / IJN: [id number] /
[2020-05-24] MEDS: SODIUM CHLORIDE 0.9% 1,000 ML IV SCH (05:33)
[2020-05-24 06:12] LABS: Glucose,Whole Blood 201 mg/dL (75-99)
[2020-05-24] MEDS: INSULIN ASPART (NovoLOG) 100 UNIT/ML VIAL SQ SCH ×4 (06:45→21:50)
[2020-05-24 08:19] LABS: Basophils # (A) 0.2 k/uL (0-0.2); Basophils % (A) 1 %; Eosinophils % (A) 0 %; HCT 26.4 % (39.0-53.0); HGB 8.8 gm/dL (13.0-17.5); Lymphocytes # (A) 0.6 k/uL (1.0-4.8); Lymphocytes % (A) 3 %; MCH 31.9 pg (25.0-35.0); MCHC 33.5 g/dL (31.0-37.0); MCV 95.2 fL (80.0-100.0); Mean Platelet Volume 7.8; Monocytes # (A) 0.9 k/uL (0-1.0); Monocytes % (A) 4 %; Neutrophils # (A) 19.8 k/uL (1.3-7.7); Neutrophils % (A) 92 %; Platelet Count 274 k/uL (150-450); RBC 2.77 m/uL (4.30-5.90); RDW 15.7 % (11.5-15.5); WBC 21.6 k/uL (3.8-10.6)
[2020-05-24 08:37] LABS: African American GFR (CKD) >90 (>60 ml/min/1.73 sqM); Anion Gap 6 mmol/L; Blood Urea Nitrogen 28 mg/dL (9-20); Calcium 7.1 mg/dL (8.4-10.2); Carbon Dioxide 29 mmol/L (22-30); Chloride 105 mmol/L (98-107); Glucose 158 mg/dL (74-99); Magnesium 1.9 mg/dL (1.6-2.3); Non-African American GFR(CKD) >90 (>60 ml/min/1.73 sqM); Potassium 3.3 mmol/L (3.5-5.1); Sodium 140 mmol/L (137-145)
[2020-05-24] MEDS: NYSTATIN 100,000 UNIT/ML SUSP 500,000 UNIT/5 ML CUP PO SCH ×4 (09:49→22:08)
[2020-05-24] MEDS: CEFEPIME 2 GM in SODIUM CHLORIDE 0.9% 100 ML IVPB SCH ×2 (09:49→22:06)
[2020-05-24] MEDS: METOPROLOL TARTRATE 50 MG TAB PO SCH ×2 (09:49→22:07)
[2020-05-24] MEDS: PANTOPRAZOLE 40 MG/10 ML VIAL IVP SCH (09:50)
[2020-05-24] MEDS: DILTIAZEM ORAL 60 MG TAB PO SCH ×3 (09:50→22:07)
[2020-05-24] MEDS: FLUCONAZOLE 100 MG TAB PO SCH (09:50)
[2020-05-24] MEDS: FUROSEMIDE 20 MG TAB PO SCH ×2 (09:50→16:38)
[2020-05-24] MEDS: MAG HYDROX/AL HYDROX/SIMETH 30 ML, LIDOCAINE VISCOUS 30 ML, diphenhydrAMINE ELIXIR 75 M... PO SCH ×12 (09:50→22:05)
--- NOTE | 2020-05-24 11:02 | P.PN ---
Subjective Progress Note Date: 05/24/20 CHIEF COMPLAINT: Sacral decubitus ulcer HISTORY OF PRESENT ILLNESS: Patient is status post debridement of decubitus ulcer. Patient denies any pain at this time. Patient is lying comfortably. He has pillows propped under him to keep pressure off of the ulcer. Patient is afebrile. WBC 25 hemoglobin 8.3 PHYSICAL EXAM: VITAL SIGNS: Reviewed. GENERAL: Well-developed in no acute distress. HEENT: No sclera icterus. Extraocular movements grossly intact. Moist buccal mucosa. Head is atraumatic, normocephalic. ABDOMEN: Soft. Nondistended. Nontender. NEUROLOGIC: Alert and oriented. Cranial nerves II through XII grossly intact. SKIN: Sacral decubitus ulcer about 5 inches in length and 3 inches in width. ASSESSMENT: 1. Sacral decubitus ulcer with eschar tissue status post debridement 2. Small cell lung cancer 3. Lambert Eaton syndrome 4. Right lower extremity DVT status post IVC filter. PLAN: -Consult placed for wound care -Continue supportive treatment -Continue the patient keep pressure off of the sacral area Physician Mixer Driver note has been reviewed by physician. Signing provider agrees with the documented findings, assessment, and plan of care. Objective - Vital Signs Vital signs: Vital Signs Temp 97.5 F L 05/24/20 04:00 Pulse 102 H 05/24/20 04:00 Resp 18 05/24/20 04:00 BP 98/64 05/24/20 05:20 Pulse Ox 99 05/24/20 04:00 Intake & Output 05/23/20 05/24/20 05/24/20 18:59 06:59 18:59 Intake Total 870 420 125 Output Total 430 801 100 Balance 440 -381 25 Weight 89.4 kg Intake: IV 750 420 0.9 320 Cefepime 2 gm In Sodium 100 Chloride 0.9% 100 ml @ 25 mls/hr IVPB Q12HR [facility] Rx #:[id number] Oral 120 125 Output: Urine 400 800 100 Stool 1 Estimated Blood Loss 30 Other: Voiding Method Indwelling Catheter Indwelling Catheter # Voids 0 - Labs CBC & Chem 7: 05/24/20 07:41 05/24/20 07:41 Labs: Abnormal Lab Results - Last 24 Hours (Table) 05/19/20 05/23/20 05/23/20 Range/Units 11:09 10:48 10:48 WBC 23.8 H (3.8-10.6) k/uL RBC 2.64 L (4.30-5.90) m/uL Hgb 8.3 L (13.0-17.5) gm/dL Hct 24.6 L (39.0-53.0) % RDW 15.7 H (11.5-15.5) % Neutrophils # (1.3-7.7) k/uL Neutrophils # (Manual) 21.10 H (1.3-7.7) k/uL Lymphocytes # (1.0-4.8) k/uL Metamyelocytes # (Man) 0.24 H (0) k/uL Myelocytes # (Manual) 0.24 H (0) k/uL Fibrinogen Antigen 584 H (<350) mg/dL Potassium 2.9 L (3.5-5.1) mmol/L BUN (9-20) mg/dL Glucose (74-99) mg/dL POC Glucose (mg/dL) (75-99) mg/dL Calcium (8.4-10.2) mg/dL 05/23/20 05/24/20 05/24/20 Range/Units 20:08 06:11 07:41 WBC (3.8-10.6) k/uL RBC (4.30-5.90) m/uL Hgb (13.0-17.5) gm/dL Hct (39.0-53.0) % RDW (11.5-15.5) % Neutrophils # (1.3-7.7) k/uL Neutrophils # (Manual) (1.3-7.7) k/uL Lymphocytes # (1.0-4.8) k/uL Metamyelocytes # (Man) (0) k/uL Myelocytes # (Manual) (0) k/uL Fibrinogen Antigen (<350) mg/dL Potassium 3.3 L (3.5-5.1) mmol/L BUN 28 H (9-20) mg/dL Glucose 158 H (74-99) mg/dL POC Glucose (mg/dL) 145 H 201 H (75-99) mg/dL Calcium 7.1 L (8.4-10.2) mg/dL 05/24/20 Range/Units 07:41 WBC 21.6 H (3.8-10.6) k/uL RBC 2.77 L (4.30-5.90) m/uL Hgb 8.8 L (13.0-17.5) gm/dL Hct 26.4 L (39.0-53.0) % RDW 15.7 H (11.5-15.5) % Neutrophils # 19.8 H (1.3-7.7) k/uL Neutrophils # (Manual) (1.3-7.7) k/uL Lymphocytes # 0.6 L (1.0-4.8) k/uL Metamyelocytes # (Man) (0) k/uL Myelocytes # (Manual) (0) k/uL Fibrinogen Antigen (<350) mg/dL Potassium (3.5-5.1) mmol/L BUN (9-20) mg/dL Glucose (74-99) mg/dL POC Glucose (mg/dL) (75-99) mg/dL Calcium (8.4-10.2) mg/dL Microbiology - Last 24 Hours (Table) 05/20/20 06:54 Blood Culture - Preliminary Blood No Growth after 96 hours 05/19/20 11:02 Stool Culture - Final Stool 05/19/20 22:18 Blood Culture - Preliminary Blood No Growth after 96 hours
--- NOTE | 2020-05-24 11:59 | P.PN ---
Subjective Progress Note Date: 05/24/20 this is a 64-year-old pleasant gentleman with a history of metastatic lung cancer left-sided weakness secondary to cancer diabetes mellitus cholesterol hypertension BPH. Patient has developed a stage II pressure ulcer to the right and left gluteus. He has been seen home care who has been providing dressings for the site. Patient was seen approximately 2 weeks ago in hospital were honey alginate was ordered. Patient was tolerating well without any difficulties. 05/24: shellie is agreeing re-seen after a surgical debridement of the ulceration to the sacrum. This is a stage III pressure ulcer without muscle necrosis. patient is found sitting up in bed. Speaking with and patient home care is in place. He does have a Roho cushion for his wheelchair. Which she utilizes at all times. Also a overlay mattress at home. Review Of Systems: Constitutional: No fever, no chills, no night sweats. No weight change. No weakness, fatigue or lethargy. No daytime sleepiness. Integumentary:reports wounds, no lesions. No rash or pruritus. No unusual bruising. No change in hair or nails Objective - Vital Signs Vital signs: Vital Signs Temp 98.4 F 05/24/20 09:45 Pulse 95 05/24/20 09:45 Resp 18 05/24/20 09:45 BP 89/61 05/24/20 09:45 Pulse Ox 98 05/24/20 09:45 Intake & Output 05/23/20 05/24/20 05/24/20 18:59 06:59 18:59 Intake Total 870 420 135 Output Total 430 801 100 Balance 440 -381 35 Weight 89.4 kg Intake: IV 750 420 10 0.9 320 Cefepime 2 gm In Sodium 100 Chloride 0.9% 100 ml @ 25 mls/hr IVPB Q12HR [facility] Rx #:[id number] Invasive Line 5 10 Oral 120 125 Output: Urine 400 800 100 Stool 1 Estimated Blood Loss 30 Other: Voiding Method Indwelling Catheter Indwelling Catheter Indwelling Catheter # Voids 0 - Exam Physical exam: General Appearance: Alert, cooperative, no distress, appears stated age. Skin: left gluteus ulceration full-thickness pressure ulcer stage III with muscle involvement without necrosis, minimal granulation seen throughout the wound bed. moderate adherent slough. wound measures approximately 8 x 10 x 1.5 cm.Wound edges appears to be unattached to the wound base. no tunneling or undermining noted. Periwound shows erythema all other Skin color, texture, tugor decreased, no rashes or lesions. Neurologic: Alert oriented x3 - Labs CBC & Chem 7: 05/24/20 07:41 05/24/20 07:41 Labs: Abnormal Lab Results - Last 24 Hours (Table) 05/19/20 05/23/20 05/23/20 Range/Units 11:09 10:48 20:08 WBC 23.8 H (3.8-10.6) k/uL RBC 2.64 L (4.30-5.90) m/uL Hgb 8.3 L (13.0-17.5) gm/dL Hct 24.6 L (39.0-53.0) % RDW 15.7 H (11.5-15.5) % Neutrophils # (1.3-7.7) k/uL Neutrophils # (Manual) 21.10 H (1.3-7.7) k/uL Lymphocytes # (1.0-4.8) k/uL Metamyelocytes # (Man) 0.24 H (0) k/uL Myelocytes # (Manual) 0.24 H (0) k/uL Fibrinogen Antigen 584 H (<350) mg/dL Potassium (3.5-5.1) mmol/L BUN (9-20) mg/dL Glucose (74-99) mg/dL POC Glucose (mg/dL) 145 H (75-99) mg/dL Calcium (8.4-10.2) mg/dL 05/24/20 05/24/20 05/24/20 Range/Units 06:11 07:41 07:41 WBC 21.6 H (3.8-10.6) k/uL RBC 2.77 L (4.30-5.90) m/uL Hgb 8.8 L (13.0-17.5) gm/dL Hct 26.4 L (39.0-53.0) % RDW 15.7 H (11.5-15.5) % Neutrophils # 19.8 H (1.3-7.7) k/uL Neutrophils # (Manual) (1.3-7.7) k/uL Lymphocytes # 0.6 L (1.0-4.8) k/uL Metamyelocytes # (Man) (0) k/uL Myelocytes # (Manual) (0) k/uL Fibrinogen Antigen (<350) mg/dL Potassium 3.3 L (3.5-5.1) mmol/L BUN 28 H (9-20) mg/dL Glucose 158 H (74-99) mg/dL POC Glucose (mg/dL) 201 H (75-99) mg/dL Calcium 7.1 L (8.4-10.2) mg/dL Microbiology - Last 24 Hours (Table) 05/20/20 06:54 Blood Culture - Preliminary Blood No Growth after 96 hours 05/19/20 11:02 Stool Culture - Final Stool 05/19/20 22:18 Blood Culture - Preliminary Blood No Growth after 96 hours Assessment and Plan (1) Type 2 diabetes mellitus with other skin ulcer Current Visit: Yes Status: Acute Code(s): E11.622 - TYPE 2 DIABETES MELLITUS WITH OTHER SKIN ULCER; L98.499 - NON-PRESSURE CHRONIC ULCER OF SKIN OF SITES W UNSP SEVERITY SNOMED Code(s): 612796229 (2) Stage III pressure ulcer of sacral region Current Visit: Yes Status: Acute Code(s): L89.153 - PRESSURE ULCER OF SACRAL REGION, STAGE 3 SNOMED Code(s): 425809215 Plan: apply negative pressure wound VAC at 125 mmHg continuous suction. With black f oam. change Thursday while patient is in hospital. Continue at home with homecare to change Thursday. when patient is prepared for discharge utilize the following order:apply honey alginate, saline moistened gauze, foam border gauze. Consider overlay mattress for at home. Patient was instructed to utilize a Roho cushion. patient will need to be scheduled in the wound care center in one week.. Patient and are agreeable to the plan. Thank you for the consultation any questions please contact the wound care center DNP note has been reviewed and discussed with Dr. Shaffer and the impression and plan of care has been directed as dictated.
[2020-05-24 12:19] LABS: Glucose,Whole Blood 184 mg/dL (75-99)
[2020-05-24] MEDS: LACTATED RINGERS 1,000 ML IV SCH (16:33)
[2020-05-24 16:46] LABS: Glucose,Whole Blood 121 mg/dL (75-99)
--- NOTE | 2020-05-24 16:51 | P.PN ---
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 He is approx 7 days s/p his first cycle of carboplatin and etoposide and feels his symptoms have worsened since that time. He has continued to experience severe weakness over the past few months. On presentation he was tachycardic and febrile, WBC 0.8k, Hgb 10.5, plt 36. CTA performed showed no PE and interval enlargement of his hilar mass to 6 cm. He was started on vancomycin and IV fluids, this morning pt complains of continued wet cough and shortness of breath. Complains of just generalized weakness, weak cough,shortness of breath. Maintaining O2 sats in the 90s on 5 L nasal cannula. Afebrile. 05/18/2020 Developed oozing around the skin tear on left forearm, Tranexamic acid applied, improving. Eliquis discontinued, patient has IVC filter. Hemoglobin dropped to 8.1. WBC trending down, 55.1,oncology following.Uncontrolled A. fib, on Cardizem. Telemetry reporting heart rates up into the 150s, currently in the 1 teens. Renal function improving, hypokalemia, potassium 3. 05/21/2020 transfused over the weekend, hemoglobin currently 8.7, platelets 264. No further bleeding, no bloody stools reported. Left forearm site weeping less, hematuria significantly improved. Maintained on cefepime,WBC trending down, 33.1. Afebrile. Repeat blood cultures reporting no growth at 24 hours, repeat urine cultures reporting no growth after 18 hours. Diuresing well on oral Lasix with 24-hour I&O reflecting a negative fluid balance .BUN and creatinine trending down to 24/0.8. Shortness of breath improving. Maintaining O2 sats in the 90s on room air. Telemetry reporting atrial fibrillation with uncontrolled heart rate, on oral Cardizem. 05/22/2020 Evaluated by surgery yesterday with surgical debridement scheduled for tomorrow. Continues on cefepime and Diflucan. Afebrile, WBC continues trending down to 25. Hemoglobin and platelets down to 8.3 and 224.No further oozing from left forearm site this morning. Diuresing well on oral Lasix, creatinine 0.98. Potassium 2.8, magnesium level ordered. Uncontrolled A. fib with borderline hypotension this morning .Denies shortness of breath this morning, maintaining O2 sats in the mid to high 90s on room air. 05/23/20 This morning, denies pain, denies chest pain, palpitations or shortness of breath. A. fib controlled. Denies shortness of breath with lying flat. No further oozing from left forearm site. No further hematuria. CBC pending. Potassium 2.9, magnesium 1.4, supplements ordered. 05/24/2020 Status post debridement, tolerated procedure well. Denies pain. Hemoglobin 8.8. Afebrile, WBC trending down 21.6. Potassium 3.3, magnesium 1.9. Borderline hypotension, antiarrhythmics as per cardiology. Objective - Vital Signs Vital signs: Vital Signs Temp 97.5 F L 05/24/20 04:00 Pulse 102 H 05/24/20 04:00 Resp 18 05/24/20 04:00 BP 98/64 05/24/20 05:20 Pulse Ox 99 05/24/20 04:00 Intake & Output 05/23/20 05/24/20 05/24/20 18:59 06:59 18:59 Intake Total 870 420 125 Output Total 430 801 100 Balance 440 -381 25 Weight 89.4 kg Intake: IV 750 420 0.9 320 Cefepime 2 gm In Sodium 100 Chloride 0.9% 100 ml @ 25 mls/hr IVPB Q12HR [facility] Rx #:[id number] Oral 120 125 Output: Urine 400 800 100 Stool 1 Estimated Blood Loss 30 Other: Voiding Method Indwelling Catheter Indwelling Catheter # Voids 0 - Exam General: Sitting up in bed, alert and oriented 3, NAD. Vitals reviewed Eyes: PERRL, EOMI, conjunctiva normal HENT: normocephalic, mucus membranes dry Neck: supple, no JVD Lungs: Increased respiratory effort, no wheezes. Bibasilar crackles CV: Regular rate and rhythm, no murmur. Peripheral pulses 2+. Improving bilateral LE edema. Abdomen: soft, nondistended, no organomegaly, positive bowel sounds. Skin: warm and dry, sacral decubitus ulcer dressing clean dry and intact Neuro: Cranial nerves II through XII grossly intact, no focal deficits. Microbiology 05/20/20 06:54 Blood Blood Culture - Preliminary No Growth after 96 hours 05/19/20 11:02 Stool Stool Culture - Final 05/19/20 22:18 Blood Blood Culture - Preliminary No Growth after 96 hours 05/19/20 17:00 Urine,Clean Catch Urine Culture - Final 05/11/20 12:02 Blood Blood Culture - Final No Growth after 144 hours 05/10/20 13:51 Urine,Voided Urine Culture - Final Klebsiella pneumoniae 05/10/20 16:20 Blood Blood Culture Gram Stain - Final 05/10/20 16:20 Blood Blood Culture - Final Pseudomonas aeruginosa 05/10/20 16:20 Blood Blood Culture - Final - Labs CBC & Chem 7: 05/24/20 07:41 05/24/20 07:41 Labs: Abnormal Lab Results - Last 24 Hours (Table) 05/19/20 05/23/20 05/23/20 Range/Units 11:09 08:44 10:48 WBC (3.8-10.6) k/uL RBC (4.30-5.90) m/uL Hgb (13.0-17.5) gm/dL Hct (39.0-53.0) % RDW (11.5-15.5) % Neutrophils # (1.3-7.7) k/uL Neutrophils # (Manual) (1.3-7.7) k/uL Lymphocytes # (1.0-4.8) k/uL Metamyelocytes # (Man) (0) k/uL Myelocytes # (Manual) (0) k/uL Fibrinogen Antigen 584 H (<350) mg/dL Potassium 2.8 L 2.9 L (3.5-5.1) mmol/L Carbon Dioxide 33 H (22-30) mmol/L BUN 24 H (9-20) mg/dL Glucose (74-99) mg/dL POC Glucose (mg/dL) (75-99) mg/dL Calcium 7.1 L (8.4-10.2) mg/dL 05/23/20 05/23/20 05/24/20 Range/Units 10:48 20:08 06:11 WBC 23.8 H (3.8-10.6) k/uL RBC 2.64 L (4.30-5.90) m/uL Hgb 8.3 L (13.0-17.5) gm/dL Hct 24.6 L (39.0-53.0) % RDW 15.7 H (11.5-15.5) % Neutrophils # (1.3-7.7) k/uL Neutrophils # (Manual) 21.10 H (1.3-7.7) k/uL Lymphocytes # (1.0-4.8) k/uL Metamyelocytes # (Man) 0.24 H (0) k/uL Myelocytes # (Manual) 0.24 H (0) k/uL Fibrinogen Antigen (<350) mg/dL Potassium (3.5-5.1) mmol/L Carbon Dioxide (22-30) mmol/L BUN (9-20) mg/dL Glucose (74-99) mg/dL POC Glucose (mg/dL) 145 H 201 H (75-99) mg/dL Calcium (8.4-10.2) mg/dL 05/24/20 05/24/20 Range/Units 07:41 07:41 WBC 21.6 H (3.8-10.6) k/uL RBC 2.77 L (4.30-5.90) m/uL Hgb 8.8 L (13.0-17.5) gm/dL Hct 26.4 L (39.0-53.0) % RDW 15.7 H (11.5-15.5) % Neutrophils # 19.8 H (1.3-7.7) k/uL Neutrophils # (Manual) (1.3-7.7) k/uL Lymphocytes # 0.6 L (1.0-4.8) k/uL Metamyelocytes # (Man) (0) k/uL Myelocytes # (Manual) (0) k/uL Fibrinogen Antigen (<350) mg/dL Potassium 3.3 L (3.5-5.1) mmol/L Carbon Dioxide (22-30) mmol/L BUN 28 H (9-20) mg/dL Glucose 158 H (74-99) mg/dL POC Glucose (mg/dL) (75-99) mg/dL Calcium 7.1 L (8.4-10.2) mg/dL Microbiology - Last 24 Hours (Table) 05/19/20 11:02 Stool Culture - Final Stool 05/19/20 22:18 Blood Culture - Preliminary Blood No Growth after 96 hours 05/20/20 06:54 Blood Culture - Preliminary Blood No Growth after 72 hours Assessment and Plan Assessment: (1) Severe sepsis with acute organ dysfunction due to acute UTI with Klebsiella pneumoniae, bacteremia with pseudomonas aeruginosa Current Visit: Yes Status: Acute Code(s): A41.52 - SEPSIS DUE TO PSEUDOMONAS; R65.20 - SEVERE SEPSIS WITHOUT SEPTIC SHOCK SNOMED Code(s): 045457708772749 (2) Lambert-Eaton myasthenic syndrome Current Visit: Yes Status: Acute Code(s): G70.80 - LAMBERT-EATON SYNDROME, UNSPECIFIED SNOMED Code(s): 87294286 (3) Cavitary lesion of lung Current Visit: Yes Status: Acute Code(s): J98.4 - OTHER DISORDERS OF LUNG SNOMED Code(s): 414088706 (4) Chemotherapy induced neutropenia Current Visit: Yes Status: Acute Code(s): D70.1 - AGRANULOCYTOSIS SECONDARY TO CANCER CHEMOTHERAPY; T45.1X5A - ADVERSE EFFECT OF ANTINEOPLASTIC AND IMMUNOSUP DRUGS, INIT SNOMED Code(s): 972872568 (5) Pancytopenia Current Visit: Yes Status: Acute Code(s): D61.818 - OTHER PANCYTOPENIA SNOMED Code(s): 810341783 (6) Right leg DVT, status post IVC filter placement Current Visit: Yes Status: Acute Code(s): I82.401 - ACUTE EMBOLISM AND THOMBOS UNSP DEEP VEINS OF R LOW EXTREM SNOMED Code(s): 948727415 (7) Small cell lung cancer Current Visit: Yes Status: Acute Priority: High Code(s): C34.90 - MALIGNANT NEOPLASM OF UNSP PART OF UNSP BRONCHUS OR LUNG SNOMED Code(s): 205149653 (8) Pressure ulcer of sacral region, stage 2 Current Visit: No Status: Acute Code(s): L89.152 - PRESSURE ULCER OF SACRAL REGION, STAGE 2 SNOMED Code(s): 365447382 (9) Type 2 diabetes mellitus Current Visit: No Status: Acute Code(s): E11.9 - TYPE 2 DIABETES MELLITUS WITHOUT COMPLICATIONS SNOMED Code(s): 86784301 (10) hypokalemia (11) pulmonary edema secondary to chemotherapy (12) CAD (13) A. fib with RVR, new onset. (14) sacral decubitus ulcer, stage III ,present on admission, reports worsening over the last 8 weeks. Refer to nursing measurements, status post debridement (15) hypomagnesemia Plan: Continue on current medication regime ,monitoring and symptomatic treat ment. Potassium supplementation ordered. Antiarrhythmics as per cardiology- borderline hypotension. Wound care including Wound VAC as per wound care team. The impression and plan of care has been dictated as directed. : I performed a history and examination of this patient, discussed the same with the dictator. I agree with the dictator's note ,documented as a scribe. Any additional findings or plans will be noted.
[2020-05-24] MEDS: POTASSIUM CHLORIDE ER 20 MEQ TAB.ER PO SCH ×2 (16:52→22:08)
--- NOTE | 2020-05-24 18:08 | P.PN ---
Subjective Progress Note Date: 05/24/20 Principal diagnosis: Sepsis He is doing better after a prolonged hospital stay, plan for homecare with PT/OT to rebuild strength Objective - Vital Signs Vital signs: Vital Signs Temp 97.8 F 05/24/20 16:00 Pulse 103 H 05/24/20 16:00 Resp 18 05/24/20 16:00 BP 111/70 05/24/20 16:00 Pulse Ox 94 L 05/24/20 16:00 Intake & Output 05/23/20 05/24/20 05/24/20 18:59 06:59 18:59 Intake Total 870 420 395 Output Total 430 801 550 Balance 440 -381 -155 Weight 89.4 kg Intake: IV 750 420 30 0.9 320 Cefepime 2 gm In Sodium 100 Chloride 0.9% 100 ml @ 25 mls/hr IVPB Q12HR [facility] Rx #:[id number] Invasive Line 5 30 Oral 120 365 Output: Urine 400 800 550 Stool 1 Estimated Blood Loss 30 Other: Voiding Method Indwelling Catheter Indwelling Catheter Indwelling Catheter # Voids 0 - Exam Yellow to occassional pink in lezama per nursing Patient more alert today Bandage on arm weeping less Mucus Membranes dry - Labs CBC & Chem 7: 05/24/20 07:41 05/24/20 07:41 Labs: Abnormal Lab Results - Last 24 Hours (Table) 05/23/20 05/24/20 05/24/20 Range/Units 20:08 06:11 07:41 WBC (3.8-10.6) k/uL RBC (4.30-5.90) m/uL Hgb (13.0-17.5) gm/dL Hct (39.0-53.0) % RDW (11.5-15.5) % Neutrophils # (1.3-7.7) k/uL Lymphocytes # (1.0-4.8) k/uL Potassium 3.3 L (3.5-5.1) mmol/L BUN 28 H (9-20) mg/dL Glucose 158 H (74-99) mg/dL POC Glucose (mg/dL) 145 H 201 H (75-99) mg/dL Calcium 7.1 L (8.4-10.2) mg/dL 05/24/20 05/24/20 05/24/20 Range/Units 07:41 12:13 16:43 WBC 21.6 H (3.8-10.6) k/uL RBC 2.77 L (4.30-5.90) m/uL Hgb 8.8 L (13.0-17.5) gm/dL Hct 26.4 L (39.0-53.0) % RDW 15.7 H (11.5-15.5) % Neutrophils # 19.8 H (1.3-7.7) k/uL Lymphocytes # 0.6 L (1.0-4.8) k/uL Potassium (3.5-5.1) mmol/L BUN (9-20) mg/dL Glucose (74-99) mg/dL POC Glucose (mg/dL) 184 H 121 H (75-99) mg/dL Calcium (8.4-10.2) mg/dL Microbiology - Last 24 Hours (Table) 05/20/20 06:54 Blood Culture - Preliminary Blood No Growth after 96 hours 05/19/20 11:02 Stool Culture - Final Stool 05/19/20 22:18 Blood Culture - Preliminary Blood No Growth after 96 hours Assessment and Plan (1) Right leg DVT Current Visit: Yes Status: Acute Code(s): I82.401 - ACUTE EMBOLISM AND THOMBOS UNSP DEEP VEINS OF R LOW EXTREM SNOMED Code(s): 624880485 (2) Pancytopenia Current Visit: Yes Status: Acute Code(s): D61.818 - OTHER PANCYTOPENIA SNOMED Code(s): 363830088 (3) Small cell lung cancer Current Visit: Yes Status: Acute Priority: High Code(s): C34.90 - MALIGNANT NEOPLASM OF UNSP PART OF UNSP BRONCHUS OR LUNG SNOMED Code(s): 426296131 (4) Weakness Current Visit: Yes Status: Acute Code(s): R53.1 - WEAKNESS SNOMED Code(s): 36777783 Plan: Assessment and recommendations: Limited Stage Small Cell Lung Cancer: - Status Post cycle one Carbo/[employer]-16 (04/30-05/02) with Neulasta - On Hold for acute issues below Acute Right Lower Extremity DVT: - Restart Eliquis - Status Post IVC filter 05.15.20 UTI/Bacteremia: Afebrile >72 Recovering Thrombocytopenia: - Improved Plan: Continue PPI Discussed with patients and nursing. - Continue supportive care - Recheck CBC and CMP with mag now to reassess rate of bleeding and electrolyte decreases Physician attest: I have completed the full history and physical and agree with above dictation, dictated as a scribe
[2020-05-24 20:21] LABS: Glucose,Whole Blood 230 mg/dL (75-99)
[2020-05-24] MEDS: INSULIN DETEMIR (LEVEMIR) 100 UNIT/ML SYR SQ SCH (21:49)
[2020-05-24] MEDS: PANTOPRAZOLE 40 MG TABLET PO SCH (22:07)
[2020-05-24] MEDS: TAMSULOSIN 0.4 MG CAP.ER.24H PO SCH (22:07)
--- NOTE | 2020-05-24 22:30 | PN ---
PROGRESS NOTE DATE OF SERVICE: 05/24/2020 REASON FOR FOLLOWUP: 1. Leukocytosis. 2. Pseudomonas bacteremia urinary tract infection. 3. Sacral pressure ulcer. INTERVAL HISTORY: The patient is currently afebrile. Patient is breathing comfortably. The patient denies having any chest pain. No shortness of breath or cough. No abdominal pain. No diarrhea or any worsening pain to the sacral wound area. PHYSICAL EXAMINATION: Blood pressure 110/71 with a pulse of 77, temperature of 98.1. He is 93% on room air. General description: The patient is an elderly male lying in bed in no distress. Respiratory system: Unlabored breathing, clear to auscultation anteriorly. Heart S1, S2. Regular rate. ABDOMEN: Soft, no tenderness. LABS: Hemoglobin 8.8, white count 1.6, BUN of 28, creatinine 0.96. Blood and urine cultures have been negative. DIAGNOSTIC IMPRESSION AND PLAN: Patient with leukocytosis which is multifactorial in this patient who did have Pseudomonas bacteremia, also Klebsiella urinary tract infection and sacral pressure ulcer status post debridement. The patient's white count responded to the cefepime. to continue for another 7-10 days. Local care to continue per Surgery. Continue supportive care. MMODL / IJN: [id number] /
[2020-05-25] MEDS: SODIUM CHLORIDE 0.9% 1,000 ML IV SCH (02:09)
[2020-05-25 06:15] LABS: Glucose,Whole Blood 91 mg/dL (75-99)
[2020-05-25] MEDS: INSULIN ASPART (NovoLOG) 100 UNIT/ML VIAL SQ SCH ×2 (06:27→12:43)
[2020-05-25] MEDS: DILTIAZEM ORAL 60 MG TAB PO SCH (09:28)
[2020-05-25] MEDS: FUROSEMIDE 20 MG TAB PO SCH (09:28)
[2020-05-25] MEDS: FLUCONAZOLE 100 MG TAB PO SCH (09:28)
[2020-05-25] MEDS: METOPROLOL TARTRATE 50 MG TAB PO SCH (09:28)
[2020-05-25] MEDS: PANTOPRAZOLE 40 MG TABLET PO SCH (09:28)
[2020-05-25] MEDS: NYSTATIN 100,000 UNIT/ML SUSP 500,000 UNIT/5 ML CUP PO SCH ×2 (09:29→12:46)
[2020-05-25] MEDS: CEFEPIME 2 GM in SODIUM CHLORIDE 0.9% 100 ML IVPB SCH (09:29)
[2020-05-25] MEDS: MAG HYDROX/AL HYDROX/SIMETH 30 ML, LIDOCAINE VISCOUS 30 ML, diphenhydrAMINE ELIXIR 75 M... PO SCH ×4 (09:30)
--- NOTE | 2020-05-25 10:48 | P.PN ---
Subjective Progress Note Date: 05/25/20 CHIEF COMPLAINT: Sacral decubitus ulcer HISTORY OF PRESENT ILLNESS: Patient is status post debridement of decubitus ulcer. He was evaluated by wound care and nurse practitioner and wound VAC is in place. Patient denies any pain at this time. Patient is lying comfortably. He has pillows propped under him to keep pressure off of the ulcer. Patient is afebrile. Also note that attending has ordered consult hospice due to patient's lung cancer history PHYSICAL EXAM: VITAL SIGNS: Reviewed. GENERAL: Well-developed in no acute distress. HEENT: No sclera icterus. Extraocular movements grossly intact. Moist buccal mucosa. Head is atraumatic, normocephalic. ABDOMEN: Soft. Nondistended. Nontender. NEUROLOGIC: Alert and oriented. Cranial nerves II through XII grossly intact. SKIN: Sacral decubitus ulcer about 5 inches in length and 3 inches in width. ASSESSMENT: 1. Sacral decubitus ulcer with eschar tissue status post debridement 2. Small cell lung cancer 3. Lambert Eaton syndrome 4. Right lower extremity DVT status post IVC filter. PLAN: -Continue wound VAC -Continue supportive treatment -Continue the patient keep pressure off of the sacral area Physician Help Desk Coordinator note has been reviewed by physician. Signing provider agrees with the documented findings, assessment, and plan of care. Objective - Vital Signs Vital signs: Vital Signs Temp 98.3 F 05/25/20 04:00 Pulse 99 05/25/20 04:00 Resp 18 05/25/20 04:00 BP 103/67 05/25/20 04:00 Pulse Ox 93 L 05/25/20 04:00 Intake & Output 05/24/20 05/25/20 05/25/20 18:59 06:59 18:59 Intake Total 395 100 120 Output Total 550 1551 Balance -155 -1451 120 Weight 89.2 kg Intake: IV 30 100 Cefepime 2 gm In Sodium 100 Chloride 0.9% 100 ml @ 25 mls/hr IVPB Q12HR [facility] Rx #:[id number] Invasive Line 5 30 Oral 365 120 Output: Urine 550 1550 Stool 1 Other: Voiding Method Indwelling Catheter Indwelling Catheter - Labs CBC & Chem 7: 05/24/20 07:41 05/24/20 07:41 Labs: Abnormal Lab Results - Last 24 Hours (Table) 05/24/20 05/24/20 05/24/20 Range/Units 12:13 16:43 20:20 POC Glucose (mg/dL) 184 H 121 H 230 H (75-99) mg/dL Microbiology - Last 24 Hours (Table) 05/20/20 06:54 Blood Culture - Preliminary Blood No Growth after 120 hours 05/19/20 22:18 Blood Culture - Preliminary Blood No Growth after 120 hours 05/19/20 11:02 Stool Culture - Final Stool
[2020-05-25 11:16] VITALS: BP 117/67; PULSE 121; RESP 16; TEMP 97.3
--- NOTE | 2020-05-25 11:41 | P.DS ---
Providers Date of admission: 05/10/20 16:10 Expected date of discharge: 05/25/20 Attending physician: Matt Snowden MD Consults: 05/10/20 16:12 Consult Physician Urgent Consulting Provider: Alex Scott Consult Reason/Comments: cavitary lung lesion, hx lung cancer on chemo Do you want consulting provider notified?: Yes Consult Physician Urgent Consulting Provider: Omid Farah Consult Reason/Comments: small cell lung cancer on chemo Do you want consulting provider notified?: Yes 05/11/20 10:14 Consult Physician Urgent Consulting Provider: Gary Gilliland Consult Reason/Comments: flash pulmonary edema, fluid overload Do you want consulting provider notified?: Yes 05/11/20 21:12 Consult Physician Routine Consulting Provider: Bessie Todd Consult Reason/Comments: IVC Filter Do you want consulting provider notified?: Yes 05/19/20 15:28 Consult Physician Urgent Consulting Provider: Asa Rubin Consult Reason/Comments: elevated wbc Do you want consulting provider notified?: Yes 05/20/20 14:32 Consult Physician Routine Consulting Provider: Mike Cheatham Consult Reason/Comments: black eschar wound on coccyx, surgical eval per Scottie Do you want consulting provider notified?: Yes, Notify in am Primary care physician: Matt Snowden MD Hospital Course: Final Diagnoses: (1) Severe sepsis with acute organ dysfunction due to acute UTI with Klebsiella pneumoniae, bacteremia with pseudomonas aeruginosa Current Visit: Yes Status: Acute Code(s): A41.52 - SEPSIS DUE TO PSEUDOMONAS; R65.20 - SEVERE SEPSIS WITHOUT SEPTIC SHOCK SNOMED Code(s): 002989975249888 (2) Lambert-Eaton myasthenic syndrome Current Visit: Yes Status: Acute Code(s): G70.80 - LAMBERT-EATON SYNDROME, UNSPECIFIED SNOMED Code(s): 14519632 (3) Cavitary lesion of lung Current Visit: Yes Status: Acute Code(s): J98.4 - OTHER DISORDERS OF LUNG SNOMED Code(s): 835630821 (4) Chemotherapy induced neutropenia Current Visit: Yes Status: Acute Code(s): D70.1 - AGRANULOCYTOSIS SECONDARY TO CANCER CHEMOTHERAPY; T45.1X5A - ADVERSE EFFECT OF ANTINEOPLASTIC AND IMMUNOSUP DRUGS, INIT SNOMED Code(s): 550517570 (5) Pancytopenia Current Visit: Yes Status: Acute Code(s): D61.818 - OTHER PANCYTOPENIA SNOMED Code(s): 778426812 (6) Right leg DVT, status post IVC filter placement Current Visit: Yes Status: Acute Code(s): I82.401 - ACUTE EMBOLISM AND THOMBOS UNSP DEEP VEINS OF R LOW EXTREM SNOMED Code(s): 997492817 (7) Small cell lung cancer Current Visit: Yes Status: Acute Priority: High Code(s): C34.90 - MALIGNANT NEOPLASM OF UNSP PART OF UNSP BRONCHUS OR LUNG SNOMED Code(s): 709744767 (8) Pressure ulcer of sacral region, stage 2 Current Visit: No Status: Acute Code(s): L89.152 - PRESSURE ULCER OF SACRAL REGION, STAGE 2 SNOMED Code(s): 563746353 (9) Type 2 diabetes mellitus Current Visit: No Status: Acute Code(s): E11.9 - TYPE 2 DIABETES MELLITUS WITHOUT COMPLICATIONS SNOMED Code(s): 09789608 (10) hypokalemia (11) pulmonary edema secondary to chemotherapy (12) CAD (13) A. fib with RVR, new onset. (14) sacral decubitus ulcer, stage III ,present on admission, reports worsening over the last 8 weeks. 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 He is approx 7 days s/p his first cycle of carboplatin and etoposide and feels his symptoms have worsened since that time. He has continued to experience severe weakness over the past few months. On presentation he was tachycardic and febrile, WBC 0.8k, Hgb 10.5, plt 36. CTA performed showed no PE and interval enlargement of his hilar mass to 6 cm. He was started on vancomycin and IV fluids, this morning pt complains of continued wet cough and shortness of breath. Complains of just generalized weakness, weak cough,shortness of breath. Maintaining O2 sats in the 90s on 5 L nasal cannula. Afebrile. 05/18/2020 Developed oozing around the skin tear on left forearm, Tranexamic acid applied, improving. Eliquis discontinued, patient has IVC filter. Hemoglobin dropped to 8.1. WBC trending down, 55.1,oncology following.Uncontrolled A. fib, on Cardizem. Telemetry reporting heart rates up into the 150s, currently in the 1 teens. Renal function improving, hypokalemia, potassium 3. 05/21/2020 transfused over the weekend, hemoglobin currently 8.7, platelets 264. No further bleeding, no bloody stools reported. Left forearm site weeping less, hematuria significantly improved. Maintained on cefepime,WBC trending down, 33.1. Afebrile. Repeat blood cultures reporting no growth at 24 hours, repeat urine cultures reporting no growth after 18 hours. Diuresing well on oral Lasix with 24-hour I&O reflecting a negative fluid balance .BUN and creatinine trending down to 24/0.8. Shortness of breath improving. Maintaining O2 sats in the 90s on room air. Telemetry reporting atrial fibrillation with uncontrolled heart rate, on oral Cardizem. 05/22/2020 Evaluated by surgery yesterday with surgical debridement scheduled for tomorrow. Continues on cefepime and Diflucan. Afebrile, WBC continues t rending down to 25. Hemoglobin and platelets down to 8.3 and 224.No further oozing from left forearm site this morning. Diuresing well on oral Lasix, creatinine 0.98. Potassium 2.8, magnesium level ordered. Uncontrolled A. fib with borderline hypotension this morning .Denies shortness of breath this morning, maintaining O2 sats in the mid to high 90s on room air. 05/23/20 This morning, denies pain, denies chest pain, palpitations or shortness of breath. A. fib controlled. Denies shortness of breath with lying flat. No further oozing from left forearm site. No further hematuria. CBC p ending. Potassium 2.9, magnesium 1.4, supplements ordered. 05/24/2020 Status post debridement, tolerated procedure well. Denies pain. Hemoglobin 8.8. Afebrile, WBC trending down 21.6. Potassium 3.3, magnesium 1.9. Borderline hypotension, antiarrhythmics as per cardiology. Patient and have requested she be discharged today with [facility]. Patient will be discharged home today in a stable condition with guarded prognosis. The impression and plan of care has been dictated as directed. : I performed a history and examination of this patient, discussed the same with the dictator. I agree with the dictator's note ,documented as a scribe. Any additional findings or plans will be noted. Patient Condition at Discharge: Stable Plan - Discharge Summary Discharge Rx Participant: No New Discharge Prescriptions: New Diltiazem Oral [Cardizem*] 60 mg PO TID #90 tab Furosemide [Lasix] 60 mg PO BID@0900,1600 #60 tab Metoprolol Tartrate [Lopressor] 100 mg PO BID #120 tab Nystatin 100,000 Unit/ml Susp [Mycostatin Oral Susp] 3,000,000 unit PO TID #90 ml Pantoprazole [Protonix] 40 mg PO BID #60 tablet. HYDROcodone/APAP 5-325MG [[place] 5-325] 1 each PO Q4HR PRN #18 tab PRN Reason: Pain Cephalexin [Keflex] 500 mg PO Q8HR 10 Days #30 cap Continue Tamsulosin HCl [Flomax] 0.4 mg PO HS Sennosides [Senna] 8.6 mg PO AC-BID Fluconazole [Diflucan] See Taper PO DIRECTED Potassium Chloride ER [K-Dur 20] 40 meq PO BID polyethylene glycoL 3350 [Miralax] 17 gm PO DAILY PRN PRN Reason: Constipation Mouth Compound Mix 5 ml PO QID Changed Insulin Glargine [Lantus] 23 unit SQ HS #0 Discontinued carvediloL [Coreg*] 12.5 mg PO AC-BID amLODIPine [Norvasc] 5 mg PO DAILY Losartan Potassium 100 mg PO DAILY Spironolactone [Aldactone] 50 mg PO BID #120 tab Discharge Medication List Tamsulosin HCl [Flomax] 0.4 mg PO HS 01/26/20 [History] Sennosides [Senna] 8.6 mg PO AC-BID 04/10/20 [History] Fluconazole [Diflucan] See Taper PO DIRECTED 05/10/20 [History] Mouth Compound Mix 5 ml PO QID 05/10/20 [History] Potassium Chloride ER [K-Dur 20] 40 meq PO BID 05/10/20 [History] polyethylene glycoL 3350 [Miralax] 17 gm PO DAILY PRN 05/10/20 [History] Cephalexin [Keflex] 500 mg PO Q8HR 10 Days #30 cap 05/25/20 [Rx] Diltiazem Oral [Cardizem*] 60 mg PO TID #90 tab 05/25/20 [Rx] Furosemide [Lasix] 60 mg PO BID@0900,1600 #60 tab 05/25/20 [Rx] HYDROcodone/APAP 5-325MG [[place] 5-325] 1 each PO Q4HR PRN #18 tab 05/25/20 [Rx] Insulin Glargine [Lantus] 23 unit SQ HS #0 05/25/20 [Rx] Metoprolol Tartrate [Lopressor] 100 mg PO BID #120 tab 05/25/20 [Rx] Nystatin 100,000 Unit/ml Susp [Mycostatin Oral Susp] 3,000,000 unit PO TID #90 ml 05/25/20 [Rx] Pantoprazole [Protonix] 40 mg PO BID #60 tablet. 05/25/20 [Rx] Follow up Appointment(s)/Referral(s): Nursing,[facility] [NON-STAFF] - Matt Snowden MD [Primary Care Provider] - As Needed Activity/Diet/Wound Care/Special Instructions: [facility] Discharge Disposition: HOME WITH HOSPICE
[2020-05-25 11:45] LABS: Glucose,Whole Blood 119 mg/dL (75-99)
[2020-05-25 12:21] LABS: Basophils # (A) 0.1 k/uL (0-0.2); Basophils % (A) 0 %; Eosinophils % (A) 0 %; HCT 24.1 % (39.0-53.0); Lymphocytes # (A) 0.8 k/uL (1.0-4.8); Lymphocytes % (A) 4 %; MCH 31.2 pg (25.0-35.0); MCHC 33.4 g/dL (31.0-37.0); MCV 93.4 fL (80.0-100.0); Mean Platelet Volume 7.8; Monocytes # (A) 1.3 k/uL (0-1.0); Monocytes % (A) 5 %; Neutrophils # (A) 21.6 k/uL (1.3-7.7); Neutrophils % (A) 90 %; Platelet Count 316 k/uL (150-450); RBC 2.58 m/uL (4.30-5.90); RDW 15.7 % (11.5-15.5); WBC 23.9 k/uL (3.8-10.6)
[2020-05-25 12:23] LABS: ALT 27 U/L (4-49); AST 28 U/L (17-59); African American GFR (CKD) >90 (>60 ml/min/1.73 sqM); Albumin 2.2 g/dL (3.5-5.0); Alkaline Phosphatase 93 U/L (38-126); Anion Gap 5 mmol/L; Blood Urea Nitrogen 30 mg/dL (9-20); Calcium 7.3 mg/dL (8.4-10.2); Carbon Dioxide 32 mmol/L (22-30); Chloride 104 mmol/L (98-107); Glucose 93 mg/dL (74-99); Magnesium 1.7 mg/dL (1.6-2.3); Non-African American GFR(CKD) 81 (>60 ml/min/1.73 sqM); Sodium 141 mmol/L (137-145); Total Bilirubin 0.4 mg/dL (0.2-1.3); Total Protein 4.7 g/dL (6.3-8.2)
[2020-05-25 12:33] LABS: Potassium 2.7 mmol/L (3.5-5.1)
[2020-05-25] MEDS ORDERED: Potassium Replacement Protocol 1 EACH MISC MISCELLANE PRN (12:36)
[2020-05-25] MEDS: POTASSIUM CHLORIDE ER 20 MEQ TAB.ER PO SCH ×3 (12:45→14:45)
[2020-05-25 13:08] VITALS: BMI 27.4
--- NOTE | 2020-05-25 22:49 | P.PN ---
Subjective Progress Note Date: 05/25/20 Generalized weakness persists but is continuing to improve. He states that he can use to feels somewhat better and stronger. Was in good spirits. No fever/chills/nausea/vomiting. Lower extremity weakness stable. Objective - Vital Signs Vital signs: Vital Signs Temp 97.3 F L 05/25/20 08:00 Pulse 121 H 05/25/20 08:00 Resp 16 05/25/20 12:00 BP 117/67 05/25/20 08:00 Pulse Ox 94 L 05/25/20 08:00 Intake & Output 05/25/20 05/25/20 05/26/20 06:59 18:59 06:59 Intake Total 100 320 Output Total 1551 1 Balance -1451 319 Weight 89.2 kg 89.2 kg Intake: IV 100 Cefepime 2 gm In Sodium 100 Chloride 0.9% 100 ml @ 25 mls/hr IVPB Q12HR [facility] Rx #:[id number] Oral 320 Output: Urine 1550 Stool 1 1 Other: Voiding Method Indwelling Catheter Indwelling Catheter - Constitutional General appearance: Present: no acute distress - EENT Eyes: Present: EOMI ENT: Present: hearing grossly normal, normal oropharynx - Respiratory Respiratory: bilateral: diminished - Cardiovascular Rhythm: regular Heart sounds: normal: S1, S2 - Gastrointestinal General gastrointestinal: Present: normal bowel sounds, soft - Neurologic Neurologic: Present: CNII-XII intact - Musculoskeletal Musculoskeletal Comment(s): Bilateral lower extremity weakness, stable - Labs CBC & Chem 7: 05/25/20 11:13 05/25/20 11:13 Labs: Abnormal Lab Results - Last 24 Hours (Table) 05/25/20 05/25/20 05/25/20 Range/Units 11:13 11:13 11:43 WBC 23.9 H (3.8-10.6) k/uL RBC 2.58 L (4.30-5.90) m/uL Hgb 8.0 L (13.0-17.5) gm/dL Hct 24.1 L (39.0-53.0) % RDW 15.7 H (11.5-15.5) % Neutrophils # 21.6 H (1.3-7.7) k/uL Lymphocytes # 0.8 L (1.0-4.8) k/uL Monocytes # 1.3 H (0-1.0) k/uL Potassium 2.7 L* (3.5-5.1) mmol/L Carbon Dioxide 32 H (22-30) mmol/L BUN 30 H (9-20) mg/dL POC Glucose (mg/dL) 119 H (75-99) mg/dL Calcium 7.3 L (8.4-10.2) mg/dL Total Protein 4.7 L (6.3-8.2) g/dL Albumin 2.2 L (3.5-5.0) g/dL Microbiology - Last 24 Hours (Table) 05/20/20 06:54 Blood Culture - Preliminary Blood No Growth after 120 hours 05/19/20 22:18 Blood Culture - Preliminary Blood No Growth after 120 hours Assessment and Plan (1) Severe sepsis with acute organ dysfunction due to Pseudomonas species Narrative/Plan: This has resolved with aggressive treatment, as well as resolution of his chemotherapy-induced neutropenia. Outpatient antibiotic per ID Status: Acute Code(s): A41.52 - SEPSIS DUE TO PSEUDOMONAS; R65.20 - SEVERE SEPSIS WITHOUT SEPTIC SHOCK SNOMED Code(s): 186921245139489 (2) Small cell lung cancer Narrative/Plan: The patient and his requested discharge with [facility]. Patient's tolerance of initial phase of his treatment was poor, especially this admission when he had severe pancytopenia, sepsis, and other complications including decubitus ulcer. I did discuss with him that hospice would indicate that he does not want to have any more active therapy. The patient stated that at this time he did not think so, but would think about it further at home. He does have follow-up in the office next week. He was advised that he can discuss with and make a final decision regarding resuming active treatment versus continuing on comfort care at that time. Status: Acute Priority: High Code(s): C34.90 - MALIGNANT NEOPLASM OF UNSP PART OF UNSP BRONCHUS OR LUNG SNOMED Code(s): 114286987 (3) Pancytopenia Narrative/Plan: Due to antineoplastic chemotherapy. WBC has recovered with the use of growth factors which have subsequently been discontinued. Platelet count is now normal. Hemoglobin remains low but in a safe range. Status: Acute Code(s): D61.818 - OTHER PANCYTOPENIA SNOMED Code(s): 887582303
--- NOTE | 2020-05-27 08:33 | CDI ---
Documentation Clarification Form Date: 05/27/2020 08:24:00 AM From: Alethea Beverly Phone: To: Alethea Beverly If you have a question about this query, please contact Sue Fernando Mannequin Coloring Artist at [phone] between 8am and 5pm. Admit Date: 05/10/2020 04:10:00 PM Patient Name: Eitan Quezada Visit Number: [id number] Discharge Date: 05/25/2020 05:00:00 PM ATTENTION: The Clinical Documentation Specialists (CDI) and [facility] Coding Staff appreciate your assistance in clarifying documentation. Please respond to the clarification below the line at the bottom and electronically sign. The CDI & [facility] Coding staff will review the response and follow-up if needed. Please note: Queries are made part of the Legal Health Record. If you have any questions, please contact the author of this message via ITS. Dr. Matt Snowden Conflicting documentation has been found in the medical record: DCS in Final Diagnosis documents Number 8 as stage II decubitus sacral ulcer and Number 14 as Stage III sacral decubitus ulcer POA. Dr. Kyle consult documents stage II on 05/11. Please clarify if patient had a Stage II sacral decubitus ulcer or a Stage III sacral decubiuts ulcer and which was POA. History/Risk Factors: bedridden, Diabetic Clinical Indicators: Treatment: Debridement, apple honey alginate, Roho cushion, moistened gauze and fom border gauze. In your opinion, what is the most clinically appropriate diagnosis for this patient? Stage II sacral decubitus ulcer POA Stage III sacral decubitus ulcer POA Stage II POA to Stage III Other explanation of clinical findings Unable to determine (no explanation for clinical findings) Stage III sacral decubitus ulcer POA MTDD
--- NOTE | 2020-05-27 08:42 | CDI ---
Documentation Clarification Form Date: 05/27/2020 08:34:00 AM From: Alethea Beverly Phone: To: Alethea Beverly If you have a question about this query, please contact Sue Fernando Compliance Assistant at [phone] between 8am and 5pm. Admit Date: 05/10/2020 04:10:00 PM Patient Name: Eitan Quezada Visit Number: [id number] Discharge Date: 05/25/2020 05:00:00 PM ATTENTION: The Clinical Documentation Specialists (CDI) and [facility] Coding Staff appreciate your assistance in clarifying documentation. Please respond to the clarification below the line at the bottom and electronically sign. The CDI & [facility] Coding staff will review the response and follow-up if needed. Please note: Queries are made part of the Legal Health Record. If you have any questions, please contact the author of this message via ITS. Dr. Mike Quinterosania Per your progress notes/operative note, a debridement was performed on 05/23/2020. History/Risk Factors: Sacral Decubitus ulcer Treatment: Debridement. Specimen sent to pathology pending. Five elements required for accurate and compliant documentation of a debridement: 1. Technique used (e.g., excisional, excised, cutting, etc.) 2. Instrument(s) used (e.g., scalpel, curette, etc.) 3. Nature of the tissue removed (e.g., necrotic, devitalized tissues, non- viable tissue, etc.) 4. Appearance and size of the wound (e.g., down to fresh bleeding tissue, 7cm x 10cm, etc.) 5. Depth of the debridement* (e.g., skin, subcutaneous tissue, fascia, muscle, bone, etc.) In order to capture the severity of condition and code the appropriate procedure; could you please document the following: Excisional debridement (the removal of necrotic, devitalized tissue or slough by means of cutting away of tissue) Non-excisional debridement (the removal of necrotic, devitalized tissue or slough by means of flushing, brushing, or washing. (Irrigation) Depth of debridement Other; please specify Unable to determine Scalpel was used to excise the tissue. The tissue was necrotic devitalized skin and fat MTDD
== END 2020-05-25 17:00 | disposition hospice, home (50) | DRG 871 ==
LOC: EC 12:57 → 3SCARD 16:10
PROVIDERS: ADMIT Family Medicine; ATTEND Family Medicine
PROC: 05HF33Z Insertion of Infusion Device into Left Cephalic Vein, Percutaneous Approach (ICD-10-PCS; 2020-05-15)
PROC: 06H03DZ Insertion of Intraluminal Device into Inferior Vena Cava, Percutaneous Approach (ICD-10-PCS; principal; 2020-05-15 09:00)
PROC: 30233R1 Transfusion of Nonautologous Platelets into Peripheral Vein, Percutaneous Approach (ICD-10-PCS; 2020-05-19)
PROC: 30233N1 Transfusion of Nonautologous Red Blood Cells into Peripheral Vein, Percutaneous Approach (ICD-10-PCS; 2020-05-19)
PROC: 0HB6XZZ Excision of Back Skin, External Approach (ICD-10-PCS; 2020-05-23)
DX: A41.52 Sepsis due to Pseudomonas (principal); L89.153 Pressure ulcer of sacral region, stage 3; D61.810 Antineoplastic chemotherapy induced pancytopenia; J81.0 Acute pulmonary edema; J96.01 Acute respiratory failure with hypoxia; R65.21 Severe sepsis with septic shock; C34.90 Malignant neoplasm of unspecified part of unspecified bronchus or lung; D62 Acute posthemorrhagic anemia; D68.69 Other thrombophilia; G70.80 Lambert-Eaton syndrome, unspecified; I82.411 Acute embolism and thrombosis of right femoral vein; I48.19 Other persistent atrial fibrillation; I48.92 Unspecified atrial flutter; J98.11 Atelectasis; K62.5 Hemorrhage of anus and rectum; A41.59 Other Gram-negative sepsis; D70.1 Agranulocytosis secondary to cancer chemotherapy; E11.622 Type 2 diabetes mellitus with other skin ulcer; E78.5 Hyperlipidemia, unspecified; E83.42 Hypomagnesemia; E87.5 Hyperkalemia; E87.6 Hypokalemia; E87.70 Fluid overload, unspecified; Z51.5 Encounter for palliative care; F32.9 Major depressive disorder, single episode, unspecified; G47.33 Obstructive sleep apnea (adult) (pediatric); H91.90 Unspecified hearing loss, unspecified ear; I10 Essential (primary) hypertension; I25.10 Atherosclerotic heart disease of native coronary artery without angina pectoris; I45.10 Unspecified right bundle-branch block; B96.1 Klebsiella pneumoniae [K. pneumoniae] as the cause of diseases classified elsewhere; J98.4 Other disorders of lung; K12.30 Oral mucositis (ulcerative), unspecified; K59.00 Constipation, unspecified; L98.499 Non-pressure chronic ulcer of skin of other sites with unspecified severity; M19.90 Unspecified osteoarthritis, unspecified site; N30.91 Cystitis, unspecified with hematuria; N40.0 Benign prostatic hyperplasia without lower urinary tract symptoms; R04.0 Epistaxis; S51.812A Laceration without foreign body of left forearm, initial encounter; T45.1X5A Adverse effect of antineoplastic and immunosuppressive drugs, initial encounter; Z74.01 Bed confinement status; Z79.4 Long term (current) use of insulin; Z79.899 Other long term (current) drug therapy; Z86.711 Personal history of pulmonary embolism; Z87.01 Personal history of pneumonia (recurrent); E27.9 Disorder of adrenal gland, unspecified
CPT/HCPCS: 36410; 36415; 37191; 71045; 71046; 71275; 76937; 80048; 80053; 80076; 80202; 81001; 82272; 82550; 82607; 82728; 83010; 83540; 83550; 83605; 83615; 83630; 83735; 83874; 83880; 83921; 84100; 84132; 84145; 84439; 84443; 84484; 85025; 85027; 85045; 85230; 85379; 85384; 85385; 85520; 85610; 85730; 86022; 86140; 86850; 86900; 86901; 86920; 87040; 87045; 87046; 87077; 87086; 87186; 87324; 88304; 88312; 93005; 93970; 94760; 96361; 96365; 96375; 99285